=== PATIENT | female | born 2000 | race Caucasian/White ===

== ENCOUNTER 2023-02-03 12:47 | Emergency (ER) | payer SELFPAY ==
[2023-02-03 13:01] VITALS: BP 131/81; PULSE 83; O2SAT 100
[2023-02-03 13:02] VITALS: BP 131/81; PULSE 107; RESP 16; TEMP 37.1; O2SAT 99; BMI 25.9
--- NOTE | 2023-02-03 13:26 | XR_ITS ---
PROCEDURE INFORMATION: Exam: XR Left Ankle Exam date and time: 02/03/2023 2:11 PM Age: 22 years old Clinical indication: Injury or trauma; Fall; Sprain or strain; Ankle; Left; Injury date: Last night; Additional info: Fall, pain in mid lateral foot into ankle TECHNIQUE: Imaging protocol: Radiologic exam of the left ankle. Views: 3 or more views. COMPARISON: No relevant prior studies available. FINDINGS: Bones/joints: No fractures, dislocations, or bone lesions. No significant joint space narrowing or widening. Soft tissues: No soft tissue gas, radiopaque foreign bodies, or masses. IMPRESSION: No acute findings in the left ankle.
--- NOTE | 2023-02-03 13:26 | XR_ITS ---
PROCEDURE INFORMATION: Exam: XR Left Foot Exam date and time: 02/03/2023 2:12 PM Age: 22 years old Clinical indication: Injury or trauma; Fall; Sprain or strain; Foot; Left; Injury date: Last night; Additional info: Fall, pain in mid lateral foot into ankle TECHNIQUE: Imaging protocol: Radiologic exam of the left foot. Views: 3 or more views. COMPARISON: CR XR ANKLE LT MIN 3V 02/03/2023 2:11 PM FINDINGS: Bones/joints: No fractures, dislocations, or focal bone lesions. Soft tissues: No masses, soft tissue gas, or radiopaque foreign bodies. IMPRESSION: No acute findings in the left foot.
--- NOTE | 2023-02-03 13:27 | HMH.EDGENADL ---
Discharge Plan Disposition Patient Disposition: Home, Self-Care Condition: Good Prescriptions Prescriptions: No Action norethindrone-e.estradiol-iron [06/22 (28)] 1 EACH Tablet 1 tab PO DAILY Patient Comments: TAKE 1 TABLET BY MOUTH EVERY DAY phenazopyridine 200 MG Tablet 200 pow PO TID Qty: 6 0RF nitrofurantoin monohyd/m-cryst [Macrobid] 100 MG Capsule 100 mg PO BID Qty: 20 0RF Referrals Follow up/Referrals: Provider,Referral, [Primary Care Provider] - See instructions Alexandre Alex DO [Staff Physician] - See instructions (L foot/ankle injury) Activity Restrictions/Add. Instructions Additional Instructions/Restrictions: You were evaluated in the emergency department today for left foot pain. You do not have fracture, dislocation, or other injury to the left foot or ankle. You have been referred to Dr. Alex for orthopedic follow-up. Take Tylenol and ibuprofen at home if needed for pain. Keep your ankle supported and use crutches until you have been reevaluated. Make an appointment with your primary care physician for reevaluation. Return to the emergency department with new or worsening symptoms. Clinical Impressions Clinical Impression: Acute pain of left foot Stand Alone Forms Stand Alone Forms: Work/School Release Discharge ED Provider: Dwight Thakkar Adult HPI General Chief complaint: Fall Stated complaint: AO fall 02/02, left foot pain Time Seen by Provider: 02/03/23 13:17 Mode of Arrival: Ambulatory Source of Information: Patient Limitations: No Limitations Description of Symptoms (Recalled from ER Triage Doc. by RN): pt reports she was walking along side walk yesterday and tripped, pt had a fall but reports twisting and popping of right foot. History of Present Illness HPI narrative: This otherwise healthy 22-year-old female presents to the emergency department with concerns of left foot pain. Patient states she fell in a friend's driveway last night and the foot rolled outward. She heard a loud pop and has had extreme pain since that time. She is only minimally able to walk on the foot. She describes bruising and swelling. She states she has not taken any medications for her symptoms yet at this time. Patient did not hit her head, no loss of consciousness, no other complaints of injury. Related Data Home Medications Medication Instructions Recorded Confirmed norethindrone 1 mg-ethinyl 1 tab PO DAILY control 06/14/18 06/14/18 estradiol 20 mcg (21)-iron 75 mg (7) tablet (Junel FE 06/22 (28)) Previous Rx's Medication Instructions Recorded nitrofurantoin 100 mg PO BID ##20 06/14/18 monohydrate/macrocrystals 100 mg capsule (Macrobid) phenazopyridine 200 mg tablet 200 pow PO TID ##6 06/14/18 Allergies Allergy/AdvReac Type Severity Reaction Status Date / Time ATUSS Allergy Uncoded 06/14/18 12:22 [facility] Disclaimer: The information contained in this section may have been updated after the patient was seen, as this information can be updated by other users. Social History Smoking Status: Current every day smoker alcohol intake: never current occupational status: employed Travel in the last 8 weeks: None ROS Obtained: Yes All systems reviewed & no additional complaints except as documented Constitutional Constitutional: Denies chills, Denies fever(s), Denies headache(s) and Denies weakness Eyes Eyes: Denies change in vision ENT Ears, Nose, Mouth, and Throat: Denies dizziness, Denies headache(s), Denies nasal congestion and Denies sore throat Cardiovascular Cardiovascular: Denies chest pain, Denies dyspnea and Denies leg edema Respiratory Respiratory: Denies cough and Denies dyspnea Gastrointestinal Gastrointestingal: Denies constipation, diarrhea, nausea or vomiting Genitourinary Female Genitourinary: Denies dysuria Musculoskeletal Musculoskeletal: Reports arthralgias (Left foot and ankle pain), Denie
[2023-02-03 13:34] LABS: Microscopic, Urine URINE MICROSCOPIC (MICROSCOPIC)
[2023-02-03 13:50] LABS: Appearance,Urine Clear (Clear); Bilirubin,Urine Negative (Negative); Blood, Urine Negative (Negative); Color,Urine Yellow (Yellow); Glucose,Urine (UA) Negative (Negative); Ketones,Urine Negative (Negative); Nitrate,Urine Negative (Negative); PH,Urine 7.5 (5.0-8.5); Protein,Urine Negative (Negative); Specific Gravity, Urine 1.015 (1.005-1.030); Urobilinogen,Urine 0.2 EU/dl (0.2)
[2023-02-03 13:51] LABS: Leukocyte Esterase,Urine Negative (Negative)
[2023-02-03 14:09] LABS: Urine Pregnancy, HCG Qual. Negative (Negative)
[2023-02-03 14:30] LABS: Bacteria,Urine Trace /lpf
--- NOTE | 2023-02-03 14:31 | PC.NURSE ---
rounded on pt nothing needed at this time,call light at bs
--- NOTE | 2023-02-03 15:50 | PC.NURSE ---
rounded on pt she resting in bed stated no needs at this time, visitor at bs
[2023-02-03 16:19] VITALS: BP 128/74; PULSE 95; RESP 14; TEMP 36.6; O2SAT 98
--- NOTE | 2023-02-05 02:13 | PC.NURSE ---
chart accessed for demographics for ortho papers
== END 2023-02-03 16:21 | disposition home or self-care (01) ==
PROVIDERS: Emergency Provider Emergency Medicine
DX: M79.672 Pain in left foot (principal); W01.0XXA Fall on same level from slipping, tripping and stumbling without subsequent striking against object, initial encounter; F17.200 Nicotine dependence, unspecified, uncomplicated
CPT/HCPCS: 73610; 73630; 81001; 81025; 99285

== ENCOUNTER 2023-11-05 18:50 | Emergency (ER) | payer OTHER, SELFPAY ==
--- NOTE | 2023-11-05 18:56 | HMH.EDGENADL ---
Discharge Plan Disposition Patient Disposition: Home, Self-Care Condition: Good Prescriptions Prescriptions: New amoxicillin-pot clavulanate 875-125 mg tablet 1 tab PO BID Qty: 20 0RF No Action norethindrone-e.estradiol-iron [06/22 (28)] 1 EACH tablet 1 tab PO DAILY Patient Comments: TAKE 1 TABLET BY MOUTH EVERY DAY phenazopyridine 200 MG tablet 200 pow PO TID Qty: 6 0RF nitrofurantoin monohyd/m-cryst [Macrobid] 100 MG capsule 100 mg PO BID Qty: 20 0RF Referrals Follow up/Referrals: Provider,Referral, [Primary Care Provider] - See instructions Activity Restrictions/Add. Instructions Additional Instructions/Restrictions: Please take all antibiotics as prescribed. Please ask at the pharmacy for a GoodRX card. Please call in the morning and try to get in sooner with your dentist. Return to the ER for any worsening signs or symptoms as needed. Clinical Impressions Clinical Impression: Pain due to dental caries Instructions Patient Instructions: DI for Dental Pain Discharge ED Provider: Tuan Bradley General Adult HPI <MICHAEL Kasper - Last Filed: 11/05/23 19:15> General Chief complaint: Dental/Oral Stated complaint: Left jaw pain Time Seen by Provider: 11/05/23 18:54 History of Present Illness HPI narrative: Patient presents for evaluation of left lower jaw pain. Patient has a history of a fractured tooth and has previous abscess at the same place. Unfortunately patient is self-pay and had could not afford to pay for an extraction. The abscess did go away however patient feels like that she is developing again with increasing dental pain and fullness in the same location. She denies chest pain shortness of breath fever chills hemoptysis hematochezia melena nausea vomit diarrhea. Patient does have a dentist appointment at the end of this month to have the tooth taken out. Related Data Home Medications Medication Instructions Recorded Confirmed norethindrone 1 mg-ethinyl 1 tab PO DAILY control 06/14/18 06/14/18 estradiol 20 mcg (21)-iron 75 mg (7) tablet (06/22 (28)) Previous Rx's Medication Instructions Recorded nitrofurantoin 100 mg PO BID #20 caps 06/14/18 monohydrate/macrocrystals 100 mg capsule (Macrobid) phenazopyridine 200 mg tablet 200 pow PO TID #6 tabs 06/14/18 amoxicillin 875 mg-potassium 1 tab PO BID #20 tabs 11/05/23 clavulanate 125 mg tablet Allergies Allergy/AdvReac Type Severity Reaction Status Date / Time dextromethorphan Allergy Unknown Verified 11/05/23 19:09 allergy reaction ATUSS Allergy Unknown Uncoded 08/19/23 12:38 allergy reaction PFSH <MICHAEL Kasper - Last Filed: 11/05/23 19:15> [facility] Disclaimer: The information contained in this section may have been updated after the patient was seen, as this information can be updated by other users. Social History (Updated 02/03/23 @ 16:06 by Dwight Thakkar MD) Smoking Status: Current every day smoker alcohol intake: never current occupational status: employed Travel in the last 8 weeks: None <MICHAEL Kasper - Last Filed: 11/05/23 19:15> ROS Obtained: Yes Systems reviewed as appropriate & no additional complaints except as documented Physical Exam <MICHAEL Kasper - Last Filed: 11/05/23 19:15> General General appearance: alert and in no apparent distress Expanded ENT Exam Open Mouth Image: 1. Broken tooth #18 with dental caries #17 Teeth exam: Present dental caries, fractured tooth # and dental tenderness #; Absent gingival swelling Neck Neck exam: Present normal inspection; Absent lymphadenopathy Respiratory Respiratory exam: Present normal lung sounds bilaterally Cardiovascular Cardiovascular exam: Present regular rate and normal rhythm Neurological Exam Neurological exam: Present alert and oriented X3 Medical Decision Making <MICHAEL Kasper - Last Filed: 11/05/23 19:15> Medical Records Medical records reviewed: Yes I reviewed the patient's medical records. Lucho Inquiry Pt receiving controlled substance: No Vital Signs: 11/05/23 19:05 11/05/23 19:26 Temperature 97.8 F 98.0 F Temperature Source Oral Oral Pulse Rate 73 Pulse Rate [Left] 87 Respiratory Rate 16 16 Blood Pressure 111/72 Blood Pressure [Right Arm] 139/96 H Blood Pressure Mean [Right Arm] 110 Blood Pressure Source Automatic Cuff Blood Pressure Source [Right Arm] Automatic Cuff Blood Pressure Position Sitting Blood Pressure Position [Right Arm] Sitting 02 Sat by Pulse Oximetry 100 Oxygen Delivery Method Room Air Orders (Tests/Meds): ED MEDICATIONS Discontinued Medications Generic Name Dose Route Start Last Admin Trade Name Freq PRN Reason Stop Dose Admin Amoxicillin/Clavulanate Potassium 1 each 11/05/23 19:03 11/05/23 19:22 Amoxicillin/Clavulanate Potassium 875/125mg Tablet PO 11/05/23 19:04 1 each ONCE ONE Administration Medical Decision Narrative: In summary patient is a 23-year-old female who presents to the emergency department for evaluation of left lower jaw pain. Patient is hemodynamically stable upon arrival, afebrile. Physical exam is remarkable for a fractured molar (tooth 18) with adjacent dental caries of the last molar (tooth #17) with no evidence of gingival edema or erythema however there is mandibular pain on palpation. No discrete abscess is noted by palpation currently. Differential diagnosis includes dentalgia versus developing abscess. Given that the patient has known dentalgia and dental caries I had interactive discussion patient about workup versus antibiotic treatment follow-up with dentistry. Via patient directed decision making she is elected to follow-up with dentistry with antibiotic coverage initiated here. I also offered the patient dental block however she is apprehensive and has elected to decline that currently. Given that patient is appropriate for discharge home with first dose of Augmentin given here and close follow-up with dentistry. <Tuan Bradley MD - Last Filed: 11/05/23 21:38> Vital Signs: 11/05/23 19:05 11/05/23 19:26 Temperature 97.8 F 98.0 F Temperature Source Oral Oral Pulse Rate 73 Pulse Rate [Left] 87 Respiratory Rate 16 16 Blood Pressure 111/72 Blood Pressure [Right Arm] 139/96 H Blood Pressure Mean [Right Arm] 110 Blood Pressure Source Automatic Cuff Blood Pressure Source [Right Arm] Automatic Cuff Blood Pressure Position Sitting Blood Pressure Position [Right Arm] Sitting 02 Sat by Pulse Oximetry 100 Oxygen Delivery Method Room Air Orders (Tests/Meds): ED MEDICATIONS Discontinued Medications Generic Name Dose Route Start Last Admin Trade Name Freq PRN Reason Stop Dose Admin Amoxicillin/Clavulanate Potassium 1 each 11/05/23 19:03 11/05/23 19:22 Amoxicillin/Clavulanate Potassium 875/125mg Tablet PO 11/05/23 19:04 1 each ONCE ONE Administration Medical Decision Narrative: In summary patient is a 23-year-old female who presents to the emergency department for evaluation of left lower jaw pain. Patient is hemodynamically stable upon arrival, afebrile. Physical exam is remarkable for a fractured molar (tooth 18) with adjacent dental caries of the last molar (tooth #17) with no evidence of gingival edema or erythema however there is mandibular pain on palpation. No discrete abscess is noted by palpation currently. Differential diagnosis includes dentalgia versus developing abscess. Given that the patient has known dentalgia and dental caries I had interactive discussion patient about workup versus antibiotic treatment follow-up with dentistry. Via patient directed decision making she is elected to follow-up with dentistry with antibiotic coverage initiated here. I also offered the patient dental block however she is apprehensive and has elected to decline that currently. Given that patient is appropriate for discharge home with first dose of Augmentin given here and close follow-up with dentistry. I was consulted by the DOMINGA, and we discussed the complexity of the problems being addressed. I approved the treatment and management plan for this patient?s care in the Emergency Department, thus performing a substantive portion of the medical decision making. Tuan Bradley MD Critical Care <MICHAEL Kasper - Last Filed: 11/05/23 19:15> Critical Care Time Critical Care Time: No
--- NOTE | 2023-11-05 19:00 | PC.NURSE ---
Don at BS for pt eval
[2023-11-05 19:05] VITALS: BP 139/96; PULSE 87; RESP 16; TEMP 36.6; O2SAT 100; BMI 28.1
[2023-11-05] MEDS: AMOXICILLIN/CLAVULANATE POTASSIUM 875/125MG TABLET 1 EACH PO (19:22)
[2023-11-05 19:26] VITALS: BP 111/72; PULSE 73; RESP 16; TEMP 36.7; O2SAT 98
== END 2023-11-05 19:27 | disposition home or self-care (01) ==
PROVIDERS: Emergency Provider Emergency Medicine
DX: R68.84 Jaw pain (principal); K02.9 Dental caries, unspecified; F17.210 Nicotine dependence, cigarettes, uncomplicated
CPT/HCPCS: 99283

== ENCOUNTER 2023-11-17 19:08 | Emergency (ER) | payer OTHER, SELFPAY ==
[2023-11-17 19:10] VITALS: BP 139/85; PULSE 91; RESP 18; TEMP 36.8; O2SAT 97; BMI 24.0
[2023-11-17 19:23] LABS: Apearance,Urine Clear (Clear); Bilirubin,Urine Negative (Negative); Blood, Urine Negative (Negative); Color,Urine Yellow (Yellow); Glucose,Urine (UA) Negative (Negative); Ketones,Urine Negative (Negative); PH,Urine 6.5 (5.0-8.5); Protein,Urine 2+ (Negative); UTC Leukocyte Esterase,Urine Negative (Negative); UTC Nitrate,Urine Negative (Negative); UTC Pregnancy Test, Urine Negative (Negative); Urobilinogen,Urine 1 EU/dl (0.2)
[2023-11-17 19:30] VITALS: BP 129/89; BP 129/91; BP 132/85; PULSE 89; PULSE 91; PULSE 93
--- NOTE | 2023-11-17 19:30 | ED_ITS ---
Discharge Plan Disposition Patient Disposition: Home, Self-Care Condition: Good Prescriptions Prescriptions: New meclizine [Antivert] 25 mg tablet,chewable 25 mg PO TID PRN (Reason: dizziness) Qty: 20 0RF Referrals Follow up/Referrals: Provider,Referral, MD [Primary Care Provider] - See instructions Activity Restrictions/Add. Instructions Additional Instructions/Restrictions: Drink plenty of fluids. Take the medication (antivert/meclizine) as directed. It will make you drowsy, so don't drive or operate heavy machinery after taking it. Follow up with your regular doctor. GO TO THE ER FOR ANY WORSENING SYMPTOMS Clinical Impressions Clinical Impression: Vertigo Instructions Patient Instructions: DI for Vertigo, Vertigo, Meclizine Discharge ED Provider: Scotty Zarco [facility] General Stated complaint: dizzy Mode of Arrival: Ambulatory Source of Information: Patient Limitations: No Limitations Time Seen by Provider: 11/17/23 19:30 Description of Symptoms (Recalled from Triage Doc. by RN): PATIENT REPORTS HAVING DIZZINESS AND FEELING OFF-BALANCE THROUGHOUT THE DAY TODAY, PRIMARILY WHEN WALKING. SHE REPORTS GETTING YESTERDAY AND HAVING OTHER RECENT STRESSORS. PATIENT SAID SHE DID LIGHTLY HIT HER HEAD ON A WINDOW SILL YESTERDAY, BUT STATES SHE DID NO HAVE LOC OR HEADACHE FROM IT. PATIENT DENIES FALLING, PASSING OUT, EAR PAIN. HEENT Symptoms (Recalled from RN notes): Yes Resp Symptoms (Recalled from RN notes): No Skin Symptoms (Recalled from RN notes): No MS Symptoms (Recalled from RN notes): No Functional Status (Recalled from RN notes): WNL History of Present Illness Provider Complaint: She states that she has had dizziness on and off through out today. She states that her symptoms are worse when she is walking and turning. She denies headache, fever, ear pain and any other symptoms. She denies heart palpitations, chest pain and shortness of breath. Related Data Previous Rx's Medication Instructions Recorded meclizine 25 mg chewable tablet 25 mg PO TID PRN dizziness #20 tabs 11/17/23 (Antivert) Allergies Allergy/AdvReac Type Severity Reaction Status Date / Time dextromethorphan Allergy Unknown Verified 11/05/23 19:09 allergy reaction guaifenesin [From Robitussin] Allergy Verified 11/17/23 19:22 Worker's Comp Is this a Worker's Comp case?: No [facility] Disclaimer: The information contained in this section may have been updated after the patient was seen, as this information can be updated by other users. Social History (Updated 02/03/23 @ 16:06 by Dwight Thakkar MD) Smoking Status: Current every day smoker alcohol intake: never current occupational status: employed Travel in the last 8 weeks: None ROS Obtained: Yes All systems reviewed & no additional complaints except as documented Constitutional Constitutional: Denies chills, Denies fever(s), Denies frequent falls, Denies h eadache(s) and Denies weakness Eyes Eyes: Denies eye discharge and Denies loss of vision ENT Ears, Nose, Mouth, and Throat: Denies disequilibrium, Reports dizziness, Denies otalgia, Denies headache(s), Denies sore throat and Reports vertigo Cardiovascular Cardiovascular: Denies chest pain and Denies syncope Respiratory Respiratory: Denies shortness of breath, Denies chest congestion, Denies cough, Denies stridor and Denies wheezing Gastrointestinal Gastrointestingal: Denies nausea or vomiting Musculoskeletal Musculoskeletal: Reports system reviewed and no additional complaints, except as documented, Denies abnormal gait and Denies arthralgias Integumentary/Breasts Skin/Breast: Denies rash Neurologic Neurologic: Reports as per HPI, Denies abnormal gait, Denies burning sensations, Denies confusion, Denies disequilibrium, Reports dizziness, Denies focal weakness, Denies frequent falls, Denies headache(s), Denies lack of coordination, Denies loss of vision, Denies memory loss, Denies other visual disturbances, Denies paresthesias, Denies radicular pain, Denies seizure-like activity, Denies sensory deficit, Denies syncope, Denies tremor(s), Reports vertigo and Denies weakness Allergic/Immunologic Allergic/Immunologic: Denies wheezing Physical Exam General General appearance: alert and in no apparent distress Head Head exam: atraumatic, normocephalic and normal inspection Eye Eye exam: Present normal appearance, PERRL and EOMI ENT ENT exam: Present normal exam, normal oropharynx, mucous membranes moist, TM's normal bilaterally and normal external ear exam Neck Neck exam: Present normal inspection, full ROM and trachea midline; Absent meningismus or lymphadenopathy Chest Chest inspection: Present normal inspection and symmetric chest wall rise; Absent tenderness Respiratory Respiratory exam: Present normal lung sounds bilaterally; Absent respiratory distress Cardiovascular Cardiovascular exam: Present regular rate and normal rhythm; Absent JVD Abdominal Exam Abdominal exam: Present soft and normal bowel sounds; Absent distention, tenderness or guarding Extremities Exam Extremities exam: Present normal inspection, full ROM and normal capillary refill; Absent calf tenderness Back Exam Back exam: Present normal inspection; Absent tenderness Neurological Exam Neurological exam: Present alert, oriented X3, CN II-XII intact, normal gait and reflexes normal; Absent motor sensory deficit Expanded Neurological Exam Cranial nerves: Normal: EOM function (II, III, IV, ), facial sensation (V), facial palsy (VII), gag reflex (IX), spinal accessory function (XI) and tongue deviation (XII) Cerebellar function: normal gait and Romberg normal Motor strength - LUE: 5/5 Motor strength - RUE: 5/5 Motor strength - LLE: 5/5 Motor strength - RLE: 5/5 Upper motor neuron exam: Normal: damari neglect and sensory extinction Sensory exam upper extremity: Normal: light touch and 2 point discrimination Sensory exam lower extremity: Normal: light touch and 2 point discrimination DTR: 2+: biceps (L), biceps (R), patellar (L), patellar (R), Achilles tendon (L) and Achilles tendon (R) Psychiatric Psychiatric exam: Present normal affect and normal mood Skin Skin exam: Present warm, dry, intact and normal color Lymphatic Lymphatic Findings: no adenopathy Medical Decision Making Medical Records Medical records reviewed: No I reviewed the patient's medical records. Lucho Inquiry Pt receiving controlled substance: No Vital Signs: 11/17/23 19:10 Temperature 98.2 F Temperature Source Oral Pulse Rate [Left Brachial] 91 H Respiratory Rate 18 Blood Pressure [Left Arm] 139/85 Blood Pressure Mean [Left Arm] 103 Blood Pressure Source [Left Arm] Automatic Cuff Blood Pressure Position [Left Arm] Sitting 02 Sat by Pulse Oximetry 97 Oxygen Delivery Method Room Air Lab Data Lab results reviewed: Yes I reviewed the patient's lab results. Lab Results 11/17/23 19:22: Urine Color Yellow, Urine Appearance Clear, Urine pH 6.5, Ur Specific [place] 1.020, Urine Protein 2+, Urine Glucose (UA) Negative, Urine Ketones Negative, Urine Blood Negative, Urine Nitrate Negative, Urine Bilirubin Negative, Urine Urobilinogen 1, Ur Leukocyte Esterase Negative, Tst Clinic Negative
[2023-11-17 19:42] VITALS: BP 139/85; PULSE 91; RESP 18; TEMP 36.8; O2SAT 97
== END 2023-11-17 19:46 | disposition home or self-care (01) ==
PROVIDERS: Emergency Provider Nurse Practitioner Family
DX: R42 Dizziness and giddiness; F17.210 Nicotine dependence, cigarettes, uncomplicated
CPT/HCPCS: 81003; 81025; 99204; 99212; G0463

== ENCOUNTER 2023-11-21 13:54 | Emergency (ER) | payer OTHER, SELFPAY ==
[2023-11-21 13:55] VITALS: BP 130/87; PULSE 125; RESP 20; TEMP 37.2; O2SAT 97; BMI 24.0
--- NOTE | 2023-11-21 14:03 | ED_ITS ---
<Statement entered by Jemma De Oliveira MD - 11/21/23 23:12> I was consulted by the DOMINGA, and we discussed the complexity of the problems being addressed. I approved the treatment and management plan for this patient's care in the emergency department, thus performing a substantive portion of the medical decision making. Jemma De Oliveira MD, ARVIN, FACEP Discharge Plan Disposition Patient Disposition: Home, Self-Care Condition: Good Prescriptions Prescriptions: New vancomycin 125 mg capsule 125 mg PO QID 10 Days Qty: 40 0RF ondansetron 4 mg tablet,disintegrating 4 mg PO Q6H PRN (Reason: nausea and vomiting) Qty: 10 0RF Referrals Follow up/Referrals: Provider,Referral, MD [Primary Care Provider] - See instructions Activity Restrictions/Add. Instructions Additional Instructions/Restrictions: With your PCP for any worsening signs or symptoms. Return to the ER for any worsening signs or symptoms including inability to tolerate oral intake. Clinical Impressions Clinical Impression: C. difficile diarrhea Instructions Patient Instructions: DI for Diarrhea and Traveler's Diarrhea -- Adult, DI for Diarrhea and Traveler's Diarrhea -- Child, DI for Nausea -- Adult, DI for Nausea -- Child Discharge ED Provider: Chet Hernandez General Adult HPI General Chief complaint: Nausea/Vomiting/Diarrhea Stated complaint: c diff Time Seen by Provider: 11/21/23 14:01 History of Present Illness HPI narrative: Patient presents for evaluation of nausea vomiting and diarrhea. Patient reports that she recently was given a course of antibiotics for a tooth infection . 3 days ago she began having nausea vomiting and diarrhea. It is now progressed to the point where she is intolerant of any oral intake and patient reports that her stool is green and smelly . Patient was seen yesterday at [facility] diagnosed with C. difficile and given prescriptions for Flagyl and oral vancomycin. However patient could not afford vancomycin and thus she is only taking the Flagyl. Patient presents today with no improvement in her symptoms. She denies chest pain chills hemoptysis hematochezia melena hematemesis hematuria. Related Data Previous Rx's Medication Instructions Recorded ondansetron 4 mg disintegrating 4 mg PO Q6H PRN nausea and 11/21/23 tablet vomiting #10 tabs vancomycin 125 mg capsule 125 mg PO QID 10 days #40 caps 11/21/23 Allergies Allergy/AdvReac Type Severity Reaction Status Date / Time dextromethorphan Allergy Unknown Verified 11/21/23 15:34 allergy reaction guaifenesin [From Robitussin] Allergy Verified 11/21/23 15:34 [facility] Disclaimer: The information contained in this section may have been updated after the patient was seen, as this information can be updated by other users. Social History (Updated 02/03/23 @ 16:06 by Dwight Thakkar MD) Smoking Status: Current every day smoker alcohol intake: never current occupational status: employed Travel in the last 8 weeks: None ROS Obtained: Yes Systems reviewed as appropriate & no additional complaints except as documented Physical Exam General General appearance: alert and in no apparent distress Respiratory Respiratory exam: Present normal lung sounds bilaterally Cardiovascular Cardiovascular exam: Present tachycardia, normal heart sounds, +S1 and +S2 Abdominal Exam Abdominal exam: Present soft, tenderness (Mild diffuse abdominal tenderness) and normal bowel sounds; Absent guarding, rebound or rigidity Extremities Exam Extremities exam: Present normal inspection and full ROM Back Exam Back exam: Present normal inspection and full ROM; Absent tenderness Neurological Exam Neurological exam: Present alert and oriented X3 Psychiatric Psychiatric exam: Present normal affect and normal mood Skin Skin exam: Present warm, dry and normal color Medical Decision Making Medical Records Medical records reviewed: Yes I reviewed the patient's medical records. Lucho Inquiry Pt receiving controlled substance: No Vital Signs: 11/21/23 13:55 11/21/23 15:00 11/21/23 16:00 Temperature 99.0 F Temperature Source Oral Pulse Rate 92 H 59 L Pulse Rate [Left Radial] 125 H Respiratory Rate 20 16 16 Blood Pressure 138/83 112/68 Blood Pressure [Right Arm] 130/87 Blood Pressure Mean 101 74 Blood Pressure Mean [Right Arm] 101 Blood Pressure Source [Right Arm] Automatic Cuff Blood Pressure Position [Right Arm] Sitting 02 Sat by Pulse Oximetry 97 100 100 Oxygen Delivery Method Room Air Lab Data Lab results reviewed: Yes I reviewed the patient's lab results. Lab Results 11/21/23 14:35: WBC 8.6, RBC 4.64, Hgb 14.0, Hct 40.5, MCV 87.3, MCH 30.1, MCHC 34.4, RDW 13.3, Plt Count 285, MPV 8.7, Neut % (Auto) 75.8, Lymph % (Auto) 16.7, [place] % (Auto) 4.7, Eos % (Auto) 1.4, Baso % (Auto) 1.4, Neut # (Auto) 6.6, Lymph # (Auto) 1.5, [place] # (Auto) 0.4, Eos # (Auto) 0.1, Baso # (Auto) 0.1, ESR 11, PT 11.9, INR 1.11 H, Lactate 1.3, Serum HCG, Qual Negative 11/21/23 15:30: VBG pH 7.41, VBG pCO2 32.2 L, VBG pO2 52.2 H, VBG HCO3 19.9 L, V BG Total CO2 20.9 L, VBG O2 Saturation 88.0 H, VBG Base Excess -4.7 L, VBG Lactic Acid 2.5 H 11/21/23 16:20: Sodium 134 L, Potassium 3.7, Chloride 108 H, Carbon Dioxide 19 L , Anion Gap 10.7, BUN 3 L, Creatinine 0.40 L, Estimated Creat Clear 177, Estimated GFR 201, Est GFR ( Amer) 244, Glucose 71 L, Calcium 7.9 L, M agnesium 1.2 L, Total Bilirubin 0.3, AST 21, ALT 11 L, Alkaline Phosphatase 52, C-Reactive Protein 2.1, Total Protein 4.5 L, Albumin 2.5 L, Globulin 2.0, Albumin/Globulin Ratio 1.3, Lipase 21 L, Procalcitonin < 0.030 11/21/23 14:35 11/21/23 16:20 Orders (Tests/Meds): ED MEDICATIONS Discontinued Medications Generic Name Dose Route Start Last Admin Trade Name Tasia PRN Reason Stop Dose Admin Acetaminophen 1,000 mg 11/21/23 14:12 11/21/23 14:25 Acetaminophen 1,000mg/100ml Vial IV 11/21/23 14:13 1,000 mg ONCE ONE Administration Lactated Ringer's 1,000 mls @ 999 mls/hr 11/21/23 14:12 11/21/23 14:25 Lactated Ringer's 1000 Ml Bag IV 11/21/23 15:12 999 mls/hr .Q1H1M ONE Administration Lactated Ringer's 1,510 mls @ 755 mls/hr 11/21/23 14:28 11/21/23 15:13 Lactated Ringer's 1000 Ml Bag 30 ml/kg infuse over 2 hr (1510 ml) 11/21/23 16:27 755 mls/hr IV Administration .Q2H ONE Ondansetron HCl 4 mg 11/21/23 14:12 11/21/23 14:25 Ondansetron 4mg/2ml Vial IV 11/21/23 14:13 4 mg ONCE ONE Administration ORDERS Category Date Time Status CT abdomen pelvis wo con Stat Cat Scan 11/21/23 14:12 Completed CBC w/Auto Diff [Complete Blood Count Auto Diff] Stat Lab 11/21/23 14:35 Completed CMP [Comprehensive Metabolic Panel] Stat Lab 11/21/23 16:20 Completed CRP [C-Reactive Protein] Stat Lab 11/21/23 16:20 Completed Diarrhea 23 Panel, PCR Stat Lab 11/21/23 16:54 Received ESR [Erythrocyte Sedimentation Rate] Stat Lab 11/21/23 14:35 Completed INR [Prothrombin Time INR] Stat Lab 11/21/23 14:35 Completed Lactic Acid Stat Lab 11/21/23 14:35 Completed Lipase Stat Lab 11/21/23 16:20 Completed Magnesium Stat Lab 11/21/23 16:20 Completed Procalcitonin Stat Lab 11/21/23 16:20 Completed Serum [HCG Qualitative, Serum] Stat Lab 11/21/23 14:35 Completed VBG [Venous Blood Gas] Stat RT 11/21/23 15:30 Completed Tissue Perfus/Sepsis Re-Eval Sepsis Re-Evaluation Performed: Yes Date Performed: 11/21/23 Time Performed: 16:57 Medical Decision Narrative: In summary patient is a 23-year-old female who presents to the emergency department for evaluation of nausea vomiting diarrhea. Patient is normotensive but tachycardic at 130 at the time of my exam upon arrival, with a temperature of 99.0 orally. Physical exam is remarkable for tachycardic pulse, diffuse abdominal tenderness that is mild and normal bowel sounds.. Differential diagnosis includes C. difficile versus dehydration versus failure of outpatient therapy versus arrhythmia etc. Initial workup will be conducted with hematologic labs twelve-lead EKG CT scan of the abdomen pelvis. Initial interventions include sepsis bolus, acetaminophen, Toradol, antiemetics continuous cardiac monitoring and continuous pulse oximetry. Initial workup reviewed by me and her hematologic labs are nonactionable with the exception of a low magnesium which has been repleted and my informal interpretation of her CT scan abdomen pelvis shows no evidence of acute processes.. Upon repeat evaluation patient had acceptable resolution of her symptoms and is tolerating p.o.. Given this patient is appropriate for discharge and I have sent her oral vancomycin prescription to the clinic pharmacy and notify the patient. Sepsis reassessment: Patient has now normal blood pressure heart rate of 59 temperature is 99 still satting at 100% room air with normal white count normal CMP with exception of a slightly low mag which has been repleted. Critical Care Critical Care Time Critical Care Time: No
--- NOTE | 2023-11-21 14:12 | CT_ITS ---
FINAL REPORT TECHNIQUE: Noncontrast CT exam of the abdomen and pelvis. This study was performed with techniques to keep radiation doses as low as reasonably achievable (ALARA). Individualized dose reduction techniques using automated exposure control or adjustment of mA and/or kV according to the patient''s size were employed. CLINICAL HISTORY: Acute abdominal pain, C. difficile FINDINGS: Abdomen: Lung bases are clear. Liver, spleen, pancreas and adrenal glands have a normal CT appearance in their limited unenhanced state. The gallbladder is normal. The kidneys show no stone disease or obstruction. No obvious renal mass is present. No ureteral stones are present. Pelvis: The appendix, uterus, and ovaries are unremarkable. No distal ureteral stones are seen. Bladder is unremarkable. No fluid collection or adenopathy is seen. IMPRESSION: No acute process. Reviewed, Interpreted and Dictated by Laury Tapia MD Transcribed by Paty Jensen Authenticated and [facility]
[2023-11-21] MEDS: ONDANSETRON 4MG/2ML VIAL 4 MG IV (14:25)
[2023-11-21] MEDS: LACTATED RINGERS 1000ML 1,000 ML 999 ML IV (14:25)
[2023-11-21] MEDS: ACETAMINOPHEN 1,000MG/100ML VIAL 1000 MG IV (14:25)
[2023-11-21 14:55] LABS: Basophils # 0.1 K/mm3 (0-0.2); Basophils % 1.4 % (0.1-2.0); Eosinophils # 0.1 K/mm3 (0.0-0.4); Eosinophils % 1.4 % (0.1-12.0); Hematocrit 40.5 % (37.0-47.0); Lymphocytes # 1.5 K/mm3 (0.7-4.5); Lymphocytes % 16.7 % (10-50); Mean Corpuscular HGB Conc 34.4 g/dL (31.8-35.4); Mean Corpuscular Hemoglobin 30.1 pg (27.0-31.2); Mean Corpuscular Volume 87.3 fl (81-99); Mean Platelet Volume 8.7 fl (7.4-10.4); Monocytes # 0.4 K/mm3 (0.1-1.0); Monocytes % 4.7 % (1.7-9.3); Neutrophils # 6.6 K/mm3 (1.8-7.8); Neutrophils % 75.8 % (37.0-80.0); Platelet Count 285 K/mm3 (142-424); Red Blood Count 4.64 M/mm3 (4.20-5.40); Red Cell Distribution Width 13.3 % (11.5-17.5); White Blood Count 8.6 K/mm3 (4.8-10.8)
[2023-11-21 15:00] VITALS: BP 138/83; PULSE 92; RESP 16; O2SAT 100
[2023-11-21 15:08] LABS: INR 1.11 (0.9-1.1); Prothrombin Time 11.9 seconds (10.1-12.5)
--- NOTE | 2023-11-21 15:10 | PC.NURSE ---
RT AWARE OF VBG
[2023-11-21] MEDS: LACTATED RINGERS 755 ML IV (15:13)
[2023-11-21 15:14] LABS: HCG Qualitative, Serum Negative (Negative)
[2023-11-21 15:16] LABS: Lactic Acid 1.3 mmol/L (0.7-2.1)
[2023-11-21 15:23] LABS: Erythrocyte Sedimentation Rate 11 mm/hr (0-20)
[2023-11-21 15:29] LABS: VBG Base Excess -4.7 mmol/L (-2.4-2.3); VBG HCO3 19.9 mmol/L (23-30); VBG PCO2 32.2 mmol/L (35-51); VBG PH 7.41 mmol/L (7.31-7.41); VBG PO2 52.2 mmol/L (28-40); VBG Total CO2 20.9 mmol/L (23-27)
[2023-11-21 15:31] LABS: Lactate Venous 2.5 mmol/L (0.4-2.0)
--- NOTE | 2023-11-21 15:44 | PC.NURSE ---
DR CHEN AND THIS NURSE WENT TO CT SCAN PT REFUSED CONTRAST FOR SCAN, DR CHEN DISCUSSED IN LENGTH SAFETY AND REASON FOR CT SCAN WITH CONTRAST, PT AGREES TO SCAN WITH CONTRAST. AFTER LEAVING PTS SIDE, RADIOLOGY WENT TO HAVE PT SIGN CONSENT AND REFUSED CONTRAST
--- NOTE | 2023-11-21 15:50 | PC.NURSE ---
PT RETURNED FROM RADIOLOGY.
--- NOTE | 2023-11-21 15:55 | ECG_ITS ---
APPROVED REPORT Exam: Resting ECG HR:62 bpm ECG Measurements Heart Rate 62 AXES MD 118 P 69 QRSd 86 QRS -34 QT 397 T 74 QTc 402 Conclusion SINUS RHYTHM WITH SHORT MD INTERVAL INDETERMINATE AXIS ABNORMAL ECG UNCONFIRMED REPORT Electronically signed by : Scotty De Oliveira, 11/21/2023 23:15:57
[2023-11-21 16:00] VITALS: BP 112/68; PULSE 59; RESP 16; O2SAT 100
--- NOTE | 2023-11-21 16:22 | PC.NURSE ---
assisted pt to the restroom to attempt to collect stool sample. provided with supplies.
[2023-11-21 16:36] LABS: Chloride 108 mmol/L (98-107); Potassium 3.7 mmoL/L (3.5-5.1); Sodium 134 mmol/L (136-145)
[2023-11-21 16:38] LABS: Alanine Aminotransferase 11 U/L (12-78); Aspartate Amino Transferase 21 U/L (14-36); Blood Urea Nitrogen 3 mg/dl (7-17); Creatinine Clearance Estimated 177 mL/min (50-200); Estimated Glomerular Filt Rate 201 ml/min (>60); GFR (African American) 244 ML/MIN (>60)
[2023-11-21 16:39] LABS: Albumin Level 2.5 g/dl (3.5-5.0); Albumin/Globulin Ratio 1.3 (1.1-1.8); Alkaline Phosphatase 52 U/L (38-126); Anion Gap 10.7 mEq/L (5-15); Bilirubin,Total 0.3 mg/dl (0.2-1.3); Calcium 7.9 mg/dl (8.4-10.2); Carbon Dioxide 19 mmol/L (22.0-30.0); Glucose 71 mg/dl (74-100); Lipase 21 U/L (23-300); Magnesium 1.2 mg/dl (1.6-2.3); Total Protein,Serum 4.5 g/dl (6.3-8.2)
[2023-11-21 16:45] LABS: C-Reactive Protein 2.1 mg/L (0-4)
[2023-11-21 17:05] LABS: Adenovirus F 40/41, stool Not Detected (NotDetected); Astrovirus Not Detected (NotDetected); Campylobacter Not Detected (NotDetected); Cryptosporidium Not Detected (NotDetected); Cyclospora Cayetanesis Not Detected (NotDetected); Entamoeba histolytica Not Detected (NotDetected); Enteroaggregative E coli Not Detected (NotDetected); Enteropathogenic E coli Not Detected (NotDetected); Enterotoxigenic E coli Not Detected (NotDetected); Giardia lamblia Not Detected (NotDetected); Norovirus Not Detected (NotDetected); Plesimonas Shigalloides, PCR Not Detected (NotDetected); Rotavirus A Not Detected (NotDetected); Salmonella, PCR Not Detected (NotDetected); Sapovirus Not Detected (NotDetected); Shiga-like toxin E coli Not Detected (NotDetected); Shigella Enterovasive E coli Not Detected (NotDetected); Vibrio Cholerae Not Detected (NotDetected); Vibrio, PCR Not Detected (NotDetected); Yersinia Entercolitica, PCR Not Detected (NotDetected)
[2023-11-21 17:13] LABS: Procalcitonin < 0.030 ng/mL (0.0-2.0)
[2023-11-21 17:59] VITALS: BP 110/70; PULSE 60; RESP 20; TEMP 36.7; O2SAT 98
[2023-11-21 19:00] LABS: Clostridium Difficile A/B, PCR Detected (NotDetected)
[2023-11-21 19:32] LABS: Reflex Lactic Add Lactic Reflex
== END 2023-11-21 18:00 | disposition home or self-care (01) ==
PROVIDERS: Physician Assistant; Emergency Provider Emergency Medicine
DX: A04.71 Enterocolitis due to Clostridium difficile, recurrent (principal); R19.7 Diarrhea, unspecified; R11.2 Nausea with vomiting, unspecified; E83.42 Hypomagnesemia; F17.210 Nicotine dependence, cigarettes, uncomplicated
CPT/HCPCS: 74176; 80053; 82803; 83605; 83690; 83735; 84145; 84703; 85025; 85610; 85651; 86140; 87507; 93005; 96361; 96374; 96375; 99285; J0131; J2405; J7120

== ENCOUNTER 2023-11-22 14:19 | Emergency (ER) | payer OTHER, SELFPAY ==
[2023-11-22 14:20] VITALS: BP 147/97; PULSE 75; RESP 13; TEMP 36.9; O2SAT 100; BMI 24.0
[2023-11-22] MEDS: LACTATED RINGERS 1000ML 1,000 ML 999 ML IV (14:53)
[2023-11-22 14:54] LABS: Basophils # 0.1 K/mm3 (0-0.2); Basophils % 0.6 % (0.1-2.0); Eosinophils # 0.1 K/mm3 (0.0-0.4); Hematocrit 46.7 % (37.0-47.0); Hemoglobin 15.4 g/dL (12.2-16.2); Lymphocytes % 22.2 % (10-50); Mean Corpuscular Hemoglobin 29.3 pg (27.0-31.2); Mean Corpuscular Volume 88.9 fl (81-99); Mean Platelet Volume 7.8 fl (7.4-10.4); Monocytes # 0.4 K/mm3 (0.1-1.0); Monocytes % 4.5 % (1.7-9.3); Neutrophils # 6.6 K/mm3 (1.8-7.8); Neutrophils % 71.7 % (37.0-80.0); Platelet Count 479 K/mm3 (142-424); Red Blood Count 5.25 M/mm3 (4.20-5.40); Red Cell Distribution Width 13.5 % (11.5-17.5); White Blood Count 9.2 K/mm3 (4.8-10.8)
[2023-11-22] MEDS: ONDANSETRON 4MG/2ML VIAL 4 MG IV (14:54)
[2023-11-22 14:59] LABS: Chloride 107 mmol/L (98-107); Potassium 3.7 mmoL/L (3.5-5.1); Sodium 142 mmol/L (136-145)
[2023-11-22 15:02] LABS: Alanine Aminotransferase 20 U/L (12-78); Albumin Level 4.7 g/dl (3.5-5.0); Albumin/Globulin Ratio 1.5 (1.1-1.8); Alkaline Phosphatase 115 U/L (38-126); Anion Gap 13.7 mEq/L (5-15); Aspartate Amino Transferase 27 U/L (14-36); Bilirubin,Total 0.5 mg/dl (0.2-1.3); Blood Urea Nitrogen 4 mg/dl (7-17); Calcium 9.9 mg/dl (8.4-10.2); Carbon Dioxide 25 mmol/L (22.0-30.0); Creatinine Clearance Estimated 118 mL/min (50-200); Estimated Glomerular Filt Rate 126 ml/min (>60); GFR (African American) 153 ML/MIN (>60); Globulin 3.2 g/dL (1.3-3.2); Glucose 87 mg/dl (74-100); Total Protein,Serum 7.9 g/dl (6.3-8.2)
[2023-11-22 15:03] LABS: Magnesium 2.1 mg/dl (1.6-2.3)
--- NOTE | 2023-11-22 15:11 | HMH.EDGENADL ---
Discharge Plan Disposition Patient Disposition: Home, Self-Care Prescriptions Prescriptions: New promethazine 25 mg tablet 25 mg PO Q6H PRN (Reason: nausea and vomiting) Qty: 20 0RF No Action vancomycin 125 mg capsule 125 mg PO QID 10 Days Qty: 40 0RF ondansetron 4 mg tablet,disintegrating 4 mg PO Q6H PRN (Reason: nausea and vomiting) Qty: 10 0RF Referrals Follow up/Referrals: Provider,Referral, MD [Primary Care Provider] - See instructions Activity Restrictions/Add. Instructions Additional Instructions/Restrictions: Call your family doctor to establish care for this visit to the emergency department and schedule follow-up within 48 hours to ensure improvement. If you have any worsening of your condition or any other concerning signs or symptoms, return to the emergency department or your primary care doctor for further evaluation. Phenergan every 6 hours for nausea and vomiting. Clinical Impressions Clinical Impression: Diarrhea, C. difficile diarrhea, Vomiting Instructions Patient Instructions: DI for Diarrhea and Traveler's Diarrhea -- Adult, DI for Diarrhea and Traveler's Diarrhea -- Child, DI for Nausea -- Adult, DI for Nausea -- Child Discharge ED Provider: Tuan Bradley General Adult HPI General Chief complaint: Nausea/Vomiting/Diarrhea Stated complaint: diarrhea, cant keep anything down Time Seen by Provider: 11/22/23 14:22 Mode of Arrival: Ambulatory Source of Information: Patient Limitations: No Limitations Description of Symptoms (Recalled from ER Triage Doc. by RN): pt presents to ED with c/o vomitting and diarrhea. pt was diagnosed with c diff recently and has been taking vancomycin. pt reports symptoms ongoing for the past week. History of Present Illness HPI narrative: Please note that above description of symptoms, in this electronic medical record under categorization of recalled from ER triage doctor by RN are reflective of an initial nursing assessment, however, is not reflective of my full history and physical exam that was personally taken and clarified. Consequentially, this preceding description of symptoms, which may include the patient's categorized chief complaint in the EMR, do not reflect my personal clinical impression, and the ultimate description of history of present illness and patient stated complaints should be deferred to this section of the note. Unless stated otherwise or congruent with this section of the note, additional signs, symptoms, or incongruence should be interpreted as inaccurate with my clinical impression. Related Data Previous Rx's Medication Instructions Recorded ondansetron 4 mg disintegrating 4 mg PO Q6H PRN nausea and 11/21/23 tablet vomiting #10 tabs vancomycin 125 mg capsule 125 mg PO QID 10 days #40 caps 11/21/23 promethazine 25 mg tablet 25 mg PO Q6H PRN nausea and 11/22/23 vomiting #20 tabs Allergies Allergy/AdvReac Type Severity Reaction Status Date / Time dextromethorphan Allergy Unknown Verified 11/21/23 15:34 allergy reaction guaifenesin [From Robitussin] Allergy Verified 11/21/23 15:34 [facility] Disclaimer: The information contained in this section may have been updated after the patient was seen, as this information can be updated by other users. Social History (Updated 02/03/23 @ 16:06 by Dwight Thakkar MD) Smoking Status: Former smoker alcohol intake: never current occupational status: employed Travel in the last 8 weeks: None ROS Obtained: Yes All systems reviewed & no additional complaints except as documented Physical Exam General General appearance: alert and in no apparent distress Head Head exam: atraumatic and normocephalic Eye Eye exam: Present normal appearance, PERRL and EOMI ENT ENT exam: Present mucous membranes moist Neck Neck exam: Present normal inspection, full ROM and trachea midline Respiratory Respiratory exam: Absent respiratory distress, wheezes, stridor, accessory muscle use or prolonged expiratory phase Cardiovascular Cardiovascular exam: Present normal rhythm Abdominal Exam Abdominal exam: Present soft; Absent distention, tenderness, guarding, rebound or rigidity Extremities Exam Extremities exam: Absent edema Neurological Exam Neurological exam: Present alert, oriented X3, CN II-XII intact and normal gait; Absent motor sensory deficit Skin Skin exam: Present warm and dry; Absent diaphoresis or erythema Medical Decision Making Medical Records Medical records reviewed: Yes I reviewed the patient's medical records. Lucho Inquiry Pt receiving controlled substance: No Lucho was queried for this patient: No Vital Signs: 11/22/23 14:20 Temperature 98.4 F Temperature Source Oral Pulse Rate [Left Radial] 75 Respiratory Rate 13 Blood Pressure [Right Arm] 147/97 H Blood Pressure Mean [Right Arm] 113 02 Sat by Pulse Oximetry 100 Oxygen Delivery Method Room Air Lab Data Lab Results 11/22/23 14:45: WBC 9.2, RBC 5.25, Hgb 15.4, Hct 46.7, MCV 88.9, MCH 29.3, MCHC 33.0, RDW 13.5, Plt Count 479 H D, MPV 7.8, Neut % (Auto) 71.7, Lymph % (Auto) 22.2, [place] % (Auto) 4.5, Eos % (Auto) 1.0, Baso % (Auto) 0.6, Neut # (Auto) 6.6, Lymph # (Auto) 2.0, [place] # (Auto) 0.4, Eos # (Auto) 0.1, Baso # (Auto) 0.1, Sodium 142, Potassium 3.7, Chloride 107, Carbon Dioxide 25, Anion Gap 13.7, BUN 4 L D, Creatinine 0.60 D, Estimated Creat Clear 118, Estimated GFR 126, Est GFR ( Amer) 153 D, Glucose 87 D, Calcium 9.9, Magnesium 2.1 D, Total Bilirubin 0.5, AST 27 D, ALT 20 D, Alkaline Phosphatase 115, Total Protein 7.9 D, Albumin 4.7 D, Globulin 3.2, Albumin/Globulin Ratio 1.5 11/22/23 14:45 11/22/23 14:45 Orders (Tests/Meds): ED MEDICATIONS Discontinued Medications Generic Name Dose Route Start Last Admin Trade Name Freq PRN Reason Stop Dose Admin Lactated Ringer's 1,000 mls @ 999 mls/hr 11/22/23 14:38 11/22/23 14:53 Lactated Ringer's 1000 Ml Bag IV 11/22/23 15:38 999 mls/hr .Q1H1M ONE Administration Ondansetron HCl 4 mg 11/22/23 14:38 11/22/23 14:54 Ondansetron 4mg/2ml Vial IV 11/22/23 14:39 4 mg ONCE ONE Administration ORDERS Category Date Time Status CBC w/Auto Diff [Complete Blood Count Auto Diff] Stat Lab 11/22/23 14:45 Completed CMP [Comprehensive Metabolic Panel] Stat Lab 11/22/23 14:45 Completed Magnesium Stat Lab 11/22/23 14:45 Completed Medical Decision Narrative: 23-year-old female recent diagnosis of C. difficile diarrhea presenting with diarrhea and vomiting. Patient states that she was seen at the emergency department 3 times in the past 3 days, [place], here twice, now here again. States that Zofran is helping, but she still vomiting through it. Unable to tolerate her oral vancomycin. Came for further evaluation because she feels as if she is dying. No fevers or chills, no blood in her stool or vomit, still tolerating Gatorade and liquid intake, does not feel that is enough. History obtained with patient as well as chart review. On arrival, patient hemodynamically stable, nontachycardic, normotensive, afebrile, very well-appearing. Abdomen is soft, nontender, nondistended. Flanks are nontender. Differential includes colitis, enteritis, gastroenteritis, among others. Patient was given oral vancomycin, fluids, Zofran. Able to tolerate p.o. intake. Hospital medicine was contacted and case was discussed at length after consult. Visiting patient, patient opted for home-going with Phenergan and other nausea control as well as oral vancomycin at home. I feel this is reasonable. Because patient at baseline without signs or symptoms of clinical decompensation, deemed appropriate for discharge. Results were relayed to patient who voiced understanding and were agreeable to outpatient management and follow up. I discussed my clinical impression with patient and answered all questions. At this time, the evidence for any other entities in the differential is insufficient to warrant any further testing or ED observation. This was explained as well. Advisory was given that persistent or worsening symptoms require further evaluation. I confirmed the understanding of this discussion. Supply Chain Development Manager disclaimer Much of this encounter note is an electronic service line bus cleaner spoken language to printed text. Electronic service line bus cleaner of the spoken language may permit errors. Although I have reviewed the note, some errors may still exist. Critical Care Critical Care Time Critical Care Time: No
--- NOTE | 2023-11-22 15:12 | PC.NURSE ---
DR IVERSON SPEAKING WITH DR ORTIZ
--- NOTE | 2023-11-22 15:18 | EXP.MED.CON ---
History of Present Illness *Admission Date: 11/22/23 *Reason for visit:: Nausea, vomiting, and diarrhea *History of present illness: 23-year-old female who reports she recently got this past weekend. Has a history of anxiety. States she has had diarrhea for the past 4 to 5 days. Was diagnosed 3 days ago with C. difficile diarrhea at [facility]. Vancomycin was initiated but she did not pick the medicine up. Presented to our hospital yesterday with persistent nausea vomiting and diarrhea. Labs essentially normal/nonactionable. Was started on vancomycin and Zofran. Has had poor tolerance only able to keep this morning's dose down per her report. Feels woozy and dizzy. Still having multiple loose watery bowel movements a day. Denies any fever, blood in stool or vomit, chest pain, shortness of breath. Vitals normal. Labs obtained in the ER today nonactionable and still remained stable with normal kidney function and electrolytes. White cell count within normal range. Medicine was consulted for evaluation to assist with decision for inpatient management versus discharge home with continued outpatient management. Patient appears quite anxious on my interview. Exam relatively benign. Stable on room air. Receiving IV fluids. Reports she thinks the Zofran may be starting to take effect. Has not tried Phenergan, is open to this. Was able to keep her vancomycin capsule down this morning. Denies any fever or chills. States I feel like I am going to . This is causing her to be very anxious which she recognizes and reports. [facility] Disclaimer: The information contained in this section may have been updated after the patient was seen, as this information can be updated by other users. Social History (Updated 11/22/23 @ 16:07 by Scotty Stevens MD) Smoking Status: Former smoker alcohol intake: never current occupational status: employed Travel in the last 8 weeks: None household members: spouse Review of Systems Review of Systems Review of systems (narrative): 14 point review of systems performed, pertinent positives and negatives as per HPI Exam Data for Last 24 hours Vital signs and Labs for Last 24 Hours: Temp Pulse Resp BP Pulse Ox O2 Del Method 98.4 F 75 13 147/97 H 100 Room Air 11/22/23 14:20 11/22/23 14:20 11/22/23 14:20 11/22/23 14:20 11/22/23 14:20 11/22/23 14:20 Laboratory Results - last 24 hr 11/22/23 14:45: WBC 9.2, RBC 5.25, Hgb 15.4, Hct 46.7, MCV 88.9, MCH 29.3, MCHC 33.0, RDW 13.5, Plt Count 479 H D, MPV 7.8, Neut % (Auto) 71.7, Lymph % (Auto) 22.2, [place] % (Auto) 4.5, Eos % (Auto) 1.0, Baso % (Auto) 0.6, Neut # (Auto) 6.6, Lymph # (Auto) 2.0, [place] # (Auto) 0.4, Eos # (Auto) 0.1, Baso # (Auto) 0.1, Sodium 142, Potassium 3.7, Chloride 107, Carbon Dioxide 25, Anion Gap 13.7, BUN 4 L D, Creatinine 0.60 D, Estimated Creat Clear 118, Estimated GFR 126, Est GFR ( Amer) 153 D, Glucose 87 D, Calcium 9.9, Magnesium 2.1 D, Total Bilirubin 0.5, AST 27 D, ALT 20 D, Alkaline Phosphatase 115, Total Protein 7.9 D, Albumin 4.7 D, Globulin 3.2, Albumin/Globulin Ratio 1.5 I & O for Last 24 hours: Intake & Output 11/19/23 11/20/23 11/21/23 11/22/23 23:59 23:59 23:59 23:59 Weight 50.349 kg Constitutional Constitutional: no acute distress and cooperative *Routine HEENT Exam Head: Present normocephalic Eye: Present EOMI and PERRL ENT: Present mucous membranes moist *Routine Neck Exam Neck: Present supple; Absent lymphadenopathy *Routine Respiratory Exam Respiratory: Present CTA bilaterally; Absent respiratory distress, rhonchi, wheezes or crackles *Routine Cardiovascular Exam Cardiovascular: Present RRR *Routine Abdominal Exam Abdominal: Present soft and normoactive bowel sounds; Absent tenderness *Routine Rectal Exam Patient deferred: visual exam *Routine Exam Patient deferred: external exam *Routine Extremities Exam Extremities: Absent cyanosis, clubbing or edema Comments: Small skin tear on bottom of left foot, no bleeding or significant puncture. No erythema. *Routine Skin Exam Skin: Present intact and warm; Absent erythema or rash *Routine Neurological Exam Neurological: Present alert, oriented X3, moving all extremities and normal speech; Absent altered mental status Routine Psychiatric Exam Psychiatric: Present anxious Meds Home Medications and Allergies Home Medications Medication Instructions Recorded Confirmed Type ondansetron 4 mg disintegrating 4 mg PO Q6H PRN nausea and 11/21/23 Rx tablet vomiting #10 tabs vancomycin 125 mg capsule 125 mg PO QID 10 days #40 caps 11/21/23 Rx promethazine 25 mg tablet 25 mg PO Q6H PRN nausea and 11/22/23 Rx vomiting #20 tabs New Prescriptions to Start Prescriptions: promethazine Tuan Bradley Allergies Allergy/AdvReac Type Severity Reaction Status Date / Time dextromethorphan Allergy Unknown Verified 11/21/23 15:34 allergy reaction guaifenesin [From Robitussin] Allergy Verified 11/21/23 15:34 Results Labs 11/22/23 14:45 11/22/23 14:45 Labs: Abnormal lab results 11/22/23 Range/Units 14:45 Plt Count 479 H D (142-424) K/mm3 BUN 4 L D (7-17) mg/dl H & H 11/22/23 Range/Units 14:45 Hgb 15.4 (12.2-16.2) g/dL Hct 46.7 (37.0-47.0) % All other labs normal. Assessment and Plan *Assessment and plan (1) Vomiting: Status: Acute Category: Medical Code(s): R11.10 - Vomiting, unspecified (2) C. difficile diarrhea: Status: Acute Category: Medical Code(s): A04.72 - Enterocolitis due to Clostridium difficile, not specified as recurrent (3) Anxiety: Status: Acute Category: Medical Code(s): F41.9 - Anxiety disorder, unspecified Plan Ms. Jeter is a 23-year-old female who presents with approximately 5 days of nausea vomiting and diarrhea. 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 Labs unremarkable in the ER. White cell count normal at 9.2. Platelets 479. No neutrophil predominance or left shift with her white cell count. -Chemistry showing normal electrolytes with sodium 142, potassium 3.7, chloride 107. Kidney function normal with BUN 4, creatinine 0.6. Liver enzymes unremarkable. Albumin normal at 4.7. Labs actually look improved from yesterday. -No indication for inpatient management. Encourage patient to continue to take her vancomycin 125 mg 4 times a day for total of 10 days. -Recommend transitioning to Phenergan 25 mg every 6-8 hours for nausea. May benefit from having this scheduled for the next 2 to 3 days until she is consistently having decreased nausea. -Continue aggressive p.o. hydration. -Encourage patient to initiate fiber supplementation to help bulk watery stools. Thank for the opportunity to consult on this patient. Discussed case with ER physician, recommend discharge home with close follow-up with her PCP. No indication for inpatient management.
--- NOTE | 2023-11-22 15:22 | PC.NURSE ---
DR ORTIZ AT BEDSIDE TO EVALUATE PT
[2023-11-22 16:19] VITALS: BP 138/66; PULSE 94; RESP 18; TEMP 36.6; O2SAT 97
== END 2023-11-22 16:21 | disposition home or self-care (01) ==
PROVIDERS: Emergency Provider Emergency Medicine
DX: R11.10 Vomiting, unspecified (principal); F41.9 Anxiety disorder, unspecified; A04.72 Enterocolitis due to Clostridium difficile, not specified as recurrent; R19.7 Diarrhea, unspecified
CPT/HCPCS: 80053; 83735; 85025; 96361; 96374; 99284; J2405; J7120

== ENCOUNTER 2024-08-08 20:25 | Emergency (ER) | payer SELFPAY ==
[2024-08-08] VITALS (7 sets, daily range): BP systolic 120–161; BP diastolic 70–112; PULSE 98–144; RESP 16–22; TEMP 36.6–36.8; O2SAT 98–100; BMI 23.3
--- NOTE | 2024-08-08 20:30 | ED_ITS ---
Discharge Plan Disposition Patient Disposition: Home, Self-Care Condition: Good Prescriptions Prescriptions: New hydroxyzine HCl 25 mg tablet 25 mg PO Q8H PRN (Reason: itching) Qty: 30 0RF No Action vancomycin 125 mg capsule 125 mg PO QID 10 Days Qty: 40 0RF ondansetron 4 mg tablet,disintegrating 4 mg PO Q6H PRN (Reason: nausea and vomiting) Qty: 10 0RF promethazine 25 mg tablet 25 mg PO Q6H PRN (Reason: nausea and vomiting) Qty: 20 0RF Referrals Follow up/Referrals: Provider,Referral, MD [Primary Care Provider] - See instructions Activity Restrictions/Add. Instructions Additional Instructions/Restrictions: Take hydroxyzine as needed for anxiety. Follow-up with primary care doctor. Please return the emerged part with any new, concerning, worsening symptoms. Clinical Impressions Clinical Impression: Lightheadedness Stand Alone Forms Stand Alone Forms: Work/School Release Print Language Print Language: Colombian Discharge ED Provider: Nolberto Castañeda General Adult HPI General Chief complaint: Dizziness Stated complaint: dizzy, weak , Time Seen by Provider: 08/08/24 20:30 Mode of Arrival: Ambulatory Source of Information: Patient Limitations: No Limitations History of Present Illness HPI narrative: This is a otherwise healthy 24-year-old female who presents with concern for lightheadedness. States that she has had lightheadedness for the last several days and was recently seen at [facility] where they did an extensive workup including a CT head which was unremarkable, unremarkable urinalysis, and hematologic workup which revealed a magnesium that was low. Patient was initiated on that magnesium supplement however she states that her symptoms have persisted. States that she feels very anxious and has chronic anxiety but does not take any medications for it. Denies any chest pain, shortness of breath, headache, vision changes. States that she does not feel like the room is spinning around her and does not feel off balance but just feels like she is going to pass out. Has not had a syncopal episode Related Data Previous Rx's ?Medication ?Instructions ?Recorded ondansetron 4 mg disintegrating 4 mg PO Q6H PRN nausea and 11/21/23 tablet vomiting #10 tabs vancomycin 125 mg capsule 125 mg PO QID 10 days #40 caps 11/21/23 promethazine 25 mg tablet 25 mg PO Q6H PRN nausea and 11/22/23 vomiting #20 tabs hydroxyzine HCl 25 mg tablet 25 mg PO Q8H PRN itching #30 tabs 08/08/24 Allergies Allergy/AdvReac Type Severity Reaction Status Date / Time dextromethorphan Allergy Unknown Verified 11/21/23 15:34 allergy reaction guaifenesin (From Robitussin) Allergy Verified 11/21/23 15:34 PFSH PFS Disclaimer: The information contained in this section may have been updated after the patient was seen, as this information can be updated by other users. Social History (Updated 11/22/23 @ 16:07 by Scotty Stevens MD) Smoking Status: Current every day smoker alcohol intake: never current occupational status: employed Travel in the last 8 weeks: None household members: spouse Have you lived/traveled outside [place] in past 30 days?: No Contact w/someone who lives/traveled outside US past 30 days?: No Exposure to someone with infectious disease in past 14 days?: No Do you have a fever (greater than 100.4 F or 38 C)?: No Have you tested positive for COVID-19: No Exposed to someone with COVID-19 in past 14 days?: No Do you have a sore throat?: No Do you have a cough?: No Do you have any weakness?: Yes Do you have any diarrhea?: No Are you experiencing any unusual bleeding?: No Do you have any muscle aches/pain?: No Do you have any abdominal pain?: No Are you experiencing loss of taste or smell?: No ROS Obtained: Yes All systems reviewed & no additional complaints except as documented Physical Exam General General appearance: alert, in no apparent distress and anxious Eye Eye exam: Present normal appearance, PERRL and EOMI Respiratory Respiratory exam: Present normal lung sounds bilaterally; Absent respiratory distress Cardiovascular Cardiovascular exam: Present normal rhythm and tachycardia Abdominal Exam Abdominal exam: Present soft and distention; Absent tenderness, guarding or rebound Extremities Exam Extremities exam: Present normal inspection Neurological Exam Neurological exam: Present alert and oriented X3 Skin Skin exam: Present warm and dry Medical Decision Making Medical Records Medical records reviewed: Yes I reviewed the patient's medical records. Screening: Per USPSTF and CDC recommendations, given the prevalence of disease in our region, it is our hospital?s policy to screen for HIV and viral Hepatitis for all patients aged 18 and over and those with ongoing risk factors. [place] Inquiry Pt receiving controlled substance: No Vital Signs: 08/08/24 20:33 08/08/24 20:35 08/08/24 20:41 Temperature 98.3 F Temperature Source Oral Pulse Rate 144 H 121 H Pulse Rate [Left] 118 H Respiratory Rate 22 Blood Pressure 158/112 H 161/102 H Blood Pressure [Right Arm] 139/106 H Blood Pressure Mean [Right Arm] 117 Blood Pressure Source Blood Pressure Position 02 Sat by Pulse Oximetry 100 100 100 Oxygen Delivery Method Room Air 08/08/24 21:00 08/08/24 21:30 08/08/24 21:47 Temperature Temperature Source Pulse Rate 100 H 101 H 100 H Pulse Rate [Left] Respiratory Rate Blood Pressure 138/91 H 130/88 Blood Pressure [Right Arm] Blood Pressure Mean [Right Arm] Blood Pressure Source Blood Pressure Position 02 Sat by Pulse Oximetry 99 99 98 Oxygen Delivery Method 08/08/24 21:56 Temperature 97.9 F Temperature Source Oral Pulse Rate 98 H Pulse Rate [Left] Respiratory Rate 16 Blood Pressure 120/70 Blood Pressure [Right Arm] Blood Pressure Mean [Right Arm] Blood Pressure Source Automatic Cuff Blood Pressure Position Supine 02 Sat by Pulse Oximetry Oxygen Delivery Method Room Air Lab Data Lab Results 08/08/24 20:37: WBC 12.9 H, RBC 5.17, Hgb 14.7, Hct 43.2, MCV 83.6, MCH 28.4, MCHC 34.0, RDW 12.2, Plt Count 514 H, MPV 9.6, Neut % (Auto) 62.4, Lymph % (Auto) 29.9, [place] % (Auto) 6.4, Eos % (Auto) 0.6, Baso % (Auto) 0.4, Neut # (Auto) 8.0 H, Lymph # (Auto) 3.9, [place] # (Auto) 0.8, Eos # (Auto) 0.1, Baso # (Auto) 0.1, Sodium 139, Potassium 3.9, Chloride 103, Carbon Dioxide 28, Anion Gap 11.9, BUN 12, Creatinine 0.60, Estimated Creat Clear 114, Estimated GFR 125, Est GFR ( Amer) 151, Glucose 89, Calcium 9.8, Magnesium 1.9, Total Bilirubin 0.8, AST 47 H, ALT 20, Alkaline Phosphatase 106, Total Protein 8.8 H, Albumin 5.5 H, Globulin 3.3 H, Albumin/Globulin Ratio 1.7, Serum HCG, Qual Negative, HCV Ab MATTHEW w/Rflx PCR Qn Negative, HIV Ag/Ab Combo Qual Negative 08/08/24 20:37 08/08/24 20:37 Orders (Tests/Meds): ORDERS Category Date Time Status CBC w/Auto Diff [Complete Blood Count Auto Diff] Stat Lab 08/08/24 20:37 Completed CMP [Comprehensive Metabolic Panel] Stat Lab 08/08/24 20:37 Completed HCG Qualitative, Serum Stat Lab 08/08/24 20:37 Completed HIV Combo Stat Lab 08/08/24 20:37 Completed Hepatitis C Ab Qual. W/ RFX Stat Lab 08/08/24 20:37 Completed Magnesium Stat Lab 08/08/24 20:37 Completed ECG Data Tracing #1: I reviewed this ECG and interpreted as documented below: Rhythm at a rate of 89 with sinus arrhythmia, QTc 395, normal axis, no STEMI Medical Decision Narrative: In summary, this 24-year-old female presents to the emergency department today with lightheadedness. On initial evaluation patient is afebrile, hemodynamically stable, nontoxic-appearing, however appears very anxious. Differential diagnosis includes but is not limited to electrolyte abnormality, arrhythmia, , dehydration. Based on these concerns, I ordered CBC, CMP, test, EKG. Considered CT head, however this was done recently and unremarkable. Suspect that patient's symptoms are primarily related to her anxiety. Offered hydroxyzine however patient declined. She states that she would be willing to try to take some at home. ECG personally interpreted as noted above. Labs personally reviewed demonstrate normal magnesium, no other concerning electrolyte abnormalities, normal hemoglobin, negative test. On reassessment patient was in no acute distress and had improvement in heart rate. Appeared less anxious. Appropriate for discharge with PCP follow-up at this time. Provided hydroxyzine. Critical Care Critical Care Time Critical Care Time: No
--- NOTE | 2024-08-08 20:39 | ECG_ITS ---
APPROVED REPORT Exam: Resting ECG HR:89 bpm ECG Measurements Heart Rate 89 AXES OK 127 P 53 QRSd 89 QRS -54 QT 348 T 45 QTc 395 Conclusion SINUS RHYTHM WITH SINUS ARRHYTHMIA LOW QRS VOLTAGE IN PRECORDIAL LEADS [QRS DEFLECTION < 1.0 mV IN CHEST LEADS] PATTERN CONSISTENT WITH PULMONARY DISEASE LEFT ANTERIOR FASCICULAR BLOCK [QRS AXIS <= -45, QR IN I, RS IN II] ABNORMAL ECG Electronically signed by : HUONG PFEIFFER, 08/11/2024 23:40:10
[2024-08-08 21:01] LABS: Basophils # 0.1 K/mm3 (0-0.2); Basophils % 0.4 % (0.1-2.0); Eosinophils # 0.1 K/mm3 (0.0-0.4); Eosinophils % 0.6 % (0.1-12.0); Hematocrit 43.2 % (37.0-47.0); Hemoglobin 14.7 g/dL (12.2-16.2); Lymphocytes # 3.9 K/mm3 (0.7-4.5); Lymphocytes % 29.9 % (10-50); Mean Corpuscular Hemoglobin 28.4 pg (27.0-31.2); Mean Corpuscular Volume 83.6 fl (81-99); Mean Platelet Volume 9.6 fl (7.4-10.4); Monocytes # 0.8 K/mm3 (0.1-1.0); Monocytes % 6.4 % (1.7-9.3); Neutrophils % 62.4 % (37.0-80.0); Platelet Count 514 K/mm3 (142-424); Red Blood Count 5.17 M/mm3 (4.20-5.40); Red Cell Distribution Width 12.2 % (11.5-17.5); White Blood Count 12.9 K/mm3 (4.8-10.8)
[2024-08-08 21:07] LABS: Albumin Level 5.5 g/dl (3.5-5.0); Chloride 103 mmol/L (98-107); Potassium 3.9 mmoL/L (3.5-5.1); Sodium 139 mmol/L (136-145)
[2024-08-08 21:10] LABS: Alanine Aminotransferase 20 U/L (12-78); Albumin/Globulin Ratio 1.7 (1.1-1.8); Alkaline Phosphatase 106 U/L (38-126); Anion Gap 11.9 mEq/L (5-15); Aspartate Amino Transferase 47 U/L (14-36); Bilirubin,Total 0.8 mg/dl (0.2-1.3); Blood Urea Nitrogen 12 mg/dl (7-17); Carbon Dioxide 28 mmol/L (22.0-30.0); Creatinine Clearance Estimated 114 mL/min (50-200); Estimated Glomerular Filt Rate 125 ml/min (>60); GFR (African American) 151 ML/MIN (>60); Globulin 3.3 g/dL (1.3-3.2); Total Protein,Serum 8.8 g/dl (6.3-8.2)
[2024-08-08 21:11] LABS: Calcium 9.8 mg/dl (8.4-10.2); Glucose 89 mg/dl (74-100); Magnesium 1.9 mg/dl (1.6-2.3)
[2024-08-08 21:51] LABS: HIV Combo NEGATIVE (Negative)
[2024-08-08 21:52] LABS: HCG Qualitative, Serum Negative (Negative)
[2024-08-08 22:09] LABS: Hepatitis C Ab Qual. W/ RFX NEGATIVE (Negative)
== END 2024-08-08 22:03 | disposition home or self-care (01) ==
PROVIDERS: Emergency Provider Student in an Organized Health Care Education/Training Program
DX: R42 Dizziness and giddiness (principal)
CPT/HCPCS: 80053; 83735; 84703; 85025; 86803; 87389; 93005; 99283

== ENCOUNTER 2025-03-17 08:33 | Outpatient (CLI) | payer OTHER, SELFPAY ==
--- OUTSIDE RECORDS SUMMARY | 2025-03-16 16:24 | XMS_ITS | Continuity of Care Document ---
Author Organization [facility] Phone Care Team Providers Care Burlap Spreader Name Role Phone SOLE KELLY Primary Attending Unavailable SOLE KELLY Unavailable Unavailable SOLE KELLY Admitting Unavailable NO, FAMILY P Primary Care ALLERGIES AND ADVERSE REACTIONS ALLERGIES AND ADVERSE REACTIONS Code System Allergy Substance Adverse Reaction Date Reaction (Severity) Comment Status Reported By [place] By [id number] RXNorm Lexapro Adverse reaction to substance Not Specified active [id number] on March 16, 2025 5:43:24 PM UTC robitussin (Free Text Allergy) Adverse reaction to substance Not Specified active [id number] on March 16, 2025 5:43:24 PM UTC RESULTS Patient: GALILEA CABRERA Date of : 2000 7 LABORATORY RESULTS ORDER 100: HCG BETA QUANT (L OINC: 21924-6) ORDER DATE: March 16, 2025 5:40:00 PM UTC Specimen Source: Serum/Plasm a Specimen Type: Acellular blo od (serum or plasma) specimen PERFORMING LAB: [address] [id number] Result Comment: Final Result Date: March 16, 2025 6:16:00 PM UTC (TECH: LT) LOINC TEST FLAG [place] [address]-9 Choriogonadotrop in.beta subunit [Mass/volume] in Serum or Plasma H 226 mIU/mL 0 mIU/mL - 5 mIU/mL March 16, 2025 6:16:00 PM UTC (TECH: LT) ORDER 200: CBC AUTO W DIFF ( LOINC: 48754-4) ORDER DATE: March 16, 2025 5:40:00 PM UTC Specimen Source: Whole Blood Specimen Type: Whole blood s ample PERFORMING LAB: [address] [id number] Result Comment: Final Result Date: March 16, 2025 5:56:00 PM UTC (TECH: MRB) LOINC TEST FLAG RESULT REFERENCE RANGE UPDA LESA BY 6690-2 Leukocytes [#/volume] in Blood by Automated count H 11.7 10^3/uL 4.5 10^3/uL - 11.5 10^3/uL March 16, 2025 5:56:00 PM UTC (TECH: MRB) 789-8 Erythrocytes [#/volume] in Blood by Automated count N 5.03 10^6/uL 4.25 10^6/uL - 5.57 10^6/uL March 16, 2025 5:56:00 PM UTC (TECH: MRB) 718-7 Hemoglobin [Mass/volume] in Blood N 14.8 g/dL 12.0 g/dL - 15.7 g/dL March 16, 2025 5:56:00 PM UTC (TECH: MRB) 33240-0 Hematocrit [Volume Fraction] of Blood N 41.9 % 36.0 % - 47.0 % March 16, 2025 5:56:00 PM UTC (TECH: MRB) 787-2 Erythrocyte mean corpuscular volume [Entitic volume] by Automated count N 83.3 fl 80 fl - 95 fl March 16, 2025 5:56:00 PM UTC (TECH: MRB) 70183-3 Erythrocyte mean corpuscular hemoglobin [Entitic mass] in Blood from Fetus by Automated count N 29.4 pg 27.0 pg - 34.0 pg March 16, 2025 5:56:00 PM UTC (TECH: MRB) 50155-2 Erythrocyte mean corpuscular hemoglobin concentration [Mass/volume] in Blood from Fetus by Automated count N 35.3 g/dL 32.0 g/dL - 36.0 g/dL March 16, 2025 5:56:00 PM UTC (TECH: MRB) 88427-6 Platelets [#/volume] in Blood N 422 10^3/uL 150 10^3/uL - 450 10^3/uL March 16, 2025 5:56:00 PM UTC (TECH: MRB) 46454-5 Erythrocyte distribution width [Ratio] L 12.0 % 12.3 % - 15.1 % March 16, 2025 5:56:00 PM UTC (TECH: MRB) 25971-6 Platelet mean volume [Entitic volume] in Blood by Automated count N 9.0 fl 7.4 fl - 10.4 fl March 16, 2025 5:56:00 PM UTC (TECH: MRB) 84234-2 Granulocytes/100 leukocytes in Blood by Automated count N 71.6 % 40 % - 75 % March 16, 2025 5:56:00 PM UTC (TECH: MRB) 736-9 Lymphocytes/100 leukocytes in Blood by Automated count N 21.1 % 15 % - 57 % March 16, 2025 5:56:00 PM UTC (TECH: MRB) 5905-5 Monocytes/100 leukocytes in Blood by Automated count N 6.5 % 4.0 % - 12.0 % March 16, 2025 5:56:00 PM UTC (TECH: MRB) 713-8 Eosinophils/100 leukocytes in Blood by Automated count N 0.4 % 0.0 % - 4.0 % March 16, 2025 5:56:00 PM UTC (TECH: MRB) 706-2 Basophils/100 leukocytes in Blood by Automated count N 0.3 % 0.0 % - 1.0 % March 16, 2025 5:56:00 PM UTC (TECH: MRB) 57112-4 Immature granulocytes [#/volume] in Blood N 0.1 % 0.0 % - 0.8 % March 16, 2025 5:56:00 PM UTC (TECH: MRB) 49367-9 Granulocytes [#/volume] in Blood by Automated count N 8.33 10^3/uL March 16, 2025 5:56:00 PM UTC (TECH: MRB) 731-0 Lymphocytes [#/volume] in Blood by Automated count N 2.46 10^3/uL March 16, 2025 5:56:00 PM UTC (TECH: MRB) 742-7 Monocytes [#/volume] in Blood by Automated count N 0.76 10^3/uL March 16, 2025 5:56:00 PM UTC (TECH: MRB) 711-2 Eosinophils [#/volume] in Blood by Automated count N 0.05 10^3/uL March 16, 2025 5:56:00 PM UTC (TECH: MRB) 704-7 Basophils [#/volume] in Blood by Automated count N 0.04 10^3/uL March 16, 2025 5:56:00 PM UTC (TECH: MRB) 29488-4 Immature granulocytes [#/volume] in Blood N 0.01 10^3/uL March 16, 2025 5:56:00 PM UTC (TECH: MRB) 40032-4 Manual differential performed [Presence] in Blood N NO March 16, 2025 5:56:00 PM UTC (TECH: MRB) ORDER 300: COMP METABOLIC PA RODRICK (LOINC: 24522-9) ORDER DATE: March 16, 2025 5:40:00 PM UTC Specimen Source: Serum/Plasm a Specimen Type: Acellular blo od (serum or plasma) specimen PERFORMING LAB: [address] [id number] Result Comment: Final Result Date: March 16, 2025 6:16:00 PM UTC (TECH: LT) LOINC TEST FLAG RESULT REFERENCE RANGE UPDA LESA BY 2951-2 Sodium [Moles/volume ] in Serum or Plasma N 137 mmol/L 136 mmol/L - 145 mmol/L March 16, 2025 6:16:00 PM UTC (TECH: LT) 2823-3 Potassium [Moles/vol ume] in Serum or Plasma L 3.2 mmol/L 3.5 mmol/L - 5.1 mmol/L March 16, 2025 6:16:00 PM UTC (TECH: LT) 5-0 Chloride [Moles/volu me] in Serum or Plasma N 103 mmol/L 98 mmol/L - 107 mmol/L March 16, 2025 6:16:00 PM UTC (TECH: LT) 2027-9 Carbon dioxide, tota l [Moles/volume] in Serum or Plasma N 23 mmol/L 21 mmol/L - 32 mmol/L March 16, 2025 6:16:00 PM UTC (TECH: LT) 85097-8 Anion gap 3 in Serum or Plasma N 11.0 March 16, 2025 6:16:00 PM UTC (TECH: LT) 2345-7 Glucose [Mass/volume ] in Serum or Plasma H 118 mg/dL 70 mg/dL - 110 mg/dL March 16, 2025 6:16:00 PM [facility] (TECH: LT) 3094-0 Urea nitrogen [Mass/volume] in Serum or Plasma N 10 mg/dL 7 mg/dL - 18 mg/dL March 16 6:16:00 PM [place] (TECH: LT) 2160-0 Creatinine [Mass/vol ume] in Serum or Plasma L 0.5 mg/dL 0.6 mg/dL - 1.0 mg/dL March 16, 2025 6:16:00 PM [place] (TECH: LT) 3097-3 Urea nitrogen/Creati nine [Mass Ratio] in Serum or Plasma N 20.0 - March 16, 2025 6:16:00 PM [facility] (TECH: LT) 61310-0 Glomerular filtratio n rate/1.73 sq M.predicted by Creatinine-based formula (MDRD) N 136 mL/min >60 March 16, 2025 6:16:00 PM [facility] (TECH: LT) 02343-5 Osmolality of Serum or Plasma by calculated by sum of electrolytes N 285 mosm/kg 275 mosm/kg - 301 mosm/kg March 16, 2025 6:16:00 PM [facility] (TECH: LT) 2885-2 Protein [Mass/volume ] in Serum or Plasma H 8.4 g/dL 6.4 g/dL - 8.2 g/dL March 16, 2025 6:16:00 PM [facility] (TECH: LT) 1751-7 Albumin [Mass/volume ] in Serum or Plasma N 4.2 g/dL 3.4 g/dL - 5.0 g/dL March 16, 2025 6:16:00 PM [place] (TECH: LT) 30124-8 Calcium [Mass/volume ] in Serum or Plasma N 9.4 mg/dL 8.5 mg/dL - 10.1 mg/dL March 16, 2025 6:16:00 PM [facility] (TECH: LT) 83392-6 Calcium [Mass/volume ] corrected for total protein in Serum or Plasma N 9.2 mg/dL 8.5 mg/dL - 1 0.1 mg/dL March 16, 2025 6:16:00 PM [facility] (TECH: LT) 1975-2 Bilirubin.total [Mass/volume] in Serum or Plasma N 0.5 mg/dL 0.4 mg/dL - 1.5 mg/dL March 16, 2025 6:16:00 PM [facility] (TECH: LT) 1920-8 Aspartate aminotrans ferase [Enzymatic activity/volume] in Serum or Plasma N 16 U/L 15 U/L - 37 U/L March 16, 2025 6:16:00 PM [facility] (TECH: LT) 1742-6 Alanine aminotransfe rase [Enzymatic activity/volume] in Serum or Plasma N 15 U/L 12 U/L - 78 U/L March 16, 2025 6:16:00 PM [facility] (TECH: LT) 6768-6 Alkaline phosphatase [Enzymatic activity/volume] in Serum or Plasma N 108 U/L 50 U/L - 120 U/L March 16 6:16:00 PM [facility] (TECH: LT) LABORATORY NARRATIVE RESULTS Information is not available RADIOLOGY RESULTS Information is not available PATHOLOGY NARRATIVE RESULTS Information is not available MICROBIOLOGY RESULTS No Micro Labs/Results Exist for Patient BLOOD ADMIN RESULTS Information is not available MEDICATIONS HOME MEDICATIONS Status RXNORM NDC Medication Dose Route Frequency Dates Comments Reported By Updated By Patient not on Self-Medications [id number] on March 16, 2025 5:43:24 PM [facility] DISCHARGE MEDICATIONS Status RXNORM NDC Medication Dose Route Frequency Dates Dis pense Data Comments Physician Updated By No Discharge Medication Info rmation Available INPATIENT MEDICATIONS Status RXNORM NDC Medication Dose Route Frequency Rat e Quantity Dates Indication Dispense Data Comments Physician Updated By No Inpatient Medication Info rmation Available SOCIAL HISTORY SOCIAL HISTORY - Smoking Status SNOMED-CT Social History Element Description Effective Dates Offered Cessation Comment Updated By [id number] Current Tobacco smoking status Current Every Day Smoker [id number] on March 16, 2025 5:43:30 PM [facility] [id number] Historical Tobacco smoking status Unknown If Ever Smoked [id number] on June 10, 2024 7:44:25 PM [facility] [id number] Historical Tobacco smoking status Never Smoked [id number] on June 07, 2024 7:22:26 PM [facility] SOCIAL HISTORY - Gender Sex: Female SOCIAL HISTORY - Status : status i nformation is not available Intention in Next Year: intention information is not available SOCIAL HISTORY - Assessments Code System Description Status Date Value of Assessment Updated By Comment Assessment Information is no t available SOCIAL HISTORY - [place] Affiliation [place] information is not av ailable SOCIAL HISTORY - Legal Sex Legal Sex information is not available SOCIAL HISTORY - Sexual Behavior Sexual Orientation Gender Identity SNOMED-CT Description SNO MED -CT Description Activity Level No of Partners Partner Type UpdatedBy Information is not available SOCIAL HISTORY - Occupation Occupation information is no t available VITAL SIGNS PATIENT VITAL SIGNS This section displays the mo st recent value for each vital sign as of March 16, 2025 8:24:03 PM UTC Loinc Code Vital Sign Activity Date Result Updated By 8310-5 Body temperature March 16 7:22:00 PM UTC 97.7 [degF] 46607-1 Body weight Measured March 16, 2025 5:41:28 PM UTC 45.0 kg (99.0 lb) [id number] on March 16, 2025 5:41:28 PM UTC 8462-4 Diastolic blood pressure March 16, 2025 7:22:00 PM UTC 77.0 mm[Hg] 8867-4 Heart rate March 16, 2025 7:22:00 PM UTC 78 /min 69021-8 Oxygen saturation in Arterial blood by Pulse oximetry March 16, 2025 7:22:00 PM UTC 98.0 % 9279-1 Respiratory rate March 16 7:22:00 PM UTC 18 /min 8480-6 Systolic blood pressure March 16, 2025 7:22:00 PM UTC 113.0 mm[Hg] PEDIATRIC GROWTH CHART - VITAL SIGNS This section displays Head C ircumference Percentile, Weight for Length Percentile and BMI Percentile Loinc Code Pediatric Measure Age (Months) Result Updat ed By No Pediatric Growth Chart Pe rcentile Information Available. HEALTH CONCERNS Problems Concern Status Health Concern problem infor mation not available. Smoking Status Status Years Used Consumed packs p er day Health Concern smoking histo ry information not available. Family History Concern Status Health Concern family histor y information not available. ENCOUNTERS ENCOUNTER INFORMATION Reason for Visit VAGINAL BLEEDING Admission March 16, 2025 5:28:[address] [address] Discharge March 16, 2025 7:24:00 PM [facility] DISCHARGED TO HOME OR SELF CARE ENCOUNTER DIAGNOSES Notes information is not clemente ilable. Code System Diagnosis Onset Date Diagnosis information is not available. ABSTRACT DIAGNOSES Code System Diagnosis Updated By Abatement Date Abstract Diagnosis informati on is not available. CARE TEAM Care Burlap Spreader Role SOLE KELLY Primary Attending SOLE KELLY Referring SOLE KELLY Admitting FAMILY NO Primary Care CARE TEAM CARE sandwich peddler Role on Team Location Telecom Status Start Date End Nickolas e Updated By ROBIN RAMOS Referring normal March 16, 2025 6:47:01 PM UTC March 16, 2025 6:47:01 PM UTC [id number] on March 16, 2025 6:47:01 PM UTC ROBIN Soto MD, MD Referring normal March 16, 2025 6:47:01 PM UTC March 16, 2025 7:24:00 PM UTC [id number] on March 16, 2025 6:47:01 PM UTC ROBIN RAMOS Attending normal March 16, 2025 6:47:01 PM UTC March 16, 2025 6:47:01 PM UTC [id number] on March 16, 2025 6:47:01 PM UTC ROBIN Soto MD, MD Attending normal March 16, 2025 6:47:01 PM UTC March 16, 2025 7:24:00 PM UTC [id number] on March 16, 2025 6:47:01 PM UTC ROBIN RAMOS Admitting normal March 16, 2025 6:47:01 PM UTC March 16, 2025 6:47:01 PM UTC [id number] on March 16, 2025 6:47:01 PM UTC ROBIN Soto MD, MD Admitting normal March 16, 2025 6:47:01 PM UTC March 16, 2025 7:24:00 PM UTC [id number] on March 16, 2025 6:47:01 PM [facility] NO FAMILY PHYSICIAN PCP normal March 16, 2025 5:29:03 PM UTC March 16, 2025 7:24:00 PM UTC [id number] on March 16, 2025 6:47:01 PM UTC
== END 2025-03-17 23:59 | disposition home or self-care (01) ==
PROVIDERS: PCP Nurse Practitioner Family; Visit Provider Obstetrics & Gynecology
DX: Z34.90 Encounter for supervision of normal pregnancy, unspecified, unspecified trimester (principal); N92.6 Irregular menstruation, unspecified; Z3A.00 Weeks of gestation of pregnancy not specified
CPT/HCPCS: 36415; 84144; 84702

== ENCOUNTER 2025-03-19 08:36 | Outpatient (CLI) | payer OTHER, SELFPAY ==
--- OUTSIDE RECORDS SUMMARY | 2025-03-18 07:26 | XMS_ITS | Continuity of Care Document ---
Author Organization [facility] Phone Care Team Providers Care Relay Tester Name Role Phone SOLE KELLY Primary Attending Unavailable SOLE KELLY Unavailable Unavailable SOLE KELLY Admitting Unavailable NO, FAMILY P Primary Care ALLERGIES AND ADVERSE REACTIONS ALLERGIES AND ADVERSE REACTIONS Code System Allergy Substance Adverse Reaction Date Reaction (Severity) Comment Status Reported By [place] [id number] RXNorm Lexapro Adverse reaction to substance Not Specified active [id number] on March 16, 2025 5:43:24 PM UTC robitussin (Free Text Allergy) Adverse reaction to substance Not Specified active [id number] on March 16, 2025 5:43:24 PM UTC RESULTS Patient: GALILEA CABRERA Date of : 2000 7 LABORATORY RESULTS ORDER 100: HCG BETA QUANT (L OINC: [id number]) ORDER DATE: March 16, 2025 5:40:00 PM UTC Specimen Source: Serum/Plasm a Specimen Type: Acellular blo od (serum or plasma) specimen PERFORMING LAB: [address] [id number] Result Comment: Final Result Date: March 16, 2025 6:16:00 PM UTC (TECH: LT) LOINC TEST FLAG [place]ULT [place] [address]-7 Choriogonadotrop in.beta subunit [Mass/volume] in Serum or Plasma H 226 mIU/mL 0 mIU/mL - 5 mIU/mL March 16, 2025 6:16:00 PM UTC (TECH: LT) ORDER 200: CBC AUTO W DIFF ( LOINC: 93194-2) ORDER DATE: March 16, 2025 5:40:00 PM UTC Specimen Source: Whole Blood Specimen Type: Whole blood s ample PERFORMING LAB: [address] [id number] Result Comment: Final Result Date: March 16, [...] 16, 2025 5:56:00 PM UTC (TECH: MRB) 95191-4 Hematocrit [Volume Fraction] of Blood N 41.9 % 36.0 % - 47.0 % March 16, 2025 5:56:00 PM UTC (TECH: MRB) 787-2 Erythrocyte mean corpuscular volume [Entitic volume] by Automated count N 83.3 fl 80 fl - 95 fl March 16, 2025 5:56:00 PM UTC (TECH: MRB) 86823-9 Erythrocyte mean corpuscular hemoglobin [Entitic mass] in Blood from Fetus by Automated count N 29.4 pg 27.0 pg - 34.0 pg March 16, 2025 5:56:00 PM UTC (TECH: MRB) 44663-2 Erythrocyte mean corpuscular hemoglobin concentration [Mass/volume] in Blood from Fetus by Automated count N 35.3 g/dL 32.0 g/dL - 36.0 g/dL March 16, 2025 5:56:00 PM UTC (TECH: MRB) 93815-9 Platelets [#/volume] in Blood N 422 10^3/uL 150 10^3/uL - 450 10^3/uL March 16, 2025 5:56:00 PM UTC (TECH: MRB) 36299-0 Erythrocyte distribution width [Ratio] L 12.0 % 12.3 % - 15.1 % March 16, 2025 5:56:00 PM UTC (TECH: MRB) 99061-9 Platelet mean volume [Entitic volume] in Blood by Automated count N 9.0 fl 7.4 fl - 10.4 fl March 16, 2025 5:56:00 PM UTC (TECH: MRB) 41337-1 Granulocytes/100 leukocytes in Blood by Automated count [...] 16, 2025 5:56:00 PM UTC (TECH: MRB) 66886-8 Immature granulocytes [#/volume] in Blood N 0.1 % 0.0 % - 0.8 % March 16, 2025 5:56:00 PM UTC (TECH: MRB) 52902-5 Granulocytes [#/volume] in Blood by Automated count [...] 16, 2025 5:56:00 PM UTC (TECH: MRB) 03226-6 Immature granulocytes [#/volume] in Blood N 0.01 10^3/uL March 16, 2025 5:56:00 PM UTC (TECH: MRB) 16024-2 Manual differential performed [Presence] in Blood N NO March 16, 2025 5:56:00 PM UTC (TECH: MRB) ORDER 300: COMP METABOLIC PA RODRICK (LOINC: 46080-1) ORDER DATE: March 16, 2025 5:40:00 PM UTC Specimen Source: Serum/Plasm a Specimen Type: Acellular blo od (serum or plasma) specimen PERFORMING LAB: [address] [id number] Result Comment: Final Result Date: March 16, [...] 16, 2025 6:16:00 PM UTC (TECH: LT) 67597-8 Anion gap 3 in Serum or Plasma [...] 20.0 - March 16, 2025 6:16:00 PM [facility] (TECH: LT) 66101-0 Glomerular filtratio n rate/1.73 sq M.predicted by Creatinine-based formula (MDRD) N 136 mL/min >60 March 16, 2025 6:16:00 PM [place] (TECH: LT) 38391-5 Osmolality of Serum or Plasma by calculated [...] 16, 2025 6:16:00 PM [place] (TECH: LT) 50682-4 Calcium [Mass/volume ] in Serum or Plasma N 9.4 mg/dL 8.5 mg/dL - 10.1 mg/dL March 16, 2025 6:16:00 PM [facility] (TECH: LT) 40403-2 Calcium [Mass/volume ] corrected for total protein in Serum or Plasma N 9.2 mg/dL 8.5 mg/dL - 1 0.1 mg/dL March 16, 2025 6:16:00 PM [facility] (TECH: LT) 1975-2 Bilirubin.total [Mass/volume] in Serum or Plasma N 0.5 mg/dL 0.4 mg/dL - 1.5 mg/dL March 16, 2025 6:16:00 PM [facility] (TECH: LT) 1920-8 Aspartate aminotrans ferase [Enzymatic activity/volume] in Serum or Plasma N 16 U/L 15 U/L - 37 U/L March 16, 2025 6:16:00 PM [facility] (TECH: LT) 1742-6 Alanine aminotransfe rase [Enzymatic activity/volume] in Serum or Plasma N 15 U/L 12 U/L - 78 U/L March 16, 2025 6:16:00 PM [facility] (TECH: LT) 6768-6 Alkaline phosphatase [Enzymatic activity/volume] in Serum or Plasma N 108 U/L 50 U/L - 120 U/L March 16 6:16:00 PM [facility] (TECH: LT) LABORATORY NARRATIVE RESULTS Information is not available RADIOLOGY RESULTS Information is not available PATHOLOGY NARRATIVE RESULTS Information is not available MICROBIOLOGY RESULTS No Micro Labs/Results Exist for Patient BLOOD ADMIN RESULTS Information is not available MEDICATIONS HOME MEDICATIONS Status RXNORM NDC Medication Dose Route Frequency Dates Comments Reported By Updated By Patient not on Self-Medications [id number] on March 16, 2025 5:43:24 PM [facility] DISCHARGE MEDICATIONS Status RXNORM NDC Medication Dose [...] Effective Dates Offered Cessation Comment Updated By [id number] Current Tobacco smoking status Current Every Day Smoker [id number] on March 16, 2025 5:43:30 PM [facility] [id number] Historical Tobacco smoking status Unknown If Ever Smoked [id number] on June 10, 2024 7:44:25 PM [facility] [id number] Historical Tobacco smoking status Never Smoked [id number] on June 07, 2024 7:22:26 PM [facility] SOCIAL HISTORY - Gender Sex: Female SOCIAL HISTORY - Status : status i nformation is not available Intention in Next Year: intention information is not available SOCIAL HISTORY - Assessments Code System Description Status Date Value of Assessment Updated By Comment Assessment Information is no t available SOCIAL HISTORY - [place] Affiliation [place] information is not av ailable SOCIAL HISTORY [...] for each vital sign as of March 18, 2025 11:26:46 AM UTC Loinc Code Vital Sign Activity Date Result Updated By 8310-5 Body temperature March 16 7:22:31 PM UTC 97.7 [degF] 98062-2 Body weight Measured March 16, 2025 5:41:28 PM UTC 45.0 kg (99.0 lb) [id number] on March 16, 2025 5:41:28 PM UTC 8462-4 Diastolic blood pressure March 16, 2025 7:22:31 PM UTC 77.0 mm[Hg] 8867-4 Heart rate March 16, 2025 7:22:31 PM UTC 78 /min 45543-9 Oxygen saturation in Arterial blood by Pulse oximetry March 16, 2025 7:22:31 PM UTC 98.0 % 9279-1 Respiratory rate March 16 7:22:31 PM UTC 18 /min 8480-6 Systolic blood pressure March 16, 2025 7:22:31 PM UTC 113.0 mm[Hg] PEDIATRIC GROWTH CHART [...] BLEEDING Admission March 16, 2025 5:28:[address] [address] Discharge March 16, 2025 7:24:00 PM [facility] DISCHARGED TO HOME OR SELF CARE ENCOUNTER DIAGNOSES Notes information is not clemente ilable. Code System Diagnosis Onset Date Diagnosis information is not available. ABSTRACT DIAGNOSES Code System Diagnosis Updated By Abatement Date O20.9 ICD10 HEMORRHAGE IN EA RLY , UNSPECIFIED [id number] on March 18, 2025 11:26:19 AM [place] O20.9 ICD10 HEMORRHAGE IN EA RLY , UNSPECIFIED [id number] on March 18, 2025 11:26:19 AM [facility] Z32.01 ICD10 ENCOUNTER FOR SC EGNANCY TEST, RESULT POSITIVE [id number] on March 18, 2025 11:26:19 AM [facility] O99.331 ICD10 SMOKING (TOBACCO ) COMPLICATING , FIRST TRIMESTER [id number] on March 18, 2025 11:26:19 AM [facility] F17.290 ICD10 NICOTINE DEPENDE NCE, OTHER TOBACCO PRODUCT, UNCOMPLICATED [id number] on March 18, 2025 11:26:19 AM [facility] Z3A.01 ICD10 LESS THAN 8 WEEK S GESTATION OF [id number] on March 18, 2025 11:26:19 AM [facility] Z88.8 ICD10 ALLERGY STATUS T O OTHER DRUGS, MEDICAMENTS AND BIOLOGICAL SUBSTANCES [id number] on March 18, 2025 11:26:19 AM [facility] CARE TEAM Care Relay Tester Role SOLE KELLY Primary Attending SOLE KELLY Referring SOLE KELLY Admitting FAMILY NO Primary Care CARE TEAM CARE sustainability project coordinator Role on Team Location Telecom Status Start Date End Nickolas e Updated By ROBIN RAMOS Referring normal March 16, 2025 6:47:01 PM [facility] March 16, 2025 6:47:01 PM [facility] [id number] on March 16, 2025 6:47:01 PM [facility] ROBIN Soto MD, MD Referring normal March 16, 2025 6:47:01 PM [facility] March 16, 2025 7:24:00 PM [facility] [id number] on March 16, 2025 6:47:01 PM [facility] ROBIN RAMOS Attending normal March 16, 2025 6:47:01 PM [facility] March 16, 2025 6:47:01 PM [facility] [id number] on March 16, 2025 6:47:01 PM [facility] ROBIN Soto MD, MD Attending normal March 16, 2025 6:47:01 PM [facility] March 16, 2025 7:24:00 PM [facility] [id number] on March 16, 2025 6:47:01 PM [facility] ROBIN Soto MD PHY Admitting normal March 16, 2025 6:47:01 PM [place] March 16, 2025 6:47:01 PM [facility] [id number] on March 16, 2025 6:47:01 PM [facility] ROBIN Soto MD, MD Admitting normal March 16, 2025 6:47:01 PM [facility] March 16, 2025 7:24:00 PM [facility] [id number] on March 16, 2025 6:47:01 PM [facility] NO FAMILY PHYSICIAN PCP normal March 16, 2025 5:29:03 PM [facility] March 16, 2025 7:24:00 PM [facility] [id number] on March 16, 2025 6:47:01 PM [facility]
--- OUTSIDE RECORDS SUMMARY | 2025-03-19 07:01 | XMS_ITS | Continuity of Care Document ---
Author Organization [facility] [employer] Phone Care Team Providers Care Supervisor Doping Name Role Phone AARTI MCRAE Primary Attending AARTI MCRAE Admitting AARTI MCRAE Unavailable [phone] AARTI MCRAE Primary Care ALLERGIES AND ADVERSE REACTIONS ALLERGIES AND ADVERSE REACTIONS Code System Allergy Substance Adverse Reaction Date Reaction (Severity) Comment Status Reported By Updated By [id number] RXNorm Lexapro Adverse reaction to substance Not Specified active [id number] on March 16, 2025 5:43:24 PM [facility] robitussin (Free Text Allergy) Adverse reaction to substance Not Specified active [id number] on March 16, 2025 5:43:24 PM [facility] TREATMENT PLAN DISCHARGE MEDICATIONS Status RXNORM Medication Dose Route Frequency Dates Comments U pdated By Patient discharge medication information is not available. PATIENT OPEN ORDERS Code System Descripti on Frequency Occurrenc es Priority Category Start Date Ordering Physician Updated By 630-4 COLTON Bacteria identifie d in Urine by Culture ONE TIME 0 Routine March 18, 2025 3:56:00 PM [facility] CLEMENTINA Alarcon SHOT BLASTER [id number] on March 18, 2025 3:56:00 PM [facility] SCHEDULED PROCEDURES Code System Description Status Scheduled Date Upd ated By Patient scheduled procedure information is not available. MEDICATIONS HOME MEDICATIONS Status RXNORM NDC Medication Dose Route Frequency Dates Comments Reported By Updated By Drug Treatment Unknown DISCHARGE MEDICATIONS Status RXNORM NDC Medication Dose [...] Effective Dates Offered Cessation Comment Updated By [id number] Historical Tobacco smoking status Current Every Day Smoker [id number] on March 16, 2025 5:43:30 PM [facility] [id number] Historical Tobacco smoking status Unknown If Ever Smoked [id number] on June 10, 2024 7:44:25 PM [facility] [id number] Historical Tobacco smoking status Never Smoked [id number] on June 07, 2024 7:22:26 PM [facility] SOCIAL HISTORY - Gender Sex: Female SOCIAL HISTORY - Status : status i nformation is not available Intention in Next Year: intention information is not available SOCIAL HISTORY - Assessments Code System Description Status Date Value of Assessment Updated By Comment Assessment Information is no t available SOCIAL HISTORY - [place] Affiliation [place] information is not av ailable SOCIAL HISTORY - Legal Sex Legal Sex information is not available SOCIAL HISTORY - Sexual Behavior Sexual Orientation Gender Identity SNOMED-CT Description SNO MED -CT Description Activity Level No of Partners Partner Type UpdatedBy Information is not available SOCIAL HISTORY - Occupation Occupation information is no t available HEALTH CONCERNS Problems Concern Status Health Concern problem infor mation not available. Smoking Status Status Years Used Consumed packs p er day Health Concern smoking histo ry information not available. Family History Concern Status Health Concern family histor y information not available. ENCOUNTERS ENCOUNTER INFORMATION Reason for Visit N93.9 Admission March 18, 2025 3:55:[address] [id number] Discharge March 18, 2025 4:55:00 PM [facility] DISCHARGED TO HOME OR SELF CARE ENCOUNTER DIAGNOSES Notes information is not clemente ilable. Code System Diagnosis Onset Date Diagnosis information is not available. ABSTRACT DIAGNOSES Code System Diagnosis Updated By Abatement Date Abstract Diagnosis informati on is not available. CARE TEAM Care Supervisor Doping Role AARTI MCRAE Primary Attending AARTI MCRAE Admitting AARTI MCRAE Referring AARTI MCRAE Primary Care CARE TEAM CARE transportation manager Role on Team Location Telecom Status Start Date End Nickolas e Updated By CLEMENTINA MÉNDEZ PCP normal March 18, 2025 4:00:00 AM [facility] March 18, 2025 4:55:00 PM [facility] [id number] on March 19, 2025 10:43:44 AM [facility] CLEMENTINA MÉNDEZ Referring normal March 18, 2025 4:00:00 AM [place] March 18, 2025 4:55:00 PM [facility] [id number] on March 19, 2025 10:43:44 AM [facility] CLEMENTINA MÉNDEZ Attending normal March 18, 2025 4:00:00 AM [place] March 18, 2025 4:55:00 PM [facility] [id number] on March 19, 2025 10:43:44 AM [facility] CLEMENTINA MÉNDEZ Admitting normal March 18, 2025 4:00:00 AM [facility] March 18, 2025 4:55:00 PM [facility] [id number] on March 19, 2025 10:43:44 AM [facility] NO FAMILY PHYSICIAN PCP normal March 18, 2025 3:56:09 PM [facility] March 18, 2025 4:00:00 AM [facility] [id number] on March 19, 2025 10:43:44 AM [facility]
--- OUTSIDE RECORDS SUMMARY | 2025-03-19 08:47 | XMS_ITS | Clinical Summary ---
Author Organization Healthcare Address [address] [place] [address] Care Team Providers Care Wireworker Supervisor Name Role Phone JoãoBunnytomas Alarcon APRN Primary Care Provider + Encounters Date Type Department Care Team Description 03/17/2025 Telephone Obstetrics & Gynecology [address] [place] [address] Chiki Cardenas MD from Last 3 Months Family History Medical History Relation Name Comments Addiction problem Father Hypertension Mother Kidney failure Mother Hypertension Sibling Relation Name Status Comments Father Mother Sibling Social History Tobacco Use Types Packs/Day Years Used Date Smoking Tobacco: Passive Smo ke Exposure - Never Smoker Alcohol Use Standard Drinks/Week Comments Yes 0 (1 standard drink = 0.6 oz pure alcohol) Alcoholic Drinks/day: Occasional alcohol use Comments Unknown Sex and Gender Information Value Date Recorded Sex Assigned at Not on file Legal Sex Female 7:54 PM EDT Gender Identity Not on file Sexual Orientation Not on file Last Filed Vital Signs Vital Sign Reading Time Taken Comments Blood Pressure 128/78 01/26/2020 1:39 PM EDT Pulse 64 01/26/2020 1:39 PM EDT Temperature - - Respiratory Rate - - Oxygen Saturation - - Inhaled Oxygen Concentration - - Weight 60 kg (132 lb 4.4 oz) 01/26/2020 1:39 PM EDT Height 147.5 cm (4' 10.07 ) 01/26/2020 1:39 PM E DT Body Mass Index 27.58 01/26/2020 1:39 PM EDT Plan of Treatment Upcoming Encounters Date Type Department Care Team (Late st Contact Info) Description 04/05/2025 8:15 AM EST Initial Obstetrics & Gynecology [address] [facility] [address] Chiki Cardenas MD [address] [place] [address] Health Maintenance Due Date Last Done Comments [facility]-Depression Screening 2002 [facility]-HIV Screening 2002 [facility]-Hepatitis C Screening 2002 [facility]-Infant/Child/Adol SDOH Screenings 2002 [facility]- SDOH Screenings 2020 [facility]-Adult SDOH Screenings 2020 [facility]-Pap Smear 2023 [facility]-DTaP,Tdap,and Td Vaccines (7 - Td or Tdap) 10/19/2024 10/19/2014, 05/21/2006, 08/26/2003, Additional history exists [id number] Vaccine (1 - season) 2025 [facility]-Influenza Vaccine (#1) 2025 [facility]-Zoster Vaccines (1 of 2) 2052 05/21/2006, 05/31/2003 [facility]-HIB Vaccines Completed 05/31/2003, 11/2002, 2002 [facility]-Hepatitis B Vaccines Completed 003, 2002, 2002 [facility]-Pneumococcal Vaccine: Pediatrics (0 to 5 Years) and At-Risk Patients (6 to 49 Years) Aged Out 05/31/2003, 2002, 2002, Additional history exists No longer eligible based on patient's age to complete this topic [facility]-IPV Vaccines Completed 05/21/2006, , 2002, Additional history exists [facility]-Varicella Vaccines Completed 05/21/2006, 2002 HPV Vaccines Completed 08/11/2015, 01/01, 10/19/2014 [facility]-Hepatitis A Vaccines Completed 08/11/2015, 10/01 [facility]-Rotavirus Vaccines Aged Out No lo nger eligible based on patient's age to complete this topic Care Teams Wireworker Supervisor Relationship Specialty Start Date End Date Sarika Moyer, [employer] [address] [place], [place] [address] PCP - General 10/14/20
--- OUTSIDE RECORDS SUMMARY | 2025-03-19 08:48 | XMS_ITS | Encounter Summary ---
Author Organization Healthcare Address [address] [place] [address] Care Team Providers Care Jail Keeper Name Role Phone Sarika Moyer Dorian COLON Primary Care Provider + Encounter Details Date Type Department Care Team (Late st Contact Info) Description 03/17/2025 Telephone Obstetrics & Gynecology [address] [place] [address] Chiki Cardenas MD [address] [place] [address] Social History Tobacco Use Types Packs/Day Years [...] on file Sexual Orientation Not on file documented as of this encounter Miscellaneous Notes * Telephone Encounter - Meena Sweeney - 03/17/2025 11:49 AM EDT 03/17/25 scheduled apt per Gauri GRANTT documented in this encounter Plan of Treatment Upcoming Encounters Date Type Department Care Team (Late Contact Info) Description 04/05/2025 8:15 AM EST Initial Obstetrics & Gynecology [address] [place] [address] Chiki Cardenas MD [address] [place] [address] documented as of this encounter Visit Diagnoses Not on filedocumented in this encounter Care Teams Jail Keeper Relationship Specialty Start Date End Date Sarika Moyer APRN [address] [place] [address] PCP - General 10/14/20 documented as of this encounter
== END 2025-03-19 23:59 | disposition home or self-care (01) ==
LOC: LAB 08:37
PROVIDERS: PCP Nurse Practitioner Family; Visit Provider Obstetrics & Gynecology
DX: Z34.90 Encounter for supervision of normal pregnancy, unspecified, unspecified trimester (principal); N92.6 Irregular menstruation, unspecified; Z3A.00 Weeks of gestation of pregnancy not specified
CPT/HCPCS: 36415; 84702

== ENCOUNTER 2025-03-20 18:42 | Emergency (ER) | payer OTHER, SELFPAY ==
--- OUTSIDE RECORDS SUMMARY | 2025-03-20 18:56 | XMS_ITS | Encounter Summary ---
Author Organization Healthcare Address [address] [place] [address] Care Team Providers Care Metal Gauge Maker Name Role Phone Sarika Moyer Dorian COLON Primary Care Provider + Encounter Details Date Type Department Care Team (Late st Contact Info) Description 03/17/2025 Telephone Obstetrics & Gynecology [address] [place] [address] Chiki Cardenas MD [address] [place] [address] Social History Tobacco Use Types [...] AM EST Initial Obstetrics & Gynecology [address] [place] [address] Chiki Cardenas MD [address] [place] [address] documented as of this encounter Visit Diagnoses Not on filedocumented in this encounter Care Teams Metal Gauge Maker Relationship Specialty Start Date End Date Sarika Moyer APRN [address] [place] [address] PCP - General 10/14/20 documented as of this encounter
--- OUTSIDE RECORDS SUMMARY | 2025-03-20 18:56 | XMS_ITS | Clinical Summary ---
Author Organization Healthcare Address [address] [place] [address] Care Team Providers Care Global Human Resources Director Name Role Phone JoãoBunnytomas Alarcon APRN Primary Care Provider + Encounters Date Type Department Care Team Description 03/17/2025 Telephone Obstetrics & Gynecology [address] [place] [address] Chiki Cardenas MD from Last [...] AM EST Initial Obstetrics & Gynecology [address] [facility] [place] [address] Chiki Cardenas MD [address] [place] [address] Health Maintenance Due Date Last Done Comments [facility]-Depression Screening 2002 [facility]-HIV Screening 2002 [facility]-Hepatitis C Screening 2002 [facility]-Infant/Child/Adol SDOH Screenings 2002 [facility]- SDOH Screenings 2020 [facility]-Adult SDOH Screenings 2020 [facility]-Pap Smear 2023 [facility]-DTaP,Tdap,and Td Vaccines (7 - Td or Tdap) 10/19/2024 10/19/2014, 05/21/2006, 08/26/2003, Additional history exists [id number] Vaccine (1 - season) 2025 [facility]-Influenza Vaccine [...] age to complete this topic Care Teams Global Human Resources Director Relationship Specialty Start Date End Date Sarika Moyer, LOG GETTER [address] [place], [place] [address] PCP - General 10/14/20
[2025-03-20 19:00] VITALS: BP 151/95; PULSE 85; O2SAT 99
--- NOTE | 2025-03-20 19:01 | US_ITS ---
PROCEDURE INFORMATION: Exam: US , Transvaginal Exam date and time: 03/20/2025 7:35 PM Age: 24 years old Clinical indication: Lmp or gestational age (in weeks): 4-5 wks; Antepartum complications; Bleeding; ; Additional info: Approx. 4-5wks , vaginal bleeding TECHNIQUE: Imaging protocol: Real-time transvaginal obstetrical ultrasound of the maternal pelvis with image documentation. Transvaginal imaging was used for better evaluation of the fetus, adnexa, and/or cervix. COMPARISON: CT ABDOMEN PELVIS WO CON 11/21/2023 3:38 PM FINDINGS: Gestation: No intrauterine gestational sac is present. MATERNAL: Uterus: The uterus is anteverted and has a homogeneous parenchyma without masses. The endometrium is thickened and measures 1 cm. Right ovary/adnexa: Right ovary measures 1.8 x 3.3 x 2.5 cm. Involuting corpus luteum suggested in the right ovary. Normal vascularity. Left ovary/adnexa: Left ovary measures 2.3 x 1.3 x 1.7 cm. No masses. Normal vascularity. Intraperitoneal space: No free fluid. IMPRESSION: No evidence of a intrauterine gestation. Consider follow-up with beta HCG and ultrasound.
[2025-03-20 19:02] VITALS: BP 139/87; PULSE 82; RESP 22; TEMP 36.9; O2SAT 100; BMI 21.2
--- NOTE | 2025-03-20 19:03 | HMH.EDGENADL ---
Discharge Plan Disposition Patient Disposition: Home, Self-Care Prescriptions Prescriptions: New cephalexin 250 mg capsule 250 mg PO Q6H 7 Days Qty: 28 0RF No Action progesterone micronized [Prometrium] 200 mg capsule 200 mg vaginal HS Qty: 30 1RF Rx Instructions: insert vaginally every night at bedtime vancomycin 125 mg capsule 125 mg PO QID 10 Days Qty: 40 0RF ondansetron 4 mg tablet,disintegrating 4 mg PO Q6H PRN (Reason: nausea and vomiting) Qty: 10 0RF promethazine 25 mg tablet 25 mg PO Q6H PRN (Reason: nausea and vomiting) Qty: 20 0RF hydroxyzine HCl 25 mg tablet 25 mg PO Q8H PRN (Reason: itching) Qty: 30 0RF Referrals Follow up/Referrals: Sarika Moyer APRN [Primary Care Provider, Medical] - See instructions Activity Restrictions/Add. Instructions Additional Instructions/Restrictions: I encourage you to get blood work tomorrow as scheduled to continue to trend your quantitative hCG levels. I encourage you to follow-up with Dr. Clayton on Saturday to follow-up these results. This still could be international sales representative of an early miscarriage and I do want you to follow-up closely with Dr. Clayton. You are being prescribed a course of antibiotics for bacteria in your urine. Take this as prescribed. If you develop any new or worsening symptoms, or if you become concerned for your help for any reason, return to the emergency department for evaluation. Clinical Impressions Clinical Impression: Vaginal bleeding during , Asymptomatic bacteriuria during Instructions Patient Instructions: DI for Urinary Tract Infection (UTI), DI for Urinary Tract Infection in Children Print Language Print Language: Macedonian Discharge ED Provider: Andrea Lucio Adult HPI General Chief complaint: Urogenital-Female Stated complaint: 4-5 wks , bleeding,stressed Time Seen by Provider: 03/20/25 18:49 History of Present Illness HPI narrative: Ivon Jeter is a 24y female with a past medical history of anxiety, G1, P0 who presents to the emergency department for complaints of vaginal bleeding and anxiety and dizziness. Patient states that she is followed by Dr. Clayton with [facility] for her that she believes is 4 to 5 weeks along. She does report irregular periods but her last period was at the end of February. Beta-hCG on the was 276 and on the was 238. She states that they are concerned that her beta-hCG is not rising appropriately and may be evidence of pending miscarriage. She does report that today, she has been vomiting since 4 AM. She drank a Mountain Dew prior to arrival and got out of the car and felt dizzy and very anxious. She has noted vaginal spotting this morning and believes that she is passing tissue but is not sure if it is coming from her vagina or when she pees. Related Data Previous Rx's ?Medication ?Instructions ?Recorded ondansetron 4 mg disintegrating 4 mg PO Q6H PRN nausea and 11/21/23 tablet vomiting #10 tabs vancomycin 125 mg capsule 125 mg PO QID 10 days #40 caps 11/21/23 promethazine 25 mg tablet 25 mg PO Q6H PRN nausea and 11/22/23 vomiting #20 tabs hydroxyzine HCl 25 mg tablet 25 mg PO Q8H PRN itching #30 tabs 08/08/24 progesterone micronized 200 mg 200 mg vaginal HS #30 caps 03/18/25 capsule (Prometrium) cephalexin 250 mg capsule 250 mg PO Q6H 7 days #28 caps 03/20/25 Allergies Allergy/AdvReac Type Severity Reaction Status Date / Time dextromethorphan Allergy Unknown Verified 11/21/23 15:34 allergy reaction guaifenesin (From Robitussin) Allergy Verified 11/21/23 15:34 [facility] Disclaimer: The information contained in this section may have been updated after the patient was seen, as this information can be updated by other users. Social History (Updated 11/22/23 @ 16:07 by Scotty Stevens MD) Smoking Status: Current every day smoker alcohol intake: never current occupational status: employed Travel in the last 8 weeks?: None household members: spouse Have you lived/traveled outside US in past 30 days?: No Contact w/someone who lives/traveled outside US past 30 days?: No Exposure to someone with infectious disease in past 14 days?: No Do you have a fever (greater than 100.4 F or 38 C)?: No Have you tested positive for COVID-19?: No Exposed to someone with COVID-19 in past 14 days?: No Do you have a sore throat?: No Do you have a cough?: No Do you have any weakness?: No Do you have any diarrhea?: No Are you experiencing any unusual bleeding?: No Do you have any muscle aches/pain?: No Do you have any abdominal pain?: No Are you experiencing loss of taste or smell?: No ROS Obtained: Yes Systems reviewed as appropriate & no additional complaints except as documented Physical Exam General General appearance: alert, in no apparent distress and anxious Head Head exam: atraumatic Eye Eye exam: Present normal appearance ENT ENT exam: Present normal external ear exam Neck Neck exam: Present full ROM Chest Chest inspection: Present symmetric chest wall rise Respiratory Respiratory exam: Present normal lung sounds bilaterally; Absent respiratory distress, wheezes or stridor Cardiovascular Cardiovascular exam: Present regular rate and normal rhythm Abdominal Exam Abdominal exam: Present soft; Absent tenderness or guarding Extremities Exam Extremities exam: Present normal inspection Back Exam Back exam: Present normal inspection Neurological Exam Neurological exam: Present alert and oriented X3 Psychiatric Psychiatric exam: Present normal affect Skin Skin exam: Present warm and dry Medical Decision Making Medical Records Screening: Per USPSTF and CDC recommendations, given the prevalence of disease in our region, it is our hospital?s policy to screen for HIV and viral Hepatitis for all patients aged 18 and over and those with ongoing risk factors. Lucho Inquiry Pt receiving controlled substance: No Vital Signs: 03/20/25 19:00 03/20/25 19:02 03/20/25 19:14 Temperature 98.4 F Temperature Source Oral Pulse Rate 85 100 H Pulse Rate [Right] 82 Respiratory Rate 22 20 Blood Pressure 151/95 H 151/95 H Blood Pressure [Right Arm] 139/87 Blood Pressure Mean [Right Arm] 104 02 Sat by Pulse Oximetry 99 100 97 Oxygen Delivery Method Room Air 03/20/25 20:49 03/20/25 22:18 Temperature 98.6 F Temperature Source Oral Pulse Rate 81 82 Pulse Rate [Right] Respiratory Rate 16 16 Blood Pressure 125/79 126/21 L Blood Pressure [Right Arm] Blood Pressure Mean [Right Arm] 02 Sat by Pulse Oximetry 100 Oxygen Delivery Method Room Air Room Air Lab Data Lab Results 03/20/25 18:47: Urine Color Yellow, Urine Appearance Clear, Urine pH 6.5, Ur Specific [place] >= 1.030, Urine Protein 3+ A, Urine Glucose (UA) Negative, Urine Ketones 2+, Urine Blood 3+ A, Urine Nitrate Negative, Urine Bilirubin 2+ A, Urine Urobilinogen 1.0, Ur Leukocyte Esterase Negative, Urine RBC Tntc, Urine WBC 5-10, Ur Squamous Epith Cells 10-20, Urine Bacteria 3+ 03/20/25 20:30: WBC 12.5 H, RBC 4.63, Hgb 13.6, Hct 39.0, MCV 84.2, MCH 29.4, MCHC 34.9, RDW 12.2, Plt Count 475 H, MPV 9.2, Neut % (Auto) 75.3, Lymph % (Auto) 16.1, Bertie % (Auto) 8.0, Eos % (Auto) 0.0 L, Baso % (Auto) 0.4, Neut # (Auto) 9.4 H, Lymph # (Auto) 2.0, Bertie # (Auto) 1.0, Eos # (Auto) 0.0, Baso # (Auto) 0.1, Sodium 139, Potassium 3.4 L, Chloride 105, Carbon Dioxide 21 L, Anion Gap 16.4 H, BUN 11, Creatinine 0.50 L, Estimated Creat Clear 124, Estimated GFR 154, Est GFR ( Amer) 187, Glucose 108 H, Calcium 9.3, Total Bilirubin 0.7, AST 26, ALT 18, Alkaline Phosphatase 112, Total Protein 8.3 H, Albumin 4.8, Globulin 3.5 H, Albumin/Globulin Ratio 1.4, Lipase 47, HCG, Quant 370 H, Blood Type A Positive, Antibody Screen Negative 03/20/25 20:30 03/20/25 20:30 Orders (Tests/Meds): ORDERS Category Date Time Status Type and Screen Stat BBK 03/20/25 20:30 Completed Beta HCG, Quant [HCG,Quantitative] Stat Lab 03/20/25 20:30 Completed CBC w/Auto Diff [Complete Blood Count Auto Diff] Stat Lab 03/20/25 20:30 Completed CMP [Comprehensive Metabolic Panel] Stat Lab 03/20/25 20:30 Completed Lipase Stat Lab 03/20/25 20:30 Completed UA [Urinalysis and Microscopic] Stat Lab 03/20/25 18:47 Completed Urine Culture Stat Micro 03/20/25 18:47 Received US OB transvaginal Stat Ultrasound 03/20/25 19:01 Completed Medical Decision Narrative: Ivon Jeter is a 24y female with a past medical history of anxiety, G1, P0 who presents to the emergency department for complaints of vaginal bleeding and anxiety and dizziness. Patient states that she is followed by Dr. Clayton with [facility] for her that she believes is 4 to 5 weeks along. She does report irregular periods but her last period was at the end of February. Beta-hCG on the was 276 and on the was 238. She states that they are concerned that her beta-hCG is not rising appropriately and may be evidence of pending miscarriage. She does report that today, she has been vomiting since 4 AM. She drank a Mountain Dew prior to arrival and got out of the car and felt dizzy and very anxious. She has noted vaginal spotting this morning and believes that she is passing tissue but is not sure if it is coming from her vagina or when she pees. On arrival, patient is hemodynamically stable, in no acute respiratory distress, afebrile, breathing comfortably on room air. She is very anxious but is alert and answering questions appropriately. Cardiopulmonary exam is unremarkable. Abdomen is soft, nontender nondistended. Remainder for physical exam is grossly unremarkable. Differential diagnosis includes, but is not limited to: Threatened miscarriage, inevitable miscarriage, ectopic , urinary tract infection, among others. The most morbid conditions were considered and workup was based on these. Workup in the emergency department included: Quantitative beta-hCG, urinalysis, CMP, CBC with differential, lipase, type and screen transvaginal OB ultrasound Patient's laboratory workup showed mild leukocytosis of 12.5 without neutrophilia. No anemia. Platelets borderline elevated at 475. Mild hypokalemia at 3.4 and mild elevated anion gap of 16.4 but no ROSIO and electrolytes grossly nonactionable. Liver enzymes and bilirubin within normal limits. Quantitative beta-hCG is 370, which is increased from 276 from 03/19 and was 238 on 03/17, however this appears to be a slow elevation as it is only gone up approximately 130 points over 3 days. Patient's urinalysis shows 3+ protein, 3+ blood, 2+ bilirubin and 2+ ketones. Nitrate negative and leukocyte esterase negative, however there are too numerous to count red blood cells, 10-20 squamous epithelial cells and 5-10 white blood cells with 3+ bacteria. Given these findings in the setting of , I do feel patient would benefit from course of antibiotics and will prescribe Keflex. Transvaginal ultrasound was interpreted by me personally. There is no intrauterine gestational sac present. There is no free fluid in the intraperitoneal space. No other acute findings are noted. Given this, and patient's very slowly rising quantitative beta-hCG, I do fear the patient is actively undergoing a miscarriage, however this will require repeated follow-up of quantitative beta-hCG's and potentially additional ultrasound imaging. Patient notes that she has laboratory workup scheduled for tomorrow to have repeat beta-hCG testing and follow-up with her OB on Saturday. I encouraged her to have the lab work done and to attend her OB appointment to discuss this further. I did explain that I am concerned that this could represent a miscarriage but will require close follow-up as stated above. All questions were answered. She demonstrated understanding and was in agreement with this plan. She was then discharged from the emergency department in stable condition. Critical Care Critical Care Time Critical Care Time: No
[2025-03-20 19:14] VITALS: BP 151/95; PULSE 100; RESP 20; O2SAT 97
[2025-03-20 19:18] LABS: Microscopic, Urine URINE MICROSCOPIC (MICROSCOPIC)
[2025-03-20 19:30] LABS: Color,Urine YELLOW (Yellow); Glucose,Urine (UA) Negative (Negative); Ketones,Urine 2+ (Negative); Leukocyte Esterase,Urine Negative (Negative); PH,Urine 6.5 (5.0-8.5); Protein,Urine 3+ (Negative); Specific Gravity, Urine >= 1.030 (1.005-1.030); Urobilinogen,Urine 1.0 EU/dl (0.2)
[2025-03-20 19:40] LABS: Bilirubin,Urine 2+ (Negative)
[2025-03-20 19:53] LABS: Bacteria,Urine 3+ /lpf; RBC,Urine TNTC #/hpf (0-3)
[2025-03-20 20:49] VITALS: BP 125/79; PULSE 81; RESP 16; O2SAT 100
[2025-03-20 20:51] LABS: Hematocrit 39.0 % (37.0-47.0); Hemoglobin 13.6 g/dL (12.2-16.2); Immature Granulocytes % 0.2 %; Mean Corpuscular HGB Conc 34.9 g/dL (31.8-35.4); Mean Corpuscular Hemoglobin 29.4 pg (27.0-31.2); Mean Corpuscular Volume 84.2 fl (81-99); Nucleated Red Blood Cells % 0 %; Platelet Count 475 K/mm3 (142-424); Red Blood Count 4.63 M/mm3 (4.20-5.40); Red Cell Distribution Width-SD 36.9 fL; White Blood Count 12.5 K/mm3 (4.8-10.8)
[2025-03-20 20:58] LABS: Alanine Aminotransferase 18 U/L (12-78); Alkaline Phosphatase 112 U/L (38-126); Aspartate Amino Transferase 26 U/L (14-36); Bilirubin,Total 0.7 mg/dl (0.2-1.3); Blood Urea Nitrogen 11 mg/dl (7-17); Carbon Dioxide 21 mmol/L (22.0-30.0); Creatinine Clearance Estimated 124 mL/min (50-200); Creatinine,Serum 0.50 mg/dl (0.52-1.04); Estimated Glomerular Filt Rate 154 ml/min (>60); GFR (African American) 187 ML/MIN (>60); Lipase 47 U/L (23-300); Total Protein,Serum 8.3 g/dl (6.3-8.2)
[2025-03-20 20:59] LABS: Calcium 9.3 mg/dl (8.4-10.2); Glucose 108 mg/dl (74-100)
[2025-03-20 21:18] LABS: Potassium 3.4 mmoL/L (3.5-5.1)
[2025-03-20 21:19] LABS: Albumin Level 4.8 g/dl (3.5-5.0); Albumin/Globulin Ratio 1.4 (1.1-1.8); Anion Gap 16.4 mEq/L (5-15); Chloride 105 mmol/L (98-107); Globulin 3.5 g/dL (1.3-3.2); Sodium 139 mmol/L (136-145)
[2025-03-20 22:18] VITALS: BP 126/21; PULSE 82; RESP 16; TEMP 37; O2SAT 100
== END 2025-03-20 22:21 | disposition home or self-care (01) ==
PROVIDERS: Emergency Provider Student in an Organized Health Care Education/Training Program; PCP Nurse Practitioner Family
DX: O20.9 Hemorrhage in early pregnancy, unspecified (principal); O23.41 Unspecified infection of urinary tract in pregnancy, first trimester; R82.71 Bacteriuria; R11.2 Nausea with vomiting, unspecified; Z3A.08 8 weeks gestation of pregnancy
CPT/HCPCS: 36415; 76817; 80053; 81001; 83690; 84702; 85025; 86850; 87086; 99284

== ENCOUNTER 2025-03-21 12:18 | Outpatient (CLI) | payer OTHER, SELFPAY ==
--- OUTSIDE RECORDS SUMMARY | 2025-03-21 02:24 | XMS_ITS | Continuity of Care Document ---
Author Organization [facility] DecisionView Phone Care Team Providers Care Casting House Worker Name Role Phone AARTI MCRAE Primary Attending [phone] AARTI MCRAE Admitting [phone] AARTI MCRAE Unavailable [phone] AARTI MCRAE Primary Care ALLERGIES AND ADVERSE REACTIONS ALLERGIES AND ADVERSE REACTIONS Code System Allergy Substance Adverse Reaction Date Reaction (Severity) Comment Status Reported By Updated By [id number] RXNorm Lexapro Adverse reaction to substance Not Specified active [id number] on March 16, 2025 5:43:24 PM [place] robitussin (Free Text Allergy) Adverse reaction to substance Not Specified active [id number] on March 16, 2025 5:43:24 PM [facility] MEDICATIONS HOME MEDICATIONS Status RXNORM NDC Medication [...] Effective Dates Offered Cessation Comment Updated By [id number] Historical Tobacco smoking status Current Every Day Smoker [id number] on March 16, 2025 5:43:30 PM [facility] [id number] Historical Tobacco smoking status Unknown If Ever Smoked [id number] on June 10, 2024 7:44:25 PM [facility] [id number] Historical Tobacco smoking status Never Smoked [id number] on June 07, 2024 7:22:26 PM [facility] SOCIAL HISTORY - Gender Sex: Female SOCIAL HISTORY - Status : status i nformation is not available Intention in Next Year: intention information is not available SOCIAL HISTORY - Assessments Code System Description Status Date Value of Assessment Updated By Comment Assessment Information is no t available SOCIAL HISTORY - [place] Affiliation [place] information is not av ailable SOCIAL HISTORY [...] N93.9 Admission March 18, 2025 3:55:[address] [id number] Discharge March 18, 2025 4:55:00 PM [facility] DISCHARGED TO HOME OR SELF CARE ENCOUNTER DIAGNOSES Notes information is not clemente ilable. Code System Diagnosis Onset Date Diagnosis information is not available. ABSTRACT DIAGNOSES Code System Diagnosis Updated By Abatement Date N93.9 ICD10 ABNORMAL UTERINE AND VAGINAL BLEEDING, UNSPECIFIED [id number] on March 21, 2025 6:24:14 AM [facility] N93.9 ICD10 ABNORMAL UTERINE AND VAGINAL BLEEDING, UNSPECIFIED [id number] on March 21, 2025 6:24:15 AM [facility] CARE TEAM Care Casting House Worker Role AARTI MCRAE Primary Attending AARTI MCRAE Admitting AARTI MCRAE Referring AARTI MCRAE Primary Care CARE TEAM CARE floorwalker Role on Team Location Telecom Status Start Date End Nickolas e Updated By CLEMENTINA MÉNDEZ PCP normal March 18, 2025 4:00:00 AM [facility] March 18, 2025 4:55:00 PM [facility] [id number] on March 19, 2025 10:43:44 AM [facility] CLEMENTINA MÉNDEZ Referring normal March 18, 2025 4:00:00 AM [facility] March 18, 2025 4:55:00 PM [facility] [id number] on March 19, 2025 10:43:44 AM [facility] CLEMENTINA MÉNDEZ Attending normal March 18, 2025 4:00:00 AM [facility] March 18, 2025 4:55:00 PM [facility] [id number] on March 19, 2025 10:43:44 AM [facility] CLEMENTINA MÉNDEZ Admitting normal March 18, 2025 4:00:00 AM [facility] March 18, 2025 4:55:00 PM [facility] [id number] on March 19, 2025 10:43:44 AM [facility] NO FAMILY PHYSICIAN PCP normal March 18, 2025 3:56:09 PM [facility] March 18, 2025 4:00:00 AM [facility] [id number] on March 19, 2025 10:43:44 AM [facility]
--- OUTSIDE RECORDS SUMMARY | 2025-03-21 12:20 | XMS_ITS | Encounter Summary ---
Author Organization Healthcare Address [address] [place] [address] Care Team Providers Care Compounder Flavorings Name Role Phone Sarika Moyer Dorian COLON Primary Care Provider + Encounter Details Date Type Department Care Team (Late st Contact Info) Description 03/17/2025 Telephone Obstetrics & Gynecology [address] [place] [address] Chiki Cardenas MD [address] [place] [address] Social History Tobacco Use Types [...] AM EST Initial Obstetrics & Gynecology [address] [place] [address] Chiki Cardenas MD [address] [place] [address] documented as of this encounter Visit Diagnoses Not on filedocumented in this encounter Care Teams Compounder Flavorings Relationship Specialty Start Date End Date Sarika Moyer APRN [address] [place] [address] PCP - General 10/14/20 documented as of this encounter
--- OUTSIDE RECORDS SUMMARY | 2025-03-21 12:20 | XMS_ITS | Clinical Summary ---
Author Organization Healthcare Address [address] [place] [address] Care Team Providers Care Bullet Slug Casting Machine Operator Name Role Phone JoãoBunnytomas Alarcon APRN Primary Care Provider + Encounters Date Type Department Care Team Description 03/17/2025 Telephone Obstetrics & Gynecology [address] [place] [address] Chiki Cardenas MD from Last [...] AM EST Initial Obstetrics & Gynecology [address] [facility] [place] [address] Chiki Cardenas MD [address] [place] [address] Health Maintenance Due Date Last Done Comments [facility]-Depression Screening 2002 [facility]-HIV Screening 2002 [facility]-Hepatitis C Screening 2002 [facility]-Infant/Child/Adol SDOH Screenings 2002 [facility]- SDOH Screenings 2020 [facility]-Adult SDOH Screenings 2020 [facility]-Pap Smear 2023 [facility]-DTaP,Tdap,and Td Vaccines (7 - Td or Tdap) 10/19/2024 10/19/2014, 05/21/2006, 08/26/2003, Additional history exists [id number] Vaccine (1 - season) 2025 [facility]-Influenza Vaccine [...] age to complete this topic Care Teams Bullet Slug Casting Machine Operator Relationship Specialty Start Date End Date Sarika Moyer, ACTION INSTALLER [address] [place], [place] [address] PCP - General 10/14/20
== END 2025-03-21 23:59 | disposition home or self-care (01) ==
LOC: LAB 12:19
PROVIDERS: PCP Nurse Practitioner Family; Visit Provider Obstetrics & Gynecology
DX: Z34.90 Encounter for supervision of normal pregnancy, unspecified, unspecified trimester (principal); Z3A.00 Weeks of gestation of pregnancy not specified
CPT/HCPCS: 36415; 84702

== ENCOUNTER 2025-03-24 09:27 | Outpatient (CLI) | payer OTHER, SELFPAY ==
--- OUTSIDE RECORDS SUMMARY | 2025-03-24 09:33 | XMS_ITS | Clinical Summary ---
Author Organization Healthcare Address [address] [place] [address] Care Team Providers Care Paint Sprayer Sandblaster Name Role Phone JoãoBunnytomas Alarcon APRN Primary Care Provider + Encounters Date Type Department Care Team Description 03/17/2025 Telephone Obstetrics & Gynecology [address] [place] [address] Chiki Cardenas MD from Last [...] AM EST Initial Obstetrics & Gynecology [address] [place] [address] Chiki Cardenas MD [address] [place] [address] Health Maintenance Due Date Last Done Comments [facility]-Depression Screening 2002 [facility]-HIV Screening 2002 [facility]-Hepatitis C Screening 2002 [facility]-Infant/Child/Adol SDOH Screenings 2002 [facility]- SDOH Screenings 2020 [facility]-Adult SDOH Screenings 2020 [facility]-Pap Smear 2023 [facility]-DTaP,Tdap,and Td Vaccines (7 - Td or Tdap) 10/19/2024 10/19/2014, 05/21/2006, 08/26/2003, Additional history exists [id number] Vaccine (1 - season) 2025 [facility]-Influenza Vaccine [...] on patient's age to complete this topic Insurance [facility] MEDICAID Care Teams Paint Sprayer Sandblaster Relationship Specialty Start Date End Date Sarika Moyer APRN [address] [place] [address] PCP - General 10/14/20
--- OUTSIDE RECORDS SUMMARY | 2025-03-24 09:33 | XMS_ITS | Encounter Summary ---
Author Organization Healthcare Address [address] [place] [address] Care Team Providers Care Sales Consultant Name Role Phone Sarika Moyer Dorian COLON Primary Care Provider + Encounter Details Date Type Department Care Team (Late st Contact Info) Description 03/17/2025 Telephone Obstetrics & Gynecology [address] [place] [address] Chiki Cardenas MD [address] [place] [address] Social History Tobacco Use Types [...] AM EST Initial Obstetrics & Gynecology [address] [place] [address] Chiki Cardenas MD [address] [place] [address] documented as of this encounter Visit Diagnoses Not on filedocumented in this encounter Care Teams Sales Consultant Relationship Specialty Start Date End Date Sarika Moyer APRN [address] [place] [address] PCP - General 10/14/20 documented as of this encounter
== END 2025-03-24 23:59 | disposition home or self-care (01) ==
PROVIDERS: PCP Nurse Practitioner Family; Visit Provider Nurse Practitioner Obstetrics & Gynecology
DX: O46.90 Antepartum hemorrhage, unspecified, unspecified trimester (principal); Z3A.00 Weeks of gestation of pregnancy not specified
CPT/HCPCS: 36415; 84702

== ENCOUNTER 2025-03-25 17:49 | Emergency (ER) | payer OTHER, SELFPAY ==
--- NOTE | 2025-03-25 17:52 | ED_ITS ---
<Statement entered by Divina Dwyer DO - 03/27/25 00:28> I was consulted by the DOMINGA, and we discussed the complexity of problems being addressed. I approve the treatment and management plan for this patient's care in the emergency department, thus performing a substantial portion of the medical decision making. Divina Dwyer DO Discharge Plan Disposition Patient Disposition: Home, Self-Care Condition: Good Prescriptions Prescriptions: No Action progesterone micronized [Prometrium] 200 mg capsule 200 mg vaginal HS Qty: 30 1RF Rx Instructions: insert vaginally every night at bedtime vancomycin 125 mg capsule 125 mg PO QID 10 Days Qty: 40 0RF ondansetron 4 mg tablet,disintegrating 4 mg PO Q6H PRN (Reason: nausea and vomiting) Qty: 10 0RF promethazine 25 mg tablet 25 mg PO Q6H PRN (Reason: nausea and vomiting) Qty: 20 0RF hydroxyzine HCl 25 mg tablet 25 mg PO Q8H PRN (Reason: itching) Qty: 30 0RF cephalexin 250 mg capsule 250 mg PO Q6H 7 Days Qty: 28 0RF Referrals Follow up/Referrals: Sarika Moyer APRN [Primary Care Provider, Medical] - See instructions Marlin Lee DO [Staff Physician, AS[facility] ASSOCIATE] - See instructions Referral Note: Please follow-up with Dr. Lee tomorrow in the [facility] clinic at 2 PM Activity Restrictions/Add. Instructions Additional Instructions/Restrictions: Please return to the emergency department with any worsening signs or symptoms. Any bleeding that soaks through more than pad in 1 hour, any lightheadedness, worsening abdominal pain, nausea or vomiting. Please keep your appointment with AS[facility] ASSOCIATE tomorrow in the office at 2 PM Clinical Impressions Clinical Impression: Vaginal bleeding during , Ectopic Instructions Patient Instructions: DI for Ectopic Print Language Print Language: Georgian Discharge ED Provider: Divina Dwyer General Adult HPI General Chief complaint: OB/Uterine Contractions Stated complaint: bleeding and pain, preg. Time Seen by Provider: 03/25/25 17:50 Mode of Arrival: Ambulatory Source of Information: Patient, Significant Other and Medical Record Limitations: No Limitations History of Present Illness HPI narrative: 24-year-old female G1, , unknown gestation LMP sometime in the middle of January, patient states that she has irregular periods . Presents to the emergency department with a 5 to 6-day history of waxing and waning abdominal cramping and vaginal bleeding, patient was seen in the emergency department for similar symptomatology on 03/20/2025, had negative transvaginal ultrasound, hCG corresponded with early , patient has had continued vaginal bleeding and once again waxing and waning abdominal pain, now just spotting , that she describes as light pink in color. Patient has any fever chills chest pain shortness of breath, no nausea no vomiting no constipation no diarrhea no urinary type symptomatology, patient does not have ASSEMBLY ASSOCIATE consultation into the next 5 days, she is taking her vitamins at home as prescribed, no other relevant past medical history takes no medications at home. Patient states that she is very worried about ectopic , after googling it . Initial triage vitals are unremarkable, patient is current everyday smoker (vapes), denies any alcohol or drug use. Also of note, hCG on 1018 was 370, 1019 was 342, and 1022 at 701, patient also had some concern for asymptomatic bacteria at last emergency department visit. Please note that above description of symptoms, in this electronic medical record under categorization of recalled from ER triage doctor by RN are reflective of an initial nursing assessment, however, is not reflective of my full history and physical exam that was personally taken and clarified. Consequentially, this preceding description of symptoms, which may include the patient's categorized chief complaint in the EMR, do not reflect my personal clinical impression, and the ultimate description of history of present illness and patient stated complaints should be deferred to this section of the note. Unless stated otherwise or congruent with this section of the note, additional signs, symptoms, or incongruence should be interpreted as inaccurate with my clinical impression. Onset (ago): day(s) Related Data Previous Rx's ?Medication ?Instructions ?Recorded ondansetron 4 mg disintegrating 4 mg PO Q6H PRN nausea and 11/21/23 tablet vomiting #10 tabs vancomycin 125 mg capsule 125 mg PO QID 10 days #40 ca ps 11/21/23 promethazine 25 mg tablet 25 mg PO Q6H PRN nausea and 11/22/23 vomiting #20 tabs hydroxyzine HCl 25 mg tablet 25 mg PO Q8H PRN itching #30 tabs 08/08/24 progesterone micronized 200 mg 200 mg vaginal HS #30 c aps 10/16/25 capsule (Prometrium) cephalexin 250 mg capsule 250 mg PO Q6H 7 days #28 cap s 03/20/25 Allergies Allergy/AdvReac Type Severity Reaction Status Date / Time dextromethorphan Allergy Unknown Verified 11/21/23 15:34 allergy reaction guaifenesin (From Robitussin) Allergy Verified 11/21/23 15:34 [facility] Disclaimer: The information contained in this section may have been updated after the patient was seen, as this information can be updated by other users. Social History (Updated 11/22/23 @ 16:07 by Scotty Stevens MD) Smoking Status: Current every day smoker alcohol intake: never current occupational status: employed Travel in the last 8 weeks?: None household members: spouse Have you lived/traveled outside US in past 30 days?: No Contact w/someone who lives/traveled outside US past 30 days?: No Exposure to someone with infectious disease in past 14 days?: No Do you have a fever (greater than 100.4 F or 38 C)?: No Have you tested positive for COVID-19?: No Exposed to someone with COVID-19 in past 14 days?: No Do you have a sore throat?: No Do you have a cough?: No Do you have any weakness?: No Do you have any diarrhea?: No Are you experiencing any unusual bleeding?: Yes Do you have any muscle aches/pain?: No Do you have any abdominal pain?: Yes Are you experiencing loss of taste or smell?: No ROS Obtained: Yes All systems reviewed & no additional complaints except as documented Physical Exam General General appearance: alert and in no apparent distress Head Head exam: atraumatic and normocephalic Eye Eye exam: Present PERRL and EOMI ENT ENT exam: Present mucous membranes moist Neck Neck exam: Present normal inspection Chest Chest inspection: Present normal inspection and symmetric chest wall rise Respiratory Respiratory exam: Present normal lung sounds bilaterally; Absent respiratory distress Cardiovascular Cardiovascular exam: Present regular rate and normal rhythm Abdominal Exam Abdominal exam: Present soft; Absent tenderness, guarding or rebound Extremities Exam Extremities exam: Present normal inspection Neurological Exam Neurological exam: Present alert and oriented X3 Psychiatric Psychiatric exam: Present normal affect Skin Skin exam: Present warm and dry Medical Decision Making Medical Records Medical records reviewed: Yes I reviewed the patient's medical records. Screening: Per USPSTF and CDC recommendations, given the prevalence of disease in our region, it is our hospital?s policy to screen for HIV and viral Hepatitis for all patients aged 18 and over and those with ongoing risk factors. Lucho Inquiry Pt receiving controlled substance: No Lucho was queried for this patient: No Vital Signs: 03/25/25 18:00 03/25/25 19:31 Temperature 97.9 F Temperature Source Oral Pulse Rate 92 H Pulse Rate [Radial] 94 H Respiratory Rate 18 Blood Pressure 123/80 Blood Pressure [Right Arm] 149/90 H Blood Pressure Mean [Right Arm] 109 Blood Pressure Source [Right Arm] Automatic Cuff Blood Pressure Position [Right Arm] Sitting 02 Sat by Pulse Oximetry 100 98 Oxygen Delivery Method Room Air Lab Data Lab results reviewed: Yes I reviewed the patient's lab results. Lab Results 03/25/25 17:56: Urine Color Yellow, Urine Appearance Slightly cloudy, Urine pH 6.5, Ur Specific Conway 1.020, Urine Protein 1+ A, Urine Glucose (UA) Negative, Urine Ketones 1+, Urine Blood 3+ A, Urine Nitrate Negative, Urine Bilirubin Negative, Urine Urobilinogen 1.0, Ur Leukocyte Esterase Negative, Urine RBC Tntc, Urine WBC 20-50, Ur Squamous Epith Cells 5-10, Urine Bacteria 4+, Urine Mucus 2+ 03/25/25 18:08: WBC 9.7, RBC 4.98, Hgb 14.6, Hct 41.7, MCV 83.7, MCH 29.3, MCHC 35.0, RDW 12.2, Plt Count 516 H, MPV 9.5, Neut % (Auto) 60.1, Lymph % (Auto) 32.3, Andrew % (Auto) 6.5, Eos % (Auto) 0.7, Baso % (Auto) 0.3, Neut # (Auto) 5.9, Lymph # (Auto) 3.1, Andrew # (Auto) 0.6, Eos # (Auto) 0.1, Baso # (Auto) 0.0, PT 11.9, INR 1.08, Sodium 137, Potassium 3.5, Chloride 101, Carbon Dioxide 26, Anion Gap 13.5, BUN 6 L, Creatinine 0.50 L, Estimated GFR 154, Est GFR ( Amer) 187, Glucose 95, Calcium 9.5, Total Bilirubin 1.1, AST 33, ALT 14, Alkaline Phosphatase 98, Total Protein 9.0 H, Albumin 4.9, Globulin 4.1 H, Albumin/Globulin Ratio 1.2, Lipase 120, HCG, Quant 568 H 03/25/25 18:20: Blood Type A Positive 03/25/25 18:08 03/25/25 18:08 Orders (Tests/Meds): ED MEDICATIONS Discontinued Medications Generic Name Dose Route Start Last Admin Trade Name Tasia PRN Reason Stop Dose Admin Methotrexate 70 mg 03/25/25 21:15 03/25/25 21:40 Methotrexate Sodium 50mg/2ml Vial IM 03/25/25 21:16 70 mg ONCE ONE Administration ORDERS Category Date Time Status ABO/RH Type Stat BBK 03/25/25 18:20 Completed Complete Blood Count Auto Diff Stat Lab 03/25/25 18:08 Completed Comprehensive Metabolic Panel Stat Lab 03/25/25 18:08 Completed HCG,Quantitative Stat Lab 03/25/25 18:08 Completed Lipase Stat Lab 03/25/25 18:08 Completed PT INR [Prothrombin Time INR] Stat Lab 03/25/25 18:08 Completed Urinalysis and Microscopic Stat Lab 03/25/25 17:56 Completed Urine Culture Stat Micro 03/25/25 17:56 Received US OB transvaginal Stat Ultrasound 03/25/25 18:00 Completed Medical Decision Narrative: 24-year-old female presents the emergency department with vaginal bleeding and abdominal cramping for several days, differential diagnose include but not limited to, ectopic , spontaneous , molar , acute UTI, subchronic hematoma, implantation of bleeding, gestational trophoblastic disease among others. I discussed this patient's case with attending physician Dr. Dwyer Will obtain basic laboratory studies, hCG quant, lipase level, coag levels, urinalysis, ABO Rh, transvaginal ultrasound. 3+ hematuria noted on UA, 1+ proteinuria, 1+ ketonuria, negative nitrites negative leukocyte esterase. Microscopic analysis of the patient's urine too numerous to count RBCs 20-50 WBCs, 5-10 squamous epithelial cells, 4+ urine bacteria 2+ urine mucus. CBC is notable for thrombocytosis 516 CMP is unremarkable Coags within normal limits Patient's blood type is a positive hCG is 568, which is decreased I reviewed the patient's transvaginal ultrasound along with corresponding radiologic report, no gestational sac identified within the uterus, a structure at the right adnexa with low level flow on color Doppler ultrasound findings may represent loop of fallopian tube versus also ectopic recommend close ultrasound laboratory follow-up. I discussed this patient's case with the on-call ASSEMBLY ASSOCIATE Dr. eLe at approximately 8:25 PM, she recommends follow-up in the a.m., if patient is hemodynamically stable and not in acute abdomen, would recommend giving methotrexate. I along with the attending physician saw and examined the patient at approximately 8:35 PM, patient is remained stable throughout her time in the emergency department, nonsurgical abdomen, upon my examination and attending physicians examination. Patient is in agreement with the current treatment plan with methotrexate p.o. here in the emergency department and discharged with close [facility] ASSOCIATE follow-up tomorrow. Closed-loop communication was discussed with ASSEMBLY ASSOCIATE physician on-call Dr. Lee at approximately 8:45 PM, after reexamination of the patient, discussed these findings with her, she we will have the patient follow-up in the [facility] ASSOC[facility] clinic tomorrow at 2 PM. Methotrexate given for hospital pharmacist Observation after methotrexate was performed, patient tolerated procedure well hemodynamically stable no acute signs or symptoms, no pain upon discharge patient was given bleeding precautions and very strict ED return precautions. Patient to follow-up with ASSEMBLY ASSOCIATE tomorrow in clinic at 2 PM. Patient and family voiced understanding and agreed with the current treatment plan/discharge plan. Critical Care Critical Care Time Critical Care Time: No
--- OUTSIDE RECORDS SUMMARY | 2025-03-25 17:56 | XMS_ITS | Encounter Summary ---
Author Organization Healthcare Address [address] [place] [address] Care Team Providers Care Machine Operator Farmworker Name Role Phone Sarika Moyer Dorian COLON Primary Care Provider + Encounter Details Date Type Department Care Team (Late st Contact Info) Description 03/17/2025 Telephone Obstetrics & Gynecology [address] [place] [address] Chiki Cardenas MD [address] [place] [address] Social History Tobacco Use Types [...] AM EST Initial Obstetrics & Gynecology [address] [place] [address] Chiki Cardenas MD [address] [place] [address] documented as of this encounter Visit Diagnoses Not on filedocumented in this encounter Care Teams Machine Operator Farmworker Relationship Specialty Start Date End Date Sarika Moyer APRN [address] [place] [address] PCP - General 10/14/20 documented as of this encounter
--- OUTSIDE RECORDS SUMMARY | 2025-03-25 17:56 | XMS_ITS | Clinical Summary ---
Author Organization Healthcare Address [address] [place] [address] Care Team Providers Care Electric Razor Assembler Name Role Phone JoãoBunnytomas Alarcon APRN Primary Care Provider + Encounters Date Type Department Care Team Description 03/17/2025 Telephone Obstetrics & Gynecology [address] [place] [address] Chiki Cardenas MD from Last [...] AM EST Initial Obstetrics & Gynecology [address] [place] [address] Chiki Cardenas MD [address] [place] [address] Health Maintenance Due Date Last Done Comments [facility]-Depression Screening 2002 [facility]-HIV Screening 2002 [facility]-Hepatitis C Screening 2002 [facility]-Infant/Child/Adol SDOH Screenings 2002 [facility]- SDOH Screenings 2020 [facility]-Adult SDOH Screenings 2020 [facility]-Pap Smear 2023 [facility]-DTaP,Tdap,and Td Vaccines (7 - Td or Tdap) 10/19/2024 10/19/2014, 05/21/2006, 08/26/2003, Additional history exists [id number] Vaccine (1 - season) 2025 [facility]-Influenza Vaccine [...] patient's age to complete this topic Insurance [facility] MEDICAID Care Teams Electric Razor Assembler Relationship Specialty Start Date End Date Sarika Moyre APRN [address] [address] PCP - General 10/14/20
[2025-03-25 18:00] VITALS: BP 149/90; PULSE 94; RESP 18; TEMP 36.6; O2SAT 100; BMI 20.9
--- NOTE | 2025-03-25 18:00 | US_ITS ---
PROCEDURE INFORMATION: Exam: US , Transvaginal and US Duplex Artery and Vein, Ovaries, Complete Exam date and time: 03/25/2025 6:17 PM Age: 24 years old Clinical indication: complicated by abdominal or pelvic pain; Right lower quadrant; First trimester (<14 weeks 0 days); Gestational age or lmp: 6w3d; ; [facility] 238 03/24 700 03/25--568; Additional info: Vaginal bleeding, rule out ectopic TECHNIQUE: Imaging protocol: Real-time transvaginal obstetrical ultrasound of the maternal pelvis and a first trimester with image documentation. Transvaginal imaging was used for better evaluation of the fetus, adnexa, and/or cervix. Real-time duplex ultrasound scan of the arterial and venous flow of the ovaries with B-mode, color Doppler flow and spectral waveform analysis, Complete Duplex. Duplex exam was performed to evaluate for torsion and other vascular conditions. COMPARISON: US OB TRANSVAGINAL 03/20/2025 7:35 PM FINDINGS: GESTATION: Gestation: No gestational sac identified within the uterus. heart rate: Placenta: Unremarkable. No subchorionic bleed. Amniotic fluid (Qualitative): Amniotic fluid is normal for gestational age. MATERNAL: Right ovary/adnexa: The right ovary has normal color Doppler echoes. The right ovary has normal arterial and venous spectral waveforms. Structure at the right adnexa with low-level flow on color Doppler ultrasound. Left ovary/adnexa: The left ovary has normal color Doppler echoes. The left ovary has normal arterial and venous spectral waveforms. Intraperitoneal space: No intraperitoneal free fluid. IMPRESSION: No gestational sac identified within the uterus. Structure at the right adnexa with low-level flow on color Doppler ultrasound. Findings may represent loop of fallopian tube versus also ectopic . Recommend close clinical, ultrasound, and laboratory follow-up. THIS REPORT CONTAINS FINDINGS THAT MAY BE CRITICAL TO PATIENT CARE. The findings were verbally communicated via telephone conference with Angel Butler at 8:22 PM EDT on 03/25/2025. The findings were acknowledged and understood.
[2025-03-25 18:05] LABS: Microscopic, Urine URINE MICROSCOPIC (MICROSCOPIC)
[2025-03-25 18:07] LABS: Bilirubin,Urine Negative (Negative); Color,Urine YELLOW (Yellow); Glucose,Urine (UA) Negative (Negative); Ketones,Urine 1+ (Negative); Leukocyte Esterase,Urine Negative (Negative); PH,Urine 6.5 (5.0-8.5); Protein,Urine 1+ (Negative); Specific Gravity, Urine 1.020 (1.005-1.030); Urobilinogen,Urine 1.0 EU/dl (0.2)
[2025-03-25 18:32] LABS: Bacteria,Urine 4+ /lpf; Mucus,Urine 2+ /lpf; RBC,Urine TNTC #/hpf (0-3); WBC,Urine 20-50 #/hpf (0-3)
[2025-03-25 18:39] LABS: Hematocrit 41.7 % (37.0-47.0); Hemoglobin 14.6 g/dL (12.2-16.2); Immature Granulocytes % 0.1 %; Mean Corpuscular HGB Conc 35.0 g/dL (31.8-35.4); Mean Corpuscular Hemoglobin 29.3 pg (27.0-31.2); Mean Corpuscular Volume 83.7 fl (81-99); Nucleated Red Blood Cells % 0 %; Platelet Count 516 K/mm3 (142-424); Red Blood Count 4.98 M/mm3 (4.20-5.40); Red Cell Distribution Width-SD 37.1 fL; White Blood Count 9.7 K/mm3 (4.8-10.8)
[2025-03-25 18:40] LABS: Albumin Level 4.9 g/dl (3.5-5.0); Chloride 101 mmol/L (98-107); Potassium 3.5 mmoL/L (3.5-5.1); Sodium 137 mmol/L (136-145)
[2025-03-25 18:43] LABS: Alanine Aminotransferase 14 U/L (12-78); Albumin/Globulin Ratio 1.2 (1.1-1.8); Alkaline Phosphatase 98 U/L (38-126); Anion Gap 13.5 mEq/L (5-15); Aspartate Amino Transferase 33 U/L (14-36); Bilirubin,Total 1.1 mg/dl (0.2-1.3); Blood Urea Nitrogen 6 mg/dl (7-17); Carbon Dioxide 26 mmol/L (22.0-30.0); Creatinine,Serum 0.50 mg/dl (0.52-1.04); Estimated Glomerular Filt Rate 154 ml/min (>60); GFR (African American) 187 ML/MIN (>60); Globulin 4.1 g/dL (1.3-3.2); Lipase 120 U/L (23-300); Total Protein,Serum 9.0 g/dl (6.3-8.2)
[2025-03-25 18:44] LABS: Calcium 9.5 mg/dl (8.4-10.2); Glucose 95 mg/dl (74-100)
[2025-03-25 18:46] LABS: INR 1.08 (0.9-1.1); Prothrombin Time 11.9 seconds (10.1-12.5)
[2025-03-25 19:31] VITALS: BP 123/80; PULSE 92; O2SAT 98
--- NOTE | 2025-03-25 20:38 | PC.NURSE ---
ed providers at the bedside updating pt on POC
[2025-03-25 21:56] VITALS: BP 119/82; PULSE 96; RESP 20; TEMP 36.8; O2SAT 99
== END 2025-03-25 21:58 | disposition home or self-care (01) ==
PROVIDERS: Physician Assistant; Emergency Provider Student in an Organized Health Care Education/Training Program; PCP Nurse Practitioner Family
DX: O00.90 Unspecified ectopic pregnancy without intrauterine pregnancy (principal); O46.90 Antepartum hemorrhage, unspecified, unspecified trimester; Z3A.00 Weeks of gestation of pregnancy not specified
CPT/HCPCS: 76817; 80053; 81001; 83690; 84702; 85025; 85610; 86900; 86901; 87086; 99284; J9260

== ENCOUNTER 2025-03-26 20:07 | Emergency (ER) | payer OTHER, SELFPAY ==
[2025-03-26 20:18] VITALS: BP 149/78; PULSE 69; RESP 18; TEMP 36.6; O2SAT 98; BMI 20.9
--- OUTSIDE RECORDS SUMMARY | 2025-03-26 20:19 | XMS_ITS | Encounter Summary ---
Author Organization Healthcare Address [address] [place] [address] Care Team Providers Care Security Patrol Officer Name Role Phone Sarika Moyer Dorian COLON Primary Care Provider + Encounter Details Date Type Department Care Team (Late st Contact Info) Description 03/17/2025 Telephone Obstetrics & Gynecology [address] [place] [address] Chiki Cardenas MD [address] [place] [address] Social History Tobacco Use Types [...] AM EST Initial Obstetrics & Gynecology [address] [place] [address] Chiki Cardenas MD [address] [place] [address] documented as of this encounter Visit Diagnoses Not on filedocumented in this encounter Care Teams Security Patrol Officer Relationship Specialty Start Date End Date Sarika Moyer APRN [address] [place] [address] PCP - General 10/14/20 documented as of this encounter
--- OUTSIDE RECORDS SUMMARY | 2025-03-26 20:19 | XMS_ITS | Clinical Summary ---
Author Organization Healthcare Address [address] [place] [address] Care Team Providers Care Component Design Engineer Name Role Phone JoãoBunnyotmas Alarcon APRN Primary Care Provider + Encounters Date Type Department Care Team Description 03/17/2025 Telephone Obstetrics & Gynecology [address] [place] [address] Chiki Cardenas MD from Last [...] AM EST Initial Obstetrics & Gynecology [address] [place] [address] Chiki Cardenas MD [address] [place] [address] Health Maintenance Due Date Last Done Comments [facility]-Depression Screening 2002 [facility]-HIV Screening 2002 [facility]-Hepatitis C Screening 2002 [facility]-Infant/Child/Adol SDOH Screenings 2002 [facility]- SDOH Screenings 2020 [facility]-Adult SDOH Screenings 2020 [facility]-Pap Smear 2023 [facility]-DTaP,Tdap,and Td Vaccines (7 - Td or Tdap) 10/19/2024 10/19/2014, 05/21/2006, 08/26/2003, Additional history exists [id number] Vaccine (1 - season) 2025 [facility]-Influenza Vaccine [...] patient's age to complete this topic Insurance [facility] MEDICAID Care Teams Component Design Engineer Relationship Specialty Start Date End Date Sarika Moyer APRN [address] [address] PCP - General 10/14/20
--- NOTE | 2025-03-26 20:37 | ED_ITS ---
Discharge Plan Disposition Patient Disposition: Home, Self-Care Prescriptions Prescriptions: No Action hydroxyzine HCl 25 mg tablet 25 mg PO HS Qty: 30 0RF Referrals Follow up/Referrals: Sarika Moyer APRN [Primary Care Provider, Medical] - See instructions Activity Restrictions/Add. Instructions Additional Instructions/Restrictions: Please call Dr. Lee if you have any further issues concerning the methotrexate. Take Tylenol and ibuprofen scheduled for the pain. If bleeding becomes a concern please return to the ED Clinical Impressions Clinical Impression: Ectopic Instructions Patient Instructions: Ectopic Print Language Print Language: Nigerian Discharge ED Provider: Divina Dwyer General Adult HPI General Chief complaint: PAIN Stated complaint: 4-5 weeks Along; Cramping and Bleeding Time Seen by Provider: 03/26/25 20:15 Mode of Arrival: Ambulatory Source of Information: Patient Description of Symptoms (Recalled from ER Triage Doc. by RN): Pt presents to ED for pain after a spontaneous . Pt rec'd methotrexate last night at the ER. Pt followed up w Dr. Lee today. Pt's concerned bc she's still having pain that she rates 10. Pt is A&O*4 and family is bedside. History of Present Illness HPI narrative: 24-year-old female presents to the ED for pain after taking methotrexate last night in the ER. She did see Dr. Lee today. She does have pain right lower abdomen and pelvis. She states that she just needed to ask some questions tonight. She realizes that she is supposed to have some pain and she is just scared. She realizes that after taking methotrexate that she is having a spontaneous . She says she is not bleeding much at all. She is just having some sharp pain every once in a while. This comes and goes. She does realize that this is normal for an ectopic . She just could not get a hold of anybody in her doctor's office after hours so she wanted to ask some questions. She said she was under her with medication she could take and just wanted to ask. She says that she does not want to take any medications here in the ED tonight she just needed some reassurance. Her is at bedside. Related Data Previous Rx's ?Medication ?Instructions ?Recorded hydroxyzine HCl 25 mg tablet 25 mg PO HS #30 tabs 03/04 09/25 Allergies Allergy/AdvReac Type Severity Reaction Status Date / Time dextromethorphan Allergy Unknown Verified 03/26/25 13:51 allergy reaction guaifenesin (From Robitussin) Allergy Unknown Verified 03/26/25 13:51 [facility] reaction [facility] Disclaimer: The information contained in this section may have been updated after the patient was seen, as this information can be updated by other users. Medical History (Updated 03/26/25 @ 20:37 by Kandace Pugh (ED), LADLE FILLER) No significant medical problems Surgical History (Updated 03/26/25 @ 13:56 by COREY Moffett) History of tonsillectomy and adenoidectomy H/O oral surgery Social History (Updated 03/26/25 @ 13:56 by COREY Moffett) Smoking Status: Current every day smoker tobacco type: e-cigarettes alcohol intake: never current occupational status: employed Travel in the last 8 weeks?: None household members: spouse Have you lived/traveled outside US in past 30 days?: No Contact w/someone who lives/traveled outside US past 30 days?: No Exposure to someone with infectious disease in past 14 days?: No Do you have a fever (greater than 100.4 F or 38 C)?: No Have you tested positive for COVID-19?: No Exposed to someone with COVID-19 in past 14 days?: No Do you have a sore throat?: No Do you have a cough?: No Do you have any weakness?: No Do you have any diarrhea?: No Are you experiencing any unusual bleeding?: No Do you have any muscle aches/pain?: No Do you have any abdominal pain?: No Are you experiencing loss of taste or smell?: No ROS Obtained: Yes Systems reviewed as appropriate & no additional complaints except as documented Constitutional Constitutional: Reports as per HPI Physical Exam General General appearance: alert and anxious Head Head exam: normocephalic Eye Eye exam: Present PERRL and EOMI ENT ENT exam: Present normal oropharynx and mucous membranes moist Neck Neck exam: Present full ROM and trachea midline Respiratory Respiratory exam: Present normal lung sounds bilaterally Cardiovascular Cardiovascular exam: Present regular rate, normal rhythm, normal heart sounds, +S1 and +S2 Abdominal Exam Abdominal exam: Present soft and normal bowel sounds Abdominal tenderness: Present RLQ and mild Extremities Exam Extremities exam: Present full ROM and normal capillary refill Neurological Exam Neurological exam: Present alert, oriented X3 and normal gait Psychiatric Psychiatric exam: Present anxious Skin Skin exam: Present warm, dry and intact Medical Decision Making Medical Records Screening: Per USPSTF and CDC recommendations, given the prevalence of disease in our region, it is our hospital?s policy to screen for HIV and viral Hepatitis for all patients aged 18 and over and those with ongoing risk factors. Lucho Inquiry Pt receiving controlled substance: No Lucho was queried for this patient: No Vital Signs: 03/26/25 20:18 Temperature 97.9 F Temperature Source Oral Pulse Rate [Left] 69 Respiratory Rate 18 Blood Pressure [Right Arm] 149/78 H Blood Pressure Mean [Right Arm] 101 02 Sat by Pulse Oximetry 98 Oxygen Delivery Method Room Air Medical Decision Narrative: This is a 24-year-old female who presents to the ED today for some questions concerning taking methotrexate last night in the ER. She says she is just concerned about some of the medication she can and cannot take. She was just asking and did not want to take any medications or do any ultrasounds or testing tonight. She just wanted to know what to do and had some questions. She is very anxious and was nervous. Patient does show that she is very anxious but I was able to discuss at length the methotrexate and the side effects of this and the normal mishaps of ectopic pregnancies. We did pull up her ultrasound from last night and discussed it. Patient is safe for discharge home. She will call her PCP and DIGITAL TECH. Patient and I discussed that she can come back to this ER anytime that she feels it is necessary. Critical Care Critical Care Time Critical Care Time: No
[2025-03-26 20:45] VITALS: BP 138/64; PULSE 70; RESP 18; TEMP 36.6; O2SAT 98
== END 2025-03-26 20:46 | disposition home or self-care (01) ==
PROVIDERS: Emergency Provider Student in an Organized Health Care Education/Training Program; PCP Nurse Practitioner Family
DX: R10.31 Right lower quadrant pain (principal); R10.21 Pelvic and perineal pain right side; O00.90 Unspecified ectopic pregnancy without intrauterine pregnancy
CPT/HCPCS: 99281; 99283

== ENCOUNTER 2025-03-27 10:23 | Emergency (ER) | payer OTHER, SELFPAY ==
[2025-03-27] VITALS (7 sets, daily range): BP systolic 120–148; BP diastolic 80–94; PULSE 89–103; RESP 16; TEMP 36.7; O2SAT 98–100; BMI 20.9
--- NOTE | 2025-03-27 10:34 | PC.NURSE ---
(OB optical effects line up person) paged for
--- NOTE | 2025-03-27 10:34 | ED_ITS ---
Discharge Plan Disposition Patient Disposition: Home, Self-Care Prescriptions Prescriptions: No Action hydroxyzine HCl 25 mg tablet 25 mg PO HS Qty: 30 0RF Referrals Follow up/Referrals: Sarika Moyer APRN [Primary Care Provider, Medical] - See instructions Activity Restrictions/Add. Instructions Additional Instructions/Restrictions: At this time it was felt you are safe to be discharged home. If new or worsening symptoms please do not hesitate to return the emergency department. Please follow-up with Marlin Lee on Saturday as discussed. I recommend taking 400 mg of ibuprofen and 650 mg of Tylenol with food every 6 hours at the same time until you follow-up with her Clinical Impressions Clinical Impression: Ectopic , Abdominal pain Print Language Print Language: Uzbek Discharge ED Provider: Chet Hernandez General Adult HPI General Chief complaint: PAIN Stated complaint: atopic /6 weeks pain in right side Time Seen by Provider: 03/27/25 10:25 History of Present Illness HPI narrative: Patient is a 24-year-old female G1, P0 last menstrual period approximately January 20 with known ectopic status post methotrexate administration who presents emergency department for evaluation of intermittent right lower quadrant abdominal pain. Patient has had 2 weeks of spotting, has not passed tissue or blood. She had a positive test. Ultimately patient had transvaginal ultrasound on which was unable to identify definitive intrauterine and patient was discharged with rapid follow-up. Subsequently on the patient had repeat transvaginal ultrasound which had a structure in the right adnexa concerning for ectopic and the case was discussed with Dr. Lee at that time and methotrexate was administered and she was given strict return precautions. She then Arnaud presented last night due to concern for intermittent right lower quadrant abdominal pain and was subsequently discharged home. Since then she has had continued symptoms of intermittent right lower quadrant abdominal pain that are concerning to her and she presents here for repeat evaluation. She still has persistent spotting but no passage of clots or tissue. There is associated nausea without vomiting. No other acute complaints at this time. Please note that above description of symptoms, in this electronic medical record under categorization of recalled from ER triage doctor by RN are reflective of an initial nursing assessment, however, is not reflective of my full history and physical exam that was personally taken and clarified. Consequentially, this preceding description of symptoms, which may include the patient's categorized chief complaint in the EMR, do not reflect my personal clinical impression, and the ultimate description of history of present illness and patient stated complaints should be deferred to this section of the note. Unless stated otherwise or congruent with this section of the note, additional signs, symptoms, or incongruence should be interpreted as inaccurate with my clinical impression. Related Data Previous Rx's ?Medication ?Instructions ?Recorded hydroxyzine HCl 25 mg tablet 25 mg PO HS #30 tabs 03/04 09/25 Allergies Allergy/AdvReac Type Severity Reaction Status Date / Time dextromethorphan Allergy Unknown Verified 03/26/25 13:51 allergy reaction guaifenesin (From Robitussin) Allergy Unknown Verified 03/26/25 13:51 allergy reaction PFSH PFS Disclaimer: The information contained in this section may have been updated after the patient was seen, as this information can be updated by other users. Medical History (Updated 03/27/25 @ 13:10 by Chet Hernandez MD) No significant medical problems Surgical History (Updated 03/26/25 @ 13:56 by COREY Moffett) History of tonsillectomy and adenoidectomy H/O oral surgery Social History (Updated 03/26/25 @ 13:56 by COREY Moffett) Smoking Status: Current every day smoker tobacco type: e-cigarettes alcohol intake: never current occupational status: employed Travel in the last 8 weeks?: None household members: spouse Have you lived/traveled outside US in past 30 days?: No Contact w/someone who lives/traveled outside US past 30 days?: No Exposure to someone with infectious disease in past 14 days?: No Do you have a fever (greater than 100.4 F or 38 C)?: No Have you tested positive for COVID-19?: No Exposed to someone with COVID-19 in past 14 days?: No Do you have a sore throat?: No Do you have a cough?: No Do you have any weakness?: No Do you have any diarrhea?: No Are you experiencing any unusual bleeding?: No Do you have any muscle aches/pain?: No Do you have any abdominal pain?: Yes Are you experiencing loss of taste or smell?: No ROS Obtained: Yes Systems reviewed as appropriate & no additional complaints except as documented Physical Exam General General appearance: in no apparent distress and anxious Head Head exam: atraumatic and normocephalic Eye Eye exam: Present PERRL and EOMI ENT ENT exam: Present mucous membranes moist Neck Neck exam: Present normal inspection Chest Chest inspection: Present normal inspection and symmetric chest wall rise Respiratory Respiratory exam: Present normal lung sounds bilaterally; Absent respiratory distress Cardiovascular Cardiovascular exam: Present normal rhythm and tachycardia Abdominal Exam Abdominal exam: Present soft; Absent tenderness, guarding or rebound Extremities Exam Extremities exam: Present normal inspection Neurological Exam Neurological exam: Present alert Psychiatric Psychiatric exam: Present normal affect Skin Skin exam: Present warm and dry Medical Decision Making Medical Records Screening: Per USPSTF and CDC recommendations, given the prevalence of disease in our region, it is our hospital?s policy to screen for HIV and viral Hepatitis for all patients aged 18 and over and those with ongoing risk factors. Lucho Inquiry Pt receiving controlled substance: No Vital Signs: 03/27/25 10:29 03/27/25 10:30 03/27/25 10:45 Temperature Temperature Source Pulse Rate 89 98 H 103 H Pulse Rate [Left Radial] Respiratory Rate Blood Pressure 148/90 H 130/94 H 133/91 H Blood Pressure [Right Arm] Blood Pressure Mean [Right Arm] 02 Sat by Pulse Oximetry 99 99 98 Oxygen Delivery Method Room Air Room Air 03/27/25 10:46 03/27/25 11:00 03/27/25 11:31 Temperature 98.1 F Temperature Source Oral Pulse Rate 100 H 90 Pulse Rate [Left Radial] 103 H Respiratory Rate 16 Blood Pressure 123/88 121/85 Blood Pressure [Right Arm] 133/91 H Blood Pressure Mean [Right Arm] 105 02 Sat by Pulse Oximetry 100 100 100 Oxygen Delivery Method Room Air Room Air Lab Data Lab Results 03/27/25 10:25: WBC 8.3, RBC 5.10, Hgb 14.6, Hct 43.9, MCV 86.1, MCH 28.6, MCHC 33.3, RDW 12.3, Plt Count 509 H, MPV 9.1, Neut % (Auto) 67.0, Lymph % (Auto) 25.1, [place] % (Auto) 6.7, Eos % (Auto) 0.6, Baso % (Auto) 0.5, Neut # (Auto) 5.6, Lymph # (Auto) 2.1, [place] # (Auto) 0.6, Eos # (Auto) 0.1, Baso # (Auto) 0.0, Sodium 137, Potassium 3.8, Chloride 99, Carbon Dioxide 25, Anion Gap 16.8 H, BUN 11 D, Creatinine 0.60, Estimated Creat Clear 102, Estimated GFR 125, Est GFR ( Amer) 151, Glucose 99, Calcium 9.8, Total Bilirubin 2.0 H, AST 26, ALT 14, Alkaline Phosphatase 121, Total Protein 8.7 H, Albumin 5.0, Globulin 3.7 H, Albumin/Globulin Ratio 1.4, HCG, Quant 543 H 03/27/25 10:42: Urine Color Dark yellow, Urine Appearance Slightly cloudy, Urine pH 6.0, Ur Specific [place] 1.025, Urine Protein 2+ A, Urine Glucose (UA) Negative, Urine Ketones 3+, Urine Blood 3+ A, Urine Nitrate Negative, Urine Bilirubin Negative, Urine Urobilinogen 1.0, Ur Leukocyte Esterase Negative, Urine RBC 10-20, Urine WBC 3-5, Ur Squamous Epith Cells 5-10, Urine Bacteria Trace 03/27/25 10:25 03/27/25 10:25 Orders (Tests/Meds): ED MEDICATIONS Discontinued Medications Generic Name Dose Route Start Last Admin Trade Name Freq PRN Reason Stop Dose Admin Acetaminophen 1,000 mg 03/27/25 10:33 03/27/25 10:50 Acetaminophen 500mg Tab PO 03/27/25 10:34 1,000 mg ONCE ONE Administration ORDERS Category Date Time Status CBC w/Auto Diff [Complete Blood Count Auto Diff] Stat Lab 03/27/25 10:25 Completed CMP [Comprehensive Metabolic Panel] Stat Lab 03/27/25 10:25 Completed HCG,Quantitative Stat Lab 03/27/25 10:25 Completed UA [Urinalysis and Microscopic] Stat Lab 03/27/25 10:42 Completed US OB transvaginal Stat Ultrasound 03/27/25 10:44 Completed Medical Decision Narrative: In summary patient is a 24-year-old female with past medical history of scrota above who presents emergency department for evaluation of right lower quadrant abdominal pain in the setting of ectopic status post methotrexate ministration. Patient is hemodynamically stable nontoxic-appearing upon arrival, afebrile, tachycardic and anxious. Differential includes persistent ectopic , rupture, among others. Initial workup will be conducted with hematologic labs. Clinically patient has no tenderness and no hypotension or discordant bradycardia which can be seen in ruptured ectopic . The case was discussed with Dr. Lee regarding utility of diagnostic imaging and we will proceed with transvaginal ultrasound at this time. Quant hCG downtrending [phone]. Remainder of hematologic labs are nonactionable. I had interactive discussion with radiology there is a soft tissue mass again noted in the right adnexa which in this clinical context is most consistent with ectopic . No intrauterine no evidence of torsion and no free fluid. I subsequently discussed case with Dr. Lee regarding management patient is appropriate for outpatient management at this time and will follow-up with her on Saturday morning. Patient was instructed to take Tylenol and ibuprofen every 6 hours until then and was given return precautions and verbalized understanding Critical Care Critical Care Time Critical Care Time: No
--- NOTE | 2025-03-27 10:39 | PC.NURSE ---
speaking with on the phone at this time.
--- NOTE | 2025-03-27 10:44 | US_ITS ---
PROCEDURE INFORMATION: Exam: US , Transvaginal and US Duplex Artery and Vein, Ovaries, Complete Exam date and time: 03/27/2025 11:25 AM Age: 24 years old Clinical indication: complicated by abdominal or pelvic pain; Right lower quadrant; First trimester (<14 weeks 0 days); Gestational age or lmp: 9w3d; Additional info: Ectopic continued rlq pain LABS AND CLINICAL REPORTS: Last menstrual period start date: 01/20/2025 Gestational age (Established): 9 w 3 d Estimated due date (Established): 10/27/2025 TECHNIQUE: Imaging protocol: Real-time transvaginal obstetrical ultrasound of the maternal pelvis and a first trimester with image documentation. Transvaginal imaging was used for better evaluation of the fetus, adnexa, and/or cervix. Real-time duplex ultrasound scan of the arterial and venous flow of the ovaries with B-mode, color Doppler flow and spectral waveform analysis, Complete Duplex. Duplex exam was performed to evaluate for torsion and other vascular conditions. Total images: 122 COMPARISON: US OB TRANSVAGINAL 03/25/2025 6:17 PM FINDINGS: GESTATION: Gestation: Findings may be consistent with ectopic . No evidence of a gestational sac within the uterus. MATERNAL: Right ovary/adnexa: Right ovary measures 2.89 cm x 1.9 cm x 2.11 cm. Right ovarian volume is 6.07 mL. Soft tissue mass is again noted within the right adnexal region measuring up to 1.5 cm. Blood flow is demonstrated to the right ovary. Left ovary/adnexa: Left ovary measures 2.68 cm x 1.36 cm x 1.7 cm. Left ovarian volume is 3.24 mL. . Blood flow is demonstrated to the left ovary. Intraperitoneal space: No free fluid. IMPRESSION: 1. Soft tissue mass is again noted within the right adnexal region measuring up to 1.5 cm. Findings may be consistent with ectopic . Clinical correlation is needed. 2. No evidence of a gestational sac within the uterus. 3. No evidence of ovarian torsion. 4. No free fluid.
--- NOTE | 2025-03-27 10:45 | PC.NURSE ---
call made to [facility] for ultrasound to come in for transvaginal ultrasound
[2025-03-27 10:49] LABS: Hematocrit 43.9 % (37.0-47.0); Hemoglobin 14.6 g/dL (12.2-16.2); Immature Granulocytes % 0.1 %; Mean Corpuscular HGB Conc 33.3 g/dL (31.8-35.4); Mean Corpuscular Hemoglobin 28.6 pg (27.0-31.2); Mean Corpuscular Volume 86.1 fl (81-99); Nucleated Red Blood Cells % 0 %; Platelet Count 509 K/mm3 (142-424); Red Blood Count 5.10 M/mm3 (4.20-5.40); Red Cell Distribution Width-SD 38.6 fL; White Blood Count 8.3 K/mm3 (4.8-10.8)
[2025-03-27 10:49] LABS: Microscopic, Urine URINE MICROSCOPIC (MICROSCOPIC)
[2025-03-27] MEDS: ACETAMINOPHEN 500MG TAB 1000 MG PO (10:50)
--- OUTSIDE RECORDS SUMMARY | 2025-03-27 10:50 | XMS_ITS | Clinical Summary ---
Author Organization Healthcare Address [address] [place] [address] Care Team Providers Care Agricultural Consultant Name Role Phone JoãoBunnytomas Alarcon APRN Primary Care Provider + Encounters Date Type Department Care Team Description 03/17/2025 Telephone Obstetrics & Gynecology [address] [place] [address] Chiki Cardenas MD from Last [...] AM EST Initial Obstetrics & Gynecology [address] [place] [address] Chiki Cardenas MD [address] [place] [address] Health Maintenance Due Date Last Done Comments [facility]-Depression Screening 2002 [facility]-HIV Screening 2002 [facility]-Hepatitis C Screening 2002 [facility]-Infant/Child/Adol SDOH Screenings 2002 [facility]- SDOH Screenings 2020 [facility]-Adult SDOH Screenings 2020 [facility]-Pap Smear 2023 [facility]-DTaP,Tdap,and Td Vaccines (7 - Td or Tdap) 10/19/2024 10/19/2014, 05/21/2006, 08/26/2003, Additional history exists [id number] Vaccine (1 - season) 2025 [facility]-Influenza Vaccine [...] patient's age to complete this topic Insurance [facility] MEDICAID Care Teams Agricultural Consultant Relationship Specialty Start Date End Date Sarika Moyer APRN [address] [id number] PCP - General 10/14/20
--- OUTSIDE RECORDS SUMMARY | 2025-03-27 10:50 | XMS_ITS | Encounter Summary ---
Author Organization Healthcare Address [address] [place] [address] Care Team Providers Care Living Nurse Name Role Phone Sarika Moyer Dorian COLON Primary Care Provider + Encounter Details Date Type Department Care Team (Late st Contact Info) Description 03/17/2025 Telephone Obstetrics & Gynecology [address] [place] [address] Chiki Cardenas MD [address] [place] [address] Social History Tobacco Use Types [...] AM EST Initial Obstetrics & Gynecology [address] [place] [address] Chiki Cardenas MD [address] [place] [address] documented as of this encounter Visit Diagnoses Not on filedocumented in this encounter Care Teams Living Nurse Relationship Specialty Start Date End Date Sarika Moyer APRN [address] [place] [address] PCP - General 10/14/20 documented as of this encounter
[2025-03-27 11:03] LABS: Alanine Aminotransferase 14 U/L (12-78); Albumin Level 5.0 g/dl (3.5-5.0); Albumin/Globulin Ratio 1.4 (1.1-1.8); Alkaline Phosphatase 121 U/L (38-126); Anion Gap 16.8 mEq/L (5-15); Aspartate Amino Transferase 26 U/L (14-36); Bilirubin,Total 2.0 mg/dl (0.2-1.3); Blood Urea Nitrogen 11 mg/dl (7-17); Calcium 9.8 mg/dl (8.4-10.2); Carbon Dioxide 25 mmol/L (22.0-30.0); Chloride 99 mmol/L (98-107); Creatinine Clearance Estimated 102 mL/min (50-200); Creatinine,Serum 0.60 mg/dl (0.52-1.04); Estimated Glomerular Filt Rate 125 ml/min (>60); GFR (African American) 151 ML/MIN (>60); Globulin 3.7 g/dL (1.3-3.2); Glucose 99 mg/dl (74-100); Potassium 3.8 mmoL/L (3.5-5.1); Sodium 137 mmol/L (136-145); Total Protein,Serum 8.7 g/dl (6.3-8.2)
[2025-03-27 12:04] LABS: Glucose,Urine (UA) Negative (Negative); Ketones,Urine 3+ (Negative); Leukocyte Esterase,Urine Negative (Negative); PH,Urine 6.0 (5.0-8.5); Protein,Urine 2+ (Negative); Specific Gravity, Urine 1.025 (1.005-1.030); Urobilinogen,Urine 1.0 EU/dl (0.2)
[2025-03-27 12:10] LABS: Bilirubin,Urine Negative (Negative); Color,Urine Dark Yellow (Yellow)
[2025-03-27 12:45] LABS: Bacteria,Urine Trace /lpf
== END 2025-03-27 13:27 | disposition home or self-care (01) ==
PROVIDERS: Emergency Provider Emergency Medicine; PCP Nurse Practitioner Family
DX: O00.90 Unspecified ectopic pregnancy without intrauterine pregnancy (principal); R10.31 Right lower quadrant pain; R11.0 Nausea
CPT/HCPCS: 76817; 80053; 81001; 84702; 85025; 99284

== ENCOUNTER 2025-03-28 10:21 | Outpatient (CLI) | payer OTHER, SELFPAY ==
--- OUTSIDE RECORDS SUMMARY | 2025-03-27 20:35 | XMS_ITS | Encounter Summary ---
Author Organization Healthcare Address [address] [place] [address] Care Team Providers Care Bindery Machine Setter/Set Up Operator Name Role Phone Sarika Moyer ISAIAH Primary Care Provider + Reason for Visit * Reason Comments Pelvic Pain Encounter Details Date Type Department Care Team (Late st Contact Info) Description 03/27/2025 8:35 PM EDT - 03/28/2025 1:22 AM EDT Emergency [facility] Emergency Department [address] [place] [address] Rose Cortes MD [address] [place] [address] of unknown anatomic location (Primary Dx) Discharge [...] as able. Please increase your water intake. [place] use of warm and/or cold compresses. Primary [...] here is available to you via the [employer] Internet portal. Please make sure that you are registered for access to this. documented in this encounter Miscellaneous Notes * ED Triage Notes - Joanne Morley, RN - 03/27/2025 7:40 PM EDT Patient presents with diagnosed unruptured ectopic . Had shot of methotrexate 3 days ago. Pain to R side of pelvis. VSS. documented in this encounter Plan of Treatment Upcoming Encounters Date Type Department Care Team (Late st Contact Info) Description 04/05/2025 8:15 AM EST Initial [facility] [address] [place] [address] Chiki Cardenas MD [address] [place] [address] documented as of this encounter [...] 03/27/2025 11:57 PM us Rose Cortes MD [facility] US PROCEDURES Final Result * ED HIV 1/2 Antibody/Antigen Screen w/Reflex to HIV 1/2 Differentiation (03/27/2025 8:31 PM EDT) HIV 1 & 2 Antibody/Antigen Screen Non Reactive Non Reactive 03/27/2025 9:26 PM EDT [facility] Comment:Screening for HIV 1 & 2 antibodies, and P24 antigen is NONREACTIVE. No confirmatory testing is required. Blood Venous blood specimen / Unknown Venipuncture / Unknown 03/27/2025 8:31 PM EDT 03/27/2025 8:44 PM EDT Rose Cortes MD LAB BLOOD ORDERABLES Final Resu lt [facility] [address] [place] [address] * Hepatitis C Antibody - ED (03/27/2025 8:31 PM EDT) Pathologist [facility] Hepatitis C Antibody Negative Negative 03/27/2025 9:26 PM EDT [facility] Blood Venous blood specimen / Unknown Venipuncture / Unknown 03/27/2025 8:31 PM EDT 03/27/2025 8:44 PM EDT Rose Cortes MD LAB BLOOD ORDERABLES Final Resu lt Performing Organization Address City/[facility] Co de Phone Number [facility] [address] [place] [address] * Type and screen (03/27/2025 8:31 PM EDT) Pathologist [facility] ABO/Rh A Positive 03/27/2025 8:37 PM EDT BLOOD BANK Antibody Screen Negative 03/27/2025 8:37 PM EDT BLOOD BANK Specimen Expiration 03/30/2025 23:59 03/27/2025 8:37 PM EDT BLOOD BANK Blood Venous blood specimen / Unknown Venipuncture / Unknown 03/27/2025 8:31 PM EDT 03/27/2025 8:37 PM EDT Rose Cortes MD LAB BLOOD BANK TEST ORDERABLES Final Result Performing Organization Address City/[facility]/ZIP Co de Phone Number BLOOD BANK [address] [place] [address], [place] * (ABNORMAL) hCG, quantitative, (03/27/2025 8:31 PM EDT) Pathologist [facility] hCG, Total Beta 626.2(H) <5 mIU/mL 03/27/2025 9:22 PM EDT [facility] Blood Venous blood specimen / Unknown Venipuncture / Unknown 03/27/2025 8:31 PM EDT 03/27/2025 8:41 PM EDT Narrative [facility] - 03/27/2025 9:22 PM [...] MD LAB BLOOD ORDERABLES Final Resu lt [facility] [address] [place] [address] * (ABNORMAL) CBC w/diff (03/27/2025 8:31 PM EDT) WBC Count 11.76(H) 3.70 - 10.30 10*3/uL LAB HEMATOLOGY METHOD 03/27/2025 8:44 PM EDT [facility] RBC Count 4.82 3.90 - 5.20 10*6/uL LAB HEMATOLOGY METHOD 03/27/2025 8:44 PM EDT [facility] HGB 14.2 11.2 - 15.7 g/dL LAB HEMATOLOGY METHOD 03/27/2025 8:44 PM EDT [facility] HCT 39.9 34.0 - 45.0 % LAB HEMATOLOGY METHOD 03/27/2025 8:44 PM EDT [facility] Platelet Count 523(H) 155 - 369 10*3/uL LAB HEMATOLOGY METHOD 03/27/2025 8:44 PM EDT [facility] MCV 83 79 - 98 fL LAB HEMATOLOGY METHOD 03/27/2025 8:44 PM EDT [facility] MCH 29.5 26.0 - 32.0 pg LAB HEMATOLOGY METHOD 03/27/2025 8:44 PM EDT [facility] MCHC 35.6(H) 30.7 - 35.5 g/dL LAB HEMATOLOGY METHOD 03/27/2025 8:44 PM EDT [facility] RDW 12.2 11.5 - 14.5 % LAB HEMATOLOGY METHOD 03/27/2025 8:44 PM EDT [facility] MPV 9.3 8.8 - 12.5 fL LAB HEMATOLOGY METHOD 03/27/2025 8:44 PM EDT [facility] nRBC 0.0 <=0.0 per 100 WBCs LAB HEMATOLOGY METHOD 03/27/2025 8:44 PM EDT [facility] Differential Type Automated LAB HEMATOLOGY METHOD 03/27/2025 8:44 PM EDT [facility] Neutrophils % 71 % LAB HEMATOLOGY METHOD 03/27/2025 8:44 PM EDT [facility] Lymphocytes % 25 % LAB HEMATOLOGY METHOD 03/27/2025 8:44 PM EDT [facility] Monocytes % 4 % LAB HEMATOLOGY METHOD 03/27/2025 8:44 PM EDT [facility] Eosinophils % 0 % LAB HEMATOLOGY METHOD 03/27/2025 8:44 PM EDT [facility] Basophils % 0 % LAB HEMATOLOGY METHOD 03/27/2025 8:44 PM EDT [facility] Immature Granulocytes % 0 % LAB HEMATOLOGY METHOD 03/27/2025 8:44 PM EDT [facility] Neutrophils Absolute 8.17(H) 1.60 - 6.10 10*3/uL LAB HEMATOLOGY METHOD 03/27/2025 8:44 PM EDT [facility] Lymphocytes Absolute 2.96 1.20 - 3.90 10*3/uL LAB HEMATOLOGY METHOD 03/27/2025 8:44 PM EDT [facility] Monocytes Absolute 0.52 0.30 - 0.90 10*3/uL LAB HEMATOLOGY METHOD 03/27/2025 8:44 PM EDT [facility] Eosinophils Absolute 0.03 0.00 - 0.50 10*3/uL LAB HEMATOLOGY METHOD 03/27/2025 8:44 PM EDT [facility] Basophils Absolute 0.05 0.00 - 0.10 10*3/uL LAB HEMATOLOGY METHOD 03/27/2025 8:44 PM EDT [facility] Immature Granulocytes Absolute 0.03 0.00 - 0.06 10*3/uL LAB HEMATOLOGY METHOD 03/27/2025 8:44 PM EDT [facility] Blood Venous blood specimen / Unknown Venipuncture / Unknown 03/27/2025 8:31 PM EDT 03/27/2025 8:41 PM EDT Narrative [facility] - 03/27/2025 8:44 PM EDT Therapeutic decision making should be based on absolute values, rather than percentages. us Rose Cortes MD LAB BLOOD ORDERABLES Final Resu lt [facility] [address] [place] [address] * (ABNORMAL) CMP (03/27/2025 8:31 PM EDT) Glucose, Plasma 96 74 - 99 mg/dL 03/27/2025 9:22 PM EDT [facility] BUN, Plasma 11 7 - 21 mg/dL 03/27/2025 9:22 PM EDT [facility] Creatinine, Plasma 0.48(L) 0.60 - 1.10 mg/dL 03/27/2025 9:22 PM EDT [facility] BUN/Creatinine Ratio 23 03/27/2025 9:22 PM EDT [facility] Sodium, Plasma 136 136 - 145 mmol/L 03/27/2025 9:22 PM EDT [facility] Potassium, Plasma 3.1(L) 3.6 - 4.9 mmol/L 03/27/2025 9:22 PM EDT [facility] Chloride, Plasma 100 97 - 107 mmol/L 03/27/2025 9:22 PM EDT [facility] CO2, Plasma 20(L) 22 - 29 mmol/L 03/27/2025 9:22 PM EDT [facility] Anion Gap 16 6 - 16 mmol/L 03/27/2025 9:22 PM EDT [facility] Total Calcium, Plasma 9.8 8.9 - 10.2 mg/dL 03/27/2025 9:22 PM EDT [facility] Total Protein 7.7 6.3 - 7.9 g/dL 03/27/2025 9:22 PM EDT [facility] Albumin, Plasma 4.9 3.5 - 5.2 g/dL 03/27/2025 9:22 PM EDT [facility] AST, Plasma 17 10 - 35 U/L 03/27/2025 9:22 PM EDT [facility] ALT, Plasma 8(L) 10 - 35 U/L 03/27/2025 9:22 PM EDT [facility] Alkaline Phosphatase, Plasma 102 35 - 104 U/L 03/27/2025 9:22 PM EDT [facility] Total Bilirubin, Plasma 1.3(H) 0.2 - 1.1 mg/dL 03/27/2025 9:22 PM EDT [facility] eGFRcr 137.5 mL/min/1.7 3m*2 03/27/2025 9:22 PM EDT [facility] Comment:Reported eGFRcr in m L/min/1.73m2 is based the CKD-EPI 2020 equation that does not use a race coefficient. Blood Venous blood specimen / Unknown Venipuncture / Unknown 03/27/2025 8:31 PM EDT 03/27/2025 8:41 PM EDT us Rose Cortes MD LAB BLOOD ORDERABLES Final Resu lt [facility] [address] [place] [address] documented in this encounter Visit Diagnoses Diagnosis [...] Foss) documented in this encounter Care Teams Bindery Machine Setter/Set Up Operator Relationship Specialty Start Date End Date Sarika Moyer APRN [address] [place], [place] [address] PCP - General 10/14/20 documented as of this encounter
--- OUTSIDE RECORDS SUMMARY | 2025-03-28 10:24 | XMS_ITS | Encounter Summary ---
Author Organization [facility] Address [address] [place] [id number] Care Team Providers Care Cigarette Machine Operator Name Role Phone Sarika Moyer AEROSOL LINE OPERATOR Primary Care Provider + Encounter Details Date Type Department Care Team (Latest Contact Info) Description 03/27/2025 Travel Social History Tobacco Use Types Packs/Day Years [...] on file documented as of this encounter Plan of Treatment Upcoming Encounters Date Type Department Care Team (Late st Contact Info) Description 04/05/2025 8:15 AM EST Initial [facility] [address] [place] [address] Chiki Cardenas MD [address] [place] [address] documented as of this encounter Visit Diagnoses Not on filedocumented in this encounter Care Teams Cigarette Machine Operator Relationship Specialty Start Date End Date Sarika Moyer, AEROSOL LINE OPERATOR [address] [place] [address] PCP - General 10/14/20 documented as of this encounter
--- OUTSIDE RECORDS SUMMARY | 2025-03-28 10:24 | XMS_ITS | Clinical Summary ---
Author Organization Healthcare Address [address] [id number] Care Team Providers Care Vortex Operator Name Role Phone Sarika Moyer SUPERVISOR SHUTTLE PREPARATION Primary Care Provider + Allergies Active Allergy Reactions Criticality Noted Date Comments Escitalopram Anaphylaxis High 03/27/2025 Robitussin Dm Max Day-Night Anxiety Low 03/27/20 Medications No known medications Active Problems Comments Yes No known active problems Encounters Date Type Department Care Team Description 03/27/2025 8:35 PM EDT - 03/28/2025 1:22 AM EDT Emergency [facility] Emergency Department [address] [place] [address] Rose Cortes MD of unknown anatomic location (Primary Dx) Discharge Disposition: Home or Self Care 03/27/2025 Travel 03/17/2025 Telephone Obstetrics & Gynecology [address] [place] [address] Chiki Cardenas MD from Last 3 [...] oz) 03/27/2025 7:43 P M EDT Height 147.5 cm (4' 10.07 ) 01/26/2020 1:39 PM E DT Body Mass Index - - Plan of Treatment Upcoming Encounters Date Type Department Care Team (Late st Contact Info) Description 04/05/2025 8:15 AM EST Initial Obstetrics & Gynecology [address] [place] [address] Chiki Cardenas MD [address] [place] [address] Health Maintenance Due Date Last Done Comments [facility]-Depression Screening 2002 [facility]-Infant/Child/Adol SDOH Screenings 2002 [facility]- SDOH Screenings 2020 [facility]-Adult SDOH Screenings 2020 [facility]-Pap Smear 2023 [facility]-DTaP,Tdap,and Td Vaccines (7 - Td or Tdap) 10/19/2024 10/19/2014, 05/21/2006, 08/26/2003, Additional history exists [id number] Vaccine ( - season) 2025 [facility]-Influenza Vaccine (#1) 2025 [facility]-Zoster Vaccines (1 of 2) 2052 05/21/2006, 05/31/2003 [facility]-RSV Vaccine: 60+ Years or (1 - 1-dose 75+ series) 2077 [facility]-HIB Vaccines Completed 05/31/2003, 11/2002, 2002 [facility]-Hepatitis [...] 10/19/2014 [facility]-Hepatitis A Vaccines Completed 08/11/2015, 10/01 [facility]-HIV Screening Completed 03/27/2025 [facility]-Hepatitis C Screening Completed 03/27/2025 [facility]-Rotavirus Vaccines Aged Out No lo nger eligible based on patient's age to complete this topic Procedures Procedure Name Priority Date/Time Associated Diagnosis Comments US PELVIS TRANSVAGINAL STAT 11:48 PM EDT ED HIV 1/2 ANTIBODY/ANTIGEN SCREEN WITH REFLEX TO HIV I/II DIFFERENTIATION STAT 03/27/2025 8:31 PM EDT ED PROTOCOL HIV 1/2 ANTIBODY/ANTIGEN SCREEN W/REFLEX TO HIV 1/2 ANTIBODY DIFFERENTIATION STAT 03/27/2025 8:31 PM EDT HEPATITIS C ANTIBODY - ED W/REFLEX TO HCV QUANT PCR STAT 03/27/2025 8:31 PM EDT TYPE AND SCREEN STAT 03/27/2025 8:31 PM EDT HCG, QUANTITATIVE STAT 03/27/2025 8:3 1 PM EDT CBC WITH AUTO DIFFERENTIAL STAT 03/27/2025 8:31 PM EDT COMPREHENSIVE METABOLIC PANEL, PLASMA STAT 03/27/2025 8:31 PM EDT from Last 3 Months Results * US Pelvis Transvaginal (03/27/2025 11:48 [...] on 03/27/2025 11:57 PM Rose Cortes MD [facility] US PROCEDURES Final Result * ED HIV [...] ORDERABLES Final Resu lt Performing Organization Address City/[facility]/ZIP Co de Phone Number [facility] [address] [place] [address] * Hepatitis C Antibody - ED (03/27/2025 8:31 PM EDT) Pathologist [facility] Hepatitis C Antibody Negative Negative 03/27/2025 9:26 PM EDT [facility] Blood Venous blood specimen / Unknown Venipuncture / Unknown 03/27/2025 8:31 PM EDT 03/27/2025 8:44 PM EDT Rose Cortes MD LAB BLOOD ORDERABLES Final Resu lt Performing Organization Address City/[facility]/ZIP Co de Phone Number [facility] [address] [place] [address] * (ABNORMAL) CBC w/diff (03/27/2025 8:31 PM EDT) [facility] WBC Count 11.76(H) 3.70 - 10.30 10*3/uL [...] based on absolute values, rather than percentages. Rose Cortes MD LAB BLOOD ORDERABLES Final Resu lt [facility] [address] [place] [address] * Type and screen (03/27/2025 8:31 PM [...] Final Result Performing Organization Address [facility] de Phone Number BLOOD BANK [address] [place] [address], * (ABNORMAL) hCG, quantitative, (03/27/2025 8:31 PM EDT) hCG, Total Beta 626.2(H) <5 mIU/mL 03/27/2025 9:22 PM EDT [facility] Blood [...] Resu lt [facility] [address] [place] [address] * (ABNORMAL) CMP (03/27/2025 8:31 PM EDT) [...] Resu lt [facility] [address] [place] [address] from Last 3 Months Insurance [facility] MEDICAID Care Teams Vortex Operator Relationship Specialty Start Date End Date Sarika Moyer APRN [address] [place], [place] [address] PCP - General 10/14/20
--- OUTSIDE RECORDS SUMMARY | 2025-03-28 10:24 | XMS_ITS | Encounter Summary ---
Author Organization [facility] Address [address] [id number] Care Team Providers Care Scale Tester Name Role Phone Sarika Moyer APRN Primary Care Provider + Encounter Details Date Type Department Care Team (Late Contact Info) Description 03/17/2025 Telephone Obstetrics & Gynecology [address] [place] [address] Chiki Cardenas MD [address] [place] [address] Social History Tobacco Use Types [...] 11:49 AM EDT 03/17/25 scheduled apt per [employer] documented in this encounter Plan of Treatment Upcoming Encounters Date Type Department Care Team ([facility] Contact Info) Description 04/05/2025 8:15 AM EST Initial Obstetrics & Gynecology [address] [place] [address] Chiki Cardenas MD [address] [place] [phone] documented as of this encounter Visit Diagnoses Not on filedocumented in this encounter Care Teams Scale Tester Relationship Specialty Start Date End Date Sarika Moyer APRN [address] [facility] [place] [address] PCP - General 10/14/20 documented as of this encounter
== END 2025-03-28 23:59 | disposition home or self-care (01) ==
LOC: LAB 10:22
PROVIDERS: PCP Nurse Practitioner Family; Visit Provider Obstetrics & Gynecology
DX: O00.90 Unspecified ectopic pregnancy without intrauterine pregnancy (principal)
CPT/HCPCS: 36415; 84702

== ENCOUNTER 2025-03-30 17:18 | Emergency (ER) | payer OTHER, SELFPAY ==
--- OUTSIDE RECORDS SUMMARY | 2025-03-27 20:35 | XMS_ITS | Encounter Summary ---
Author Organization Healthcare Address [address] [place] [address] Care Team Providers Care Engine Watchman Name Role Phone Sarika Moyer ISAIAH Primary Care Provider + Reason for Visit * Reason Comments Pelvic Pain Encounter Details Date Type Department Care Team (Late st Contact Info) Description 03/27/2025 8:35 PM EDT - 03/28/2025 1:22 AM EDT Emergency PAV A Emergency Department [address] [place] [address] Rose Cortes MD [address] [place] [address] of unknown anatomic location (Primary Dx) Discharge [...] as able. Please increase your water intake. [place] use of warm and/or cold compresses. Primary [...] here is available to you via the [employer] Internet portal. Please make sure that you are registered for access to this. documented in this encounter Miscellaneous Notes * Consults - Ivon Marmolejo MD - 03/28/2025 1:16 AM EDTAssociated Order(s): Consult to Gynecology Gynecology Consult Note Patient Name: Ivon Jeetr : 2000 Consult to Gynecology Consult performed by: Ivon Marmolejo MD Consult ordered by: Ivana Loredo PA Subjective Subjective History of Present Illness: Ivon Jeter is a 24 y.o. with PUL being followed at [facility] who presents for RLQ pain. Patient reports that this is her first . She was having her beta hCG trended for pregnancyof unknown location, with the trend showing an inappropriate rise. Per [facility] records reviewed by ED MICHAEL, on 03/25/25 beta hCG was 568, down from 701. At this time patient received a dose of IM methotrexate. Yesterday morning/afternoon, patient reports that she had increased right lower quadrant/pelvic pain with associated nausea. At [facility] yesterday, beta hCG was found [...] - Patient with PUL being followed at [facility] - Beta hCG trend shown to be inappropriately rising > 03/17: 258 > 03/19: 276 > 03/20: 370 > 03/21: 342 > 03/24: 701 > 03/25: 568 -- Dose of methotrexate 03/25 -- > 03/27: 543 - Pt with increased RLQ pain 03/27 prompting her to present first to [facility] where beta was noted to have decreased slightly from 03/25. TVUS not directly reviewed, however records indicatea 1.5 cm unknown structure was seen in the R adnexa. - Patient was discharged home from [facility], but due to persistent pain [...] with patient that her beta hCG at [facility] today was encouraging. Explained that [...] Dispo: stable for discharge home from a SOCIAL INSURANCE ADVISER standpoint. Thank you for including us in the care of this patient. This consult was staffed with Dr. Bowers. Please message on-call SOCIAL INSURANCE ADVISER resident via [employer] Secure Chat or page [phone] (M-F 6a-6p) or [phone] (nights/weekends) for questions or concerns regarding this patient's care. Ivon Marmolejo MD PGY3 Obstetrics and Gynecology [1] Past Medical History: Diagnosis Date Other specified health status No pertinent past medical history [2] Past Surgical History: Procedure Laterality Date DENTAL SURGERY N/A Dental surgery from [facility] TONSILLECTOMY N/A Tonsillectomy from [facility] [3] Family History Problem Relation Name Age [...] SOA, and urinary symptoms. Medical records from [facility] reviewed: 03/26/2025 -- HCG trends recorded (03/17 -- 258, 03/19--276. 03/20--370. 03/21--342. 03/24--701. 03/25--568.), documented a 1gm Methotrexate given IM on 03/25/2025. 03/27/2025 -- TVUS with1.5cm unknown structure in the right adenxa, 03/27 -- HCG 543. History provided by: Patient certified court interpreter used: No Patient History Past Medical [...] does not include homicidal or suicidal ideation. [place] Coma Scale Score: 15 ED Course & [...] Abnormality Status --------- ------ ED HIV 1/2 Antibody/Anti...[[id number]] Normal Final result Please view results for [...] 11:57 PM MDM: Patient seen by the [facility] physician and followed-up by myself. In summary: NARRATIVE: Patient is a 24-year-old female who presents with complaints of diffuse right-sided abdominal discomfort. Has been seen multiple times at [facility] and had HCGs done. Has not had an appropriate doubling. Was given a dose of IM methotrexate a couple of days ago. Had an ult rasound done earlier today which did still document a 1.5 cm mass in the right adnexa and hCG in the mid 500s. Patient otherwise had a reassuring exam and H&H and was discharged for outpatient gynecology teacher follow-up. Was offered some hydroxyzine at that time, but deferred. Patient presented to our ER for 2nd opinion of her own accord. H&H stable. HCG still in the 600range. Transvaginal ultrasound does not note a right adnexal mass at this time. Given unclear hCG trend and patient concern, gynecology teacher was consulted. Patient signed out pending final gynecology teacher recommendations. Clinical Impressions as of 03/28/2533 of [...] mg Oral Given Ivana Loredo PA-C EMR Dragon/Coal Shoveler disclaimer: Much of this encounter note is an electronic statistical methods professor of spoken language to printed text. Electronic statistical methods professor of spoken language may permit erroneous, or [...] as able. Please increase your water intake. [place] use of warm and/or cold compresses. Primary [...] here is available to you via the [employer] Internet portal. Please make sure that you are registered for access to this. Disposition Discharge AVS ([place]ua [place] Guinean Snapshot) - Printed 03/28/2025 Follow-Ups Go to Sarika Moyer APRN; As needed Follow up with [facility] Obstetrics & Gynecology (Obstetrics and Gynecology) [...] Initial Obstetrics & Gynecology [address] [place] [address] Chiki Cardenas MD [address] [place] [address] documented as of this encounter [...] 1/2 Differentiation (03/27/2025 8:31 PM EDT) Pathologist [facility] Emergency Department HIV 1 & 2 Antibody/Antigen Screen Non Reactive Non Reactive 03/27/2025 9:26 PM EDT [facility] Comment:Screening for HIV 1 & 2 antibodies, and P24 antigen is NONREACTIVE. No confirmatory testing is required. Blood Venous blood specimen / Unknown Venipuncture / Unknown 03/27/2025 8:31 PM EDT 03/27/2025 8:44 PM EDT Rose Cortes MD LAB BLOOD ORDERABLES Final Resu lt [facility] [address] [place] [address] * Hepatitis C Antibody - ED (03/27/2025 8:31 PM EDT) Hepatitis C Antibody Negative Negative 03/27/2025 9:26 PM EDT [facility] Blood Venous blood specimen / Unknown Venipuncture / Unknown 03/27/2025 8:31 PM EDT 03/27/2025 8:44 PM EDT Rose Cortes MD LAB BLOOD ORDERABLES Final Resu lt Performing Organization Address City/[facility]/ZIP Co de Phone Number [facility] [address] [place] [address] * Type and screen (03/27/2025 8:31 PM [...] Result Performing Organization Address [facility] de Phone Number BLOOD BANK [address] [place] [address] * (ABNORMAL) hCG, quantitative, (03/27/2025 8:31 PM EDT) hCG, Total Beta 626.2(H) <5 mIU/mL 03/27/2025 9:22 PM EDT [facility] Blood Venous blood specimen / Unknown Venipuncture / Unknown 03/27/2025 8:31 PM EDT 03/27/2025 8:41 PM EDT Narrative [facility] - 03/27/2025 9:22 PM EDT [...] MD LAB BLOOD ORDERABLES Final Resu lt [facility] [address] [place] [address] * (ABNORMAL) CBC w/diff (03/27/2025 8:31 PM EDT) WBC Count 11.76(H) 3.70 - 10.30 10*3/uL LAB HEMATOLOGY METHOD 03/27/2025 8:44 PM EDT [facility] RBC Count 4.82 3.90 - 5.20 10*6/uL LAB HEMATOLOGY METHOD 03/27/2025 8:44 PM EDT [facility] HGB 14.2 11.2 - 15.7 g/dL LAB HEMATOLOGY METHOD 03/27/2025 8:44 PM EDT [facility] HCT 39.9 34.0 - 45.0 % LAB HEMATOLOGY METHOD 03/27/2025 8:44 PM EDT [facility] Platelet Count 523(H) 155 - 369 10*3/uL LAB HEMATOLOGY METHOD 03/27/2025 8:44 PM EDT [facility] MCV 83 79 - 98 fL LAB HEMATOLOGY METHOD 03/27/2025 8:44 PM EDT [facility] MCH 29.5 26.0 - 32.0 pg LAB HEMATOLOGY METHOD 03/27/2025 8:44 PM EDT [facility] MCHC 35.6(H) 30.7 - 35.5 g/dL LAB HEMATOLOGY METHOD 03/27/2025 8:44 PM EDT [facility] RDW 12.2 11.5 - 14.5 % LAB HEMATOLOGY METHOD 03/27/2025 8:44 PM EDT [facility] MPV 9.3 8.8 - 12.5 fL LAB HEMATOLOGY METHOD 03/27/2025 8:44 PM EDT [facility] nRBC 0.0 <=0.0 per 100 WBCs LAB HEMATOLOGY METHOD 03/27/2025 8:44 PM EDT [facility] Differential Type Automated LAB HEMATOLOGY METHOD 03/27/2025 8:44 PM EDT [facility] Neutrophils % 71 % LAB HEMATOLOGY METHOD 03/27/2025 8:44 PM EDT [facility] Lymphocytes % 25 % LAB HEMATOLOGY METHOD 03/27/2025 8:44 PM EDT [facility] Monocytes % 4 % LAB HEMATOLOGY METHOD 03/27/2025 8:44 PM EDT [facility] Eosinophils % 0 % LAB HEMATOLOGY METHOD 03/27/2025 8:44 PM EDT [facility] Basophils % 0 % LAB HEMATOLOGY METHOD 03/27/2025 8:44 PM EDT [facility] Immature Granulocytes % 0 % LAB HEMATOLOGY METHOD 03/27/2025 8:44 PM EDT [facility] Neutrophils Absolute 8.17(H) 1.60 - 6.10 10*3/uL LAB HEMATOLOGY METHOD 03/27/2025 8:44 PM EDT [facility] Lymphocytes Absolute 2.96 1.20 - 3.90 10*3/uL LAB HEMATOLOGY METHOD 03/27/2025 8:44 PM EDT [facility] Monocytes Absolute 0.52 0.30 - 0.90 10*3/uL LAB HEMATOLOGY METHOD 03/27/2025 8:44 PM EDT [facility] Eosinophils Absolute 0.03 0.00 - 0.50 10*3/uL LAB HEMATOLOGY METHOD 03/27/2025 8:44 PM EDT [facility] Basophils Absolute 0.05 0.00 - 0.10 10*3/uL LAB HEMATOLOGY METHOD 03/27/2025 8:44 PM EDT [facility] Immature Granulocytes Absolute 0.03 0.00 - 0.06 10*3/uL LAB HEMATOLOGY METHOD 03/27/2025 8:44 PM EDT [facility] Blood Venous blood specimen / Unknown Venipuncture / Unknown 03/27/2025 8:31 PM EDT 03/27/2025 8:41 PM EDT [facility] - 03/27/2025 8:44 PM EDT Therapeutic decision making should be based on absolute values, rather than percentages. us Rose Cortes MD LAB BLOOD ORDERABLES Final Resu lt [facility] [address] [place] [address] * (ABNORMAL) CMP (03/27/2025 8:31 PM EDT) Glucose, Plasma 96 74 - 99 mg/dL 03/27/2025 9:22 PM EDT [facility] BUN, Plasma 11 7 - 21 mg/dL 03/27/2025 9:22 PM EDT [facility] Creatinine, Plasma 0.48(L) 0.60 - 1.10 mg/dL 03/27/2025 9:22 PM EDT [facility] BUN/Creatinine Ratio 23 03/27/2025 9:22 PM EDT [facility] Sodium, Plasma 136 136 - 145 mmol/L 03/27/2025 9:22 PM EDT [facility] Potassium, Plasma 3.1(L) 3.6 - 4.9 mmol/L 03/27/2025 9:22 PM EDT [facility] Chloride, Plasma 100 97 - 107 mmol/L 03/27/2025 9:22 PM EDT [facility] CO2, Plasma 20(L) 22 - 29 mmol/L 03/27/2025 9:22 PM EDT [facility] Anion Gap 16 6 - 16 mmol/L 03/27/2025 9:22 PM EDT [facility] Total Calcium, Plasma 9.8 8.9 - 10.2 mg/dL 03/27/2025 9:22 PM EDT [facility] Total Protein 7.7 6.3 - 7.9 g/dL 03/27/2025 9:22 PM EDT [facility] Albumin, Plasma 4.9 3.5 - 5.2 g/dL 03/27/2025 9:22 PM EDT [facility] AST, Plasma 17 10 - 35 U/L 03/27/2025 9:22 PM EDT [facility] ALT, Plasma 8(L) 10 - 35 U/L 03/27/2025 9:22 PM EDT [facility] Alkaline Phosphatase, Plasma 102 35 - 104 U/L 03/27/2025 9:22 PM EDT [facility] Total Bilirubin, Plasma 1.3(H) 0.2 - 1.1 mg/dL 03/27/2025 9:22 PM EDT [facility] eGFRcr 137.5 mL/min/1.7 3m*2 03/27/2025 9:22 PM EDT [facility] Comment:Reported eGFRcr in m L/min/1.73m2 is based the CKD-EPI 2020 equation that does not use a race coefficient. Blood Venous blood specimen / Unknown Venipuncture / Unknown 03/27/2025 8:31 PM EDT 03/27/2025 8:41 PM EDT us Rose Cortes MD LAB BLOOD ORDERABLES Final Resu lt [facility] [address] [place] [address] documented in this encounter Visit Diagnoses Diagnosis [...] Foss) documented in this encounter Care Teams Engine Watchman Relationship Specialty Start Date End Date Sarika Moyer APRN [address] [place] [address] PCP - General 10/14/20 documented as of this encounter
--- OUTSIDE RECORDS SUMMARY | 2025-03-30 01:05 | XMS_ITS | Continuity of Care Document ---
Author Organization [facility] Phone Care Team Providers Care Paperboard Machine Operator Name Role Phone AARTI MCRAE Unavailable SHERRI DILLARD Primary Attending Unavailable SHERRI DILLARD Admitting Unavailable AARTI MCRAE Primary Care [phone] ALLERGIES AND ADVERSE REACTIONS ALLERGIES AND ADVERSE REACTIONS Code System Allergy Substance Adverse Reaction Date Reaction (Severity) Comment Status Reported By Updated By Lucia MALAGON (Free Text Allergy) Adverse reaction to substance Not Specified active [id number] on March 30, 2025 2:39:57 AM [place] 778187 RXNorm Lexapro Adverse reaction to substance Not Specified active [id number] on March 30, 2025 2:39:57 AM UT RESULTS Patient: GALILEA Easton Date of : 2000 9 LABORATORY RESULTS ORDER 100: URINALYSIS REFLEX MICROSCOPIC (LOINC: 77675-1) ORDER DATE: March 30, 2025 2:48:00 AM UTC Specimen Source: URINE Specimen Type: Urine specime n PERFORMING LAB: [address] [id number] Result Comment: Final Result Date: March 30, 2025 3:45:00 AM UTC (TECH: AY) LOINC TEST FLAG RESULT REFERENCE RANGE UPDA LESA BY 5778-6 Color of Urine N MONO YELLOW Octob 2024 3:45:00 AM UTC (TECH: AY) 5767-9 Appearance of Urine N HAZY CLEAR March 30, 2025 3:45:00 AM UTC (TECH: AY) 5792-7 Glucose [Mass/volume ] in Urine by Test strip N norm NORMAL March 30, 2025 3:45:00 AM UTC (TECH: AY) 20810-9 Bilirubin.total [Mass/volume] in Urine by Automated test strip 1 NEGATIVE March 30, 2025 3:45:00 AM UTC (TECH: AY) 5797-6 Ketones [Mass/volume ] in Urine by Test strip 50 NEGATIVE March 30, 2025 3:45:00 AM UTC (TECH: AY) 2965-2 Specific gravity of Urine H 1.025 1.016 - 1.022 March 30, 2025 3:45:00 AM UTC (TECH: AY) 05122-6 Erythrocytes [#/volume] in Urine by Automated test strip 250 NEGATIVE March 30, 2025 3:45:00 AM UTC (TECH: AY) 57886-8 pH of Urine by Automated test strip N 6 5 - 9 March 30, 2025 3:45:00 AM UTC (TECH: AY) 41093-2 Protein [Presence] i n Urine by Test strip N TNP NEGATIVE March 30, 2025 3:45:00 AM UTC (TECH: AY) 13445-5 Urobilinogen [Mass/volume] in Urine by Automated test strip 12 NORMAL March 30, 2025 3:45:00 AM UTC (TECH: AY) 55719-1 Nitrate [Presence] i n Urine N NEGATIVE NEGATIVE March 30, 2025 3:45:00 AM UTC (TECH: AY) 80406-4 Leukocytes [#/volume ] in Urine by Test strip 25 NEGATIVE March 30, 2025 3:45:00 AM UTC (TECH: AY) 83014-2 Urinalysis dipstick W Reflex Culture panel - Urine N NO March 30, 2025 3:45:00 AM UTC (TECH: AY) 88732-8 Erythrocytes [#/area ] in Urine sediment by Microscopy high power field N 1-5 NONE SEEN March 30, 2025 3:45:00 AM UTC (TECH: AY) 5821-4 Leukocytes [#/area] in Urine sediment by Microscopy high power field N 0-2 NONE SEEN March 30, 2025 3:45:00 AM UTC (TECH: AY) 32642-2 Epithelial cells.squamous [#/area] in Urine sediment by Microscopy high power field N 1-5 NONE SEEN March 30, 2025 3:45:00 AM UTC (TECH: AY) 5769-5 Bacteria [#/area] in Urine sediment by Microscopy high power field N TRACE NONE SEEN March 30, 2025 3:45:00 AM UTC (TECH: AY) 5817-2 Urate crystals [Presence] in Urine sediment by Light microscopy N FEW NONE SEEN March 30, 2025 3:45:00 AM UTC (TECH: AY) ORDER 200: HCG BETA QUANT (L OINC: 46840-2) ORDER DATE: March 30, 2025 2:48:00 AM UTC Specimen Source: PLASMA Specimen Type: Plasma specim en PERFORMING LAB: [address] [id number] Result Comment: Final Result Date: March 30, 2025 3:52:00 AM UTC (TECH: ME) LOINC TEST [place] [address]-0 Choriogonadotropin [Units/volume] in Serum or Plasma H 490 mIU/ml 0 mIU/ml - 5 mIU/ml March 30, 2025 3:52:00 AM UTC (TECH: ME) ORDER 300: CBC AUTO W DIFF ( LOINC: 66461-7) ORDER DATE: March 30, 2025 2:48:00 AM UTC Specimen Source: EDTA Specimen Type: Blood specime n with EDTA PERFORMING LAB: [address] [id number] Result Comment: Final Result Date: March 30, 2025 3:30:00 AM UTC (TECH: AY) LOINC TEST FLAG RESULT REFERENCE RANGE UPDA LESA BY 6690-2 Leukocytes [#/volume] in Blood by Automated count N 8.8 K/ul 4.0 K/ul - 10.5 K/ul March 30, 2025 3:30:00 AM UTC (TECH: AY) 789-8 Erythrocytes [#/volume] in Blood by Automated count N 4.9 M/mm3 4.2 M/mm3 - 6.4 M/mm3 March 30, 2025 3:30:00 AM UTC (TECH: AY) 718-7 Hemoglobin [Mass/volume] in Blood N 14.1 gm/dl 12.5 gm/dl - 16.0 gm/dl March 30, 2025 3:30:00 AM UTC (TECH: AY) 27469-8 Hematocrit [Volume Fraction] of Blood N 41.5 % 37.0 % - 47.0 % March 30, 2025 3:30:00 AM UTC (TECH: AY) 787-2 Erythrocyte mean corpuscular volume [Entitic volume] by Automated count N 84.9 fl 78 fl - 100 fl March 30, 2025 3:30:00 AM UTC (TECH: AY) 785-6 Erythrocyte mean corpuscular hemoglobin [Entitic mass] by Automated count N 28.8 pg 27 pg - 31 pg March 30, 2025 3:30:00 AM UTC (TECH: AY) 786-4 Erythrocyte mean corpuscular hemoglobin concentration [Mass/volume] by Automated count N 34.0 g/dl 32 g/dl - 36 g/dl March 30, 2025 3:30:00 AM UTC (TECH: AY) 94707-4 Erythrocyte distribution width [Ratio] N 12.3 % 11.5 % - 14.0 % March 30, 2025 3:30:00 AM UTC (TECH: AY) 777-3 Platelets [#/volume] in Blood by Automated count H 524 K/ul 150 K/ul - 450 K/ul March 30, 2025 3:30:00 AM UTC (TECH: AY) 66319-7 Platelet mean volume [Entitic volume] in Blood by Automated count N 9.1 fl 6 fl - 9.5 fl March 30, 2025 3:30:00 AM UTC (TECH: AY) 79405-7 Neutrophils/100 leukocytes in Blood N 56.5 % 43 % - 65 % March 30, 2025 3:30:00 AM UTC (TECH: AY) 736-9 Lymphocytes/100 leukocytes in Blood by Automated count N 35.8 % 20.5 % - 45.5 % March 30, 2025 3:30:00 AM UTC (TECH: AY) 5905-5 Monocytes/100 leukocytes in Blood by Automated count N 5.7 % 5.5 % - 11.7 % March 30, 2025 3:30:00 AM UTC (TECH: AY) 713-8 Eosinophils/100 leukocytes in Blood by Automated count N 1.3 % 0.9 % - 2.9 % March 30, 2025 3:30:00 AM UTC (TECH: AY) 706-2 Basophils/100 leukocytes in Blood by Automated count N 0.5 % 0.2 % - 1.0 % March 30, 2025 3:30:00 AM UTC (TECH: AY) 52779-8 Immature granulocytes/100 leukocytes in Blood by Automated count N 0.2 % 0.0 % - 0.8 % March 30, 2025 3:30:00 AM UTC (TECH: AY) 15164-5 Nucleated cells [#/volume] in Blood N 0.0 % March 30, 2025 3:30:00 AM UTC (TECH: AY) 20216-1 Neutrophils [#/volume] in Blood H 5.0 K/uL 2.2 K/uL - 4.8 K/uL March 30, 2025 3:30:00 AM UTC (TECH: AY) 731-0 Lymphocytes [#/volume] in Blood by Automated count H 3.2 CELL/MCL 1.3 CELL/MCL - 2.9 CELL/MCL March 30, 2025 3:30:00 AM UTC (TECH: AY) 742-7 Monocytes [#/volume] in Blood by Automated count N 0.5 CELL/MCL 0.3 CELL/MCL - 0.8 CELL/MCL March 30, 2025 3:30:00 AM UTC (TECH: AY) 711-2 Eosinophils [#/volume] in Blood by Automated count N 0.1 CELL/MCL 0 CELL/MCL - 0.2 CELL/MCL March 30, 2025 3:30:00 AM UTC (TECH: AY) 704-7 Basophils [#/volume] in Blood by Automated count N 0.0 CELL/MCL 0.0 CELL/MCL - 1.0 CELL/MCL March 30, 2025 3:30:00 AM UTC (TECH: AY) 83106-4 Immature granulocytes [#/volume] in Blood N 0.02 K/ul March 30, 2025 3:30:00 AM UTC (TECH: AY) 55756-8 Nucleated cells [#/volume] in Blood N 0.00 K/uL March 30, 2025 3:30:00 AM UTC (TECH: AY) 96075-1 Manual Differential panel - Blood N NO March 30, 2025 3:30:00 AM UTC (TECH: AY) ORDER 400: COMP METABOLIC PA RODRICK (LOINC: 45282-2) ORDER DATE: March 30, 2025 2:48:00 AM UTC Specimen Source: PLASMA Specimen Type: Plasma specim en PERFORMING LAB: [address] [id number] Result Comment: Final Result Date: March 30, 2025 3:43:00 AM UTC (TECH: ME) LOINC TEST FLAG RESULT REFERENCE RANGE UPDA LESA BY 2951-2 Sodium [Moles/volume ] in Serum or Plasma N 138 mmol/L 136 mmol/L - 145 mmol/L March 30, 2025 3:43:00 AM UTC (TECH: ME) 2823-3 Potassium [Moles/vol ume] in Serum or Plasma L 3.4 mmol/L 3.6 mmol/L - 5.0 mmol/L March 30, 2025 3:43:00 AM UTC (TECH: ME) 2075-0 Chloride [Moles/volu me] in Serum or Plasma N 102 mmol/L 98 mmol/L - 107 mmol/L March 30, 2025 3:43:00 AM UTC (TECH: ME) 2027-9 Carbon dioxide, tota l [Moles/volume] in Serum or Plasma N 27.2 mmol/L 21.0 mmol/L - 32.0 mmol/L March 30, 2025 3:43:00 AM UTC (TECH: ME) 18795-3 Anion gap in Blood N 12.2 O ctober 2024 3:43:00 AM UTC (TECH: ME) 2345-7 Glucose [Mass/volume ] in Serum or Plasma N 99 mg/dl 70 mg/dl - 120 mg/dl March 30, 2025 3:43:00 AM UTC (TECH: ME) 6299-2 Urea nitrogen [Mass/volume] in Blood N 10 mg/dL 7 mg/dL - 18 mg/dL Octobe r 2024 3:43:00 AM UTC (TECH: ME) 05387-9 Creatinine [Moles/vo lume] in Blood L 0.5 mg/dL 0.6 mg/dL - 1.3 mg/dL March 30, 2025 3:43:00 AM UTC (TECH: ME) 49578-4 Glomerular filtratio n rate/1.73 sq M.predicted by Creatinine-based formula (MDRD) N 136 mlpermin 60 mlpermin March 30, 2025 3:43:00 AM [facility] (TECH: Epicsell) 78034-0 Osmolality of Serum or Plasma by calculated by sum of electrolytes N 286 mosm/kg 275 mosm/kg - 301 mosm/kg March 30, 2025 3:43:00 AM [facility] (TECH: Epicsell) 2885-2 Protein [Mass/volume ] in Serum or Plasma N 8.0 g/dl 6.4 g/dl - 8.2 g/dl March 30, 2025 3:43:00 AM [facility] (TECH: Epicsell) 1751-7 Albumin [Mass/volume ] in Serum or Plasma N 4.5 g/dl 3.4 g/dl - 5.0 g/dl March 30, 2025 3:43:00 AM [facility] (TECH: [employer]ell) 2336-6 Globulin [Mass/volum e] in Serum N 3.5 March 30, 2025 3:43:00 AM [facility] (TECH: [employer]ell) 1759-0 Albumin/Globulin [Ma ss Ratio] in Serum or Plasma N 1.3 0.7 - 2 Octobe 2024 3:43:00 AM [facility] (TECH: Epicsell) 08961-0 Calcium [Mass/volume ] in Serum or Plasma N 9.6 mg/dl 8.5 mg/dl - 10.5 mg/dl March 30, 2025 3:43:00 AM [facility] (TECH: [employer]ell) 1975-2 Bilirubin.total [Mass/volume] in Serum or Plasma N 0.90 mg/dL 0.10 mg/dL - 1.00 mg/dL March 30, 2025 3:43:00 AM [facility] (TECH: [employer]) 1920-8 Aspartate aminotransferase [Enzymatic activity/volume] in Serum or Plasma N 15 U/L 0 U/L - 37 U/L March 30, 2025 3:43:00 AM [facility] (TECH: [employer]) 1742-6 Alanine aminotransfe rase [Enzymatic activity/volume] in Serum or Plasma N 13 U/L 0 U/L - 65 U/L March 30, 2025 3:43:00 AM [facility] (TECH: Epicsell) 6768-6 Alkaline phosphatase [Enzymatic activity/volume] in Serum or Plasma N 99 U/L 46 U/L - 116 U/L March 30 3:43:00 AM [facility] (TECH: MT) LABORATORY NARRATIVE RESULTS Information is not available RADIOLOGY RESULTS Information is not available PATHOLOGY NARRATIVE RESULTS Information is not available MICROBIOLOGY RESULTS No Micro Labs/Results Exist for Patient BLOOD ADMIN RESULTS Information is not available MEDICATIONS HOME MEDICATIONS Status RXNORM NDC Medication Dose Route Frequency Dates Comments Reported By Updated By Active 107992 95185 37925 1 atorvastatin 80 mg tablet 0.0 ORAL BEDTIME Last Dose: [id number] on March 30, 2025 2:39:57 AM [facility] Active FreeT extMe d Cardizem oral 240mg 0.0 DAILY Last Dose: [id number] on March 30, 2025 2:39:57 AM [facility] Active 5424983 93359 55749 8 Eliquis 5 mg tablet 1.0 TAB ORAL DAILY Last Dose: [id number] on March 30, 2025 2:39:58 AM [facility] Active 911672 86305 96947 0 losartan 25 mg tablet 1.0 TAB ORAL DAILY Last Dose: [id number] on March 30, 2025 2:39:58 AM [facility] DISCHARGE MEDICATIONS Status RXNORM NDC Medication Dose [...] Effective Dates Offered Cessation Comment Updated By [id number] Current Tobacco smoking status Unknown If Ever Smoked [id number] on March 30, 2025 2:40:04 AM [facility] [id number] Historical Tobacco smoking status Current Every Day Smoker [id number] on August 01, 2024 8:52:23 AM [facility] SOCIAL HISTORY - Gender Sex: Female SOCIAL HISTORY - Status : status i nformation is not available Intention in Next Year: intention information is not available SOCIAL HISTORY - Assessments Code System Description Status Date Value of Assessment Updated By Comment Assessment Information is no t available SOCIAL HISTORY - Pauma Affiliation Pauma information is not av ailable SOCIAL HISTORY [...] for each vital sign as of March 30, 2025 5:05:03 AM UTC Loinc Code Vital Sign Activity Date Result Updated By 8302-2 Body height March 30, 2025 2:37:37 AM UTC 144.78 cm (57.0 in) [id number] on March 30, 2025 2:37:37 AM UTC 65385-1 Body mass index (BMI ) [Ratio] March 30, 2025 2:37:37 AM UTC 20.8 kg/m2 3140-1 Body Surface Area Derived From Formula March 30, 2025 2:37:37 AM UTC 1.3172 m2 8310-5 Body temperature March 30 3:00:00 AM UTC 97.4 [degF] 68058-2 Body weight Measured March 30, 2025 2:37:37 AM UTC 43.6 kg (96.0 lb) [id number] on March 30, 2025 2:37:37 AM UTC 8462-4 Diastolic blood pressure March 30, 2025 2:34:00 AM UTC 82.0 mm[Hg] 8867-4 Heart rate March 30, 2025 3:00:00 AM UTC 78 /min 09364-8 Oxygen saturation in Arterial blood by Pulse oximetry March 30, 2025 3:00:00 AM UTC 98.0 % 9279-1 Respiratory rate March 30 3:00:00 AM UTC 18 /min 8480-6 Systolic blood pressure March 30, 2025 2:34:00 AM UTC 125.0 mm[Hg] PEDIATRIC GROWTH CHART - VITAL SIGNS [...] available. ENCOUNTERS ENCOUNTER INFORMATION Reason for Visit RT SIDE PAIN (DX ECT OPIC PREG) Admission March 30, 2025 2:15:00 [address] [place] [place] [address] Discharge March 30, 2025 4:05:00 AM UTC DISCHARGED TO HOME OR SELF CARE ENCOUNTER DIAGNOSES Notes information is not clemente ilable. Code System Diagnosis Onset Date Diagnosis information is not available. ABSTRACT DIAGNOSES Code System Diagnosis Updated By Abatement Date Abstract Diagnosis informati on is not available. CARE TEAM Care Paperboard Machine Operator Role AARTI MCRAE Referring SHERRI DILLARD Primary Attending SHERRI DILLARD Admitting AARTI MCRAE Primary Care CARE TEAM CARE paper twister Role on Team Location Telecom Status Start Date End Nickolas e Updated By CLEMENTINA Alarcon Referring normal March 30, 2025 2:42:18 AM UTC March 30, 2025 4:05:00 AM UTC [id number] on March 30, 2025 2:42:18 AM UTC NISHANT RAMOS Attending normal March 30, 2025 2:42:18 AM UTC March 30, 2025 4:05:00 AM UTC [id number] on March 30, 2025 2:42:18 AM UTC NISHANT RAMOS Admitting normal March 30, 2025 2:42:18 AM UTC March 30, 2025 4:05:00 AM UTC [id number] on March 30, 2025 2:42:18 AM UTC CLEMENTINA Alarcon PCP normal March 30, 2025 2:16:38 AM UTC March 30, 2025 4:05:00 AM UTC [id number] on March 30, 2025 2:42:18 AM UTC
[2025-03-30 17:23] VITALS: BP 158/88; PULSE 103; RESP 24; TEMP 37.1; O2SAT 100; BMI 21.6
--- OUTSIDE RECORDS SUMMARY | 2025-03-30 17:41 | XMS_ITS | Encounter Summary ---
Author Organization [facility] Address [address] [id number] Care Team Providers Care Tab Cutting Machine Operator Name Role Phone Sarika Moyer VAT OVERHAULER Primary Care Provider + Encounter Details Date [...] EST Initial [facility] [address] [place] [address] Chiki Cardenas MD [address] [place] [address] documented as of this encounter Visit Diagnoses Not on filedocumented in this encounter Care Teams Tab Cutting Machine Operator Relationship Specialty Start Date End Date Sarika Moyer, VAT OVERHAULER [address] [place] [address] PCP - General 10/14/20 documented as of this encounter
--- OUTSIDE RECORDS SUMMARY | 2025-03-30 17:41 | XMS_ITS | Clinical Summary ---
Author Organization Healthcare Address [address] [id number] Care Team Providers Care Induction Machine Setter Name Role Phone Sarika Moyer MOTORCYCLE DESIGNER Primary Care Provider + Allergies Active Allergy Reactions Criticality Noted Date Comments Escitalopram Anaphylaxis High 03/27/2025 Robitussin Dm Max Day-Night Anxiety Low 03/27/20 Medications No known medications Active Problems Comments Yes No known active problems Encounters Date Type Department Care Team Description 03/27/2025 8:35 PM EDT - 03/28/2025 1:22 AM EDT Emergency [facility] Emergency Department [address] [place] [address] Rose Cortes MD of unknown anatomic location (Primary Dx) Discharge Disposition: Home or Self Care 03/27/2025 Travel 03/17/2025 Telephone Obstetrics & Gynecology [address] [place] [phone] Chiki Cardenas MD from Last 3 [...] Initial Obstetrics & Gynecology [address] [place] [address] Chiki Cardenas MD [address] [place] [address] Health Maintenance Due Date Last Done Comments [facility]-Depression Screening 2002 [facility]-Infant/Child/Adol SDOH Screenings 2002 [facility]- SDOH Screenings 2020 [facility]-Adult SDOH Screenings 2020 [facility]-Pap Smear 2023 [facility]-DTaP,Tdap,and Td Vaccines (7 - Td or Tdap) 10/19/2024 10/19/2014, 05/21/2006, 08/26/2003, Additional history exists [id number] Vaccine ( - season) 2025 [facility]-Influenza Vaccine [...] on 03/27/2025 11:57 PM [address] [facility] US PROCEDURES Final Result * ED HIV 1/2 Antibody/Antigen Screen w/Reflex to HIV 1/2 Differentiation (03/27/2025 8:31 PM EDT) HIV 1 & 2 Antibody/Antigen Screen Non Reactive Non Reactive 03/27/2025 9:26 PM EDT [facility] Comment:Screening for HIV 1 & 2 antibodies, and P24 antigen is NONREACTIVE. No confirmatory testing is required. Blood Venous blood specimen / Unknown Venipuncture / Unknown 03/27/2025 8:31 PM EDT 03/27/2025 8:44 PM EDT Rose Cortes MD LAB BLOOD ORDERABLES Final Resu lt Performing Organization Address City/[facility]/ZIP Co de Phone Number [facility] [address] [place] [address] * Hepatitis C Antibody - ED (03/27/2025 8:31 PM EDT) Pathologist [facility] Hepatitis C Antibody Negative Negative 03/27/2025 9:26 PM EDT [facility] Blood Venous blood specimen / Unknown Venipuncture / Unknown 03/27/2025 8:31 PM EDT 03/27/2025 8:44 PM EDT Rose Cortes MD LAB BLOOD ORDERABLES Final Resu lt Performing Organization Address City/[facility]/ZIP Co de Phone Number [facility] [address] [place] [address] * (ABNORMAL) CBC w/diff (03/27/2025 8:31 PM EDT) [facility] WBC Count 11.76(H) 3.70 - 10.30 10*3/uL LAB HEMATOLOGY METHOD 03/27/2025 8:44 PM EDT [facility] RBC Count 4.82 3.90 - 5.20 10*6/uL LAB HEMATOLOGY METHOD 03/27/2025 8:44 PM EDT [facility] HGB 14.2 11.2 - 15.7 g/dL LAB HEMATOLOGY METHOD 03/27/2025 8:44 PM EDT [facility] HCT 39.9 34.0 - 45.0 % LAB HEMATOLOGY METHOD 03/27/2025 8:44 PM EDT [facility] Platelet Count 523(H) 155 - 369 10*3/uL LAB HEMATOLOGY METHOD 03/27/2025 8:44 PM EDT [facility] MCV 83 79 - 98 fL LAB HEMATOLOGY METHOD 03/27/2025 8:44 PM EDT [facility] MCH 29.5 26.0 - 32.0 pg LAB HEMATOLOGY METHOD 03/27/2025 8:44 PM EDT [facility] MCHC 35.6(H) 30.7 - 35.5 g/dL LAB HEMATOLOGY METHOD 03/27/2025 8:44 PM EDT [facility] RDW 12.2 11.5 - 14.5 % LAB HEMATOLOGY METHOD 03/27/2025 8:44 PM EDT [facility] MPV 9.3 8.8 - 12.5 fL LAB HEMATOLOGY METHOD 03/27/2025 8:44 PM EDT [facility] nRBC 0.0 <=0.0 per 100 WBCs LAB HEMATOLOGY METHOD 03/27/2025 8:44 PM EDT [facility] Differential Type Automated LAB HEMATOLOGY METHOD 03/27/2025 8:44 PM EDT [facility] Neutrophils % 71 % LAB HEMATOLOGY METHOD 03/27/2025 8:44 PM EDT [facility] Lymphocytes % 25 % LAB HEMATOLOGY METHOD 03/27/2025 8:44 PM EDT [facility] Monocytes % 4 % LAB HEMATOLOGY METHOD 03/27/2025 8:44 PM EDT [facility] Eosinophils % 0 % LAB HEMATOLOGY METHOD 03/27/2025 8:44 PM EDT [facility] Basophils % 0 % LAB HEMATOLOGY METHOD 03/27/2025 8:44 PM EDT [facility] Immature Granulocytes % 0 % LAB HEMATOLOGY METHOD 03/27/2025 8:44 PM EDT [facility] Neutrophils Absolute 8.17(H) 1.60 - 6.10 10*3/uL LAB HEMATOLOGY METHOD 03/27/2025 8:44 PM EDT [facility] Lymphocytes Absolute 2.96 1.20 - 3.90 10*3/uL LAB HEMATOLOGY METHOD 03/27/2025 8:44 PM EDT [facility] Monocytes Absolute 0.52 0.30 - 0.90 10*3/uL LAB HEMATOLOGY METHOD 03/27/2025 8:44 PM EDT [facility] Eosinophils Absolute 0.03 0.00 - 0.50 10*3/uL LAB HEMATOLOGY METHOD 03/27/2025 8:44 PM EDT [facility] Basophils Absolute 0.05 0.00 - 0.10 10*3/uL LAB HEMATOLOGY METHOD 03/27/2025 8:44 PM EDT [facility] Immature Granulocytes Absolute 0.03 0.00 - 0.06 10*3/uL LAB HEMATOLOGY METHOD 03/27/2025 8:44 PM EDT [facility] Blood Venous blood specimen / Unknown Venipuncture / Unknown 03/27/2025 8:31 PM EDT 03/27/2025 8:41 PM EDT Narrative [facility] - 03/27/2025 8:44 PM EDT Therapeutic decision making should be based on absolute values, rather than percentages. Rose Cortes MD LAB BLOOD ORDERABLES Final Resu lt [facility] [address] [place] [address] * Type and screen (03/27/2025 8:31 PM [...] TEST ORDERABLES Final Result Performing Organization Address [facility] de Phone Number BLOOD BANK [address] [place] [address], * (ABNORMAL) hCG, quantitative, (03/27/2025 8:31 PM EDT) hCG, Total Beta 626.2(H) <5 mIU/mL 03/27/2025 9:22 PM EDT [facility] Blood Venous blood specimen / Unknown Venipuncture / Unknown 03/27/2025 8:31 PM EDT 03/27/2025 8:41 PM EDT Narrative [facility] - 03/27/2025 9:22 PM [...] MD LAB BLOOD ORDERABLES Final Resu lt [facility] [address] [place] [address] * (ABNORMAL) CMP (03/27/2025 8:31 PM EDT) Glucose, Plasma 96 74 - 99 mg/dL 03/27/2025 9:22 PM EDT [facility] BUN, Plasma 11 7 - 21 mg/dL 03/27/2025 9:22 PM EDT [facility] Creatinine, Plasma 0.48(L) 0.60 - 1.10 mg/dL 03/27/2025 9:22 PM EDT [facility] BUN/Creatinine Ratio 23 03/27/2025 9:22 PM EDT [facility] Sodium, Plasma 136 136 - 145 mmol/L 03/27/2025 9:22 PM EDT [facility] Potassium, Plasma 3.1(L) 3.6 - 4.9 mmol/L 03/27/2025 9:22 PM EDT [facility] Chloride, Plasma 100 97 - 107 mmol/L 03/27/2025 9:22 PM EDT [facility] CO2, Plasma 20(L) 22 - 29 mmol/L 03/27/2025 9:22 PM EDT [facility] Anion Gap 16 6 - 16 mmol/L 03/27/2025 9:22 PM EDT [facility] Total Calcium, Plasma 9.8 8.9 - 10.2 mg/dL 03/27/2025 9:22 PM EDT [facility] Total Protein 7.7 6.3 - 7.9 g/dL 03/27/2025 9:22 PM EDT [facility] Albumin, Plasma 4.9 3.5 - 5.2 g/dL 03/27/2025 9:22 PM EDT [facility] AST, Plasma 17 10 - 35 U/L 03/27/2025 9:22 PM EDT [facility] ALT, Plasma 8(L) 10 - 35 U/L 03/27/2025 9:22 PM EDT [facility] Alkaline Phosphatase, Plasma 102 35 - 104 U/L 03/27/2025 9:22 PM EDT [facility] Total Bilirubin, Plasma 1.3(H) 0.2 - 1.1 mg/dL 03/27/2025 9:22 PM EDT [facility] eGFRcr 137.5 mL/min/1.7 3m*2 03/27/2025 9:22 PM EDT [facility] Comment:Reported eGFRcr in m L/min/1.73m2 is based the CKD-EPI 2020 equation that does not use a race coefficient. Blood Venous blood specimen / Unknown Venipuncture / Unknown 03/27/2025 8:31 PM EDT 03/27/2025 8:41 PM EDT us Rose Cortes MD LAB BLOOD ORDERABLES Final Resu lt [facility] [address] [place] [address] from Last 3 Months Insurance [facility] MEDICAID Care Teams Induction Machine Setter Relationship Specialty Start Date End Date Sarika Moyer APRN [address] [place], [place] [address] PCP - General 10/14/20
--- OUTSIDE RECORDS SUMMARY | 2025-03-30 17:42 | XMS_ITS | Encounter Summary ---
Author Organization [facility] Address [address] [id number] Care Team Providers Care Representative Phlebotomy Services Name Role Phone Sarika Moyer APRN Primary Care Provider + Encounter Details Date Type Department Care Team (Late Contact Info) Description 03/17/2025 Telephone Obstetrics & Gynecology [address] [place] [address] Chiki Cardenas MD [address] [place] [address] Social History Tobacco Use Types [...] Upcoming Encounters Date Type Department Care Team ([facility] Contact Info) Description 04/05/2025 8:15 AM EST Initial Obstetrics & Gynecology [address] [place] [address] Chiki Cardenas MD [address] [place] [phone] documented as of this encounter Visit Diagnoses Not on filedocumented in this encounter Care Teams Representative Phlebotomy Services Relationship Specialty Start Date End Date Sarika Moyer APRN [address] [facility] [place] [address] PCP - General 10/14/20 documented as of this encounter
--- NOTE | 2025-03-30 18:00 | ED_ITS ---
Discharge Plan Disposition Patient Disposition: Left Against Medical Advice Prescriptions Prescriptions: No Action hydroxyzine HCl 25 mg tablet 25 mg PO HS Qty: 30 0RF Referrals Follow up/Referrals: Provider,Referral, [Primary Care Provider, Medical] - See instructions Clinical Impressions Clinical Impression: Ectopic Instructions Patient Instructions: DI for Acute Abdominal Pain Print Language Print Language: Mongolian Discharge ED Provider: Jemma De Oliveira General Adult HPI General Chief complaint: Abdominal Pain Stated complaint: abdominal pain , back pain, fever Time Seen by Provider: 03/30/25 17:31 Mode of Arrival: Ambulatory Source of Information: Patient and Spouse Description of Symptoms (Recalled from ER Triage Doc. by RN): 6 days ago the pt was diagnosed with an ectopic in the ER. Pt states cramps have been significantly worse since she was seen, today they became unbearable. Pt states she has felt feverish and expresses high anxiety since the diagnosis. Pt is visibly anxious now. History of Present Illness HPI narrative: Patient is a 24-year-old female who is approximately 6 weeks by dates G1, P0 with a recent diagnosis of a possible ectopic she has had quantitative beta-hCG's they have been less than 1000 and not trending up appropriately and had a questionable mass in the adnexal region on the right side presumptively an ectopic she initiated methotrexate 6 days ago and has had some very mild bleeding and some abdominal discomfort. She came to the emergency department today after multiple recent ED visit she is very concerned tells me that she has been reading online that she could bleed to and this could acutely hemorrhage. Discomfort is minimal at the moment. Related Data Previous Rx's ?Medication ?Instructions ?Recorded hydroxyzine HCl 25 mg tablet 25 mg PO HS #30 tabs 03/04 09/25 Allergies Allergy/AdvReac Type Severity Reaction Status Date / Time dextromethorphan Allergy Unknown Verified 03/26/25 13:51 allergy reaction guaifenesin (From Robitussin) Allergy Unknown Verified 03/26/25 13:51 allergy reaction PFSH PFS Disclaimer: The information contained in this section may have been updated after the patient was seen, as this information can be updated by other users. Medical History (Updated 03/30/25 @ 18:03 by Jemma De Oliveira MD) No significant medical problems Surgical History (Updated 03/26/25 @ 13:56 by COREY Moffett) History of tonsillectomy and adenoidectomy H/O oral surgery Social History (Updated 03/26/25 @ 13:56 by COREY Moffett) Smoking Status: Current every day smoker tobacco type: e-cigarettes alcohol intake: never current occupational status: employed Travel in the last 8 weeks?: None household members: spouse Have you lived/traveled outside US in past 30 days?: No Contact w/someone who lives/traveled outside US past 30 days?: No Exposure to someone with infectious disease in past 14 days?: No Do you have a fever (greater than 100.4 F or 38 C)?: No Have you tested positive for COVID-19?: No Exposed to someone with COVID-19 in past 14 days?: No Do you have a sore throat?: No Do you have a cough?: No Do you have any weakness?: No Do you have any diarrhea?: No Are you experiencing any unusual bleeding?: No Do you have any muscle aches/pain?: No Do you have any abdominal pain?: No Are you experiencing loss of taste or smell?: No ROS Obtained: Yes All systems reviewed & no additional complaints except as documented Physical Exam General General appearance: alert and in no apparent distress Respiratory Respiratory exam: Present normal lung sounds bilaterally Cardiovascular Cardiovascular exam: Present regular rate and normal rhythm Abdominal Exam Abdominal exam: Present soft; Absent distention or tenderness Neurological Exam Neurological exam: Present alert and oriented X3 Medical Decision Making Medical Records Screening: Per USPSTF and CDC recommendations, given the prevalence of disease in our region, it is our hospital?s policy to screen for HIV and viral Hepatitis for all patients aged 18 and over and those with ongoing risk factors. Lucho Inquiry Pt receiving controlled substance: No Vital Signs: 03/30/25 17:23 Temperature 98.8 F Temperature Source Temporal Artery Scan Pulse Rate [Right] 103 H Respiratory Rate 24 Blood Pressure [Right Arm] 158/88 H Blood Pressure Mean [Right Arm] 111 Blood Pressure Source [Right Arm] Automatic Cuff Blood Pressure Position [Right Arm] Sitting 02 Sat by Pulse Oximetry 100 Oxygen Delivery Method Room Air Orders (Tests/Meds): ORDERS Category Date Time Status Type and Screen Stat BBK 03/30/25 17:51 Ordered POCUS Point of Care (ER Only) Stat Exams 03/30/25 17:33 Ordered Beta HCG, Quant [HCG,Quantitative] Stat Lab 03/30/25 17:52 Ordered CBC w/Auto Diff [Complete Blood Count Auto Diff] Stat Lab 03/30/25 17:51 Ordered CMP [Comprehensive Metabolic Panel] Stat Lab 03/30/25 17:51 Ordered US OB transvaginal Stat Ultrasound 03/30/25 17:51 Ordered Medical Decision Narrative: Very stable 24-year-old female with a presumptive diagnosis of an ectopic currently undergoing methotrexate therapy. Bedside ultrasound did not yield an intrauterine any significant free fluid in the abdomen or any large adnexal mass. I was attempting to get further workup including type and screen quantitative beta-hCG transvaginal ultrasound when patient decided to leave AMA. She does understand that this is associated with significant morbidity and mortality but wanted to leave AMA nonetheless she states she has an appointment tomorrow with Dr. Lee. Procedures Miscellaneous Procedure Procedure Performed: Limited OB ultrasound Indication: Abdominal pain Identified structures: [-Uterus -Left adnexa -Right adnexa -Pouch of Gomez] Findings: Uterus: No definitive IUP Right adnexa: No free fluid Left adnexa: No free for Cul de sac: No free fluid Impression: No evidence of IUP cannot rule out definitive ectopic Images or to permanent archive The study was technically adequate CPT Transabdominal: 34367-68 This study was performed by me, and I personally interpreted all images/videos. Based on my clinical judgement, these images were adequate and did not necessitate further imaging. Critical Care Critical Care Time Critical Care Time: No
--- NOTE | 2025-03-30 18:04 | PC.NURSE ---
Patient informed tech that she was wanting to sign out AMA. Advised Dr. De Oliveira that patient was wanting to sign out. Spoke with patient, she stated that she just wanted to go home and take Ibuprofen and tylenol and keep appointment with [employer] tomorrow and that she just gets anxious and needs to come to the ER for reassurance. Advised patient that ER is open all night and if she gets home and situation changes she is welcome to return. Patient verbalized understanding.
[2025-03-30 18:07] VITALS: BP 158/88; PULSE 103; RESP 24; TEMP 37.1; O2SAT 100
== END 2025-03-30 18:09 | disposition left against medical advice (07) ==
PROVIDERS: Emergency Provider Student in an Organized Health Care Education/Training Program
DX: O00.90 Unspecified ectopic pregnancy without intrauterine pregnancy (principal)
CPT/HCPCS: 99283

== ENCOUNTER 2025-03-31 09:01 | Outpatient (CLI) | payer OTHER, SELFPAY ==
--- OUTSIDE RECORDS SUMMARY | 2025-03-27 20:35 | XMS_ITS | Encounter Summary ---
Author Organization Healthcare Address [address] [place] [address] Care Team Providers Care College [employer] Department Head Name Role Phone Sarika Moyer ISAIAH Primary Care Provider + Reason for Visit * Reason Comments Pelvic Pain Encounter Details Date Type Department Care Team (Late st Contact Info) Description 03/27/2025 8:35 PM EDT - 03/28/2025 1:22 AM EDT Emergency [facility] Emergency Department [address] [place] [address] Rose Cortes MD [address] [place] [address] of unknown anatomic location (Primary Dx) Discharge [...] as able. Please increase your water intake. [place] use of warm and/or cold compresses. Primary [...] here is available to you via the [employer] portal. Please make sure that you [...] 24 y.o. with PUL being followed at [facility] who presents for RLQ pain. Patient reports that this is her first . She was having her beta hCG trended for pregnancyof unknown location, with the trend showing an inappropriate rise. Per [facility] [place] records reviewed by ED MICHAEL, on 03/25/25 beta hCG was 568, down from 701. At this time patient received a dose of IM methotrexate. Yesterday morning/afternoon, patient reports that she had increased right lower quadrant/pelvic pain with associated nausea. At [facility] [place] yesterday, beta hCG was found to be [...] - Patient with PUL being followed at [facility] - Beta hCG trend shown to be inappropriately rising > 03/17: 258 > 03/19: 276 > 03/20: 370 > 03/21: 342 > 03/24: 701 > 03/25: 568 -- Dose of methotrexate 03/25 -- > 03/27: 543 - Pt with increased RLQ pain 03/27 prompting her to present first to [facility] where beta was noted to have decreased slightly from 03/25. TVUS not directly reviewed, however records indicatea 1.5 cm unknown structure was seen in the R adnexa. - Patient was discharged home from [facility], but due to persistent pain presented to [...] with patient that her beta hCG at [facility] today was encouraging. Explained that often times [...] Dispo: stable for discharge home from a CARBONIZER TE[employer] standpoint. Thank you for including us in the care of this patient. This consult was staffed with Dr. Bowers. Please message on-call CARBONIZER TE[employer] resident via [employer] Chat or page [phone] (M-F 6a-6p) or [phone] (nights/weekends) for questions or concerns regarding this patient's care. Ivon Marmolejo MD PGY3 Obstetrics and Gynecology [1] Past Medical History: Diagnosis Date Other specified health status No pertinent past medical history [2] Past Surgical History: Procedure Laterality Date DENTAL SURGERY N/A Dental surgery from [facility] TONSILLECTOMY N/A Tonsillectomy from [facility] [3] Family History Problem Relation Name Age [...] SOA, and urinary symptoms. Medical records from [facility] reviewed: 03/26/2025 -- HCG trends recorded (03/17 -- 258, 03/19--276. 03/20--370. 03/21--342. 03/24--701. 03/25--568.), documented a 1gm Methotrexate given IM on 03/25/2025. 03/27/2025 -- TVUS with1.5cm unknown structure in the right adenxa, 03/27 -- HCG 543. History provided by: Patient automotive parts interpreter used: No Patient History Past Medical [...] does not include homicidal or suicidal ideation. [place] Coma Scale Score: 15 ED Course & [...] Abnormality Status --------- ------ ED HIV 1/2 Antibody/Anti...[[id number]] Normal Final result Please view results for [...] 11:57 PM MDM: Patient seen by the [facility] physician and followed-up by myself. In summary: NARRATIVE: Patient is a 24-year-old female who presents with complaints of diffuse right-sided abdominal discomfort. Has been seen multiple times at [facility] and had HCGs done. Has not had an appropriate doubling. Was given a dose of IM methotrexate a couple of days ago. Had an ult rasound done earlier today which did still document a 1.5 cm mass in the right adnexa and hCG in the mid 500s. Patient otherwise had a reassuring exam and H&H and was discharged for outpatient sizing machine operator follow-up. Was offered some hydroxyzine at that time, but deferred. Patient presented to our ER for 2nd opinion of her own accord. H&H stable. HCG still in the 600range. Transvaginal ultrasound does not note a right adnexal mass at this time. Given unclear hCG trend and patient concern, sizing machine operator was consulted. Patient signed out pending final sizing machine operator recommendations. Clinical Impressions as of 03/28/2533 of [...] mg Oral Given Ivana Loredo PA-C EMR Dragon/Guest Relations Officer disclaimer: Much of this encounter note is an electronic oyster grader of spoken language to printed text. Electronic oyster grader of spoken language may permit erroneous, or [...] as able. Please increase your water intake. [place] use of warm and/or cold compresses. Primary [...] here is available to you via the [employer] portal. Please make sure that you are registered for access to this. Disposition Discharge AVS (Somali Snapshot) - Printed 03/28/2025 Follow-Ups Go to Sarika Moyer APRN; As needed Follow up with [facility] Obstetrics & Gynecology (Obstetrics and Gynecology) [...] Initial Obstetrics & Gynecology [address] [place] [address] Chiki Cardenas MD [address] [place] [address] documented as of this encounter [...] Differentiation (03/27/2025 8:31 PM EDT) Pathologist [facility] HIV 1 & 2 Antibody/Antigen Screen Non Reactive Non Reactive 03/27/2025 9:26 PM EDT [facility] Comment:Screening for HIV 1 & 2 antibodies, and P24 antigen is NONREACTIVE. No confirmatory testing is required. Blood Venous blood specimen / Unknown Venipuncture / Unknown 03/27/2025 8:31 PM EDT 03/27/2025 8:44 PM EDT Rose Cortes MD LAB BLOOD ORDERABLES Final Resu lt [facility] [address] [place] [address] * Hepatitis C Antibody - ED (03/27/2025 8:31 PM EDT) Hepatitis C Antibody Negative Negative 03/27/2025 9:26 PM EDT [facility] Blood Venous blood specimen / Unknown Venipuncture / Unknown 03/27/2025 8:31 PM EDT 03/27/2025 8:44 PM EDT Rose Cortes MD LAB BLOOD ORDERABLES Final Resu lt Performing Organization Address City/[facility]/ZIP Co de Phone Number [facility] [address] [place] [address] * Type and screen (03/27/2025 8:31 PM [...] TEST ORDERABLES Final Result Performing Organization Address [facility] de Phone Number BLOOD BANK [address] [place] [address] * (ABNORMAL) hCG, quantitative, (03/27/2025 8:31 PM EDT) hCG, Total Beta 626.2(H) <5 mIU/mL 03/27/2025 9:22 PM EDT [facility] Blood Venous blood specimen / Unknown Venipuncture / Unknown 03/27/2025 8:31 PM EDT 03/27/2025 8:41 PM EDT Narrative [facility] - 03/27/2025 9:22 PM [...] MD LAB BLOOD ORDERABLES Final Resu lt [facility] [address] [place] [address] * (ABNORMAL) CBC w/diff (03/27/2025 8:31 PM EDT) WBC Count 11.76(H) 3.70 - 10.30 10*3/uL LAB HEMATOLOGY METHOD 03/27/2025 8:44 PM EDT [facility] RBC Count 4.82 3.90 - 5.20 10*6/uL LAB HEMATOLOGY METHOD 03/27/2025 8:44 PM EDT [facility] HGB 14.2 11.2 - 15.7 g/dL LAB HEMATOLOGY METHOD 03/27/2025 8:44 PM EDT [facility] HCT 39.9 34.0 - 45.0 % LAB HEMATOLOGY METHOD 03/27/2025 8:44 PM EDT [facility] Platelet Count 523(H) 155 - 369 10*3/uL LAB HEMATOLOGY METHOD 03/27/2025 8:44 PM EDT [facility] MCV 83 79 - 98 fL LAB HEMATOLOGY METHOD 03/27/2025 8:44 PM EDT [facility] MCH 29.5 26.0 - 32.0 pg LAB HEMATOLOGY METHOD 03/27/2025 8:44 PM EDT [facility] MCHC 35.6(H) 30.7 - 35.5 g/dL LAB HEMATOLOGY METHOD 03/27/2025 8:44 PM EDT [facility] RDW 12.2 11.5 - 14.5 % LAB HEMATOLOGY METHOD 03/27/2025 8:44 PM EDT [facility] MPV 9.3 8.8 - 12.5 fL LAB HEMATOLOGY METHOD 03/27/2025 8:44 PM EDT [facility] nRBC 0.0 <=0.0 per 100 WBCs LAB HEMATOLOGY METHOD 03/27/2025 8:44 PM EDT [facility] Differential Type Automated LAB HEMATOLOGY METHOD 03/27/2025 8:44 PM EDT [facility] Neutrophils % 71 % LAB HEMATOLOGY METHOD 03/27/2025 8:44 PM EDT [facility] Lymphocytes % 25 % LAB HEMATOLOGY METHOD 03/27/2025 8:44 PM EDT [facility] Monocytes % 4 % LAB HEMATOLOGY METHOD 03/27/2025 8:44 PM EDT [facility] Eosinophils % 0 % LAB HEMATOLOGY METHOD 03/27/2025 8:44 PM EDT [facility] Basophils % 0 % LAB HEMATOLOGY METHOD 03/27/2025 8:44 PM EDT [facility] Immature Granulocytes % 0 % LAB HEMATOLOGY METHOD 03/27/2025 8:44 PM EDT [facility] Neutrophils Absolute 8.17(H) 1.60 - 6.10 10*3/uL LAB HEMATOLOGY METHOD 03/27/2025 8:44 PM EDT [facility] Lymphocytes Absolute 2.96 1.20 - 3.90 10*3/uL LAB HEMATOLOGY METHOD 03/27/2025 8:44 PM EDT [facility] Monocytes Absolute 0.52 0.30 - 0.90 10*3/uL LAB HEMATOLOGY METHOD 03/27/2025 8:44 PM EDT [facility] Eosinophils Absolute 0.03 0.00 - 0.50 10*3/uL LAB HEMATOLOGY METHOD 03/27/2025 8:44 PM EDT [facility] Basophils Absolute 0.05 0.00 - 0.10 10*3/uL LAB HEMATOLOGY METHOD 03/27/2025 8:44 PM EDT [facility] Immature Granulocytes Absolute 0.03 0.00 - 0.06 10*3/uL LAB HEMATOLOGY METHOD 03/27/2025 8:44 PM EDT [facility] Blood Venous blood specimen / Unknown Venipuncture / Unknown 03/27/2025 8:31 PM EDT 03/27/2025 8:41 PM EDT [facility] - 03/27/2025 8:44 PM EDT Therapeutic decision making should be based on absolute values, rather than percentages. us Rose Cortes MD LAB BLOOD ORDERABLES Final Resu lt [facility] [address] [place] [address] * (ABNORMAL) CMP (03/27/2025 8:31 PM EDT) Glucose, Plasma 96 74 - 99 mg/dL 03/27/2025 9:22 PM EDT [facility] BUN, Plasma 11 7 - 21 mg/dL 03/27/2025 9:22 PM EDT [facility] Creatinine, Plasma 0.48(L) 0.60 - 1.10 mg/dL 03/27/2025 9:22 PM EDT [facility] BUN/Creatinine Ratio 23 03/27/2025 9:22 PM EDT [facility] Sodium, Plasma 136 136 - 145 mmol/L 03/27/2025 9:22 PM EDT [facility] Potassium, Plasma 3.1(L) 3.6 - 4.9 mmol/L 03/27/2025 9:22 PM EDT [facility] Chloride, Plasma 100 97 - 107 mmol/L 03/27/2025 9:22 PM EDT [facility] CO2, Plasma 20(L) 22 - 29 mmol/L 03/27/2025 9:22 PM EDT [facility] Anion Gap 16 6 - 16 mmol/L 03/27/2025 9:22 PM EDT [facility] Total Calcium, Plasma 9.8 8.9 - 10.2 mg/dL 03/27/2025 9:22 PM EDT [facility] Total Protein 7.7 6.3 - 7.9 g/dL 03/27/2025 9:22 PM EDT [facility] Albumin, Plasma 4.9 3.5 - 5.2 g/dL 03/27/2025 9:22 PM EDT [facility] AST, Plasma 17 10 - 35 U/L 03/27/2025 9:22 PM EDT [facility] ALT, Plasma 8(L) 10 - 35 U/L 03/27/2025 9:22 PM EDT [facility] Alkaline Phosphatase, Plasma 102 35 - 104 U/L 03/27/2025 9:22 PM EDT [facility] Total Bilirubin, Plasma 1.3(H) 0.2 - 1.1 mg/dL 03/27/2025 9:22 PM EDT [facility] eGFRcr 137.5 mL/min/1.7 3m*2 03/27/2025 9:22 PM EDT [facility] Comment:Reported eGFRcr in m L/min/1.73m2 is based the CKD-EPI 2020 equation that does not use a race coefficient. Blood Venous blood specimen / Unknown Venipuncture / Unknown 03/27/2025 8:31 PM EDT 03/27/2025 8:41 PM EDT us Rose Cortes MD LAB BLOOD ORDERABLES Final Resu lt [facility] [address] [place] [address] documented in this encounter Visit Diagnoses Diagnosis [...] Foss) documented in this encounter Care Teams [employer] Department Head Relationship Specialty Start Date End Date Sarika Moyer APRN [address] [place] [address] PCP - General 10/14/20 documented as of this encounter
--- NOTE | 2025-03-27 22:41 | PC.NURSE ---
Medical records sent to per Jemma Mancuso RN
--- OUTSIDE RECORDS SUMMARY | 2025-03-31 09:33 | XMS_ITS | Clinical Summary ---
Author Organization Healthcare Address [address] [id number] Care Team Providers Care Silk Screen Painter Name Role Phone Sarika Moyer FINAL COAT SPRAYER Primary Care Provider + Allergies Active Allergy Reactions Criticality Noted Date Comments Escitalopram Anaphylaxis High 03/27/2025 Robitussin Dm Max Day-Night Anxiety Low 03/27/20 Medications No known medications Active Problems Comments Yes No known active problems Encounters Date Type Department Care Team Description 03/27/2025 8:35 PM EDT - 03/28/2025 1:22 AM EDT Emergency [facility] Emergency Department [address] [place] [address] Rose Cortes MD of unknown anatomic location (Primary Dx) Discharge Disposition: Home or Self Care 03/27/2025 Travel 03/17/2025 Telephone Obstetrics & Gynecology [address] [place] [phone] Chiki Cardenas MD from Last 3 [...] 10/19/2024 10/19/2014, 05/21/2006, 08/26/2003, Additional history exists [id number] Vaccine ( - season) 2025 [facility]-Influenza Vaccine [...] on 03/27/2025 11:57 PM Rose Cortes MD [facility] [place] PROCEDURES Final Result * ED HIV [...] ORDERABLES Final Resu lt Performing Organization Address City/[facility]/ZIP Co de Phone Number [facility] [address] [place] [address] * Hepatitis C Antibody - ED (03/27/2025 8:31 PM EDT) Pathologist [facility] Hepatitis C Antibody Negative Negative 03/27/2025 9:26 PM EDT [facility] Blood Venous blood specimen / Unknown Venipuncture / Unknown 03/27/2025 8:31 PM EDT 03/27/2025 8:44 PM EDT Rose Cortes MD LAB BLOOD ORDERABLES Final Resu lt Performing Organization Address City/[facility]/ZIP Co de Phone Number [facility] [address] [place] [address] * (ABNORMAL) CBC w/diff (03/27/2025 8:31 PM EDT) [facility] WBC Count 11.76(H) 3.70 - 10.30 [...] lt [facility] [address] [place] [address] * Type and screen (03/27/2025 8:31 PM [...] Organization Address [facility] de Phone Number BLOOD BANK [address] [place] [address], * (ABNORMAL) hCG, quantitative, (03/27/2025 8:31 PM EDT) hCG, Total Beta 626.2(H) <5 mIU/mL 03/27/2025 9:22 PM EDT [facility] lt [facility] [address] [place] [address] * (ABNORMAL) CMP (03/27/2025 8:31 PM EDT) [...] lt [facility] [address] [place] [address] from Last 3 Months Insurance [facility] MEDICAID Care Teams Silk Screen Painter Relationship Specialty Start Date End Date Sarika Moyer APRN [address] [place], [place] [address] PCP - General 10/14/20
--- OUTSIDE RECORDS SUMMARY | 2025-03-31 09:33 | XMS_ITS | Encounter Summary ---
Author Organization [facility] Address [address] [phone] Care Team Providers Care Specialty Transformer Assembler Name Role Phone Sarika Moyer HAIR ASSISTANT Primary Care Provider + Encounter Details Date [...] EST Initial [facility] [address] [place] [address] Chiki Cardenas MD [address] [place] [address] documented as of this encounter Visit Diagnoses Not on filedocumented in this encounter Care Teams Specialty Transformer Assembler Relationship Specialty Start Date End Date Sarika Moyer, HAIR ASSISTANT [address] [place] [address] PCP - General 10/14/20 documented as of this encounter
--- OUTSIDE RECORDS SUMMARY | 2025-03-31 09:34 | XMS_ITS | Encounter Summary ---
Author Organization [facility] Address [address] [phone] Care Team Providers Care 1St Pressman Name Role Phone Sarika Moyer APRN Primary Care Provider + Encounter Details Date Type Department Care Team (Late Contact Info) Description 03/17/2025 Telephone Obstetrics & Gynecology [address] [place] [address] Chiki Cardenas MD [address] [place] [address] Social History Tobacco Use Types [...] Upcoming Encounters Date Type Department Care Team ([facility] Contact Info) Description 04/05/2025 8:15 AM EST Initial Obstetrics & Gynecology [address] [place] [address] Chiki Cardenas MD [address] [place] [phone] documented as of this encounter Visit Diagnoses Not on filedocumented in this encounter Care Teams [address] Relationship Specialty Start Date End Date Sarika Moyer APRN [address] [facility] [place] [address] PCP - General 10/14/20 documented as of this encounter
== END 2025-03-31 23:59 | disposition home or self-care (01) ==
LOC: LAB 09:01
PROVIDERS: PCP Nurse Practitioner Family; Visit Provider Obstetrics & Gynecology
DX: O00.90 Unspecified ectopic pregnancy without intrauterine pregnancy (principal)
CPT/HCPCS: 36415; 84702

== ENCOUNTER 2025-04-02 10:47 | Emergency (ER) | payer OTHER, SELFPAY ==
--- OUTSIDE RECORDS SUMMARY | 2025-03-27 20:35 | XMS_ITS | Encounter Summary ---
Author Organization Healthcare Address [address] [place] [address] Care Team Providers Care Food Service Driver Name Role Phone Sarika Moyer ISAIAH Primary Care Provider + Reason for Visit * Reason Comments Pelvic Pain Encounter Details Date Type Department Care Team (Late st Contact Info) Description 03/27/2025 8:35 PM EDT - 03/28/2025 1:22 AM EDT Emergency [facility] Emergency Department [address] [place] [address] Rose Cortes MD [address] [place] [address] of unknown anatomic location (Primary Dx) Discharge [...] Indicated 03/28/2025 12:11 AM EDT John Fu * Question Answer Date of Assessment Author 1. Wish to be (Past 1 Month) No 025 12:11 AM EDT John Foss 2. Non-Specific Active Suici olegario Thoughts (Past 1 Month) No 03/28/2025 12:11 AM EDT Di Foss 6. Suicidal Behavior (Lifetime) No 12:11 AM EDT John Foss documented as of this encounter Discharge Instructions * Discharge Instructions* Larry Enrique APRN - 03/28/2025 1:16 AM EDT It is recommended that you follow-up with your primary care specialty care providers for further outpatient evaluation and treatment recommendations. You if you choose to do so, you may also follow-up with OBGYN services or further outpatient evaluation and treatment recommendations. Rest and recover as able. Please increase your water intake. [place] use of warm and/or cold compresses. Primary [...] here is available to you via the [employer] Internet portal. Please make sure that you are registered for access to this. documented in this encounter Miscellaneous Notes * Consults - Ivon Marmolejo MD - 03/28/2025 1:16 AM EDTAssociated Order(s): Consult to Gynecology Gynecology Consult Note Patient Name: Ivon Jeter : 2000 Consult to Gynecology Consult performed by: Ivon Marmolejo MD Consult ordered by: Ivana Loredo PA Subjective Subjective History of Present Illness: Ivon Jeter is a 24 y.o. with PUL being followed at [facility] who presents for RLQ pain. Patient reports that this is her first . She was having her beta hCG trended for pregnancyof unknown location, with the trend showing an inappropriate rise. Per [facility] records reviewed by ED MICHAEL, on 03/25/25 beta hCG was 568, down from 701. At this time patient received a dose of IM methotrexate. Yesterday morning/afternoon, patient reports that she had increased right lower quadrant/pelvic pain with associated nausea. At [facility] yesterday, beta hCG was found [...] - Patient with PUL being followed at [facility] - Beta hCG trend shown to be inappropriately rising > 03/17: 258 > 03/19: 276 > 03/20: 370 > 03/21: 342 > 03/24: 701 > 03/25: 568 -- Dose of methotrexate 03/25 -- > 03/27: 543 - Pt with increased RLQ pain 03/27 prompting her to present first to [facility] where beta was noted to have decreased slightly from 03/25. TVUS not directly reviewed, however records indicatea 1.5 cm unknown structure was seen in the R adnexa. - Patient was discharged home from [facility], but due to persistent pain [...] with patient that her beta hCG at [facility] today was encouraging. Explained that [...] Dispo: stable for discharge home from a TUBE LASER OPERATOR standpoint. Thank you for including us in the care of this patient. This consult was staffed with Dr. Bowers. Please message on-call TUBE LASER OPERATOR resident via [employer] Secure Chat or page [phone] (M-F 6a-6p) or [phone] (nights/weekends) for questions or concerns regarding this patient's care. Ivon Marmolejo MD PGY3 Obstetrics and Gynecology [1] Past Medical History: Diagnosis Date Other specified health status No pertinent past medical history [2] Past Surgical History: Procedure Laterality Date DENTAL SURGERY N/A Dental surgery from [facility] TONSILLECTOMY N/A Tonsillectomy from [facility] [3] Family History Problem Relation Name Age [...] SOA, and urinary symptoms. Medical records from [facility] reviewed: 03/26/2025 -- HCG trends recorded (03/17 -- 258, 03/19--276. 03/20--370. 03/21--342. 03/24--701. 03/25--568.), documented a 1gm Methotrexate given IM on 03/25/2025. 03/27/2025 -- TVUS with1.5cm unknown structure in the right adenxa, 03/27 -- HCG 543. History provided by: Patient lang interpreter used: No Patient History Past Medical [...] does not include homicidal or suicidal ideation. [place] Coma Scale Score: 15 ED Course & [...] Abnormality Status --------- ------ ED HIV 1/2 Antibody/Anti...[[id number]] Normal Final result Please view results for [...] 11:57 PM MDM: Patient seen by the [facility] physician and followed-up by myself. In summary: NARRATIVE: Patient is a 24-year-old female who presents with complaints of diffuse right-sided abdominal discomfort. Has been seen multiple times at [facility] and had HCGs done. Has not had an appropriate doubling. Was given a dose of IM methotrexate a couple of days ago. Had an ult rasound done earlier today which did still document a 1.5 cm mass in the right adnexa and hCG in the mid 500s. Patient otherwise had a reassuring exam and H&H and was discharged for outpatient bell hole digger follow-up. Was offered some hydroxyzine at that time, but deferred. Patient presented to our ER for 2nd opinion of her own accord. H&H stable. HCG still in the 600range. Transvaginal ultrasound does not note a right adnexal mass at this time. Given unclear hCG trend and patient concern, bell hole digger was consulted. Patient signed out pending final bell hole digger recommendations. Clinical Impressions as of 03/28/2533 of [...] mg Oral Given Ivana Loredo PA-C EMR Dragon/Engine Repairer disclaimer: Much of this encounter note is an electronic fire engine pump operator of spoken language to printed text. Electronic fire engine pump operator of spoken language may permit erroneous, [...] provider: Kali Loredo PA-C Transferring attending: Dr. Sebastian JUAN C Time: 00:30 I received sign-out [...] as able. Please increase your water intake. [place] use of warm and/or cold compresses. Primary [...] here is available to you via the [employer] Internet portal. Please make sure that you are registered for access to this. Disposition Discharge AVS (Djiboutian Snapshot) - Printed 03/28/2025 Follow-Ups Go to Sarika Moyer APRN; As needed Follow up with [facility] Obstetrics & Gynecology (Obstetrics and [...] AM EST Initial Obstetrics & Gynecology [address] [place] [address] Chiki Cardenas MD [address] [place] [address] documented as of this encounter Procedures Procedure [...] Lelia Lacy MD on 03/27/2025 11:57 PM Rose Cortes MD IMG US PROCEDURES Final Result * ED HIV 1/2 Antibody/Antigen Screen w/Reflex to HIV 1/2 Differentiation (03/27/2025 8:31 PM EDT) Pathologist [facility] HIV 1 & 2 Antibody/Antigen Screen Non Reactive Non Reactive 03/27/2025 9:26 PM EDT [facility] Comment:Screening for HIV 1 & 2 antibodies, and P24 antigen is NONREACTIVE. No confirmatory testing is required. Blood Venous blood specimen / Unknown Venipuncture / Unknown 03/27/2025 8:31 PM EDT 03/27/2025 8:44 PM EDT Rose Cortes MD LAB BLOOD ORDERABLES Final Resu lt [facility] [address] [place] [address] * Hepatitis C Antibody - ED (03/27/2025 8:31 PM EDT) Hepatitis C Antibody Negative Negative 03/27/2025 9:26 PM EDT [facility] Blood Venous blood specimen / Unknown Venipuncture / Unknown 03/27/2025 8:31 PM EDT 03/27/2025 8:44 PM EDT Rose Cortes MD LAB BLOOD ORDERABLES Final Resu lt Performing Organization Address City/[facility]/ZIP Co de Phone Number [facility] [address] [place] [address] * Type and screen (03/27/2025 8:31 PM [...] TEST ORDERABLES Final Result Performing Organization Address [facility] de Phone Number BLOOD BANK [address] [place] [address] * (ABNORMAL) hCG, quantitative, (03/27/2025 8:31 PM EDT) hCG, Total Beta 626.2(H) <5 mIU/mL 03/27/2025 9:22 PM EDT [facility] Blood [...] lt [facility] [address] [place] [address] * (ABNORMAL) CBC w/diff (03/27/2025 8:31 PM [...] 8:31 PM EDT 03/27/2025 8:[address] [facility] - 03/27/2025 8:44 PM EDT Therapeutic decision making should be based on absolute values, rather than percentages. us Rose Cortes MD LAB BLOOD ORDERABLES Final Resu lt [facility] [address] [place] [address] * (ABNORMAL) CMP (03/27/2025 8:31 PM EDT) [...] Resu lt [facility] [address] [place] [address] documented in this encounter Visit Diagnoses Diagnosis [...] Foss) documented in this encounter Care Teams Food Service Driver Relationship Specialty Start Date End Date Sarika Moyer APRN [address] [place] [address] PCP - General 10/14/20 documented as of this encounter
--- OUTSIDE RECORDS SUMMARY | 2025-04-01 03:53 | XMS_ITS | Continuity of Care Document ---
Author Organization [facility] Phone Care Team Providers Care Brand Development Manager Name Role Phone AARTI MCRAE Unavailable SHERRI DILLARD Primary Attending Unavailable SHERRI DILLARD Admitting Unavailable AARTI MCRAE Primary Care [phone] ALLERGIES AND ADVERSE REACTIONS ALLERGIES AND ADVERSE REACTIONS Code System Allergy Substance Adverse Reaction Date Reaction (Severity) Comment Status Reported By Updated By Lucia MALAGON (Free Text Allergy) Adverse reaction to substance Not Specified active [id number] on March 30, 2025 2:39:57 AM [place] [id number] RXNorm Lexapro Adverse reaction to substance Not Specified active [id number] on March 30, 2025 2:39:57 AM [place] RESULTS Patient: GALILEA Easton Date of : 2000 11 LABORATORY RESULTS ORDER 100: URINALYSIS REFLEX MICROSCOPIC (LOINC: 81698-3) ORDER DATE: March 30, 2025 2:48:00 AM UTC Specimen Source: URINE Specimen Type: Urine specime n PERFORMING LAB: [address] [id number] Result Comment: Final Result Date: March 30, [...] 30, 2025 3:45:00 AM UTC (TECH: AY) 73026-8 Bilirubin.total [Mass/volume] in Urine by Automated test strip 1 NEGATIVE March 30, 2025 3:45:00 AM UTC (TECH: AY) 5797-6 Ketones [Mass/volume ] in Urine by Test strip 50 NEGATIVE March 30, 2025 3:45:00 AM UTC (TECH: AY) 2965-2 Specific gravity of Urine H 1.025 1.016 - 1.022 March 30, 2025 3:45:00 AM UTC (TECH: AY) 57084-4 Erythrocytes [#/volume] in Urine by Automated test strip 250 NEGATIVE March 30, 2025 3:45:00 AM UTC (TECH: AY) 28042-1 pH of Urine by Automated test strip N 6 5 - 9 March 30, 2025 3:45:00 AM UTC (TECH: AY) 71536-6 Protein [Presence] i n Urine by Test strip N TNP NEGATIVE March 30, 2025 3:45:00 AM UTC (TECH: AY) 53113-0 Urobilinogen [Mass/volume] in Urine by Automated test strip 12 NORMAL March 30, 2025 3:45:00 AM UTC (TECH: AY) 90777-0 Nitrate [Presence] i n Urine N NEGATIVE NEGATIVE March 30, 2025 3:45:00 AM UTC (TECH: AY) 15609-3 Leukocytes [#/volume ] in Urine by Test strip 25 NEGATIVE March 30, 2025 3:45:00 AM UTC (TECH: AY) 91606-4 Urinalysis dipstick W Reflex Culture panel - Urine N NO March 30, 2025 3:45:00 AM UTC (TECH: AY) 85874-5 Erythrocytes [#/area ] in Urine sediment by Microscopy high power field N 1-5 NONE SEEN March 30, 2025 3:45:00 AM UTC (TECH: AY) 5821-4 Leukocytes [#/area] in Urine sediment by Microscopy high power field N 0-2 NONE SEEN March 30, 2025 3:45:00 AM UTC (TECH: AY) 21674-9 Epithelial cells.squamous [#/area] in Urine sediment by [...] ORDER 200: HCG BETA QUANT (L OINC: 88186-0) ORDER DATE: March 30, 2025 2:48:00 AM UTC Specimen Source: PLASMA Specimen Type: Plasma specim en PERFORMING LAB: [address] [id number] Result Comment: Final Result Date: March 30, 2025 3:52:00 AM UTC (TECH: ME) LOINC TEST [place] [address]-1 Choriogonadotropin [Units/volume] in Serum or Plasma H 490 mIU/ml 0 mIU/ml - 5 mIU/ml March 30, 2025 3:52:00 AM UTC (TECH: ME) ORDER 300: CBC AUTO W DIFF ( LOINC: 15907-6) ORDER DATE: March 30, 2025 2:48:00 AM UTC Specimen Source: EDTA Specimen Type: Blood specime n with EDTA PERFORMING LAB: [address] [id number] Result Comment: Final Result Date: March 30, [...] 30, 2025 3:30:00 AM UTC (TECH: AY) 00137-7 Hematocrit [Volume Fraction] of Blood N 41.5 [...] 30, 2025 3:30:00 AM UTC (TECH: AY) 18784-6 Erythrocyte distribution width [Ratio] N 12.3 % 11.5 % - 14.0 % March 30, 2025 3:30:00 AM UTC (TECH: AY) 777-3 Platelets [#/volume] in Blood by Automated count H 524 K/ul 150 K/ul - 450 K/ul March 30, 2025 3:30:00 AM UTC (TECH: AY) 16682-8 Platelet mean volume [Entitic volume] in Blood by Automated count N 9.1 fl 6 fl - 9.5 fl March 30, 2025 3:30:00 AM UTC (TECH: AY) 51664-4 Neutrophils/100 leukocytes in Blood N 56.5 % [...] 30, 2025 3:30:00 AM UTC (TECH: AY) 40382-9 Immature granulocytes/100 leukocytes in Blood by Automated count N 0.2 % 0.0 % - 0.8 % March 30, 2025 3:30:00 AM UTC (TECH: AY) 99901-0 Nucleated cells [#/volume] in Blood N 0.0 % March 30, 2025 3:30:00 AM UTC (TECH: AY) 97574-4 Neutrophils [#/volume] in Blood H 5.0 K/uL [...] 30, 2025 3:30:00 AM UTC (TECH: AY) 67330-1 Immature granulocytes [#/volume] in Blood N 0.02 K/ul March 30, 2025 3:30:00 AM UTC (TECH: AY) 39296-9 Nucleated cells [#/volume] in Blood N 0.00 K/uL March 30, 2025 3:30:00 AM UTC (TECH: AY) 35835-4 Manual Differential panel - Blood N NO March 30, 2025 3:30:00 AM UTC (TECH: AY) ORDER 400: COMP METABOLIC PA RODRICK (LOINC: 82053-3) ORDER DATE: March 30, 2025 2:48:00 AM UTC Specimen Source: PLASMA Specimen Type: Plasma specim en PERFORMING LAB: [address] [id number] Result Comment: Final Result Date: March 30, [...] 30, 2025 3:43:00 AM UTC (TECH: ME) 38508-8 Anion gap in Blood N 12.2 O ctober 2024 3:43:00 AM UTC (TECH: ME) 2345-7 Glucose [Mass/volume ] in Serum or Plasma N 99 mg/dl 70 mg/dl - 120 mg/dl March 30, 2025 3:43:00 AM UTC (TECH: ME) 6299-2 Urea nitrogen [Mass/volume] in Blood N 10 mg/dL 7 mg/dL - 18 mg/dL Octobe r 2024 3:43:00 AM UTC (TECH: ME) 02965-7 Creatinine [Moles/vo lume] in Blood L 0.5 mg/dL 0.6 mg/dL - 1.3 mg/dL March 30, 2025 3:43:00 AM UTC (TECH: ME) 57271-8 Glomerular filtratio n rate/1.73 sq M.predicted by Creatinine-based formula (MDRD) N 136 mlpermin 60 mlpermin March 30, 2025 3:43:00 AM [facility] (TECH: [facility]) 41524-0 Osmolality of Serum or Plasma by calculated by sum of electrolytes N 286 mosm/kg 275 mosm/kg - 301 mosm/kg March 30, 2025 3:43:00 AM [place] (TECH: [facility]) 2885-2 Protein [Mass/volume ] in Serum or Plasma N 8.0 g/dl 6.4 g/dl - 8.2 g/dl March 30, 2025 3:43:00 AM [place] (TECH: [facility]) 1751-7 Albumin [Mass/volume ] in Serum or Plasma N 4.5 g/dl 3.4 g/dl - 5.0 g/dl March 30, 2025 3:43:00 AM [facility] (TECH: [facility]) 2336-6 Globulin [Mass/volum e] in Serum N 3.5 March 30, 2025 3:43:00 AM [facility] (TECH: [facility]) 1759-0 Albumin/Globulin [Ma ss Ratio] in Serum or Plasma N 1.3 0.7 - 2 Octobe 2024 3:43:00 AM [place] (TECH: [facility]) 75670-6 Calcium [Mass/volume ] in Serum or Plasma N 9.6 mg/dl 8.5 mg/dl - 10.5 mg/dl March 30, 2025 3:43:00 AM [facility] (TECH: [facility]) 1975-2 Bilirubin.total [Mass/volume] in Serum or Plasma N 0.90 mg/dL 0.10 mg/dL - 1.00 mg/dL March 30, 2025 3:43:00 AM [facility] (TECH: [facility]) 1920-8 Aspartate aminotransferase [Enzymatic activity/volume] in Serum or Plasma N 15 U/L 0 U/L - 37 U/L March 30, 2025 3:43:00 AM [facility] (TECH: [facility]) 1742-6 Alanine aminotransfe rase [Enzymatic activity/volume] in Serum or Plasma N 13 U/L 0 U/L - 65 U/L March 30, 2025 3:43:00 AM [place] (TECH: [facility]) 6768-6 Alkaline phosphatase [Enzymatic activity/volume] in Serum or Plasma N 99 U/L 46 U/L - 116 U/L March 30 3:43:00 AM [facility] (TECH: [place]) LABORATORY NARRATIVE RESULTS Information is not available RADIOLOGY RESULTS Information is not available PATHOLOGY NARRATIVE RESULTS Information is not available MICROBIOLOGY RESULTS No Micro Labs/Results Exist for Patient BLOOD ADMIN RESULTS Information is not available MEDICATIONS HOME MEDICATIONS Status RXNORM NDC Medication Dose Route Frequency Dates Comments Reported By Updated By Active 454019 06225 49903 1 atorvastatin 80 mg tablet 0.0 ORAL BEDTIME Last Dose: [id number] on March 30, 2025 2:39:57 AM [facility] Active FreeT extMe d Cardizem oral 240mg 0.0 DAILY Last Dose: [id number] on March 30, 2025 2:39:57 AM [facility] Active [id number] 51236 06584 8 Eliquis 5 mg tablet 1.0 TAB ORAL DAILY Last Dose: [id number] on March 30, 2025 2:39:58 AM [facility] Active 087856 69261 49573 0 losartan 25 mg tablet 1.0 TAB ORAL DAILY Last Dose: [id number] on March 30, 2025 2:39:58 AM [facility] DISCHARGE MEDICATIONS Status RXNORM NDC Medication Dose [...] Effective Dates Offered Cessation Comment Updated By [id number] Current Tobacco smoking status Unknown If Ever Smoked [id number] on March 30, 2025 2:40:04 AM [facility] [id number] Historical Tobacco smoking status Current Every Day Smoker [id number] on August 01, 2024 8:52:23 AM [facility] SOCIAL HISTORY - Gender Sex: Female SOCIAL HISTORY - Status : status i nformation is not available Intention in Next Year: intention information is not available SOCIAL HISTORY - Assessments Code System Description Status Date Value of Assessment Updated By Comment Assessment Information is no t available SOCIAL HISTORY - [place] Affiliation [place] information is not av ailable SOCIAL HISTORY [...] value for each vital sign as of April 01, 2025 7:53:07 AM UTC Loinc Code Vital Sign Activity Date Result Updated By 8302-2 Body height March 30, 2025 2:37:37 AM UTC 144.78 cm (57.0 in) [id number] on March 30, 2025 2:37:37 AM UTC 90961-6 Body mass index (BMI ) [Ratio] March 30, 2025 2:37:37 AM UTC 20.8 kg/m2 3140-1 Body Surface Area Derived From Formula March 30, 2025 2:37:37 AM UTC 1.3172 m2 8310-5 Body temperature March 30 3:00:00 AM UTC 97.4 [degF] 83743-3 Body weight Measured March 30, 2025 2:37:37 AM UTC 43.6 kg (96.0 lb) [id number] on March 30, 2025 2:37:37 AM UTC 8462-4 Diastolic blood pressure March 30, 2025 2:34:00 AM UTC 82.0 mm[Hg] 8867-4 Heart rate March 30, 2025 3:00:00 AM UTC 78 /min 86206-3 Oxygen saturation in Arterial blood by Pulse [...] PREG) Admission March 30, 2025 2:15:00 [place] [place] [address] Discharge March 30, 2025 4:05:00 AM UTC DISCHARGED TO HOME OR SELF CARE ENCOUNTER DIAGNOSES Notes information is not clemente ilable. Code System Diagnosis Onset Date Diagnosis information is not available. ABSTRACT DIAGNOSES Code System Diagnosis Updated By Abatement Date O26.899 ICD10 OTHER SPECIFIED RELATED CONDITIONS, UNSPECIFIED TRIMESTER [id number] on April 01, 2025 7:52:24 AM UTC R10.21 ICD10 PELVIC AND PERIN EAL PAIN RIGHT SIDE [id number] on April 01, 2025 7:52:24 AM UTC R10.31 ICD10 RIGHT LOWER QUADRANT PAIN BY [id number] on April 01, 2025 7:52:24 AM UTC O26.899 ICD10 OTHER SPECIFIED RELATED CONDITIONS, UNSPECIFIED TRIMESTER [id number] on April 01, 2025 7:52:24 AM UTC R10.20 ICD10 PELVIC AND PERIN EAL PAIN UNSPECIFIED SIDE [id number] on April 01, 2025 7:52:24 AM UTC O00.90 ICD10 UNSPECIFIED ECTO PIC WITHOUT INTRAUTERINE [id number] on April 01, 2025 7:52:24 AM UTC Z88.8 ICD10 ALLERGY STATUS T O OTHER DRUGS, MEDICAMENTS AND BIOLOGICAL SUBSTANCES [id number] on April 01, 2025 7:52:24 AM UTC CARE TEAM Care Brand Development Manager Role AARTI MCRAE Referring SHERRI DILLARD Primary Attending SHERRI DILLARD Admitting AARTI MCRAE Primary Care CARE TEAM CARE yard manager Role on Team Location Telecom Status Start Date End Nickolas e Updated By CLEMENTINA Alarcon Referring normal March 30, 2025 2:42:18 AM [place] March 30, 2025 4:05:00 AM UTC [id number] on March 30, 2025 2:42:18 AM UTC NISHANT RAMOS Attending normal March 30, 2025 2:42:18 AM UTC March 30, 2025 4:05:00 AM UTC [id number] on March 30, 2025 2:42:18 AM [place] NISHANT RAMOS Admitting normal March 30, 2025 2:42:18 AM UTC March 30, 2025 4:05:00 AM [place] [id number] on March 30, 2025 2:42:18 AM [facility] CLEMENTINA Alarcon PCP normal March 30, 2025 2:16:38 AM [facility] March 30, 2025 4:05:00 AM [facility] [id number] on March 30, 2025 2:42:18 AM [facility]
--- OUTSIDE RECORDS SUMMARY | 2025-04-02 01:10 | XMS_ITS | Continuity of Care Document ---
Author Organization [facility] Phone Care Team Providers Care Recovery Assistant Name Role Phone AARTI MCRAE Unavailable SOLE MACHADO Admitting Unavailable SOLE MACHADO Primary Attending Unavailable AARTI MCRAE Primary Care [phone] ALLERGIES AND ADVERSE REACTIONS ALLERGIES AND ADVERSE REACTIONS Code System Allergy Substance Adverse Reaction Date Reaction (Severity) Comment Status Reported By Updated By Lucia MALAGON (Free Text Allergy) Adverse reaction to substance Not Specified active [id number] on April 02, 2025 3:03:23 AM [facility] [id number] RXNorm Lexapro Adverse reaction to substance Not Specified active [id number] on April 02, 2025 3:03:22 AM [facility] RESULTS Patient: GALILEA Easton Date of : 2000 9 LABORATORY RESULTS ORDER 100: CBC AUTO W DIFF ( LOINC: 01429-8) ORDER DATE: April 02, 2025 2:58:00 AM UT Specimen Source: EDTA Specimen Type: Blood specime n with EDTA PERFORMING LAB: [address] [id number] Result Comment: Final Result Date: April 02, 2025 3:15:00 AM UT (TECH: ME) LOINC TEST FLAG RESULT REFERENCE RANGE UPDA LESA BY 6690-2 Leukocytes [#/volume] in Blood by Automated count N 8.4 K/ul 4.0 K/ul - 10.5 K/ul April 02, 2025 3:15:00 AM UTC (TECH: ME) 789-8 Erythrocytes [#/volume] in Blood by Automated count N 4.5 M/mm3 4.2 M/mm3 - 6.4 M/mm3 April 02, 2025 3:15:00 AM UTC (TECH: [employer] 718-7 Hemoglobin [Mass/volume] in Blood N 12.9 gm/dl 12.5 gm/dl - 16.0 gm/dl April 02, 2025 3:15:00 AM UTC (TECH: ME) 92855-8 Hematocrit [Volume Fraction] of Blood N 38.6 % 37.0 % - 47.0 % April 02, 2025 3:15:00 AM UTC (TECH: [employer] 787-2 Erythrocyte mean corpuscular volume [Entitic volume] by Automated count N 86.0 fl 78 fl - 100 fl April 02, 2025 3:15:00 AM UTC (TECH: [employer] 785-6 Erythrocyte mean corpuscular hemoglobin [Entitic mass] by Automated count N 28.7 pg 27 pg - 31 pg April 02, 2025 3:15:00 AM UTC (TECH: [employer] 786-4 Erythrocyte mean corpuscular hemoglobin concentration [Mass/volume] by Automated count N 33.4 g/dl 32 g/dl - 36 g/dl April 02, 2025 3:15:00 AM UTC (TECH: [employer] 39861-3 Erythrocyte distribution width [Ratio] N 12.8 % 11.5 % - 14.0 % April 02, 2025 3:15:00 AM UTC (TECH: [employer] 777-3 Platelets [#/volume] in Blood by Automated count H 460 K/ul 150 K/ul - 450 K/ul April 02, 2025 3:15:00 AM UTC (TECH: [employer] 57367-2 Platelet mean volume [Entitic volume] in Blood by Automated count N 9.2 fl 6 fl - 9.5 fl April 02, 2025 3:15:00 AM UTC (TECH: [employer] 30554-8 Neutrophils/100 leukocytes in Blood N 51.7 % 43 % - 65 % April 02, 2025 3:15:00 AM UTC (TECH: [employer] 736-9 Lymphocytes/100 leukocytes in Blood by Automated count N 38.1 % 20.5 % - 45.5 % April 02, 2025 3:15:00 AM UTC (TECH: [employer] 5905-5 Monocytes/100 leukocytes in Blood by Automated count N 7.9 % 5.5 % - 11.7 % April 02, 2025 3:15:00 AM UTC (TECH: ME) 713-8 Eosinophils/100 leukocytes in Blood by Automated count N 1.7 % 0.9 % - 2.9 % April 02, 2025 3:15:00 AM UTC (TECH: ME) 706-2 Basophils/100 leukocytes in Blood by Automated count N 0.5 % 0.2 % - 1.0 % April 02, 2025 3:15:00 AM UTC (TECH: ME) 65241-3 Immature granulocytes/100 leukocytes in Blood by Automated count N 0.1 % 0.0 % - 0.8 % April 02, 2025 3:15:00 AM UTC (TECH: ME) 36618-1 Nucleated cells [#/volume] in Blood N 0.0 % April 02, 2025 3:15:00 AM UTC (TECH: ME) 96210-0 Neutrophils [#/volume] in Blood N 4.3 K/uL 2.2 K/uL - 4.8 K/uL April 02, 2025 3:15:00 AM UTC (TECH: ME) 731-0 Lymphocytes [#/volume] in Blood by Automated count H 3.2 CELL/MCL 1.3 CELL/MCL - 2.9 CELL/MCL April 02, 2025 3:15:00 AM UTC (TECH: ME) 742-7 Monocytes [#/volume] in Blood by Automated count N 0.7 CELL/MCL 0.3 CELL/MCL - 0.8 CELL/MCL April 02, 2025 3:15:00 AM UTC (TECH: ME) 711-2 Eosinophils [#/volume] in Blood by Automated count N 0.1 CELL/MCL 0 CELL/MCL - 0.2 CELL/MCL April 02, 2025 3:15:00 AM UTC (TECH: ME) 704-7 Basophils [#/volume] in Blood by Automated count N 0.0 CELL/MCL 0.0 CELL/MCL - 1.0 CELL/MCL April 02, 2025 3:15:00 AM UTC (TECH: ME) 08640-3 Immature granulocytes [#/volume] in Blood N 0.01 K/ul April 02, 2025 3:15:00 AM UTC (TECH: [employer] 99226-0 Nucleated cells [#/volume] in Blood N 0.00 K/uL April 02, 2025 3:15:00 AM [place] (TECH: [place]) 94563-9 Manual Differential panel - Blood N NO April 02, 2025 3:15:00 AM UT (TECH: CA) ORDER 200: HCG BETA QUANT (L OINC: 46504-1) ORDER DATE: April 02, 2025 2:58:00 AM UT Specimen Source: PLASMA Specimen Type: Plasma specim en PERFORMING LAB: [address] [id number] Result Comment: Final Result Date: April 02, 2025 3:38:00 AM UT (TECH: ) LOINC TEST [place] [address]-8 Choriogonadotropin [Units/volume] in Serum or Plasma H 407 mIU/ml 0 mIU/ml - 5 mIU/ml April 02, 2025 3:38:00 AM UT (TECH: ) ORDER 300: COMP METABOLIC PA RODRICK (LOINC: 97724-8) ORDER DATE: April 02, 2025 2:58:00 AM UT Specimen Source: PLASMA Specimen Type: Plasma specim en PERFORMING LAB: [address] [id number] Result Comment: Final Result Date: April 02, 2025 3:33:00 AM [facility] (TECH: AY) LOINC TEST FLAG RESULT REFERENCE RANGE UPDA LESA BY 2951-2 Sodium [Moles/volume ] in Serum or Plasma N 140 mmol/L 136 mmol/L - 145 mmol/L April 02, 2025 3:29:00 AM UT (TECH: AY) 2823-3 Potassium [Moles/volume] in Serum or Plasma L 3.1 mmol/L 3.6 mmol/L - 5.0 mmol/L April 02, 2025 3:29:00 AM UT (TECH: AY) 2075-0 Chloride [Moles/volume] in Serum or Plasma N 103 mmol/L 98 mmol/L - 107 mmol/L April 02, 2025 3:29:00 AM UT (TECH: AY) 2027-9 Carbon dioxide, tota l [Moles/volume] in Serum or Plasma N 25.7 mmol/L 21.0 mmol/L - 32.0 mmol/L April 02, 2025 3:29:00 AM [facility] (TECH: AY) 23574-6 Anion gap in Blood N 14.4 O ct2024 3:29:00 AM [facility] (TECH: AY) 2345-7 Glucose [Mass/volume ] in Serum or Plasma N 95 mg/dl 70 mg/dl - 120 mg/dl April 02, 2025 3:29:00 AM [facility] (TECH: AY) 6299-2 Urea nitrogen [Mass/volume] in Blood N 9 mg/dL 7 mg/dL - 18 mg/dL April 02, 2025 3:29:00 AM UT (TECH: AY) 57005-2 Creatinine [Moles/volume] in Blood L 0.5 mg/dL 0.6 mg/dL - 1.3 mg/dL April 02, 2025 3:29:00 AM [facility] (TECH: AY) 67181-1 Glomerular filtratio n rate/1.73 sq M.predicted by Creatinine-based formula (MDRD) N 136 mlpermin 60 mlpermin April 02, 2025 3:29:00 AM [facility] (TECH: AY) 19747-1 Osmolality of Serum or Plasma by calculated by sum of electrolytes N 290 mosm/kg 275 mosm/kg - 301 mosm/kg April 02, 2025 3:29:00 AM [facility] (TECH: AY) 2885-2 Protein [Mass/volume ] in Serum or Plasma N 7.0 g/dl 6.4 g/dl - 8.2 g/dl April 02, 2025 3:33:00 AM UT (TECH: AY) 1751-7 Albumin [Mass/volume ] in Serum or Plasma N 3.9 g/dl 3.4 g/dl - 5.0 g/dl April 02, 2025 3:33:00 AM UT (TECH: AY) 2336-6 Globulin [Mass/volum e] in Serum N 3.1 April 02, 2025 3:33:00 AM [facility] (TECH: AY) 1759-0 Albumin/Globulin [Ma ss Ratio] in Serum or Plasma N 1.3 0.7 - 2 April 02, 2025 3:33:00 AM [facility] (TECH: AY) 66106-9 Calcium [Mass/volume ] in Serum or Plasma N 9.2 mg/dl 8.5 mg/dl - 10.5 mg/dl April 02, 2025 3:29:00 AM UTC (TECH: AY) 1975-2 Bilirubin.total [Mass/volume] in Serum or Plasma N 0.40 mg/dL 0.10 mg/dL - 1.00 mg/dL April 02, 2025 3:33:00 AM UTC (TECH: AY) 1920-8 Aspartate aminotransferase [Enzymatic activity/volume] in Serum or Plasma N 12 U/L 0 U/L - 37 U/L April 02, 2025 3:33:00 AM UTC (TECH: AY) 1742-6 Alanine aminotransferase [Enzymatic activity/volume] in Serum or Plasma N 12 U/L 0 U/L - 65 U/L April 02, 2025 3:33:00 AM UTC (TECH: AY) 6768-6 Alkaline phosphatase [Enzymatic activity/volume] in Serum or Plasma N 87 U/L 46 U/L - 116 U/L April 02, 2025 3:33:00 AM UTC (TECH: AY) ORDER 400: URINALYSIS REFLEX MICROSCOPIC (LOINC: 81756-3) ORDER DATE: April 02, 2025 2:58:00 AM UTC Specimen Source: URINE Specimen Type: Urine specime n PERFORMING LAB: [address] [id number] Result Comment: Final Result Date: April 02, 2025 3:24:00 AM UT (TECH: ME) LOINC TEST FLAG RESULT REFERENCE RANGE UPDA LESA BY 5778-6 Color of Urine N STRAW YELLOW Octob 2024 3:24:00 AM UTC (TECH: ME) 5767-9 Appearance of Urine N CLEAR CLEAR April 02, 2025 3:24:00 AM UTC (TECH: ME) 5792-7 Glucose [Mass/volume ] in Urine by Test strip N norm NORMAL April 02, 2025 3:24:00 AM UTC (TECH: ME) 27808-8 Bilirubin.total [Mass/volume] in Urine by Automated test strip N NEGATIVE NEGATIVE April 02, 2025 3:24:00 AM UTC (TECH: ME) 5797-6 Ketones [Mass/volume ] in Urine by Test strip N NEGATIVE NEGATIVE April 02, 2025 3:24:00 AM UTC (TECH: ME) 2965-2 Specific gravity of Urine H 1.025 1.01 6 - 1.022 April 02, 2025 3:24:00 AM UTC (TECH: ME) 13277-3 Erythrocytes [#/volu me] in Urine by Automated test strip 250 NEGATIVE April 02, 2025 3:24:00 AM UTC (TECH: ME) 17978-1 pH of Urine by Autom ated test strip N 6 5 - 9 April 02, 2025 3:24:00 AM UTC (TECH: ME) 43366-3 Protein [Presence] i n Urine by Test strip N TNP NEGATIVE April 02, 2025 3:24:00 AM UTC (TECH: ME) 43480-5 Urobilinogen [Mass/v olume] in Urine by Automated test strip 1 NORMAL April 02, 2025 3:24:00 AM UTC (TECH: ME) 33865-8 Nitrate [Presence] i n Urine N NEGATIVE NEGATIVE April 02, 2025 3:24:00 AM UTC (TECH: ME) 48922-4 Leukocytes [#/volume ] in Urine by Test strip 25 NEGATIVE April 02, 2025 3:24:00 AM UTC (TECH: ME) 74743-4 Urinalysis dipstick W Reflex Culture panel - Urine N NO April 02, 2025 3:24:00 AM UTC (TECH: ME) 89294-4 Erythrocytes [#/area ] in Urine sediment by Microscopy high power field 11-20 NONE SEEN April 02, 2025 3:24:00 AM UTC (TECH: ME) 5821-4 Leukocytes [#/area] in Urine sediment by Microscopy high power field N 0-2 NONE SEEN April 02, 2025 3:24:00 AM UTC (TECH: ME) 81401-7 Epithelial cells.squ amous [#/area] in Urine sediment by Microscopy high power field N 1-5 NONE SEEN April 02, 2025 3:24:00 AM UTC (TECH: ME) 5769-5 Bacteria [#/area] in Urine sediment by Microscopy high power field N RARE NONE SEEN April 02 3:24:00 AM UTC (TECH: ME) LABORATORY NARRATIVE RESULTS Information is not available RADIOLOGY RESULTS Information is not available PATHOLOGY NARRATIVE RESULTS Information is not available MICROBIOLOGY RESULTS No Micro Labs/Results Exist for Patient BLOOD ADMIN RESULTS Information is not available MEDICATIONS HOME MEDICATIONS Status RXNORM ND Medication Dose Route Frequency Dates Comments Reported By Updated By Active [id number] 98146 30486 1 atorvastatin 80 mg tablet 0.0 ORAL BEDTIME Last Dose: [id number] on April 02, 2025 3:03:22 AM [facility] Active FreeT extMe d Cardizem oral 240mg 0.0 DAILY Last Dose: [id number] on April 02, 2025 3:03:23 AM [facility] Active 5567928 18717 26612 8 Eliquis 5 mg tablet 1.0 TAB ORAL DAILY Last Dose: [id number] on April 02, 2025 3:03:23 AM [facility] Active 918390 78090 41487 0 losartan 25 mg tablet 1.0 TAB ORAL DAILY Last Dose: [id number] on April 02, 2025 3:03:23 AM [facility] DISCHARGE MEDICATIONS Status RXNORM ND Medication Dose Route Frequency Dates Dis pense Data Comments Physician Updated By No Discharge Medication Info rmation Available INPATIENT MEDICATIONS Status RXNORM ND Medication Dose Route Frequency Rat e Quantity Dates Indication Dispense Data Comments Physician Updated By Lexi inued [id number] 6785 4036 009 potassium chloride (K-DUR) 20 MEQ TBCR 20.0 MEQ ORAL ONE TIME ONLY (SCHEDULED DOSE) Start: Octobe r 2024 3:55:0 0 AM [facility] End: Octobe r 2024 3:55:0 0 AM [facility] on April 02, 2025 3:55:00 AM [facility] SOCIAL HISTORY SOCIAL HISTORY - Smoking Status SNOMED-CT Social History Element Description Effective Dates Offered Cessation Comment Updated By [id number] Current Tobacco smoking status Never Smoked [id number] on April 02, 2025 3:03:39 AM [facility] [id number] Historical Tobacco smoking status Unknown If Ever Smoked [id number] on March 30, 2025 2:40:04 AM [facility] [id number] Historical Tobacco smoking status Current Every Day Smoker [id number] on August 01, 2024 8:52:23 AM [facility] SOCIAL HISTORY - Gender Sex: Female SOCIAL HISTORY - Status : status i nformation is not available Intention in Next Year: intention information is not available SOCIAL HISTORY - Assessments Code System Description Status Date Value of Assessment Updated By Comment Assessment Information is no t available SOCIAL HISTORY - [place] Affiliation [place] information is not av ailable SOCIAL [...] for each vital sign as of April 02, 2025 5:10:03 AM UTC Loinc Code Vital Sign Activity Date Result Updated By 8302-2 Body height April 02, 2025 3:01:42 AM UTC 144.78 cm (57.0 in) [id number] on April 02, 2025 3:01:42 AM UTC 43106-3 Body mass index (BMI ) [Ratio] April 02, 2025 3:01:42 AM UTC 21.039 kg/m2 3140-1 Body Surface Area Derived From Formula April 02, 2025 3:01:42 AM UTC 1.3236 m2 8310-5 Body temperature April 02 2:57:00 AM UTC 98.1 [degF] 61424-4 Body weight Measured April 02, 2025 3:01:42 AM UTC 44.1 kg (97.0 lb) [id number] on April 02, 2025 3:01:42 AM UTC 8462-4 Diastolic blood pressure April 02, 2025 4:00:00 AM UTC 74.0 mm[Hg] 8867-4 Heart rate April 02, 2025 4:05:00 AM UTC 81 /min 83608-6 Oxygen saturation in Arterial blood by Pulse oximetry April 02, 2025 4:05:00 AM UTC 98.0 % 9279-1 Respiratory rate April 02 2:57:00 AM UTC 18 /min 8480-6 Systolic blood pressure April 02, 2025 4:00:00 AM UTC 118.0 mm[Hg] PEDIATRIC GROWTH CHART - VITAL SIGNS [...] INFORMATION Reason for Visit VAGINAL BLEEDING Admission April 02, 2025 2:49:00 AM UTC [place] [id number] [facility] [id number] Discharge April 02, 2025 4:10:00 AM UT DISCHARGED TO HOME OR SELF CARE ENCOUNTER DIAGNOSES Notes information is not clemente ilable. Code System Diagnosis Onset Date Diagnosis information is not available. ABSTRACT DIAGNOSES Code System Diagnosis Updated By Abatement Date Abstract Diagnosis informati on is not available. CARE TEAM Care Recovery Assistant Role AARTI MCRAE Referring SOLE MACHADO Admitting SOLE MACHADO Primary Attending AARTI MCRAE Primary Care CARE TEAM CARE laborer mine Role on Team Location Telecom Status Start Date End Nickolas e Updated By CLEMENTINA Alarcon Referring normal April 02, 2025 4:02:55 AM UT April 02, 2025 4:10:00 AM UTC [id number] on April 02, 2025 4:02:55 AM UT JEANNETTE RAMOS Attending normal April 02, 2025 4:02:55 AM UT April 02, 2025 4:10:00 AM UTC [id number] on April 02, 2025 4:02:55 AM UT JEANNETTE RAMOS Admitting normal April 02, 2025 4:02:55 AM UT April 02, 2025 4:10:00 AM UTC [id number] on April 02, 2025 4:02:55 AM [facility] CLEMENTINA Alarcon PCP normal April 02, 2025 2:49:51 AM UTC April 02, 2025 4:10:00 AM UTC [id number] on April 02, 2025 4:02:55 AM UT
[2025-04-02 10:55] VITALS: BP 154/86; PULSE 131; RESP 18; TEMP 36.6; O2SAT 100; BMI 19.9
--- OUTSIDE RECORDS SUMMARY | 2025-04-02 10:55 | XMS_ITS | Encounter Summary ---
Author Organization [facility] Address [address] [id number] Care Team Providers Care Shuttle Preparation Supervisor Name Role Phone Sarika Moyer SENIOR UX DEVELOPER Primary Care Provider + Encounter Details Date [...] EST Initial [facility] [address] [place] [address] Chiki Cardenas MD [address] [place] [address] documented as of this encounter Visit Diagnoses Not on filedocumented in this encounter Care Teams Shuttle Preparation Supervisor Relationship Specialty Start Date End Date Sarika Moyer, SENIOR UX DEVELOPER [address] [place] [address] PCP - General 10/14/20 documented as of this encounter
--- OUTSIDE RECORDS SUMMARY | 2025-04-02 10:55 | XMS_ITS | Encounter Summary ---
Author Organization [facility] Address [address] [id number] Care Team Providers Care Electric Tripper Machine Operator Name Role Phone Sarika Moyer APRN Primary Care Provider + Encounter Details Date Type Department Care Team (Late Contact Info) Description 03/17/2025 Telephone Obstetrics & Gynecology [address] [place] [address] Chiki Cardenas MD [address] [place] [address] Social History Tobacco Use Types [...] Upcoming Encounters Date Type Department Care Team ([facility] Contact Info) Description 04/05/2025 8:15 AM EST Initial Obstetrics & Gynecology [address] [place] [address] Chiki Cardenas MD [address] [place] [phone] documented as of this encounter Visit Diagnoses Not on filedocumented in this encounter Care Teams Electric Tripper Machine Operator Relationship Specialty Start Date End Date Sarika Moyer APRN [address] [facility] [place] [address] PCP - General 10/14/20 documented as of this encounter
--- OUTSIDE RECORDS SUMMARY | 2025-04-02 10:55 | XMS_ITS | Clinical Summary ---
Author Organization Healthcare Address [address] [id number] Care Team Providers Care Mc Kay Stitcher Name Role Phone Sarika Moyer MILITARY TECHNOLOGY MANAGER Primary Care Provider + Allergies Active Allergy Reactions Criticality Noted Date Comments Escitalopram Anaphylaxis High 03/27/2025 Robitussin Dm Max Day-Night Anxiety Low 03/27/20 Medications No known medications Active Problems Comments Yes No known active problems Encounters Date Type Department Care Team Description 03/27/2025 8:35 PM EDT - 03/28/2025 1:22 AM EDT Emergency [facility] [address] [place] [address] Rose Cortes MD of unknown anatomic location (Primary Dx) Discharge Disposition: Home or Self Care 03/27/2025 Travel 03/17/2025 Telephone Obstetrics & Gynecology [address] [place] [address] Chiki Cardenas MD from Last 3 [...] Initial Obstetrics & Gynecology [address] [place] [address] Chiki Cardenas MD [address] [place] [address] Health Maintenance Due Date Last Done Comments [facility]-Depression Screening 2002 [facility]-Infant/Child/Adol SDOH Screenings 2002 [facility]- SDOH Screenings 2020 [facility]-Adult SDOH Screenings 2020 [facility]-Pap Smear 2023 [facility]-DTaP,Tdap,and Td Vaccines (7 - Td or Tdap) 10/19/2024 10/19/2014, 05/21/2006, 08/26/2003, Additional history exists LTT-ZSVGE-38 Vaccine ( - season) 2025 [facility]-Influenza Vaccine [...] on 03/27/2025 11:57 PM Rose Cortes MD [facility] Final Result * ED HIV [...] Final Resu lt Performing Organization Address City/[facility]/ZIP Co de Phone Number [facility] [address] [place] [address] * Hepatitis C Antibody - ED (03/27/2025 8:31 PM EDT) Pathologist [facility] Hepatitis C Antibody Negative Negative 03/27/2025 9:26 PM EDT [facility] Blood Venous blood specimen / Unknown Venipuncture / Unknown 03/27/2025 8:31 PM EDT 03/27/2025 8:44 PM EDT Rose Cortes MD LAB BLOOD ORDERABLES Final Resu lt Performing Organization Address City/[facility]/ZIP Co de Phone Number [facility] [address] [place] [address] * (ABNORMAL) CBC w/diff (03/27/2025 8:31 PM EDT) [facility] WBC Count 11.76(H) 3.70 - 10.30 10*3/uL [...] on absolute values, rather than percentages. Rose Cotres MD LAB BLOOD ORDERABLES Final Resu lt [facility] [address] [place] [address] * Type and screen (03/27/2025 8:31 PM [...] TEST ORDERABLES Final Result Performing Organization Address [facility] de Phone Number BLOOD BANK [address] [place] [address], * (ABNORMAL) hCG, quantitative, (03/27/2025 8:31 PM [...] Resu lt [facility] [address] [place] [address] * (ABNORMAL) CMP (03/27/2025 8:31 PM EDT) [...] Resu lt [facility] [address] [place] [address] from Last 3 Months Insurance [facility] MEDICAID Care Teams Mc Kay Stitcher Relationship Specialty Start Date End Date Sarika Moyer APRN [address], [place] [address] PCP - General 10/14/20
--- NOTE | 2025-04-02 11:07 | HMH.EDGENADL ---
Discharge Plan Disposition Patient Disposition: Home, Self-Care Prescriptions Prescriptions: No Action hydroxyzine HCl 25 mg tablet 25 mg PO HS Qty: 30 0RF Referrals Follow up/Referrals: Latesha Brody APRN [Nurse Practitioner, Behavioral Health] - See instructions Sarika Moyer APRN [Primary Care Provider, Medical] - See instructions Activity Restrictions/Add. Instructions Additional Instructions/Restrictions: Your potassium was low today and was replaced with the pills given to you. I have low concern for any ruptured ectopic at this time. I do encourage you to follow-up with Dr. Lee. You can expect bleeding for the next 6 to 8 weeks, which is normal after getting methotrexate. If you develop any new or worsening symptoms, or if you become concerned for your help for any reason, return to the emergency department for evaluation. I do encourage you to also follow-up with our behavioral health team for your anxiety. Clinical Impressions Clinical Impression: Vaginal bleeding, Hypokalemia Print Language Print Language: South African Discharge ED Provider: Andrea Lucio Adult HPI General Chief complaint: OB/Uterine Contractions Stated complaint: atopic -bleeding Time Seen by Provider: 04/02/25 11:00 Mode of Arrival: Ambulatory Source of Information: Patient Description of Symptoms (Recalled from ER Triage Doc. by RN): Patient reports being seen at [facility] last night regarding increased bleeding and clots. States they told her that her Hcg was increased and this morning she was worried because the bleeding and clots are not getting better so she came to the ER for evaluation. History of Present Illness HPI narrative: Ivon Jeter is a 24y female with a history of recently diagnosed ectopic status post methotrexate on 03/25/2025, followed by Dr. Lee with [facility] who presents to the emergency department for vaginal bleeding. Patient states that she has continued to bleed since taking methotrexate and feels like it is more than it should be. She states that she is having kamran sized clots. She has had a pad for 2 hours currently and has not soaked through it. She denies any abdominal pain. She was seen by Dr. Lee on the and yesterday went to [place] emergency department was told that her beta-hCG has risen slightly to 407 and was 390s before that. She has been reading [employer] and is concerned that she might have a ruptured ectopic . Related Data Previous Rx's ?Medication ?Instructions ?Recorded hydroxyzine HCl 25 mg tablet 25 mg PO HS #30 tabs 03/26/25 Allergies Allergy/AdvReac Type Severity Reaction Status Date / Time dextromethorphan Allergy Unknown Verified 03/31/25 10:28 allergy reaction guaifenesin (From Robitussin) Allergy Unknown Verified 03/31/25 10:28 allergy reaction PFSH [facility] Disclaimer: The information contained in this section may have been updated after the patient was seen, as this information can be updated by other users. Medical History No significant medical problems Surgical History History of tonsillectomy and adenoidectomy H/O oral surgery Social History Smoking Status: Current every day smoker tobacco type: e-cigarettes alcohol intake: never current occupational status: employed Travel in the last 8 weeks?: None household members: spouse Have you lived/traveled outside US in past 30 days?: No Contact w/someone who lives/traveled outside US past 30 days?: No Exposure to someone with infectious disease in past 14 days?: No Do you have a fever (greater than 100.4 F or 38 C)?: No Have you tested positive for COVID-19?: No Exposed to someone with COVID-19 in past 14 days?: No Do you have a sore throat?: No Do you have a cough?: No Do you have any weakness?: No Do you have any diarrhea?: No Are you experiencing any unusual bleeding?: No Do you have any muscle aches/pain?: No Do you have any abdominal pain?: No Are you experiencing loss of taste or smell?: No ROS Obtained: Yes Systems reviewed as appropriate & no additional complaints except as documented Physical Exam General General appearance: alert, in no apparent distress and anxious Head Head exam: atraumatic Eye Eye exam: Present normal appearance ENT ENT exam: Present normal external ear exam Neck Neck exam: Present full ROM Chest Chest inspection: Present symmetric chest wall rise Respiratory Respiratory exam: Present normal lung sounds bilaterally; Absent respiratory distress Cardiovascular Cardiovascular exam: Present regular rate and normal rhythm Abdominal Exam Abdominal exam: Present soft; Absent distention, tenderness, guarding or rebound Extremities Exam Extremities exam: Present normal inspection Back Exam Back exam: Present normal inspection Neurological Exam Neurological exam: Present alert and oriented X3 Psychiatric Psychiatric exam: Present normal affect and anxious Skin Skin exam: Present warm and dry Medical Decision Making Medical Records Screening: Per USPSTF and CDC recommendations, given the prevalence of disease in our region, it is our hospital?s policy to screen for HIV and viral Hepatitis for all patients aged 18 and over and those with ongoing risk factors. Lucho Inquiry Pt receiving controlled substance: No Vital Signs: 04/02/25 10:55 Temperature 97.8 F Temperature Source Oral Pulse Rate [Radial] 131 H Respiratory Rate 18 Blood Pressure [Right Arm] 154/86 H Blood Pressure Mean [Right Arm] 108 Blood Pressure Source [Right Arm] Automatic Cuff Blood Pressure Position [Right Arm] Sitting 02 Sat by Pulse Oximetry 100 Oxygen Delivery Method Room Air Lab Data Lab Results 04/02/25 11:23: WBC 8.0, RBC 4.97, Hgb 14.5, Hct 43.1, MCV 86.7, MCH 29.2, MCHC 33.6, RDW 12.9, Plt Count 487 H, MPV 9.0, Neut % (Auto) 70.7, Lymph % (Auto) 21.8, [place] % (Auto) 6.2, Eos % (Auto) 0.6, Baso % (Auto) 0.5, Neut # (Auto) 5.7, Lymph # (Auto) 1.8, [place] # (Auto) 0.5, Eos # (Auto) 0.1, Baso # (Auto) 0.0, Sodium 138, Potassium 2.9 L*, Chloride 100, Carbon Dioxide 25, Anion Gap 15.9 H, BUN 10, Creatinine 0.50 L, Estimated Creat Clear 116, Estimated GFR 154, Est GFR ( Amer) 187, Glucose 115 H, Calcium 9.8, Total Bilirubin 0.8, AST 32, ALT 21, Alkaline Phosphatase 97, Total Protein 8.6 H, Albumin 4.3, Globulin 4.3 H, Albumin/Globulin Ratio 1.0 L, HCG, Quant 353 H 04/02/25 11:23 04/02/25 11:23 Orders (Tests/Meds): ED MEDICATIONS Discontinued Medications Generic Name Dose Route Start Last Admin Trade Name Freq PRN Reason Stop Dose Admin Potassium Chloride 40 meq 04/02/25 12:55 04/02/25 13:00 Potassium Chloride 20meq Tab PO 04/02/25 12:56 40 meq ONCE ONE Administration ORDERS Category Date Time Status Beta HCG, Quant [HCG,Quantitative] Stat Lab 04/02/25 11:23 Completed CBC [Complete Blood Count Auto Diff] Stat Lab 04/02/25 11:23 Completed CMP [Comprehensive Metabolic Panel] Stat Lab 04/02/25 11:23 Completed Medical Decision Narrative: 03/25/2025, followed by Dr. Lee with [facility] who presents to the emergency department for vaginal bleeding. Patient states that she has continued to bleed since taking methotrexate and feels like it is more than it should be. She states that she is having kamran sized clots. She has had a pad for 2 hours currently and has not soaked through it. She denies any abdominal pain. She was seen by Dr. Lee on the and yesterday went to [place] emergency department was told that her beta-hCG has risen slightly to 407 and was 390s before that. She has been reading Reddit and is concerned that she might have a ruptured ectopic . On arrival, patient is hypertensive initial blood pressure 154/86, tachycardic, breathing comfortably on room air maintaining appropriate oxygen saturation, afebrile. Physical exam: As stated above, revealed a very anxious appearing female in no distress. She has no abdominal tenderness, guarding or distention. Cardiopulmonary exam is unremarkable. Differential diagnosis includes, but is not limited to: Methotrexate side effect, continuing evacuation of ectopic , low concern for ruptured ectopic as patient's abdomen is nontender she has not had any worsening abdominal pain throughout the bleeding. I do feel that the continued bleeding with blood clots is the expected side effect of the methotrexate that she was given on the . Will obtain quantitative beta-hCG to ensure that it is downtrending appropriately, CBC, CMP. Stable hemoglobin at 14.5, hematocrit 43.1. Patient does have low potassium at 2.9, will replace with 40 mill equivalents of potassium chloride. Anion gap barely mildly elevated at 15.9. CMP otherwise unremarkable nonactionable. Quantitative beta-hCG is continuing to downtrend appropriately at 353. I did discuss patient's case with Dr. Lee with the OB service who agreed with current plan and stated that she is to expect bleeding for the next 6 to 8 weeks. I do feel the patient's tachycardia is likely related to her anxiety as she is tearful and pacing the room. On reassessment, patient is still very anxious that her ectopic is going to rupture but there is low concern for any ruptured ectopic at this time given her reassuring abdominal exam and the fact that her beta-hCG is continue to downtrend appropriately. We did encourage her to follow-up with our behavioral health team for her anxiety as well as Dr. Lee's office. Strict return precautions were given. All questions were answered. She demonstrated understanding and was in agreement this plan. She was then discharged from the emergency department in stable condition. Critical Care Critical Care Time Critical Care Time: No
[2025-04-02 11:30] LABS: Hematocrit 43.1 % (37.0-47.0); Hemoglobin 14.5 g/dL (12.2-16.2); Immature Granulocytes % 0.2 %; Mean Corpuscular HGB Conc 33.6 g/dL (31.8-35.4); Mean Corpuscular Hemoglobin 29.2 pg (27.0-31.2); Mean Corpuscular Volume 86.7 fl (81-99); Nucleated Red Blood Cells % 0 %; Platelet Count 487 K/mm3 (142-424); Red Blood Count 4.97 M/mm3 (4.20-5.40); Red Cell Distribution Width-SD 40.1 fL; White Blood Count 8.0 K/mm3 (4.8-10.8)
[2025-04-02 12:42] LABS: Alanine Aminotransferase 21 U/L (12-78); Albumin Level 4.3 g/dl (3.5-5.0); Albumin/Globulin Ratio 1.0 (1.1-1.8); Alkaline Phosphatase 97 U/L (38-126); Anion Gap 15.9 mEq/L (5-15); Aspartate Amino Transferase 32 U/L (14-36); Bilirubin,Total 0.8 mg/dl (0.2-1.3); Blood Urea Nitrogen 10 mg/dl (7-17); Calcium 9.8 mg/dl (8.4-10.2); Carbon Dioxide 25 mmol/L (22.0-30.0); Chloride 100 mmol/L (98-107); Creatinine Clearance Estimated 116 mL/min (50-200); Creatinine,Serum 0.50 mg/dl (0.52-1.04); Estimated Glomerular Filt Rate 154 ml/min (>60); GFR (African American) 187 ML/MIN (>60); Globulin 4.3 g/dL (1.3-3.2); Glucose 115 mg/dl (74-100); Sodium 138 mmol/L (136-145); Total Protein,Serum 8.6 g/dl (6.3-8.2)
[2025-04-02 12:47] LABS: Potassium 2.9 mmoL/L (3.5-5.1)
[2025-04-02] MEDS: POTASSIUM CHLORIDE 20MEQ TAB 40 MEQ PO (13:00)
--- NOTE | 2025-04-02 13:08 | PC.NURSE ---
Called [facility], requested that Dr. Lee call Dr. Lucio.
--- NOTE | 2025-04-02 13:12 | PC.NURSE ---
Dr. Lucio speaking with Dr. Lee
[2025-04-02 13:29] VITALS: BP 132/76; PULSE 90; RESP 18; TEMP 36.7; O2SAT 100
== END 2025-04-02 13:31 | disposition home or self-care (01) ==
PROVIDERS: Emergency Provider Student in an Organized Health Care Education/Training Program; PCP Nurse Practitioner Family
DX: N93.8 Other specified abnormal uterine and vaginal bleeding (principal); E87.6 Hypokalemia; F41.9 Anxiety disorder, unspecified
CPT/HCPCS: 36415; 80053; 84702; 85025; 99283

== ENCOUNTER 2025-04-05 08:27 | Outpatient (CLI) | payer OTHER, SELFPAY ==
--- OUTSIDE RECORDS SUMMARY | 2025-03-27 19:35 | XMS_ITS | Encounter Summary ---
Author Organization Healthcare Address [address] [place] [address] Care Team Providers Care Vice President Of Academic Affairs Name Role Phone Sarika Moyer ISAIAH Primary Care Provider + Reason for Visit * Reason Comments Pelvic Pain Encounter Details Date Type Department Care Team (Late st Contact Info) Description 03/27/2025 8:35 PM EDT - 03/28/2025 1:22 AM EDT Emergency [facility] Emergency Department [address] [place] [address] Rose Cortes MD [address] [place] [address] of unknown anatomic location (Primary Dx) Discharge [...] as able. Please increase your water intake. [place] use of warm and/or cold compresses. Primary [...] here is available to you via the [employer] Internet portal. Please make sure that you [...] 24 y.o. with PUL [facility] who presents for RLQ pain. Patient reports that this is her first . She was having her beta hCG trended for pregnancyof unknown location, with the trend showing an inappropriate rise. Per [facility] records reviewed by ED MICHAEL, on 03/25/25 beta hCG was 568, down from 701. At this time patient received a dose of IM methotrexate. Yesterday morning/afternoon, patient reports that she had increased right lower quadrant/pelvic pain with associated nausea. At [facility] yesterday, beta hCG was found to be [...] - Patient with PUL being followed at [facility] - Beta hCG trend shown to be inappropriately rising > 03/17: 258 > 03/19: 276 > 03/20: 370 > 03/21: 342 > 03/24: 701 > 03/25: 568 -- Dose of methotrexate 03/25 -- > 03/27: 543 - Pt with increased RLQ pain 03/27 prompting her to present first to [facility] where beta was noted to have decreased slightly from 03/25. TVUS not directly reviewed, however records indicatea 1.5 cm unknown structure was seen in the R adnexa. - Patient was discharged home from [facility], but due to persistent pain presented to [...] with patient that her beta hCG at [facility] today was encouraging. Explained that often times [...] Dispo: stable for discharge home from a MANAGER POST standpoint. Thank you for including us in the care of this patient. This consult was staffed with Dr. Bowers. Please message on-call [facility] resident via [employer] Secure Chat or page [phone] (M-F 6a-6p) or [phone] (nights/weekends) for questions or concerns regarding this patient's care. Ivon Marmolejo MD PGY3 Obstetrics and Gynecology [1] Past Medical History: Diagnosis Date Other specified health status No pertinent past medical history [2] Past Surgical History: Procedure Laterality Date DENTAL SURGERY N/A Dental surgery from [facility] TONSILLECTOMY N/A Tonsillectomy from [facility] [3] Family History Problem Relation Name Age [...] SOA, and urinary symptoms. Medical records from [facility] reviewed: 03/26/2025 -- HCG trends recorded (03/17 -- 258, 03/19--276. 03/20--370. 03/21--342. 03/24--701. 03/25--568.), documented a 1gm Methotrexate given IM on 03/25/2025. 03/27/2025 -- TVUS with1.5cm unknown structure in the right adenxa, 03/27 -- HCG 543. 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 [place] Coma Scale Score: 15 ED Course & [...] Abnormality Status --------- ------ ED HIV 1/2 Antibody/Anti...[[id number]] Normal Final result Please view results for [...] 11:57 PM MDM: Patient seen by the [facility] physician and followed-up by myself. In summary: NARRATIVE: Patient is a 24-year-old female who presents with complaints of diffuse right-sided abdominal discomfort. Has been seen multiple times at [facility] and had HCGs done. Has not had an appropriate doubling. Was given a dose of IM methotrexate a couple of days ago. Had an ult rasound done earlier today which did still document a 1.5 cm mass in the right adnexa and hCG in the mid 500s. Patient otherwise had a reassuring exam and H&H and was discharged for outpatient professional tutor follow-up. Was offered some hydroxyzine at that time, but deferred. Patient presented to our ER for 2nd opinion of her own accord. H&H stable. HCG still in the 600range. Transvaginal ultrasound does not note a right adnexal mass at this time. Given unclear hCG trend and patient concern, professional tutor was consulted. Patient signed out pending final professional tutor recommendations. Clinical Impressions as of 03/28/2533 of [...] mg Oral Given Ivana Loredo PA-C EMR Dragon/Graphic Arts Technician disclaimer: Much of this encounter note is an electronic clinical rn of spoken language to printed text. Electronic clinical rn of spoken language may permit erroneous, or [...] as able. Please increase your water intake. [place] use of warm and/or cold compresses. Primary [...] here is available to you via the [employer] Internet portal. Please make sure that you are registered for access to this. Disposition Discharge AVS (Surinamese Snapshot) - Printed 03/28/2025 Follow-Ups Go to Sarika Moyer APRN; As needed Follow up with [facility] Obstetrics & Gynecology (Obstetrics and Gynecology) - [...] Reactive Non Reactive 03/27/2025 9:26 PM EDT [facility] Comment:Screening for HIV 1 & 2 antibodies, and P24 antigen is NONREACTIVE. No confirmatory testing is required. Blood Venous blood specimen / Unknown Venipuncture / Unknown 03/27/2025 8:31 PM EDT 03/27/2025 8:44 PM EDT Result [facility] us Rose Cortes MD LAB BLOOD ORDERABLES Final Resu lt [facility] [address] [place] [address] * Hepatitis C Antibody - ED (03/27/2025 8:31 PM EDT) Hepatitis C Antibody Negative Negative 03/27/2025 9:26 PM EDT [facility] Blood Venous blood specimen / Unknown Venipuncture / Unknown 03/27/2025 8:31 PM EDT 03/27/2025 8:44 PM EDT Result [facility] us Rose Cortes MD LAB BLOOD ORDERABLES Final Resu lt [facility] [address] [place] [address] * Type and screen (03/27/2025 8:31 PM [...] TEST ORDERABLES Final Result Performing Organization Address [facility] de Phone Number BLOOD BANK [address] [place] [address], [place] * (ABNORMAL) hCG, quantitative, (03/27/2025 8:31 PM EDT) hCG, Total Beta 626.2(H) <5 mIU/mL 03/27/2025 9:22 PM EDT [facility] Blood Venous blood specimen / Unknown Venipuncture / Unknown 03/27/2025 8:31 PM EDT 03/27/2025 8:41 PM EDT Narrative [facility] - 03/27/2025 9:22 PM [...] ORDERABLES Final Resu lt Performing Organization Address City/[facility]/ZIP Co de Phone Number [facility] [address] [place] [address] * (ABNORMAL) CBC w/diff (03/27/2025 8:31 PM EDT) WBC Count 11.76(H) 3.70 - 10.30 10*3/uL LAB HEMATOLOGY METHOD 03/27/2025 8:44 PM EDT [facility] RBC Count 4.82 3.90 - 5.20 10*6/uL LAB HEMATOLOGY METHOD 03/27/2025 8:44 PM EDT [facility] HGB 14.2 11.2 - 15.7 g/dL LAB HEMATOLOGY METHOD 03/27/2025 8:44 PM EDT [facility] HCT 39.9 34.0 - 45.0 % LAB HEMATOLOGY METHOD 03/27/2025 8:44 PM EDT [facility] Platelet Count 523(H) 155 - 369 10*3/uL LAB HEMATOLOGY METHOD 03/27/2025 8:44 PM EDT [facility] MCV 83 79 - 98 fL LAB HEMATOLOGY METHOD 03/27/2025 8:44 PM EDT [facility] MCH 29.5 26.0 - 32.0 pg LAB HEMATOLOGY METHOD 03/27/2025 8:44 PM EDT [facility] MCHC 35.6(H) 30.7 - 35.5 g/dL LAB HEMATOLOGY METHOD 03/27/2025 8:44 PM EDT [facility] RDW 12.2 11.5 - 14.5 % LAB HEMATOLOGY METHOD 03/27/2025 8:44 PM EDT [facility] MPV 9.3 8.8 - 12.5 fL LAB HEMATOLOGY METHOD 03/27/2025 8:44 PM EDT [facility] nRBC 0.0 <=0.0 per 100 WBCs LAB HEMATOLOGY METHOD 03/27/2025 8:44 PM EDT [facility] Differential Type Automated LAB HEMATOLOGY METHOD 03/27/2025 8:44 PM EDT [facility] Neutrophils % 71 % LAB HEMATOLOGY METHOD 03/27/2025 8:44 PM EDT [facility] Lymphocytes % 25 % LAB HEMATOLOGY METHOD 03/27/2025 8:44 PM EDT [facility] Monocytes % 4 % LAB HEMATOLOGY METHOD 03/27/2025 8:44 PM EDT [facility] Eosinophils % 0 % LAB HEMATOLOGY METHOD 03/27/2025 8:44 PM EDT [facility] Basophils % 0 % LAB HEMATOLOGY METHOD 03/27/2025 8:44 PM EDT [facility] Immature Granulocytes % 0 % LAB HEMATOLOGY METHOD 03/27/2025 8:44 PM EDT [facility] Neutrophils Absolute 8.17(H) 1.60 - 6.10 10*3/uL LAB HEMATOLOGY METHOD 03/27/2025 8:44 PM EDT [facility] Lymphocytes Absolute 2.96 1.20 - 3.90 10*3/uL LAB HEMATOLOGY METHOD 03/27/2025 8:44 PM EDT [facility] Monocytes Absolute 0.52 0.30 - 0.90 10*3/uL LAB HEMATOLOGY METHOD 03/27/2025 8:44 PM EDT [facility] Eosinophils Absolute 0.03 0.00 - 0.50 10*3/uL LAB HEMATOLOGY METHOD 03/27/2025 8:44 PM EDT [facility] Basophils Absolute 0.05 0.00 - 0.10 10*3/uL LAB HEMATOLOGY METHOD 03/27/2025 8:44 PM EDT [facility] Immature Granulocytes Absolute 0.03 0.00 - 0.06 10*3/uL LAB HEMATOLOGY METHOD 03/27/2025 8:44 PM EDT [facility] Blood Venous blood specimen / Unknown Venipuncture / Unknown 03/27/2025 8:31 PM EDT 03/27/2025 8:41 PM EDT Narrative [facility] - 03/27/2025 8:44 PM EDT Therapeutic decision making should be based on absolute values, rather than percentages. us Rose Cortes MD LAB BLOOD ORDERABLES Final Resu lt [facility] [address] [place] [address] * (ABNORMAL) CMP (03/27/2025 8:31 PM EDT) Glucose, Plasma 96 74 - 99 mg/dL 03/27/2025 9:22 PM EDT [facility] BUN, Plasma 11 7 - 21 mg/dL 03/27/2025 9:22 PM EDT [facility] Creatinine, Plasma 0.48(L) 0.60 - 1.10 mg/dL 03/27/2025 9:22 PM EDT [facility] BUN/Creatinine Ratio 23 03/27/2025 9:22 PM EDT [facility] Sodium, Plasma 136 136 - 145 mmol/L 03/27/2025 9:22 PM EDT [facility] Potassium, Plasma 3.1(L) 3.6 - 4.9 mmol/L 03/27/2025 9:22 PM EDT [facility] Chloride, Plasma 100 97 - 107 mmol/L 03/27/2025 9:22 PM EDT [facility] CO2, Plasma 20(L) 22 - 29 mmol/L 03/27/2025 9:22 PM EDT [facility] Anion Gap 16 6 - 16 mmol/L 03/27/2025 9:22 PM EDT [facility] Total Calcium, Plasma 9.8 8.9 - 10.2 mg/dL 03/27/2025 9:22 PM EDT [facility] Total Protein 7.7 6.3 - 7.9 g/dL 03/27/2025 9:22 PM EDT [facility] Albumin, Plasma 4.9 3.5 - 5.2 g/dL 03/27/2025 9:22 PM EDT [facility] AST, Plasma 17 10 - 35 U/L 03/27/2025 9:22 PM EDT [facility] ALT, Plasma 8(L) 10 - 35 U/L 03/27/2025 9:22 PM EDT [facility] Alkaline Phosphatase, Plasma 102 35 - 104 U/L 03/27/2025 9:22 PM EDT [facility] Total Bilirubin, Plasma 1.3(H) 0.2 - 1.1 mg/dL 03/27/2025 9:22 PM EDT [facility] eGFRcr 137.5 mL/min/1.7 3m*2 03/27/2025 9:22 PM EDT [facility] Comment:Reported eGFRcr in m L/min/1.73m2 is based the CKD-EPI 2020 equation that does not use a race coefficient. Blood Venous blood specimen / Unknown Venipuncture / Unknown 03/27/2025 8:31 PM EDT 03/27/2025 8:41 PM EDT us Rose Cortes MD LAB BLOOD ORDERABLES Final Resu lt [facility] [address] [place] [address] documented in this encounter Visit Diagnoses Diagnosis [...] Foss) documented in this encounter Care Teams Vice President Of Academic Affairs Relationship Specialty Start Date End Date Sarika Moyer APRN [address] [place] [id number] PCP - General 10/14/20 documented as of this encounter
--- OUTSIDE RECORDS SUMMARY | 2025-04-04 22:26 | XMS_ITS | Continuity of Care Document ---
Author Organization [facility] Phone Care Team Providers Care Medical Technical Writer Name Role Phone AARTI MCRAE Unavailable SOLE MACHADO Admitting Unavailable SOLE MACHADO Primary Attending Unavailable AARTI MCRAE Primary Care ALLERGIES AND ADVERSE REACTIONS ALLERGIES AND ADVERSE REACTIONS Code System Allergy Substance Adverse Reaction Date Reaction (Severity) Comment Status Reported By Updated By Lucia MALAGON (Free Text Allergy) Adverse reaction to substance Not Specified active [id number] on April 02, 2025 3:03:23 AM [facility] 330430 RXNorm Lexapro Adverse reaction to substance Not Specified active [id number] on April 02, 2025 3:03:22 AM [facility] RESULTS Patient: GALILEA Easton Date of : 2000 11 LABORATORY RESULTS ORDER 100: CBC AUTO W DIFF ( LOINC: 89139-7) ORDER DATE: April 02, 2025 2:58:00 AM [place] Specimen Source: EDTA Specimen Type: Blood specime n with EDTA PERFORMING LAB: [address] [id number] Result Comment: Final Result Date: April 02, [...] April 02, 2025 3:15:00 AM UTC (TECH: [employer]) 718-7 Hemoglobin [Mass/volume] in Blood N 12.9 gm/dl 12.5 gm/dl - 16.0 gm/dl April 02, 2025 3:15:00 AM UTC (TECH: [place]) 70596-2 Hematocrit [Volume Fraction] of Blood N 38.6 % 37.0 % - 47.0 % April 02, 2025 3:15:00 AM UTC (TECH: [employer]) 787-2 Erythrocyte mean corpuscular volume [Entitic volume] by Automated count N 86.0 fl 78 fl - 100 fl April 02, 2025 3:15:00 AM UTC (TECH: [employer]) 785-6 Erythrocyte mean corpuscular hemoglobin [Entitic mass] by Automated count N 28.7 pg 27 pg - 31 pg April 02, 2025 3:15:00 AM UTC (TECH: [employer]) 786-4 Erythrocyte mean corpuscular hemoglobin concentration [Mass/volume] by Automated count N 33.4 g/dl 32 g/dl - 36 g/dl April 02, 2025 3:15:00 AM UTC (TECH: [employer]) 47784-8 Erythrocyte distribution width [Ratio] N 12.8 % 11.5 % - 14.0 % April 02, 2025 3:15:00 AM UTC (TECH: [employer]) 777-3 Platelets [#/volume] in Blood by Automated count H 460 K/ul 150 K/ul - 450 K/ul April 02, 2025 3:15:00 AM UTC (TECH: [employer]) 51692-9 Platelet mean volume [Entitic volume] in Blood by Automated count N 9.2 fl 6 fl - 9.5 fl April 02, 2025 3:15:00 AM UTC (TECH: [employer]) 98214-9 Neutrophils/100 leukocytes in Blood N 51.7 % 43 % - 65 % April 02, 2025 3:15:00 AM UTC (TECH: [employer]) 736-9 Lymphocytes/100 leukocytes in Blood by Automated count N 38.1 % 20.5 % - 45.5 % April 02, 2025 3:15:00 AM UTC (TECH: [employer]) 5905-5 Monocytes/100 leukocytes in Blood by Automated [...] 02, 2025 3:15:00 AM UTC (TECH: [place]) 53483-7 Immature granulocytes/100 leukocytes in Blood by Automated count N 0.1 % 0.0 % - 0.8 % April 02, 2025 3:15:00 AM UTC (TECH: [place]) 20254-4 Nucleated cells [#/volume] in Blood N 0.0 % April 02, 2025 3:15:00 AM UTC (TECH: [place]) 27382-8 Neutrophils [#/volume] in Blood N 4.3 K/uL [...] 02, 2025 3:15:00 AM UTC (TECH: [place]) 17648-0 Immature granulocytes [#/volume] in Blood N 0.01 K/ul April 02, 2025 3:15:00 AM UTC (TECH: [employer]) 99078-5 Nucleated cells [#/volume] in Blood N 0.00 K/uL April 02, 2025 3:15:00 AM [place] (TECH: [place]) 01361-4 Manual Differential panel - Blood N NO April 02, 2025 3:15:00 AM [place] ([place]CH: [place]) ORDER 200: HCG BETA QUANT (L OINC: 10503-5) ORDER DATE: April 02, 2025 2:58:00 AM UT Specimen Source: PLASMA Specimen Type: Plasma specim en PERFORMING LAB: [address] [id number] Result Comment: Final Result Date: April 02, 2025 3:38:00 AM UT (TECH: ) LOINC TEST [place] [address]-4 Choriogonadotropin [Units/volume] in Serum or Plasma H 407 mIU/ml 0 mIU/ml - 5 mIU/ml April 02, 2025 3:38:00 AM UT (TECH: ) ORDER 300: COMP METABOLIC PA RODRICK (LOINC: 63959-8) ORDER DATE: April 02, 2025 2:58:00 AM UT Specimen Source: PLASMA Specimen Type: Plasma specim en PERFORMING LAB: [address] [id number] Result Comment: Final Result Date: April 02, 2025 3:33:00 AM [facility] (TECH: AY) LOINC TEST FLAG RESULT [...] 32.0 mmol/L April 02, 2025 3:29:00 AM [facility] (TECH: AY) 62045-2 Anion gap in Blood N 14.4 O ct2024 3:29:00 AM [facility] (TECH: AY) 2345-7 Glucose [Mass/volume ] in Serum or Plasma N 95 mg/dl 70 mg/dl - 120 mg/dl April 02, 2025 3:29:00 AM [facility] (TECH: AY) 6299-2 Urea nitrogen [Mass/volume] in Blood N 9 mg/dL 7 mg/dL - 18 mg/dL April 02, 2025 3:29:00 AM UT (TECH: AY) 40795-1 Creatinine [Moles/volume] in Blood L 0.5 mg/dL 0.6 mg/dL - 1.3 mg/dL April 02, 2025 3:29:00 AM [facility] (TECH: AY) 73600-7 Glomerular filtratio n rate/1.73 sq M.predicted by Creatinine-based formula (MDRD) N 136 mlpermin 60 mlpermin April 02, 2025 3:29:00 AM [facility] (TECH: AY) 31019-7 Osmolality of Serum or Plasma by calculated by sum of electrolytes N 290 mosm/kg 275 mosm/kg - 301 mosm/kg April 02, 2025 3:29:00 AM [facility] (TECH: AY) 2885-2 Protein [Mass/volume ] [...] N 3.1 April 02, 2025 3:33:00 AM [facility] (TECH: AY) 1759-0 Albumin/Globulin [Ma ss Ratio] in Serum or Plasma N 1.3 0.7 - 2 April 02, 2025 3:33:00 AM [facility] (TECH: AY) 52619-1 Calcium [Mass/volume ] in Serum or Plasma [...] AY) ORDER 400: URINALYSIS REFLEX MICROSCOPIC (LOINC: 57588-6) ORDER DATE: April 02, 2025 2:58:00 AM UTC Specimen Source: URINE Specimen Type: Urine specime n PERFORMING LAB: [address] [id number] Result Comment: Final Result Date: April 02, [...] 02, 2025 3:24:00 AM UTC (TECH: [place]) 84856-0 Bilirubin.total [Mass/volume] in Urine by Automated test strip N NEGATIVE NEGATIVE April 02, 2025 3:24:00 AM UTC (TECH: [place]) 5797-6 Ketones [Mass/volume ] in Urine by Test strip N NEGATIVE NEGATIVE April 02, 2025 3:24:00 AM UTC (TECH: [place]) 2965-2 Specific gravity of Urine H 1.025 1.01 6 - 1.022 April 02, 2025 3:24:00 AM UTC (TECH: [place]) 88856-6 Erythrocytes [#/volu me] in Urine by Automated test strip 250 NEGATIVE April 02, 2025 3:24:00 AM UTC (TECH: [place]) 81686-2 pH of Urine by Autom ated test strip N 6 5 - 9 April 02, 2025 3:24:00 AM UTC (TECH: [place]) 55782-4 Protein [Presence] i n Urine by Test strip N TNP NEGATIVE April 02, 2025 3:24:00 AM UTC (TECH: [place]) 47966-2 Urobilinogen [Mass/v olume] in Urine by Automated test strip 1 NORMAL April 02, 2025 3:24:00 AM UTC (TECH: [place]) 58152-4 Nitrate [Presence] i n Urine N NEGATIVE NEGATIVE April 02, 2025 3:24:00 AM UTC (TECH: [place]) 70798-0 Leukocytes [#/volume ] in Urine by Test strip 25 NEGATIVE April 02, 2025 3:24:00 AM UTC (TECH: [place]) 79046-8 Urinalysis dipstick W Reflex Culture panel - Urine N NO April 02, 2025 3:24:00 AM UTC (TECH: [place]) 04255-1 Erythrocytes [#/area ] in Urine sediment by Microscopy high power field 11-20 NONE SEEN April 02, 2025 3:24:00 AM UTC (TECH: [place]) 5821-4 Leukocytes [#/area] in Urine sediment by Microscopy high power field N 0-2 NONE SEEN April 02, 2025 3:24:00 AM UTC (TECH: [place]) 21621-1 Epithelial cells.squ amous [#/area] in Urine sediment [...] Dates Comments Reported By Updated By Active 805018 71226 99171 1 atorvastatin 80 mg tablet 0.0 ORAL BEDTIME Last Dose: [id number] on April 02, 2025 3:03:22 AM [facility] Active FreeT extMe d Cardizem oral 240mg 0.0 DAILY Last Dose: [id number] on April 02, 2025 3:03:23 AM [facility] Active 0918390 70050 54160 8 Eliquis 5 mg tablet 1.0 TAB ORAL DAILY Last Dose: [id number] on April 02, 2025 3:03:23 AM [facility] Active 474747 66758 48365 0 losartan 25 mg tablet 1.0 TAB ORAL DAILY Last Dose: [id number] on April 02, 2025 3:03:23 AM [facility] DISCHARGE MEDICATIONS Status RXNORM ND Medication Dose Route Frequency Dates Dis pense Data Comments Physician Updated By No Discharge Medication Info rmation Available INPATIENT MEDICATIONS Status RXNORM ND Medication Dose Route Frequency Rat e Quantity Dates Indication Dispense Data Comments Physician Updated By Lexi inued [id number] 8404 4036 009 potassium chloride (K-DUR) 20 MEQ TBCR 20.0 MEQ ORAL ONE TIME ONLY (SCHEDULED DOSE) Start: Octobe r 2024 3:55:0 0 AM [facility] End: Octobe r 2024 3:55:0 0 AM [facility] on April 02, 2025 3:55:00 AM [facility] SOCIAL HISTORY SOCIAL HISTORY - Smoking Status SNOMED-CT Social History Element Description Effective Dates Offered Cessation Comment Updated By [id number] Current Tobacco smoking status Never Smoked [id number] on April 02, 2025 3:03:39 AM [facility] [id number] Historical Tobacco smoking status Unknown If Ever Smoked [id number] on March 30, 2025 2:40:04 AM [facility] [id number] Historical Tobacco smoking status Current Every Day Smoker [id number] on August 01, 2024 8:52:23 AM [facility] SOCIAL HISTORY - Gender Sex: Female SOCIAL HISTORY - Status : status i nformation is not available Intention in Next Year: intention information is not available SOCIAL HISTORY - Assessments Code System Description Status Date Value of Assessment Updated By Comment Assessment Information is no t available SOCIAL HISTORY - Jena Affiliation Jena information is not av ailable SOCIAL HISTORY [...] for each vital sign as of April 05, 2025 3:26:21 AM UTC Loinc Code Vital Sign Activity Date Result Updated By 8302-2 Body height April 02, 2025 3:01:42 AM UTC 144.78 cm (57.0 in) [id number] on April 02, 2025 3:01:42 AM UTC 28181-9 Body mass index (BMI ) [Ratio] April 02, 2025 3:01:42 AM UTC 21.039 kg/m2 3140-1 Body Surface Area Derived From Formula April 02, 2025 3:01:42 AM UTC 1.3236 m2 8310-5 Body temperature April 02 2:57:00 AM UTC 98.1 [degF] 37088-2 Body weight Measured April 02, 2025 3:01:42 AM UTC 44.1 kg (97.0 lb) [id number] on April 02, 2025 3:01:42 AM UTC 8462-4 Diastolic blood pressure April 02, 2025 4:00:00 AM UTC 74.0 mm[Hg] 8867-4 Heart rate April 02, 2025 4:05:00 AM UTC 81 /min 47244-6 Oxygen saturation in Arterial blood by Pulse [...] BLEEDING Admission April 02, 2025 2:49:00 [place] [id number] [facility] [id number] Discharge April 02, 2025 4:10:00 AM UT DISCHARGED TO HOME OR SELF CARE ENCOUNTER DIAGNOSES Notes information is not clemente ilable. Code System Diagnosis Onset Date Diagnosis information is not available. ABSTRACT DIAGNOSES Code System Diagnosis Updated By Abatement Date O20.9 ICD10 HEMORRHAGE IN EA RLY , UNSPECIFIED [id number] on April 05, 2025 3:25:38 AM UT O20.0 ICD10 THREATENED [id number] on April 05, 2025 3:25:38 AM UT Z88.8 ICD10 ALLERGY STATUS T O OTHER DRUGS, MEDICAMENTS AND BIOLOGICAL SUBSTANCES [id number] on April 05, 2025 3:25:38 AM UT Z3A.00 ICD10 WEEKS OF GESTATI ON OF NOT SPECIFIED [id number] on April 05, 2025 3:25:38 AM [facility] CARE TEAM Care Medical Technical Writer Role AARTI MCRAE Referring SOEL MACHADO Admitting SOLE MACHADO Primary Attending AARTI MCRAE Primary Care CARE TEAM CARE ferruler Role on Team Location Telecom Status Start Date End Nickolas e Updated By CLEMENTINA Alarcon Referring normal April 02, 2025 4:02:55 AM UT April 02, 2025 4:10:00 AM UT [id number] on April 02, 2025 4:02:55 AM UT JEANNETTE RAMOS Attending normal April 02, 2025 4:02:55 AM UT April 02, 2025 4:10:00 AM UT [id number] on April 02, 2025 4:02:55 AM UT JEANNETTE RAMOS Admitting normal April 02, 2025 4:02:55 AM UT April 02, 2025 4:10:00 AM UT [id number] on April 02, 2025 4:02:55 AM [facility] CLEMENTINA Alarcon PCP normal April 02, 2025 2:49:51 AM UT April 02, 2025 4:10:00 AM UT [id number] on April 02, 2025 4:02:55 AM [facility]
--- OUTSIDE RECORDS SUMMARY | 2025-04-05 08:34 | XMS_ITS | Encounter Summary ---
Author Organization Healthcare Address [address] [id number] Care Team Providers Care Clinical Services Manager Name Role Phone Sarika Moyer AIRCONDITIONING ENGINEER Primary Care Provider + Encounter Details Date [...] as of this encounter Plan of Treatment Not on file documented as of this encounter Visit Diagnoses Not on filedocumented in this encounter Care Teams Clinical Services Manager Relationship Specialty Start Date End Date Sarika Moyer, AIRCONDITIONING ENGINEER [address] [place] [address] PCP - General 10/14/20 documented as of this encounter
--- OUTSIDE RECORDS SUMMARY | 2025-04-05 08:34 | XMS_ITS | Clinical Summary ---
Author Organization Healthcare Address [address] [id number] Care Team Providers Care Telephone Information Clerk Name Role Phone Sarika Moyer WINDOWS SERVER SUPPORT TECHNICIAN Primary Care Provider + Allergies Active Allergy Reactions Criticality Noted Date Comments Escitalopram Anaphylaxis High 03/27/2025 Robitussin Dm Max Day-Night Anxiety Low 03/27/20 Medications No known medications Active Problems Comments Yes No known active problems Encounters Date Type Department Care Team Description 03/27/2025 8:35 PM EDT - 03/28/2025 1:22 AM EDT Emergency [facility] [address] [place] [address] Rose Cortes MD of unknown anatomic location (Primary Dx) Discharge Disposition: Home or Self Care 03/27/2025 Travel 03/17/2025 Telephone Obstetrics & Gynecology [address] [place] [phone] Chiki Cardenas MD from Last 3 [...] Mass Index - - Plan of Treatment Health Maintenance Due Date Last Done Comments [facility]-Depression Screening 2002 [facility]-Infant/Child/Adol SDOH Screenings 2002 [facility]- SDOH Screenings 2020 [facility]-Adult SDOH Screenings 2020 [facility]-Pap Smear 2023 [facility]-DTaP,Tdap,and Td Vaccines (7 - Td or Tdap) 10/19/2024 10/19/2014, 05/21/2006, 08/26/2003, Additional history exists [id number]-13 Vaccine (1 - season) 2025 [facility]-Influenza Vaccine [...] Reactive Non Reactive 03/27/2025 9:26 PM EDT [facility] Comment:Screening for HIV 1 & 2 antibodies, and P24 antigen is NONREACTIVE. No confirmatory testing is required. Blood Venous blood specimen / Unknown Venipuncture / Unknown 03/27/2025 8:31 PM EDT 03/27/2025 8:44 PM EDT Rose Cortes MD LAB BLOOD ORDERABLES Final Resu lt [facility] [address] [place] [address] * Hepatitis C Antibody - ED (03/27/2025 8:31 PM EDT) Hepatitis C Antibody Negative Negative 03/27/2025 9:26 PM EDT [facility] Blood Venous blood specimen / Unknown Venipuncture / Unknown 03/27/2025 8:31 PM EDT 03/27/2025 8:44 PM EDT us Rose Cortes MD LAB BLOOD ORDERABLES Final Resu lt [facility] [address] [place] [address] * (ABNORMAL) CBC w/diff (03/27/2025 8:31 PM EDT) Pathologist [facility] [place] WBC Count 11.76(H) 3.70 - 10.30 10*3/uL LAB HEMATOLOGY METHOD 03/27/2025 8:44 PM EDT [facility] RBC Count 4.82 3.90 - 5.20 10*6/uL LAB HEMATOLOGY METHOD 03/27/2025 8:44 PM EDT [facility] HGB 14.2 11.2 - 15.7 g/dL LAB HEMATOLOGY METHOD 03/27/2025 8:44 PM EDT [facility] HCT 39.9 34.0 - 45.0 % LAB HEMATOLOGY METHOD 03/27/2025 8:44 PM EDT [facility] Platelet Count 523(H) 155 - 369 10*3/uL LAB HEMATOLOGY METHOD 03/27/2025 8:44 PM EDT [facility] MCV 83 79 - 98 fL LAB HEMATOLOGY METHOD 03/27/2025 8:44 PM EDT [facility] MCH 29.5 26.0 - 32.0 pg LAB HEMATOLOGY METHOD 03/27/2025 8:44 PM EDT [facility] MCHC 35.6(H) 30.7 - 35.5 g/dL LAB HEMATOLOGY METHOD 03/27/2025 8:44 PM EDT [facility] RDW 12.2 11.5 - 14.5 % LAB HEMATOLOGY METHOD 03/27/2025 8:44 PM EDT [facility] MPV 9.3 8.8 - 12.5 fL LAB HEMATOLOGY METHOD 03/27/2025 8:44 PM EDT [facility] nRBC 0.0 <=0.0 per 100 WBCs LAB HEMATOLOGY METHOD 03/27/2025 8:44 PM EDT [facility] Differential Type Automated LAB HEMATOLOGY METHOD 03/27/2025 8:44 PM EDT [facility] Neutrophils % 71 % LAB HEMATOLOGY METHOD 03/27/2025 8:44 PM EDT [facility] Lymphocytes % 25 % LAB HEMATOLOGY METHOD 03/27/2025 8:44 PM EDT [facility] Monocytes % 4 % LAB HEMATOLOGY METHOD 03/27/2025 8:44 PM EDT [facility] Eosinophils % 0 % LAB HEMATOLOGY METHOD 03/27/2025 8:44 PM EDT [facility] Basophils % 0 % LAB HEMATOLOGY METHOD 03/27/2025 8:44 PM EDT [facility] Immature Granulocytes % 0 % LAB HEMATOLOGY METHOD 03/27/2025 8:44 PM EDT [facility] Neutrophils Absolute 8.17(H) 1.60 - 6.10 10*3/uL LAB HEMATOLOGY METHOD 03/27/2025 8:44 PM EDT [facility] Lymphocytes Absolute 2.96 1.20 - 3.90 10*3/uL LAB HEMATOLOGY METHOD 03/27/2025 8:44 PM EDT [facility] Monocytes Absolute 0.52 0.30 - 0.90 10*3/uL LAB HEMATOLOGY METHOD 03/27/2025 8:44 PM EDT [facility] Eosinophils Absolute 0.03 0.00 - 0.50 10*3/uL LAB HEMATOLOGY METHOD 03/27/2025 8:44 PM EDT [facility] Basophils Absolute 0.05 0.00 - 0.10 10*3/uL LAB HEMATOLOGY METHOD 03/27/2025 8:44 PM EDT [facility] Immature Granulocytes Absolute 0.03 0.00 - 0.06 10*3/uL LAB HEMATOLOGY METHOD 03/27/2025 8:44 PM EDT [facility] Blood Venous blood specimen / Unknown Venipuncture / Unknown 03/27/2025 8:31 PM EDT 03/27/2025 8:41 PM EDT Narrative [facility] - 03/27/2025 8:44 PM EDT Therapeutic decision making should be based on absolute values, rather than percentages. Rose Cortes MD LAB BLOOD ORDERABLES Final Resu lt Performing Organization Address City/[facility]/ZIP Co de Phone Number [facility] [address] [place] [address] * Type and screen (03/27/2025 8:31 PM [...] TEST ORDERABLES Final Result Performing Organization Address [facility] de Phone Number BLOOD BANK [address] [place] [address] * (ABNORMAL) hCG, quantitative, (03/27/2025 8:31 PM EDT) hCG, Total Beta 626.2(H) <5 mIU/mL 03/27/2025 9:22 PM EDT [facility] Blood Venous blood specimen / Unknown Venipuncture / Unknown 03/27/2025 8:31 PM EDT 03/27/2025 8:41 PM EDT Narrative [facility] - 03/27/2025 9:22 PM EDT [...] MD LAB BLOOD ORDERABLES Final Resu lt [facility] [address] [place] [address] * (ABNORMAL) CMP (03/27/2025 8:31 PM EDT) Glucose, Plasma 96 74 - 99 mg/dL 03/27/2025 9:22 PM EDT [facility] BUN, Plasma 11 7 - 21 mg/dL 03/27/2025 9:22 PM EDT [facility] Creatinine, Plasma 0.48(L) 0.60 - 1.10 mg/dL 03/27/2025 9:22 PM EDT [facility] BUN/Creatinine Ratio 23 03/27/2025 9:22 PM EDT [facility] Sodium, Plasma 136 136 - 145 mmol/L 03/27/2025 9:22 PM EDT [facility] Potassium, Plasma 3.1(L) 3.6 - 4.9 mmol/L 03/27/2025 9:22 PM EDT [facility] Chloride, Plasma 100 97 - 107 mmol/L 03/27/2025 9:22 PM EDT [facility] CO2, Plasma 20(L) 22 - 29 mmol/L 03/27/2025 9:22 PM EDT [facility] Anion Gap 16 6 - 16 mmol/L 03/27/2025 9:22 PM EDT [facility] Total Calcium, Plasma 9.8 8.9 - 10.2 mg/dL 03/27/2025 9:22 PM EDT [facility] Total Protein 7.7 6.3 - 7.9 g/dL 03/27/2025 9:22 PM EDT [facility] Albumin, Plasma 4.9 3.5 - 5.2 g/dL 03/27/2025 9:22 PM EDT [facility] AST, Plasma 17 10 - 35 U/L 03/27/2025 9:22 PM EDT [facility] ALT, Plasma 8(L) 10 - 35 U/L 03/27/2025 9:22 PM EDT [facility] Alkaline Phosphatase, Plasma 102 35 - 104 U/L 03/27/2025 9:22 PM EDT [facility] Total Bilirubin, Plasma 1.3(H) 0.2 - 1.1 mg/dL 03/27/2025 9:22 PM EDT [facility] eGFRcr 137.5 mL/min/1.7 3m*2 03/27/2025 9:22 PM EDT [facility] Comment:Reported eGFRcr in m L/min/1.73m2 is based the CKD-EPI 2020 equation that does not use a race coefficient. Blood Venous blood specimen / Unknown Venipuncture / Unknown 03/27/2025 8:31 PM EDT 03/27/2025 8:41 PM EDT us Rose Cortes MD LAB BLOOD ORDERABLES Final Resu lt [facility] [address] [place] [address] from Last 3 Months Insurance [facility] MEDICAID Care Teams Telephone Information Clerk Relationship Specialty Start Date End Date Sarika Moyer APRN [address] [place] [id number] PCP - General 10/14/20
--- OUTSIDE RECORDS SUMMARY | 2025-04-05 08:35 | XMS_ITS | Encounter Summary ---
Author Organization Healthcare Address [address] [place] [address] Care Team Providers Care Directional Driller Name Role Phone Sarika Moyer METROLOGY TECHNICIAN Primary Care Provider + Encounter Details Date Type Department Care Team ([facility] st Contact Info) Description 03/17/2025 Telephone Obstetrics & Gynecology [address] [place] [phone] Chiki Cardenas MD [address] [place] [phone] Social History Tobacco Use Types [...] 11:49 AM EDT 03/17/25 [address] per Jina[facility] ZMT documented in this encounter Plan of Treatment Not on file documented as of this encounter Visit Diagnoses Not on filedocumented in this encounter Care Teams Directional Driller Relationship Specialty Start Date End Date Sarika Moyer APRN [address] [place] [address] PCP - General 10/14/20 documented as of this encounter
== END 2025-04-05 23:59 | disposition home or self-care (01) ==
LOC: LAB 08:27
PROVIDERS: PCP Nurse Practitioner Family; Visit Provider Nurse Practitioner Obstetrics & Gynecology
DX: O46.90 Antepartum hemorrhage, unspecified, unspecified trimester (principal); Z3A.00 Weeks of gestation of pregnancy not specified
CPT/HCPCS: 36415; 84702

== ENCOUNTER 2025-04-08 16:44 | Emergency (ER) | payer OTHER, SELFPAY ==
--- OUTSIDE RECORDS SUMMARY | 2025-03-27 19:35 | XMS_ITS | Encounter Summary ---
Author Organization Healthcare Address [address] [place] [address] Care Team Providers Care Hand Rigger Name Role Phone Sarika Moyer ISAIAH Primary Care Provider + Reason for Visit * Reason Comments Pelvic Pain Encounter Details Date Type Department Care Team (Late st Contact Info) Description 03/27/2025 8:35 PM EDT - 03/28/2025 1:22 AM EDT Emergency [facility] Emergency Department [address] [place] [address] Rose Cortes MD [address] [place] [address] of unknown anatomic location (Primary Dx) Discharge [...] as able. Please increase your water intake. [place] use of warm and/or cold compresses. Primary [...] here is available to you via the [employer] Internet portal. Please make sure that you [...] with PUL being followed at [facility] who presents for RLQ pain. Patient reports that this is her first . She was having her beta hCG trended for pregnancyof unknown location, with the trend showing an inappropriate rise. Per [facility] records reviewed by ED MICHAEL, on 03/25/25 beta hCG was 568, down from 701. At this time patient received a dose of IM methotrexate. Yesterday morning/afternoon, patient reports that she had increased right lower quadrant/pelvic pain with associated nausea. At [facility] yesterday, beta hCG was found to [...] - Patient with PUL being followed at [facility] - Beta hCG trend shown to be inappropriately rising > 03/17: 258 > 03/19: 276 > 03/20: 370 > 03/21: 342 > 03/24: 701 > 03/25: 568 -- Dose of methotrexate 03/25 -- > 03/27: 543 - Pt with increased RLQ pain 03/27 prompting her to present first to [facility] where beta was noted to have decreased slightly from 03/25. TVUS not directly reviewed, however records indicatea 1.5 cm unknown structure was seen in the R adnexa. - Patient was discharged home from [facility], but due to persistent pain presented [...] with patient that her beta hCG at [facility] today was encouraging. Explained that often [...] Dispo: stable for discharge home from a MANUFACTURING INDUSTRIAL ENGINEER standpoint. Thank you for including us in the care of this patient. This consult was staffed with Dr. Bowers. Please message on-call MANUFACTURING INDUSTRIAL ENGINEER resident via [employer] Secure Chat or page [phone] (M-F 6a-6p) or [phone] (nights/weekends) for questions or concerns regarding this patient's care. Ivon Marmolejo MD PGY3 Obstetrics and Gynecology [1] Past Medical History: Diagnosis Date Other specified health status No pertinent past medical history [2] Past Surgical History: Procedure Laterality Date DENTAL SURGERY N/A Dental surgery from [facility] TONSILLECTOMY N/A Tonsillectomy from [facility] [3] Family History Problem Relation Name Age [...] SOA, and urinary symptoms. Medical records from [facility] reviewed: 03/26/2025 -- HCG trends recorded (03/17 -- 258, 03/19--276. 03/20--370. 03/21--342. 03/24--701. 03/25--568.), documented a 1gm Methotrexate given IM on 03/25/2025. 03/27/2025 -- TVUS with1.5cm unknown structure in the right adenxa, 03/27 -- HCG 543. History provided by: Patient field secretary used: No Patient History Past Medical History[1] [...] does not include homicidal or suicidal ideation. [place] Coma Scale Score: 15 ED Course & [...] Abnormality Status --------- ------ ED HIV 1/2 Antibody/Anti...[[id number]] Normal Final result Please view results for [...] 11:57 PM MDM: Patient seen by the [facility] physician and followed-up by myself. In summary: NARRATIVE: Patient is a 24-year-old female who presents with complaints of diffuse right-sided abdominal discomfort. Has been seen multiple times at [facility] and had HCGs done. Has not had an appropriate doubling. Was given a dose of IM methotrexate a couple of days ago. Had an ult rasound done earlier today which did still document a 1.5 cm mass in the right adnexa and hCG in the mid 500s. Patient otherwise had a reassuring exam and H&H and was discharged for outpatient director pharmacovigilance follow-up. Was offered some hydroxyzine at that time, but deferred. Patient presented to our ER for 2nd opinion of her own accord. H&H stable. HCG still in the 600range. Transvaginal ultrasound does not note a right adnexal mass at this time. Given unclear hCG trend and patient concern, director pharmacovigilance was consulted. Patient signed out pending final director pharmacovigilance recommendations. Clinical Impressions as of 03/28/2533 of [...] mg Oral Given Ivana Loredo PA-C EMR Dragon/Venetian Blind Installer disclaimer: Much of this encounter note is an electronic link trainer maintenance worker of spoken language to printed text. Electronic link trainer maintenance worker of spoken language may permit erroneous, [...] as able. Please increase your water intake. [place] use of warm and/or cold compresses. Primary [...] here is available to you via the [employer] Internet portal. Please make sure that you are registered for access to this. Disposition Discharge AVS (Brazilian Snapshot) - Printed 03/28/2025 Follow-Ups Go to Sarika Moyer APRN; As needed Follow up with [facility] Obstetrics & Gynecology (Obstetrics and Gynecology) [...] Reactive Non Reactive 03/27/2025 9:26 PM EDT [facility] Comment:Screening for HIV 1 & 2 antibodies, and P24 antigen is NONREACTIVE. No confirmatory testing is required. Blood Venous blood specimen / Unknown Venipuncture / Unknown 03/27/2025 8:31 PM EDT 03/27/2025 8:44 PM EDT Result [facility] us Rose Cortes MD LAB BLOOD ORDERABLES Final Resu lt [facility] [address] [place] [address] * Hepatitis C Antibody - ED (03/27/2025 8:31 PM EDT) Hepatitis C Antibody Negative Negative 03/27/2025 9:26 PM EDT [facility] Blood Venous blood specimen / Unknown Venipuncture / Unknown 03/27/2025 8:31 PM EDT 03/27/2025 8:44 PM EDT Result [facility] us Rose Cortes MD LAB BLOOD ORDERABLES Final Resu lt [facility] [address] [place] [address] * Type and screen (03/27/2025 8:31 PM [...] TEST ORDERABLES Final Result Performing Organization Address [place] de Phone Number BLOOD BANK [address] [place] [address], [place] * (ABNORMAL) hCG, quantitative, (03/27/2025 8:31 PM EDT) hCG, Total Beta 626.2(H) <5 mIU/mL 03/27/2025 9:22 PM EDT [facility] Blood Venous blood specimen / Unknown Venipuncture / Unknown 03/27/2025 8:31 PM EDT 03/27/2025 8:41 PM EDT Narrative [facility] - 03/27/2025 9:22 PM [...] ORDERABLES Final Resu lt Performing Organization Address City/[facility]/ZIP Co de Phone Number [facility] [address] [place] [address] * (ABNORMAL) CBC w/diff (03/27/2025 8:31 PM EDT) WBC Count 11.76(H) 3.70 - 10.30 10*3/uL LAB HEMATOLOGY METHOD 03/27/2025 8:44 PM EDT [facility] RBC Count 4.82 3.90 - 5.20 10*6/uL LAB HEMATOLOGY METHOD 03/27/2025 8:44 PM EDT [facility] HGB 14.2 11.2 - 15.7 g/dL LAB HEMATOLOGY METHOD 03/27/2025 8:44 PM EDT [facility] HCT 39.9 34.0 - 45.0 % LAB HEMATOLOGY METHOD 03/27/2025 8:44 PM EDT [facility] Platelet Count 523(H) 155 - 369 10*3/uL LAB HEMATOLOGY METHOD 03/27/2025 8:44 PM EDT [facility] MCV 83 79 - 98 fL LAB HEMATOLOGY METHOD 03/27/2025 8:44 PM EDT [facility] MCH 29.5 26.0 - 32.0 pg LAB HEMATOLOGY METHOD 03/27/2025 8:44 PM EDT [facility] MCHC 35.6(H) 30.7 - 35.5 g/dL LAB HEMATOLOGY METHOD 03/27/2025 8:44 PM EDT [facility] RDW 12.2 11.5 - 14.5 % LAB HEMATOLOGY METHOD 03/27/2025 8:44 PM EDT [facility] MPV 9.3 8.8 - 12.5 fL LAB HEMATOLOGY METHOD 03/27/2025 8:44 PM EDT [facility] nRBC 0.0 <=0.0 per 100 WBCs LAB HEMATOLOGY METHOD 03/27/2025 8:44 PM EDT [facility] Differential Type Automated LAB HEMATOLOGY METHOD 03/27/2025 8:44 PM EDT [facility] Neutrophils % 71 % LAB HEMATOLOGY METHOD 03/27/2025 8:44 PM EDT [facility] Lymphocytes % 25 % LAB HEMATOLOGY METHOD 03/27/2025 8:44 PM EDT [facility] Monocytes % 4 % LAB HEMATOLOGY METHOD 03/27/2025 8:44 PM EDT [facility] Eosinophils % 0 % LAB HEMATOLOGY METHOD 03/27/2025 8:44 PM EDT [facility] Basophils % 0 % LAB HEMATOLOGY METHOD 03/27/2025 8:44 PM EDT [facility] Immature Granulocytes % 0 % LAB HEMATOLOGY METHOD 03/27/2025 8:44 PM EDT [facility] Neutrophils Absolute 8.17(H) 1.60 - 6.10 10*3/uL LAB HEMATOLOGY METHOD 03/27/2025 8:44 PM EDT [facility] Lymphocytes Absolute 2.96 1.20 - 3.90 10*3/uL LAB HEMATOLOGY METHOD 03/27/2025 8:44 PM EDT [facility] Monocytes Absolute 0.52 0.30 - 0.90 10*3/uL LAB HEMATOLOGY METHOD 03/27/2025 8:44 PM EDT [facility] Eosinophils Absolute 0.03 0.00 - 0.50 10*3/uL LAB HEMATOLOGY METHOD 03/27/2025 8:44 PM EDT [facility] Basophils Absolute 0.05 0.00 - 0.10 10*3/uL LAB HEMATOLOGY METHOD 03/27/2025 8:44 PM EDT [facility] Immature Granulocytes Absolute 0.03 0.00 - 0.06 10*3/uL LAB HEMATOLOGY METHOD 03/27/2025 8:44 PM EDT [facility] Blood Venous blood specimen / Unknown Venipuncture / Unknown 03/27/2025 8:31 PM EDT 03/27/2025 8:41 PM EDT Narrative [facility] - 03/27/2025 8:44 PM EDT Therapeutic decision making should be based on absolute values, rather than percentages. us Rose Cortes MD LAB BLOOD ORDERABLES Final Resu lt [facility] [address] [place] [address] * (ABNORMAL) CMP (03/27/2025 8:31 PM EDT) Glucose, Plasma 96 74 - 99 mg/dL 03/27/2025 9:22 PM EDT [facility] BUN, Plasma 11 7 - 21 mg/dL 03/27/2025 9:22 PM EDT [facility] Creatinine, Plasma 0.48(L) 0.60 - 1.10 mg/dL 03/27/2025 9:22 PM EDT [facility] BUN/Creatinine Ratio 23 03/27/2025 9:22 PM EDT [facility] Sodium, Plasma 136 136 - 145 mmol/L 03/27/2025 9:22 PM EDT [facility] Potassium, Plasma 3.1(L) 3.6 - 4.9 mmol/L 03/27/2025 9:22 PM EDT [facility] Chloride, Plasma 100 97 - 107 mmol/L 03/27/2025 9:22 PM EDT [facility] CO2, Plasma 20(L) 22 - 29 mmol/L 03/27/2025 9:22 PM EDT [facility] Anion Gap 16 6 - 16 mmol/L 03/27/2025 9:22 PM EDT [facility] Total Calcium, Plasma 9.8 8.9 - 10.2 mg/dL 03/27/2025 9:22 PM EDT [facility] Total Protein 7.7 6.3 - 7.9 g/dL 03/27/2025 9:22 PM EDT [facility] Albumin, Plasma 4.9 3.5 - 5.2 g/dL 03/27/2025 9:22 PM EDT [facility] AST, Plasma 17 10 - 35 U/L 03/27/2025 9:22 PM EDT [facility] ALT, Plasma 8(L) 10 - 35 U/L 03/27/2025 9:22 PM EDT [facility] Alkaline Phosphatase, Plasma 102 35 - 104 U/L 03/27/2025 9:22 PM EDT [facility] Total Bilirubin, Plasma 1.3(H) 0.2 - 1.1 mg/dL 03/27/2025 9:22 PM EDT [facility] eGFRcr 137.5 mL/min/1.7 3m*2 03/27/2025 9:22 PM EDT [facility] Comment:Reported eGFRcr in m L/min/1.73m2 is based the CKD-EPI 2020 equation that does not use a race coefficient. Blood Venous blood specimen / Unknown Venipuncture / Unknown 03/27/2025 8:31 PM EDT 03/27/2025 8:41 PM EDT us Rose Cortes MD LAB BLOOD ORDERABLES Final Resu lt [facility] [address] [place] [address] documented in this encounter Visit Diagnoses Diagnosis [...] Foss) documented in this encounter Care Teams Hand Rigger Relationship Specialty Start Date End Date Sarika Moyer APRN [address] [place] [id number] PCP - General 10/14/20 documented as of this encounter
--- OUTSIDE RECORDS SUMMARY | 2025-04-05 22:43 | XMS_ITS | Encounter Summary ---
Author Organization [employer] ([place], [place], [place], [place], [place]) Address [address] [place] [address] Care Team Providers Care Auto Technician Mechanic Name Role Phone Sarika Moyer APRN Primary [...] EST - 04/06/2025 2:31 AM EST Emergency [facility] Emergency Department [address] [place] [phone] Keke Gar MD [address] [place] [address] Ectopic (Primary Dx) Discharge Disposition: Home or [...] be sent through Care Everywhere. * Ectopic [id number] (Belgian) documented in this encounter ED Notes * [...] are negative. Physical Exam ED Triage Vitals [04/05/259] Encounter Vitals Group BP (!) 128/90 Girls [...] Color, UA Yellow Clarity, UA Clear Specific [place], UA 1.025 1.002 - 1.030 pH, UA [...] doctor Call today Next Steps: Follow up NG LAYER documented in this encounter Plan of Treatment [...] Authenticated and Keke Gar MD [facility] [place] Edited Result - Final * (ABNORMAL) Comprehensive metabolic panel (04/05/2025 11:30 PM EST) Sodium 140 136 - 145 meq/L 04/06/2025 12:03 AM [facility] Potassium 3.3(L) 3.5 - 5.1 meq/L 04/06/2025 12:03 AM [facility] Chloride 102 98 - 107 meq/L 04/06/2025 12:03 AM [facility] CO2 25 21 - 32 meq/L 04/06/2025 12:03 AM [facility] Calcium 9.5 8.5 - 10.1 mg/dL 04/06/2025 12:03 AM [facility] Glucose 106(H) 74 - 100 mg/dL 04/06/2025 12:03 AM [facility] BUN 12 7 - 18 mg/dL 04/06/2025 12:03 AM [facility] Creatinine 0.60 0.55 - 1.10 mg/dL 04/06/2025 12:03 AM [facility] BUN/Creatinine 20 04/06/2025 12:03 AM [facility] Albumin 4.5 3.4 - 5.0 g/dL 04/06/2025 12:03 AM [facility] Alkaline Phosphatase 91 46 - 116 U/L 04/06/2025 12:03 AM [facility] ALT 10(L) 12 - 78 U/L 04/06/2025 12:03 AM [facility] AST 14(L) 15 - 37 U/L 04/06/2025 12:03 AM [facility] Total Bilirubin 0.3 0.2 - 1.0 mg/dL 04/06/2025 12:03 AM [facility] Protein, Total 8.0 6.4 - 8.2 gm/dL 04/06/2025 12:03 AM [facility] Anion Gap 16 11 - 22 04/06/2025 12:03 AM [facility] A/G Ratio 1.3 04/06/2025 12:03 AM [facility] Globulin 3.5 g/dL 04/06/2025 12:03 AM [facility] Osmolality Calc 279.6 mOsm/kg 12:03 AM [facility] eGFR (mL/min/1.73m2) >60 >=60 mL/min/1.7 3m2 04/06/2025 12:03 AM [facility] Comment:ESTIMATED GFR IS NOT ACCURATE CREATININE CLEARANCE IN PREDICTING GLOMERULAR FILTRATION RATE. ESTIMATED GFR IS NOT APPLICABLE FOR DIALYSIS PATIENTS. Blood Venipuncture / Unknown 04/05/2025 11:30 PM EST 04/05/2025 11:41 PM EST us Keke Gar MD LAB BLOOD ORDERABLES Lainye mckay Result [facility] [address] [id number] [phone] * (ABNORMAL) CBC with Auto Diff (04/05/2025 11:30 PM EST) WBC 9.8 4.8 - 10.8 K/ L 04/05/2025 11:45 PM [facility] RBC 4.72 3.50 - 5.20 M/ L 04/05/2025 11:45 PM [facility] Hemoglobin 13.8 11.7 - 15.8 GM/DL 04/05/2025 11:45 PM [facility] Hematocrit 40.9 35.0 - 47.0 % 04/05/2025 11:45 PM [facility] MCV 87 81 - 101 fL 04/05/2025 11:45 PM [facility] MCH 29.2 27.0 - 34.0 pg 04/05/2025 11:45 PM [facility] MCHC 33.7 32.0 - 36.0 GM/DL 04/05/2025 11:45 PM [facility] RDW 13.1 11.5 - 14.5 % 04/05/2025 11:45 PM [facility] Platelets 511(H) 150 - 400 K/CU MM 04/05/2025 11:45 PM [facility] MPV 9.2(L) 9.4 - 12.4 fL 04/05/2025 11:45 PM [facility] Nucleated Red Blood Cell 0.0 0 - 0.2 % 04/05/2025 11:45 PM [facility] % Neutros 65 37 - 80 % 04/05/2025 11:45 PM [facility] % Lymphs 27 10 - 50 % 04/05/2025 11:45 PM [facility] % Monos 6 5 - 13 % 04/05/2025 11:45 PM [facility] % Eos 0.8 0.0 - 7.0 % 04/05/2025 11:45 PM [facility] % Baso 1 0 - 3 % 04/05/2025 11:45 PM [facility] NRBC Absolute <0.01 0 - 0.012 K/ul 04/05/2025 11:45 PM [facility] # Neutros 6.35 2.00 - 6.90 K/ L 04/05/2025 11:45 PM EST [facility] # Lymphs 2.68 0.60 - 3.40 K/ L 04/05/2025 11:45 PM EST [facility] # Monos 0.62 0.00 - 0.90 K/ L 04/05/2025 11:45 PM EST [facility] # Eos 0.08 0.00 - 0.70 K/ L 04/05/2025 11:45 PM EST [facility] # Baso 0.05 0.00 - 0.20 K/ L 04/05/2025 11:45 PM EST [facility] % Imm Grans 0.20 % 04/05/2025 11:45 PM EST [facility] # IG 0.02(H) 0.00 - 0.00 K/uL 04/05/2025 11:45 PM EST [facility] Blood Venipuncture / Unknown 04/05/2025 11:30 PM EST 04/05/2025 11:41 PM EST Narrative [facility] - 04/05/2025 11:45 PM EST [...] MD LAB BLOOD ORDERABLES Lainey l Result [facility] [address] [place], [place] [id number], [facility] [phone] * (ABNORMAL) Urinalysis w/Microscopic (04/05/2025 11:04 PM EST) Color, UA Yellow 04/05/2025 11:43 PM EST [facility] Clarity, UA Clear 04/05/2025 11:43 PM [facility] Specific [place], UA 1.025 1.002 - 1.030 04/05/2025 11:43 PM [facility] pH, UA 6.0 5.0 - 9.0 04/05/2025 11:43 PM [facility] Leukocytes, UA Negative Negative 04/05/2025 11:43 PM [facility] Nitrite, UA Negative Negative 04/05/2025 11:43 PM [facility] Protein, UA 1+(A) Negative 04/05/2025 11:43 PM [facility] Glucose, UA Negative Negative 04/05/2025 11:43 PM [facility] Ketones, UA Trace(A) Negative 04/05/2025 11:43 PM [facility] Urobilinogen, UA 0.2 mg/dL Normal 04/05/2025 11:43 PM [facility] Bilirubin, UA Negative Negative 04/05/2025 11:43 PM [facility] Blood, UA 3+(A) Negative 04/05/2025 11:43 PM [facility] RBC, UA 5-10(A) None Seen, Rare /HPF 04/05/2025 11:43 PM [facility] WBC, UA 0-5 None Seen, Occasional , 0-5 /HPF 04/05/2025 11:43 PM [facility] Bacteria, UA 2+(A) None Seen 04/05/2025 11:43 PM [facility] Mucus 1+(A) Trace 04/05/2025 11:43 PM [facility] SQUAMOUS EPITHELIAL 0-5(A) None Seen, Rare /HPF 04/05/2025 11:43 PM [facility] Ca Oxalate [place], UA 2+(A) (none) 04/05/2025 11:43 PM [facility] Specimen Source Urine, Clean Catch 04/05/2025 11:43 PM [facility] Urine URINE SPECIMEN COLLECTION, CLEAN CATCH / Unknown 04/05/2025 11:04 PM EST 04/05/2025 11:04 PM EST us Keke Gar MD URINE ORDERABLES Final Re sult [facility] [address] [id number], [facility] [phone] documented in this encounter Visit Diagnoses Diagnosis Ectopic - Primary Unspecified ectopic without intrauterine documented in this encounter Care Teams Auto Technician Mechanic Relationship Specialty Start Date End Date Sarika Moyer, DRAGLINE MECHANIC [address] [place] [address] PCP - General Nurse Practitioner 04/05/25 documented as of this encounter
[2025-04-08 16:52] VITALS: BP 128/83; PULSE 104
--- OUTSIDE RECORDS SUMMARY | 2025-04-08 16:52 | XMS_ITS | Clinical Summary ---
Author Organization Healthcare Address [address] [id number] Care Team Providers Care Engineer Of System Development Name Role Phone Sarika Moyer INDUSTRIAL PSYCHOLOGY PROFESSOR Primary Care Provider + Allergies Active Allergy Reactions Criticality Noted Date Comments Escitalopram Anaphylaxis High 03/27/2025 Robitussin Dm Max Day-Night Anxiety Low 03/27/20 Medications No known medications Active Problems Comments Yes No known active problems Encounters Date Type Department Care Team Description 03/27/2025 8:35 PM EDT - 03/28/2025 1:22 AM EDT Emergency [facility] Emergency Department [address] [place] [address] Rose Cortes MD of unknown anatomic location (Primary Dx) Discharge Disposition: Home or Self Care 03/27/2025 Travel 03/17/2025 Telephone Obstetrics & Gynecology [address] [place] [phone] Chiki Cardenas MD from Last 3 [...] 10/19/2024 10/19/2014, 05/21/2006, 08/26/2003, Additional history exists [id number] Vaccine (1 - season) 2025 UKY-Influenza Vaccine [...] 03/27/2025 11:50 PM Final report signed by Lleia Lacy MD on 03/27/2025 11:57 PM Narrative [...] Reactive Non Reactive 03/27/2025 9:26 PM EDT [facility] Comment:Screening for HIV 1 & 2 antibodies, and P24 antigen is NONREACTIVE. No confirmatory testing is required. Blood Venous blood specimen / Unknown Venipuncture / Unknown 03/27/2025 8:31 PM EDT 03/27/2025 8:44 PM EDT Rose Cortes MD LAB BLOOD ORDERABLES Final Resu lt [facility] [address] [place] [address] * Hepatitis C Antibody - ED (03/27/2025 8:31 PM EDT) Hepatitis C Antibody Negative Negative 03/27/2025 9:26 PM EDT [facility] Blood Venous blood specimen / Unknown Venipuncture / Unknown 03/27/2025 8:31 PM EDT 03/27/2025 8:44 PM EDT us Rose Cortes MD LAB BLOOD ORDERABLES Final Resu lt [facility] [address] [place] [address] * (ABNORMAL) CBC w/diff (03/27/2025 8:31 PM EDT) Pathologist [facility] WBC Count 11.76(H) 3.70 - 10.30 10*3/uL LAB HEMATOLOGY METHOD 03/27/2025 8:44 PM EDT [facility] RBC Count 4.82 3.90 - 5.20 10*6/uL LAB HEMATOLOGY METHOD 03/27/2025 8:44 PM EDT [facility] HGB 14.2 11.2 - 15.7 g/dL LAB HEMATOLOGY METHOD 03/27/2025 8:44 PM EDT [facility] HCT 39.9 34.0 - 45.0 % LAB HEMATOLOGY METHOD 03/27/2025 8:44 PM EDT [facility] Platelet Count 523(H) 155 - 369 10*3/uL LAB HEMATOLOGY METHOD 03/27/2025 8:44 PM EDT [facility] MCV 83 79 - 98 fL LAB HEMATOLOGY METHOD 03/27/2025 8:44 PM EDT [facility] MCH 29.5 26.0 - 32.0 pg LAB HEMATOLOGY METHOD 03/27/2025 8:44 PM EDT [facility] MCHC 35.6(H) 30.7 - 35.5 g/dL LAB HEMATOLOGY METHOD 03/27/2025 8:44 PM EDT [facility] RDW 12.2 11.5 - 14.5 % LAB HEMATOLOGY METHOD 03/27/2025 8:44 PM EDT [facility] MPV 9.3 8.8 - 12.5 fL LAB HEMATOLOGY METHOD 03/27/2025 8:44 PM EDT [facility] nRBC 0.0 <=0.0 per 100 WBCs LAB HEMATOLOGY METHOD 03/27/2025 8:44 PM EDT [facility] Differential Type Automated LAB HEMATOLOGY METHOD 03/27/2025 8:44 PM EDT [facility] Neutrophils % 71 % LAB HEMATOLOGY METHOD 03/27/2025 8:44 PM EDT [facility] Lymphocytes % 25 % LAB HEMATOLOGY METHOD 03/27/2025 8:44 PM EDT [facility] Monocytes % 4 % LAB HEMATOLOGY METHOD 03/27/2025 8:44 PM EDT [facility] Eosinophils % 0 % LAB HEMATOLOGY METHOD 03/27/2025 8:44 PM EDT [facility] Basophils % 0 % LAB HEMATOLOGY METHOD 03/27/2025 8:44 PM EDT [facility] Immature Granulocytes % 0 % LAB HEMATOLOGY METHOD 03/27/2025 8:44 PM EDT [facility] Neutrophils Absolute 8.17(H) 1.60 - 6.10 10*3/uL LAB HEMATOLOGY METHOD 03/27/2025 8:44 PM EDT [facility] Lymphocytes Absolute 2.96 1.20 - 3.90 10*3/uL LAB HEMATOLOGY METHOD 03/27/2025 8:44 PM EDT [facility] Monocytes Absolute 0.52 0.30 - 0.90 10*3/uL LAB HEMATOLOGY METHOD 03/27/2025 8:44 PM EDT [facility] Eosinophils Absolute 0.03 0.00 - 0.50 10*3/uL LAB HEMATOLOGY METHOD 03/27/2025 8:44 PM EDT [facility] Basophils Absolute 0.05 0.00 - 0.10 10*3/uL LAB HEMATOLOGY METHOD 03/27/2025 8:44 PM EDT [facility] Immature Granulocytes Absolute 0.03 0.00 - 0.06 10*3/uL LAB HEMATOLOGY METHOD 03/27/2025 8:44 PM EDT [facility] Blood Venous blood specimen / Unknown Venipuncture / Unknown 03/27/2025 8:31 PM EDT 03/27/2025 8:41 PM EDT Narrative [facility] - 03/27/2025 8:44 PM EDT Therapeutic decision making should be based on absolute values, rather than percentages. Rose Cortes MD LAB BLOOD ORDERABLES Final Resu lt Performing Organization Address City/[facility]/ZIP Co de Phone Number [facility] [address] [place] [address] * Type and screen (03/27/2025 8:31 PM [...] TEST ORDERABLES Final Result Performing Organization Address [facility] de Phone Number BLOOD BANK [address] [place] [address] * (ABNORMAL) hCG, quantitative, (03/27/2025 8:31 PM EDT) hCG, Total Beta 626.2(H) <5 mIU/mL 03/27/2025 9:22 PM EDT [facility] Blood Venous blood specimen / Unknown Venipuncture / Unknown 03/27/2025 8:31 PM EDT 03/27/2025 8:41 PM EDT Narrative [facility] - 03/27/2025 9:22 PM [...] MD LAB BLOOD ORDERABLES Final Resu lt [facility] [address] [place] [address] * (ABNORMAL) CMP (03/27/2025 8:31 PM EDT) Glucose, Plasma 96 74 - 99 mg/dL 03/27/2025 9:22 PM EDT [facility] BUN, Plasma 11 7 - 21 mg/dL 03/27/2025 9:22 PM EDT [facility] Creatinine, Plasma 0.48(L) 0.60 - 1.10 mg/dL 03/27/2025 9:22 PM EDT [facility] BUN/Creatinine Ratio 23 03/27/2025 9:22 PM EDT [facility] Sodium, Plasma 136 136 - 145 mmol/L 03/27/2025 9:22 PM EDT [facility] Potassium, Plasma 3.1(L) 3.6 - 4.9 mmol/L 03/27/2025 9:22 PM EDT [facility] Chloride, Plasma 100 97 - 107 mmol/L 03/27/2025 9:22 PM EDT [facility] CO2, Plasma 20(L) 22 - 29 mmol/L 03/27/2025 9:22 PM EDT [facility] Anion Gap 16 6 - 16 mmol/L 03/27/2025 9:22 PM EDT [facility] Total Calcium, Plasma 9.8 8.9 - 10.2 mg/dL 03/27/2025 9:22 PM EDT [facility] Total Protein 7.7 6.3 - 7.9 g/dL 03/27/2025 9:22 PM EDT [facility] Albumin, Plasma 4.9 3.5 - 5.2 g/dL 03/27/2025 9:22 PM EDT [facility] AST, Plasma 17 10 - 35 U/L 03/27/2025 9:22 PM EDT [facility] ALT, Plasma 8(L) 10 - 35 U/L 03/27/2025 9:22 PM EDT [facility] Alkaline Phosphatase, Plasma 102 35 - 104 U/L 03/27/2025 9:22 PM EDT [facility] Total Bilirubin, Plasma 1.3(H) 0.2 - 1.1 mg/dL 03/27/2025 9:22 PM EDT [facility] eGFRcr 137.5 mL/min/1.7 3m*2 03/27/2025 9:22 PM EDT [facility] Comment:Reported eGFRcr in m L/min/1.73m2 is based the CKD-EPI 2020 equation that does not use a race coefficient. Blood Venous blood specimen / Unknown Venipuncture / Unknown 03/27/2025 8:31 PM EDT 03/27/2025 8:41 PM EDT us Rose Cortes MD LAB BLOOD ORDERABLES Final Resu lt [facility] [address] [place] [address] from Last 3 Months Insurance [facility] MEDICAID Care Teams Engineer Of System Development Relationship Specialty Start Date End Date Sarika Moyer APRN [address] [place] [phone] PCP - General 10/14/20
--- OUTSIDE RECORDS SUMMARY | 2025-04-08 16:52 | XMS_ITS | Referral Summary ---
Author Organization [employer] ([place], [place], [place], [place], [place]) Address [address] [place] [address] Care Team Providers Care Commercial Estimator Name Role Phone Sarika Moyer Dorian COLON Primary Care Provider + Encounters Date Type Department Care Team Description 04/05/2025 10:43 PM EST - 04/06/2025 2:31 AM EST Emergency [facility] Emergency Department [address] [place] [address] Keke Gar MD Ectopic (Primary Dx) Discharge Disposition: Home or Self Care 04/05/2025 Travel from Last 3 Months Allergies Active Allergy Reactions Criticality Noted Date Comments Escitalopram 04/05/2025 Acetaminophen-Dm 04/05/2025 Medications No known medications Social History Tobacco Use Types Packs/Day Years [...] Mass Index 19.91 04/05/2025 10:45 PM EST Plan of Treatment Not on file Procedures Procedure Name Priority Date/Time Associated Diagnosis Comments US OB TRANSVAGINAL STAT 04/06/2025 12 :35 AM EST COMPREHENSIVE METABOLIC PANEL STAT 04/05/2025 11:30 PM EST CBC W/ AUTO DIFF STAT 04/05/2025 11:3 0 PM EST URINALYSIS W/ MICROSCOPIC STAT 04/05/2025 11:04 PM EST from Last 3 Months Results * US OB transvaginal (04/06/2025 12:35 [...] and gynecologic consultation recommended. IMPRESSION: Authenticated and us Keke Gar MD [facility] US ORDERABLES Edited Result - Final * (ABNORMAL) CBC with Auto Diff (04/05/2025 11:30 PM EST) WBC 9.8 4.8 - 10.8 K/ L 04/05/2025 11:45 PM [facility] RBC 4.72 3.50 - 5.20 M/ L 04/05/2025 11:45 PM [facility] Hemoglobin 13.8 11.7 - 15.8 GM/DL 04/05/2025 11:45 PM [facility] Hematocrit 40.9 35.0 - 47.0 % 04/05/2025 11:45 PM [facility] MCV 87 81 - 101 fL 04/05/2025 11:45 PM [facility] MCH 29.2 27.0 - 34.0 pg 04/05/2025 11:45 PM [facility] MCHC 33.7 32.0 - 36.0 GM/DL 04/05/2025 11:45 PM [facility] RDW 13.1 11.5 - 14.5 % 04/05/2025 11:45 PM [facility] Platelets 511(H) 150 - 400 K/CU MM 04/05/2025 11:45 PM [facility] MPV 9.2(L) 9.4 - 12.4 fL 04/05/2025 11:45 PM [facility] Nucleated Red Blood Cell 0.0 0 - 0.2 % 04/05/2025 11:45 PM [facility] % Neutros 65 37 - 80 % 04/05/2025 11:45 PM [facility] % Lymphs 27 10 - 50 % 04/05/2025 11:45 PM [facility] % Monos 6 5 - 13 % 04/05/2025 11:45 PM [facility] % Eos 0.8 0.0 - 7.0 % 04/05/2025 11:45 PM [facility] % Baso 1 0 - 3 % 04/05/2025 11:45 PM [facility] NRBC Absolute <0.01 0 - 0.012 K/ul 04/05/2025 11:45 PM EST [facility] # Neutros 6.35 2.00 - 6.90 K/ L 04/05/2025 11:45 PM EST [facility] # Lymphs 2.68 0.60 - 3.40 K/ L 04/05/2025 11:45 PM EST [facility] # Monos 0.62 0.00 - 0.90 K/ L 04/05/2025 11:45 PM EST [facility] # Eos 0.08 0.00 - 0.70 K/ L 04/05/2025 11:45 PM EST [facility] # Baso 0.05 0.00 - 0.20 K/ L 04/05/2025 11:45 PM EST [facility] % Imm Grans 0.20 % 04/05/2025 11:45 PM EST [facility] # IG 0.02(H) 0.00 - 0.00 K/uL 04/05/2025 11:45 PM EST [facility] Blood Venipuncture / Unknown 04/05/2025 11:30 PM EST 04/05/2025 11:41 PM EST Narrative [facility] - 04/05/2025 11:45 PM EST [...] MD LAB BLOOD ORDERABLES Lainey mckay Result [facility] [address] [place], [place] [address] [phone] * (ABNORMAL) Comprehensive metabolic panel (04/05/2025 11:30 PM EST) Pathologist [facility] Sodium 140 136 - 145 meq/L 04/06/2025 12:03 AM [facility] Potassium 3.3(L) 3.5 - 5.1 meq/L 04/06/2025 12:03 AM [facility] Chloride 102 98 - 107 meq/L 04/06/2025 12:03 AM [facility] CO2 25 21 - 32 meq/L 04/06/2025 12:03 AM [facility] Calcium 9.5 8.5 - 10.1 mg/dL 04/06/2025 12:03 AM [facility] Glucose 106(H) 74 - 100 mg/dL 04/06/2025 12:03 AM [facility] BUN 12 7 - 18 mg/dL 04/06/2025 12:03 AM [facility] Creatinine 0.60 0.55 - 1.10 mg/dL 04/06/2025 12:03 AM [facility] BUN/Creatinine 20 04/06/2025 12:03 AM [facility] Albumin 4.5 3.4 - 5.0 g/dL 04/06/2025 12:03 AM [facility] Alkaline Phosphatase 91 46 - 116 U/L 04/06/2025 12:03 AM [facility] ALT 10(L) 12 - 78 U/L 04/06/2025 12:03 AM [facility] AST 14(L) 15 - 37 U/L 04/06/2025 12:03 AM [facility] Total Bilirubin 0.3 0.2 - 1.0 mg/dL 04/06/2025 12:03 AM [facility] Protein, Total 8.0 6.4 - 8.2 gm/dL 04/06/2025 12:03 AM [facility] Anion Gap 16 11 - 04/06/2025 12:03 AM [facility] A/G Ratio 1.3 04/06/2025 12:03 AM [facility] Globulin 3.5 g/dL 04/06/2025 12:03 AM [facility] Osmolality Calc 279.6 mOsm/kg 12:03 AM EST [facility] eGFR (mL/min/1.73m2) >60 >=60 mL/min/1.7 3m2 04/06/2025 12:03 AM EST [facility] Comment:ESTIMATED GFR IS NOT ACCURATE CREATININE CLEARANCE IN PREDICTING GLOMERULAR FILTRATION RATE. ESTIMATED GFR IS NOT APPLICABLE FOR DIALYSIS PATIENTS. Blood Venipuncture / Unknown 04/05/2025 11:30 PM EST 04/05/2025 11:41 PM EST us Keke Gar MD LAB BLOOD ORDERABLES Lainey mckay Result [facility] [address] [place], [place] [id number], [facility] [phone] * (ABNORMAL) Urinalysis w/Microscopic (04/05/2025 11:04 PM EST) Color, UA Yellow 04/05/2025 11:43 PM [facility] Clarity, UA Clear 04/05/2025 11:43 PM [facility] Specific Closplint, UA 1.025 1.002 - 1.030 04/05/2025 11:43 PM [facility] pH, UA 6.0 5.0 - 9.0 04/05/2025 11:43 PM [facility] Leukocytes, UA Negative Negative 04/05/2025 11:43 PM [facility] Nitrite, UA Negative Negative 04/05/2025 11:43 PM [facility] Protein, UA 1+(A) Negative 04/05/2025 11:43 PM [facility] Glucose, UA Negative Negative 04/05/2025 11:43 PM [facility] Ketones, UA Trace(A) Negative 04/05/2025 11:43 PM [facility] Urobilinogen, UA 0.2 mg/dL Normal 04/05/2025 11:43 PM [facility] Bilirubin, UA Negative Negative 04/05/2025 11:43 PM EST [facility] Blood, UA 3+(A) Negative 04/05/2025 11:43 PM EST [facility] RBC, UA 5-10(A) None Seen, Rare /HPF 04/05/2025 11:43 PM EST [facility] WBC, UA 0-5 None Seen, Occasional , 0-5 /HPF 04/05/2025 11:43 PM EST [facility] Bacteria, UA 2+(A) None Seen 04/05/2025 11:43 PM EST [facility] Mucus 1+(A) Trace 04/05/2025 11:43 PM EST [facility] SQUAMOUS EPITHELIAL 0-5(A) None Seen, Rare /HPF 04/05/2025 11:43 PM EST [facility] Ca Oxalate [place], UA 2+(A) (none) 04/05/2025 11:43 PM EST [facility] Specimen Source Urine, Clean Catch 04/05/2025 11:43 PM EST [facility] Urine URINE SPECIMEN COLLECTION, CLEAN CATCH / Unknown 04/05/2025 11:04 PM EST 04/05/2025 11:04 PM EST us Keke Gar MD URINE ORDERABLES Final Re sult [facility] [address] [phone] from Last 3 Months Insurance [facility] Care Teams Commercial Estimator Relationship Specialty Start Date End Date Sarika Moyer, [employer] [address] [place] [address] PCP - General Nurse Practitioner 04/05/25
--- OUTSIDE RECORDS SUMMARY | 2025-04-08 16:52 | XMS_ITS | Encounter Summary ---
Author Organization Healthcare Address [address] [id number] Care Team Providers Care Community Board Member Name Role Phone Sarika Moyer MASONRY CONTRACTOR Primary Care Provider + Encounter Details Date [...] on filedocumented in this encounter Care Teams Community Board Member Relationship Specialty Start Date End Date Sarika Moyer, MASONRY CONTRACTOR [address] [place] [address] PCP - General 10/14/20 documented as of this encounter
--- OUTSIDE RECORDS SUMMARY | 2025-04-08 16:52 | XMS_ITS | Encounter Summary ---
Author Organization [employer] ([place], [place], [place], [place], [place]) Address [address] [place] [address] Care Team Providers Care Sales Route Driver Name Role Phone Sarika Moyer TWIST TESTER Primary Care Provider + Encounter Details Date Type Department Care Team (Latest Contact Info) Description 04/05/2025 Travel Social History Tobacco Use Types Packs/Day Years Used Date Smoking Tobacco: Every Day Cigarettes Smokeless Tobacco: Never Comments:Pt vapes Alcohol Use Standard Drinks/Week Comments [...] filedocumented in this encounter Care Teams Sales Route Driver Relationship Specialty Start Date End Date Sarika Moyer APRN [address] [place] [address] PCP - General Nurse Practitioner 04/05/25 documented as of this encounter
--- OUTSIDE RECORDS SUMMARY | 2025-04-08 16:53 | XMS_ITS | Clinical Summary ---
Author Organization [employer] ([place], [place], [place], [place], [place]) Address [address] [place] [address] Care Team Providers Care Soap Press Feeder Name Role Phone Sarika Moyer Dorian COLON Primary Care Provider + Allergies Active Allergy Reactions Criticality Noted Date Comments Escitalopram 04/05/2025 Acetaminophen-Dm 04/05/2025 Medications No known medications Encounters Date Type Department Care Team Description 04/05/2025 10:43 PM EST - 04/06/2025 2:31 AM EST Emergency [facility] Emergency Department [address] [place] [phone] Keke Gar MD Ectopic (Primary Dx) Discharge Disposition: Home or Self Care 04/05/2025 Travel from Last 3 Months Social History Tobacco Use Types Packs/Day Years [...] 04/05/2025 10:45 PM EST Plan of Treatment Health Maintenance Due Date Last Done Comments Depression Screening (12+) 2014 Tobacco Cessation Counseling and Screening (12+) 2014 Meningococcal B Vaccine (1 of 2 - Standard) 2018 Pap Smear 2023 DTAP/TDAP/TD VACCINES (7 - Td or Tdap) 10/19/2024 10/19/2014, 05/21/2006, 08/26/2003, Additional history exists COVID-19 VACCINE ( - season) 2025 Influenza Vaccine (#1) 2025 Pneumococcal Vaccine: 0-49 Years Aged Out 05/31/2003, 2002, 2002, Additional history [...] IMPRESSION: Authenticated and us Keke Gar MD [facility] US ORDERABLES Edited Result - Final * (ABNORMAL) CBC with Auto Diff (04/05/2025 11:30 PM EST) WBC 9.8 4.8 - 10.8 K/ L 04/05/2025 11:45 PM [facility] RBC 4.72 3.50 - 5.20 M/ L 04/05/2025 11:45 PM [facility] Hemoglobin 13.8 11.7 - 15.8 GM/DL 04/05/2025 11:45 PM [facility] Hematocrit 40.9 35.0 - 47.0 % 04/05/2025 11:45 PM [facility] MCV 87 81 - 101 fL 04/05/2025 11:45 PM [facility] MCH 29.2 27.0 - 34.0 pg 04/05/2025 11:45 PM [facility] MCHC 33.7 32.0 - 36.0 GM/DL 04/05/2025 11:45 PM [facility] RDW 13.1 11.5 - 14.5 % 04/05/2025 11:45 PM [facility] Platelets 511(H) 150 - 400 K/CU MM 04/05/2025 11:45 PM [facility] MPV 9.2(L) 9.4 - 12.4 fL 04/05/2025 11:45 PM EST [facility] Nucleated Red Blood Cell 0.0 0 - 0.2 % 04/05/2025 11:45 PM EST [facility] % Neutros 65 37 - 80 % 04/05/2025 11:45 PM [facility] % Lymphs 27 10 - 50 % 04/05/2025 11:45 PM EST [facility] % Monos 6 5 - 13 % 04/05/2025 11:45 PM EST [facility] % Eos 0.8 0.0 - 7.0 % 04/05/2025 11:45 PM [facility] % Baso 1 0 - 3 % 04/05/2025 11:45 PM [facility] NRBC Absolute <0.01 0 - 0.012 K/ul 04/05/2025 11:45 PM [facility] # Neutros 6.35 2.00 - 6.90 K/ L 04/05/2025 11:45 PM EST [facility] # Lymphs 2.68 0.60 - 3.40 K/ L 04/05/2025 11:45 PM [facility] # Monos 0.62 0.00 - 0.90 K/ L 04/05/2025 11:45 PM [facility] # Eos 0.08 0.00 - 0.70 K/ L 04/05/2025 11:45 PM EST [facility] # Baso 0.05 0.00 - 0.20 K/ L 04/05/2025 11:45 PM EST [facility] % Imm Grans 0.20 % 04/05/2025 11:45 PM [facility] # IG 0.02(H) 0.00 - 0.00 K/uL 04/05/2025 11:45 PM [facility] Blood Venipuncture / Unknown 04/05/2025 11:30 PM EST 04/05/2025 11:41 PM EST [facility] - 04/05/2025 11:45 PM EST When [...] Keke Gar MD LAB BLOOD ORDERABLES Lainey nely Result [facility] [address] [phone] * (ABNORMAL) Comprehensive metabolic panel (04/05/2025 11:30 PM EST) Sodium 140 136 - 145 meq/L 04/06/2025 12:03 AM [facility] Potassium 3.3(L) 3.5 - 5.1 meq/L 04/06/2025 12:03 AM [facility] Chloride 102 98 - 107 meq/L 04/06/2025 12:03 AM [facility] CO2 25 21 - 32 meq/L 04/06/2025 12:03 AM [facility] Calcium 9.5 8.5 - 10.1 mg/dL 04/06/2025 12:03 AM [facility] Glucose 106(H) 74 - 100 mg/dL 04/06/2025 12:03 AM [facility] BUN 12 7 - 18 mg/dL 04/06/2025 12:03 AM [facility] Creatinine 0.60 0.55 - 1.10 mg/dL 04/06/2025 12:03 AM [facility] BUN/Creatinine 20 04/06/2025 12:03 AM [facility] Albumin 4.5 3.4 - 5.0 g/dL 04/06/2025 12:03 AM [facility] Alkaline Phosphatase 91 46 - 116 U/L 04/06/2025 12:03 AM [facility] ALT 10(L) 12 - 78 U/L 04/06/2025 12:03 AM [facility] AST 14(L) 15 - 37 U/L 04/06/2025 12:03 AM [facility] Total Bilirubin 0.3 0.2 - 1.0 mg/dL 04/06/2025 12:03 AM [facility] Protein, Total 8.0 6.4 - 8.2 gm/dL 04/06/2025 12:03 AM [facility] Anion Gap 16 11 - 22 04/06/2025 12:03 AM [facility] A/G Ratio 1.3 04/06/2025 12:03 AM [facility] Globulin 3.5 g/dL 04/06/2025 12:03 AM [facility] Osmolality Calc 279.6 mOsm/kg 12:03 AM [facility] eGFR (mL/min/1.73m2) >60 >=60 mL/min/1.7 3m2 04/06/2025 12:03 AM [facility] Comment:ESTIMATED GFR IS NOT ACCURATE CREATININE CLEARANCE IN PREDICTING GLOMERULAR FILTRATION RATE. ESTIMATED GFR IS NOT APPLICABLE FOR DIALYSIS PATIENTS. Blood Venipuncture / Unknown 04/05/2025 11:30 PM EST 04/05/2025 11:41 PM EST us Keke Gar MD LAB BLOOD ORDERABLES Lainey l Result [facility] [address] [place] [address] * (ABNORMAL) Urinalysis w/Microscopic (04/05/2025 11:04 PM EST) Color, UA Yellow 04/05/2025 11:43 PM [facility] Clarity, UA Clear 04/05/2025 11:43 PM [facility] Specific [place], UA 1.025 1.002 - 1.030 04/05/2025 11:43 PM [facility] pH, UA 6.0 5.0 - 9.0 04/05/2025 11:43 PM [facility] Leukocytes, UA Negative Negative 04/05/2025 11:43 PM [facility] Nitrite, UA Negative Negative 04/05/2025 11:43 PM [facility] Protein, UA 1+(A) Negative 04/05/2025 11:43 PM [facility] Glucose, UA Negative Negative 04/05/2025 11:43 PM [facility] Ketones, UA Trace(A) Negative 04/05/2025 11:43 PM [facility] Urobilinogen, UA 0.2 mg/dL Normal 04/05/2025 11:43 PM [facility] Bilirubin, UA Negative Negative 04/05/2025 11:43 PM [facility] Blood, UA 3+(A) Negative 04/05/2025 11:43 PM [facility] RBC, UA 5-10(A) None Seen, Rare /HPF 04/05/2025 11:43 PM [facility] WBC, UA 0-5 None Seen, Occasional , 0-5 /HPF 04/05/2025 11:43 PM [facility] Bacteria, UA 2+(A) None Seen 04/05/2025 11:43 PM [facility] Mucus 1+(A) Trace 04/05/2025 11:43 PM [facility] SQUAMOUS EPITHELIAL 0-5(A) None Seen, Rare /HPF 04/05/2025 11:43 PM [facility] Ca Oxalate [place], UA 2+(A) (none) 04/05/2025 11:43 PM [facility] Specimen Source Urine, Clean Catch 04/05/2025 11:43 PM [facility] Urine URINE SPECIMEN COLLECTION, CLEAN CATCH / Unknown 04/05/2025 11:04 PM EST 04/05/2025 11:04 PM EST us Keke Gar MD URINE ORDERABLES Final Re sult [facility] [address] [place] [address], [facility] [phone] from Last 3 Months Insurance [facility] Care Teams Soap Press Feeder Relationship Specialty Start Date End Date Sarika Moyer, WAIST FITTER [address] [place] [address] PCP - General Nurse Practitioner 04/05/25
--- OUTSIDE RECORDS SUMMARY | 2025-04-08 16:53 | XMS_ITS | Encounter Summary ---
Author Organization Healthcare Address [address] [place] [address] Care Team Providers Care Director Of Market Analysis Name Role Phone Sarika Moyer GARMENT FITTER Primary Care Provider + Encounter Details Date Type Department Care Team ([facility] st Contact Info) Description 03/17/2025 Telephone Obstetrics & Gynecology [address] [place] [address] Chiki Cardenas MD [address] [place] [address] Social History Tobacco Use Types [...] on filedocumented in this encounter Care Teams Director Of Market Analysis Relationship Specialty Start Date End Date Sarika Moyer APRN [address] [place] [address] PCP - General 10/14/20 documented as of this encounter
[2025-04-08 16:55] VITALS: BP 128/83; PULSE 114; RESP 20; TEMP 37; O2SAT 99; BMI 19.0
--- NOTE | 2025-04-08 17:00 | ED_ITS ---
<Statement entered by Andrea Lucio MD - 04/08/25 20:07> I was consulted by the DOMINGA, and we discussed the complexity of the problems being addressed. I approve the treatment and management plan for this patient's care in the emergency department, thus performing a substantive portion of the medical decision making. Andrea Lucio MD Discharge Plan Disposition Patient Disposition: Home, Self-Care Condition: Good Prescriptions Prescriptions: No Action hydroxyzine HCl 25 mg tablet 25 mg PO HS Qty: 30 0RF Referrals Follow up/Referrals: Sarika Moyer APRN [Primary Care Provider, Medical] - See instructions Marlin Lee DO [Staff Physician, INSTALLATION SERVICE REPRESENTATIVE] - See instructions Activity Restrictions/Add. Instructions Additional Instructions/Restrictions: Please return to the emergency department with any worsening signs or symptoms. I would recommend calling your INSTALLATION SERVICE REPRESENTATIVE office first thing tomorrow morning to schedule an appointment tomorrow morning/afternoon. Please continue to take all medication as prescribed. Please refrain from sexual intercourse until follow- up with INSTALLATION SERVICE REPRESENTATIVE. Clinical Impressions Clinical Impression: Pain in rectum Print Language Print Language: Thai Discharge ED Provider: Andrea Lucio General Adult HPI General Chief complaint: PAIN Stated complaint: Rectal Pain & Eptopic Time Seen by Provider: 04/08/25 16:47 Mode of Arrival: Ambulatory Source of Information: Patient Description of Symptoms (Recalled from ER Triage Doc. by RN): PT PRESENTS TO ED FOR RECTAL PAIN THAT BEGAN LAST NIGHT WHILE AT REST. PT REPORTS HARDER THAN USUAL STOOLS. STATES SHE WAS RECENTLY TREATED FOR ECTOPIC AND WAS ADVISED THAT RECTAL PAIN DURING THIS TREATMENT WAS SOMETHING TO WATCH OUT FOR. History of Present Illness HPI narrative: 24-year-old female presents the emergency department accompanied by her significant other for rectal pain that started last night, patient does admit to frequent straining and attempting to have a bowel movement, last bowel movement was this morning but she states it was less than her normal. Patient tells me that she is worried about having a good bowel movement, and she has been holding it , because she believes that her ectopic will rupture . Patient denies any fever chills chest pain shortness of breath, denies any nausea vomiting denies any really any overt abdominal pain, denies any hematochezia, denies any hematuria, hematemesis or hemoptysis, denies any melena, denies any urinary type symptomatology, does have some residual vaginal bleeding, but she states it is less than a period , and is much improved over the last several weeks. Patient does have previous diagnosis of ectopic in the right adnexa, patient has been seen multiple times in the emergency department as well as INSTALLATION SERVICE REPRESENTATIVE clinic consultation over the last month for similar complaint. Patient was treated with methotrexate, beta-hCG that was 180 and value on 04/05/2025 at INSTALLATION SERVICE REPRESENTATIVE office. Patient is quite anxious at patient is a current everyday smoker (vapes), denies any alcohol or other drug use, past medical history consistent with anxiety otherwise unremarkable. Initial triage vitals notable for tachycardia otherwise unremarkable. Also of note, patient tells me she was seen at OSH at what she believes was 04/03/2025, where she had a transvaginal US performed which showed stable appearance of previously documented ectopic , also of note patient has had multiple transvaginal ultrasounds in the emergency department as well as INSTALLATION SERVICE REPRESENTATIVE office over the last month. Please note that above description of symptoms, in this electronic medical record under categorization of recalled from ER triage doctor by RN are reflective of an initial nursing assessment, however, is not reflective of my full history and physical exam that was personally taken and clarified. Consequentially, this preceding description of symptoms, which may include the patient's categorized chief complaint in the EMR, do not reflect my personal clinical impression, and the ultimate description of history of present illness and patient stated complaints should be deferred to this section of the note. Unless stated otherwise or congruent with this section of the note, additional signs, symptoms, or incongruence should be interpreted as inaccurate with my clinical impression. Onset (ago): hour(s) Related Data Previous Rx's ?Medication ?Instructions ?Recorded hydroxyzine HCl 25 mg tablet 25 mg PO HS #30 tabs 03/04 09/25 Allergies Allergy/AdvReac Type Severity Reaction Status Date / Time dextromethorphan Allergy Unknown Verified 03/31/25 10:28 allergy reaction guaifenesin (From Robitussin) Allergy Unknown Verified 03/31/25 10:28 allergy reaction PFSH PFS Disclaimer: The information contained in this section may have been updated after the patient was seen, as this information can be updated by other users. Medical History No significant medical problems Surgical History History of tonsillectomy and adenoidectomy H/O oral surgery Family History (Updated 04/08/25 @ 16:55 by Marguerite Francisco RN) Other No significant family history Social History Smoking Status: Current every day smoker tobacco type: e-cigarettes alcohol intake: never current occupational status: employed Travel in the last 8 weeks?: None household members: spouse Have you lived/traveled outside US in past 30 days?: No Contact w/someone who lives/traveled outside US past 30 days?: No Exposure to someone with infectious disease in past 14 days?: No Do you have a fever (greater than 100.4 F or 38 C)?: No Have you tested positive for COVID-19?: No Exposed to someone with COVID-19 in past 14 days?: No Do you have a sore throat?: No Do you have a cough?: No Do you have any weakness?: No Do you have any diarrhea?: No Are you experiencing any unusual bleeding?: No Do you have any muscle aches/pain?: No Do you have any abdominal pain?: No Are you experiencing loss of taste or smell?: No ROS Obtained: Yes All systems reviewed & no additional complaints except as documented Physical Exam General General appearance: alert and in no apparent distress Head Head exam: atraumatic and normocephalic Eye Eye exam: Present PERRL and EOMI ENT ENT exam: Present mucous membranes moist Neck Neck exam: Present normal inspection Chest Chest inspection: Present normal inspection and symmetric chest wall rise Respiratory Respiratory exam: Present normal lung sounds bilaterally; Absent respiratory distress Cardiovascular Cardiovascular exam: Present regular rate and normal rhythm Abdominal Exam Abdominal exam: Present soft; Absent tenderness, guarding, rebound or rigidity Rectal Exam Rectal exam: Present normal inspection; Absent hemorrhoids, mass or tenderness comment: I along with female nurse aerodynamics engineer performed rectal examination no hemorrhoids no mass no tenderness no anal fissure, no anal rectal fistula, negative rectal exam Extremities Exam Extremities exam: Present normal inspection Neurological Exam Neurological exam: Present alert and oriented X3 Psychiatric Psychiatric exam: Present normal affect Skin Skin exam: Present warm and dry Medical Decision Making Medical Records Medical records reviewed: Yes I reviewed the patient's medical records. Screening: Per USPSTF and CDC recommendations, given the prevalence of disease in our region, it is our hospital?s policy to screen for HIV and viral Hepatitis for all patients aged 18 and over and those with ongoing risk factors. Lucho Inquiry Pt receiving controlled substance: No Lucho was queried for this patient: No Vital Signs: 04/08/25 16:52 04/08/25 16:55 04/08/25 16:55 Temperature 98.6 F 98.6 F Temperature Source Oral Pulse Rate 104 H 114 H Pulse Rate [Right] 114 H Respiratory Rate 20 20 Blood Pressure 128/83 128/83 Blood Pressure [Right Arm] 128/83 Blood Pressure Mean 99 Blood Pressure Mean [Right Arm] 98 02 Sat by Pulse Oximetry 99 99 04/08/25 17:24 Temperature Temperature Source Pulse Rate Pulse Rate [Right] Respiratory Rate Blood Pressure 124/78 Blood Pressure [Right Arm] Blood Pressure Mean 93 Blood Pressure Mean [Right Arm] 02 Sat by Pulse Oximetry Lab Data Lab results reviewed: Yes I reviewed the patient's lab results. Lab Results 04/08/25 16:50: Urine Color Yellow, Urine Appearance Sl cloudy, Urine pH 7.0, Ur Specific [place] 1.015, Urine Protein Negative, Urine Glucose (UA) Negative, Urine Ketones Negative, Urine Blood 3+ A, Urine Nitrate Negative, Urine Bilirubin Negative, Urine Urobilinogen 2.0, Ur Leukocyte Esterase Negative, Urine RBC 3-5, Urine WBC 3-5, Ur Squamous Epith Cells 50-100, Amorphous Sediment 4+, Urine Bacteria 1+ 04/08/25 17:05: WBC 9.9, RBC 4.50, Hgb 13.1, Hct 39.6, MCV 88.0, MCH 29.1, MCHC 33.1, RDW 13.1, Plt Count 499 H, MPV 9.2, Neut % (Auto) 63.4, Lymph % (Auto) 28.0, [place] % (Auto) 6.7, Eos % (Auto) 1.2, Baso % (Auto) 0.5, Neut # (Auto) 6.3, Lymph # (Auto) 2.8, [place] # (Auto) 0.7, Eos # (Auto) 0.1, Baso # (Auto) 0.1, PT 12.3, INR 1.12 H, Sodium 141, Potassium 3.6, Chloride 102, Carbon Dioxide 29, Anion Gap 13.6, BUN 14, Creatinine 0.50 L, Estimated Creat Clear 111, Estimated GFR 154, Est GFR ( Amer) 187, Glucose 107 H, Calcium 9.1, Total Bilirubin 0.7, AST 26, ALT 16, Alkaline Phosphatase 66, Total Protein 7.7, Albumin 5.4 H, Globulin 2.3, Albumin/Globulin Ratio 2.3 H, Lipase 58, HCG, Quant 202 H 04/08/25 17:05 04/08/25 17:05 Orders (Tests/Meds): ORDERS Category Date Time Status Complete Blood Count Auto Diff Stat Lab 04/08/25 17:05 Completed Comprehensive Metabolic Panel Stat Lab 04/08/25 17:05 Completed HCG,Quantitative Stat Lab 04/08/25 17:05 Completed Lipase Stat Lab 04/08/25 17:05 Completed PT INR [Prothrombin Time INR] Stat Lab 04/08/25 17:05 Completed Urinalysis and Microscopic Stat Lab 04/08/25 16:50 Completed Medical Decision Narrative: 24-year-old female presents to the emergency department with rectal pain, differential diagnose include but not limited to, constipation, anxiety reaction, panic attack, among others. I discussed this patient's case with the attending physician Will obtain basic laboratory studies, hCG quantitative, lipase level PT/INR and urinalysis Urine is notable for 3+ hematuria, negative leukocyte esterase, negative ketonuria negative nitrites. CBC is unremarkable, hemoglobin hematocrit stable Coags within normal limits CMP is within normal limits UA is notable for 3-5 RBC, 3-5 WBCs, 50-100 squamous epithelial cells, 1+ urine bacteria. hCG is 202 I had a long discussion with the on-call INSTALLATION SERVICE REPRESENTATIVE at approximately 6 PM, she recommends follow-up in the INSTALLATION SERVICE REPRESENTATIVE office tomorrow, she does not believe the patient warrants another transvaginal ultrasound right at this time as beta-hCG was decreasing appropriately with a slight increase, could be new if the patient and her significant other are active, I will determine this at the bedside. Regardless, patient is received 1 dose of IM methotrexate on the Mar 25 2025, with expected beta-hCG decline, with benign abdominal exam and benign vitals. I discussed these results in depth with the patient and family the bedside, patient and family have not been sexually active since 03/16/2025, they have been following strict restrictions and recommendations per INSTALLATION SERVICE REPRESENTATIVE and other medical providers. Patient was given strict ED return precautions. Patient will follow-up in the INSTALLATION SERVICE REPRESENTATIVE clinic tomorrow morning. Patient and family voiced understanding and agreement with the current treatment plan/discharge plan. Upon discharge patient is hemodynamically stable and abdominal exam remains benign. Critical Care Critical Care Time Critical Care Time: No
[2025-04-08 17:02] LABS: Microscopic, Urine URINE MICROSCOPIC (MICROSCOPIC)
[2025-04-08 17:06] LABS: Bilirubin,Urine Negative (Negative); Color,Urine YELLOW (Yellow); Glucose,Urine (UA) Negative (Negative); Ketones,Urine Negative (Negative); Leukocyte Esterase,Urine Negative (Negative); PH,Urine 7.0 (5.0-8.5); Protein,Urine Negative (Negative); Specific Gravity, Urine 1.015 (1.005-1.030); Urobilinogen,Urine 2.0 EU/dl (0.2)
[2025-04-08 17:24] VITALS: BP 124/78
[2025-04-08 17:26] LABS: Squamous Epithelial Cell,Urine 50-100 #/hpf (0-5)
[2025-04-08 17:27] LABS: Hematocrit 39.6 % (37.0-47.0); Hemoglobin 13.1 g/dL (12.2-16.2); Immature Granulocytes % 0.2 %; Mean Corpuscular HGB Conc 33.1 g/dL (31.8-35.4); Mean Corpuscular Hemoglobin 29.1 pg (27.0-31.2); Mean Corpuscular Volume 88.0 fl (81-99); Nucleated Red Blood Cells % 0 %; Platelet Count 499 K/mm3 (142-424); Red Blood Count 4.50 M/mm3 (4.20-5.40); Red Cell Distribution Width-SD 41.7 fL; White Blood Count 9.9 K/mm3 (4.8-10.8)
[2025-04-08 17:27] LABS: Amorphous Sediment,Urine 4+ /lpf; Bacteria,Urine 1+ /lpf
[2025-04-08 17:29] LABS: INR 1.12 (0.9-1.1); Prothrombin Time 12.3 seconds (10.1-12.5)
[2025-04-08 17:30] LABS: Albumin Level 5.4 g/dl (3.5-5.0); Chloride 102 mmol/L (98-107); Potassium 3.6 mmoL/L (3.5-5.1); Sodium 141 mmol/L (136-145)
[2025-04-08 17:33] LABS: Alanine Aminotransferase 16 U/L (12-78); Albumin/Globulin Ratio 2.3 (1.1-1.8); Alkaline Phosphatase 66 U/L (38-126); Anion Gap 13.6 mEq/L (5-15); Aspartate Amino Transferase 26 U/L (14-36); Bilirubin,Total 0.7 mg/dl (0.2-1.3); Calcium 9.1 mg/dl (8.4-10.2); Carbon Dioxide 29 mmol/L (22.0-30.0); Globulin 2.3 g/dL (1.3-3.2); Glucose 107 mg/dl (74-100); Lipase 58 U/L (23-300); Total Protein,Serum 7.7 g/dl (6.3-8.2)
[2025-04-08 17:45] LABS: Blood Urea Nitrogen 14 mg/dl (7-17); Creatinine Clearance Estimated 111 mL/min (50-200); Creatinine,Serum 0.50 mg/dl (0.52-1.04); Estimated Glomerular Filt Rate 154 ml/min (>60); GFR (African American) 187 ML/MIN (>60)
[2025-04-08 18:25] VITALS: BP 118/80; PULSE 98; RESP 16; TEMP 37; O2SAT 98
== END 2025-04-08 18:36 | disposition home or self-care (01) ==
PROVIDERS: Physician Assistant; Emergency Provider Student in an Organized Health Care Education/Training Program; PCP Nurse Practitioner Family
DX: K62.89 Other specified diseases of anus and rectum (principal); Z87.59 Personal history of other complications of pregnancy, childbirth and the puerperium
CPT/HCPCS: 80053; 81001; 83690; 84702; 85025; 85610; 99283

== ENCOUNTER 2025-04-09 15:28 | Outpatient (CLI) | payer OTHER, SELFPAY ==
--- OUTSIDE RECORDS SUMMARY | 2025-03-27 19:35 | XMS_ITS | Encounter Summary ---
Author Organization Healthcare Address [address] [place] [address] Care Team Providers Care Trailer Driver Name Role Phone Sarika Moyer ISAIAH Primary Care Provider + Reason for Visit * Reason Comments Pelvic Pain Encounter Details Date Type Department Care Team (Late st Contact Info) Description 03/27/2025 8:35 PM EDT - 03/28/2025 1:22 AM EDT Emergency [facility] Emergency Department [address] [place] [address] Rose Cortes MD [address] [place] [address] of unknown anatomic location (Primary Dx) Discharge [...] as able. Please increase your water intake. Dewitt use of warm and/or cold compresses. Primary [...] here is available to you via the [employer] Internet portal. Please make sure that you [...] 24 y.o. with PUL being followed at [facility] who presents for RLQ pain. Patient reports that this is her first . She was having her beta hCG trended for pregnancyof unknown location, with the trend showing an inappropriate rise. Per [facility] records reviewed by ED MICHAEL, on 03/25/25 beta hCG was 568, down from 701. At this time patient received a dose of IM methotrexate. Yesterday morning/afternoon, patient reports that she had increased right lower quadrant/pelvic pain with associated nausea. At [facility] yesterday, beta hCG was found to be [...] - Patient with PUL being followed at [facility] - Beta hCG trend shown to be inappropriately rising > 03/17: 258 > 03/19: 276 > 03/20: 370 > 03/21: 342 > 03/24: 701 > 03/25: 568 -- Dose of methotrexate 03/25 -- > 03/27: 543 - Pt with increased RLQ pain 03/27 prompting her to present first to [facility] where beta was noted to have decreased slightly from 03/25. TVUS not directly reviewed, however records indicatea 1.5 cm unknown structure was seen in the R adnexa. - Patient was discharged home from [facility], but due to persistent pain presented to [...] with patient that her beta hCG at [facility] today was encouraging. Explained that often times [...] Dispo: stable for discharge home from a [employer] standpoint. Thank you for including us in the care of this patient. This consult was staffed with Dr. Bowers. Please message on-call [employer] resident via [employer] Secure Chat or page [phone] (M-F 6a-6p) or [phone] (nights/weekends) for questions or concerns regarding this patient's care. Ivon Marmolejo MD PGY3 Obstetrics and Gynecology [1] Past Medical History: Diagnosis Date Other specified health status No pertinent past medical history [2] Past Surgical History: Procedure Laterality Date DENTAL SURGERY N/A Dental surgery from [facility] TONSILLECTOMY N/A Tonsillectomy from [facility] [3] Family History Problem Relation Name Age [...] SOA, and urinary symptoms. Medical records from [facility] reviewed: 03/26/2025 -- HCG trends recorded (03/17 -- 258, 03/19--276. 03/20--370. 03/21--342. 03/24--701. 03/25--568.), documented a 1gm Methotrexate given IM on 03/25/2025. 03/27/2025 -- TVUS with1.5cm unknown structure in the right adenxa, 03/27 -- HCG 543. History provided by: Patient technical services specialist used: No Patient History Past Medical History[1] [...] does not include homicidal or suicidal ideation. [place] Coma Scale Score: 15 ED Course & [...] Abnormality Status --------- ------ ED HIV 1/2 Antibody/Anti...[[id number]] Normal Final result Please view results for [...] 11:57 PM MDM: Patient seen by the [facility] physician and followed-up by myself. In summary: NARRATIVE: Patient is a 24-year-old female who presents with complaints of diffuse right-sided abdominal discomfort. Has been seen multiple times at [facility] and had HCGs done. Has not had an appropriate doubling. Was given a dose of IM methotrexate a couple of days ago. Had an ult rasound done earlier today which did still document a 1.5 cm mass in the right adnexa and hCG in the mid 500s. Patient otherwise had a reassuring exam and H&H and was discharged for outpatient manager gyn follow-up. Was offered some hydroxyzine at that time, but deferred. Patient presented to our ER for 2nd opinion of her own accord. H&H stable. HCG still in the 600range. Transvaginal ultrasound does not note a right adnexal mass at this time. Given unclear hCG trend and patient concern, manager gyn was consulted. Patient signed out pending final manager gyn recommendations. Clinical Impressions as of 03/28/2533 of [...] mg Oral Given Ivana Loredo PA-C EMR Dragon/National Account Representative disclaimer: Much of this encounter note is an electronic self propelled mining machine operator of spoken language to printed text. Electronic self propelled mining machine operator of spoken language may permit erroneous, or [...] as able. Please increase your water intake. Dewitt use of warm and/or cold compresses. Primary [...] here is available to you via the [employer] Internet portal. Please make sure that you are registered for access to this. Disposition Discharge AVS ([employer] Snapshot) - Printed 03/28/2025 Follow-Ups Go to Sarika Moyer APRN; As needed Follow up with [facility] (Obstetrics and Gynecology) - [...] the final edited report. Drafted by Urvashi Restreop MD on 03/27/2025 11:50 PM Final report signed by Lelia Lacy MD on 03/27/2025 11:57 PM us Rose Cortes MD IMG US PROCEDURES Final Result * ED HIV 1/2 Antibody/Antigen Screen w/Reflex to HIV 1/2 Differentiation (03/27/2025 8:31 PM EDT) HIV 1 & 2 Antibody/Antigen Screen Non Reactive Non Reactive 03/27/2025 9:[address] [facility] Comment:Screening for HIV 1 & 2 antibodies, and P24 antigen is NONREACTIVE. No confirmatory testing is required. Blood Venous blood specimen / Unknown Venipuncture / Unknown 03/27/2025 8:31 PM EDT 03/27/2025 8:44 PM EDT Result [facility] us Rose Cortes MD LAB BLOOD ORDERABLES Final Resu lt [facility] [address] [place] [address] * Hepatitis C Antibody - ED (03/27/2025 8:31 PM EDT) Hepatitis C Antibody Negative Negative 03/27/2025 9:[address] [facility] Blood Venous blood specimen / Unknown Venipuncture / Unknown 03/27/2025 8:31 PM EDT 03/27/2025 8:44 PM EDT Result [facility] us Rose Cortes MD LAB BLOOD ORDERABLES Final Resu lt [facility] [address] [place] [address] * Type and screen (03/27/2025 8:31 PM [...] TEST ORDERABLES Final Result Performing Organization Address [facility] de Phone Number BLOOD BANK [address] [place] [address], [place] * (ABNORMAL) hCG, quantitative, (03/27/2025 8:31 PM EDT) hCG, Total Beta 626.2(H) <5 mIU/mL 03/27/2025 9:22 PM EDT [facility] Blood Venous blood specimen / Unknown Venipuncture / Unknown 03/27/2025 8:31 PM EDT 03/27/2025 8:[address] [facility] - 03/27/2025 9:22 PM EDT Patients: [...] ORDERABLES Final Resu lt Performing Organization Address City/[facility]/ZIP Co de Phone Number [facility] [address] [place] [address] * (ABNORMAL) CBC w/diff (03/27/2025 8:31 PM EDT) WBC Count 11.76(H) 3.70 - 10.30 10*3/uL LAB HEMATOLOGY METHOD 03/27/2025 8:[address] [facility] RBC Count 4.82 3.90 - 5.20 10*6/uL LAB HEMATOLOGY METHOD 03/27/2025 8:[address] [facility] HGB 14.2 11.2 - 15.7 g/dL LAB HEMATOLOGY METHOD 03/27/2025 8:[address] [facility] HCT 39.9 34.0 - 45.0 % LAB HEMATOLOGY METHOD 03/27/2025 8:[address] [facility] Platelet Count 523(H) 155 - 369 10*3/uL LAB HEMATOLOGY METHOD 03/27/2025 8:[address] [facility] MCV 83 79 - 98 fL LAB HEMATOLOGY METHOD 03/27/2025 8:[address] [facility] MCH 29.5 26.0 - 32.0 pg LAB HEMATOLOGY METHOD 03/27/2025 8:[address] [facility] MCHC 35.6(H) 30.7 - 35.5 g/dL LAB HEMATOLOGY METHOD 03/27/2025 8:[address] [facility] RDW 12.2 11.5 - 14.5 % LAB HEMATOLOGY METHOD 03/27/2025 8:[address] [facility] MPV 9.3 8.8 - 12.5 fL LAB HEMATOLOGY METHOD 03/27/2025 8:[address] [facility] nRBC 0.0 <=0.0 per 100 WBCs LAB HEMATOLOGY METHOD 03/27/2025 8:[address] [facility] Differential Type Automated LAB HEMATOLOGY METHOD 03/27/2025 8:[address] [facility] Neutrophils % 71 % LAB HEMATOLOGY METHOD 03/27/2025 8:[address] [facility] Lymphocytes % 25 % LAB HEMATOLOGY METHOD 03/27/2025 8:[address] [facility] Monocytes % 4 % LAB HEMATOLOGY METHOD 03/27/2025 8:[address] [facility] Eosinophils % 0 % LAB HEMATOLOGY METHOD 03/27/2025 8:[address] [facility] Basophils % 0 % LAB HEMATOLOGY METHOD 03/27/2025 8:[address] [facility] Immature Granulocytes % 0 % LAB HEMATOLOGY METHOD 03/27/2025 8:[address] [facility] Neutrophils Absolute 8.17(H) 1.60 - 6.10 10*3/uL LAB HEMATOLOGY METHOD 03/27/2025 8:[address] [facility] Lymphocytes Absolute 2.96 1.20 - 3.90 10*3/uL LAB HEMATOLOGY METHOD 03/27/2025 8:[address] [facility] Monocytes Absolute 0.52 0.30 - 0.90 10*3/uL LAB HEMATOLOGY METHOD 03/27/2025 8:[address] [facility] Eosinophils Absolute 0.03 0.00 - 0.50 10*3/uL LAB HEMATOLOGY METHOD 03/27/2025 8:[address] [facility] Basophils Absolute 0.05 0.00 - 0.10 10*3/uL LAB HEMATOLOGY METHOD 03/27/2025 8:[address] [facility] Immature Granulocytes Absolute 0.03 0.00 - 0.06 10*3/uL LAB HEMATOLOGY METHOD 03/27/2025 8:[address] [facility] Blood Venous blood specimen / Unknown Venipuncture / Unknown 03/27/2025 8:31 PM EDT 03/27/2025 8:[address] [facility] - 03/27/2025 8:44 PM EDT Therapeutic decision making should be based on absolute values, rather than percentages. us Rose Cortes MD LAB BLOOD ORDERABLES Final Resu lt [facility] [address] [place] [address] * (ABNORMAL) CMP (03/27/2025 8:31 PM EDT) Glucose, Plasma 96 74 - 99 mg/dL 03/27/2025 9:[address] [facility] BUN, Plasma 11 7 - 21 mg/dL 03/27/2025 9:[address] [facility] Creatinine, Plasma 0.48(L) 0.60 - 1.10 mg/dL 03/27/2025 9:[address] [facility] BUN/Creatinine Ratio 23 03/27/2025 9:[address] [facility] Sodium, Plasma 136 136 - 145 mmol/L 03/27/2025 9:[address] [facility] Potassium, Plasma 3.1(L) 3.6 - 4.9 mmol/L 03/27/2025 9:[address] [facility] Chloride, Plasma 100 97 - 107 mmol/L 03/27/2025 9:[address] [facility] CO2, Plasma 20(L) 22 - 29 mmol/L 03/27/2025 9:[address] [facility] Anion Gap 16 6 - 16 mmol/L 03/27/2025 9:[address] [facility] Total Calcium, Plasma 9.8 8.9 - 10.2 mg/dL 03/27/2025 9:[address] [facility] Total Protein 7.7 6.3 - 7.9 g/dL 03/27/2025 9:[address] [facility] Albumin, Plasma 4.9 3.5 - 5.2 g/dL 03/27/2025 9:[address] [facility] AST, Plasma 17 10 - 35 U/L 03/27/2025 9:[address] [facility] ALT, Plasma 8(L) 10 - 35 U/L 03/27/2025 9:[address] [facility] Alkaline Phosphatase, Plasma 102 35 - 104 U/L 03/27/2025 9:[address] [facility] Total Bilirubin, Plasma 1.3(H) 0.2 - 1.1 mg/dL 03/27/2025 9:[address] [facility] eGFRcr 137.5 mL/min/1.7 3m*2 03/27/2025 9:[address] [facility] Comment:Reported eGFRcr in m L/min/1.73m2 is based the CKD-EPI 2020 equation that does not use a race coefficient. Blood Venous blood specimen / Unknown Venipuncture / Unknown 03/27/2025 8:31 PM EDT 03/27/2025 8:41 PM EDT us Rose Cortes MD LAB BLOOD ORDERABLES Final Resu lt [facility] [address] [place] [address] documented in this encounter Visit Diagnoses Diagnosis [...] Foss) documented in this encounter Care Teams Trailer Driver Relationship Specialty Start Date End Date Sarika Moyer APRN [address] [place] [id number] PCP - General 10/14/20 documented as of this encounter
--- OUTSIDE RECORDS SUMMARY | 2025-04-05 22:43 | XMS_ITS | Encounter Summary ---
Author Organization [employer] ([place], [place], [place], [place], [place]) Address [address] [place] [address] Care Team Providers Care Space And Storage Clerk Name Role Phone Sarika Moyer APRN Primary [...] EST - 04/06/2025 2:31 AM EST Emergency [facility] Emergency Department [address] [place] [phone] Keke Gar MD [address] [place] [address] Ectopic (Primary Dx) Discharge Disposition: Home or [...] be sent through Care Everywhere. * Ectopic Rxon-ea-[id number] (Burkinan) documented in this encounter ED Notes * [...] are negative. Physical Exam ED Triage Vitals [04/05/251] Encounter Vitals Group BP (!) 128/90 Girls [...] Color, UA Yellow Clarity, UA Clear Specific [place], UA 1.025 1.002 - 1.030 pH, UA [...] doctor Call today Next Steps: Follow up ING SCIENCE PROFESSOR documented in this encounter Plan of Treatment [...] recommended. IMPRESSION: Authenticated and Keke Gar MD [facility] US ORDERABLES Edited Result - Final * (ABNORMAL) Comprehensive metabolic panel (04/05/2025 11:30 PM EST) Sodium 140 136 - 145 meq/L 04/06/2025 12:03 AM [facility] Potassium 3.3(L) 3.5 - 5.1 meq/L 04/06/2025 12:03 AM [facility] Chloride 102 98 - 107 meq/L 04/06/2025 12:03 AM [facility] CO2 25 21 - 32 meq/L 04/06/2025 12:03 AM [facility] Calcium 9.5 8.5 - 10.1 mg/dL 04/06/2025 12:03 AM [facility] Glucose 106(H) 74 - 100 mg/dL 04/06/2025 12:03 AM [facility] BUN 12 7 - 18 mg/dL 04/06/2025 12:03 AM [facility] Creatinine 0.60 0.55 - 1.10 mg/dL 04/06/2025 12:03 AM [facility] BUN/Creatinine 20 04/06/2025 12:03 AM [facility] Albumin 4.5 3.4 - 5.0 g/dL 04/06/2025 12:03 AM [facility] Alkaline Phosphatase 91 46 - 116 U/L 04/06/2025 12:03 AM [facility] ALT 10(L) 12 - 78 U/L 04/06/2025 12:03 AM [facility] AST 14(L) 15 - 37 U/L 04/06/2025 12:03 AM [facility] Total Bilirubin 0.3 0.2 - 1.0 mg/dL 04/06/2025 12:03 AM [facility] Protein, Total 8.0 6.4 - 8.2 gm/dL 04/06/2025 12:03 AM [facility] Anion Gap 16 11 - 22 04/06/2025 12:03 AM [facility] A/G Ratio 1.3 04/06/2025 12:03 AM [facility] Globulin 3.5 g/dL 04/06/2025 12:03 AM [facility] Osmolality Calc 279.6 mOsm/kg 12:03 AM [facility] eGFR (mL/min/1.73m2) >60 >=60 mL/min/1.7 3m2 04/06/2025 12:03 AM [facility] Comment:ESTIMATED GFR IS NOT ACCURATE CREATININE CLEARANCE IN PREDICTING GLOMERULAR FILTRATION RATE. ESTIMATED GFR IS NOT APPLICABLE FOR DIALYSIS PATIENTS. Blood Venipuncture / Unknown 04/05/2025 11:30 PM EST 04/05/2025 11:41 PM EST us Keke Gar MD LAB BLOOD ORDERABLES Lainey mckay Result [facility] [address] [id number] [phone] * (ABNORMAL) CBC with Auto Diff (04/05/2025 11:30 PM EST) WBC 9.8 4.8 - 10.8 K/ L 04/05/2025 11:45 PM [facility] RBC 4.72 3.50 - 5.20 M/ L 04/05/2025 11:45 PM [facility] Hemoglobin 13.8 11.7 - 15.8 GM/DL 04/05/2025 11:45 PM [facility] Hematocrit 40.9 35.0 - 47.0 % 04/05/2025 11:45 PM [facility] MCV 87 81 - 101 fL 04/05/2025 11:45 PM [facility] MCH 29.2 27.0 - 34.0 pg 04/05/2025 11:45 PM [facility] MCHC 33.7 32.0 - 36.0 GM/DL 04/05/2025 11:45 PM [facility] RDW 13.1 11.5 - 14.5 % 04/05/2025 11:45 PM [facility] Platelets 511(H) 150 - 400 K/CU MM 04/05/2025 11:45 PM [facility] MPV 9.2(L) 9.4 - 12.4 fL 04/05/2025 11:45 PM [facility] Nucleated Red Blood Cell 0.0 0 - 0.2 % 04/05/2025 11:45 PM [facility] % Neutros 65 37 - 80 % 04/05/2025 11:45 PM [facility] % Lymphs 27 10 - 50 % 04/05/2025 11:45 PM [facility] % Monos 6 5 - 13 % 04/05/2025 11:45 PM [facility] % Eos 0.8 0.0 - 7.0 % 04/05/2025 11:45 PM [facility] % Baso 1 0 - 3 % 04/05/2025 11:45 PM [facility] NRBC Absolute <0.01 0 - 0.012 K/ul 04/05/2025 11:45 PM [facility] # Neutros 6.35 2.00 - 6.90 K/ L 04/05/2025 11:45 PM EST [facility] # Lymphs 2.68 0.60 - 3.40 K/ L 04/05/2025 11:45 PM EST [facility] # Monos 0.62 0.00 - 0.90 K/ L 04/05/2025 11:45 PM EST [facility] # Eos 0.08 0.00 - 0.70 K/ L 04/05/2025 11:45 PM EST [facility] # Baso 0.05 0.00 - 0.20 K/ L 04/05/2025 11:45 PM EST [facility] % Imm Grans 0.20 % 04/05/2025 11:45 PM EST [facility] # IG 0.02(H) 0.00 - 0.00 K/uL 04/05/2025 11:45 PM EST [facility] Blood Venipuncture / Unknown 04/05/2025 11:30 PM EST 04/05/2025 11:41 PM EST Narrative [facility] - 04/05/2025 11:45 PM EST [...] MD LAB BLOOD ORDERABLES Lainey l Result [facility] [address] [place], [place] [id number], [facility] [phone] * (ABNORMAL) Urinalysis w/Microscopic (04/05/2025 11:04 PM EST) Color, UA Yellow 04/05/2025 11:43 PM EST [facility] Clarity, UA Clear 04/05/2025 11:43 PM [facility] Specific [place], UA 1.025 1.002 - 1.030 04/05/2025 11:43 PM [facility] pH, UA 6.0 5.0 - 9.0 04/05/2025 11:43 PM [facility] Leukocytes, UA Negative Negative 04/05/2025 11:43 PM [facility] Nitrite, UA Negative Negative 04/05/2025 11:43 PM [facility] Protein, UA 1+(A) Negative 04/05/2025 11:43 PM [facility] Glucose, UA Negative Negative 04/05/2025 11:43 PM [facility] Ketones, UA Trace(A) Negative 04/05/2025 11:43 PM [facility] Urobilinogen, UA 0.2 mg/dL Normal 04/05/2025 11:43 PM [facility] Bilirubin, UA Negative Negative 04/05/2025 11:43 PM [facility] Blood, UA 3+(A) Negative 04/05/2025 11:43 PM [facility] RBC, UA 5-10(A) None Seen, Rare /HPF 04/05/2025 11:43 PM [facility] WBC, UA 0-5 None Seen, Occasional , 0-5 /HPF 04/05/2025 11:43 PM [facility] Bacteria, UA 2+(A) None Seen 04/05/2025 11:43 PM [facility] Mucus 1+(A) Trace 04/05/2025 11:43 PM [facility] SQUAMOUS EPITHELIAL 0-5(A) None Seen, Rare /HPF 04/05/2025 11:43 PM [facility] Ca Oxalate [place], UA 2+(A) (none) 04/05/2025 11:43 PM [facility] Specimen Source Urine, Clean Catch 04/05/2025 11:43 PM [facility] Urine URINE SPECIMEN COLLECTION, CLEAN CATCH / Unknown 04/05/2025 11:04 PM EST 04/05/2025 11:04 PM EST us Keke Gar MD URINE ORDERABLES Final Re sult [facility] [address] [id number], [facility] [phone] documented in this encounter Visit Diagnoses Diagnosis Ectopic - Primary Unspecified ectopic without intrauterine documented in this encounter Care Teams Space And Storage Clerk Relationship Specialty Start Date End Date Sarika Moyer, IT ASSISTANT [address] [place] [address] PCP - General Nurse Practitioner 04/05/25 documented as of this encounter
[2025-04-09 15:30] VITALS: BP 125/79; PULSE 79; RESP 18; TEMP 36.7; O2SAT 100
--- OUTSIDE RECORDS SUMMARY | 2025-04-09 15:30 | XMS_ITS | Clinical Summary ---
Author Organization Healthcare Address [address] [id number] Care Team Providers Care Home Appliances Mechanic Name Role Phone Sarika Moyer ORTHOPEDICALLY IMPAIRED TEACHER Primary Care Provider + Allergies Active Allergy Reactions Criticality Noted Date Comments Escitalopram Anaphylaxis High 03/27/2025 Robitussin Dm Max Day-Night Anxiety Low 03/27/20 Medications No known medications Active Problems Comments Yes No known active problems Encounters Date Type Department Care Team Description 03/27/2025 8:35 PM EDT - 03/28/2025 1:22 AM EDT Emergency [facility] Emergency Department [address] [place] [address] Rose Cortes MD of unknown anatomic location (Primary Dx) Discharge Disposition: Home or Self Care 03/27/2025 Travel 03/17/2025 Telephone Obstetrics & Gynecology [address] [place] [phone] Chiki Cardenas MD from Last 3 [...] 10/19/2024 10/19/2014, 05/21/2006, 08/26/2003, Additional history exists [id number] Vaccine (1 - season) 2025 UKY-Influenza Vaccine [...] Reactive Non Reactive 03/27/2025 9:26 PM EDT [facility] Comment:Screening for HIV 1 & 2 antibodies, and P24 antigen is NONREACTIVE. No confirmatory testing is required. Blood Venous blood specimen / Unknown Venipuncture / Unknown 03/27/2025 8:31 PM EDT 03/27/2025 8:44 PM EDT Rose Cortes MD LAB BLOOD ORDERABLES Final Resu lt [facility] [address] [place] [address] * Hepatitis C Antibody - ED (03/27/2025 8:31 PM EDT) Hepatitis C Antibody Negative Negative 03/27/2025 9:26 PM EDT [facility] Blood Venous blood specimen / Unknown Venipuncture / Unknown 03/27/2025 8:31 PM EDT 03/27/2025 8:44 PM EDT us Rose Cortes MD LAB BLOOD ORDERABLES Final Resu lt [facility] [address] [place] [address] * (ABNORMAL) CBC w/diff (03/27/2025 8:31 PM EDT) Pathologist [facility] WBC Count 11.76(H) 3.70 - 10.30 10*3/uL LAB HEMATOLOGY METHOD 03/27/2025 8:44 PM EDT [facility] RBC Count 4.82 3.90 - 5.20 10*6/uL LAB HEMATOLOGY METHOD 03/27/2025 8:44 PM EDT [facility] HGB 14.2 11.2 - 15.7 g/dL LAB HEMATOLOGY METHOD 03/27/2025 8:44 PM EDT [facility] HCT 39.9 34.0 - 45.0 % LAB HEMATOLOGY METHOD 03/27/2025 8:44 PM EDT [facility] Platelet Count 523(H) 155 - 369 10*3/uL LAB HEMATOLOGY METHOD 03/27/2025 8:44 PM EDT [facility] MCV 83 79 - 98 fL LAB HEMATOLOGY METHOD 03/27/2025 8:44 PM EDT [facility] MCH 29.5 26.0 - 32.0 pg LAB HEMATOLOGY METHOD 03/27/2025 8:44 PM EDT [facility] MCHC 35.6(H) 30.7 - 35.5 g/dL LAB HEMATOLOGY METHOD 03/27/2025 8:44 PM EDT [facility] RDW 12.2 11.5 - 14.5 % LAB HEMATOLOGY METHOD 03/27/2025 8:44 PM EDT [facility] MPV 9.3 8.8 - 12.5 fL LAB HEMATOLOGY METHOD 03/27/2025 8:44 PM EDT [facility] nRBC 0.0 <=0.0 per 100 WBCs LAB HEMATOLOGY METHOD 03/27/2025 8:44 PM EDT [facility] Differential Type Automated LAB HEMATOLOGY METHOD 03/27/2025 8:44 PM EDT [facility] Neutrophils % 71 % LAB HEMATOLOGY METHOD 03/27/2025 8:44 PM EDT [facility] Lymphocytes % 25 % LAB HEMATOLOGY METHOD 03/27/2025 8:44 PM EDT [facility] Monocytes % 4 % LAB HEMATOLOGY METHOD 03/27/2025 8:44 PM EDT [facility] Eosinophils % 0 % LAB HEMATOLOGY METHOD 03/27/2025 8:44 PM EDT [facility] Basophils % 0 % LAB HEMATOLOGY METHOD 03/27/2025 8:44 PM EDT [facility] Immature Granulocytes % 0 % LAB HEMATOLOGY METHOD 03/27/2025 8:44 PM EDT [facility] Neutrophils Absolute 8.17(H) 1.60 - 6.10 10*3/uL LAB HEMATOLOGY METHOD 03/27/2025 8:44 PM EDT [facility] Lymphocytes Absolute 2.96 1.20 - 3.90 10*3/uL LAB HEMATOLOGY METHOD 03/27/2025 8:44 PM EDT [facility] Monocytes Absolute 0.52 0.30 - 0.90 10*3/uL LAB HEMATOLOGY METHOD 03/27/2025 8:44 PM EDT [facility] Eosinophils Absolute 0.03 0.00 - 0.50 10*3/uL LAB HEMATOLOGY METHOD 03/27/2025 8:44 PM EDT [facility] Basophils Absolute 0.05 0.00 - 0.10 10*3/uL LAB HEMATOLOGY METHOD 03/27/2025 8:44 PM EDT [facility] Immature Granulocytes Absolute 0.03 0.00 - 0.06 10*3/uL LAB HEMATOLOGY METHOD 03/27/2025 8:44 PM EDT [facility] Blood Venous blood specimen / Unknown Venipuncture / Unknown 03/27/2025 8:31 PM EDT 03/27/2025 8:41 PM EDT Narrative [facility] - 03/27/2025 8:44 PM EDT Therapeutic decision making should be based on absolute values, rather than percentages. Rose Cortes MD LAB BLOOD ORDERABLES Final Resu lt Performing Organization Address City/[facility]/ZIP Co de Phone Number [facility] [address] [place] [address] * Type and screen (03/27/2025 8:31 PM [...] TEST ORDERABLES Final Result Performing Organization Address [facility] de Phone Number BLOOD BANK [address] [place] [address] * (ABNORMAL) hCG, quantitative, (03/27/2025 8:31 PM EDT) hCG, Total Beta 626.2(H) <5 mIU/mL 03/27/2025 9:22 PM EDT [facility] Blood Venous blood specimen / Unknown Venipuncture / Unknown 03/27/2025 8:31 PM EDT 03/27/2025 8:41 PM EDT Narrative [facility] - 03/27/2025 9:22 PM EDT [...] MD LAB BLOOD ORDERABLES Final Resu lt [facility] [address] [place] [address] * (ABNORMAL) CMP (03/27/2025 8:31 PM EDT) Glucose, Plasma 96 74 - 99 mg/dL 03/27/2025 9:22 PM EDT [facility] BUN, Plasma 11 7 - 21 mg/dL 03/27/2025 9:22 PM EDT [facility] Creatinine, Plasma 0.48(L) 0.60 - 1.10 mg/dL 03/27/2025 9:22 PM EDT [facility] BUN/Creatinine Ratio 23 03/27/2025 9:22 PM EDT [facility] Sodium, Plasma 136 136 - 145 mmol/L 03/27/2025 9:22 PM EDT [facility] Potassium, Plasma 3.1(L) 3.6 - 4.9 mmol/L 03/27/2025 9:22 PM EDT [facility] Chloride, Plasma 100 97 - 107 mmol/L 03/27/2025 9:22 PM EDT [facility] CO2, Plasma 20(L) 22 - 29 mmol/L 03/27/2025 9:22 PM EDT [facility] Anion Gap 16 6 - 16 mmol/L 03/27/2025 9:22 PM EDT [facility] Total Calcium, Plasma 9.8 8.9 - 10.2 mg/dL 03/27/2025 9:22 PM EDT [facility] Total Protein 7.7 6.3 - 7.9 g/dL 03/27/2025 9:22 PM EDT [facility] Albumin, Plasma 4.9 3.5 - 5.2 g/dL 03/27/2025 9:22 PM EDT [facility] AST, Plasma 17 10 - 35 U/L 03/27/2025 9:22 PM EDT [facility] ALT, Plasma 8(L) 10 - 35 U/L 03/27/2025 9:22 PM EDT [facility] Alkaline Phosphatase, Plasma 102 35 - 104 U/L 03/27/2025 9:22 PM EDT [facility] Total Bilirubin, Plasma 1.3(H) 0.2 - 1.1 mg/dL 03/27/2025 9:22 PM EDT [facility] eGFRcr 137.5 mL/min/1.7 3m*2 03/27/2025 9:22 PM EDT [facility] Comment:Reported eGFRcr in m L/min/1.73m2 is based the CKD-EPI 2020 equation that does not use a race coefficient. Blood Venous blood specimen / Unknown Venipuncture / Unknown 03/27/2025 8:31 PM EDT 03/27/2025 8:41 PM EDT us Rose Cortes MD LAB BLOOD ORDERABLES Final Resu lt [facility] [address] [place] [address] from Last 3 Months Insurance [facility] MEDICAID Care Teams Home Appliances Mechanic Relationship Specialty Start Date End Date Sarika Moyer APRN [address] [place] [id number] PCP - General 10/14/20
--- OUTSIDE RECORDS SUMMARY | 2025-04-09 15:30 | XMS_ITS | Referral Summary ---
Author Organization [employer] ([place], [place], [place], [place], [place]) Address [address] [place] [address] Care Team Providers Care Registration Specialist Name Role Phone Sarika Moyer Dorian COLON Primary Care Provider + Encounters Date Type Department Care Team Description 04/05/2025 10:43 PM EST - 04/06/2025 2:31 AM EST Emergency [facility] Emergency Department [address] [place] [address] Keke Gar MD Ectopic (Primary [...] IMPRESSION: Authenticated and us Keke Gar MD [facility] US ORDERABLES Edited Result - Final * (ABNORMAL) CBC with Auto Diff (04/05/2025 11:30 PM EST) WBC 9.8 4.8 - 10.8 K/ L 04/05/2025 11:45 PM [facility] RBC 4.72 3.50 - 5.20 M/ L 04/05/2025 11:45 PM [facility] Hemoglobin 13.8 11.7 - 15.8 GM/DL 04/05/2025 11:45 PM [facility] Hematocrit 40.9 35.0 - 47.0 % 04/05/2025 11:45 PM [facility] MCV 87 81 - 101 fL 04/05/2025 11:45 PM [facility] MCH 29.2 27.0 - 34.0 pg 04/05/2025 11:45 PM [facility] MCHC 33.7 32.0 - 36.0 GM/DL 04/05/2025 11:45 PM [facility] RDW 13.1 11.5 - 14.5 % 04/05/2025 11:45 PM [facility] Platelets 511(H) 150 - 400 K/CU MM 04/05/2025 11:45 PM [facility] MPV 9.2(L) 9.4 - 12.4 fL 04/05/2025 11:45 PM [facility] Nucleated Red Blood Cell 0.0 0 - 0.2 % 04/05/2025 11:45 PM [facility] % Neutros 65 37 - 80 % 04/05/2025 11:45 PM [facility] % Lymphs 27 10 - 50 % 04/05/2025 11:45 PM [facility] % Monos 6 5 - 13 % 04/05/2025 11:45 PM [facility] % Eos 0.8 0.0 - 7.0 % 04/05/2025 11:45 PM [facility] % Baso 1 0 - 3 % 04/05/2025 11:45 PM [facility] NRBC Absolute <0.01 0 - 0.012 K/ul 04/05/2025 11:45 PM EST [facility] # Neutros 6.35 2.00 - 6.90 K/ L 04/05/2025 11:45 PM EST [facility] # Lymphs 2.68 0.60 - 3.40 K/ L 04/05/2025 11:45 PM EST [facility] # Monos 0.62 0.00 - 0.90 K/ L 04/05/2025 11:45 PM EST [facility] # Eos 0.08 0.00 - 0.70 K/ L 04/05/2025 11:45 PM EST [facility] # Baso 0.05 0.00 - 0.20 K/ L 04/05/2025 11:45 PM EST [facility] % Imm Grans 0.20 % 04/05/2025 11:45 PM EST [facility] # IG 0.02(H) 0.00 - 0.00 K/uL 04/05/2025 11:45 PM EST [facility] Blood Venipuncture / Unknown 04/05/2025 11:30 PM EST 04/05/2025 11:41 PM EST Narrative [facility] - 04/05/2025 11:45 PM EST When [...] MD LAB BLOOD ORDERABLES Lainey mckay Result [facility] [address], [place] [address] [phone] * (ABNORMAL) Comprehensive metabolic panel (04/05/2025 11:30 PM EST) Pathologist [facility] Sodium 140 136 - 145 meq/L 04/06/2025 12:03 AM [facility] Potassium 3.3(L) 3.5 - 5.1 meq/L 04/06/2025 12:03 AM [facility] Chloride 102 98 - 107 meq/L 04/06/2025 12:03 AM [facility] CO2 25 21 - 32 meq/L 04/06/2025 12:03 AM [facility] Calcium 9.5 8.5 - 10.1 mg/dL 04/06/2025 12:03 AM [facility] Glucose 106(H) 74 - 100 mg/dL 04/06/2025 12:03 AM [facility] BUN 12 7 - 18 mg/dL 04/06/2025 12:03 AM [facility] Creatinine 0.60 0.55 - 1.10 mg/dL 04/06/2025 12:03 AM [facility] BUN/Creatinine 20 04/06/2025 12:03 AM [facility] Albumin 4.5 3.4 - 5.0 g/dL 04/06/2025 12:03 AM [facility] Alkaline Phosphatase 91 46 - 116 U/L 04/06/2025 12:03 AM [facility] ALT 10(L) 12 - 78 U/L 04/06/2025 12:03 AM [facility] AST 14(L) 15 - 37 U/L 04/06/2025 12:03 AM [facility] Total Bilirubin 0.3 0.2 - 1.0 mg/dL 04/06/2025 12:03 AM [facility] Protein, Total 8.0 6.4 - 8.2 gm/dL 04/06/2025 12:03 AM [facility] Anion Gap 16 11 - 04/06/2025 12:03 AM [facility] A/G Ratio 1.3 04/06/2025 12:03 AM [facility] Globulin 3.5 g/dL 04/06/2025 12:03 AM [facility] Osmolality Calc 279.6 mOsm/kg 12:03 AM EST [facility] eGFR (mL/min/1.73m2) >60 >=60 mL/min/1.7 3m2 04/06/2025 12:03 AM EST [facility] Comment:ESTIMATED GFR IS NOT ACCURATE CREATININE CLEARANCE IN PREDICTING GLOMERULAR FILTRATION RATE. ESTIMATED GFR IS NOT APPLICABLE FOR DIALYSIS PATIENTS. Blood Venipuncture / Unknown 04/05/2025 11:30 PM EST 04/05/2025 11:41 PM EST us Keke Gar MD LAB BLOOD ORDERABLES Lainey mckay Result [facility] [address] [place], [place] [id number], [facility] [phone] * (ABNORMAL) Urinalysis w/Microscopic (04/05/2025 11:04 PM EST) Color, UA Yellow 04/05/2025 11:43 PM [facility] Clarity, UA Clear 04/05/2025 11:43 PM [facility] Specific [place], UA 1.025 1.002 - 1.030 04/05/2025 11:43 PM [facility] pH, UA 6.0 5.0 - 9.0 04/05/2025 11:43 PM [facility] Leukocytes, UA Negative Negative 04/05/2025 11:43 PM [facility] Nitrite, UA Negative Negative 04/05/2025 11:43 PM [facility] Protein, UA 1+(A) Negative 04/05/2025 11:43 PM [facility] Glucose, UA Negative Negative 04/05/2025 11:43 PM [facility] Ketones, UA Trace(A) Negative 04/05/2025 11:43 PM [facility] Urobilinogen, UA 0.2 mg/dL Normal 04/05/2025 11:43 PM [facility] Bilirubin, UA Negative Negative 04/05/2025 11:43 PM EST [facility] Blood, UA 3+(A) Negative 04/05/2025 11:43 PM EST [facility] RBC, UA 5-10(A) None Seen, Rare /HPF 04/05/2025 11:43 PM EST [facility] WBC, UA 0-5 None Seen, Occasional , 0-5 /HPF 04/05/2025 11:43 PM EST [facility] Bacteria, UA 2+(A) None Seen 04/05/2025 11:43 PM EST [facility] Mucus 1+(A) Trace 04/05/2025 11:43 PM EST [facility] SQUAMOUS EPITHELIAL 0-5(A) None Seen, Rare /HPF 04/05/2025 11:43 PM EST [facility] Ca Oxalate [place], UA 2+(A) (none) 04/05/2025 11:43 PM EST [facility] Specimen Source Urine, Clean Catch 04/05/2025 11:43 PM EST [facility] Urine URINE SPECIMEN COLLECTION, CLEAN CATCH / Unknown 04/05/2025 11:04 PM EST 04/05/2025 11:04 PM EST us Keke Gar MD URINE ORDERABLES Final Re sult [facility] [address] [phone] from Last 3 Months Insurance [facility] Care Teams Registration Specialist Relationship Specialty Start Date End Date Sarika Moyer, GRAIN COMBINER [address] [place] [address] PCP - General Nurse Practitioner 04/05/25
--- OUTSIDE RECORDS SUMMARY | 2025-04-09 15:30 | XMS_ITS | Encounter Summary ---
Author Organization Healthcare Address [address] [id number] Care Team Providers Care Director Digital Strategy Name Role Phone Sarika Moyer PL SQL DEVELOPER Primary Care Provider + Encounter Details [...] filedocumented in this encounter Care Teams Director Digital Strategy Relationship Specialty Start Date End Date Sarika Moyer, PL SQL DEVELOPER [address] [place] [address] PCP - General 10/14/20 documented as of this encounter
--- OUTSIDE RECORDS SUMMARY | 2025-04-09 15:30 | XMS_ITS | Encounter Summary ---
Author Organization [employer] ([place], [place], [place], [place], [place]) Address [address] [place] [address] Care Team Providers Care Golf Course Equipment Operator Name Role Phone Sarika Moyer GLOST KILN PLACER Primary Care Provider + Encounter Details Date [...] on filedocumented in this encounter Care Teams Golf Course Equipment Operator Relationship Specialty Start Date End Date Sarika Moyer APRN [address] [place] [address] PCP - General Nurse Practitioner 04/05/25 documented as of this encounter
--- OUTSIDE RECORDS SUMMARY | 2025-04-09 15:31 | XMS_ITS | Encounter Summary ---
Author Organization Healthcare Address [address] [place] [address] Care Team Providers Care Second Hand Paper Machine Name Role Phone Sarika Moyer CNC LATHE MACHINE OPERATOR Primary Care Provider + Encounter Details Date Type Department Care Team ([facility] st Contact Info) Description 03/17/2025 Telephone Obstetrics & Gynecology [address] [place] [address] Chiki Cardenas MD [address] [place] [address] Social History Tobacco Use Types [...] on filedocumented in this encounter Care Teams Second Hand Paper Machine Relationship Specialty Start Date End Date Sarika Moyer APRN [address] [place] [id number] PCP - General 10/14/20 documented as of this encounter
--- OUTSIDE RECORDS SUMMARY | 2025-04-09 15:31 | XMS_ITS | Clinical Summary ---
Author Organization [employer] ([place], [place], [place], [place], [place]) Address [address] [place] [address] Care Team Providers Care Watch Crystal Cutter Name Role Phone Sarika Moyer Dorian COLON Primary Care Provider + Allergies Active Allergy Reactions Criticality Noted Date Comments Escitalopram 04/05/2025 Acetaminophen-Dm 04/05/2025 Medications No known medications Encounters Date Type Department Care Team Description 04/05/2025 10:43 PM EST - 04/06/2025 2:31 AM EST Emergency [facility] Emergency Department [address] [place] [phone] Keke Gar MD Ectopic (Primary Dx) [...] IMPRESSION: Authenticated and us Keke Gar MD [facility] [place] ORDERABLES Edited Result - Final * (ABNORMAL) CBC with Auto Diff (04/05/2025 11:30 PM EST) WBC 9.8 4.8 - 10.8 K/ L 04/05/2025 11:45 PM [facility] RBC 4.72 3.50 - 5.20 M/ L 04/05/2025 11:45 PM [facility] Hemoglobin 13.8 11.7 - 15.8 GM/DL 04/05/2025 11:45 PM [facility] Hematocrit 40.9 35.0 - 47.0 % 04/05/2025 11:45 PM [facility] MCV 87 81 - 101 fL 04/05/2025 11:45 PM [facility] MCH 29.2 27.0 - 34.0 pg 04/05/2025 11:45 PM [facility] MCHC 33.7 32.0 - 36.0 GM/DL 04/05/2025 11:45 PM [facility] RDW 13.1 11.5 - 14.5 % 04/05/2025 11:45 PM [facility] Platelets 511(H) 150 - 400 K/CU MM 04/05/2025 11:45 PM [facility] MPV 9.2(L) 9.4 - 12.4 fL 04/05/2025 11:45 PM EST [facility] Nucleated Red Blood Cell 0.0 0 - 0.2 % 04/05/2025 11:45 PM EST [facility] % Neutros 65 37 - 80 % 04/05/2025 11:45 PM [facility] % Lymphs 27 10 - 50 % 04/05/2025 11:45 PM EST [facility] % Monos 6 5 - 13 % 04/05/2025 11:45 PM EST [facility] % Eos 0.8 0.0 - 7.0 % 04/05/2025 11:45 PM [facility] % Baso 1 0 - 3 % 04/05/2025 11:45 PM [facility] NRBC Absolute <0.01 0 - 0.012 K/ul 04/05/2025 11:45 PM [facility] # Neutros 6.35 2.00 - 6.90 K/ L 04/05/2025 11:45 PM EST [facility] # Lymphs 2.68 0.60 - 3.40 K/ L 04/05/2025 11:45 PM [facility] # Monos 0.62 0.00 - 0.90 K/ L 04/05/2025 11:45 PM [facility] # Eos 0.08 0.00 - 0.70 K/ L 04/05/2025 11:45 PM EST [facility] # Baso 0.05 0.00 - 0.20 K/ L 04/05/2025 11:45 PM EST [facility] % Imm Grans 0.20 % 04/05/2025 11:45 PM [facility] # IG 0.02(H) 0.00 - 0.00 K/uL 04/05/2025 11:45 PM [facility] Blood Venipuncture / Unknown 04/05/2025 11:30 PM EST 04/05/2025 11:41 PM EST [facility] - 04/05/2025 11:45 PM EST [...] MD LAB BLOOD ORDERABLES Lainey nely Result [facility] [address] [phone] * (ABNORMAL) Comprehensive metabolic panel (04/05/2025 11:30 PM EST) Sodium 140 136 - 145 meq/L 04/06/2025 12:03 AM [facility] Potassium 3.3(L) 3.5 - 5.1 meq/L 04/06/2025 12:03 AM [facility] Chloride 102 98 - 107 meq/L 04/06/2025 12:03 AM [facility] CO2 25 21 - 32 meq/L 04/06/2025 12:03 AM [facility] Calcium 9.5 8.5 - 10.1 mg/dL 04/06/2025 12:03 AM [facility] Glucose 106(H) 74 - 100 mg/dL 04/06/2025 12:03 AM [facility] BUN 12 7 - 18 mg/dL 04/06/2025 12:03 AM [facility] Creatinine 0.60 0.55 - 1.10 mg/dL 04/06/2025 12:03 AM [facility] BUN/Creatinine 20 04/06/2025 12:03 AM [facility] Albumin 4.5 3.4 - 5.0 g/dL 04/06/2025 12:03 AM [facility] Alkaline Phosphatase 91 46 - 116 U/L 04/06/2025 12:03 AM [facility] ALT 10(L) 12 - 78 U/L 04/06/2025 12:03 AM [facility] AST 14(L) 15 - 37 U/L 04/06/2025 12:03 AM [facility] Total Bilirubin 0.3 0.2 - 1.0 mg/dL 04/06/2025 12:03 AM [facility] Protein, Total 8.0 6.4 - 8.2 gm/dL 04/06/2025 12:03 AM [facility] Anion Gap 16 11 - 22 04/06/2025 12:03 AM [facility] A/G Ratio 1.3 04/06/2025 12:03 AM [facility] Globulin 3.5 g/dL 04/06/2025 12:03 AM [facility] Osmolality Calc 279.6 mOsm/kg 12:03 AM [facility] eGFR (mL/min/1.73m2) >60 >=60 mL/min/1.7 3m2 04/06/2025 12:03 AM [facility] Comment:ESTIMATED GFR IS NOT ACCURATE CREATININE CLEARANCE IN PREDICTING GLOMERULAR FILTRATION RATE. ESTIMATED GFR IS NOT APPLICABLE FOR DIALYSIS PATIENTS. Blood Venipuncture / Unknown 04/05/2025 11:30 PM EST 04/05/2025 11:41 PM EST us Keke Gar MD LAB BLOOD ORDERABLES Lainey l Result [facility] [address] [place] [address] * (ABNORMAL) Urinalysis w/Microscopic (04/05/2025 11:04 PM EST) Color, UA Yellow 04/05/2025 11:43 PM [facility] Clarity, UA Clear 04/05/2025 11:43 PM [facility] Specific [place], UA 1.025 1.002 - 1.030 04/05/2025 11:43 PM [facility] pH, UA 6.0 5.0 - 9.0 04/05/2025 11:43 PM [facility] Leukocytes, UA Negative Negative 04/05/2025 11:43 PM [facility] Nitrite, UA Negative Negative 04/05/2025 11:43 PM [facility] Protein, UA 1+(A) Negative 04/05/2025 11:43 PM [facility] Glucose, UA Negative Negative 04/05/2025 11:43 PM [facility] Ketones, UA Trace(A) Negative 04/05/2025 11:43 PM [facility] Urobilinogen, UA 0.2 mg/dL Normal 04/05/2025 11:43 PM [facility] Bilirubin, UA Negative Negative 04/05/2025 11:43 PM [facility] Blood, UA 3+(A) Negative 04/05/2025 11:43 PM [facility] RBC, UA 5-10(A) None Seen, Rare /HPF 04/05/2025 11:43 PM [facility] WBC, UA 0-5 None Seen, Occasional , 0-5 /HPF 04/05/2025 11:43 PM [facility] Bacteria, UA 2+(A) None Seen 04/05/2025 11:43 PM [facility] Mucus 1+(A) Trace 04/05/2025 11:43 PM [facility] SQUAMOUS EPITHELIAL 0-5(A) None Seen, Rare /HPF 04/05/2025 11:43 PM [facility] Ca Oxalate [place], UA 2+(A) (none) 04/05/2025 11:43 PM [facility] Specimen Source Urine, Clean Catch 04/05/2025 11:43 PM [facility] Urine URINE SPECIMEN COLLECTION, CLEAN CATCH / Unknown 04/05/2025 11:04 PM EST 04/05/2025 11:04 PM EST us Keke Gar MD URINE ORDERABLES Final Re sult [facility] [address] [place] [address], [facility] [phone] from Last 3 Months Insurance [facility] Care Teams Watch Crystal Cutter Relationship Specialty Start Date End Date Sarika Moyer, VARITYPIST [address] [place] [address] PCP - General Nurse Practitioner 04/05/25
[2025-04-09] MEDS: METHOTREXATE SODIUM 50 MG/2 ML 70 MG IM (15:34)
== END 2025-04-09 23:59 | disposition home or self-care (01) ==
LOC: INF 15:29
PROVIDERS: PCP Nurse Practitioner Family; Visit Provider Obstetrics & Gynecology
DX: O00.90 Unspecified ectopic pregnancy without intrauterine pregnancy (principal)
CPT/HCPCS: 96372; J9260

== ENCOUNTER 2025-04-11 09:38 | Emergency (ER) | payer OTHER, SELFPAY ==
--- OUTSIDE RECORDS SUMMARY | 2025-03-27 19:35 | XMS_ITS | Encounter Summary ---
Author Organization Healthcare Address [address] [place] [address] Care Team Providers Care Master Craftsman Name Role Phone Sarika Moyer ISAIAH Primary Care Provider + Reason for Visit * Reason Comments Pelvic Pain Encounter Details Date Type Department Care Team (Late st Contact Info) Description 03/27/2025 8:35 PM EDT - 03/28/2025 1:22 AM EDT Emergency [facility] Emergency Department [address] [place] [address] Rose Cortes MD [address] [place] [address] of unknown anatomic location (Primary Dx) Discharge [...] as able. Please increase your water intake. [place] use of warm and/or cold compresses. Primary [...] here is available to you via the [employer] Internet portal. Please make sure that [...] 24 y.o. with PUL being followed at [facility] who presents for RLQ pain. Patient reports that this is her first . She was having her beta hCG trended for pregnancyof unknown location, with the trend showing an inappropriate rise. Per [facility] records reviewed by ED MICHAEL, on 03/25/25 beta hCG was 568, down from 701. At this time patient received a dose of IM methotrexate. Yesterday morning/afternoon, patient reports that she had increased right lower quadrant/pelvic pain with associated nausea. At [facility] yesterday, beta hCG was found [...] - Patient with PUL being followed at [facility] - Beta hCG trend shown to be inappropriately rising > 03/17: 258 > 03/19: 276 > 03/20: 370 > 03/21: 342 > 03/24: 701 > 03/25: 568 -- Dose of methotrexate 03/25 -- > 03/27: 543 - Pt with increased RLQ pain 03/27 prompting her to present first to [facility] where beta was noted to have decreased slightly from 03/25. TVUS not directly reviewed, however records indicatea 1.5 cm unknown structure was seen in the R adnexa. - Patient was discharged home from [facility], but due to persistent pain [...] with patient that her beta hCG at [facility] today was encouraging. Explained that [...] Dispo: stable for discharge home from a COMMUNITY PRODUCT SPECIALIST standpoint. Thank you for including us in the care of this patient. This consult was staffed with Dr. Bowers. Please message on-call COMMUNITY PRODUCT SPECIALIST resident via [employer] Secure Chat or page [phone] (M-F 6a-6p) or [phone] (nights/weekends) for questions or concerns regarding this patient's care. Ivon Marmolejo MD PGY3 Obstetrics and Gynecology [1] Past Medical History: Diagnosis Date Other specified health status No pertinent past medical history [2] Past Surgical History: Procedure Laterality Date DENTAL SURGERY N/A Dental surgery from [facility] TONSILLECTOMY N/A Tonsillectomy from [facility] [3] Family History Problem Relation Name [...] SOA, and urinary symptoms. Medical records from [facility] reviewed: 03/26/2025 -- HCG trends recorded (03/17 -- 258, 03/19--276. 03/20--370. 03/21--342. 03/24--701. 03/25--568.), documented a 1gm Methotrexate given IM on 03/25/2025. 03/27/2025 -- TVUS with1.5cm unknown structure in the right adenxa, 03/27 -- HCG 543. History provided by: Patient desk clerk used: No Patient History Past Medical History[1] [...] does not include homicidal or suicidal ideation. [place] Coma Scale Score: 15 ED Course & [...] Abnormality Status --------- ------ ED HIV 1/2 Antibody/Anti...[[id number]] Normal Final result Please view results for [...] 11:57 PM MDM: Patient seen by the [facility] physician and followed-up by myself. In summary: NARRATIVE: Patient is a 24-year-old female who presents with complaints of diffuse right-sided abdominal discomfort. Has been seen multiple times at [facility] and had HCGs done. Has not had an appropriate doubling. Was given a dose of IM methotrexate a couple of days ago. Had an ult rasound done earlier today which did still document a 1.5 cm mass in the right adnexa and hCG in the mid 500s. Patient otherwise had a reassuring exam and H&H and was discharged for outpatient dairy feed worker follow-up. Was offered some hydroxyzine at that time, but deferred. Patient presented to our ER for 2nd opinion of her own accord. H&H stable. HCG still in the 600range. Transvaginal ultrasound does not note a right adnexal mass at this time. Given unclear hCG trend and patient concern, dairy feed worker was consulted. Patient signed out pending final dairy feed worker recommendations. Clinical Impressions as of 03/28/2533 [...] mg Oral Given Ivana Loredo PA-C EMR Dragon/Prototype Machine Operator disclaimer: Much of this encounter note is an electronic weatherization technician of spoken language to printed text. Electronic weatherization technician of spoken language may permit erroneous, or [...] as able. Please increase your water intake. [place] use of warm and/or cold compresses. Primary [...] here is available to you via the [employer] Internet portal. Please make sure that you are registered for access to this. Disposition Discharge AVS (Chinese Snapshot) - Printed 03/28/2025 Follow-Ups Go to Sarika Moyer APRN; As needed Follow up with [facility] Obstetrics & Gynecology (Obstetrics and Gynecology) [...] Reactive Non Reactive 03/27/2025 9:26 PM EDT [facility] Comment:Screening for HIV 1 & 2 antibodies, and P24 antigen is NONREACTIVE. No confirmatory testing is required. Blood Venous blood specimen / Unknown Venipuncture / Unknown 03/27/2025 8:31 PM EDT 03/27/2025 8:44 PM EDT Result [facility] us Rose Cortes MD LAB BLOOD ORDERABLES Final Resu lt [facility] [address] [place] [address] * Hepatitis C Antibody - ED (03/27/2025 8:31 PM EDT) Hepatitis C Antibody Negative Negative 03/27/2025 9:26 PM EDT [facility] Blood Venous blood specimen / Unknown Venipuncture / Unknown 03/27/2025 8:31 PM EDT 03/27/2025 8:44 PM EDT Result [facility] us Rose Cortes MD LAB BLOOD ORDERABLES Final Resu lt [facility] [address] [place] [address] * Type and screen (03/27/2025 8:31 PM [...] TEST ORDERABLES Final Result Performing Organization Address [facility] de Phone Number BLOOD BANK [address] [place] [address], [place] * (ABNORMAL) hCG, quantitative, (03/27/2025 8:31 PM EDT) hCG, Total Beta 626.2(H) <5 mIU/mL 03/27/2025 9:[address] [facility] Blood Venous blood specimen / Unknown Venipuncture / Unknown 03/27/2025 8:31 PM EDT 03/27/2025 8:41 PM EDT Narrative [facility] - 03/27/2025 9:22 PM EDT [...] ORDERABLES Final Resu lt Performing Organization Address City/[facility]/ZIP Co de Phone Number [facility] [address] [place] [address] * (ABNORMAL) CBC w/diff (03/27/2025 8:31 PM EDT) WBC Count 11.76(H) 3.70 - 10.30 10*3/uL LAB HEMATOLOGY METHOD 03/27/2025 8:44 PM EDT [facility] RBC Count 4.82 3.90 - 5.20 10*6/uL LAB HEMATOLOGY METHOD 03/27/2025 8:44 PM EDT [facility] HGB 14.2 11.2 - 15.7 g/dL LAB HEMATOLOGY METHOD 03/27/2025 8:44 PM EDT [facility] HCT 39.9 34.0 - 45.0 % LAB HEMATOLOGY METHOD 03/27/2025 8:44 PM EDT [facility] Platelet Count 523(H) 155 - 369 10*3/uL LAB HEMATOLOGY METHOD 03/27/2025 8:44 PM EDT [facility] MCV 83 79 - 98 fL LAB HEMATOLOGY METHOD 03/27/2025 8:44 PM EDT [facility] MCH 29.5 26.0 - 32.0 pg LAB HEMATOLOGY METHOD 03/27/2025 8:44 PM EDT [facility] MCHC 35.6(H) 30.7 - 35.5 g/dL LAB HEMATOLOGY METHOD 03/27/2025 8:44 PM EDT [facility] RDW 12.2 11.5 - 14.5 % LAB HEMATOLOGY METHOD 03/27/2025 8:44 PM EDT [facility] MPV 9.3 8.8 - 12.5 fL LAB HEMATOLOGY METHOD 03/27/2025 8:44 PM EDT [facility] nRBC 0.0 <=0.0 per 100 WBCs LAB HEMATOLOGY METHOD 03/27/2025 8:44 PM EDT [facility] Differential Type Automated LAB HEMATOLOGY METHOD 03/27/2025 8:44 PM EDT [facility] Neutrophils % 71 % LAB HEMATOLOGY METHOD 03/27/2025 8:44 PM EDT [facility] Lymphocytes % 25 % LAB HEMATOLOGY METHOD 03/27/2025 8:44 PM EDT [facility] Monocytes % 4 % LAB HEMATOLOGY METHOD 03/27/2025 8:44 PM EDT [facility] Eosinophils % 0 % LAB HEMATOLOGY METHOD 03/27/2025 8:44 PM EDT [facility] Basophils % 0 % LAB HEMATOLOGY METHOD 03/27/2025 8:44 PM EDT [facility] Immature Granulocytes % 0 % LAB HEMATOLOGY METHOD 03/27/2025 8:44 PM EDT [facility] Neutrophils Absolute 8.17(H) 1.60 - 6.10 10*3/uL LAB HEMATOLOGY METHOD 03/27/2025 8:44 PM EDT [facility] Lymphocytes Absolute 2.96 1.20 - 3.90 10*3/uL LAB HEMATOLOGY METHOD 03/27/2025 8:44 PM EDT [facility] Monocytes Absolute 0.52 0.30 - 0.90 10*3/uL LAB HEMATOLOGY METHOD 03/27/2025 8:44 PM EDT [facility] Eosinophils Absolute 0.03 0.00 - 0.50 10*3/uL LAB HEMATOLOGY METHOD 03/27/2025 8:44 PM EDT [facility] Basophils Absolute 0.05 0.00 - 0.10 10*3/uL LAB HEMATOLOGY METHOD 03/27/2025 8:44 PM EDT [facility] Immature Granulocytes Absolute 0.03 0.00 - 0.06 10*3/uL LAB HEMATOLOGY METHOD 03/27/2025 8:44 PM EDT [facility] Blood Venous blood specimen / Unknown Venipuncture / Unknown 03/27/2025 8:31 PM EDT 03/27/2025 8:41 PM EDT Narrative [facility] - 03/27/2025 8:44 PM EDT Therapeutic decision making should be based on absolute values, rather than percentages. us Rose Cortes MD LAB BLOOD ORDERABLES Final Resu lt [facility] [address] [place] [address] * (ABNORMAL) CMP (03/27/2025 8:31 PM EDT) Glucose, Plasma 96 74 - 99 mg/dL 03/27/2025 9:22 PM EDT [facility] BUN, Plasma 11 7 - 21 mg/dL 03/27/2025 9:22 PM EDT [facility] Creatinine, Plasma 0.48(L) 0.60 - 1.10 mg/dL 03/27/2025 9:22 PM EDT [facility] BUN/Creatinine Ratio 23 03/27/2025 9:22 PM EDT [facility] Sodium, Plasma 136 136 - 145 mmol/L 03/27/2025 9:22 PM EDT [facility] Potassium, Plasma 3.1(L) 3.6 - 4.9 mmol/L 03/27/2025 9:22 PM EDT [facility] Chloride, Plasma 100 97 - 107 mmol/L 03/27/2025 9:22 PM EDT [facility] CO2, Plasma 20(L) 22 - 29 mmol/L 03/27/2025 9:22 PM EDT [facility] Anion Gap 16 6 - 16 mmol/L 03/27/2025 9:22 PM EDT [facility] Total Calcium, Plasma 9.8 8.9 - 10.2 mg/dL 03/27/2025 9:22 PM EDT [facility] Total Protein 7.7 6.3 - 7.9 g/dL 03/27/2025 9:22 PM EDT [facility] Albumin, Plasma 4.9 3.5 - 5.2 g/dL 03/27/2025 9:22 PM EDT [facility] AST, Plasma 17 10 - 35 U/L 03/27/2025 9:22 PM EDT [facility] ALT, Plasma 8(L) 10 - 35 U/L 03/27/2025 9:22 PM EDT [facility] Alkaline Phosphatase, Plasma 102 35 - 104 U/L 03/27/2025 9:22 PM EDT [facility] Total Bilirubin, Plasma 1.3(H) 0.2 - 1.1 mg/dL 03/27/2025 9:22 PM EDT [facility] eGFRcr 137.5 mL/min/1.7 3m*2 03/27/2025 9:22 PM EDT [facility] Comment:Reported eGFRcr in m L/min/1.73m2 is based the CKD-EPI 2020 equation that does not use a race coefficient. Blood Venous blood specimen / Unknown Venipuncture / Unknown 03/27/2025 8:31 PM EDT 03/27/2025 8:41 PM EDT us Rose Cortes MD LAB BLOOD ORDERABLES Final Resu lt [facility] [address] [place] [address] documented in this encounter Visit Diagnoses Diagnosis [...] Foss) documented in this encounter Care Teams Master Craftsman Relationship Specialty Start Date End Date Sarika Moyer APRN [address] [place] [id number] PCP - General 10/14/20 documented as of this encounter
--- OUTSIDE RECORDS SUMMARY | 2025-04-05 22:43 | XMS_ITS | Encounter Summary ---
Author Organization [employer] ([place], [place], [place], [place], [place]) Address [address] [place] [address] Care Team Providers Care Biological Scientist Name Role Phone Sarika Moyer APRN Primary [...] 04/06/2025 2:31 AM EST Emergency [facility] Emergency Department [address] [place] [phone] Keke Gar MD [address] [place] [address] Ectopic (Primary Dx) Discharge Disposition: Home or [...] be sent through Care Everywhere. * Ectopic Upbe-[id number] (Georgian) documented in this encounter ED Notes * [...] Color, UA Yellow Clarity, UA Clear Specific [place], UA 1.025 1.002 - 1.030 pH, UA [...] doctor Call today Next Steps: Follow up THESIA TECH documented in this encounter Plan of [...] recommended. IMPRESSION: Authenticated and Keke Gar MD [facility] US ORDERABLES Edited Result - Final * (ABNORMAL) Comprehensive metabolic panel (04/05/2025 11:30 PM EST) Sodium 140 136 - 145 meq/L 04/06/2025 12:03 AM [facility] Potassium 3.3(L) 3.5 - 5.1 meq/L 04/06/2025 12:03 AM [facility] Chloride 102 98 - 107 meq/L 04/06/2025 12:03 AM [facility] CO2 25 21 - 32 meq/L 04/06/2025 12:03 AM [facility] Calcium 9.5 8.5 - 10.1 mg/dL 04/06/2025 12:03 AM [facility] Glucose 106(H) 74 - 100 mg/dL 04/06/2025 12:03 AM [facility] BUN 12 7 - 18 mg/dL 04/06/2025 12:03 AM [facility] Creatinine 0.60 0.55 - 1.10 mg/dL 04/06/2025 12:03 AM [facility] BUN/Creatinine 20 04/06/2025 12:03 AM [facility] Albumin 4.5 3.4 - 5.0 g/dL 04/06/2025 12:03 AM [facility] Alkaline Phosphatase 91 46 - 116 U/L 04/06/2025 12:03 AM [facility] ALT 10(L) 12 - 78 U/L 04/06/2025 12:03 AM [facility] AST 14(L) 15 - 37 U/L 04/06/2025 12:03 AM [facility] Total Bilirubin 0.3 0.2 - 1.0 mg/dL 04/06/2025 12:03 AM [facility] Protein, Total 8.0 6.4 - 8.2 gm/dL 04/06/2025 12:03 AM [facility] Anion Gap 16 11 - 22 04/06/2025 12:03 AM [facility] A/G Ratio 1.3 04/06/2025 12:03 AM [facility] Globulin 3.5 g/dL 04/06/2025 12:03 AM [facility] Osmolality Calc 279.6 mOsm/kg 12:03 AM [facility] eGFR (mL/min/1.73m2) >60 >=60 mL/min/1.7 3m2 04/06/2025 12:03 AM [facility] Comment:ESTIMATED GFR IS NOT ACCURATE CREATININE CLEARANCE IN PREDICTING GLOMERULAR FILTRATION RATE. ESTIMATED GFR IS NOT APPLICABLE FOR DIALYSIS PATIENTS. Blood Venipuncture / Unknown 04/05/2025 11:30 PM EST 04/05/2025 11:41 PM EST us Keke Gar MD LAB BLOOD ORDERABLES Lainey mckay Result [facility] [address] [id number] [phone] * (ABNORMAL) CBC with Auto Diff (04/05/2025 11:30 PM EST) WBC 9.8 4.8 - 10.8 K/ L 04/05/2025 11:45 PM [facility] RBC 4.72 3.50 - 5.20 M/ L 04/05/2025 11:45 PM [facility] Hemoglobin 13.8 11.7 - 15.8 GM/DL 04/05/2025 11:45 PM [facility] Hematocrit 40.9 35.0 - 47.0 % 04/05/2025 11:45 PM [facility] MCV 87 81 - 101 fL 04/05/2025 11:45 PM [facility] MCH 29.2 27.0 - 34.0 pg 04/05/2025 11:45 PM [facility] MCHC 33.7 32.0 - 36.0 GM/DL 04/05/2025 11:45 PM [facility] RDW 13.1 11.5 - 14.5 % 04/05/2025 11:45 PM [facility] Platelets 511(H) 150 - 400 K/CU MM 04/05/2025 11:45 PM [facility] MPV 9.2(L) 9.4 - 12.4 fL 04/05/2025 11:45 PM [facility] Nucleated Red Blood Cell 0.0 0 - 0.2 % 04/05/2025 11:45 PM [facility] % Neutros 65 37 - 80 % 04/05/2025 11:45 PM [facility] % Lymphs 27 10 - 50 % 04/05/2025 11:45 PM [facility] % Monos 6 5 - 13 % 04/05/2025 11:45 PM [facility] % Eos 0.8 0.0 - 7.0 % 04/05/2025 11:45 PM [facility] % Baso 1 0 - 3 % 04/05/2025 11:45 PM [facility] NRBC Absolute <0.01 0 - 0.012 K/ul 04/05/2025 11:45 PM [facility] # Neutros 6.35 2.00 - 6.90 K/ L 04/05/2025 11:45 PM EST [facility] # Lymphs 2.68 0.60 - 3.40 K/ L 04/05/2025 11:45 PM EST [facility] # Monos 0.62 0.00 - 0.90 K/ L 04/05/2025 11:45 PM EST [facility] # Eos 0.08 0.00 - 0.70 K/ L 04/05/2025 11:45 PM EST [facility] # Baso 0.05 0.00 - 0.20 K/ L 04/05/2025 11:45 PM EST [facility] % Imm Grans 0.20 % 04/05/2025 11:45 PM EST [facility] # IG 0.02(H) 0.00 - 0.00 K/uL 04/05/2025 11:45 PM EST [facility] Blood Venipuncture / Unknown 04/05/2025 11:30 PM EST 04/05/2025 11:41 PM EST Narrative [facility] - 04/05/2025 11:45 PM [...] MD LAB BLOOD ORDERABLES Lainey l Result [facility] [address] [place], [place] [id number], [facility] [phone] * (ABNORMAL) Urinalysis w/Microscopic (04/05/2025 11:04 PM EST) Color, UA Yellow 04/05/2025 11:43 PM EST [facility] Clarity, UA Clear 04/05/2025 11:43 PM [facility] Specific [place], UA 1.025 1.002 - 1.030 04/05/2025 11:43 PM [facility] pH, UA 6.0 5.0 - 9.0 04/05/2025 11:43 PM [facility] Leukocytes, UA Negative Negative 04/05/2025 11:43 PM [facility] Nitrite, UA Negative Negative 04/05/2025 11:43 PM [facility] Protein, UA 1+(A) Negative 04/05/2025 11:43 PM [facility] Glucose, UA Negative Negative 04/05/2025 11:43 PM [facility] Ketones, UA Trace(A) Negative 04/05/2025 11:43 PM [facility] Urobilinogen, UA 0.2 mg/dL Normal 04/05/2025 11:43 PM [facility] Bilirubin, UA Negative Negative 04/05/2025 11:43 PM [facility] Blood, UA 3+(A) Negative 04/05/2025 11:43 PM [facility] RBC, UA 5-10(A) None Seen, Rare /HPF 04/05/2025 11:43 PM [facility] WBC, UA 0-5 None Seen, Occasional , 0-5 /HPF 04/05/2025 11:43 PM [facility] Bacteria, UA 2+(A) None Seen 04/05/2025 11:43 PM [facility] Mucus 1+(A) Trace 04/05/2025 11:43 PM [facility] SQUAMOUS EPITHELIAL 0-5(A) None Seen, Rare /HPF 04/05/2025 11:43 PM [facility] Ca Oxalate [place], UA 2+(A) (none) 04/05/2025 11:43 PM [facility] Specimen Source Urine, Clean Catch 04/05/2025 11:43 PM [facility] Urine URINE SPECIMEN COLLECTION, CLEAN CATCH / Unknown 04/05/2025 11:04 PM EST 04/05/2025 11:04 PM EST us Keke Gar MD URINE ORDERABLES Final Re sult [facility] [address] [id number], [facility] [phone] documented in this encounter Visit Diagnoses Diagnosis Ectopic - Primary Unspecified ectopic without intrauterine documented in this encounter Care Teams Biological Scientist Relationship Specialty Start Date End Date Sarika Moyer, SWIMMING POOL SERVICER [address] [place] [address] PCP - General Nurse Practitioner 04/05/25 documented as of this encounter
--- OUTSIDE RECORDS SUMMARY | 2025-04-10 23:39 | XMS_ITS | Encounter Summary ---
Author Organization [employer] ([place], [place], [place], [place], [place]) Address [address] [place] [address] Care Team Providers Care Live In Housekeeper Name Role Phone Sarika Moyer ORDER TAKER Primary Care Provider + Reason for Visit [...] EST - 04/11/2025 5:09 AM EST Emergency [facility] Emergency Department [address] [place] [phone] Farzad Stiles MD [address] [place] [address] Ectopic (Primary Dx); Hypokalemia Discharge Disposition: Home [...] Follow-up with your primary care doctor or parts counter associate, call for appointment. Return to the emergency department for any new or worsening symptoms. EMS DEVELOPMENT CONSULTANT * Attachments The following attachments cannot be sent through Care Everywhere. * Hypokalemia (Algerian) * Ectopic Evku-dd-[id number] (Algerian) documented in this encounter ED Notes * [...] 2. Hypokalemia Farzad Stiles MD 04/11/25 0508 EMS DEVELOPMENT CONSULTANT documented in this encounter Plan of [...] the cul de sac. IMPRESSION: Authenticated and Frazad Stiles MD [facility] ORDERABLES Edited Result - Final * hCG, quantitative, (04/11/2025 1:20 AM EST) HCG Serum Quant 133 mIU/mL 1:58 AM EST [facility] Comment: Results of the [...] MD LAB BLOOD ORDERABLES Final Resu lt [facility] [address] [place] [address] * (ABNORMAL) Comprehensive metabolic panel (04/11/2025 1:20 AM EST) Sodium 142 136 - 145 meq/L 04/11/2025 1:58 AM EST [facility] Potassium 3.1(L) 3.5 - 5.1 meq/L 04/11/2025 1:58 AM EST [facility] Chloride 105 98 - 107 meq/L 04/11/2025 1:58 AM EST [facility] CO2 28 21 - 32 meq/L 04/11/2025 1:58 AM EST [facility] Calcium 9.0 8.5 - 10.1 mg/dL 04/11/2025 1:58 AM EST [facility] Glucose 105(H) 74 - 100 mg/dL 04/11/2025 1:58 AM EST [facility] BUN 11 7 - 18 mg/dL 04/11/2025 1:58 AM EST [facility] Creatinine 0.61 0.55 - 1.10 mg/dL 04/11/2025 1:58 AM [facility] BUN/Creatinine 18 04/11/2025 1:58 AM [facility] Albumin 3.9 3.4 - 5.0 g/dL 04/11/2025 1:58 AM [facility] Alkaline Phosphatase 78 46 - 116 U/L 04/11/2025 1:58 AM [facility] ALT 12 12 - 78 U/L 04/11/2025 1:58 AM [facility] AST 11(L) 15 - 37 U/L 04/11/2025 1:58 AM [facility] Total Bilirubin 0.4 0.2 - 1.0 mg/dL 04/11/2025 1:58 AM [facility] Protein, Total 7.1 6.4 - 8.2 gm/dL 04/11/2025 1:58 AM [facility] Anion Gap 12 11 - 22 04/11/2025 1:58 AM [facility] A/G Ratio 1.2 04/11/2025 1:58 AM [facility] Globulin 3.2 g/dL 04/11/2025 1:58 AM [facility] Osmolality Calc 282.9 mOsm/kg 1:58 AM [facility] eGFR (mL/min/1.73m2) >60 >=60 mL/min/1.7 3m2 04/11/2025 1:58 AM [facility] Comment:ESTIMATED GFR IS NOT ACCURATE CREATININE CLEARANCE IN PREDICTING GLOMERULAR FILTRATION RATE. ESTIMATED GFR IS NOT APPLICABLE FOR DIALYSIS PATIENTS. Blood Venipuncture / Unknown 04/11/2025 1:20 AM EST 04/11/2025 1:23 AM EST us Farzad Stiles MD LAB BLOOD ORDERABLES Final Resu lt [facility] [address] [place] [address], [facility] [phone] * (ABNORMAL) CBC with Auto Diff (04/11/2025 1:20 AM [facility]) WBC 7.3 4.8 - 10.8 K/ L 04/11/2025 1:27 AM [facility] RBC 4.32 3.50 - 5.20 M/ L 04/11/2025 1:27 AM [facility] Hemoglobin 12.7 11.7 - 15.8 GM/DL 04/11/2025 1:27 AM [facility] Hematocrit 37.8 35.0 - 47.0 % 04/11/2025 1:27 AM [facility] MCV 88 81 - 101 fL 04/11/2025 1:27 AM [facility] MCH 29.4 27.0 - 34.0 pg 04/11/2025 1:27 AM [facility] MCHC 33.6 32.0 - 36.0 GM/DL 04/11/2025 1:27 AM [facility] RDW 13.2 11.5 - 14.5 % 04/11/2025 1:27 AM [facility] Platelets 432(H) 150 - 400 K/CU MM 04/11/2025 1:27 AM [facility] MPV 9.1(L) 9.4 - 12.4 fL 04/11/2025 1:27 AM [facility] Nucleated Red Blood Cell 0.0 0 - 0.2 % 04/11/2025 1:27 AM [facility] % Neutros 55 37 - 80 % 04/11/2025 1:27 AM [facility] % Lymphs 34 10 - 50 % 04/11/2025 1:27 AM [facility] % Monos 9 5 - 13 % 04/11/2025 1:27 AM [facility] % Eos 1.5 0.0 - 7.0 % 04/11/2025 1:27 AM [facility] % Baso 1 0 - 3 % 04/11/2025 1:27 AM [facility] NRBC Absolute <0.01 0 - 0.012 K/ul 04/11/2025 1:27 AM EST [facility] # Neutros 4.04 2.00 - 6.90 K/ L 04/11/2025 1:27 AM EST [facility] # Lymphs 2.51 0.60 - 3.40 K/ L 04/11/2025 1:27 AM EST [facility] # Monos 0.62 0.00 - 0.90 K/ L 04/11/2025 1:27 AM EST [facility] # Eos 0.11 0.00 - 0.70 K/ L 04/11/2025 1:27 AM EST [facility] # Baso 0.04 0.00 - 0.20 K/ L 04/11/2025 1:27 AM EST [facility] % Imm Grans 0.10 % 04/11/2025 1:27 AM EST [facility] # IG 0.01(H) 0.00 - 0.00 K/uL 04/11/2025 1:27 AM EST [facility] Blood Venipuncture / Unknown 04/11/2025 1:20 AM EST 04/11/2025 1:23 AM EST Narrative [facility] - 04/11/2025 1:27 AM [...] MD LAB BLOOD ORDERABLES Final Resu lt [facility] [address] [place], [place] [address] [phone] documented in this encounter Visit Diagnoses Diagnosis [...] access) documented in this encounter Care Teams Live In Housekeeper Relationship Specialty Start Date End Date Sarika Moyer, ORDER TAKER [address] [place] [address] PCP - General Nurse Practitioner 04/05/25 documented as of this encounter
[2025-04-11 09:50] VITALS: BP 157/97; PULSE 63; RESP 22; TEMP 36.7; O2SAT 95; BMI 18.8
--- OUTSIDE RECORDS SUMMARY | 2025-04-11 09:51 | XMS_ITS | Encounter Summary ---
Author Organization Healthcare Address [address] [id number] Care Team Providers Care Bankruptcy Judge Name Role Phone Sarika Moyer COMPUTED TOMOGRAPHY SCANNER OPERATOR Primary Care Provider + Encounter Details [...] on filedocumented in this encounter Care Teams Bankruptcy Judge Relationship Specialty Start Date End Date Sarika Moyer, COMPUTED TOMOGRAPHY SCANNER OPERATOR [address] [address] PCP - General 10/14/20 documented as of this encounter
--- OUTSIDE RECORDS SUMMARY | 2025-04-11 09:52 | XMS_ITS | Encounter Summary ---
Author Organization [employer] ([place], [place], [place], [place], [place]) Address [address] [place] [address] Care Team Providers Care Physician Compensation Analyst Name Role Phone Sarika Moyer MOLECULAR BIOLOGY SCIENTIST Primary Care Provider + Encounter Details Date Type Department Care Team (Latest Contact Info) Description 04/10/2025 Travel Social History Tobacco Use Types Packs/Day [...] on filedocumented in this encounter Care Teams Physician Compensation Analyst Relationship Specialty Start Date End Date Sarika Moyer APRN [address] [place] [address] PCP - General Nurse Practitioner 04/05/25 documented as of this encounter
--- OUTSIDE RECORDS SUMMARY | 2025-04-11 09:52 | XMS_ITS | Clinical Summary ---
Author Organization Healthcare Address [address] [id number] Care Team Providers Care Radiology Equipment Servicer Name Role Phone Sarika Moyer COMBINATION MACHINE TOOL OPERATOR Primary Care Provider + Allergies Active Allergy Reactions Criticality Noted Date Comments Escitalopram Anaphylaxis High 03/27/2025 Robitussin Dm Max Day-Night Anxiety Low 03/27/20 Medications No known medications Active Problems Comments Yes No known active problems Encounters Date Type Department Care Team Description 03/27/2025 8:35 PM EDT - 03/28/2025 1:22 AM EDT Emergency [facility] Emergency Department [address] [place] [address] Rose Cortes MD of unknown anatomic location (Primary Dx) Discharge Disposition: Home or Self Care 03/27/2025 Travel 03/17/2025 Telephone Obstetrics & Gynecology [address] [place] [phone] Chiki Cardenas MD from Last 3 [...] 10/19/2024 10/19/2014, 05/21/2006, 08/26/2003, Additional history exists [id number] Vaccine (1 - season) 2025 UKY-Influenza Vaccine [...] Resu lt [facility] [address] [place] [address] * Hepatitis C Antibody - ED (03/27/2025 8:31 PM EDT) Hepatitis C Antibody Negative Negative 03/27/2025 9:26 PM EDT [facility] Blood Venous blood specimen / Unknown Venipuncture / Unknown 03/27/2025 8:31 PM EDT 03/27/2025 8:44 PM EDT us Rose Cortes MD LAB BLOOD ORDERABLES Final Resu lt [facility] [address] [place] [address] * (ABNORMAL) CBC w/diff (03/27/2025 8:31 PM EDT) Pathologist [facility] WBC Count 11.76(H) 3.70 - 10.30 [...] [facility] [place]/ZIP Co de Phone Number [facility] [address] [place] [address] * Type and screen (03/27/2025 8:31 PM [...] TEST ORDERABLES Final Result Performing Organization Address [facility] de Phone Number BLOOD BANK [address] [place] [address] * (ABNORMAL) hCG, quantitative, (03/27/2025 8:31 PM EDT) hCG, Total Beta 626.2(H) <5 mIU/mL 03/27/2025 9:22 PM EDT [facility] Blood Venous blood specimen / Unknown [...] Resu lt [facility] [address] [place] [address] * (ABNORMAL) CMP (03/27/2025 8:31 PM EDT) [...] lt [facility] [address] [place] [address] from Last 3 Months Insurance [facility] MEDICAID Care Teams Radiology Equipment Servicer Relationship Specialty Start Date End Date Sarika Moyer APRN [address] [address] PCP - General 10/14/20
--- OUTSIDE RECORDS SUMMARY | 2025-04-11 09:53 | XMS_ITS | Encounter Summary ---
Author Organization Healthcare Address [address] [place] [address] Care Team Providers Care Dispute Specialist Name Role Phone Sarika Moyer STOREPERSON Primary Care Provider + Encounter Details Date Type Department Care Team ([facility] st Contact Info) Description 03/17/2025 Telephone Obstetrics & Gynecology [address] [place] [phone] Chiki Cardenas MD [address] [place] [address] Social History Tobacco Use Types [...] on filedocumented in this encounter Care Teams Dispute Specialist Relationship Specialty Start Date End Date Sarika Moyer APRN [address] [place] [address] PCP - General 10/14/20 documented as of this encounter
--- OUTSIDE RECORDS SUMMARY | 2025-04-11 09:53 | XMS_ITS | Encounter Summary ---
Author Organization [employer] ([place], [place], [place], [place], [place]) Address [address] [place] [address] Care Team Providers Care Ferry Captain Name Role Phone Sarika Moyer SEWER LINE PHOTO INSPECTOR Primary Care Provider + Encounter Details Date [...] on filedocumented in this encounter Care Teams Ferry Captain Relationship Specialty Start Date End Date Sarika Moyer APRN [address] [place] [address] PCP - General Nurse Practitioner 04/05/25 documented as of this encounter
--- OUTSIDE RECORDS SUMMARY | 2025-04-11 09:53 | XMS_ITS | Clinical Summary ---
Author Organization [employer] ([place], [place], [place], [place], [place]) Address [address] [place] [address] Care Team Providers Care Antique Refinisher Name Role Phone Sarika Moyer A/C TECHNICIAN Primary Care Provider + Allergies Active Allergy Reactions Criticality Noted Date Comments Escitalopram 04/05/2025 Acetaminophen-Dm 04/05/2025 Medications No known medications Encounters Date Type Department Care Team Description 04/10/2025 11:39 PM EST - 04/11/2025 5:09 AM EST Emergency [facility] Emergency Department [address] [place] [phone] Farzad Stiles MD Ectopic (Primary Dx); Hypokalemia Discharge Disposition: Home or Self Care 04/10/2025 Travel 04/05/2025 10:43 PM EST - 04/06/2025 2:31 AM EST Emergency [facility] Emergency Department [address] [place] [phone] Keke Gar MD Ectopic (Primary Dx) Discharge [...] Mass Index 19.04 04/10/2025 11:46 PM EST Plan of Treatment Health Maintenance Due Date Last Done Comments Depression Screening (12+) 2014 Tobacco Cessation Counseling and Screening (12+) 2014 HIV Screening 2017 Meningococcal B Vaccine (1 o f 2 - Standard) 2018 Hepatitis C Screening 2020 Pneumococcal Vaccine: 0-49 Y ears (1 of 2 - PCV) 2021 05/31/2003, 2002, 2002, Additional history exists Lipid Panel 2022 Pap Smear 2023 DTAP/TDAP/TD VACCINES (7 - T d or Tdap) 10/19/2024 10/19/2014, 05/21/2006, 08/26/2003, Additional history exists COVID-19 VACCINE ( - 2023-2 5 season) 2025 Influenza Vaccine (#1) 2025 Procedures Procedure Name Priority Date/Time Associated Diagnosis Comments US OB TRANSVAGINAL STAT 04/11/2025 2: 29 AM EST HCG, QUANTITATIVE, STAT 04/11/2025 1:20 AM EST COMPREHENSIVE METABOLIC PANEL STAT 04/11/2025 1:20 AM EST CBC W/ AUTO DIFF STAT 04/11/2025 1:20 AM EST US OB TRANSVAGINAL STAT 04/06/2025 12 :35 AM EST COMPREHENSIVE METABOLIC PANEL STAT 04/05/2025 11:30 PM EST CBC W/ AUTO DIFF STAT 04/05/2025 11:3 0 PM EST URINALYSIS W/ MICROSCOPIC STAT 04/05/2025 11:04 PM EST from Last 3 Months Results * US OB transvaginal (04/11/2025 2:29 AM EST) Only the most recent of2 resultswithin the time period is included. Anatomical Region Laterality Modality Pelvis Ultrasound 04/11/2025 [...] sac. IMPRESSION: Authenticated and Farzad Stiles MD [facility] ORDERABLES Edited Result - Final * (ABNORMAL) CBC with Auto Diff (04/11/2025 1:20 AM EST) Only the most recent of2 resultswithin the time period is included. WBC 7.3 4.8 - 10.8 K/ L 04/11/2025 1:27 AM EST [facility] RBC 4.32 3.50 - 5.20 M/ L 04/11/2025 1:27 AM EST [facility] Hemoglobin 12.7 11.7 - 15.8 GM/DL 04/11/2025 1:27 AM [facility] Hematocrit 37.8 35.0 - 47.0 % 04/11/2025 1:27 AM [facility] MCV 88 81 - 101 fL 04/11/2025 1:27 AM [facility] MCH 29.4 27.0 - 34.0 pg 04/11/2025 1:27 AM [facility] MCHC 33.6 32.0 - 36.0 GM/DL 04/11/2025 1:27 AM [facility] RDW 13.2 11.5 - 14.5 % 04/11/2025 1:27 AM [facility] Platelets 432(H) 150 - 400 K/CU MM 04/11/2025 1:27 AM [facility] MPV 9.1(L) 9.4 - 12.4 fL 04/11/2025 1:27 AM [facility] Nucleated Red Blood Cell 0.0 0 - 0.2 % 04/11/2025 1:27 AM [facility] % Neutros 55 37 - 80 % 04/11/2025 1:27 AM [facility] % Lymphs 34 10 - 50 % 04/11/2025 1:27 AM [facility] % Monos 9 5 - 13 % 04/11/2025 1:27 AM [facility] % Eos 1.5 0.0 - 7.0 % 04/11/2025 1:27 AM [facility] % Baso 1 0 - 3 % 04/11/2025 1:27 AM [facility] NRBC Absolute <0.01 0 - 0.012 K/ul 04/11/2025 1:27 AM [facility] # Neutros 4.04 2.00 - 6.90 K/ L 04/11/2025 1:27 AM [facility] # Lymphs 2.51 0.60 - 3.40 K/ L 04/11/2025 1:27 AM EST [facility] # Monos 0.62 0.00 - 0.90 K/ L 04/11/2025 1:27 AM EST [facility] # Eos 0.11 0.00 - 0.70 K/ L 04/11/2025 1:27 AM EST [facility] # Baso 0.04 0.00 - 0.20 K/ L 04/11/2025 1:27 AM EST [facility] % Imm Grans 0.10 % 04/11/2025 1:27 AM EST [facility] # IG 0.01(H) 0.00 - 0.00 K/uL 04/11/2025 1:27 AM EST [facility] Blood Venipuncture / Unknown 04/11/2025 1:20 AM EST 04/11/2025 1:23 AM EST Narrative [facility] - 04/11/2025 1:27 AM EST When [...] MD LAB BLOOD ORDERABLES Final Resu lt [facility] [address] [place] [address] * hCG, quantitative, (04/11/2025 1:20 AM EST) HCG Serum Quant 133 mIU/mL 1:58 AM EST [facility] Comment: Results of the HCG quant [...] MD LAB BLOOD ORDERABLES Final Resu lt [facility] [address] [place] [address] * (ABNORMAL) Comprehensive metabolic panel (04/11/2025 1:20 AM EST) Only the most recent of2 resultswithin the time period is included. Sodium 142 136 - 145 meq/L 04/11/2025 1:58 AM [facility] Potassium 3.1(L) 3.5 - 5.1 meq/L 04/11/2025 1:58 AM EST [facility] Chloride 105 98 - 107 meq/L 04/11/2025 1:58 AM EST [facility] CO2 28 21 - 32 meq/L 04/11/2025 1:58 AM EST [facility] Calcium 9.0 8.5 - 10.1 mg/dL 04/11/2025 1:58 AM EST [facility] Glucose 105(H) 74 - 100 mg/dL 04/11/2025 1:58 AM EST [facility] BUN 11 7 - 18 mg/dL 04/11/2025 1:58 AM EST [facility] Creatinine 0.61 0.55 - 1.10 mg/dL 04/11/2025 1:58 AM [facility] BUN/Creatinine 18 04/11/2025 1:58 AM [facility] Albumin 3.9 3.4 - 5.0 g/dL 04/11/2025 1:58 AM [facility] Alkaline Phosphatase 78 46 - 116 U/L 04/11/2025 1:58 AM [facility] ALT 12 12 - 78 U/L 04/11/2025 1:58 AM [facility] AST 11(L) 15 - 37 U/L 04/11/2025 1:58 AM [facility] Total Bilirubin 0.4 0.2 - 1.0 mg/dL 04/11/2025 1:58 AM [facility] Protein, Total 7.1 6.4 - 8.2 gm/dL 04/11/2025 1:58 AM [facility] Anion Gap 12 11 - 04/11/2025 1:58 AM [facility] A/G Ratio 1.2 04/11/2025 1:58 AM [facility] Globulin 3.2 g/dL 04/11/2025 1:58 AM [facility] Osmolality Calc 282.9 mOsm/kg 1:58 AM [facility] eGFR (mL/min/1.73m2) >60 >=60 mL/min/1.7 3m2 04/11/2025 1:58 AM [facility] Comment:ESTIMATED GFR IS NOT ACCURATE CREATININE CLEARANCE IN PREDICTING GLOMERULAR FILTRATION RATE. ESTIMATED GFR IS NOT APPLICABLE FOR DIALYSIS PATIENTS. Blood Venipuncture / Unknown 04/11/2025 1:20 AM EST 04/11/2025 1:23 AM EST us Farzad Stiles MD LAB BLOOD ORDERABLES Final Resu lt [facility] [address] [place] [address] * (ABNORMAL) Urinalysis w/Microscopic (04/05/2025 11:04 PM EST) Color, UA Yellow 04/05/2025 11:43 PM [facility] Clarity, UA Clear 04/05/2025 11:43 PM [facility] Specific [place], UA 1.025 1.002 - 1.030 04/05/2025 11:43 PM [facility] pH, UA 6.0 5.0 - 9.0 04/05/2025 11:43 PM [facility] Leukocytes, UA Negative Negative 04/05/2025 11:43 PM [facility] Nitrite, UA Negative Negative 04/05/2025 11:43 PM [facility] Protein, UA 1+(A) Negative 04/05/2025 11:43 PM [facility] Glucose, UA Negative Negative 04/05/2025 11:43 PM [facility] Ketones, UA Trace(A) Negative 04/05/2025 11:43 PM [facility] Urobilinogen, UA 0.2 mg/dL Normal 04/05/2025 11:43 PM [facility] Bilirubin, UA Negative Negative 04/05/2025 11:43 PM [facility] Blood, UA 3+(A) Negative 04/05/2025 11:43 PM [facility] RBC, UA 5-10(A) None Seen, Rare /HPF 04/05/2025 11:43 PM [facility] WBC, UA 0-5 None Seen, Occasional , 0-5 /HPF 04/05/2025 11:43 PM [facility] Bacteria, UA 2+(A) None Seen 04/05/2025 11:43 PM [facility] Mucus 1+(A) Trace 04/05/2025 11:43 PM [facility] SQUAMOUS EPITHELIAL 0-5(A) None Seen, Rare /HPF 04/05/2025 11:43 PM [facility] Ca Oxalate [place], UA 2+(A) (none) 04/05/2025 11:43 PM [facility] Specimen Source Urine, Clean Catch 04/05/2025 11:43 PM [facility] Urine URINE SPECIMEN COLLECTION, CLEAN CATCH / Unknown 04/05/2025 11:04 PM EST 04/05/2025 11:04 PM EST us Keke Gar MD URINE ORDERABLES Final Re sult [facility] [address] [place] [address], [facility] [phone] from Last 3 Months Insurance [facility] Care Teams Antique Refinisher Relationship Specialty Start Date End Date Sarika Moyer, A/C TECHNICIAN [address] [place] [address] PCP - General Nurse Practitioner 04/05/25
--- OUTSIDE RECORDS SUMMARY | 2025-04-11 09:53 | XMS_ITS | Referral Summary ---
Author Organization [employer] ([place], [place], [place], [place], [place]) Address [address] [place] [address] Care Team Providers Care Pelts Skinner Name Role Phone Sarika Moyer TWISTER TENDER PAPER Primary Care Provider + Encounters Date Type Department Care Team Description 04/10/2025 11:39 PM EST - 04/11/2025 5:09 AM EST Emergency [facility] Emergency Department [address] [place] [address] Farzad Stiles MD Ectopic (Primary Dx); Hypokalemia Discharge Disposition: Home or Self Care 04/10/2025 Travel 04/05/2025 10:43 PM EST - 04/06/2025 2:31 AM EST Emergency [facility] Emergency Department [address] [place] [address] Keke Gar MD Ectopic (Primary [...] 04/10/2025 11:46 PM EST Plan of Treatment Not on [...] IMPRESSION: Authenticated and Farzad Stiles MD [facility] ORDERABLES Edited Result - Final * (ABNORMAL) [...] 0 - 0.012 K/ul 04/11/2025 1:27 AM [facility] # Neutros 4.04 2.00 - 6.90 K/ L 04/11/2025 1:27 AM [facility] # Lymphs 2.51 0.60 - 3.40 K/ L 04/11/2025 1:27 AM [facility] # Monos 0.62 0.00 - 0.90 K/ L 04/11/2025 1:27 AM [facility] # Eos 0.11 0.00 - 0.70 K/ L 04/11/2025 1:27 AM [facility] # Baso 0.04 0.00 - 0.20 K/ L 04/11/2025 1:27 AM [facility] % Imm Grans 0.10 % 04/11/2025 1:27 AM [facility] # IG 0.01(H) 0.00 - 0.00 K/uL 04/11/2025 1:27 AM [facility] Blood Venipuncture / Unknown 04/11/2025 1:20 AM EST 04/11/2025 1:23 AM EST Narrative [facility] - 04/11/2025 1:27 AM EST [...] lt Performing Organization Address City/[facility] Co de Phone Number [facility] [address] [phone] * hCG, quantitative, (04/11/2025 1:20 AM EST) HCG Serum Quant 133 mIU/mL 1:58 AM EST [facility] Comment: Results of the HCG [...] ORDERABLES Final Resu lt Performing Organization Address [facility]/ZIP Co de Phone Number [facility] [address] [phone] * (ABNORMAL) Comprehensive metabolic panel (04/11/2025 1:20 AM EST) Only the most recent of2 resultswithin the time period is included. Sodium 142 136 - 145 meq/L 04/11/2025 1:58 AM [facility] Potassium 3.1(L) 3.5 - 5.1 meq/L 04/11/2025 1:58 AM [facility] Chloride 105 98 - 107 meq/L 04/11/2025 1:58 AM [facility] CO2 28 21 - 32 meq/L 04/11/2025 1:58 AM [facility] Calcium 9.0 8.5 - 10.1 mg/dL 04/11/2025 1:58 AM [facility] Glucose 105(H) 74 - 100 mg/dL 04/11/2025 1:58 AM [facility] BUN 11 7 - 18 mg/dL 04/11/2025 1:58 AM [facility] Creatinine 0.61 0.55 - 1.10 mg/dL [...] LABORATORY Globulin 3.2 g/dL 04/11/2025 1:58 AM EST [facility] Osmolality Calc 282.9 mOsm/kg 1:58 AM [facility] eGFR (mL/min/1.73m2) >60 >=60 mL/min/1.7 3m2 04/11/2025 1:58 AM EST [facility] Comment:ESTIMATED GFR IS NOT ACCURATE CREATININE CLEARANCE IN PREDICTING GLOMERULAR FILTRATION RATE. ESTIMATED GFR IS NOT APPLICABLE FOR DIALYSIS PATIENTS. Blood Venipuncture / Unknown 04/11/2025 1:20 AM EST 04/11/2025 1:23 AM EST us Farzad Stiles MD LAB BLOOD ORDERABLES Final Resu lt [facility] [address] [place] [address], [facility] [phone] * (ABNORMAL) Urinalysis w/Microscopic (04/05/2025 11:04 PM EST) Color, UA Yellow 04/05/2025 11:43 PM [facility] Clarity, UA Clear 04/05/2025 11:43 PM [facility] Specific [place], UA 1.025 1.002 - 1.030 04/05/2025 11:43 PM [facility] pH, UA 6.0 5.0 - 9.0 04/05/2025 11:43 PM [facility] Leukocytes, UA Negative Negative 04/05/2025 11:43 PM [facility] Nitrite, UA Negative Negative 04/05/2025 11:43 PM [facility] Protein, UA 1+(A) Negative 04/05/2025 11:43 PM [facility] Glucose, UA Negative Negative 04/05/2025 11:43 PM [facility] Ketones, UA Trace(A) Negative 04/05/2025 11:43 PM [facility] Urobilinogen, UA 0.2 mg/dL Normal 04/05/2025 11:43 PM EST [facility] Bilirubin, UA Negative Negative 04/05/2025 11:43 PM EST [facility] Blood, UA 3+(A) Negative 04/05/2025 11:43 PM EST [facility] RBC, UA 5-10(A) None Seen, Rare /HPF 04/05/2025 11:43 PM EST [facility] WBC, UA 0-5 None Seen, Occasional , 0-5 /HPF 04/05/2025 11:43 PM EST [facility] Bacteria, UA 2+(A) None Seen 04/05/2025 11:43 PM EST [facility] Mucus 1+(A) Trace 04/05/2025 11:43 PM EST [facility] SQUAMOUS EPITHELIAL 0-5(A) None Seen, Rare /HPF 04/05/2025 11:43 PM EST [facility] Ca Oxalate [place], UA 2+(A) (none) 04/05/2025 11:43 PM EST [facility] Specimen Source Urine, Clean Catch 04/05/2025 11:43 PM EST [facility] Urine URINE SPECIMEN COLLECTION, CLEAN CATCH / Unknown 04/05/2025 11:04 PM EST 04/05/2025 11:04 PM EST us Keke Gar MD URINE ORDERABLES Final Re sult [facility] [address] [phone] from Last 3 Months Insurance [facility] [place] Care Teams Pelts Skinner Relationship Specialty Start Date End Date Sarika Moyer, TWISTER TENDER PAPER [address] [place], [place] [id number] PCP - General Nurse Practitioner 04/05/25
[2025-04-11 10:16] VITALS: BP 116/82; BP 127/96; PULSE 96; RESP 18; O2SAT 98
--- NOTE | 2025-04-11 10:22 | HMH.EDGENADL ---
Discharge Plan Disposition Patient Disposition: Home, Self-Care Prescriptions Prescriptions: New lidocaine 4 % adhesive patch,medicated 1 patch topical DAILY PRN (Reason: pain) Qty: 10 0RF No Action diazepam [Valium] 2 mg tablet 2 mg PO BID 7 Days Qty: 14 0RF fluoxetine 20 mg capsule 20 mg PO DAILY 30 Days Qty: 30 2RF Rx Instructions: take in AM diphenhydramine HCl [Benadryl Allergy] 12.5 mg/5 mL liquid 25 mg PO Q4-6H PRN (Reason: allergic reaction) Qty: 400 0RF Rx Instructions: Mix 10ml of maalox, 10ml of benadryl, 10ml of lidocaine - Swish and spit every 4-6 hours as needed. lidocaine HCl [Lidocaine Viscous] 2 % solution 1 applic PO Q4-6H PRN (Reason: pain) Qty: 420 0RF Rx Instructions: Mix 10ml of maalox, 10ml of benadryl, 10ml of lidocaine - Swish and spit every 4-6 hours as needed. alum-mag hydroxide-simeth [Maalox Advanced] 200-200-20 mg/5 mL suspension 10 ml PO Q4-6H PRN (Reason: magic mouthwash) 7 Days Qty: 420 0RF Rx Instructions: Mix 10ml of maalox, 10ml of benadryl, 10ml of lidocaine - Swish and spit every 4-6 hours as needed. hydroxyzine HCl 25 mg tablet 25 mg PO HS Qty: 30 0RF Referrals Follow up/Referrals: Sarika Moyer APRN [Primary Care Provider, Medical] - See instructions Activity Restrictions/Add. Instructions Additional Instructions/Restrictions: Increase your water intake and increase high-fiber foods in your diet to promote more regular bowel movements. Return to the emergency department for severe abdominal pain and follow-up with Dr. Lee as scheduled. Clinical Impressions Clinical Impression: Constipation, Ectopic Instructions Patient Instructions: DI for Acute Abdominal Pain Print Language Print Language: Martiniquais Discharge ED Provider: Cleo Coronado General Adult HPI General Chief complaint: Abdominal Pain Stated complaint: pain in abd Time Seen by Provider: 04/11/25 10:22 Mode of Arrival: Ambulatory Source of Information: Patient Description of Symptoms (Recalled from ER Triage Doc. by RN): pt is extremely anxious and tearful. states she has been to the ER multiple times because she needs reassurance. has been given 2 doses of methotrexate but is unsure what everything means. She denies any pain to me at this time but reports cramping. History of Present Illness HPI narrative: Patient is a 24-year-old with past medical history significant for ectopic currently being managed by Dr. Lee and is now received 2 doses of methotrexate last dose was on Saturday. Since second dose of methotrexate patient has had increased abdominal pain and cramping passing large blood clots from uterus. Patient had transvaginal ultrasound performed this morning at 4:40 AM at [place] and the ectopic measured larger than it did a week ago so patient was very concerned so decided to come to our emergency department for reevaluation. Patient has been taking Tylenol as needed for pain but reports that it is not helping. Pain is 5 out of 10 in the lower abdomen. Pain patient is tolerating pain okay but she is mainly just very nervous that she is going to from her ectopic and would like us to but I explained why ultrasound today at [place] showed that the ectopic was bigger than last ultrasound performed at [facility] despite receiving 2 doses of methotrexate. Patient also reports that she has not had a bowel movement in 4 days and has pain in her rectum and feels like she has to have a bowel movement. Related Data Previous Rx's ?Medication ?Instructions ?Recorded hydroxyzine HCl 25 mg tablet 25 mg PO HS #30 tabs 03/26/25 aluminum-mag hydroxide-simethicone 10 ml PO Q4-6H PRN magic mouthwash 04/09/25 200 mg-200 mg-20 mg/5 mL oral susp 7 days #420 mL (Maalox Advanced) diazepam 2 mg tablet (Valium) 2 mg PO BID 7 days #14 tabs 04/09/25 diphenhydramine HCl 12.5 mg/5 mL 25 mg (10 mL) PO Q4-6H PRN 04/09/25 oral liquid (Benadryl Allergy) allergic reaction #400 mL fluoxetine 20 mg capsule 20 mg PO DAILY 30 days #30 caps 04/09/25 lidocaine HCl 2 % mucosal solution 1 applic PO Q4-6H PRN pain #420 mL 04/09/25 (Lidocaine Viscous) lidocaine 4 % topical patch 1 patch topical DAILY PRN pain #10 04/11/25 ea Allergies Allergy/AdvReac Type Severity Reaction Status Date / Time escitalopram (From Lexapro) Allergy Severe Anaphylaxis Verified 04/09/25 15:31 dextromethorphan Allergy Hyper Verified 04/09/25 15:31 activity guaifenesin (From Robitussin) Allergy hyper Verified 04/09/25 15:31 activity PFSH PFSH Disclaimer: The information contained in this section may have been updated after the patient was seen, as this information can be updated by other users. Medical History No significant medical problems Surgical History History of tonsillectomy and adenoidectomy H/O oral surgery Family History Other No significant family history Social History Smoking Status: Never smoker alcohol intake: never current occupational status: employed Travel in the last 8 weeks?: None household members: spouse Have you lived/traveled outside US in past 30 days?: No Contact w/someone who lives/traveled outside US past 30 days?: No Exposure to someone with infectious disease in past 14 days?: No Do you have a fever (greater than 100.4 F or 38 C)?: No Have you tested positive for COVID-19?: No Exposed to someone with COVID-19 in past 14 days?: No Do you have a sore throat?: No Do you have a cough?: No Do you have any weakness?: No Do you have any diarrhea?: No Are you experiencing any unusual bleeding?: No Do you have any muscle aches/pain?: No Do you have any abdominal pain?: Yes Are you experiencing loss of taste or smell?: No ROS Obtained: Yes All systems reviewed & no additional complaints except as documented Physical Exam General General appearance: alert, in no apparent distress and anxious ENT ENT exam: Present mucous membranes moist Respiratory Respiratory exam: Absent respiratory distress Cardiovascular Cardiovascular exam: Present regular rate and normal rhythm Abdominal Exam Abdominal exam: Present soft; Absent distention, tenderness, guarding or rebound Neurological Exam Neurological exam: Present alert and oriented X3 Medical Decision Making Medical Records Screening: Per USPSTF and CDC recommendations, given the prevalence of disease in our region, it is our hospital?s policy to screen for HIV and viral Hepatitis for all patients aged 18 and over and those with ongoing risk factors. Lucho Inquiry Pt receiving controlled substance: No Vital Signs: 04/11/25 09:50 04/11/25 10:16 04/11/25 10:16 Temperature 98.1 F Temperature Source Oral Pulse Rate 96 H Pulse Rate [Right] 63 Respiratory Rate 22 18 Blood Pressure 127/96 H 116/82 Blood Pressure [Right Arm] 157/97 H Blood Pressure Mean 95 Blood Pressure Mean [Right Arm] 117 Blood Pressure Source Blood Pressure Position 02 Sat by Pulse Oximetry 95 98 Oxygen Delivery Method 04/11/25 11:35 04/11/25 12:02 04/11/25 12:49 Temperature 98.1 F Temperature Source Oral Pulse Rate 91 H 97 H 94 H Pulse Rate [Right] Respiratory Rate 18 Blood Pressure 134/107 H 145/115 H 148/87 H Blood Pressure [Right Arm] Blood Pressure Mean 112 123 Blood Pressure Mean [Right Arm] Blood Pressure Source Automatic Cuff Blood Pressure Position Supine 02 Sat by Pulse Oximetry 99 95 Oxygen Delivery Method Room Air Room Air Lab Data Lab Results 04/11/25 10:54: Urine Color Yellow, Urine Appearance Clear, Urine pH 7.0, Ur Specific [place] 1.025, Urine Protein 2+ A, Urine Glucose (UA) Negative, Urine Ketones 2+, Urine Blood 3+ A, Urine Nitrate Negative, Urine Bilirubin Negative, Urine Urobilinogen 1.0, Ur Leukocyte Esterase Negative, Urine RBC 5-10, Urine WBC None, Ur Squamous Epith Cells 5-10, Urine Bacteria 3+ 04/11/25 11:40: WBC 9.5, RBC 4.71, Hgb 14.0, Hct 41.1, MCV 87.3, MCH 29.7, MCHC 34.1, RDW 13.2, Plt Count 505 H, MPV 9.1, Neut % (Auto) 72.9, Lymph % (Auto) 21.4, [place] % (Auto) 4.9, Eos % (Auto) 0.3, Baso % (Auto) 0.3, Neut # (Auto) 6.9, Lymph # (Auto) 2.0, [place] # (Auto) 0.5, Eos # (Auto) 0.0, Baso # (Auto) 0.0, Sodium 140, Potassium 3.6, Chloride 104, Carbon Dioxide 25, Anion Gap 14.6, BUN 10 D, Creatinine 0.50 L, Estimated Creat Clear 110, Estimated GFR 154, Est GFR ( Amer) 187, Glucose 90, Calcium 9.7, Total Bilirubin 1.2, AST 26, ALT 15, Alkaline Phosphatase 81, Total Protein 8.2, Albumin 5.7 H, Globulin 2.5, Albumin/Globulin Ratio 2.3 H, HCG, Quant 134 H 04/11/25 11:40 04/11/25 11:40 Orders (Tests/Meds): ED MEDICATIONS Discontinued Medications Generic Name Dose Route Start Last Admin Trade Name Freq PRN Reason Stop Dose Admin Lactated Ringer's 1,000 mls @ 999 mls/hr 04/11/25 10:36 04/11/25 12:47 Lactated Ringer's 1000 Ml Bag IV 04/11/25 11:36 Not Given .Q1H1M ONE ORDERS Category Date Time Status POCUS Point of Care (ER Only) Stat Exams 04/11/25 10:27 Completed XR KUB Stat Exams 04/11/25 10:36 Completed Complete Blood Count Auto Diff Stat Lab 04/11/25 11:40 Completed Comprehensive Metabolic Panel Stat Lab 04/11/25 11:40 Completed HCG,Quantitative Stat Lab 04/11/25 11:40 Completed UA/RFX Microscopic Stat Lab 04/11/25 10:54 Completed Urine Microscopic Stat Lab 04/11/25 10:54 Completed Urine Culture Stat Micro 04/11/25 10:54 Received Medical Decision Narrative: In summary, this 24-year-old female presents to the emergency department today with abdominal pain. On initial evaluation patient is hypertensive normal heart rate saturating appropriately on room air afebrile no acute distress. Differential diagnosis includes but is not limited to ruptured ectopic, resolving ectopic , UTI, constipation. Based on these concerns, I ordered CBC CMP beta-hCG KUB UA. [facility] records personally interpreted and significant for transvaginal ultrasound performed this morning at 442 showing right adnexal mass 2.6 x 1.6 x 2.5 centimeters with small volume of free fluid in cul-de-sac. Intact blood flow to bilateral ovaries. Offered fluid bolus Tylenol and Toradol for treatment but patient declined at this time Labs personally reviewed demonstrate decreasing hcg quant 134 today. Hemoglobin stable. XR personally interpreted demonstrates significant stool burden in the rectum correlating with constipation likely contributing to patient's pain. Patient had a bowel movement in the emergency department and reports improvement of pain. Discussed with patient reassuring that her hCG quant is continuing to decrease. Low suspicion for ruptured ectopic based off of benign physical exam with no focal tenderness and free fluid only found in the cul-de-sac which can be physiologic. Recommended to follow-up with Dr. Lee for continued correlation of hCG quant. Procedures Limited Ultrasound Indication:: Abdominal pain Views:: OB ultrasound Limited OB ultrasound Indication: Abdominal pain positive test Identified structures: Pouch of Gomez and also right upper quadrant Findings: Uterus: Uterus no IUP Cul de sac: No free fluid visualized Morison's pouch Negative for free fluid Impression: -IUP: Absent -Free fluid: Absent Images saved to permanent archive The study was technically adequate CPT Transabdominal: 43400-77 This study was performed by me, and I personally interpreted all images/videos. Based on my clinical judgement, these images were [adequate/inadequate] and [did/did not] necessitate further imaging. Critical Care Critical Care Time Critical Care Time: No
--- NOTE | 2025-04-11 10:36 | XR_ITS ---
PROCEDURE INFORMATION: Exam: XR Abdomen Exam date and time: 04/11/2025 12:11 PM Age: 24 years old Clinical indication: Abdominal pain; Additional info: Abdominal pain x 2-3 weeks, ectopic TECHNIQUE: Imaging protocol: Radiologic exam of the abdomen. Views: Frontal supine view of the abdomen. 1 View. COMPARISON: CT ABDOMEN PELVIS WO CON 11/21/2023 3:38 PM FINDINGS: Gastrointestinal tract: Constipation throughout the colon. No dilated bowel Bones/joints: Unremarkable. IMPRESSION: No acute findings.
--- NOTE | 2025-04-11 10:46 | PC.NURSE ---
Called [facility] and they said that they were going to fax over the patients records.
[2025-04-11 11:02] LABS: Bilirubin,Urine Negative (Negative); Color,Urine YELLOW (Yellow); Glucose,Urine (UA) Negative (Negative); Ketones,Urine 2+ (Negative); Leukocyte Esterase,Urine NEGATIVE (Negative); PH,Urine 7.0 (5.0-8.5); Protein,Urine 2+ (Negative); Specific Gravity, Urine 1.025 (1.005-1.030); Urobilinogen,Urine 1.0 EU/dl (0.2)
[2025-04-11 11:05] LABS: Microscopic, Urine URINE MICROSCOPIC (MICROSCOPIC)
--- NOTE | 2025-04-11 11:10 | PC.NURSE ---
Labs and IVF delayed due to multiple unsuccessful IV attempts by multiple nurses. Pt states she is extremely anxious and is weeping. She is requesting to hold off on the IV at this time. notified. pt has no new complaints and call waggoner was left in reach
[2025-04-11 11:15] LABS: Bacteria,Urine 3+ /lpf
--- NOTE | 2025-04-11 11:30 | PC.NURSE ---
I rounded on the pt. I relayed per the provider that we could give her something for anxiety such as hydroxyzine or ativan. Pt states she would rather take something at home than here but that she does not like medication. pt expresses concern about not feeling safe to go home. She states she is scared the ectopic will rupture and kill her. She is still anxious and crying. pt is pacing around the room c/o extreme abd pain but declines anything to help with pain. notified.
[2025-04-11 11:35] VITALS: BP 134/107; PULSE 91; O2SAT 99
--- NOTE | 2025-04-11 11:43 | PC.NURSE ---
while i was obtaining pts IV access she was very tearful and anxious. States since her grandmother this year her anxiety and depression has increased. Now that she has miscarried she is afraid to sleep and feels very uneasy @ all times. states her boyfriend is no longer supportive and often talks down to her regarding the current situation. she denied direct suicidal ideation but states she just wants to go to sleep. I notified the MD regarding pt statements.
--- NOTE | 2025-04-11 11:45 | PC.NURSE ---
pt refused to have her Lactated Ringer's started at this time. pt reports that she wants to wait until after her x-ray is done.
[2025-04-11 11:49] LABS: Hematocrit 41.1 % (37.0-47.0); Hemoglobin 14.0 g/dL (12.2-16.2); Immature Granulocytes % 0.2 %; Mean Corpuscular HGB Conc 34.1 g/dL (31.8-35.4); Mean Corpuscular Hemoglobin 29.7 pg (27.0-31.2); Mean Corpuscular Volume 87.3 fl (81-99); Nucleated Red Blood Cells % 0 %; Platelet Count 505 K/mm3 (142-424); Red Blood Count 4.71 M/mm3 (4.20-5.40); Red Cell Distribution Width-SD 41.3 fL; White Blood Count 9.5 K/mm3 (4.8-10.8)
[2025-04-11 11:53] LABS: Albumin Level 5.7 g/dl (3.5-5.0); Chloride 104 mmol/L (98-107); Potassium 3.6 mmoL/L (3.5-5.1); Sodium 140 mmol/L (136-145)
[2025-04-11 11:56] LABS: Alanine Aminotransferase 15 U/L (12-78); Albumin/Globulin Ratio 2.3 (1.1-1.8); Alkaline Phosphatase 81 U/L (38-126); Anion Gap 14.6 mEq/L (5-15); Aspartate Amino Transferase 26 U/L (14-36); Bilirubin,Total 1.2 mg/dl (0.2-1.3); Blood Urea Nitrogen 10 mg/dl (7-17); Calcium 9.7 mg/dl (8.4-10.2); Carbon Dioxide 25 mmol/L (22.0-30.0); Creatinine Clearance Estimated 110 mL/min (50-200); Creatinine,Serum 0.50 mg/dl (0.52-1.04); Estimated Glomerular Filt Rate 154 ml/min (>60); GFR (African American) 187 ML/MIN (>60); Globulin 2.5 g/dL (1.3-3.2); Glucose 90 mg/dl (74-100); Total Protein,Serum 8.2 g/dl (6.3-8.2)
[2025-04-11 12:02] VITALS: BP 145/115; PULSE 97; O2SAT 95
[2025-04-11 12:49] VITALS: BP 148/87; PULSE 94; RESP 18; TEMP 36.7; O2SAT 99
== END 2025-04-11 12:50 | disposition home or self-care (01) ==
PROVIDERS: Emergency Provider Student in an Organized Health Care Education/Training Program; PCP Nurse Practitioner Family
DX: R10.9 Unspecified abdominal pain (principal); K59.00 Constipation, unspecified; Z87.59 Personal history of other complications of pregnancy, childbirth and the puerperium
CPT/HCPCS: 74018; 80053; 81003; 81015; 84702; 85025; 87086; 99284; 99285

== ENCOUNTER 2025-04-12 09:02 | Outpatient (CLI) | payer OTHER, SELFPAY ==
--- OUTSIDE RECORDS SUMMARY | 2025-03-27 19:35 | XMS_ITS | Encounter Summary ---
Author Organization Healthcare Address [address] [place] [address] Care Team Providers Care Casing Wringer Operator Name Role Phone Sarika Moyer ISAIAH Primary Care Provider + Reason for Visit * Reason Comments Pelvic Pain Encounter Details Date Type Department Care Team (Late st Contact Info) Description 03/27/2025 8:35 PM EDT - 03/28/2025 1:22 AM EDT Emergency PAV A Emergency Department [address] [place] [address] Rose Cortes MD [address] [place] [address] of unknown anatomic location (Primary Dx) Discharge [...] as able. Please increase your water intake. [place] use of warm and/or cold compresses. Primary [...] here is available to you via the [employer] portal. Please make sure that you [...] 24 y.o. with PUL being followed at [facility] who presents for RLQ pain. Patient reports that this is her first . She was having her beta hCG trended for pregnancyof unknown location, with the trend showing an inappropriate rise. Per [facility] records reviewed by ED MICHAEL, on 03/25/25 beta hCG was 568, down from 701. At this time patient received a dose of IM methotrexate. Yesterday morning/afternoon, patient reports that she had increased right lower quadrant/pelvic pain with associated nausea. At [facility] yesterday, beta hCG was found to [...] - Patient with PUL being followed at [facility] - Beta hCG trend shown to be inappropriately rising > 03/17: 258 > 03/19: 276 > 03/20: 370 > 03/21: 342 > 03/24: 701 > 03/25: 568 -- Dose of methotrexate 03/25 -- > 03/27: 543 - Pt with increased RLQ pain 03/27 prompting her to present first to [facility] where beta was noted to have decreased slightly from 03/25. TVUS not directly reviewed, however records indicatea 1.5 cm unknown structure was seen in the R adnexa. - Patient was discharged home from [facility], but due to persistent pain presented [...] with patient that her beta hCG at [facility] today was encouraging. Explained that often [...] Dispo: stable for discharge home from a RADIO JOURNALIST standpoint. Thank you for including us in the care of this patient. This consult was staffed with Dr. Bowers. Please message on-call RADIO JOURNALIST resident via [employer] Secure Chat or page [phone] (M-F 6a-6p) or [phone] (nights/weekends) for questions or concerns regarding this patient's care. Ivon Marmolejo MD PGY3 Obstetrics and Gynecology [1] Past Medical History: Diagnosis Date Other specified health status No pertinent past medical history [2] Past Surgical History: Procedure Laterality Date DENTAL SURGERY N/A Dental surgery from [facility] TONSILLECTOMY N/A Tonsillectomy from [employer] [facility] [3] Family History Problem Relation Name [...] SOA, and urinary symptoms. Medical records from [facility] reviewed: 03/26/2025 -- HCG trends recorded (03/17 -- 258, 03/19--276. 03/20--370. 03/21--342. 03/24--701. 03/25--568.), documented a 1gm Methotrexate given IM on 03/25/2025. 03/27/2025 -- TVUS with1.5cm unknown structure in the right adenxa, 03/27 -- HCG 543. History provided by: Patient diplomatic interpreter/translator used: No Patient History Past Medical History[1] [...] does not include homicidal or suicidal ideation. [place] Coma Scale Score: 15 ED Course & [...] Abnormality Status --------- ------ ED HIV 1/2 Antibody/Anti...[[id number]] Normal Final result Please view results for [...] 11:57 PM MDM: Patient seen by the [facility] physician and followed-up by myself. In summary: NARRATIVE: Patient is a 24-year-old female who presents with complaints of diffuse right-sided abdominal discomfort. Has been seen multiple times at [facility] and had HCGs done. Has not had an appropriate doubling. Was given a dose of IM methotrexate a couple of days ago. Had an ult rasound done earlier today which did still document a 1.5 cm mass in the right adnexa and hCG in the mid 500s. Patient otherwise had a reassuring exam and H&H and was discharged for outpatient farm crew member follow-up. Was offered some hydroxyzine at that time, but deferred. Patient presented to our ER for 2nd opinion of her own accord. H&H stable. HCG still in the 600range. Transvaginal ultrasound does not note a right adnexal mass at this time. Given unclear hCG trend and patient concern, farm crew member was consulted. Patient signed out pending final farm crew member recommendations. Clinical Impressions as of 03/28/2533 of [...] mg Oral Given Ivana Loredo PA-C EMR Dragon/Double Spindle Shaper Operator disclaimer: Much of this encounter note is an electronic flat screen worker of spoken language to printed text. Electronic flat screen worker of spoken language may permit erroneous, or [...] Ivana Loredo PA 03/28/25 0034 Cosigned by Rsoe Cortes MD at 03/28/2025 [...] as able. Please increase your water intake. [place] use of warm and/or cold compresses. Primary [...] here is available to you via the [employer] portal. Please make sure that you are registered for access to this. Disposition Discharge AVS (Spanish Snapshot) - Printed 03/28/2025 Follow-Ups Go to Sarika Moyer APRN; As needed Follow up with [facility] Obstetrics & Gynecology (Obstetrics and Gynecology) [...] PM EDT 03/27/2025 8:44 PM EDT Result [facility] us Rose Cortes MD LAB BLOOD ORDERABLES Final Resu lt [facility] [address] [place] [address] * Hepatitis C Antibody - ED (03/27/2025 8:31 PM EDT) Hepatitis C Antibody Negative Negative 03/27/2025 9:26 PM EDT [facility] Blood Venous blood specimen / Unknown Venipuncture / Unknown 03/27/2025 8:31 PM EDT 03/27/2025 8:44 PM EDT Result [facility] us Rose Cortes MD LAB BLOOD ORDERABLES Final Resu lt [facility] [address] [place] [address] * Type and screen (03/27/2025 8:31 PM [...] TEST ORDERABLES Final Result Performing Organization Address [facility] de Phone Number BLOOD BANK [address] [place] [address], [place] * (ABNORMAL) hCG, quantitative, (03/27/2025 8:31 PM EDT) hCG, Total Beta 626.2(H) <5 mIU/mL 03/27/2025 9:22 PM EDT [facility] Blood Venous blood specimen / Unknown [...] ORDERABLES Final Resu lt Performing Organization Address City/[facility]/ZIP Co de Phone Number [facility] [address] [place] [address] * (ABNORMAL) CBC w/diff (03/27/2025 8:31 PM [...] [facility] [address] [place] [address] * (ABNORMAL) CMP (03/27/2025 8:31 PM EDT) [...] lt [facility] [address] [place] [address] documented in this encounter Visit Diagnoses Diagnosis [...] Foss) documented in this encounter Care Teams Casing Wringer Operator Relationship Specialty Start Date End Date Sarika Moyer APRN [address] [address] PCP - General 10/14/20 documented as of this encounter
--- OUTSIDE RECORDS SUMMARY | 2025-04-05 22:43 | XMS_ITS | Encounter Summary ---
Author Organization [employer] ([place], [place], [place], [place], [place]) Address [address] [place] [address] Care Team Providers Care Bag End Sewer Name Role Phone Sarika Moyer APRN Primary [...] EST - 04/06/2025 2:31 AM EST Emergency [facility] [address] [place] [phone] Keke Gar MD [address] [place] [address] Ectopic (Primary Dx) Discharge Disposition: Home or [...] be sent through Care Everywhere. * Ectopic [id number] (Palestinian) documented in this encounter ED Notes * [...] are negative. Physical Exam ED Triage Vitals [04/05/256] Encounter Vitals Group BP (!) 128/90 Girls [...] Color, UA Yellow Clarity, UA Clear Specific [place], UA 1.025 1.002 - 1.030 pH, UA [...] doctor Call today Next Steps: Follow up WORKER documented in this encounter Plan of Treatment [...] recommended. IMPRESSION: Authenticated and Keke Gar MD [facility] US ORDERABLES Edited Result - Final * (ABNORMAL) Comprehensive metabolic panel (04/05/2025 11:30 PM EST) Sodium 140 136 - 145 meq/L 04/06/2025 12:03 AM [facility] Potassium 3.3(L) 3.5 - 5.1 meq/L 04/06/2025 12:03 AM [facility] Chloride 102 98 - 107 meq/L 04/06/2025 12:03 AM [facility] CO2 25 21 - 32 meq/L 04/06/2025 12:03 AM [facility] Calcium 9.5 8.5 - 10.1 mg/dL 04/06/2025 12:03 AM [facility] Glucose 106(H) 74 - 100 mg/dL 04/06/2025 12:03 AM [facility] BUN 12 7 - 18 mg/dL 04/06/2025 12:03 AM [facility] Creatinine 0.60 0.55 - 1.10 mg/dL 04/06/2025 12:03 AM [facility] BUN/Creatinine 20 04/06/2025 12:03 AM [facility] Albumin 4.5 3.4 - 5.0 g/dL 04/06/2025 12:03 AM [facility] Alkaline Phosphatase 91 46 - 116 U/L 04/06/2025 12:03 AM [facility] ALT 10(L) 12 - 78 U/L 04/06/2025 12:03 AM [facility] AST 14(L) 15 - 37 U/L 04/06/2025 12:03 AM [facility] Total Bilirubin 0.3 0.2 - 1.0 mg/dL 04/06/2025 12:03 AM [facility] Protein, Total 8.0 6.4 - 8.2 gm/dL 04/06/2025 12:03 AM [facility] Anion Gap 16 11 - 22 04/06/2025 12:03 AM [facility] A/G Ratio 1.3 04/06/2025 12:03 AM [facility] Globulin 3.5 g/dL 04/06/2025 12:03 AM [facility] Osmolality Calc 279.6 mOsm/kg 12:03 AM [facility] eGFR (mL/min/1.73m2) >60 >=60 mL/min/1.7 3m2 04/06/2025 12:03 AM [facility] Comment:ESTIMATED GFR IS NOT ACCURATE CREATININE CLEARANCE IN PREDICTING GLOMERULAR FILTRATION RATE. ESTIMATED GFR IS NOT APPLICABLE FOR DIALYSIS PATIENTS. Blood Venipuncture / Unknown 04/05/2025 11:30 PM EST 04/05/2025 11:41 PM EST us Keke Gar MD LAB BLOOD ORDERABLES Lainey mckay Result [facility] [address] [id number] [phone] * (ABNORMAL) CBC with Auto Diff (04/05/2025 11:30 PM EST) WBC 9.8 4.8 - 10.8 K/ L 04/05/2025 11:45 PM [facility] RBC 4.72 3.50 - 5.20 M/ L 04/05/2025 11:45 PM [facility] Hemoglobin 13.8 11.7 - 15.8 GM/DL 04/05/2025 11:45 PM [facility] Hematocrit 40.9 35.0 - 47.0 % 04/05/2025 11:45 PM [facility] MCV 87 81 - 101 fL 04/05/2025 11:45 PM [facility] MCH 29.2 27.0 - 34.0 pg 04/05/2025 11:45 PM [facility] MCHC 33.7 32.0 - 36.0 GM/DL 04/05/2025 11:45 PM [facility] RDW 13.1 11.5 - 14.5 % 04/05/2025 11:45 PM [facility] Platelets 511(H) 150 - 400 K/CU MM 04/05/2025 11:45 PM [facility] MPV 9.2(L) 9.4 - 12.4 fL 04/05/2025 11:45 PM [facility] Nucleated Red Blood Cell 0.0 0 - 0.2 % 04/05/2025 11:45 PM [facility] % Neutros 65 37 - 80 % 04/05/2025 11:45 PM [facility] % Lymphs 27 10 - 50 % 04/05/2025 11:45 PM [facility] % Monos 6 5 - 13 % 04/05/2025 11:45 PM [facility] % Eos 0.8 0.0 - 7.0 % 04/05/2025 11:45 PM [facility] % Baso 1 0 - 3 % 04/05/2025 11:45 PM [facility] NRBC Absolute <0.01 0 - 0.012 K/ul 04/05/2025 11:45 PM [facility] # Neutros 6.35 2.00 - 6.90 K/ L 04/05/2025 11:45 PM EST [facility] # Lymphs 2.68 0.60 - 3.40 K/ L 04/05/2025 11:45 PM EST [facility] # Monos 0.62 0.00 - 0.90 K/ L 04/05/2025 11:45 PM EST [facility] # Eos 0.08 0.00 - 0.70 K/ L 04/05/2025 11:45 PM EST [facility] # Baso 0.05 0.00 - 0.20 K/ L 04/05/2025 11:45 PM EST [facility] % Imm Grans 0.20 % 04/05/2025 11:45 PM EST [facility] # IG 0.02(H) 0.00 - 0.00 K/uL 04/05/2025 11:45 PM EST [facility] Blood Venipuncture / Unknown 04/05/2025 11:30 PM EST 04/05/2025 11:41 PM EST Narrative [facility] - 04/05/2025 11:45 PM EST When [...] MD LAB BLOOD ORDERABLES Lainey l Result [facility] [address] [place], [place] [id number], [facility] [phone] * (ABNORMAL) Urinalysis w/Microscopic (04/05/2025 11:04 PM EST) Color, UA Yellow 04/05/2025 11:43 PM EST [facility] Clarity, UA Clear 04/05/2025 11:43 PM [facility] Specific [place], UA 1.025 1.002 - 1.030 04/05/2025 11:43 PM [facility] pH, UA 6.0 5.0 - 9.0 04/05/2025 11:43 PM [facility] Leukocytes, UA Negative Negative 04/05/2025 11:43 PM [facility] Nitrite, UA Negative Negative 04/05/2025 11:43 PM [facility] Protein, UA 1+(A) Negative 04/05/2025 11:43 PM [facility] Glucose, UA Negative Negative 04/05/2025 11:43 PM [facility] Ketones, UA Trace(A) Negative 04/05/2025 11:43 PM [facility] Urobilinogen, UA 0.2 mg/dL Normal 04/05/2025 11:43 PM [facility] Bilirubin, UA Negative Negative 04/05/2025 11:43 PM [facility] Blood, UA 3+(A) Negative 04/05/2025 11:43 PM [facility] RBC, UA 5-10(A) None Seen, Rare /HPF 04/05/2025 11:43 PM [facility] WBC, UA 0-5 None Seen, Occasional , 0-5 /HPF 04/05/2025 11:43 PM [facility] Bacteria, UA 2+(A) None Seen 04/05/2025 11:43 PM [facility] Mucus 1+(A) Trace 04/05/2025 11:43 PM [facility] SQUAMOUS EPITHELIAL 0-5(A) None Seen, Rare /HPF 04/05/2025 11:43 PM [facility] Ca Oxalate [place], UA 2+(A) (none) 04/05/2025 11:43 PM [facility] Specimen Source Urine, Clean Catch 04/05/2025 11:43 PM [facility] Urine URINE SPECIMEN COLLECTION, CLEAN CATCH / Unknown 04/05/2025 11:04 PM EST 04/05/2025 11:04 PM EST us Keke Gar MD URINE ORDERABLES Final Re sult [facility] [address] [id number], [facility] [phone] documented in this encounter Visit Diagnoses Diagnosis Ectopic - Primary Unspecified ectopic without intrauterine documented in this encounter Care Teams Bag End Sewer Relationship Specialty Start Date End Date Sarika Moyer, DISTRICT COURT JUDGE [address] [place] [address] PCP - General Nurse Practitioner 04/05/25 documented as of this encounter
--- OUTSIDE RECORDS SUMMARY | 2025-04-10 23:39 | XMS_ITS | Encounter Summary ---
Author Organization [employer] ([place], [place], [place], [place], [place]) Address [address] [place] [address] Care Team Providers Care Needle Loom Weaver Name Role Phone Sarika Moyer MORTGAGE FUNDER Primary Care Provider + Reason for Visit * Reason Comments Abdominal Pain Pt c/o right side pa in after being diagnosed with a ectopic approximately 2 weeks ago. Pt took second dose of methotrexate yesterday and started having more severe pain without passing much tissue today. Encounter Details Date Type Department Care Team (Late st Contact Info) Description 04/10/2025 11:39 PM EST - 04/11/2025 5:09 AM EST Emergency [facility] Emergency Department [address] [place] [phone] Farzad Stiles MD [address] [place] [address] Ectopic (Primary Dx); Hypokalemia Discharge Disposition: Home or Self Care Social [...] Sign Reading Time Taken Comments Blood Pressure 120/86 04/11/2025 12:30 AM EST Pulse 94 04/11/2025 12:30 AM EST Temperature 37.2 C (98.9 F) 04/10/2025 11:46 PM EST Respiratory Rate 16 04/10/2025 11:46 PM EST Oxygen Saturation 100% 04/11/2025 12:30 AM EST Inhaled Oxygen Concentration - - Weight 39.9 kg (88 lb) 04/10/2025 11:46 PM EST Height 144.8 cm (4' 9 ) 04/10/2025 11:46 PM EST Body Mass Index 19.04 04/10/2025 11:46 PM EST documented in this encounter Discharge Instructions * Discharge Instructions* Farzad Stiles MD - 04/11/2025 5:03 AM EST Follow-up with your primary care doctor or grinder set up operator thread tool, call for appointment. Return to the emergency department for any new or worsening symptoms. ARCH CONSULTANT * Attachments The following attachments cannot be sent through Care Everywhere. * Hypokalemia (Belarusian) * Ectopic [id number] (Belarusian) documented in this encounter ED Notes * Farzad Stiles MD - 04/11/2025 12:10 AM EST HPI: Ivon Jeter is a 24 y.o. female who presents to the emergency department complaining of abdominal pain. Patient states that about 2 weeks ago she was diagnosed with a right adnexal ectopicpregnancy. She had an appropriately elevating hCG levels so received dose of methotrexate. Continueto have elevated hCG so got another dose of methotrexate yesterday. Tonight has had worsening rightlower quadrant abdominal pain. This is described as a tearing. She has had very little vaginal bleeding. She denies fevers, chills, nausea, vomiting or other complaints. REVIEW OF SYSTEMS: All other systems reviewed and are negative PAST MEDICAL HISTORY: Past Medical History: Diagnosis Date PVC (premature ventricular contraction) FAMILY HISTORY: No family history on file. SOCIAL HISTORY: Social History Socioeconomic History Marital status: Spouse name: Not on file Number of children: Not on file Years of education: Not on file Highest education level: Not on file Occupational History Not on file Tobacco Use Smoking status: Every Day Types: Cigarettes Smokeless tobacco: Never Tobacco comments: Pt vapes Substance and Sexual Activity Alcohol use: Never Drug use: Never Sexual activity: Not on file Other Topics Concern Not on file Social History Narrative Not on file Social Drivers of Health Financial Resource Strain: Not on file Food Insecurity: Not on file Transportation: Not on file Physical Activity: Not on file Social Connections: Not on file SURGICAL HISTORY: Past Surgical History: Procedure Laterality Date TONSILLECTOMY ALLERGIES: Lexapro [Escitalopram] and Robitussin Cough-Sore Throat [Acetaminophen-Dm] PHYSICAL EXAM: VITAL SIGNS: Vitals: 04/11/25 0030 BP: 120/86 Pulse: 94 Resp: Temp: SpO2: 100% CONSTITUTIONAL: Awake, well appearing, nontoxic HENT: Atraumatic, normocephalic, oral mucosa moist, airway patent. Nares patent without drainage. External ears normal. EYES: Conjunctivae clear, EOMI NECK: Trachea midline, supple CARDIOVASCULAR: Normal heart rate, Normal rhythm. PULMONARY/CHEST: Normal work of breathing. Clear to auscultation, no rhonchi, wheezes, or rales. ABDOMINAL: Nondistended, soft, nontender, no rebound or guarding. NEUROLOGIC: Nonfocal, moves all four extremities, no gross sensory or motor deficits. MUSCULOSKELETAL: No edema or tenderness SKIN: Warm, Dry, No erythema, No rash Personally reviewed past medical, surgical, personal, and family histories, any prior visits, and all available data pertinent to presentation ED COURSE / MEDICAL DECISION MAKING: Ivon Jeter is a 24 y.o. female who presents to the emergency department for evaluation of abdominal pain. She is well-appearing, nondistressed. Her vital signs are currently normal. Her exam is fairly benign. I reviewed her previous ER visit to here in , unfortunately unable to see any of her results from perisigmoidal. Will check labs and ultrasound. Disposition pending. Differential diagnosis includes the following severe or life-threatening etiologies ectopic, side effect of methotrexate, anxiety among other etiologies. Labs notable for mild hypokalemia. hCG is 133, patient reports that previous value was over 200. Ultrasound reviewed and interpreted by me, radiologist reports essentially no change compared to previous. Patient is resting comfortably. I do feel she is safe for discharge home at this time. We discussed supportive measures and return precautions. She is agreeable with plan of care. DECISION TO DISCHARGE/ADMIT: see ED care timeline FINAL IMPRESSION: 1. Ectopic 2. Hypokalemia Farzad Stiles MD 04/11/25 0508 ARCH CONSULTANT documented in this encounter Plan of Treatment Not on file documented as of this encounter Procedures Procedure Name Priority Date/Time Associated Diagnosis Comments US OB TRANSVAGINAL STAT 04/11/2025 2: 29 AM EST CBC W/ AUTO DIFF STAT 04/11/2025 1:20 AM EST HCG, QUANTITATIVE, STAT 04/11/2025 1:20 AM EST COMPREHENSIVE METABOLIC PANEL STAT 04/11/2025 1:20 AM EST documented in this encounter Results * US OB transvaginal (04/11/2025 2:29 AM EST) Anatomical Region Laterality Modality Pelvis Ultrasound 04/11/2025 4:42 AM EST Addenda Addendum by Anny Rodríguez MD on 04/11/2025 7:07 AM EST ADDENDUM REPORT ADDENDUM: Duplex ovarian US order was added to exam. No additional diagnostic information provided in this addendum. Impressions 04/11/2025 4:42 AM EST Authenticated and Narrative 04/11/2025 4:42 AM EST FINAL REPORT TECHNIQUE: null CLINICAL HISTORY: ABDOMINAL PAIN Pt c/o right side pain after being diagnosed with a ectopic approximately 2 weeks ago. Pt took second dose of methotrexate yesterday and started having more severe pain without passing much tissue today. COMPARISON: null FINDINGS: US obstetric transvaginal US duplex ovaries complete. Technique: Endovaginal images obtained for more accurate delineation of potential gestational products as well as ovarian details. Duplex doppler imaging with spectral waveform analysis performed of the ovaries. Comparison: US/OT - US OB TRANSVAGINAL - 04/06/25 00:02 EST Gestation: There are no visible products of an intrauterine gestation. There is no gestational sac, yolk sac, or pole. There are no appreciable heart tones. Maternal anatomy: Uterus: 5.9 x 4.7 x 3.1 cm. Normal endomstrial thickness at 8 mm. Ovaries: Right: 3.0 x 2.6 x 3.3 cm. Normal vascular flow and waveforms. Left: 4.6 x 2.5 x 4.1 cm. Normal vascular flow and waveforms. Adnexal regions: Isoechoic right adnexal mass now measures 2.6 x 1.6 x 2.5 cm vs 2.8 x 1.7 x 1.3 cm on prior. Small volume free fluid in the cul de sac. Procedure Note Anny Rodríguez MD - 04/11/2025 FINAL REPORT TECHNIQUE: null CLINICAL HISTORY: ABDOMINAL PAIN Pt c/o right side pain after being diagnosed with a ectopic approximately 2 weeks ago. Pt took second dose of methotrexate yesterday and started having more severe pain without passing much tissue today. COMPARISON: null FINDINGS: US obstetric transvaginal US duplex ovaries complete. Technique: Endovaginal images obtained for more accurate delineation of potential gestational products as well as ovarian details. Duplex doppler imaging with spectral waveform analysis performed of the ovaries. Comparison: US/OT - US OB TRANSVAGINAL - 04/06/25 00:02 EST Gestation: There are no visible products of an intrauterine gestation. There is no gestational sac, yolk sac, or pole. There are no appreciable heart tones. Maternal anatomy: Uterus: 5.9 x 4.7 x 3.1 cm. Normal endomstrial thickness at 8 mm. Ovaries: Right: 3.0 x 2.6 x 3.3 cm. Normal vascular flow and waveforms. Left: 4.6 x 2.5 x 4.1 cm. Normal vascular flow and waveforms. Adnexal regions: Isoechoic right adnexal mass now measures 2.6 x 1.6 x 2.5 cm vs 2.8 x 1.7 x 1.3 cm on prior. Small volume free fluid in the cul de sac. IMPRESSION: Authenticated and Farzad Stiles MD [facility] ORDERABLES Edited Result - Final * hCG, quantitative, (04/11/2025 1:20 AM EST) HCG Serum Quant 133 mIU/mL 1:58 AM EST [facility] Comment: Results of the HCG quant test should always be interpreted in conjunction with the patient's medical history, clinical presentation, and other findings. Reference range for adult male, age 19-67: </=1 Reference range for non- female, age 18-62: 1-3 Reference range for female: Gestational Age 1.4 days-1 week 5-50 1-2 weeks 50-500 2-3 weeks 100-5,000 3-4 weeks 500-10,000 4-5 weeks 1,000-50,000 5-6 weeks 10,000-100,000 6-8 weeks 15,000-200,000 2-3 months 10,000-100,000 Blood Venipuncture / Unknown 04/11/2025 1:20 AM EST 04/11/2025 1:23 AM EST us Farzad Stiles MD LAB BLOOD ORDERABLES Final Resu lt [facility] [address] [place] [address] * (ABNORMAL) Comprehensive metabolic panel (04/11/2025 1:20 AM EST) Sodium 142 136 - 145 meq/L 04/11/2025 1:58 AM EST [facility] Potassium 3.1(L) 3.5 - 5.1 meq/L 04/11/2025 1:58 AM EST [facility] Chloride 105 98 - 107 meq/L 04/11/2025 1:58 AM EST [facility] CO2 28 21 - 32 meq/L 04/11/2025 1:58 AM EST [facility] Calcium 9.0 8.5 - 10.1 mg/dL 04/11/2025 1:58 AM EST [facility] Glucose 105(H) 74 - 100 mg/dL 04/11/2025 1:58 AM EST [facility] BUN 11 7 - 18 mg/dL 04/11/2025 1:58 AM EST [facility] Creatinine 0.61 0.55 - 1.10 mg/dL 04/11/2025 1:58 AM [facility] BUN/Creatinine 18 04/11/2025 1:58 AM [facility] Albumin 3.9 3.4 - 5.0 g/dL 04/11/2025 1:58 AM [facility] Alkaline Phosphatase 78 46 - 116 U/L 04/11/2025 1:58 AM [facility] ALT 12 12 - 78 U/L 04/11/2025 1:58 AM [facility] AST 11(L) 15 - 37 U/L 04/11/2025 1:58 AM [facility] Total Bilirubin 0.4 0.2 - 1.0 mg/dL 04/11/2025 1:58 AM [facility] Protein, Total 7.1 6.4 - 8.2 gm/dL 04/11/2025 1:58 AM [facility] Anion Gap 12 11 - 22 04/11/2025 1:58 AM [facility] A/G Ratio 1.2 04/11/2025 1:58 AM [facility] Globulin 3.2 g/dL 04/11/2025 1:58 AM [facility] Osmolality Calc 282.9 mOsm/kg 1:58 AM [facility] eGFR (mL/min/1.73m2) >60 >=60 mL/min/1.7 3m2 04/11/2025 1:58 AM [facility] Comment:ESTIMATED GFR IS NOT ACCURATE CREATININE CLEARANCE IN PREDICTING GLOMERULAR FILTRATION RATE. ESTIMATED GFR IS NOT APPLICABLE FOR DIALYSIS PATIENTS. Blood Venipuncture / Unknown 04/11/2025 1:20 AM EST 04/11/2025 1:23 AM EST us Farzad Stiles MD LAB BLOOD ORDERABLES Final Resu lt [facility] [address] [place] [address], [facility] [phone] * (ABNORMAL) CBC with Auto Diff (04/11/2025 1:20 AM [facility]) WBC 7.3 4.8 - 10.8 K/ L 04/11/2025 1:27 AM [facility] RBC 4.32 3.50 - 5.20 M/ L 04/11/2025 1:27 AM [facility] Hemoglobin 12.7 11.7 - 15.8 GM/DL 04/11/2025 1:27 AM [facility] Hematocrit 37.8 35.0 - 47.0 % 04/11/2025 1:27 AM [facility] MCV 88 81 - 101 fL 04/11/2025 1:27 AM [facility] MCH 29.4 27.0 - 34.0 pg 04/11/2025 1:27 AM [facility] MCHC 33.6 32.0 - 36.0 GM/DL 04/11/2025 1:27 AM [facility] RDW 13.2 11.5 - 14.5 % 04/11/2025 1:27 AM [facility] Platelets 432(H) 150 - 400 K/CU MM 04/11/2025 1:27 AM [facility] MPV 9.1(L) 9.4 - 12.4 fL 04/11/2025 1:27 AM [facility] Nucleated Red Blood Cell 0.0 0 - 0.2 % 04/11/2025 1:27 AM [facility] % Neutros 55 37 - 80 % 04/11/2025 1:27 AM [facility] % Lymphs 34 10 - 50 % 04/11/2025 1:27 AM [facility] % Monos 9 5 - 13 % 04/11/2025 1:27 AM [facility] % Eos 1.5 0.0 - 7.0 % 04/11/2025 1:27 AM [facility] % Baso 1 0 - 3 % 04/11/2025 1:27 AM [facility] NRBC Absolute <0.01 0 - 0.012 K/ul 04/11/2025 1:27 AM EST [facility] # Neutros 4.04 2.00 - 6.90 K/ L 04/11/2025 1:27 AM EST [facility] # Lymphs 2.51 0.60 - 3.40 K/ L 04/11/2025 1:27 AM EST [facility] # Monos 0.62 0.00 - 0.90 K/ L 04/11/2025 1:27 AM EST [facility] # Eos 0.11 0.00 - 0.70 K/ L 04/11/2025 1:27 AM EST [facility] # Baso 0.04 0.00 - 0.20 K/ L 04/11/2025 1:27 AM EST [facility] % Imm Grans 0.10 % 04/11/2025 1:27 AM EST [facility] # IG 0.01(H) 0.00 - 0.00 K/uL 04/11/2025 1:27 AM EST [facility] Blood Venipuncture / Unknown 04/11/2025 1:20 AM EST 04/11/2025 1:23 AM EST Narrative [facility] - 04/11/2025 1:27 AM EST When CBC w/ Auto Diff is ordered the lab will add a Manual Differential as a quality check at no additional charge if: Lymphocytes greater than seventy five percent with normal or increased WBC Monocytes greater than Fifteen percent Basophil greater than four percent Bands >10% or several immature myeloids are seen on scan Blast? Flag noted Atypical Lymph flag noted us Farzad Stiles MD LAB BLOOD ORDERABLES Final Resu lt [facility] [address] [place], [place] [address] [phone] documented in this encounter Visit Diagnoses Diagnosis Ectopic - Primary Unspecified ectopic without intrauterine Hypokalemia Hypopotassemia documented in this encounter Administered Medications Inactive Administered Medications - up to 3 most recent administrations Medication Order MAR Action Action Date Dose Rate Site acetaminophen (TYLENOL) tablet 650 mg 650 mg Once, oral, On 04/11/25 at 0415, For 1 dose, Recommended maximum dose of acetaminophen is 4000 mg from all sources in 24 hours Given 04/11/2025 4:19 AM EST 650 mg Potassium bicarbonate (EFFER-K) disintegrating tablet 50 mEq Once, oral, On 04/11/25 at 0215, For 1 dose, Do NOT crush or chew the effervescent tablet. Preparation: Dissolve 1 effervescent tablet in 3-4 ounces of cold water or juice and drink slowly. If giving through tube feeding, please flush feeding tube before and after this medication administration. Given 04/11/2025 2:52 AM EST 50 mEq documented in this encounter Active and Recently Administered Medications Times are shown in EST. Scheduled Medication Order 04/09/2025 04/10/2025 04/11/2025 acetaminophen (TYLENOL) tablet 650 mg (COMPLETED) 650 mg Once, oral, On 04/11/25 at 0415, For 1 dose, Recommended maximum dose of acetaminophen is 4000 mg from all sources in 24 hours 0419 (Given - Provid er: Andie Umana) Potassium bicarbonate (EFFER-K) disintegrating tablet (COMPLETED) 50 mEq Once, oral, On 04/11/25 at 0215, For 1 dose, Do NOT crush or chew the effervescent tablet. Preparation: Dissolve 1 effervescent tablet in 3-4 ounces of cold water or juice and drink slowly. If giving through tube feeding, please flush feeding tube before and after this medication administration. 0252 (Given - Provid er: Andie Umana) sodium chloride 0.9% (NS) bolus 1,000 mL Once, intravenous, Administer over 60 Minutes, On 04/11/25 at 0010, For 1 dose 0108 (Not Given - Pr ovider: Andie Umana - Reason: Other (with Comment) - Comment: unable to obtain IV access) documented in this encounter Care Teams Needle Loom Weaver Relationship Specialty Start Date End Date Sarika Moyer, MORTGAGE FUNDER [address] [place] [address] PCP - General Nurse Practitioner 04/05/25 documented as of this encounter
--- OUTSIDE RECORDS SUMMARY | 2025-04-12 09:13 | XMS_ITS | Encounter Summary ---
Author Organization Healthcare Address [address] [place] [address] Care Team Providers Care Director [employer] Name Role Phone Sarika Moyer MOLD STAMPER AND REPAIRER Primary Care Provider + Encounter Details Date [...] filedocumented in this encounter Care Teams Director [employer] Relationship Specialty Start Date End Date Sarika Moyer, MOLD STAMPER AND REPAIRER [address] [place] [place] [id number] PCP - General 10/14/20 documented as of this encounter
--- OUTSIDE RECORDS SUMMARY | 2025-04-12 09:14 | XMS_ITS | Clinical Summary ---
Author Organization Healthcare Address [address] [id number] Care Team Providers Care Ruby Engineer Name Role Phone Sarika Moyer PRINT MACHINE OPERATOR Primary Care Provider + Allergies Active Allergy Reactions Criticality Noted Date Comments Escitalopram Anaphylaxis High 03/27/2025 Robitussin Dm Max Day-Night Anxiety Low 03/27/20 Medications No known medications Active Problems Comments Yes No known active problems Encounters Date Type Department Care Team Description 03/27/2025 8:35 PM EDT - 03/28/2025 1:22 AM EDT Emergency [facility] Emergency Department [address] [place] [address] Rose Cortes MD of unknown anatomic location (Primary Dx) Discharge Disposition: Home or Self Care 03/27/2025 Travel 03/17/2025 Telephone Obstetrics & Gynecology [address] [place] [phone] Chiki Cardenas MD from Last 3 [...] Date Last Done Comments [facility]-Depression Screening 2002 [facility]-/Child/Adol SDOH Screenings 2002 [facility]- SDOH Screenings 2020 [facility]-Adult SDOH Screenings 2020 [facility]-Pap Smear 2023 [facility]-DTaP,Tdap,and Td Vaccines (7 - Td or Tdap) 10/19/2024 10/19/2014, 05/21/2006, 08/26/2003, Additional history exists [id number] Vaccine (1 - season) 2025 [facility]-Influenza Vaccine [...] Reactive Non Reactive 03/27/2025 9:26 PM EDT [facility] Comment:Screening for HIV 1 & 2 antibodies, and P24 antigen is NONREACTIVE. No confirmatory testing is required. Blood Venous blood specimen / Unknown Venipuncture / Unknown 03/27/2025 8:31 PM EDT 03/27/2025 8:44 PM EDT Rose Cortes MD LAB BLOOD ORDERABLES Final Resu lt [facility] [address] [place] [address] * Hepatitis C Antibody - ED (03/27/2025 8:31 PM EDT) Hepatitis C Antibody Negative Negative 03/27/2025 9:26 PM EDT [facility] Blood Venous blood specimen / Unknown Venipuncture / Unknown 03/27/2025 8:31 PM EDT 03/27/2025 8:44 PM EDT us Rose Cortes MD LAB BLOOD ORDERABLES Final Resu lt [facility] [address] [place] [address] * (ABNORMAL) CBC w/diff (03/27/2025 8:31 PM EDT) Pathologist [facility] WBC Count 11.76(H) 3.70 - 10.30 10*3/uL LAB HEMATOLOGY METHOD 03/27/2025 8:44 PM EDT [facility] RBC Count 4.82 3.90 - 5.20 10*6/uL LAB HEMATOLOGY METHOD 03/27/2025 8:44 PM EDT [facility] HGB 14.2 11.2 - 15.7 g/dL LAB HEMATOLOGY METHOD 03/27/2025 8:44 PM EDT [facility] HCT 39.9 34.0 - 45.0 % LAB HEMATOLOGY METHOD 03/27/2025 8:44 PM EDT [facility] Platelet Count 523(H) 155 - 369 10*3/uL LAB HEMATOLOGY METHOD 03/27/2025 8:44 PM EDT [facility] MCV 83 79 - 98 fL LAB HEMATOLOGY METHOD 03/27/2025 8:44 PM EDT [facility] MCH 29.5 26.0 - 32.0 pg LAB HEMATOLOGY METHOD 03/27/2025 8:44 PM EDT [facility] MCHC 35.6(H) 30.7 - 35.5 g/dL LAB HEMATOLOGY METHOD 03/27/2025 8:44 PM EDT [facility] RDW 12.2 11.5 - 14.5 % LAB HEMATOLOGY METHOD 03/27/2025 8:44 PM EDT [facility] MPV 9.3 8.8 - 12.5 fL LAB HEMATOLOGY METHOD 03/27/2025 8:44 PM EDT [facility] nRBC 0.0 <=0.0 per 100 WBCs LAB HEMATOLOGY METHOD 03/27/2025 8:44 PM EDT [facility] Differential Type Automated LAB HEMATOLOGY METHOD 03/27/2025 8:44 PM EDT [facility] Neutrophils % 71 % LAB HEMATOLOGY METHOD 03/27/2025 8:44 PM EDT [facility] Lymphocytes % 25 % LAB HEMATOLOGY METHOD 03/27/2025 8:44 PM EDT [facility] Monocytes % 4 % LAB HEMATOLOGY METHOD 03/27/2025 8:44 PM EDT [facility] Eosinophils % 0 % LAB HEMATOLOGY METHOD 03/27/2025 8:44 PM EDT [facility] Basophils % 0 % LAB HEMATOLOGY METHOD 03/27/2025 8:44 PM EDT [facility] Immature Granulocytes % 0 % LAB HEMATOLOGY METHOD 03/27/2025 8:44 PM EDT [facility] Neutrophils Absolute 8.17(H) 1.60 - 6.10 10*3/uL LAB HEMATOLOGY METHOD 03/27/2025 8:44 PM EDT [facility] Lymphocytes Absolute 2.96 1.20 - 3.90 10*3/uL LAB HEMATOLOGY METHOD 03/27/2025 8:44 PM EDT [facility] Monocytes Absolute 0.52 0.30 - 0.90 10*3/uL LAB HEMATOLOGY METHOD 03/27/2025 8:44 PM EDT [facility] Eosinophils Absolute 0.03 0.00 - 0.50 10*3/uL LAB HEMATOLOGY METHOD 03/27/2025 8:44 PM EDT [facility] Basophils Absolute 0.05 0.00 - 0.10 10*3/uL LAB HEMATOLOGY METHOD 03/27/2025 8:44 PM EDT [facility] Immature Granulocytes Absolute 0.03 0.00 - 0.06 10*3/uL LAB HEMATOLOGY METHOD 03/27/2025 8:44 PM EDT [facility] Blood Venous blood specimen / Unknown Venipuncture / Unknown 03/27/2025 8:31 PM EDT 03/27/2025 8:41 PM EDT Narrative [facility] - 03/27/2025 8:44 PM EDT Therapeutic decision making should be based on absolute values, rather than percentages. Rose Cortes MD LAB BLOOD ORDERABLES Final Resu lt Performing Organization Address City/[facility]/ZIP Co de Phone Number [facility] [address] [place] [address] * Type and screen (03/27/2025 8:31 PM [...] TEST ORDERABLES Final Result Performing Organization Address [facility] de Phone Number BLOOD BANK [address] [place] [address] * (ABNORMAL) hCG, quantitative, (03/27/2025 8:31 PM EDT) hCG, Total Beta 626.2(H) <5 mIU/mL 03/27/2025 9:22 PM EDT [facility] Blood Venous blood specimen / Unknown Venipuncture / Unknown 03/27/2025 8:31 PM EDT 03/27/2025 8:41 PM EDT Narrative [facility] - 03/27/2025 9:22 PM EDT [...] MD LAB BLOOD ORDERABLES Final Resu lt [facility] [address] [place] [address] * (ABNORMAL) CMP (03/27/2025 8:31 PM EDT) Glucose, Plasma 96 74 - 99 mg/dL 03/27/2025 9:22 PM EDT [facility] BUN, Plasma 11 7 - 21 mg/dL 03/27/2025 9:22 PM EDT [facility] Creatinine, Plasma 0.48(L) 0.60 - 1.10 mg/dL 03/27/2025 9:22 PM EDT [facility] BUN/Creatinine Ratio 23 03/27/2025 9:22 PM EDT [facility] Sodium, Plasma 136 136 - 145 mmol/L 03/27/2025 9:22 PM EDT [facility] Potassium, Plasma 3.1(L) 3.6 - 4.9 mmol/L 03/27/2025 9:22 PM EDT [facility] Chloride, Plasma 100 97 - 107 mmol/L 03/27/2025 9:22 PM EDT [facility] CO2, Plasma 20(L) 22 - 29 mmol/L 03/27/2025 9:22 PM EDT [facility] Anion Gap 16 6 - 16 mmol/L 03/27/2025 9:22 PM EDT [facility] Total Calcium, Plasma 9.8 8.9 - 10.2 mg/dL 03/27/2025 9:22 PM EDT [facility] Total Protein 7.7 6.3 - 7.9 g/dL 03/27/2025 9:22 PM EDT [facility] Albumin, Plasma 4.9 3.5 - 5.2 g/dL 03/27/2025 9:22 PM EDT [facility] AST, Plasma 17 10 - 35 U/L 03/27/2025 9:22 PM EDT [facility] ALT, Plasma 8(L) 10 - 35 U/L 03/27/2025 9:22 PM EDT [facility] Alkaline Phosphatase, Plasma 102 35 - 104 U/L 03/27/2025 9:22 PM EDT [facility] Total Bilirubin, Plasma 1.3(H) 0.2 - 1.1 mg/dL 03/27/2025 9:22 PM EDT [facility] eGFRcr 137.5 mL/min/1.7 3m*2 03/27/2025 9:22 PM EDT [facility] Comment:Reported eGFRcr in m L/min/1.73m2 is based the CKD-EPI 2020 equation that does not use a race coefficient. Blood Venous blood specimen / Unknown Venipuncture / Unknown 03/27/2025 8:31 PM EDT 03/27/2025 8:41 PM EDT us Rose Cortes MD LAB BLOOD ORDERABLES Final Resu lt [facility] [address] [place] [address] from Last 3 Months Insurance [facility] MEDICAID Care Teams Ruby Engineer Relationship Specialty Start Date End Date Sarika Moyer APRN [address] [place] [address] PCP - General 10/14/20
--- OUTSIDE RECORDS SUMMARY | 2025-04-12 09:14 | XMS_ITS | Encounter Summary ---
Author Organization [employer] ([place], [place], [place], [place], [place]) Address [address] [place] [address] Care Team Providers Care Trash Collector Name Role Phone Sarika Moyer WATER TENDER Primary Care Provider + Encounter Details Date [...] on filedocumented in this encounter Care Teams Trash Collector Relationship Specialty Start Date End Date Sarika Moyer APRN [address] [place] [address] PCP - General Nurse Practitioner 04/05/25 documented as of this encounter
--- OUTSIDE RECORDS SUMMARY | 2025-04-12 09:14 | XMS_ITS | Encounter Summary ---
Author Organization [employer] ([place], [place], [place], [place], [place]) Address [address] [place] [address] Care Team Providers Care Psychiatry Adult Physician Name Role Phone Sarika Moyer FIELD CROP TECHNICAL OFFICER Primary Care Provider + Encounter Details Date [...] on filedocumented in this encounter Care Teams Psychiatry Adult Physician Relationship Specialty Start Date End Date Sarika Moyer APRN [address] [place] [address] PCP - General Nurse Practitioner 04/05/25 documented as of this encounter
--- OUTSIDE RECORDS SUMMARY | 2025-04-12 09:14 | XMS_ITS | Referral Summary ---
Author Organization [employer] ([place], [place], [place], [place], [place]) Address [address] [place] [address] Care Team Providers Care Livestock Farmers Name Role Phone Sarika Moyer CUSTOMER SERVICE ADVISOR Primary Care Provider + Encounters Date Type Department Care Team Description 04/10/2025 11:39 PM EST - 04/11/2025 5:09 AM EST Emergency [facility] [address] [place] [address] Farzad Stiles MD Ectopic (Primary Dx); Hypokalemia Discharge Disposition: Home or Self Care 04/10/2025 Travel 04/05/2025 10:43 PM EST - 04/06/2025 2:31 AM EST Emergency [facility] Emergency Department [address] [place] [address] Keke Gar MD Ectopic (Primary [...] sac. IMPRESSION: Authenticated and Farzad Stiles MD [facility] ORDERABLES Edited Result - Final * (ABNORMAL) CBC with Auto Diff (04/11/2025 1:20 AM EST) Only the most recent of2 resultswithin the time period is included. WBC 7.3 4.8 - 10.8 K/ L 04/11/2025 1:27 AM [facility] RBC 4.32 3.50 - 5.20 M/ L 04/11/2025 1:27 AM [facility] Hemoglobin 12.7 11.7 - 15.8 GM/DL 04/11/2025 1:27 AM [facility] Hematocrit 37.8 35.0 - 47.0 % 04/11/2025 1:27 AM [facility] MCV 88 81 - 101 fL 04/11/2025 1:27 AM [facility] MCH 29.4 27.0 - 34.0 pg 04/11/2025 1:27 AM [facility] MCHC 33.6 32.0 - 36.0 GM/DL 04/11/2025 1:27 AM [facility] RDW 13.2 11.5 - 14.5 % 04/11/2025 1:27 AM [facility] Platelets 432(H) 150 - 400 K/CU MM 04/11/2025 1:27 AM [facility] MPV 9.1(L) 9.4 - 12.4 fL 04/11/2025 1:27 AM [facility] Nucleated Red Blood Cell 0.0 0 - 0.2 % 04/11/2025 1:27 AM [facility] % Neutros 55 37 - 80 % 04/11/2025 1:27 AM [facility] % Lymphs 34 10 - 50 % 04/11/2025 1:27 AM [facility] % Monos 9 5 - 13 % 04/11/2025 1:27 AM [facility] % Eos 1.5 0.0 - 7.0 % 04/11/2025 1:27 AM [facility] % Baso 1 0 - 3 % 04/11/2025 1:27 AM [facility] NRBC Absolute <0.01 0 - 0.012 K/ul 04/11/2025 1:27 AM [facility] # Neutros 4.04 2.00 - 6.90 K/ L 04/11/2025 1:27 AM [facility] # Lymphs 2.51 0.60 - 3.40 K/ L 04/11/2025 1:27 AM [facility] # Monos 0.62 0.00 - 0.90 K/ L 04/11/2025 1:27 AM [facility] # Eos 0.11 0.00 - 0.70 K/ L 04/11/2025 1:27 AM [facility] # Baso 0.04 0.00 - 0.20 K/ L 04/11/2025 1:27 AM [facility] % Imm Grans 0.10 % 04/11/2025 1:27 AM [facility] # IG 0.01(H) 0.00 - 0.00 K/uL 04/11/2025 1:27 AM [facility] Blood Venipuncture / Unknown 04/11/2025 1:20 AM EST 04/11/2025 1:23 AM EST Narrative [facility] - 04/11/2025 1:27 AM EST [...] ORDERABLES Final Resu lt Performing Organization Address City/[facility] Co de Phone Number [facility] [address] [phone] * hCG, quantitative, (04/11/2025 1:20 AM EST) HCG Serum Quant 133 mIU/mL 1:58 AM EST [facility] Comment: Results of the HCG [...] ORDERABLES Final Resu lt Performing Organization Address [facility]/ZIP Co de Phone Number [facility] [address] [phone] * (ABNORMAL) Comprehensive metabolic panel (04/11/2025 1:20 AM EST) Only the most recent of2 resultswithin the time period is included. Sodium 142 136 - 145 meq/L 04/11/2025 1:58 AM [facility] Potassium 3.1(L) 3.5 - 5.1 meq/L 04/11/2025 1:58 AM [facility] Chloride 105 98 - 107 meq/L 04/11/2025 1:58 AM [facility] CO2 28 21 - 32 meq/L 04/11/2025 1:58 AM [facility] Calcium 9.0 8.5 - 10.1 mg/dL 04/11/2025 1:58 AM [facility] Glucose 105(H) 74 - 100 mg/dL 04/11/2025 1:58 AM [facility] BUN 11 7 - 18 mg/dL 04/11/2025 1:58 AM [facility] Creatinine 0.61 0.55 - 1.10 mg/dL 04/11/2025 1:58 AM [facility] BUN/Creatinine 18 04/11/2025 1:58 AM [facility] Albumin 3.9 3.4 - 5.0 g/dL 04/11/2025 1:58 AM [facility] Alkaline Phosphatase 78 46 - 116 U/L 04/11/2025 1:58 AM [facility] ALT 12 12 - 78 U/L 04/11/2025 1:58 AM [facility] AST 11(L) 15 - 37 U/L 04/11/2025 1:58 AM [facility] Total Bilirubin 0.4 0.2 - 1.0 mg/dL 04/11/2025 1:58 AM [facility] Protein, Total 7.1 6.4 - 8.2 gm/dL 04/11/2025 1:58 AM [facility] Anion Gap 12 11 - 22 04/11/2025 1:58 AM [facility] A/G Ratio 1.2 04/11/2025 1:58 AM [facility] Globulin 3.2 g/dL 04/11/2025 1:58 AM EST [facility] Osmolality Calc 282.9 mOsm/kg 1:58 AM [facility] eGFR (mL/min/1.73m2) >60 >=60 mL/min/1.7 3m2 04/11/2025 1:58 AM EST [facility] Comment:ESTIMATED GFR IS NOT ACCURATE CREATININE CLEARANCE IN PREDICTING GLOMERULAR FILTRATION RATE. ESTIMATED GFR IS NOT APPLICABLE FOR DIALYSIS PATIENTS. Blood Venipuncture / Unknown 04/11/2025 1:20 AM EST 04/11/2025 1:23 AM EST us Farzad Stiles MD LAB BLOOD ORDERABLES Final Resu lt [facility] [address] [place] [address], [facility] [phone] * (ABNORMAL) Urinalysis w/Microscopic (04/05/2025 11:04 PM EST) Color, UA Yellow 04/05/2025 11:43 PM [facility] Clarity, UA Clear 04/05/2025 11:43 PM [facility] Specific [place], UA 1.025 1.002 - 1.030 04/05/2025 11:43 [...] 0.2 mg/dL Normal 04/05/2025 11:43 PM EST [facility] Bilirubin, UA Negative Negative 04/05/2025 11:43 PM EST [facility] Blood, UA 3+(A) Negative 04/05/2025 11:43 PM EST [facility] RBC, UA 5-10(A) None Seen, Rare /HPF 04/05/2025 11:43 PM EST [facility] WBC, UA 0-5 None Seen, Occasional , 0-5 /HPF 04/05/2025 11:43 PM EST [facility] Bacteria, UA 2+(A) None Seen 04/05/2025 11:43 PM EST [facility] Mucus 1+(A) Trace 04/05/2025 11:43 PM EST [facility] SQUAMOUS EPITHELIAL 0-5(A) None Seen, Rare /HPF 04/05/2025 11:43 PM EST [facility] Ca Oxalate [place], UA 2+(A) (none) 04/05/2025 11:43 PM EST [facility] Specimen Source Urine, Clean Catch 04/05/2025 11:43 PM EST [facility] Urine URINE SPECIMEN COLLECTION, CLEAN CATCH / Unknown 04/05/2025 11:04 PM EST 04/05/2025 11:04 PM EST us Keke Gar MD URINE ORDERABLES Final Re sult [facility] [address] [phone] from Last 3 Months Insurance [facility] [employer] [facility] [place] Care Teams Livestock Farmers Relationship Specialty Start Date End Date Sarika Moyer, CUSTOMER SERVICE ADVISOR [address] [place], [place] [phone] PCP - General Nurse Practitioner 04/05/25
--- OUTSIDE RECORDS SUMMARY | 2025-04-12 09:14 | XMS_ITS | Encounter Summary ---
Author Organization Healthcare Address [address] [place] [address] Care Team Providers Care Insurance Defense Attorney Name Role Phone Sarika Moyer LAYOUT DESIGNER Primary Care Provider + Encounter Details Date Type Department Care Team ([facility] st Contact Info) Description 03/17/2025 Telephone Obstetrics & Gynecology [address] [place] [address] Chiki Cardenas MD [address] [place] [address] Social History Tobacco Use Types [...] on filedocumented in this encounter Care Teams Insurance Defense Attorney Relationship Specialty Start Date End Date Sarika Moyer APRN [address] [place] [address] PCP - General 10/14/20 documented as of this encounter
--- OUTSIDE RECORDS SUMMARY | 2025-04-12 09:14 | XMS_ITS | Clinical Summary ---
Author Organization [employer] ([place], [place], [place], [place], [place]) Address [address] [place] [address] Care Team Providers Care Quality Assurance Assistant Name Role Phone Sarika Moyer IRON MELTER Primary Care Provider + Allergies Active Allergy Reactions Criticality Noted Date Comments Escitalopram 04/05/2025 Acetaminophen-Dm 04/05/2025 Medications No known medications Encounters Date Type Department Care Team Description 04/10/2025 11:39 PM EST - 04/11/2025 5:09 AM EST Emergency [facility] Emergency Department [address] [place] [phone] Farzad Stiles MD Ectopic (Primary Dx); Hypokalemia Discharge Disposition: Home or Self Care 04/10/2025 Travel 04/05/2025 10:43 PM EST - 04/06/2025 2:31 AM EST Emergency [facility] Emergency Department [address] [place] [phone] Keke Gar MD Ectopic (Primary Dx) Discharge [...] IMPRESSION: Authenticated and Farzad Stiles MD [facility] ORDERABLES Edited Result - Final * (ABNORMAL) CBC with Auto Diff (04/11/2025 1:20 AM EST) Only the most recent of2 resultswithin the time period is included. WBC 7.3 4.8 - 10.8 K/ L 04/11/2025 1:27 AM EST [facility] RBC 4.32 3.50 - 5.20 M/ L 04/11/2025 1:27 AM EST [facility] Hemoglobin 12.7 11.7 - 15.8 GM/DL 04/11/2025 1:27 AM [facility] Hematocrit 37.8 35.0 - 47.0 % 04/11/2025 1:27 AM [facility] MCV 88 81 - 101 fL 04/11/2025 1:27 AM [facility] MCH 29.4 27.0 - 34.0 pg 04/11/2025 1:27 AM [facility] MCHC 33.6 32.0 - 36.0 GM/DL 04/11/2025 1:27 AM [facility] RDW 13.2 11.5 - 14.5 % 04/11/2025 1:27 AM [facility] Platelets 432(H) 150 - 400 K/CU MM 04/11/2025 1:27 AM [facility] MPV 9.1(L) 9.4 - 12.4 fL 04/11/2025 1:27 AM [facility] Nucleated Red Blood Cell 0.0 0 - 0.2 % 04/11/2025 1:27 AM [facility] % Neutros 55 37 - 80 % 04/11/2025 1:27 AM [facility] % Lymphs 34 10 - 50 % 04/11/2025 1:27 AM [facility] % Monos 9 5 - 13 % 04/11/2025 1:27 AM [facility] % Eos 1.5 0.0 - 7.0 % 04/11/2025 1:27 AM [facility] % Baso 1 0 - 3 % 04/11/2025 1:27 AM [facility] NRBC Absolute <0.01 0 - 0.012 K/ul 04/11/2025 1:27 AM [facility] # Neutros 4.04 2.00 - 6.90 K/ L 04/11/2025 1:27 AM [facility] # Lymphs 2.51 0.60 - 3.40 K/ L 04/11/2025 1:27 AM EST [facility] # Monos 0.62 0.00 - 0.90 K/ L 04/11/2025 1:27 AM EST [facility] # Eos 0.11 0.00 - 0.70 K/ L 04/11/2025 1:27 AM EST [facility] # Baso 0.04 0.00 - 0.20 K/ L 04/11/2025 1:27 AM EST [facility] % Imm Grans 0.10 % 04/11/2025 1:27 AM EST [facility] # IG 0.01(H) 0.00 - 0.00 K/uL 04/11/2025 1:27 AM EST [facility] Blood Venipuncture / Unknown 04/11/2025 1:20 AM EST 04/11/2025 1:23 AM EST Narrative [facility] - 04/11/2025 1:27 AM [...] MD LAB BLOOD ORDERABLES Final Resu lt [facility] [address] [place] [address] * hCG, quantitative, (04/11/2025 1:20 AM EST) HCG Serum Quant 133 mIU/mL 1:58 AM EST [facility] Comment: Results of the [...] MD LAB BLOOD ORDERABLES Final Resu lt [facility] [address] [place] [address] * (ABNORMAL) Comprehensive metabolic panel (04/11/2025 1:20 AM EST) Only the most recent of2 resultswithin the time period is included. Sodium 142 136 - 145 meq/L 04/11/2025 1:58 AM [facility] Potassium 3.1(L) 3.5 - 5.1 meq/L 04/11/2025 1:58 AM EST [facility] Chloride 105 98 - 107 meq/L 04/11/2025 1:58 AM EST [facility] CO2 28 21 - 32 meq/L 04/11/2025 1:58 AM EST [facility] Calcium 9.0 8.5 - 10.1 mg/dL 04/11/2025 1:58 AM EST [facility] Glucose 105(H) 74 - 100 mg/dL 04/11/2025 1:58 AM EST [facility] BUN 11 7 - 18 mg/dL 04/11/2025 1:58 AM EST [facility] Creatinine 0.61 0.55 - 1.10 mg/dL 04/11/2025 1:58 AM [facility] BUN/Creatinine 18 04/11/2025 1:58 AM [facility] Albumin 3.9 3.4 - 5.0 g/dL 04/11/2025 1:58 AM [facility] Alkaline Phosphatase 78 46 - 116 U/L 04/11/2025 1:58 AM [facility] ALT 12 12 - 78 U/L 04/11/2025 1:58 AM [facility] AST 11(L) 15 - 37 U/L 04/11/2025 1:58 AM [facility] Total Bilirubin 0.4 0.2 - 1.0 mg/dL 04/11/2025 1:58 AM [facility] Protein, Total 7.1 6.4 - 8.2 gm/dL 04/11/2025 1:58 AM [facility] Anion Gap 12 11 - 04/11/2025 1:58 AM [facility] A/G Ratio 1.2 04/11/2025 1:58 AM [facility] Globulin 3.2 g/dL 04/11/2025 1:58 AM [facility] Osmolality Calc 282.9 mOsm/kg 1:58 AM [facility] eGFR (mL/min/1.73m2) >60 >=60 mL/min/1.7 3m2 04/11/2025 1:58 AM [facility] Comment:ESTIMATED GFR IS NOT ACCURATE CREATININE CLEARANCE IN PREDICTING GLOMERULAR FILTRATION RATE. ESTIMATED GFR IS NOT APPLICABLE FOR DIALYSIS PATIENTS. Blood Venipuncture / Unknown 04/11/2025 1:20 AM EST 04/11/2025 1:23 AM EST us Farzad Stiles MD LAB BLOOD ORDERABLES Final Resu lt [facility] [address] [place] [address] * (ABNORMAL) Urinalysis w/Microscopic (04/05/2025 11:04 PM EST) Color, UA Yellow 04/05/2025 11:43 PM [facility] Clarity, UA Clear 04/05/2025 11:43 PM [facility] Specific [place], UA 1.025 1.002 - 1.030 04/05/2025 11:43 PM [facility] pH, UA 6.0 5.0 - 9.0 04/05/2025 11:43 PM [facility] Leukocytes, UA Negative Negative 04/05/2025 11:43 PM [facility] Nitrite, UA Negative Negative 04/05/2025 11:43 PM [facility] Protein, UA 1+(A) Negative 04/05/2025 11:43 PM [facility] Glucose, UA Negative Negative 04/05/2025 11:43 PM [facility] Ketones, UA Trace(A) Negative 04/05/2025 11:43 PM [facility] Urobilinogen, UA 0.2 mg/dL Normal 04/05/2025 11:43 PM [facility] Bilirubin, UA Negative Negative 04/05/2025 11:43 PM [facility] Blood, UA 3+(A) Negative 04/05/2025 11:43 PM [facility] RBC, UA 5-10(A) None Seen, Rare /HPF 04/05/2025 11:43 PM [facility] WBC, UA 0-5 None Seen, Occasional , 0-5 /HPF 04/05/2025 11:43 PM [facility] Bacteria, UA 2+(A) None Seen 04/05/2025 11:43 PM [facility] Mucus 1+(A) Trace 04/05/2025 11:43 PM [facility] SQUAMOUS EPITHELIAL 0-5(A) None Seen, Rare /HPF 04/05/2025 11:43 PM [facility] Ca Oxalate [place], UA 2+(A) (none) 04/05/2025 11:43 PM [facility] Specimen Source Urine, Clean Catch 04/05/2025 11:43 PM [facility] Urine URINE SPECIMEN COLLECTION, CLEAN CATCH / Unknown 04/05/2025 11:04 PM EST 04/05/2025 11:04 PM EST us Keke Gar MD URINE ORDERABLES Final Re sult [facility] [address] [place] [address], [facility] [phone] from Last 3 Months Insurance [facility] Care Teams Quality Assurance Assistant Relationship Specialty Start Date End Date Sarika Moyer, IRON MELTER [address] [place] [address] PCP - General Nurse Practitioner 04/05/25
== END 2025-04-12 23:59 | disposition home or self-care (01) ==
LOC: LAB 09:02
PROVIDERS: PCP Nurse Practitioner Family; Visit Provider Nurse Practitioner Obstetrics & Gynecology
DX: O46.90 Antepartum hemorrhage, unspecified, unspecified trimester (principal); Z3A.00 Weeks of gestation of pregnancy not specified
CPT/HCPCS: 36415; 84702

== ENCOUNTER 2025-04-15 08:46 | Outpatient (CLI) | payer OTHER, SELFPAY ==
--- OUTSIDE RECORDS SUMMARY | 2025-03-27 19:35 | XMS_ITS | Encounter Summary ---
Author Organization Healthcare Address [address] [place] [address] Care Team Providers Care Social Work Coordinator Name Role Phone Sarika Moyer ISAIAH Primary Care Provider + Reason for Visit * Reason Comments Pelvic Pain Encounter Details Date Type Department Care Team (Late st Contact Info) Description 03/27/2025 8:35 PM EDT - 03/28/2025 1:22 AM EDT Emergency PAV A Emergency Department [address] [place] [address] Rose Cortes MD [address] [place] [address] of unknown anatomic location (Primary Dx) Discharge [...] as able. Please increase your water intake. [place] use of warm and/or cold compresses. Primary [...] here is available to you via the [employer] Internet portal. Please make sure that you [...] 24 y.o. with PUL being followed at [facility] who presents for RLQ pain. Patient reports that this is her first . She was having her beta hCG trended for pregnancyof unknown location, with the trend showing an inappropriate rise. Per [facility] records reviewed by ED MICHAEL, on 03/25/25 beta hCG was 568, down from 701. At this time patient received a dose of IM methotrexate. Yesterday morning/afternoon, patient reports that she had increased right lower quadrant/pelvic pain with associated nausea. At [facility] yesterday, beta hCG was found to [...] - Patient with PUL being followed at [facility] - Beta hCG trend shown to be inappropriately rising > 03/17: 258 > 03/19: 276 > 03/20: 370 > 03/21: 342 > 03/24: 701 > 03/25: 568 -- Dose of methotrexate 03/25 -- > 03/27: 543 - Pt with increased RLQ pain 03/27 prompting her to present first to [facility] where beta was noted to have decreased slightly from 03/25. TVUS not directly reviewed, however records indicatea 1.5 cm unknown structure was seen in the R adnexa. - Patient was discharged home from [facility], but due to persistent pain presented [...] with patient that her beta hCG at [facility] today was encouraging. Explained that often [...] Dispo: stable for discharge home from a EQUAL OPPORTUNITY ASSISTANT standpoint. Thank you for including us in the care of this patient. This consult was staffed with Dr. Bowers. Please message on-call EQUAL OPPORTUNITY ASSISTANT resident via [employer] Secure Chat or page [phone] (M-F 6a-6p) or [phone] (nights/weekends) for questions or concerns regarding this patient's care. Ivon Marmolejo MD PGY3 Obstetrics and Gynecology [1] Past Medical History: Diagnosis Date Other specified health status No pertinent past medical history [2] Past Surgical History: Procedure Laterality Date DENTAL SURGERY N/A Dental surgery from [facility] TONSILLECTOMY N/A Tonsillectomy from [facility] [3] Family History Problem Relation Name Age [...] SOA, and urinary symptoms. Medical records from [facility] reviewed: 03/26/2025 -- HCG trends recorded (03/17 -- 258, 03/19--276. 03/20--370. 03/21--342. 03/24--701. 03/25--568.), documented a 1gm Methotrexate given IM on 03/25/2025. 03/27/2025 -- TVUS with1.5cm unknown structure in the right adenxa, 03/27 -- HCG 543. History provided by: Patient plastic tool maker used: No Patient History Past Medical History[1] [...] does not include homicidal or suicidal ideation. [place] Coma Scale Score: 15 ED Course & [...] Abnormality Status --------- ------ ED HIV 1/2 Antibody/Anti...[[id number]] Normal Final result Please view results for [...] 11:57 PM MDM: Patient seen by the [facility] physician and followed-up by myself. In summary: NARRATIVE: Patient is a 24-year-old female who presents with complaints of diffuse right-sided abdominal discomfort. Has been seen multiple times at [facility] and had HCGs done. Has not had an appropriate doubling. Was given a dose of IM methotrexate a couple of days ago. Had an ult rasound done earlier today which did still document a 1.5 cm mass in the right adnexa and hCG in the mid 500s. Patient otherwise had a reassuring exam and H&H and was discharged for outpatient seat cover installer follow-up. Was offered some hydroxyzine at that time, but deferred. Patient presented to our ER for 2nd opinion of her own accord. H&H stable. HCG still in the 600range. Transvaginal ultrasound does not note a right adnexal mass at this time. Given unclear hCG trend and patient concern, seat cover installer was consulted. Patient signed out pending final seat cover installer recommendations. Clinical Impressions as of 03/28/2533 of [...] mg Oral Given Ivana Loredo PA-C EMR Dragon/Program Manager Rn disclaimer: Much of this encounter note is an electronic drying tunnel operator of spoken language to printed text. Electronic drying tunnel operator of spoken language may permit erroneous, [...] as able. Please increase your water intake. [place] use of warm and/or cold compresses. Primary [...] here is available to you via the [employer] Internet portal. Please make sure that you are registered for access to this. Disposition Discharge AVS (Maltese Snapshot) - Printed 03/28/2025 Follow-Ups Go to Sarika Moyer APRN; As needed Follow up with [facility]s [facility] Gynecology (Obstetrics and [...] Reactive Non Reactive 03/27/2025 9:26 PM EDT [facility] Comment:Screening for HIV 1 & 2 antibodies, and P24 antigen is NONREACTIVE. No confirmatory testing is required. Blood Venous blood specimen / Unknown Venipuncture / Unknown 03/27/2025 8:31 PM EDT 03/27/2025 8:44 PM EDT Result [facility] us Rose Cortes MD LAB BLOOD ORDERABLES Final Resu lt [facility] [address] [place] [address] * Hepatitis C Antibody - ED (03/27/2025 8:31 PM EDT) Hepatitis C Antibody Negative Negative 03/27/2025 9:26 PM EDT [facility] Blood Venous blood specimen / Unknown Venipuncture / Unknown 03/27/2025 8:31 PM EDT 03/27/2025 8:44 PM EDT Result [facility] us Rose Cortes MD LAB BLOOD ORDERABLES Final Resu lt [facility] [address] [place] [address] * Type and screen (03/27/2025 8:31 PM [...] Final Result Performing Organization Address [facility] de Phone Number BLOOD BANK [address] [place] [address], [place] * (ABNORMAL) hCG, quantitative, (03/27/2025 8:31 PM EDT) hCG, Total Beta 626.2(H) <5 mIU/mL 03/27/2025 9:22 PM EDT [facility] Blood Venous blood specimen / Unknown Venipuncture / Unknown 03/27/2025 8:31 PM EDT 03/27/2025 8:41 PM EDT Narrative [facility] - 03/27/2025 9:22 PM [...] ORDERABLES Final Resu lt Performing Organization Address City/[facility]/ZIP Co de Phone Number [facility] [address] [place] [address] * (ABNORMAL) CBC w/diff (03/27/2025 8:31 PM EDT) WBC Count 11.76(H) 3.70 - 10.30 10*3/uL LAB HEMATOLOGY METHOD 03/27/2025 8:44 PM EDT [facility] RBC Count 4.82 3.90 - 5.20 10*6/uL LAB HEMATOLOGY METHOD 03/27/2025 8:44 PM EDT [facility] HGB 14.2 11.2 - 15.7 g/dL LAB HEMATOLOGY METHOD 03/27/2025 8:44 PM EDT [facility] HCT 39.9 34.0 - 45.0 % LAB HEMATOLOGY METHOD 03/27/2025 8:44 PM EDT [facility] Platelet Count 523(H) 155 - 369 10*3/uL LAB HEMATOLOGY METHOD 03/27/2025 8:44 PM EDT [facility] MCV 83 79 - 98 fL LAB HEMATOLOGY METHOD 03/27/2025 8:44 PM EDT [facility] MCH 29.5 26.0 - 32.0 pg LAB HEMATOLOGY METHOD 03/27/2025 8:44 PM EDT [facility] MCHC 35.6(H) 30.7 - 35.5 g/dL LAB HEMATOLOGY METHOD 03/27/2025 8:44 PM EDT [facility] RDW 12.2 11.5 - 14.5 % LAB HEMATOLOGY METHOD 03/27/2025 8:44 PM EDT [facility] MPV 9.3 8.8 - 12.5 fL LAB HEMATOLOGY METHOD 03/27/2025 8:44 PM EDT [facility] nRBC 0.0 <=0.0 per 100 WBCs LAB HEMATOLOGY METHOD 03/27/2025 8:44 PM EDT [facility] Differential Type Automated LAB HEMATOLOGY METHOD 03/27/2025 8:44 PM EDT [facility] Neutrophils % 71 % LAB HEMATOLOGY METHOD 03/27/2025 8:44 PM EDT [facility] Lymphocytes % 25 % LAB HEMATOLOGY METHOD 03/27/2025 8:44 PM EDT [facility] Monocytes % 4 % LAB HEMATOLOGY METHOD 03/27/2025 8:44 PM EDT [facility] Eosinophils % 0 % LAB HEMATOLOGY METHOD 03/27/2025 8:44 PM EDT [facility] Basophils % 0 % LAB HEMATOLOGY METHOD 03/27/2025 8:44 PM EDT [facility] Immature Granulocytes % 0 % LAB HEMATOLOGY METHOD 03/27/2025 8:44 PM EDT [facility] Neutrophils Absolute 8.17(H) 1.60 - 6.10 10*3/uL LAB HEMATOLOGY METHOD 03/27/2025 8:44 PM EDT [facility] Lymphocytes Absolute 2.96 1.20 - 3.90 10*3/uL LAB HEMATOLOGY METHOD 03/27/2025 8:44 PM EDT [facility] Monocytes Absolute 0.52 0.30 - 0.90 10*3/uL LAB HEMATOLOGY METHOD 03/27/2025 8:44 PM EDT [facility] Eosinophils Absolute 0.03 0.00 - 0.50 10*3/uL LAB HEMATOLOGY METHOD 03/27/2025 8:44 PM EDT [facility] Basophils Absolute 0.05 0.00 - 0.10 10*3/uL LAB HEMATOLOGY METHOD 03/27/2025 8:44 PM EDT [facility] Immature Granulocytes Absolute 0.03 0.00 - 0.06 10*3/uL LAB HEMATOLOGY METHOD 03/27/2025 8:44 PM EDT [facility] Blood Venous blood specimen / Unknown Venipuncture / Unknown 03/27/2025 8:31 PM EDT 03/27/2025 8:41 PM EDT Narrative [facility] - 03/27/2025 8:44 PM EDT Therapeutic decision making should be based on absolute values, rather than percentages. us Rose Cortes MD LAB BLOOD ORDERABLES Final Resu lt [facility] [address] [place] [address] * (ABNORMAL) CMP (03/27/2025 8:31 PM EDT) Glucose, Plasma 96 74 - 99 mg/dL 03/27/2025 9:22 PM EDT [facility] BUN, Plasma 11 7 - 21 mg/dL 03/27/2025 9:22 PM EDT [facility] Creatinine, Plasma 0.48(L) 0.60 - 1.10 mg/dL 03/27/2025 9:22 PM EDT [facility] BUN/Creatinine Ratio 23 03/27/2025 9:22 PM EDT [facility] Sodium, Plasma 136 136 - 145 mmol/L 03/27/2025 9:22 PM EDT [facility] Potassium, Plasma 3.1(L) 3.6 - 4.9 mmol/L 03/27/2025 9:22 PM EDT [facility] Chloride, Plasma 100 97 - 107 mmol/L 03/27/2025 9:22 PM EDT [facility] CO2, Plasma 20(L) 22 - 29 mmol/L 03/27/2025 9:22 PM EDT [facility] Anion Gap 16 6 - 16 mmol/L 03/27/2025 9:22 PM EDT [facility] Total Calcium, Plasma 9.8 8.9 - 10.2 mg/dL 03/27/2025 9:22 PM EDT [facility] Total Protein 7.7 6.3 - 7.9 g/dL 03/27/2025 9:22 PM EDT [facility] Albumin, Plasma 4.9 3.5 - 5.2 g/dL 03/27/2025 9:22 PM EDT [facility] AST, Plasma 17 10 - 35 U/L 03/27/2025 9:22 PM EDT [facility] ALT, Plasma 8(L) 10 - 35 U/L 03/27/2025 9:22 PM EDT [facility] Alkaline Phosphatase, Plasma 102 35 - 104 U/L 03/27/2025 9:22 PM EDT [facility] Total Bilirubin, Plasma 1.3(H) 0.2 - 1.1 mg/dL 03/27/2025 9:22 PM EDT [facility] eGFRcr 137.5 mL/min/1.7 3m*2 03/27/2025 9:22 PM EDT [facility] Comment:Reported eGFRcr in m L/min/1.73m2 is based the CKD-EPI 2020 equation that does not use a race coefficient. Blood Venous blood specimen / Unknown Venipuncture / Unknown 03/27/2025 8:31 PM EDT 03/27/2025 8:41 PM EDT us Rose Cortes MD LAB BLOOD ORDERABLES Final Resu lt [facility] [address] [place] [address] documented in this encounter Visit Diagnoses Diagnosis [...] Foss) documented in this encounter Care Teams Social Work Coordinator Relationship Specialty Start Date End Date Sarika Moyer APRN [address] [place] [address] PCP - General 10/14/20 documented as of this encounter
--- OUTSIDE RECORDS SUMMARY | 2025-04-05 22:43 | XMS_ITS | Encounter Summary ---
Author Organization [employer] ([place], [place], [place], [place], [place]) Address [address] [place] [address] Care Team Providers Care Resp Ther Name Role Phone Sarika Moyer APRN Primary [...] EST - 04/06/2025 2:31 AM EST Emergency [facility] Emergency Department [address] [place] [phone] Keke Gar MD [address] [place] [address] Ectopic (Primary Dx) Discharge Disposition: Home or [...] be sent through Care Everywhere. * Ectopic [id number] (Cuban) documented in this encounter ED Notes * [...] Color, UA Yellow Clarity, UA Clear Specific [place], UA 1.025 1.002 - 1.030 pH, UA [...] doctor Call today Next Steps: Follow up R SECURITY ANALYST documented in this encounter Plan of Treatment [...] Authenticated and Keke Gar MD [facility] [place] Edited Result - Final * (ABNORMAL) Comprehensive metabolic panel (04/05/2025 11:30 PM EST) Sodium 140 136 - 145 meq/L 04/06/2025 12:03 AM [facility] Potassium 3.3(L) 3.5 - 5.1 meq/L 04/06/2025 12:03 AM [facility] Chloride 102 98 - 107 meq/L 04/06/2025 12:03 AM [facility] CO2 25 21 - 32 meq/L 04/06/2025 12:03 AM [facility] Calcium 9.5 8.5 - 10.1 mg/dL 04/06/2025 12:03 AM [facility] Glucose 106(H) 74 - 100 mg/dL 04/06/2025 12:03 AM [facility] BUN 12 7 - 18 mg/dL 04/06/2025 12:03 AM [facility] Creatinine 0.60 0.55 - 1.10 mg/dL 04/06/2025 12:03 AM [facility] BUN/Creatinine 20 04/06/2025 12:03 AM [facility] Albumin 4.5 3.4 - 5.0 g/dL 04/06/2025 12:03 AM [facility] Alkaline Phosphatase 91 46 - 116 U/L 04/06/2025 12:03 AM [facility] ALT 10(L) 12 - 78 U/L 04/06/2025 12:03 AM [facility] AST 14(L) 15 - 37 U/L 04/06/2025 12:03 AM [facility] Total Bilirubin 0.3 0.2 - 1.0 mg/dL 04/06/2025 12:03 AM [facility] Protein, Total 8.0 6.4 - 8.2 gm/dL 04/06/2025 12:03 AM [facility] Anion Gap 16 11 - 22 04/06/2025 12:03 AM [facility] A/G Ratio 1.3 04/06/2025 12:03 AM [facility] Globulin 3.5 g/dL 04/06/2025 12:03 AM [facility] Osmolality Calc 279.6 mOsm/kg 12:03 AM [facility] eGFR (mL/min/1.73m2) >60 >=60 mL/min/1.7 3m2 04/06/2025 12:03 AM [facility] Comment:ESTIMATED GFR IS NOT ACCURATE CREATININE CLEARANCE IN PREDICTING GLOMERULAR FILTRATION RATE. ESTIMATED GFR IS NOT APPLICABLE FOR DIALYSIS PATIENTS. Blood Venipuncture / Unknown 04/05/2025 11:30 PM EST 04/05/2025 11:41 PM EST us Keke Gar MD LAB BLOOD ORDERABLES Lainey mckay Result [facility] [address] [id number] [phone] * (ABNORMAL) CBC with Auto Diff (04/05/2025 11:30 PM EST) WBC 9.8 4.8 - 10.8 K/ L 04/05/2025 11:45 PM [facility] RBC 4.72 3.50 - 5.20 M/ L 04/05/2025 11:45 PM [facility] Hemoglobin 13.8 11.7 - 15.8 GM/DL 04/05/2025 11:45 PM [facility] Hematocrit 40.9 35.0 - 47.0 % 04/05/2025 11:45 PM [facility] MCV 87 81 - 101 fL 04/05/2025 11:45 PM [facility] MCH 29.2 27.0 - 34.0 pg 04/05/2025 11:45 PM [facility] MCHC 33.7 32.0 - 36.0 GM/DL 04/05/2025 11:45 PM [facility] RDW 13.1 11.5 - 14.5 % 04/05/2025 11:45 PM [facility] Platelets 511(H) 150 - 400 K/CU MM 04/05/2025 11:45 PM [facility] MPV 9.2(L) 9.4 - 12.4 fL 04/05/2025 11:45 PM [facility] Nucleated Red Blood Cell 0.0 0 - 0.2 % 04/05/2025 11:45 PM [facility] % Neutros 65 37 - 80 % 04/05/2025 11:45 PM [facility] % Lymphs 27 10 - 50 % 04/05/2025 11:45 PM [facility] % Monos 6 5 - 13 % 04/05/2025 11:45 PM [facility] % Eos 0.8 0.0 - 7.0 % 04/05/2025 11:45 PM [facility] % Baso 1 0 - 3 % 04/05/2025 11:45 PM [facility] NRBC Absolute <0.01 0 - 0.012 K/ul 04/05/2025 11:45 PM [facility] # Neutros 6.35 2.00 - 6.90 K/ L 04/05/2025 11:45 PM EST [facility] # Lymphs 2.68 0.60 - 3.40 K/ L 04/05/2025 11:45 PM EST [facility] # Monos 0.62 0.00 - 0.90 K/ L 04/05/2025 11:45 PM EST [facility] # Eos 0.08 0.00 - 0.70 K/ L 04/05/2025 11:45 PM EST [facility] # Baso 0.05 0.00 - 0.20 K/ L 04/05/2025 11:45 PM EST [facility] % Imm Grans 0.20 % 04/05/2025 11:45 PM EST [facility] # IG 0.02(H) 0.00 - 0.00 K/uL 04/05/2025 11:45 PM EST [facility] Blood Venipuncture / Unknown 04/05/2025 11:30 PM EST 04/05/2025 11:41 PM EST Narrative [facility] - 04/05/2025 11:45 PM [...] MD LAB BLOOD ORDERABLES Lainey l Result [facility] [address] [place], [place] [id number], [facility] [phone] * (ABNORMAL) Urinalysis w/Microscopic (04/05/2025 11:04 PM EST) Color, UA Yellow 04/05/2025 11:43 PM EST [facility] Clarity, UA Clear 04/05/2025 11:43 PM [facility] Specific [place], UA 1.025 1.002 - 1.030 04/05/2025 11:43 PM [facility] pH, UA 6.0 5.0 - 9.0 04/05/2025 11:43 PM [facility] Leukocytes, UA Negative Negative 04/05/2025 11:43 PM [facility] Nitrite, UA Negative Negative 04/05/2025 11:43 PM [facility] Protein, UA 1+(A) Negative 04/05/2025 11:43 PM [facility] Glucose, UA Negative Negative 04/05/2025 11:43 PM [facility] Ketones, UA Trace(A) Negative 04/05/2025 11:43 PM [facility] Urobilinogen, UA 0.2 mg/dL Normal 04/05/2025 11:43 PM [facility] Bilirubin, UA Negative Negative 04/05/2025 11:43 PM [facility] Blood, UA 3+(A) Negative 04/05/2025 11:43 PM [facility] RBC, UA 5-10(A) None Seen, Rare /HPF 04/05/2025 11:43 PM [facility] WBC, UA 0-5 None Seen, Occasional , 0-5 /HPF 04/05/2025 11:43 PM [facility] Bacteria, UA 2+(A) None Seen 04/05/2025 11:43 PM [facility] Mucus 1+(A) Trace 04/05/2025 11:43 PM [facility] SQUAMOUS EPITHELIAL 0-5(A) None Seen, Rare /HPF 04/05/2025 11:43 PM [facility] Ca Oxalate [place], UA 2+(A) (none) 04/05/2025 11:43 PM [facility] Specimen Source Urine, Clean Catch 04/05/2025 11:43 PM [facility] Urine URINE SPECIMEN COLLECTION, CLEAN CATCH / Unknown 04/05/2025 11:04 PM EST 04/05/2025 11:04 PM EST us Keke Gar MD URINE ORDERABLES Final Re sult [facility] [address] [id number], [facility] [phone] documented in this encounter Visit Diagnoses Diagnosis Ectopic - Primary Unspecified ectopic without intrauterine documented in this encounter Care Teams Resp Ther Relationship Specialty Start Date End Date Sarika Moyer, WARP KNITTING MACHINE OPERATOR [address] [place] [address] PCP - General Nurse Practitioner 04/05/25 documented as of this encounter
--- OUTSIDE RECORDS SUMMARY | 2025-04-10 23:39 | XMS_ITS | Encounter Summary ---
Author Organization [employer] ([place], [place], [place], [place], [place]) Address [address] [place] [address] Care Team Providers Care Mask Design Engineer Name Role Phone Sarika Moyer SHIP CEILER Primary Care Provider + Reason for Visit [...] EST - 04/11/2025 5:09 AM EST Emergency [facility] Emergency Department [address] [place] [phone] Farzad Stiles MD [address] [place] [address] Ectopic (Primary Dx); Hypokalemia Discharge Disposition: Home [...] Follow-up with your primary care doctor or project engineer, call for appointment. Return to the emergency department for any new or worsening symptoms. [facility] NURSING DIRECTOR * Attachments The following attachments cannot be sent through Care Everywhere. * Hypokalemia (Mosotho) * Ectopic [id number] (Mosotho) documented in this encounter ED Notes * [...] 2. Hypokalemia Farzad Stiles MD 04/11/25 0508 [facility] NURSING DIRECTOR documented in this encounter Plan of Treatment [...] sac. IMPRESSION: Authenticated and Farzad Stiles MD [facility] ORDERABLES Edited Result - Final * hCG, quantitative, (04/11/2025 1:20 AM EST) HCG Serum Quant 133 mIU/mL 1:58 AM EST [facility] Comment: Results of the HCG [...] MD LAB BLOOD ORDERABLES Final Resu lt [facility] [address] [place] [address] * (ABNORMAL) Comprehensive metabolic panel (04/11/2025 1:20 AM EST) Sodium 142 136 - 145 meq/L 04/11/2025 1:58 AM EST [facility] Potassium 3.1(L) 3.5 - 5.1 meq/L 04/11/2025 1:58 AM EST [facility] Chloride 105 98 - 107 meq/L 04/11/2025 1:58 AM EST [facility] CO2 28 21 - 32 meq/L 04/11/2025 1:58 AM EST [facility] Calcium 9.0 8.5 - 10.1 mg/dL 04/11/2025 1:58 AM EST [facility] Glucose 105(H) 74 - 100 mg/dL 04/11/2025 1:58 AM EST [facility] BUN 11 7 - 18 mg/dL 04/11/2025 1:58 AM EST [facility] Creatinine 0.61 0.55 - 1.10 mg/dL 04/11/2025 1:58 AM [facility] BUN/Creatinine 18 04/11/2025 1:58 AM [facility] Albumin 3.9 3.4 - 5.0 g/dL 04/11/2025 1:58 AM [facility] Alkaline Phosphatase 78 46 - 116 U/L 04/11/2025 1:58 AM [facility] ALT 12 12 - 78 U/L 04/11/2025 1:58 AM [facility] AST 11(L) 15 - 37 U/L 04/11/2025 1:58 AM [facility] Total Bilirubin 0.4 0.2 - 1.0 mg/dL 04/11/2025 1:58 AM [facility] Protein, Total 7.1 6.4 - 8.2 gm/dL 04/11/2025 1:58 AM [facility] Anion Gap 12 11 - 22 04/11/2025 1:58 AM [facility] A/G Ratio 1.2 04/11/2025 1:58 AM [facility] Globulin 3.2 g/dL 04/11/2025 1:58 AM [facility] Osmolality Calc 282.9 mOsm/kg 1:58 AM [facility] eGFR (mL/min/1.73m2) >60 >=60 mL/min/1.7 3m2 04/11/2025 1:58 AM [facility] Comment:ESTIMATED GFR IS NOT ACCURATE CREATININE CLEARANCE IN PREDICTING GLOMERULAR FILTRATION RATE. ESTIMATED GFR IS NOT APPLICABLE FOR DIALYSIS PATIENTS. Blood Venipuncture / Unknown 04/11/2025 1:20 AM EST 04/11/2025 1:23 AM EST us Farzad Stiles MD LAB BLOOD ORDERABLES Final Resu lt [facility] [address] [place] [address], [facility] [phone] * (ABNORMAL) CBC with Auto Diff (04/11/2025 1:20 AM [facility]) WBC 7.3 4.8 - 10.8 K/ L 04/11/2025 1:27 AM [facility] RBC 4.32 3.50 - 5.20 M/ L 04/11/2025 1:27 AM [facility] Hemoglobin 12.7 11.7 - 15.8 GM/DL 04/11/2025 1:27 AM [facility] Hematocrit 37.8 35.0 - 47.0 % 04/11/2025 1:27 AM [facility] MCV 88 81 - 101 fL 04/11/2025 1:27 AM [facility] MCH 29.4 27.0 - 34.0 pg 04/11/2025 1:27 AM [facility] MCHC 33.6 32.0 - 36.0 GM/DL 04/11/2025 1:27 AM [facility] RDW 13.2 11.5 - 14.5 % 04/11/2025 1:27 AM [facility] Platelets 432(H) 150 - 400 K/CU MM 04/11/2025 1:27 AM [facility] MPV 9.1(L) 9.4 - 12.4 fL 04/11/2025 1:27 AM [facility] Nucleated Red Blood Cell 0.0 0 - 0.2 % 04/11/2025 1:27 AM [facility] % Neutros 55 37 - 80 % 04/11/2025 1:27 AM [facility] % Lymphs 34 10 - 50 % 04/11/2025 1:27 AM [facility] % Monos 9 5 - 13 % 04/11/2025 1:27 AM [facility] % Eos 1.5 0.0 - 7.0 % 04/11/2025 1:27 AM [facility] % Baso 1 0 - 3 % 04/11/2025 1:27 AM [facility] NRBC Absolute <0.01 0 - 0.012 K/ul 04/11/2025 1:27 AM EST [facility] # Neutros 4.04 2.00 - 6.90 K/ L 04/11/2025 1:27 AM EST [facility] # Lymphs 2.51 0.60 - 3.40 K/ L 04/11/2025 1:27 AM EST [facility] # Monos 0.62 0.00 - 0.90 K/ L 04/11/2025 1:27 AM EST [facility] # Eos 0.11 0.00 - 0.70 K/ L 04/11/2025 1:27 AM EST [facility] # Baso 0.04 0.00 - 0.20 K/ L 04/11/2025 1:27 AM EST [facility] % Imm Grans 0.10 % 04/11/2025 1:27 AM EST [facility] # IG 0.01(H) 0.00 - 0.00 K/uL 04/11/2025 1:27 AM EST [facility] Blood Venipuncture / Unknown 04/11/2025 1:20 AM EST 04/11/2025 1:23 AM EST Narrative [facility] - 04/11/2025 1:27 AM EST [...] MD LAB BLOOD ORDERABLES Final Resu lt [facility] [address] [place], [place] [address] [phone] documented in this encounter Visit Diagnoses Diagnosis [...] access) documented in this encounter Care Teams Mask Design Engineer Relationship Specialty Start Date End Date Sarika Moyer, SHIP CEILER [address] [place] [address] PCP - General Nurse Practitioner 04/05/25 documented as of this encounter
--- OUTSIDE RECORDS SUMMARY | 2025-04-15 08:49 | XMS_ITS | Encounter Summary ---
Author Organization Healthcare Address [address] [id number] Care Team Providers Care Bi Lead Name Role Phone Sarika Moyer BUDGET ENGINEER Primary Care Provider + Encounter Details [...] on filedocumented in this encounter Care Teams Bi Lead Relationship Specialty Start Date End Date Sarika Moyer, BUDGET ENGINEER [address] [place] [address] PCP - General 10/14/20 documented as of this encounter
--- OUTSIDE RECORDS SUMMARY | 2025-04-15 08:49 | XMS_ITS | Clinical Summary ---
Author Organization Healthcare Address [address] [id number] Care Team Providers Care Plumbing Service Technician Name Role Phone Sarika Moyer [facility] Primary Care Provider + Allergies Active Allergy Reactions Criticality Noted Date Comments Escitalopram Anaphylaxis High 03/27/2025 Robitussin Dm Max Day-Night Anxiety Low 03/27/20 Medications No known medications Active Problems Comments Yes No known active problems Encounters Date Type Department Care Team Description 03/27/2025 8:35 PM EDT - 03/28/2025 1:22 AM EDT Emergency [facility] Emergency Department [address] [place] [phone] Rose Cortes MD of unknown anatomic location (Primary Dx) Discharge Disposition: Home or Self Care 03/27/2025 Travel 03/17/2025 Telephone Obstetrics & Gynecology [address] [place] [phone] Chiki Cardenas MD from Last 3 [...] 10/19/2024 10/19/2014, 05/21/2006, 08/26/2003, Additional history exists [id number] Vaccine (1 - season) 2025 UKY-Influenza Vaccine [...] Reactive Non Reactive 03/27/2025 9:26 PM EDT [facility] Comment:Screening for HIV 1 & 2 antibodies, and P24 antigen is NONREACTIVE. No confirmatory testing is required. Blood Venous blood specimen / Unknown Venipuncture / Unknown 03/27/2025 8:31 PM EDT 03/27/2025 8:44 PM EDT Rose Cortes MD LAB BLOOD ORDERABLES Final Resu lt [facility] [address] [place] [address] * Hepatitis C Antibody - ED (03/27/2025 8:31 PM EDT) Hepatitis C Antibody Negative Negative 03/27/2025 9:26 PM EDT [facility] Blood Venous blood specimen / Unknown Venipuncture / Unknown 03/27/2025 8:31 PM EDT 03/27/2025 8:44 PM EDT us Rose Cortes MD LAB BLOOD ORDERABLES Final Resu lt [facility] [address] [place] [address] * (ABNORMAL) CBC w/diff (03/27/2025 8:31 PM EDT) Pathologist [facility] WBC Count 11.76(H) 3.70 - 10.30 10*3/uL LAB HEMATOLOGY METHOD 03/27/2025 8:44 PM EDT [facility] RBC Count 4.82 3.90 - 5.20 10*6/uL LAB HEMATOLOGY METHOD 03/27/2025 8:44 PM EDT [facility] HGB 14.2 11.2 - 15.7 g/dL LAB HEMATOLOGY METHOD 03/27/2025 8:44 PM EDT [facility] HCT 39.9 34.0 - 45.0 % LAB HEMATOLOGY METHOD 03/27/2025 8:44 PM EDT [facility] Platelet Count 523(H) 155 - 369 10*3/uL LAB HEMATOLOGY METHOD 03/27/2025 8:44 PM EDT [facility] MCV 83 79 - 98 fL LAB HEMATOLOGY METHOD 03/27/2025 8:44 PM EDT [facility] MCH 29.5 26.0 - 32.0 pg LAB HEMATOLOGY METHOD 03/27/2025 8:44 PM EDT [facility] MCHC 35.6(H) 30.7 - 35.5 g/dL LAB HEMATOLOGY METHOD 03/27/2025 8:44 PM EDT [facility] RDW 12.2 11.5 - 14.5 % LAB HEMATOLOGY METHOD 03/27/2025 8:44 PM EDT [facility] MPV 9.3 8.8 - 12.5 fL LAB HEMATOLOGY METHOD 03/27/2025 8:44 PM EDT [facility] nRBC 0.0 <=0.0 per 100 WBCs LAB HEMATOLOGY METHOD 03/27/2025 8:44 PM EDT [facility] Differential Type Automated LAB HEMATOLOGY METHOD 03/27/2025 8:44 PM EDT [facility] Neutrophils % 71 % LAB HEMATOLOGY METHOD 03/27/2025 8:44 PM EDT [facility] Lymphocytes % 25 % LAB HEMATOLOGY METHOD 03/27/2025 8:44 PM EDT [facility] Monocytes % 4 % LAB HEMATOLOGY METHOD 03/27/2025 8:44 PM EDT [facility] Eosinophils % 0 % LAB HEMATOLOGY METHOD 03/27/2025 8:44 PM EDT [facility] Basophils % 0 % LAB HEMATOLOGY METHOD 03/27/2025 8:44 PM EDT [facility] Immature Granulocytes % 0 % LAB HEMATOLOGY METHOD 03/27/2025 8:44 PM EDT [facility] Neutrophils Absolute 8.17(H) 1.60 - 6.10 10*3/uL LAB HEMATOLOGY METHOD 03/27/2025 8:44 PM EDT [facility] Lymphocytes Absolute 2.96 1.20 - 3.90 10*3/uL LAB HEMATOLOGY METHOD 03/27/2025 8:44 PM EDT [facility] Monocytes Absolute 0.52 0.30 - 0.90 10*3/uL LAB HEMATOLOGY METHOD 03/27/2025 8:44 PM EDT [facility] Eosinophils Absolute 0.03 0.00 - 0.50 10*3/uL LAB HEMATOLOGY METHOD 03/27/2025 8:44 PM EDT [facility] Basophils Absolute 0.05 0.00 - 0.10 10*3/uL LAB HEMATOLOGY METHOD 03/27/2025 8:44 PM EDT [facility] Immature Granulocytes Absolute 0.03 0.00 - 0.06 10*3/uL LAB HEMATOLOGY METHOD 03/27/2025 8:44 PM EDT [facility] Blood Venous blood specimen / Unknown Venipuncture / Unknown 03/27/2025 8:31 PM EDT 03/27/2025 8:41 PM EDT Narrative [facility] - 03/27/2025 8:44 PM EDT Therapeutic decision making should be based on absolute values, rather than percentages. Rose Cortes MD LAB BLOOD ORDERABLES Final Resu lt Performing Organization Address City/[facility]/ZIP Co de Phone Number [facility] [address] [place] [address] * Type and screen (03/27/2025 8:31 PM [...] TEST ORDERABLES Final Result Performing Organization Address [facility] de Phone Number BLOOD BANK [address] [place] [address] * (ABNORMAL) hCG, quantitative, (03/27/2025 8:31 PM EDT) hCG, Total Beta 626.2(H) <5 mIU/mL 03/27/2025 9:22 PM EDT [facility] Blood Venous blood specimen / Unknown Venipuncture / Unknown 03/27/2025 8:31 PM EDT 03/27/2025 8:41 PM EDT Narrative [facility] - 03/27/2025 9:22 [...] MD LAB BLOOD ORDERABLES Final Resu lt [facility] [address] [place] [address] * (ABNORMAL) CMP (03/27/2025 8:31 PM EDT) Glucose, Plasma 96 74 - 99 mg/dL 03/27/2025 9:22 PM EDT [facility] BUN, Plasma 11 7 - 21 mg/dL 03/27/2025 9:22 PM EDT [facility] Creatinine, Plasma 0.48(L) 0.60 - 1.10 mg/dL 03/27/2025 9:22 PM EDT [facility] BUN/Creatinine Ratio 23 03/27/2025 9:22 PM EDT [facility] Sodium, Plasma 136 136 - 145 mmol/L 03/27/2025 9:22 PM EDT [facility] Potassium, Plasma 3.1(L) 3.6 - 4.9 mmol/L 03/27/2025 9:22 PM EDT [facility] Chloride, Plasma 100 97 - 107 mmol/L 03/27/2025 9:22 PM EDT [facility] CO2, Plasma 20(L) 22 - 29 mmol/L 03/27/2025 9:22 PM EDT [facility] Anion Gap 16 6 - 16 mmol/L 03/27/2025 9:22 PM EDT [facility] Total Calcium, Plasma 9.8 8.9 - 10.2 mg/dL 03/27/2025 9:22 PM EDT [facility] Total Protein 7.7 6.3 - 7.9 g/dL 03/27/2025 9:22 PM EDT [facility] Albumin, Plasma 4.9 3.5 - 5.2 g/dL 03/27/2025 9:22 PM EDT [facility] AST, Plasma 17 10 - 35 U/L 03/27/2025 9:22 PM EDT [facility] ALT, Plasma 8(L) 10 - 35 U/L 03/27/2025 9:22 PM EDT [facility] Alkaline Phosphatase, Plasma 102 35 - 104 U/L 03/27/2025 9:22 PM EDT [facility] Total Bilirubin, Plasma 1.3(H) 0.2 - 1.1 mg/dL 03/27/2025 9:22 PM EDT [facility] eGFRcr 137.5 mL/min/1.7 3m*2 03/27/2025 9:22 PM EDT [facility] Comment:Reported eGFRcr in m L/min/1.73m2 is based the CKD-EPI 2020 equation that does not use a race coefficient. Blood Venous blood specimen / Unknown Venipuncture / Unknown 03/27/2025 8:31 PM EDT 03/27/2025 8:41 PM EDT us Rose Cortes MD LAB BLOOD ORDERABLES Final Resu lt [facility] [address] [place] [address] from Last 3 Months Insurance [facility] MEDICAID Care Teams Plumbing Service Technician Relationship Specialty Start Date End Date Sarika Moyer APRN [address] [place] [address] PCP - General 10/14/20
--- OUTSIDE RECORDS SUMMARY | 2025-04-15 08:49 | XMS_ITS | Encounter Summary ---
Author Organization [employer] ([place], [place], [place], [place], [place]) Address [address] [place] [address] Care Team Providers Care Furnace Cooler Name Role Phone Sarika Moyer STARS SPECIALIST Primary Care Provider + Encounter Details Date [...] on filedocumented in this encounter Care Teams Furnace Cooler Relationship Specialty Start Date End Date Sarika Moyer APRN [address] [place] [address] PCP - General Nurse Practitioner 04/05/25 documented as of this encounter
--- OUTSIDE RECORDS SUMMARY | 2025-04-15 08:50 | XMS_ITS | Encounter Summary ---
Author Organization [employer] ([place], [place], [place], [place], [place]) Address [address] [place] [address] Care Team Providers Care Long Term Care Pharmacist Name Role Phone Sarika Moyer CLERICAL ADMINISTRATOR Primary Care Provider + Encounter Details Date [...] on filedocumented in this encounter Care Teams Long Term Care Pharmacist Relationship Specialty Start Date End Date Sarika Moyer APRN [address] [place] [address] PCP - General Nurse Practitioner 04/05/25 documented as of this encounter
--- OUTSIDE RECORDS SUMMARY | 2025-04-15 08:51 | XMS_ITS | Clinical Summary ---
Author Organization [employer] ([place], [place], [place], [place], [place]) Address [address] [place] [address] Care Team Providers Care Laundry Superintendent Name Role Phone Sarika Moyer [employer] Primary Care Provider + Allergies Active Allergy Reactions Criticality Noted Date Comments Escitalopram 04/05/2025 Acetaminophen-Dm 04/05/2025 Medications No known medications Encounters Date Type Department Care Team Description 04/10/2025 11:39 PM EST - 04/11/2025 5:09 AM EST Emergency [facility] Emergency Department [address] [place] [phone] Farzad Stiles MD Ectopic (Primary Dx); Hypokalemia Discharge Disposition: Home or Self Care 04/10/2025 Travel 04/05/2025 10:43 PM EST - 04/06/2025 2:31 AM EST Emergency [facility] Emergency Department [address] [place] [phone] Keke Gar MD Ectopic (Primary Dx) Discharge [...] sac. IMPRESSION: Authenticated and Farzad Stiles MD [facility] ORDERABLES Edited Result - Final * (ABNORMAL) CBC with Auto Diff (04/11/2025 1:20 AM EST) Only the most recent of2 resultswithin the time period is included. WBC 7.3 4.8 - 10.8 K/ L 04/11/2025 1:27 AM EST [facility] RBC 4.32 3.50 - 5.20 M/ L 04/11/2025 1:27 AM EST [facility] Hemoglobin 12.7 11.7 - 15.8 GM/DL 04/11/2025 1:27 AM [facility] Hematocrit 37.8 35.0 - 47.0 % 04/11/2025 1:27 AM [facility] MCV 88 81 - 101 fL 04/11/2025 1:27 AM [facility] MCH 29.4 27.0 - 34.0 pg 04/11/2025 1:27 AM [facility] MCHC 33.6 32.0 - 36.0 GM/DL 04/11/2025 1:27 AM [facility] RDW 13.2 11.5 - 14.5 % 04/11/2025 1:27 AM [facility] Platelets 432(H) 150 - 400 K/CU MM 04/11/2025 1:27 AM [facility] MPV 9.1(L) 9.4 - 12.4 fL 04/11/2025 1:27 AM [facility] Nucleated Red Blood Cell 0.0 0 - 0.2 % 04/11/2025 1:27 AM [facility] % Neutros 55 37 - 80 % 04/11/2025 1:27 AM [facility] % Lymphs 34 10 - 50 % 04/11/2025 1:27 AM [facility] % Monos 9 5 - 13 % 04/11/2025 1:27 AM [facility] % Eos 1.5 0.0 - 7.0 % 04/11/2025 1:27 AM [facility] % Baso 1 0 - 3 % 04/11/2025 1:27 AM [facility] NRBC Absolute <0.01 0 - 0.012 K/ul 04/11/2025 1:27 AM [facility] # Neutros 4.04 2.00 - 6.90 K/ L 04/11/2025 1:27 AM [facility] # Lymphs 2.51 0.60 - 3.40 K/ L 04/11/2025 1:27 AM EST [facility] # Monos 0.62 0.00 - 0.90 K/ L 04/11/2025 1:27 AM EST [facility] # Eos 0.11 0.00 - 0.70 K/ L 04/11/2025 1:27 AM EST [facility] # Baso 0.04 0.00 - 0.20 K/ L 04/11/2025 1:27 AM EST [facility] % Imm Grans 0.10 % 04/11/2025 1:27 AM EST [facility] # IG 0.01(H) 0.00 - 0.00 K/uL 04/11/2025 1:27 AM EST [facility] Blood Venipuncture / Unknown 04/11/2025 1:20 AM EST 04/11/2025 1:23 AM EST Narrative [facility] - 04/11/2025 1:27 AM [...] MD LAB BLOOD ORDERABLES Final Resu lt [facility] [address] [place] [address] * hCG, quantitative, (04/11/2025 1:20 AM EST) HCG Serum Quant 133 mIU/mL 1:58 AM EST [facility] Comment: Results of the [...] MD LAB BLOOD ORDERABLES Final Resu lt [facility] [address] [place] [address] * (ABNORMAL) Comprehensive metabolic panel (04/11/2025 1:20 AM EST) Only the most recent of2 resultswithin the time period is included. Sodium 142 136 - 145 meq/L 04/11/2025 1:58 AM [facility] Potassium 3.1(L) 3.5 - 5.1 meq/L 04/11/2025 1:58 AM EST [facility] Chloride 105 98 - 107 meq/L 04/11/2025 1:58 AM EST [facility] CO2 28 21 - 32 meq/L 04/11/2025 1:58 AM EST [facility] Calcium 9.0 8.5 - 10.1 mg/dL 04/11/2025 1:58 AM EST [facility] Glucose 105(H) 74 - 100 mg/dL 04/11/2025 1:58 AM EST [facility] BUN 11 7 - 18 mg/dL 04/11/2025 1:58 AM EST [facility] Creatinine 0.61 0.55 - 1.10 mg/dL 04/11/2025 1:58 AM [facility] BUN/Creatinine 18 04/11/2025 1:58 AM [facility] Albumin 3.9 3.4 - 5.0 g/dL 04/11/2025 1:58 AM [facility] Alkaline Phosphatase 78 46 - 116 U/L 04/11/2025 1:58 AM [facility] ALT 12 12 - 78 U/L 04/11/2025 1:58 AM [facility] AST 11(L) 15 - 37 U/L 04/11/2025 1:58 AM [facility] Total Bilirubin 0.4 0.2 - 1.0 mg/dL 04/11/2025 1:58 AM [facility] Protein, Total 7.1 6.4 - 8.2 gm/dL 04/11/2025 1:58 AM [facility] Anion Gap 12 11 - 04/11/2025 1:58 AM [facility] A/G Ratio 1.2 04/11/2025 1:58 AM [facility] Globulin 3.2 g/dL 04/11/2025 1:58 AM [facility] Osmolality Calc 282.9 mOsm/kg 1:58 AM [facility] eGFR (mL/min/1.73m2) >60 >=60 mL/min/1.7 3m2 04/11/2025 1:58 AM [facility] Comment:ESTIMATED GFR IS NOT ACCURATE CREATININE CLEARANCE IN PREDICTING GLOMERULAR FILTRATION RATE. ESTIMATED GFR IS NOT APPLICABLE FOR DIALYSIS PATIENTS. Blood Venipuncture / Unknown 04/11/2025 1:20 AM EST 04/11/2025 1:23 AM EST us Farzad Stilse MD LAB BLOOD ORDERABLES Final Resu lt [facility] [address] [place] [address] * (ABNORMAL) Urinalysis w/Microscopic (04/05/2025 11:04 PM EST) Color, UA Yellow 04/05/2025 11:43 PM [facility] Clarity, UA Clear 04/05/2025 11:43 PM [facility] Specific [place], UA 1.025 1.002 - 1.030 04/05/2025 11:43 PM [facility] pH, UA 6.0 5.0 - 9.0 04/05/2025 11:43 PM [facility] Leukocytes, UA Negative Negative 04/05/2025 11:43 PM [facility] Nitrite, UA Negative Negative 04/05/2025 11:43 PM [facility] Protein, UA 1+(A) Negative 04/05/2025 11:43 PM [facility] Glucose, UA Negative Negative 04/05/2025 11:43 PM [facility] Ketones, UA Trace(A) Negative 04/05/2025 11:43 PM [facility] Urobilinogen, UA 0.2 mg/dL Normal 04/05/2025 11:43 PM [facility] Bilirubin, UA Negative Negative 04/05/2025 11:43 PM [facility] Blood, UA 3+(A) Negative 04/05/2025 11:43 PM [facility] RBC, UA 5-10(A) None Seen, Rare /HPF 04/05/2025 11:43 PM [facility] WBC, UA 0-5 None Seen, Occasional , 0-5 /HPF 04/05/2025 11:43 PM [facility] Bacteria, UA 2+(A) None Seen 04/05/2025 11:43 PM [facility] Mucus 1+(A) Trace 04/05/2025 11:43 PM [facility] SQUAMOUS EPITHELIAL 0-5(A) None Seen, Rare /HPF 04/05/2025 11:43 PM [facility] Ca Oxalate [place], UA 2+(A) (none) 04/05/2025 11:43 PM [facility] Specimen Source Urine, Clean Catch 04/05/2025 11:43 PM [facility] Urine URINE SPECIMEN COLLECTION, CLEAN CATCH / Unknown 04/05/2025 11:04 PM EST 04/05/2025 11:04 PM EST us Keke Gar MD URINE ORDERABLES Final Re sult [facility] [address] [place] [address], [facility] [phone] from Last 3 Months Insurance [facility] [phone] Care Teams Laundry Superintendent Relationship Specialty Start Date End Date Sarika Moyer, [employer] [address] [place] [address] PCP - General Nurse Practitioner 04/05/25
--- OUTSIDE RECORDS SUMMARY | 2025-04-15 08:51 | XMS_ITS | Referral Summary ---
Author Organization [employer] ([place], [place], [place], [place], [place]) Address [address] [place] [address] Care Team Providers Care Electrical Research Engineer Name Role Phone Sarika Moyer GLOVE SEWER Primary Care Provider + Encounters Date Type Department Care Team Description 04/10/2025 11:39 PM EST - 04/11/2025 5:09 AM EST Emergency [facility] Emergency Department [address] [place] [phone] Farzad Stiles MD Ectopic (Primary Dx); Hypokalemia Discharge Disposition: Home or Self Care 04/10/2025 Travel 04/05/2025 10:43 PM EST - 04/06/2025 2:31 AM EST Emergency [facility] Emergency Department [address] [place] [phone] Keke Gar MD Ectopic (Primary [...] sac. IMPRESSION: Authenticated and Farzad Stiles MD [facility] ORDERABLES Edited Result - Final * (ABNORMAL) CBC with Auto Diff (04/11/2025 1:20 AM EST) Only the most recent of2 resultswithin the time period is included. WBC 7.3 4.8 - 10.8 K/ L 04/11/2025 1:27 AM [facility] RBC 4.32 3.50 - 5.20 M/ L 04/11/2025 1:27 AM [facility] Hemoglobin 12.7 11.7 - 15.8 GM/DL 04/11/2025 1:27 AM [facility] Hematocrit 37.8 35.0 - 47.0 % 04/11/2025 1:27 AM [facility] MCV 88 81 - 101 fL 04/11/2025 1:27 AM [facility] MCH 29.4 27.0 - 34.0 pg 04/11/2025 1:27 AM [facility] MCHC 33.6 32.0 - 36.0 GM/DL 04/11/2025 1:27 AM [facility] RDW 13.2 11.5 - 14.5 % 04/11/2025 1:27 AM [facility] Platelets 432(H) 150 - 400 K/CU MM 04/11/2025 1:27 AM [facility] MPV 9.1(L) 9.4 - 12.4 fL 04/11/2025 1:27 AM [facility] Nucleated Red Blood Cell 0.0 0 - 0.2 % 04/11/2025 1:27 AM [facility] % Neutros 55 37 - 80 % 04/11/2025 1:27 AM [facility] % Lymphs 34 10 - 50 % 04/11/2025 1:27 AM [facility] % Monos 9 5 - 13 % 04/11/2025 1:27 AM [facility] % Eos 1.5 0.0 - 7.0 % 04/11/2025 1:27 AM [facility] % Baso 1 0 - 3 % 04/11/2025 1:27 AM [facility] NRBC Absolute <0.01 0 - 0.012 K/ul 04/11/2025 1:27 AM [facility] # Neutros 4.04 2.00 - 6.90 K/ L 04/11/2025 1:27 AM [facility] # Lymphs 2.51 0.60 - 3.40 K/ L 04/11/2025 1:27 AM [facility] # Monos 0.62 0.00 - 0.90 K/ L 04/11/2025 1:27 AM [facility] # Eos 0.11 0.00 - 0.70 K/ L 04/11/2025 1:27 AM [facility] # Baso 0.04 0.00 - 0.20 K/ L 04/11/2025 1:27 AM [facility] % Imm Grans 0.10 % 04/11/2025 1:27 AM [facility] # IG 0.01(H) 0.00 - 0.00 K/uL 04/11/2025 1:27 AM [facility] Blood Venipuncture / Unknown 04/11/2025 1:20 AM EST 04/11/2025 1:23 AM EST Narrative [facility] - 04/11/2025 1:27 AM [...] ORDERABLES Final Resu lt Performing Organization Address City/[facility] Co de Phone Number [facility] [address] [phone] * hCG, quantitative, (04/11/2025 1:20 AM EST) HCG Serum Quant 133 mIU/mL 1:58 AM EST [facility] Comment: Results of the [...] ORDERABLES Final Resu lt Performing Organization Address [facility]/ZIP Co de Phone Number [facility] [address] [phone] * (ABNORMAL) Comprehensive metabolic panel (04/11/2025 1:20 AM EST) Only the most recent of2 resultswithin the time period is included. Sodium 142 136 - 145 meq/L 04/11/2025 1:58 AM [facility] Potassium 3.1(L) 3.5 - 5.1 meq/L 04/11/2025 1:58 AM [facility] Chloride 105 98 - 107 meq/L 04/11/2025 1:58 AM [facility] CO2 28 21 - 32 meq/L 04/11/2025 1:58 AM [facility] Calcium 9.0 8.5 - 10.1 mg/dL 04/11/2025 1:58 AM [facility] Glucose 105(H) 74 - 100 mg/dL 04/11/2025 1:58 AM [facility] BUN 11 7 - 18 mg/dL 04/11/2025 1:58 AM [facility] Creatinine 0.61 0.55 - 1.10 mg/dL 04/11/2025 1:58 AM [facility] BUN/Creatinine 18 04/11/2025 1:58 AM [facility] Albumin 3.9 3.4 - 5.0 g/dL 04/11/2025 1:58 AM [facility] Alkaline Phosphatase 78 46 - 116 U/L 04/11/2025 1:58 AM [facility] ALT 12 12 - 78 U/L 04/11/2025 1:58 AM [facility] AST 11(L) 15 - 37 U/L 04/11/2025 1:58 AM [facility] Total Bilirubin 0.4 0.2 - 1.0 mg/dL 04/11/2025 1:58 AM [facility] Protein, Total 7.1 6.4 - 8.2 gm/dL 04/11/2025 1:58 AM [facility] Anion Gap 12 11 - 22 04/11/2025 1:58 AM [facility] A/G Ratio 1.2 04/11/2025 1:58 AM [facility] Globulin 3.2 g/dL 04/11/2025 1:58 AM EST [facility] Osmolality Calc 282.9 mOsm/kg 1:58 AM [facility] eGFR (mL/min/1.73m2) >60 >=60 mL/min/1.7 3m2 04/11/2025 1:58 AM EST [facility] Comment:ESTIMATED GFR IS NOT ACCURATE CREATININE CLEARANCE IN PREDICTING GLOMERULAR FILTRATION RATE. ESTIMATED GFR IS NOT APPLICABLE FOR DIALYSIS PATIENTS. Blood Venipuncture / Unknown 04/11/2025 1:20 AM EST 04/11/2025 1:23 AM EST us Farzad Stiles MD LAB BLOOD ORDERABLES Final Resu lt [facility] [address] [place] [address], [facility] [phone] * (ABNORMAL) Urinalysis w/Microscopic (04/05/2025 11:04 PM EST) Color, UA Yellow 04/05/2025 11:43 PM [facility] Clarity, UA Clear 04/05/2025 11:43 PM [facility] Specific [place], UA 1.025 1.002 - 1.030 04/05/2025 11:43 PM [facility] pH, UA 6.0 5.0 - 9.0 04/05/2025 11:43 PM [facility] Leukocytes, UA Negative Negative 04/05/2025 11:43 PM [facility] Nitrite, UA Negative Negative 04/05/2025 11:43 PM [facility] Protein, UA 1+(A) Negative 04/05/2025 11:43 PM [facility] Glucose, UA Negative Negative 04/05/2025 11:43 PM [facility] Ketones, UA Trace(A) Negative 04/05/2025 11:43 PM [facility] Urobilinogen, UA 0.2 mg/dL Normal 04/05/2025 11:43 PM EST [facility] Bilirubin, UA Negative Negative 04/05/2025 11:43 PM EST [facility] Blood, UA 3+(A) Negative 04/05/2025 11:43 PM EST [facility] RBC, UA 5-10(A) None Seen, Rare /HPF 04/05/2025 11:43 PM EST [facility] WBC, UA 0-5 None Seen, Occasional , 0-5 /HPF 04/05/2025 11:43 PM EST [facility] Bacteria, UA 2+(A) None Seen 04/05/2025 11:43 PM EST [facility] Mucus 1+(A) Trace 04/05/2025 11:43 PM EST [facility] SQUAMOUS EPITHELIAL 0-5(A) None Seen, Rare /HPF 04/05/2025 11:43 PM EST [facility] Ca Oxalate [place], UA 2+(A) (none) 04/05/2025 11:43 PM EST [facility] Specimen Source Urine, Clean Catch 04/05/2025 11:43 PM EST [facility] Urine URINE SPECIMEN COLLECTION, CLEAN CATCH / Unknown 04/05/2025 11:04 PM EST 04/05/2025 11:04 PM EST us Keke Gar MD URINE ORDERABLES Final Re sult [facility] [address] [phone] from Last 3 Months Insurance [facility] [employer] [place] Care Teams Electrical Research Engineer Relationship Specialty Start Date End Date Sarika Moyer, GLOVE SEWER [address] [place], [place] [id number] PCP - General Nurse Practitioner 04/05/25
--- OUTSIDE RECORDS SUMMARY | 2025-04-15 08:51 | XMS_ITS | Encounter Summary ---
Author Organization Healthcare Address [address] [place] [address] Care Team Providers Care Vacuum Extractor Operator Name Role Phone Sarika Moyer SIGN HANGER Primary Care Provider + Encounter Details Date Type Department Care Team ([facility] st Contact Info) Description 03/17/2025 Telephone Obstetrics & Gynecology [address] [place] [address] Chiki Cardenas MD [address] [place] [address] Social History Tobacco Use Types [...] on filedocumented in this encounter Care Teams Vacuum Extractor Operator Relationship Specialty Start Date End Date Sarika Moyer APRN [address] [place] [address] PCP - General 10/14/20 documented as of this encounter
== END 2025-04-15 23:59 | disposition home or self-care (01) ==
LOC: LAB 08:46
PROVIDERS: PCP Nurse Practitioner Family; Visit Provider Obstetrics & Gynecology
DX: O00.90 Unspecified ectopic pregnancy without intrauterine pregnancy (principal); Z3A.00 Weeks of gestation of pregnancy not specified
CPT/HCPCS: 36415; 84702

== ENCOUNTER 2025-04-17 09:58 | Emergency (ER) | payer OTHER, SELFPAY ==
[2025-04-17 10:04] VITALS: BP 156/94; PULSE 113; O2SAT 96
[2025-04-17 10:08] VITALS: BP 156/94; PULSE 82; RESP 18; TEMP 36.8; O2SAT 99; BMI 18.6
--- NOTE | 2025-04-17 10:13 | HMH.EDGENADL ---
Discharge Plan Disposition Patient Disposition: Home, Self-Care Prescriptions Prescriptions: New cephalexin 500 mg capsule 500 mg PO Q6H 5 Days Qty: 20 0RF Referrals Follow up/Referrals: Sarika Moyer APRN [Primary Care Provider, Medical] - See instructions Activity Restrictions/Add. Instructions Additional Instructions/Restrictions: Your beta-hCG continues to downtrend appropriately. I encourage you to follow-up with your DIRECTOR OF TESTING physician as scheduled. Your urine does signs of a urinary tract infection. Take the antibiotics as prescribed. If you develop any new or worsening symptoms, such as worsening abdominal pain, back pain, return to the emergency department for evaluation. Clinical Impressions Clinical Impression: Urinary tract infection, Vaginal bleeding Instructions Patient Instructions: DI for Urinary Tract Infection (UTI), DI for Urinary Tract Infection in Children Print Language Print Language: Greek Discharge ED Provider: Andrea Lucio Adult HPI General Chief complaint: Urogenital-Female Stated complaint: Eptopic and heavy bleeding Time Seen by Provider: 04/17/25 10:07 History of Present Illness HPI narrative: Ivon Jeter is a 24-year-old female with a history of recently diagnosed ectopic status post methotrexate x 2, anxiety who presents to the emergency department for complaints of vaginal bleeding. Patient states that last night, she had more bright red blood in the toilet bowl with vaginal bleeding as well as shedding of her uterine lining that she had previously had. She reports a brief episode of sharp lower abdominal pain but denies any currently or since. She states that she is going through a pad approximately every 2 hours. She has not contacted her OB physicians as of this morning. Patient is worried her beta-hCG is going up again but had previously been trending downward consistently. Related Data Previous Rx's ?Medication ?Instructions ?Recorded cephalexin 500 mg capsule 500 mg PO Q6H 5 days #20 caps 04/17/25 Allergies Allergy/AdvReac Type Severity Reaction Status Date / Time escitalopram (From Lexapro) Allergy Severe Anaphylaxis Verified 04/16/25 08:55 dextromethorphan Allergy Hyper Verified 04/16/25 08:55 activity guaifenesin (From Robitussin) Allergy hyper Verified 04/16/25 08:55 activity [facility] Disclaimer: The information contained in this section may have been updated after the patient was seen, as this information can be updated by other users. Medical History No significant medical problems Surgical History History of tonsillectomy and adenoidectomy H/O oral surgery Family History Other No significant family history Social History Smoking Status: Current every day smoker tobacco type: e-cigarettes alcohol intake: never current occupational status: employed Travel in the last 8 weeks?: None household members: spouse Have you lived/traveled outside US in past 30 days?: No Contact w/someone who lives/traveled outside US past 30 days?: No Exposure to someone with infectious disease in past 14 days?: No Do you have a fever (greater than 100.4 F or 38 C)?: No Have you tested positive for COVID-19?: No Exposed to someone with COVID-19 in past 14 days?: No Do you have a sore throat?: No Do you have a cough?: No Do you have any weakness?: No Do you have any diarrhea?: No Are you experiencing any unusual bleeding?: No Do you have any muscle aches/pain?: No Do you have any abdominal pain?: No Are you experiencing loss of taste or smell?: No Other Medical History Have you received the Pneumonia Vaccine: No ROS Obtained: Yes Systems reviewed as appropriate & no additional complaints except as documented Physical Exam General General appearance: alert, in no apparent distress and anxious Head Head exam: atraumatic Eye Eye exam: Present normal appearance ENT ENT exam: Present normal external ear exam Neck Neck exam: Present full ROM Chest Chest inspection: Present symmetric chest wall rise Respiratory Respiratory exam: Present normal lung sounds bilaterally; Absent respiratory distress Cardiovascular Cardiovascular exam: Present regular rate and normal rhythm Abdominal Exam Abdominal exam: Present soft; Absent distention, tenderness, guarding, rebound or rigidity Extremities Exam Extremities exam: Present normal inspection Back Exam Back exam: Present normal inspection Neurological Exam Neurological exam: Present alert and oriented X3 Psychiatric Psychiatric exam: Present normal affect Skin Skin exam: Present warm and dry Medical Decision Making Medical Records Screening: Per USPSTF and CDC recommendations, given the prevalence of disease in our region, it is our hospital?s policy to screen for HIV and viral Hepatitis for all patients aged 18 and over and those with ongoing risk factors. Lucho Inquiry Pt receiving controlled substance: No Vital Signs: 04/17/25 10:04 04/17/25 10:08 04/17/25 11:06 Temperature 98.3 F Temperature Source Oral Pulse Rate 113 H 110 H Pulse Rate [Radial] 82 Respiratory Rate 18 Blood Pressure 156/94 H 110/77 Blood Pressure [Right Arm] 156/94 H Blood Pressure Mean 90 Blood Pressure Mean [Right Arm] 114 Blood Pressure Source [Right Arm] Automatic Cuff Blood Pressure Position [Right Arm] Sitting 02 Sat by Pulse Oximetry 96 99 98 Oxygen Delivery Method Room Air Room Air Room Air Lab Data Lab Results 04/17/25 10:05: Urine Color Red, Urine Appearance Sl cloudy, Urine pH 7.0, Ur Specific [place] <= 1.005, Urine Protein 3+ A, Urine Glucose (UA) Negative, Urine Ketones 1+, Urine Blood 3+ A, Urine Nitrate Positive A, Urine Bilirubin 1+ A, Urine Urobilinogen 1.0, Ur Leukocyte Esterase 1+ A, Urine RBC 20-50, Urine WBC 5-10, Ur Squamous Epith Cells Occasional, Urine Bacteria 2+ 04/17/25 10:30: WBC 5.4, RBC 4.38, Hgb 12.9, Hct 38.3, MCV 87.4, MCH 29.5, MCHC 33.7, RDW 13.1, Plt Count 438 H, MPV 9.2, Neut % (Auto) 62.1, Lymph % (Auto) 28.7, George % (Auto) 7.3, Eos % (Auto) 1.3, Baso % (Auto) 0.4, Neut # (Auto) 3.3, Lymph # (Auto) 1.5, George # (Auto) 0.4, Eos # (Auto) 0.1, Baso # (Auto) 0.0, Sodium 136, Potassium 3.6, Chloride 102, Carbon Dioxide 23, Anion Gap 14.6, BUN 8, Creatinine 0.50 L, Estimated Creat Clear 109, Estimated GFR 154, Est GFR ( Amer) 187, Glucose 85, Calcium 9.6, HCG, Quant 11 H 04/17/25 10:30 04/17/25 10:30 Orders (Tests/Meds): ORDERS Category Date Time Status BMP [Basic Metabolic Panel] Stat Lab 04/17/25 10:30 Completed Beta HCG, Quant [HCG,Quantitative] Stat Lab 04/17/25 10:30 Completed CBC w/Auto Diff [Complete Blood Count Auto Diff] Stat Lab 04/17/25 10:30 Completed UA [Urinalysis and Microscopic] Stat Lab 04/17/25 10:05 Completed Urine Culture Stat Micro 04/17/25 10:05 Received Medical Decision Narrative: Ivon Jeter is a 24-year-old female with a history of recently diagnosed ectopic status post methotrexate x 2, anxiety who presents to the emergency department for complaints of vaginal bleeding. Patient states that last night, she had more bright red blood in the toilet bowl with vaginal bleeding as well as shedding of her uterine lining that she had previously had. She reports a brief episode of sharp lower abdominal pain but denies any currently or since. She states that she is going through a pad approximately every 2 hours. She has not contacted her OB physicians as of this morning. Patient is worried her beta-hCG is going up again but had previously been trending downward consistently. On arrival, patient has mildly tachycardic but hemodynamically stable. Afebrile. Oxygen saturation within normal limits. Physical exam, as stated above, revealed an anxious appearing female in no distress. Abdomen is soft, nontender and nondistended. The remainder of her exam is gross unremarkable. Review shows the patient has had multiple visits to the emergency department for vaginal bleeding and has had 2 doses of methotrexate, most recently on the 11 of this month for an ectopic . She is followed by Dr. Lee with DIRECTOR OF TESTING. Patient is worried that her beta-hCG is rising again given that she had increased vaginal bleeding overnight. I have low concern for ruptured ectopic given patient reassuring abdominal exam and lack of pain. Will obtain basic blood work, CBC, BMP and quantitative beta-hCG as well as urinalysis. Laboratory studies are unremarkable nonactionable. No anemia, platelets unremarkable. Beta-hCG is continuing to downtrend appropriately and is 11 today it was 26 on the 13th and 104 on the 10th. Patient's urine shows blood and positive nitrates and leukocyte esterase with 20-50 RBCs, likely from vaginal bleeding as well as 5-10 white blood cells. 2+ bacteria present. This could represent urinary tract affection as previous urine studies have not been nitrate or leukocyte Estrace positive. On reassessment, patient is resting comfortably and has not had any additional or or worsening symptoms. I feel that her beta-hCG is downtrending appropriately and likely represents a resolving ectopic . Will prescribe cephalexin for urinary tract infection. I did encourage her to follow-up with Dr. Lee with DIRECTOR OF TESTING. Return precautions were given. All questions were answered. She demonstrated understanding and was in agreement this plan. She was then discharged from the emergency department in stable condition Critical Care Critical Care Time Critical Care Time: No
[2025-04-17 10:15] LABS: Microscopic, Urine URINE MICROSCOPIC (MICROSCOPIC)
[2025-04-17 10:21] LABS: Color,Urine RED (Yellow); Glucose,Urine (UA) Negative (Negative); Ketones,Urine 1+ (Negative); Leukocyte Esterase,Urine 1+ (Negative); PH,Urine 7.0 (5.0-8.5); Protein,Urine 3+ (Negative); Specific Gravity, Urine <= 1.005 (1.005-1.030); Urobilinogen,Urine 1.0 EU/dl (0.2)
[2025-04-17 10:24] LABS: Bilirubin,Urine 1+ (Negative)
[2025-04-17 10:30] LABS: Bacteria,Urine 2+ /lpf; RBC,Urine 20-50 #/hpf (0-3); Squamous Epithelial Cell,Urine Occasional #/hpf (0-5)
[2025-04-17 10:42] LABS: Hematocrit 38.3 % (37.0-47.0); Hemoglobin 12.9 g/dL (12.2-16.2); Immature Granulocytes % 0.2 %; Mean Corpuscular HGB Conc 33.7 g/dL (31.8-35.4); Mean Corpuscular Hemoglobin 29.5 pg (27.0-31.2); Mean Corpuscular Volume 87.4 fl (81-99); Nucleated Red Blood Cells % 0 %; Platelet Count 438 K/mm3 (142-424); Red Blood Count 4.38 M/mm3 (4.20-5.40); Red Cell Distribution Width-SD 40.8 fL; White Blood Count 5.4 K/mm3 (4.8-10.8)
[2025-04-17 10:50] LABS: Anion Gap 14.6 mEq/L (5-15); Blood Urea Nitrogen 8 mg/dl (7-17); Calcium 9.6 mg/dl (8.4-10.2); Carbon Dioxide 23 mmol/L (22.0-30.0); Chloride 102 mmol/L (98-107); Creatinine Clearance Estimated 109 mL/min (50-200); Creatinine,Serum 0.50 mg/dl (0.52-1.04); Estimated Glomerular Filt Rate 154 ml/min (>60); GFR (African American) 187 ML/MIN (>60); Glucose 85 mg/dl (74-100); Potassium 3.6 mmoL/L (3.5-5.1); Sodium 136 mmol/L (136-145)
[2025-04-17 11:06] VITALS: BP 110/77; PULSE 110; O2SAT 98
[2025-04-17 11:57] VITALS: BP 110/77; PULSE 110; RESP 18; TEMP 36.8; O2SAT 98
--- NOTE | 2025-04-20 08:48 | PC.NURSE ---
Preliminary urine culture reviewed by Dr. De Oliveira. No change in treatment plan at this time.
--- NOTE | 2025-04-21 08:21 | PC.NURSE ---
Urine culture results reviewed by Dr. Lucio. No new orders received.
== END 2025-04-17 11:58 | disposition home or self-care (01) ==
PROVIDERS: Emergency Provider Student in an Organized Health Care Education/Training Program; PCP Nurse Practitioner Family
DX: N93.9 Abnormal uterine and vaginal bleeding, unspecified (principal)
CPT/HCPCS: 36415; 80048; 81001; 84702; 85025; 87086; 87088; 87186; 99284

== ENCOUNTER 2025-04-21 08:12 | Outpatient (CLI) | payer OTHER, SELFPAY ==
--- OUTSIDE RECORDS SUMMARY | 2025-03-27 19:35 | XMS_ITS | Encounter Summary ---
Author Organization Healthcare Address [address] [place] [address] Care Team Providers Care Director Of Nursing Name Role Phone Sarika Moyer ISAIAH Primary Care Provider + Reason for Visit * Reason Comments Pelvic Pain Encounter Details Date Type Department Care Team (Late st Contact Info) Description 03/27/2025 8:35 PM EDT - 03/28/2025 1:22 AM EDT Emergency [facility] Emergency Department [address] [place] [address] Rose Cortes MD [address] [place] [address] of unknown anatomic location (Primary Dx) Discharge Disposition: Home or Self Care Social History Tobacco Use Types Packs/Day Years Used Date Smoking Tobacco: Passive Smo ke Exposure - Never Smoker Alcohol Use Standard Drinks/Week Comments Yes 0 (1 standard drink = 0.6 oz pure alcohol) Alcoholic Drinks/day: Occasional alcohol use Comments Yes Sex and Gender Information Value Date Recorded Sex Assigned at Not on file Legal Sex Female 7:54 PM EDT Gender Identity Not on file Sexual Orientation Not on file documented as of this encounter Last Filed Vital Signs Vital Sign Reading Time Taken Comments Blood Pressure 116/80 03/28/2025 1:20 AM EDT Pulse 74 03/28/2025 1:20 AM EDT Temperature 36.8 C (98.2 F) 03/28/2025 1:20 AM EDT Respiratory Rate 16 03/28/2025 1:20 AM EDT Oxygen Saturation 97% 03/28/2025 1:20 AM EDT Inhaled Oxygen Concentration - - Weight 41.6 kg (91 lb 11.4 oz) 03/27/2025 7:43 P M EDT Height - - Body Mass Index - - documented in this encounter Functional Status * Calculated C-SSRS Risk Score (Lifetime/Recent) Answer Date of Assessment Author No Risk Indicated 03/28/2025 12:11 AM EDT John Fu RN * Question Answer Date of Assessment Author 1. Wish to be (Past 1 Month) No 12:11 AM EDT John Foss RN 2. Non-Specific Active Suici olegario Thoughts (Past 1 Month) No 03/28/2025 12:11 AM EDT Di Foss RN 6. Suicidal Behavior (Lifetime) No 12:11 AM EDT John Foss RN documented as of this encounter Discharge Instructions * Discharge Instructions* Larry Enrique APRN - 03/28/2025 1:16 AM EDT It is recommended that you follow-up with your primary care specialty care providers for further outpatient evaluation and treatment recommendations. You if you choose to do so, you may also follow-up with [facility] services or further outpatient evaluation and treatment recommendations. Rest and recover as able. Please increase your water intake. [place] use of warm and/or cold compresses. Primary pain control should be accomplished with OTC Tylenol and/or ibuprofen, which can be alternated every 4-6 hours as needed for pain. It is important for you to follow-up with primary care provider for re- evaluation and recheck. Return for any acute/severe worsening. Of course, you may return to the emergency department any time for new or concerning symptoms. We are always open and available to you. All of your medical information here is available to you via the [email or web address] Internet portal. Please make sure that you are registered for access to this. documented in this encounter Miscellaneous Notes * Consults - Ivon Marmolejo MD - 03/28/2025 1:16 AM EDTAssociated Order(s): Consult to Gynecology Gynecology Consult Note Patient Name: Ivon BARROS: 2000 Consult to Gynecology Consult performed by: Ivon Marmolejo MD Consult ordered by: Ivana Loredo PA Subjective Subjective History of Present Illness: Ivon Jeter is a 24 y.o. with PUL being followed at [facility] who presents for RLQ pain. Patient reports that this is her first . She was having her beta hCG trended for pregnancyof unknown location, with the trend showing an inappropriate rise. Per [facility] records reviewed by ED MICHAEL, on 03/25/25 beta hCG was 568, down from 701. At this time patient received a dose of IM methotrexate. Yesterday morning/afternoon, patient reports that she had increased right lower quadrant/pelvic pain with associated nausea. At [facility] yesterday, beta hCG was found to be decreased at 543.Per patient, an ultrasound was performed showing a 1.5 cm mass on the right side. Currently she reports continued pain in the RLQ, although reports it is less intense now. Reports some mild nausea, but also reports she has not eaten anything significant over the past 3 days due toher anxiety regarding the PUL. OBGYN History: OB History 1 Para Term AB Living SAB IAB Ectopic Multiple Live Births Prior x 0 Prior CS x 0 Past Medical History: Past Medical History[1] Past Surgical History: Surgical History[2] Family History: Family History[3] Social History: Social History[4] Medications: No current outpatient medications Allergies: Allergies[5] Review of Systems: Negative except as per HPI. Objective Objective Vital Signs: Visit Vitals BP 116/80 Pulse 74 Temp 36.8 ??C (98.2 ??F) Resp 16 There is no height or weight on file to calculate BMI. Weight: Wt Readings from Last 3 Encounters: 03/27/25 41.6 kg (91 lb 11.4 oz) 01/26/20 60 kg (132 lb 4.4 oz) (66%, Z= 0.41)* * Growth percentiles are based on CDC (Girls, 2-20 Years) data. Physical Exam Constitutional: General: She is not in acute distress. Appearance: Normal appearance. She is normal weight. She is not ill-appearing or toxic-appearing. Genitourinary: Genitourinary Comments: Deferred. Cardiovascular: Rate and Rhythm: Normal rate. Pulmonary: Effort: Pulmonary effort is normal. Abdominal: General: Abdomen is flat. There is no distension. Palpations: Abdomen is soft. There is no mass. Tenderness: There is abdominal tenderness (Mild generalized tenderness to deep palpation.). There is no guarding or rebound. Musculoskeletal: Right lower leg: No edema. Left lower leg: No edema. Neurological: General: No focal deficit present. Mental Status: She is alert and oriented to person, place, and time. Skin: General: Skin is warm and dry. Psychiatric: Mood and Affect: Mood normal. Behavior: Behavior normal. Thought Content: Thought content normal. Comments: Anxious demeanor. Results: Lab Results Component Value Date WBC 11.76 (H) 03/27/2025 HGB 14.2 03/27/2025 HCT 39.9 03/27/2025 MCV 83 03/27/2025 PLT 523 (H) 03/27/2025 NEUTROABS 8.17 (H) 03/27/2025 GLUCOSE 96 03/27/2025 BUN 11 03/27/2025 CREATININE 0.48 (L) 03/27/2025 NA 136 03/27/2025 K 3.1 (L) 03/27/2025 CL 100 03/27/2025 CO2 20 (L) 03/27/2025 CALCIUM 9.8 03/27/2025 Imaging: US Pelvis Transvaginal Result Date: 03/27/2025 Limited examination for reasons described above. No intrauterine gestation identified. Recommend correlation with serial beta hCG. Unremarkable sonographic appearance of the right ovary without definite evidence for ectopic gestation. The left adnexa was not scanned as patient terminated exam early. CRITICAL RESULT: No. COMMUNICATION: Per this written report. Preliminary report signed by Urvashi Restrepo MD on 03/27/2025 11:57 PM By electronically signing this report, I, the attending physician, attest that I have personally reviewed the images/data for the above examination(s) and agree withthe final edited report. Drafted by Urvashi Restrepo MD on 03/27/2025 11:50 PM Final report signed by Lelia Lacy MD on 03/27/2025 11:57 PM Assessment/Plan Assessment / Plan Ivon Jeter is a 24 y.o. with PUL with inappropriately rising beta hCG now s/p single dose ofmethotrexate on 03/25/25 who presents for RLQ pain. # of Unknown Location # RLQ Pain - Patient with PUL being followed at [facility] - Beta hCG trend shown to be inappropriately rising > 03/17: 258 > 03/19: 276 > 03/20: 370 > 03/21: 342 > 03/24: 701 > 03/25: 568 -- Dose of methotrexate 03/25 -- > 03/27: 543 - Pt with increased RLQ pain 03/27 prompting her to present first to [facility] where beta was noted to have decreased slightly from 03/25. TVUS not directly reviewed, however records indicatea 1.5 cm unknown structure was seen in the R adnexa. - Patient was discharged home from [facility], but due to persistent pain presented to - Work-up at : > Beta 626 (although unable to directly compare across institutions). TVUS > TVUS: R ovary measuring 3.9 x 1.9 2.8 cm without cyst or mass. No free fluid in the pelvis. > Hct 40 - Pt hemodynamically stable with normal vital signs - Abdominal exam benign Recommendations: - Low concern for ruptured ectopic at this time. - Discussed with patient that her beta hCG at [facility] today was encouraging. Explained that often times at day 4 following methotrexate administration you can see a small increase in beta hCG temporarily given the medication's delayed action. Explained that the most important next step isfor her to follow-up on day 7 (03/31) for repeat beta hCG to determine whether the methotrexatedose has been effective. Discussed that sometimes two doses of methotrexate is necessary. - Strict return precautions given should patient's pain increase, she develop nausea/vomiting, heavy vaginal bleeding. Dispo: stable for discharge home from a MEDICAL OFFICE SCHEDULER standpoint. Thank you for including us in the care of this patient. This consult was staffed with Dr. Bowers. Please message on-call MEDICAL OFFICE SCHEDULER resident via [employer] Secure Chat or page [phone] (M-F 6a-6p) or [phone] (nights/weekends) for questions or concerns regarding this patient's care. Ivon Marmolejo MD PGY3 Obstetrics and Gynecology [1] Past Medical History: Diagnosis Date Other specified health status No pertinent past medical history [2] Past Surgical History: Procedure Laterality Date DENTAL SURGERY N/A Dental surgery from [facility] TONSILLECTOMY N/A Tonsillectomy from [facility] [3] Family History Problem Relation Name Age of Onset Addiction problem Father Hypertension Mother Hypertension Sibling Kidney failure Mother [4] Social History Socioeconomic History Marital status: Tobacco Use Smoking status: Passive Smoke Exposure - Never Smoker Substance and Sexual Activity Alcohol use: Yes Comment: Alcoholic Drinks/day: Occasional alcohol use Social History Narrative Lives with grandparent(s) Currently in school Daily caffeine consumption Electronic cigarette use [5] Allergies Allergen Reactions Lexapro [Escitalopram] Anaphylaxis Robitussin Dm Max Day-Night Anxiety Cosigned by Eric Bowers MD at 03/29/2025 4:17 PM EDT Associated attestation - Eric Bowers MD - 03/29/2025 4:17 PM EDT I discussed the case with the resident and agree with the findings and plan as documented. Eric Bowers MD Minimally Invasive Gynecologic Surgery * ED Provider Notes - Ivana Loredo PA - 03/27/2025 7:40 PM EDT -HPI Chief Complaint Patient presents with Pelvic Pain PIT NOTE Ivon Jeter is a 24 y.o. female who presents to the ED with Pelvic Pain. Pt was dx with diagnosed unruptured right sided ectopic , measuring 1.5cm, 3 days ago at OSH ED. Pt received a singular methotrexate injection during primary ED visit. Pt c/o severe right sided pelvic pain and associated nausea. Pt endorses vaginal bleeding before receiving methotrexate. Pt endorses increased anxiety for fear of rupture. Pt reports she presented to OSH ED again for persistent pain, Hcg today had dropped by 25 and US today showed no growth. Pt reports use of tylenol. Pt endorses this is pt's first . Pt denies fever, chills, vomiting, diarrhea, headache, dizziness, chest pain, SOA, and urinary symptoms. Medical records from [facility] reviewed: 03/26/2025 -- HCG trends recorded (03/17 -- 258, 03/19--276. 03/20--370. 03/21--342. 03/24--701. 03/25--568.), documented a 1gm Methotrexate given IM on 03/25/2025. 03/27/2025 -- TVUS with1.5cm unknown structure in the right adenxa, 03/27 -- HCG 543. History provided by: Patient convalescent sitter used: No Patient History Past Medical History[1] Surgical History[2] Family History[3] Social History[4] Allergies: Allergies[5] Physical Exam ED Triage Vitals [03/27/251942] Temp Heart Rate Resp BP 36.8 ??C (98.3 ??F) 90 16 (!) 130/95 SpO2 Temp Source Heart Rate Source Patient Position 99 % Oral -- Sitting BP Location FiO2 (%) Right arm -- Physical Exam Vitals and nursing note reviewed. Constitutional: General: She is not in acute distress. Appearance: Normal appearance. She is well-developed. She is not ill-appearing or diaphoretic. HENT: Head: Normocephalic and atraumatic. Right Ear: External ear normal. No drainage. Left Ear: External ear normal. No drainage. Nose: Nose normal. No rhinorrhea. Mouth/Throat: Mouth: Mucous membranes are moist. Pharynx: Oropharynx is clear. Eyes: General: Vision grossly intact. Right eye: No discharge. Left eye: No discharge. Extraocular Movements: Extraocular movements intact. Conjunctiva/sclera: Conjunctivae normal. Pupils: Pupils are equal, round, and reactive to light. Neck: Trachea: Trachea normal. Cardiovascular: Rate and Rhythm: Normal rate and regular rhythm. Heart sounds: Normal heart sounds. No murmur heard. No friction rub. No gallop. Pulmonary: Effort: Pulmonary effort is normal. No accessory muscle usage or respiratory distress. Breath sounds: Normal breath sounds. No stridor. No wheezing or rhonchi. Abdominal: General: Abdomen is flat. There is no distension. Palpations: Abdomen is soft. Tenderness: There is no abdominal tenderness. There is no guarding or rebound. Musculoskeletal: General: Normal range of motion. Cervical back: Normal range of motion and neck supple. No rigidity. Right lower leg: No edema. Left lower leg: No edema. Lymphadenopathy: Cervical: No cervical adenopathy. Skin: General: Skin is warm and dry. Capillary Refill: Capillary refill takes less than 2 seconds. Neurological: General: No focal deficit present. Mental Status: She is alert and oriented to person, place, and time. GCS: GCS eye subscore is 4. GCS verbal subscore is 5. GCS motor subscore is 6. Gait: Gait is intact. Gait normal. Psychiatric: Attention and Perception: Attention normal. Mood and Affect: Mood and affect normal. Speech: Speech normal. Behavior: Behavior normal. Behavior is cooperative. Thought Content: Thought content does not include homicidal or suicidal ideation. [place] Coma Scale Score: 15 ED Course & MDM -Assessment: Social Determinates of Health Risks (including Economic Stability, Education and level of understanding, Healthcare access and quality and concerning social factors): None identified on this visit - PIT Date/Time: 03/27/2025, 8:13 PM Entered by Taty Hernandez acting as scribe for Rose Stover MD. Attending Attestation: The documentation was recorded by Taty Hernandez acting as scribe in my presence at the time of the encounter and accurately reflects the service I personally performed. ED COURSE DDX: Based on history and physical exam, my differential diagnosis included ectopic , unknown location, anxiety, abdominal discomfort, hemoperitoneum. Ruling out the most morbid conditions drove my clinical assessment. Labs: Labs Reviewed COMPREHENSIVE METABOLIC PANEL, PLASMA - Abnormal Result Value Glucose, Plasma 96 BUN, Plasma 11 Creatinine, Plasma 0.48 (*) BUN/Creatinine Ratio 23 Sodium, Plasma 136 Potassium, Plasma 3.1 (*) Chloride, Plasma 100 CO2, Plasma 20 (*) Anion Gap 16 Total Calcium, Plasma 9.8 Total Protein 7.7 Albumin, Plasma 4.9 AST, Plasma 17 ALT, Plasma 8 (*) Alkaline Phosphatase, Plasma 102 Total Bilirubin, Plasma 1.3 (*) eGFRcr 137.5 CBC WITH AUTO DIFFERENTIAL - Abnormal WBC Count 11.76 (*) RBC Count 4.82 HGB 14.2 HCT 39.9 Platelet Count 523 (*) MCV 83 MCH 29.5 MCHC 35.6 (*) RDW 12.2 MPV 9.3 nRBC 0.0 Differential Type Automated Neutrophils % 71 Lymphocytes % 25 Monocytes % 4 Eosinophils % 0 Basophils % 0 Immature Granulocytes % 0 Neutrophils Absolute 8.17 (*) Lymphocytes Absolute 2.96 Monocytes Absolute 0.52 Eosinophils Absolute 0.03 Basophils Absolute 0.05 Immature Granulocytes Absolute 0.03 Narrative: Therapeutic decision making should be based on absolute values, rather than percentages. HCG, QUANTITATIVE - Abnormal hCG, Total Beta 626.2 (*) Narrative: Patients: Normal Range Premenopausal Female < 5 mIU/mL Male < 3 mIU/mL Postmenopausal Female < 8 mIU/mL The Carol Ele[employer]ys hCG+beta assay is standardized to the 4th IS for Chorionic Gonadotropin. The combination of the specific monoclonal antibodies used in this assay recognizes the holo-hormone, nicked forms of hCG, the Beta-core Fragment and the free beta-subunit. Elevated hCG concentrations not associated with are found in patients with gestational trophoblastic disease and choriocarcinoma as well as germ cell, ovarian, bladder, pancreas, stomach, lung and liver tumors. Performed by the Carol electrochemiluminescent immunoassay which is traceable to the 4th International Standard for hCG (NIBSC 75/589). Results obtained with different test methods or kits cannot be used interchangeably. HEPATITIS C ANTIBODY - ED W/REFLEX TO HCV QUANT PCR - Normal Hepatitis C Antibody Negative ED HIV 1/2 ANTIBODY/ANTIGEN SCREEN WITH REFLEX TO HIV I/II DIFFERENTIATION - Normal HIV 1 & 2 Antibody/Antigen Screen Non Reactive TYPE AND SCREEN ABO/Rh A Positive Antibody Screen Negative Specimen Expiration 03/30/2025 23:59 ED PROTOCOL HIV 1/2 ANTIBODY/ANTIGEN SCREEN W/REFLEX TO HIV 1/2 ANTIBODY DIFFERENTIATION Narrative: The following orders were created for panel order ED Protocol - HIV 1/2 Antibody/Antigen Screen. Procedure Abnormality Status --------- ------ ED HIV 1/2 Antibody/Anti...[[id number]] Normal Final result Please view results for these tests on the individual orders. Rads: US Pelvis Transvaginal Final Result Limited examination for reasons described above. No intrauterine gestation identified. Recommend correlation with serial beta hCG. Unremarkable sonographic appearance of the right ovary without definite evidence for ectopic gestation. The left adnexa was not scanned as patient terminated exam early. CRITICAL RESULT: No. COMMUNICATION: Per this written report. Preliminary report signed by Urvashi Restrepo MD on 03/27/2025 11:57 PM By electronically signing this report, I, the attending physician, attest that I have personally reviewed the images/data for the above examination(s) and agree with the final edited report. Drafted by Urvashi Restrepo MD on 03/27/2025 11:50 PM Final report signed by Lelia Lacy MD on 03/27/2025 11:57 PM MDM: Patient seen by the [facility] physician and followed-up by myself. In summary: NARRATIVE: Patient is a 24-year-old female who presents with complaints of diffuse right-sided abdominal discomfort. Has been seen multiple times at [facility] and had HCGs done. Has not had an appropriate doubling. Was given a dose of IM methotrexate a couple of days ago. Had an ult rasound done earlier today which did still document a 1.5 cm mass in the right adnexa and hCG in the mid 500s. Patient otherwise had a reassuring exam and H&H and was discharged for outpatient hybrid tester follow-up. Was offered some hydroxyzine at that time, but deferred. Patient presented to our ER for 2nd opinion of her own accord. H&H stable. HCG still in the 600range. Transvaginal ultrasound does not note a right adnexal mass at this time. Given unclear hCG trend and patient concern, hybrid tester was consulted. Patient signed out pending final hybrid tester recommendations. Clinical Impressions as of 03/28/2533 of unknown anatomic location DIAGNOSIS Final diagnoses: [O36.80X0] of unknown anatomic location New Prescriptions No medications on file Orders Placed This Encounter Procedures US Pelvis Transvaginal CMP CBC w/diff hCG, quantitative, Type and screen Hepatitis C Antibody - ED ED Protocol - HIV 1/2 Antibody/Antigen Screen ED HIV 1/2 Antibody/Antigen Screen w/Reflex to HIV 1/2 Differentiation Consult to Gynecology ED Medication Administration from 03/27/2025 1940 to 03/28/20254 Date/Time Order Dose Route Action 03/27/20252052 EDT acetaminophen (Tylenol) tablet 1,000 mg 1,000 mg Oral Given Ivana Loredo PA-C EMR Dragon/Modern Dancer disclaimer: Much of this encounter note is an electronic ornamental metalwork designer of spoken language to printed text. Electronic ornamental metalwork designer of spoken language may permit erroneous, or at times, nonsensical words or phrases to be inadvertently transcribed. Although I have reviewed the note for such errors, some may still exist. Please do not hesitate to reach out to me for clarification. [1] Past Medical History: Diagnosis Date Other specified health status No pertinent past medical history [2] Past Surgical History: Procedure Laterality Date DENTAL SURGERY N/A Dental surgery from [facility] TONSILLECTOMY N/A Tonsillectomy from [facility] [3] Family History Problem Relation Name Age of Onset Addiction problem Father Hypertension Mother Hypertension Sibling Kidney failure Mother [4] Tobacco Use Smoking status: Passive Smoke Exposure - Never Smoker Substance Use Topics Alcohol use: Yes Comment: Alcoholic Drinks/day: Occasional alcohol use [5] Allergies Allergen Reactions Lexapro [Escitalopram] Anaphylaxis Robitussin Dm Max Day-Night Anxiety Ivana Loredo PA 03/28/25 0034 Cosigned by Rose Cortes MD at 03/28/2025 10:27 AM EDT Associated attestation - Rose Cortes MD - 03/28/2025 10:27 AM EDT I attest to being involved in more than half the total time in patient care. On my evaluation, patient states that her pain has stayed the same since she was diagnosed with an ectopic . Her abdomen is not peritonitic. * ED Triage Notes - Joanne Morley RN - 03/27/2025 7:40 PM EDT Patient presents with diagnosed unruptured ectopic . Had shot of methotrexate 3 days ago. Pain to R side of pelvis. VSS. * Progress Notes - Larry Enrique APRN - 03/27/2025 7:40 PM EDT Images from the original note were not included. ED TRANSFER OF CARE NOTE Transferring provider: Kali Loredo PA-C Transferring attending: Dr. Cortes JUAN C Time: 00:30 I received sign-out and accepted care of this patient from the previous ED providers caring for this patient. I reviewed the patient's history, exam, work- up, and treatment plan up to this point. Please see the primary ED Provider Note for complete elements of the history, physical exam, and ED course. PERTINENT HISTORY: In brief, Ivon Jeter is a 24 y.o. female with relevant PMH recent dx of unruptured R sided ectopic who presented to the ED for evaluation of Pelvic Pain. Pt was dx withdiagnosed unruptured right sided ectopic , measuring 1.5cm, 3 days ago at OSH ED. Pt received a singular methotrexate injection during primary ED visit. Pt c/o severe right sided pelvic painand associated nausea. Pt endorses vaginal bleeding before receiving methotrexate. Pt endorses increased anxiety for fear of rupture. Pt reports she presented to OSH ED again for persistent pain, Hcgtoday had dropped by 25 and US today showed no growth. Pt reports use of tylenol. Pt endorses this is pt's first . Pt denies fever, chills, vomiting, diarrhea, headache, dizziness, chest pain, SOA, and urinary symptoms. PENDING: I accepted care of this patient from the previous provider while waiting for evaluation and/or recommendations from: OBGYN. Ultimately, the aforementioned service recommended further outpatient follow-up. ED Medication Administration from 03/27/20250 to 03/28/2025216 Date/Time Order Dose Route Action 03/27/20252052 EDT acetaminophen (Tylenol) tablet 1,000 mg 1,000 mg Oral Given ED COURSE: Clinical Impressions as of 03/28/25216 of unknown anatomic location Ultimately, this patient Was discharged Home (Discharge) The encounter diagnosis was of unknown anatomic location. . Patient was counseled on the diagnoses. Discharge medications if any are listed below. Listed medications are thoughtbe either curative for listed diagnoses or will help control ongoing symptoms. Patient is requestedto follow up with Patient's Primary Care Provider and OBGYN in order to obtain routine follow-up and specialty care. Instructions on follow up as well as precautions to return to the ER provided verbally by the EM provider, as well as written in patients discharge education packet. ED Prescriptions None Discharge Instructions It is recommended that you follow-up with your primary care specialty care providers for further outpatient evaluation and treatment recommendations. You if you choose to do so, you may also follow-up with [facility] services or further outpatient evaluation and treatment recommendations. Rest and recover as able. Please increase your water intake. [place] use of warm and/or cold compresses. Primary pain control should be accomplished with OTC Tylenol and/or ibuprofen, which can be alternated every 4-6 hours as needed for pain. It is important for you to follow-up with primary care provider for re- evaluation and recheck. Return for any acute/severe worsening. Of course, you may return to the emergency department any time for new or concerning symptoms. We are always open and available to you. All of your medical information here is available to you via the [email or web address] Internet portal. Please make sure that you are registered for access to this. Disposition Discharge AVS (Slovak Snapshot) - Printed 03/28/2025 Follow-Ups Go to Sarika Moyer APRN; As needed Follow up with [facility] (Obstetrics and Gynecology) - Larry Enrique APRN Cosigned by Rose Cortes MD at 03/28/2025 10:27 AM EDT Associated attestation - Rose Cortes MD - 03/28/2025 10:27 AM EDT The patient was seen only by Advanced Practice Provider (DOMINGA), and care was reviewed with me. documented in this encounter Plan of Treatment Not on file documented as of this encounter Procedures Procedure Name Priority Date/Time Associated Diagnosis Comments US PELVIS TRANSVAGINAL STAT 11:48 PM EDT ED HIV 1/2 ANTIBODY/ANTIGEN SCREEN WITH REFLEX TO HIV I/II DIFFERENTIATION STAT 03/27/2025 8:31 PM EDT ED PROTOCOL HIV 1/2 ANTIBODY/ANTIGEN SCREEN W/REFLEX TO HIV 1/2 ANTIBODY DIFFERENTIATION STAT 03/27/2025 8:31 PM EDT HEPATITIS C ANTIBODY - ED W/REFLEX TO HCV QUANT PCR STAT 03/27/2025 8:31 PM EDT CBC WITH AUTO DIFFERENTIAL STAT 03/27/2025 8:31 PM EDT TYPE AND SCREEN STAT 03/27/2025 8:31 PM EDT HCG, QUANTITATIVE STAT 03/27/2025 8:3 1 PM EDT COMPREHENSIVE METABOLIC PANEL, PLASMA STAT 03/27/2025 8:31 PM EDT documented in this encounter Results * US Pelvis Transvaginal (03/27/2025 11:48 PM EDT) Anatomical Region Laterality Modality Pelvis Ultrasound Impressions 03/27/2025 11:57 PM EDT Limited examination for reasons described above. No intrauterine gestation identified. Recommend correlation with serial beta hCG. Unremarkable sonographic appearance of the right ovary without definite evidence for ectopic gestation. The left adnexa was not scanned as patient terminated exam early. CRITICAL RESULT: No. COMMUNICATION: Per this written report. Preliminary report signed by Urvashi Restrepo MD on 03/27/2025 11:57 PM By electronically signing this report, I, the attending physician, attest that I have personally reviewed the images/data for the above examination(s) and agree with the final edited report. Drafted by Urvashi Restrepo MD on 03/27/2025 11:50 PM Final report signed by Lelia Lacy MD on 03/27/2025 11:57 PM Narrative 03/27/2025 11:57 PM EDT CLINICAL INDICATION: ectopic preg, abd pain TECHNIQUE: Multiplanar transvaginal grayscale and color Doppler ultrasound imaging of the pelvis was performed. Transvaginal scanning was performed to increase imaging detail and to improve diagnostic accuracy. Color doppler ultrasound imaging and spectral waveform analysis was performed to evaluate for possible ovarian torsion. COMPARISON: None. FINDINGS: Limited examination due to to patient intolerance secondary to pain and incomplete examination as patient requested to end exam early. Uterus: The uterus has normal echogenicity and measures 5.7 x 4.2 x 3.3 cm. No uterine mass. The endometrium measures 6 mm and is not thickened. No intrauterine gestation identified. Beta hCG is 6-6.2 Adnexa: The right ovary measures 3.9 x 1.9 x 2.8 cm without cyst or mass. The left adnexa was not scanned as the exam was ended early. Color Doppler imaging and spectral analysis was performed. Color doppler imaging demonstrated normal blood flow to the right ovary. Spectral waveform analysis demonstrated normal arterial and venous waveforms within the right ovary. Fluid Survey: No free fluid in the pelvis. Procedure Note Lelia Lacy MD - 03/27/2025 CLINICAL INDICATION: ectopic preg, abd pain TECHNIQUE: Multiplanar transvaginal grayscale and color Doppler ultrasound imaging ofthe pelvis was performed. Transvaginal scanning was performed to increaseimaging detail and to improve diagnostic accuracy. Color dopplerultrasound imaging and spectral waveform analysis was performed toevaluate for possible ovarian torsion. COMPARISON: None. FINDINGS: Limited examination due to to patient intolerance secondary to pain andincomplete examination as patient requested to end exam early. Uterus: The uterus has normal echogenicity and measures 5.7 x 4.2 x 3.3cm. No uterine mass. The endometrium measures 6 mm and is not thickened.No intrauterine gestation identified. Beta hCG is 6-6.2 Adnexa: The right ovary measures 3.9 x 1.9 x 2.8 cm without cyst or mass.The left adnexa was not scanned as the exam was ended early. Color Dopplerimaging and spectral analysis was performed. Color doppler imagingdemonstrated normal blood flow to the right ovary. Spectral waveformanalysis demonstrated normal arterial and venous waveforms within theright ovary. Fluid Survey: No free fluid in the pelvis. IMPRESSION: Limited examination for reasons described above. No intrauterine gestation identified. Recommend correlation with serialbeta hCG. Unremarkable sonographic appearance of the right ovary without definiteevidence for ectopic gestation. The left adnexa was not scanned as patient terminated exam early. CRITICAL RESULT: No. COMMUNICATION: Per this written report. Preliminary report signed by Urvashi Restrepo MD on 03/27/2025 11:57 PM By electronically signing this report, I, the attending physician, attestthat I have personally reviewed the images/data for the aboveexamination(s) and agree with the final edited report. Drafted by Urvashi Restrepo MD on 03/27/2025 11:50 PM Final report signed by Lelia Lacy MD on 03/27/2025 11:57 PM us Rose Cortes MD IMG US PROCEDURES Final Result * ED HIV 1/2 Antibody/Antigen Screen w/Reflex to HIV 1/2 Differentiation (03/27/2025 8:31 PM EDT) HIV 1 & 2 Antibody/Antigen Screen Non Reactive Non Reactive 03/27/2025 9:26 PM EDT [facility] Comment:Screening for HIV 1 & 2 antibodies, and P24 antigen is NONREACTIVE. No confirmatory testing is required. Blood Venous blood specimen / Unknown Venipuncture / Unknown 03/27/2025 8:31 PM EDT 03/27/2025 8:44 PM EDT Result [facility] us Rose Cortes MD LAB BLOOD ORDERABLES Final Resu lt [facility] [address] [place] [address] * Hepatitis C Antibody - ED (03/27/2025 8:31 PM EDT) Hepatitis C Antibody Negative Negative 03/27/2025 9:26 PM EDT [facility] Blood Venous blood specimen / Unknown Venipuncture / Unknown 03/27/2025 8:31 PM EDT 03/27/2025 8:44 PM EDT Result [facility] us Rose Cortes MD LAB BLOOD ORDERABLES Final Resu lt [facility] [address] [place] [address] * Type and screen (03/27/2025 8:31 PM EDT) ABO/Rh A Positive 03/27/2025 8:37 PM EDT BLOOD BANK Antibody Screen Negative 03/27/2025 8:37 PM EDT BLOOD BANK Specimen Expiration 03/30/2025 23:59 03/27/2025 8:37 PM EDT BLOOD BANK Blood Venous blood specimen / Unknown Venipuncture / Unknown 03/27/2025 8:31 PM EDT 03/27/2025 8:37 PM EDT Rose Cortes MD LAB BLOOD BANK TEST ORDERABLES Final Result Performing Organization Address [facility] de Phone Number BLOOD BANK [address] [place] [address], [place] * (ABNORMAL) hCG, quantitative, (03/27/2025 8:31 PM EDT) hCG, Total Beta 626.2(H) <5 mIU/mL 03/27/2025 9:22 PM EDT [facility] Blood Venous blood specimen / Unknown Venipuncture / Unknown 03/27/2025 8:31 PM EDT 03/27/2025 8:41 PM EDT Narrative [facility] - 03/27/2025 9:22 PM EDT Patients: Normal Range Premenopausal Female < 5 mIU/mL Male < 3 mIU/mL Postmenopausal Female < 8 mIU/mL The Carol Elecsys hCG+beta assay is standardized to the 4th IS for Chorionic Gonadotropin. The combination of the specific monoclonal antibodies used in this assay recognizes the holo-hormone, nicked forms of hCG, the Beta-core Fragment and the free beta-subunit. Elevated hCG concentrations not associated with are found in patients with gestational trophoblastic disease and choriocarcinoma as well as germ cell, ovarian, bladder, pancreas, stomach, lung and liver tumors. Performed by the [employer] electrochemiluminescent immunoassay which is traceable to the 4th International Standard for hCG (NIBSC 75/589). Results obtained with different test methods or kits cannot be used interchangeably. us Rose Cortes MD LAB BLOOD ORDERABLES Final Resu lt Performing Organization Address City/[facility]/ZIP Co de Phone Number [facility] [address] [place] [address] * (ABNORMAL) CBC w/diff (03/27/2025 8:31 PM EDT) WBC Count 11.76(H) 3.70 - 10.30 10*3/uL LAB HEMATOLOGY METHOD 03/27/2025 8:44 PM EDT [facility] RBC Count 4.82 3.90 - 5.20 10*6/uL LAB HEMATOLOGY METHOD 03/27/2025 8:44 PM EDT [facility] HGB 14.2 11.2 - 15.7 g/dL LAB HEMATOLOGY METHOD 03/27/2025 8:44 PM EDT [facility] HCT 39.9 34.0 - 45.0 % LAB HEMATOLOGY METHOD 03/27/2025 8:44 PM EDT [facility] Platelet Count 523(H) 155 - 369 10*3/uL LAB HEMATOLOGY METHOD 03/27/2025 8:44 PM EDT [facility] MCV 83 79 - 98 fL LAB HEMATOLOGY METHOD 03/27/2025 8:44 PM EDT [facility] MCH 29.5 26.0 - 32.0 pg LAB HEMATOLOGY METHOD 03/27/2025 8:44 PM EDT [facility] MCHC 35.6(H) 30.7 - 35.5 g/dL LAB HEMATOLOGY METHOD 03/27/2025 8:44 PM EDT [facility] RDW 12.2 11.5 - 14.5 % LAB HEMATOLOGY METHOD 03/27/2025 8:44 PM EDT [facility] MPV 9.3 8.8 - 12.5 fL LAB HEMATOLOGY METHOD 03/27/2025 8:44 PM EDT [facility] nRBC 0.0 <=0.0 per 100 WBCs LAB HEMATOLOGY METHOD 03/27/2025 8:44 PM EDT [facility] Differential Type Automated LAB HEMATOLOGY METHOD 03/27/2025 8:44 PM EDT [facility] Neutrophils % 71 % LAB HEMATOLOGY METHOD 03/27/2025 8:44 PM EDT [facility] Lymphocytes % 25 % LAB HEMATOLOGY METHOD 03/27/2025 8:44 PM EDT [facility] Monocytes % 4 % LAB HEMATOLOGY METHOD 03/27/2025 8:44 PM EDT [facility] Eosinophils % 0 % LAB HEMATOLOGY METHOD 03/27/2025 8:44 PM EDT [facility] Basophils % 0 % LAB HEMATOLOGY METHOD 03/27/2025 8:44 PM EDT [facility] Immature Granulocytes % 0 % LAB HEMATOLOGY METHOD 03/27/2025 8:44 PM EDT [facility] Neutrophils Absolute 8.17(H) 1.60 - 6.10 10*3/uL LAB HEMATOLOGY METHOD 03/27/2025 8:44 PM EDT [facility] Lymphocytes Absolute 2.96 1.20 - 3.90 10*3/uL LAB HEMATOLOGY METHOD 03/27/2025 8:44 PM EDT [facility] Monocytes Absolute 0.52 0.30 - 0.90 10*3/uL LAB HEMATOLOGY METHOD 03/27/2025 8:44 PM EDT [facility] Eosinophils Absolute 0.03 0.00 - 0.50 10*3/uL LAB HEMATOLOGY METHOD 03/27/2025 8:44 PM EDT [facility] Basophils Absolute 0.05 0.00 - 0.10 10*3/uL LAB HEMATOLOGY METHOD 03/27/2025 8:44 PM EDT [facility] Immature Granulocytes Absolute 0.03 0.00 - 0.06 10*3/uL LAB HEMATOLOGY METHOD 03/27/2025 8:44 PM EDT [facility] Blood Venous blood specimen / Unknown Venipuncture / Unknown 03/27/2025 8:31 PM EDT 03/27/2025 8:41 PM EDT Narrative [facility] - 03/27/2025 8:44 PM EDT Therapeutic decision making should be based on absolute values, rather than percentages. us Rose Cortes MD LAB BLOOD ORDERABLES Final Resu lt [facility] [address] [place] [address] * (ABNORMAL) CMP (03/27/2025 8:31 PM EDT) Glucose, Plasma 96 74 - 99 mg/dL 03/27/2025 9:22 PM EDT [facility] BUN, Plasma 11 7 - 21 mg/dL 03/27/2025 9:22 PM EDT [facility] Creatinine, Plasma 0.48(L) 0.60 - 1.10 mg/dL 03/27/2025 9:22 PM EDT [facility] BUN/Creatinine Ratio 23 03/27/2025 9:22 PM EDT [facility] Sodium, Plasma 136 136 - 145 mmol/L 03/27/2025 9:22 PM EDT [facility] Potassium, Plasma 3.1(L) 3.6 - 4.9 mmol/L 03/27/2025 9:22 PM EDT [facility] Chloride, Plasma 100 97 - 107 mmol/L 03/27/2025 9:22 PM EDT [facility] CO2, Plasma 20(L) 22 - 29 mmol/L 03/27/2025 9:22 PM EDT [facility] Anion Gap 16 6 - 16 mmol/L 03/27/2025 9:22 PM EDT [facility] Total Calcium, Plasma 9.8 8.9 - 10.2 mg/dL 03/27/2025 9:22 PM EDT [facility] Total Protein 7.7 6.3 - 7.9 g/dL 03/27/2025 9:22 PM EDT [facility] Albumin, Plasma 4.9 3.5 - 5.2 g/dL 03/27/2025 9:22 PM EDT [facility] AST, Plasma 17 10 - 35 U/L 03/27/2025 9:22 PM EDT [facility] ALT, Plasma 8(L) 10 - 35 U/L 03/27/2025 9:22 PM EDT [facility] Alkaline Phosphatase, Plasma 102 35 - 104 U/L 03/27/2025 9:22 PM EDT [facility] Total Bilirubin, Plasma 1.3(H) 0.2 - 1.1 mg/dL 03/27/2025 9:22 PM EDT [facility] eGFRcr 137.5 mL/min/1.7 3m*2 03/27/2025 9:22 PM EDT [facility] Comment:Reported eGFRcr in m L/min/1.73m2 is based the CKD-EPI 2020 equation that does not use a race coefficient. Blood Venous blood specimen / Unknown Venipuncture / Unknown 03/27/2025 8:31 PM EDT 03/27/2025 8:41 PM EDT us Rose Cortes MD LAB BLOOD ORDERABLES Final Resu lt [facility] [address] [place] [address] documented in this encounter Visit Diagnoses Diagnosis of unknown anatomic location- Primary documented in this encounter Administered Medications Inactive Administered Medications - up to 3 most recent administrations Medication Order MAR Action Action Date Dose Rate Site acetaminophen (Tylenol) tablet 1,000 mg 1,000 mg, Oral, Once, 1 dose, On 03/27/25 at 2024, STAT Given 03/27/2025 8:53 PM EDT 1,000 mg documented in this encounter Active and Recently Administered Medications Times are shown in EDT. Scheduled Medication Order 03/26/2025 03/27/2025 03/28/2025 acetaminophen (Tylenol) tablet 1,000 mg (COMPLETED) 1,000 mg, Oral, Once, 1 dose, On 03/27/25 at 2024, STAT 2052 (Given - Provider: Marbella Foss) documented in this encounter Care Teams Director Of Nursing Relationship Specialty Start Date End Date Sarika Moyer APRN [address] [place] [id number] PCP - General 10/14/20 documented as of this encounter
--- OUTSIDE RECORDS SUMMARY | 2025-04-05 22:43 | XMS_ITS | Encounter Summary ---
Author Organization [employer] ([place], [place], [place], [place], [place]) Address [address] [place] [address] Care Team Providers Care Fax Machine Operator Name Role Phone Sarika Moyer [...] - 04/06/2025 2:31 AM EST Emergency [facility] [address] [place] [phone] Keke Gar MD [address] [place] [address] Ectopic (Primary Dx) Discharge Disposition: Home or [...] be sent through Care Everywhere. * Ectopic Zofz-mm-[id number] (Citizen Of [place]) documented in this encounter ED Notes * [...] are negative. 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 IMPRESSION: Authenticated and Keke Gar MD [facility] US ORDERABLES Edited Result - Final * (ABNORMAL) Comprehensive metabolic panel (04/05/2025 11:30 PM EST) Sodium 140 136 - 145 meq/L 04/06/2025 12:03 AM [facility] Potassium 3.3(L) 3.5 - 5.1 meq/L 04/06/2025 12:03 AM [facility] Chloride 102 98 - 107 meq/L 04/06/2025 12:03 AM [facility] CO2 25 21 - 32 meq/L 04/06/2025 12:03 AM [facility] Calcium 9.5 8.5 - 10.1 mg/dL 04/06/2025 12:03 AM [facility] Glucose 106(H) 74 - 100 mg/dL 04/06/2025 12:03 AM [facility] BUN 12 7 - 18 mg/dL 04/06/2025 12:03 AM [facility] Creatinine 0.60 0.55 - 1.10 mg/dL 04/06/2025 12:03 AM [facility] BUN/Creatinine 20 04/06/2025 12:03 AM [facility] Albumin 4.5 3.4 - 5.0 g/dL 04/06/2025 12:03 AM [facility] Alkaline Phosphatase 91 46 - 116 U/L 04/06/2025 12:03 AM [facility] ALT 10(L) 12 - 78 U/L 04/06/2025 12:03 AM [facility] AST 14(L) 15 - 37 U/L 04/06/2025 12:03 AM [facility] Total Bilirubin 0.3 0.2 - 1.0 mg/dL 04/06/2025 12:03 AM [facility] Protein, Total 8.0 6.4 - 8.2 gm/dL 04/06/2025 12:03 AM [facility] Anion Gap 16 11 - 22 04/06/2025 12:03 AM [facility] A/G Ratio 1.3 04/06/2025 12:03 AM [facility] Globulin 3.5 g/dL 04/06/2025 12:03 AM [facility] Osmolality Calc 279.6 mOsm/kg 12:03 AM [facility] eGFR (mL/min/1.73m2) >60 >=60 mL/min/1.7 3m2 04/06/2025 12:03 AM [facility] Comment:ESTIMATED GFR IS NOT ACCURATE CREATININE CLEARANCE IN PREDICTING GLOMERULAR FILTRATION RATE. ESTIMATED GFR IS NOT APPLICABLE FOR DIALYSIS PATIENTS. Blood Venipuncture / Unknown 04/05/2025 11:30 PM EST 04/05/2025 11:41 PM EST us Keke Gar MD LAB BLOOD ORDERABLES Lainey mckay Result [facility] [address] [id number] [phone] * (ABNORMAL) CBC with Auto Diff (04/05/2025 11:30 PM EST) WBC 9.8 4.8 - 10.8 K/ L 04/05/2025 11:45 PM [facility] RBC 4.72 3.50 - 5.20 M/ L 04/05/2025 11:45 PM [facility] Hemoglobin 13.8 11.7 - 15.8 GM/DL 04/05/2025 11:45 PM [facility] Hematocrit 40.9 35.0 - 47.0 % 04/05/2025 11:45 PM [facility] MCV 87 81 - 101 fL 04/05/2025 11:45 PM [facility] MCH 29.2 27.0 - 34.0 pg 04/05/2025 11:45 PM [facility] MCHC 33.7 32.0 - 36.0 GM/DL 04/05/2025 11:45 PM [facility] RDW 13.1 11.5 - 14.5 % 04/05/2025 11:45 PM [facility] Platelets 511(H) 150 - 400 K/CU MM 04/05/2025 11:45 PM [facility] MPV 9.2(L) 9.4 - 12.4 fL 04/05/2025 11:45 PM [facility] Nucleated Red Blood Cell 0.0 0 - 0.2 % 04/05/2025 11:45 PM [facility] % Neutros 65 37 - 80 % 04/05/2025 11:45 PM [facility] % Lymphs 27 10 - 50 % 04/05/2025 11:45 PM [facility] % Monos 6 5 - 13 % 04/05/2025 11:45 PM [facility] % Eos 0.8 0.0 - 7.0 % 04/05/2025 11:45 PM [facility] % Baso 1 0 - 3 % 04/05/2025 11:45 PM [facility] NRBC Absolute <0.01 0 - 0.012 K/ul 04/05/2025 11:45 PM [facility] # Neutros 6.35 2.00 - 6.90 K/ L 04/05/2025 11:45 PM EST [facility] # Lymphs 2.68 0.60 - 3.40 K/ L 04/05/2025 11:45 PM EST [facility] # Monos 0.62 0.00 - 0.90 K/ L 04/05/2025 11:45 PM EST [facility] # Eos 0.08 0.00 - 0.70 K/ L 04/05/2025 11:45 PM EST [facility] # Baso 0.05 0.00 - 0.20 K/ L 04/05/2025 11:45 PM EST [facility] % Imm Grans 0.20 % 04/05/2025 11:45 PM EST [facility] # IG 0.02(H) 0.00 - 0.00 K/uL 04/05/2025 11:45 PM EST [facility] Blood Venipuncture / Unknown 04/05/2025 11:30 PM EST 04/05/2025 11:41 PM EST Narrative [facility] - 04/05/2025 11:45 PM [...] MD LAB BLOOD ORDERABLES Lainey l Result [facility] [address] [place], [place] [id number], [facility] [phone] * (ABNORMAL) Urinalysis w/Microscopic (04/05/2025 11:04 PM EST) Color, UA Yellow 04/05/2025 11:43 PM EST [facility] Clarity, UA Clear 04/05/2025 11:43 PM [facility] Specific [place], UA 1.025 1.002 - 1.030 04/05/2025 11:43 PM [facility] pH, UA 6.0 5.0 - 9.0 04/05/2025 11:43 PM [facility] Leukocytes, UA Negative Negative 04/05/2025 11:43 PM [facility] Nitrite, UA Negative Negative 04/05/2025 11:43 PM [facility] Protein, UA 1+(A) Negative 04/05/2025 11:43 PM [facility] Glucose, UA Negative Negative 04/05/2025 11:43 PM [facility] Ketones, UA Trace(A) Negative 04/05/2025 11:43 PM [facility] Urobilinogen, UA 0.2 mg/dL Normal 04/05/2025 11:43 PM [facility] Bilirubin, UA Negative Negative 04/05/2025 11:43 PM [facility] Blood, UA 3+(A) Negative 04/05/2025 11:43 PM [facility] RBC, UA 5-10(A) None Seen, Rare /HPF 04/05/2025 11:43 PM [facility] WBC, UA 0-5 None Seen, Occasional , 0-5 /HPF 04/05/2025 11:43 PM [facility] Bacteria, UA 2+(A) None Seen 04/05/2025 11:43 PM [facility] Mucus 1+(A) Trace 04/05/2025 11:43 PM [facility] SQUAMOUS EPITHELIAL 0-5(A) None Seen, Rare /HPF 04/05/2025 11:43 PM [facility] Ca Oxalate [place], UA 2+(A) (none) 04/05/2025 11:43 PM [facility] Specimen Source Urine, Clean Catch 04/05/2025 11:43 PM [facility] Urine URINE SPECIMEN COLLECTION, CLEAN CATCH / Unknown 04/05/2025 11:04 PM EST 04/05/2025 11:04 PM EST us Keke Gar MD URINE ORDERABLES Final Re sult [facility] [address] [id number], [facility] [phone] documented in this encounter Visit Diagnoses Diagnosis Ectopic - Primary Unspecified ectopic without intrauterine documented in this encounter Care Teams Fax Machine Operator Relationship Specialty Start Date End Date Sarika Moyer, ORTHOTIST/PROSTHETIST [address] [place] [address] PCP - General Nurse Practitioner 04/05/25 documented as of this encounter
--- OUTSIDE RECORDS SUMMARY | 2025-04-10 23:39 | XMS_ITS | Encounter Summary ---
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 Return to the emergency department for any new or worsening symptoms. C THERAPIST * Attachments The following attachments cannot be sent through Care Everywhere. * Hypokalemia (French) * Ectopic [id number] (French) documented in this encounter ED Notes * [...] 2. Hypokalemia Farzad Stiles MD 04/11/25 0508 C THERAPIST documented in this encounter Plan of Treatment [...] IMPRESSION: Authenticated and Farzad Stiles MD [facility] ORDERABLES Edited Result - Final * hCG, quantitative, (04/11/2025 1:20 AM EST) HCG Serum Quant 133 mIU/mL 1:58 AM EST [facility] Comment: Results of the [...] MD LAB BLOOD ORDERABLES Final Resu lt [facility] [address] [place] [address] * (ABNORMAL) Comprehensive metabolic panel (04/11/2025 1:20 AM EST) Sodium 142 136 - 145 meq/L 04/11/2025 1:58 AM EST [facility] Potassium 3.1(L) 3.5 - 5.1 meq/L 04/11/2025 1:58 AM EST [facility] Chloride 105 98 - 107 meq/L 04/11/2025 1:58 AM EST [facility] CO2 28 21 - 32 meq/L 04/11/2025 1:58 AM EST [facility] Calcium 9.0 8.5 - 10.1 mg/dL 04/11/2025 1:58 AM EST [facility] Glucose 105(H) 74 - 100 mg/dL 04/11/2025 1:58 AM EST [facility] BUN 11 7 - 18 mg/dL 04/11/2025 1:58 AM EST [facility] Creatinine 0.61 0.55 - 1.10 mg/dL 04/11/2025 1:58 AM [facility] BUN/Creatinine 18 04/11/2025 1:58 AM [facility] Albumin 3.9 3.4 - 5.0 g/dL 04/11/2025 1:58 AM [facility] Alkaline Phosphatase 78 46 - 116 U/L 04/11/2025 1:58 AM [facility] ALT 12 12 - 78 U/L 04/11/2025 1:58 AM [facility] AST 11(L) 15 - 37 U/L 04/11/2025 1:58 AM [facility] Total Bilirubin 0.4 0.2 - 1.0 mg/dL 04/11/2025 1:58 AM [facility] Protein, Total 7.1 6.4 - 8.2 gm/dL 04/11/2025 1:58 AM [facility] Anion Gap 12 11 - 22 04/11/2025 1:58 AM [facility] A/G Ratio 1.2 04/11/2025 1:58 AM [facility] Globulin 3.2 g/dL 04/11/2025 1:58 AM [facility] Osmolality Calc 282.9 mOsm/kg 1:58 AM [facility] eGFR (mL/min/1.73m2) >60 >=60 mL/min/1.7 3m2 04/11/2025 1:58 AM [facility] Comment:ESTIMATED GFR IS NOT ACCURATE CREATININE CLEARANCE IN PREDICTING GLOMERULAR FILTRATION RATE. ESTIMATED GFR IS NOT APPLICABLE FOR DIALYSIS PATIENTS. Blood Venipuncture / Unknown 04/11/2025 1:20 AM EST 04/11/2025 1:23 AM EST us Farzad Stiles MD LAB BLOOD ORDERABLES Final Resu lt [facility] [address] [place] [address], [facility] [phone] * (ABNORMAL) CBC with Auto Diff (04/11/2025 1:20 AM [facility]) WBC 7.3 4.8 - 10.8 K/ L 04/11/2025 1:27 AM [facility] RBC 4.32 3.50 - 5.20 M/ L 04/11/2025 1:27 AM [facility] Hemoglobin 12.7 11.7 - 15.8 GM/DL 04/11/2025 1:27 AM [facility] Hematocrit 37.8 35.0 - 47.0 % 04/11/2025 1:27 AM [facility] MCV 88 81 - 101 fL 04/11/2025 1:27 AM [facility] MCH 29.4 27.0 - 34.0 pg 04/11/2025 1:27 AM [facility] MCHC 33.6 32.0 - 36.0 GM/DL 04/11/2025 1:27 AM [facility] RDW 13.2 11.5 - 14.5 % 04/11/2025 1:27 AM [facility] Platelets 432(H) 150 - 400 K/CU MM 04/11/2025 1:27 AM [facility] MPV 9.1(L) 9.4 - 12.4 fL 04/11/2025 1:27 AM [facility] Nucleated Red Blood Cell 0.0 0 - 0.2 % 04/11/2025 1:27 AM [facility] % Neutros 55 37 - 80 % 04/11/2025 1:27 AM [facility] % Lymphs 34 10 - 50 % 04/11/2025 1:27 AM [facility] % Monos 9 5 - 13 % 04/11/2025 1:27 AM [facility] % Eos 1.5 0.0 - 7.0 % 04/11/2025 1:27 AM [facility] % Baso 1 0 - 3 % 04/11/2025 1:27 AM [facility] NRBC Absolute <0.01 0 - 0.012 K/ul 04/11/2025 1:27 AM EST [facility] # Neutros 4.04 2.00 - 6.90 K/ L 04/11/2025 1:27 AM EST [facility] # Lymphs 2.51 0.60 - 3.40 K/ L 04/11/2025 1:27 AM EST [facility] # Monos 0.62 0.00 - 0.90 K/ L 04/11/2025 1:27 AM EST [facility] # Eos 0.11 0.00 - 0.70 K/ L 04/11/2025 1:27 AM EST [facility] # Baso 0.04 0.00 - 0.20 K/ L 04/11/2025 1:27 AM EST [facility] % Imm Grans 0.10 % 04/11/2025 1:27 AM EST [facility] # IG 0.01(H) 0.00 - 0.00 K/uL 04/11/2025 1:27 AM EST [facility] Blood Venipuncture / Unknown 04/11/2025 1:20 AM EST 04/11/2025 1:23 AM EST Narrative [facility] - 04/11/2025 1:27 AM [...] MD LAB BLOOD ORDERABLES Final Resu lt [facility] [address] [place], [place] [address] [phone] documented in this encounter Visit Diagnoses Diagnosis [...] access) documented in this encounter Care Teams Quilt Sewer Relationship Specialty Start Date End Date Sarika Moyer, SUPERVISOR INCISING [address] [place] [address] PCP - General Nurse Practitioner 04/05/25 documented as of this encounter
--- OUTSIDE RECORDS SUMMARY | 2025-04-18 19:23 | XMS_ITS | Encounter Summary ---
Author Organization [employer] ([place], [place], [place], [place], [place]) Address [address] [place] [address] Care Team Providers Care Packaging Sales Consultant Name Role Phone Sarika Moyer CONSTRUCTION DRIVER Primary Care Provider + Reason for Visit * Reason Comments Vaginal Bleeding Pt was diagnosed wit h an ectopic on March 25. States she is passing clots today. HCG was 11 yesterday. Encounter Details Date Type Department Care Team (Late st Contact Info) Description 04/18/2025 7:23 PM EST - 04/18/2025 9:25 PM EST Emergency [facility] Emergency Department [address] [place] [phone] Toy Egan MD [address] [place] [address] Vaginal bleeding (Primary Dx) Discharge Disposition: Home [...] through Care Everywhere. * Abnormal Uterine Bleeding [id number] (Sao Tomean) documented in this encounter ED Notes * [...] Relationship: PCP - General [address] [facility] [address] Next Steps: Schedule an appointment as soon as possible for a visit in 2 day(s) Electronically Signed By Toy Egan MD 04/18/252118 ANICAL ASSEMBLER documented in this encounter Plan of Treatment Not on file documented as of this encounter Procedures Procedure Name Priority Date/Time Associated Diagnosis Comments HCG, QUANTITATIVE, STAT 04/18/2025 8:19 PM EST documented in this encounter Results * hCG, quantitative, (04/18/2025 8:19 PM EST) Pathologist [facility] HCG Serum Quant 6 mIU/mL 9:06 PM EST [facility] Comment: Results of the HCG [...] MD LAB BLOOD ORDERABLES Final Resu lt [facility] [address] [place] [address], [facility] [phone] documented in this encounter Visit Diagnoses Diagnosis Vaginal bleeding- Primary Other specified noninflammatory disorder of vagina documented in this encounter Care Teams Packaging Sales Consultant Relationship Specialty Start Date End Date Sarika Moyer, CONSTRUCTION DRIVER [address] [place] [address] PCP - General Nurse Practitioner 04/05/25 documented as of this encounter
--- OUTSIDE RECORDS SUMMARY | 2025-04-21 08:37 | XMS_ITS | Encounter Summary ---
Author Organization Healthcare Address [address] [id number] Care Team Providers Care Branch Operations Coordinator Name Role Phone Sarika Moyer ENTRY LEVEL ELECTRICAL ENGINEER Primary Care Provider + Encounter Details [...] on filedocumented in this encounter Care Teams Branch Operations Coordinator Relationship Specialty Start Date End Date Sarika Moyer, ENTRY LEVEL ELECTRICAL ENGINEER [address] [address] PCP - General 10/14/20 documented as of this encounter
--- OUTSIDE RECORDS SUMMARY | 2025-04-21 08:38 | XMS_ITS | Encounter Summary ---
Author Organization Healthcare Address [address] [place] [address] Care Team Providers Care Box Maker Wood Name Role Phone Sarika Moyer BOX MAKER WOOD Primary Care Provider + Encounter Details Date Type Department Care Team ([facility] st Contact Info) Description 03/17/2025 Telephone Obstetrics & Gynecology [address] [place] [phone] Chiki Cardenas MD [address] [place] [address] Social History Tobacco Use Types [...] on filedocumented in this encounter Care Teams Box Maker Wood Relationship Specialty Start Date End Date Sarika Moyer APRN [address] [place] [address] PCP - General 10/14/20 documented as of this encounter
--- OUTSIDE RECORDS SUMMARY | 2025-04-21 08:40 | XMS_ITS | Encounter Summary ---
Author Organization [employer] ([place], [place], [place], [place], [place]) Address [address] [place] [address] Care Team Providers Care Clutch Rebuilder Name Role Phone Sarika Moyer ACQUISITIONS LOGISTICS ANALYST Primary Care Provider + Encounter Details Date [...] on filedocumented in this encounter Care Teams Clutch Rebuilder Relationship Specialty Start Date End Date Sarika Moyer APRN [address] [place] [address] PCP - General Nurse Practitioner 04/05/25 documented as of this encounter
--- OUTSIDE RECORDS SUMMARY | 2025-04-21 08:40 | XMS_ITS | Encounter Summary ---
Author Organization [employer] ([place], [place], [place], [place], [place]) Address [address] [place] [address] Care Team Providers Care Assistant Coach Name Role Phone Sarika Moyer HIGH SCHOOL SOCIAL STUDIES TUTOR Primary Care Provider + Encounter Details Date [...] on filedocumented in this encounter Care Teams Assistant Coach Relationship Specialty Start Date End Date Sarika Moyer APRN [address] [place] [address] PCP - General Nurse Practitioner 04/05/25 documented as of this encounter
--- OUTSIDE RECORDS SUMMARY | 2025-04-21 08:40 | XMS_ITS | Clinical Summary ---
Author Organization Healthcare Address [address] [id number] Care Team Providers Care Corporate Driver Name Role Phone Sarika Moyer CRATING AND MOVING ESTIMATOR Primary Care Provider + Allergies Active Allergy Reactions Criticality Noted Date Comments Escitalopram Anaphylaxis High 03/27/2025 Robitussin Dm Max Day-Night Anxiety Low 03/27/20 Medications No known medications Active Problems Comments Yes No known active problems Encounters Date Type Department Care Team Description 03/27/2025 8:35 PM EDT - 03/28/2025 1:22 AM EDT Emergency [facility] Emergency Department [address] [place] [phone] Rose Cortes MD of unknown anatomic location (Primary Dx) Discharge Disposition: Home or Self Care 03/27/2025 Travel 03/17/2025 Telephone Obstetrics & Gynecology [address] [place] [phone] Chiki Cardenas MD from Last 3 [...] 10/19/2024 10/19/2014, 05/21/2006, 08/26/2003, Additional history exists [id number] Vaccine ( - season) 2025 UKY-Influenza Vaccine [...] Reactive Non Reactive 03/27/2025 9:26 PM EDT [facility] Comment:Screening for HIV 1 & 2 antibodies, and P24 antigen is NONREACTIVE. No confirmatory testing is required. Blood Venous blood specimen / Unknown Venipuncture / Unknown 03/27/2025 8:31 PM EDT 03/27/2025 8:44 PM EDT Rose Cortes MD LAB BLOOD ORDERABLES Final Resu lt [facility] [address] [place] [address] * Hepatitis C Antibody - ED (03/27/2025 8:31 PM EDT) Hepatitis C Antibody Negative Negative 03/27/2025 9:26 PM EDT [facility] Blood Venous blood specimen / Unknown Venipuncture / Unknown 03/27/2025 8:31 PM EDT 03/27/2025 8:44 PM EDT us Rose Cortes MD LAB BLOOD ORDERABLES Final Resu lt [facility] [address] [place] [address] * (ABNORMAL) CBC w/diff (03/27/2025 8:31 PM EDT) Pathologist [facility] WBC Count 11.76(H) 3.70 - 10.30 10*3/uL LAB HEMATOLOGY METHOD 03/27/2025 8:44 PM EDT [facility] RBC Count 4.82 3.90 - 5.20 10*6/uL LAB HEMATOLOGY METHOD 03/27/2025 8:44 PM EDT [facility] HGB 14.2 11.2 - 15.7 g/dL LAB HEMATOLOGY METHOD 03/27/2025 8:44 PM EDT [facility] HCT 39.9 34.0 - 45.0 % LAB HEMATOLOGY METHOD 03/27/2025 8:44 PM EDT [facility] Platelet Count 523(H) 155 - 369 10*3/uL LAB HEMATOLOGY METHOD 03/27/2025 8:44 PM EDT [facility] MCV 83 79 - 98 fL LAB HEMATOLOGY METHOD 03/27/2025 8:44 PM EDT [facility] MCH 29.5 26.0 - 32.0 pg LAB HEMATOLOGY METHOD 03/27/2025 8:44 PM EDT [facility] MCHC 35.6(H) 30.7 - 35.5 g/dL LAB HEMATOLOGY METHOD 03/27/2025 8:44 PM EDT [facility] RDW 12.2 11.5 - 14.5 % LAB HEMATOLOGY METHOD 03/27/2025 8:44 PM EDT [facility] MPV 9.3 8.8 - 12.5 fL LAB HEMATOLOGY METHOD 03/27/2025 8:44 PM EDT [facility] nRBC 0.0 <=0.0 per 100 WBCs LAB HEMATOLOGY METHOD 03/27/2025 8:44 PM EDT [facility] Differential Type Automated LAB HEMATOLOGY METHOD 03/27/2025 8:44 PM EDT [facility] Neutrophils % 71 % LAB HEMATOLOGY METHOD 03/27/2025 8:44 PM EDT [facility] Lymphocytes % 25 % LAB HEMATOLOGY METHOD 03/27/2025 8:44 PM EDT [facility] Monocytes % 4 % LAB HEMATOLOGY METHOD 03/27/2025 8:44 PM EDT [facility] Eosinophils % 0 % LAB HEMATOLOGY METHOD 03/27/2025 8:44 PM EDT [facility] Basophils % 0 % LAB HEMATOLOGY METHOD 03/27/2025 8:44 PM EDT [facility] Immature Granulocytes % 0 % LAB HEMATOLOGY METHOD 03/27/2025 8:44 PM EDT [facility] Neutrophils Absolute 8.17(H) 1.60 - 6.10 10*3/uL LAB HEMATOLOGY METHOD 03/27/2025 8:44 PM EDT [facility] Lymphocytes Absolute 2.96 1.20 - 3.90 10*3/uL LAB HEMATOLOGY METHOD 03/27/2025 8:44 PM EDT [facility] Monocytes Absolute 0.52 0.30 - 0.90 10*3/uL LAB HEMATOLOGY METHOD 03/27/2025 8:44 PM EDT [facility] Eosinophils Absolute 0.03 0.00 - 0.50 10*3/uL LAB HEMATOLOGY METHOD 03/27/2025 8:44 PM EDT [facility] Basophils Absolute 0.05 0.00 - 0.10 10*3/uL LAB HEMATOLOGY METHOD 03/27/2025 8:44 PM EDT [facility] Immature Granulocytes Absolute 0.03 0.00 - 0.06 10*3/uL LAB HEMATOLOGY METHOD 03/27/2025 8:44 PM EDT [facility] Blood Venous blood specimen / Unknown Venipuncture / Unknown 03/27/2025 8:31 PM EDT 03/27/2025 8:41 PM EDT Narrative [facility] - 03/27/2025 8:44 PM EDT Therapeutic decision making should be based on absolute values, rather than percentages. Rose Cortes MD LAB BLOOD ORDERABLES Final Resu lt Performing Organization Address City/[facility]/ZIP Co de Phone Number [facility] [address] [place] [address] * Type and screen (03/27/2025 8:31 PM [...] TEST ORDERABLES Final Result Performing Organization Address [facility] de Phone Number BLOOD BANK [address] [place] [address] * (ABNORMAL) hCG, quantitative, (03/27/2025 8:31 PM EDT) hCG, Total Beta 626.2(H) <5 mIU/mL 03/27/2025 9:22 PM EDT [facility] Blood Venous blood specimen / Unknown Venipuncture / Unknown 03/27/2025 8:31 PM EDT 03/27/2025 8:41 PM EDT Narrative [facility] - 03/27/2025 9:22 PM EDT [...] MD LAB BLOOD ORDERABLES Final Resu lt [facility] [address] [place] [address] * (ABNORMAL) CMP (03/27/2025 8:31 PM EDT) Glucose, Plasma 96 74 - 99 mg/dL 03/27/2025 9:22 PM EDT [facility] BUN, Plasma 11 7 - 21 mg/dL 03/27/2025 9:22 PM EDT [facility] Creatinine, Plasma 0.48(L) 0.60 - 1.10 mg/dL 03/27/2025 9:22 PM EDT [facility] BUN/Creatinine Ratio 23 03/27/2025 9:22 PM EDT [facility] Sodium, Plasma 136 136 - 145 mmol/L 03/27/2025 9:22 PM EDT [facility] Potassium, Plasma 3.1(L) 3.6 - 4.9 mmol/L 03/27/2025 9:22 PM EDT [facility] Chloride, Plasma 100 97 - 107 mmol/L 03/27/2025 9:22 PM EDT [facility] CO2, Plasma 20(L) 22 - 29 mmol/L 03/27/2025 9:22 PM EDT [facility] Anion Gap 16 6 - 16 mmol/L 03/27/2025 9:22 PM EDT [facility] Total Calcium, Plasma 9.8 8.9 - 10.2 mg/dL 03/27/2025 9:22 PM EDT [facility] Total Protein 7.7 6.3 - 7.9 g/dL 03/27/2025 9:22 PM EDT [facility] Albumin, Plasma 4.9 3.5 - 5.2 g/dL 03/27/2025 9:22 PM EDT [facility] AST, Plasma 17 10 - 35 U/L 03/27/2025 9:22 PM EDT [facility] ALT, Plasma 8(L) 10 - 35 U/L 03/27/2025 9:22 PM EDT [facility] Alkaline Phosphatase, Plasma 102 35 - 104 U/L 03/27/2025 9:22 PM EDT [facility] Total Bilirubin, Plasma 1.3(H) 0.2 - 1.1 mg/dL 03/27/2025 9:22 PM EDT [facility] eGFRcr 137.5 mL/min/1.7 3m*2 03/27/2025 9:22 PM EDT [facility] Comment:Reported eGFRcr in m L/min/1.73m2 is based the CKD-EPI 2020 equation that does not use a race coefficient. Blood Venous blood specimen / Unknown Venipuncture / Unknown 03/27/2025 8:31 PM EDT 03/27/2025 8:41 PM EDT us Rose Cortes MD LAB BLOOD ORDERABLES Final Resu lt [facility] [address] [place] [address] from Last 3 Months Insurance [facility] MEDICAID Care Teams Corporate Driver Relationship Specialty Start Date End Date Sarika Moyer APRN [address] [place] [address] PCP - General 10/14/20
--- OUTSIDE RECORDS SUMMARY | 2025-04-21 08:41 | XMS_ITS | Referral Summary ---
Author Organization [employer] ([place], [place], [place], [place], [place]) Address [address] [place] [address] Care Team Providers Care Call Center Associate Name Role Phone Sarika Moyer STONE BANKER Primary Care Provider + Encounters Date Type Department Care Team Description 04/18/2025 Travel 04/18/2025 7:23 PM EST - 04/18/2025 9:25 PM EST Emergency [facility] Emergency Department [address] [place] [phone] Toy Egan MD Vaginal bleeding (Primary Dx) Discharge Disposition: Home or Self Care 04/10/2025 11:39 PM EST - 04/11/2025 5:09 AM EST Emergency [facility] Emergency Department [address] [place] [phone] Farzad Stiles MD Ectopic (Primary Dx); Hypokalemia Discharge Disposition: Home or Self Care 04/10/2025 Travel 04/05/2025 10:43 PM EST - 04/06/2025 2:31 AM EST Emergency [facility] Emergency Department [address] [place] [phone] Keke Gar MD Ectopic (Primary Dx) Discharge [...] Mass Index 18.39 04/18/2025 7:30 PM EST Plan of Treatment Not on file Procedures Procedure Name Priority Date/Time Associated Diagnosis Comments HCG, QUANTITATIVE, STAT 04/18/2025 8:19 PM EST US OB TRANSVAGINAL STAT 04/11/2025 2: 29 AM EST HCG, QUANTITATIVE, STAT 04/11/2025 1:20 AM EST COMPREHENSIVE METABOLIC PANEL STAT 04/11/2025 1:20 AM EST CBC W/ AUTO DIFF STAT 04/11/2025 1:20 AM EST OB TRANSVAGINAL STAT 04/06/2025 12 :35 AM EST COMPREHENSIVE METABOLIC PANEL STAT 04/05/2025 11:30 PM EST CBC W/ AUTO DIFF STAT 04/05/2025 11:3 0 PM EST URINALYSIS W/ MICROSCOPIC STAT 04/05/2025 11:04 PM EST from Last 3 Months Results * hCG, quantitative, (04/18/2025 8:19 PM EST) Only the most recent of2 resultswithin the time period is included. HCG Serum Quant 6 mIU/mL 9:06 PM EST [facility] Comment: Results of the HCG quant [...] MD LAB BLOOD ORDERABLES Final Resu lt [facility] [address] [place] [address] * US OB transvaginal (04/11/2025 2:29 AM [...] the cul de sac. IMPRESSION: Authenticated and us Farzad Stiles MD [facility] ORDERABLES Edited Result - Final [...] 04/11/2025 1:20 AM EST 04/11/2025 1:23 AM [facility]ATORY - 04/11/2025 1:27 AM EST When [...] MD LAB BLOOD ORDERABLES Final Resu lt [facility] [address] [place] [address], [facility] [phone] * (ABNORMAL) Comprehensive metabolic panel (04/11/2025 1:20 AM EST) Only the most recent of2 resultswithin the time period is included. Sodium 142 136 - 145 meq/L 04/11/2025 1:58 AM EST [facility] Potassium 3.1(L) 3.5 - 5.1 meq/L 04/11/2025 1:58 AM [facility] Chloride 105 98 - 107 meq/L 04/11/2025 1:58 AM EST [facility] CO2 28 21 - 32 meq/L 04/11/2025 1:58 AM EST [facility] Calcium 9.0 8.5 - 10.1 mg/dL 04/11/2025 1:58 AM EST [facility] Glucose 105(H) 74 - 100 mg/dL 04/11/2025 1:58 AM EST [facility] BUN 11 7 - 18 mg/dL 04/11/2025 1:58 AM EST [facility] Creatinine 0.61 0.55 - 1.10 mg/dL 04/11/2025 1:58 AM [facility] BUN/Creatinine 18 04/11/2025 1:58 AM EST [facility] Albumin 3.9 3.4 - 5.0 g/dL 04/11/2025 1:58 AM EST [facility] Alkaline Phosphatase 78 46 - 116 U/L 04/11/2025 1:58 AM EST [facility] ALT 12 12 - 78 U/L 04/11/2025 1:58 AM [facility] AST 11(L) 15 - 37 U/L 04/11/2025 1:58 AM EST [facility] Total Bilirubin 0.4 0.2 - 1.0 mg/dL 04/11/2025 1:58 AM [facility] Protein, Total 7.1 6.4 - 8.2 gm/dL 04/11/2025 1:58 AM [facility] Anion Gap 12 11 - 22 04/11/2025 1:58 AM [facility] A/G Ratio 1.2 04/11/2025 1:58 AM [facility] Globulin 3.2 g/dL 04/11/2025 1:58 AM [facility] Osmolality Calc 282.9 mOsm/kg 1:58 AM [facility] eGFR (mL/min/1.73m2) >60 >=60 mL/min/1.7 3m2 04/11/2025 1:58 AM [facility] Comment:ESTIMATED GFR IS NOT ACCURATE CREATININE CLEARANCE IN PREDICTING GLOMERULAR FILTRATION RATE. ESTIMATED GFR IS NOT APPLICABLE FOR DIALYSIS PATIENTS. Blood Venipuncture / Unknown 04/11/2025 1:20 AM EST 04/11/2025 1:23 AM EST us Farzad Stiles MD LAB BLOOD ORDERABLES Final Resu lt [facility] [address] [place] [address], [facility] [phone] * (ABNORMAL) Urinalysis w/Microscopic (04/05/2025 11:04 PM EST) Color, UA Yellow 04/05/2025 11:43 PM [facility] Clarity, UA Clear 04/05/2025 11:43 PM [facility] Specific [place], UA 1.025 1.002 - 1.030 04/05/2025 11:43 PM [facility] pH, UA 6.0 5.0 - 9.0 04/05/2025 11:43 PM [facility] Leukocytes, UA Negative Negative 04/05/2025 11:43 PM EST [facility] Nitrite, UA Negative Negative 04/05/2025 11:43 PM [facility] Protein, UA 1+(A) Negative 04/05/2025 11:43 PM [facility] Glucose, UA Negative Negative 04/05/2025 11:43 PM EST [facility] Ketones, UA Trace(A) Negative 04/05/2025 11:43 PM [facility] Urobilinogen, UA 0.2 mg/dL Normal 04/05/2025 11:43 PM EST [facility] Bilirubin, UA Negative Negative 04/05/2025 11:43 PM [facility] Blood, UA 3+(A) Negative 04/05/2025 11:43 PM [facility] RBC, UA 5-10(A) None Seen, Rare /HPF 04/05/2025 11:43 PM [facility] WBC, UA 0-5 None Seen, Occasional , 0-5 /HPF 04/05/2025 11:43 PM EST [facility] Bacteria, UA 2+(A) None Seen 04/05/2025 11:43 PM [facility] Mucus 1+(A) Trace 04/05/2025 11:43 PM [facility] SQUAMOUS EPITHELIAL 0-5(A) None Seen, Rare /HPF 04/05/2025 11:43 PM [facility] Ca Oxalate [place], UA 2+(A) (none) 04/05/2025 11:43 PM EST [facility] Specimen Source Urine, Clean Catch 04/05/2025 11:43 PM [facility] Urine URINE SPECIMEN COLLECTION, CLEAN CATCH / Unknown 04/05/2025 11:04 PM EST 04/05/2025 11:04 PM EST us Keke Gar MD URINE ORDERABLES Final Re sult [facility] [address] [place] [address], [facility] [phone] from Last 3 Months Insurance [facility] Care Teams Call Center Associate Relationship Specialty Start Date End Date Sarika Moyer, STONE BANKER [address] [place] [address] PCP - General Nurse Practitioner 04/05/25
--- OUTSIDE RECORDS SUMMARY | 2025-04-21 08:41 | XMS_ITS | Encounter Summary ---
Author Organization [employer] ([place], [place], [place], [place], [place]) Address [address] [place] [address] Care Team Providers Care Sprinkler Repair Technician Name Role Phone Sarika Moyer TELECOMMUNICATIONS TECHNICIAN Primary Care Provider + Encounter Details Date Type Department Care Team (Latest Contact Info) Description 04/18/2025 Travel Social History Tobacco Use Types Packs/Day [...] on filedocumented in this encounter Care Teams Sprinkler Repair Technician Relationship Specialty Start Date End Date Sarika Moyer APRN [address] [place] [address] PCP - General Nurse Practitioner 04/05/25 documented as of this encounter
--- OUTSIDE RECORDS SUMMARY | 2025-04-21 08:42 | XMS_ITS | Clinical Summary ---
Author Organization [employer] ([place], [place], [place], [place], [place]) Address [address] [place] [address] Care Team Providers Care Ladies Attendant Name Role Phone Sarika Moyer FORKLIFT MECHANIC Primary Care Provider + Allergies Active Allergy Reactions Criticality Noted Date Comments Escitalopram 04/05/2025 Acetaminophen-Dm 04/05/2025 Medications No known medications Encounters Date Type Department Care Team Description 04/18/2025 7:23 PM EST - 04/18/2025 9:25 PM EST Emergency [facility] Emergency Department [address] [place], [place] [phone] Toy Egan MD Vaginal bleeding (Primary Dx) Discharge Disposition: Home or Self Care 04/18/2025 Travel 04/10/2025 11:39 PM EST - 04/11/2025 5:09 AM EST Emergency [facility] Emergency Department [address] [place] [phone] Farzad Stiles MD Ectopic (Primary Dx); Hypokalemia Discharge Disposition: Home or Self Care 04/10/2025 Travel 04/05/2025 10:43 PM EST - 04/06/2025 2:31 AM EST Emergency [facility] Emergency Department [address] [place] [phone] Keke Gar MD Ectopic (Primary Dx) Discharge [...] 04/18/2025 7:30 PM EST Plan of Treatment Health Maintenance [...] 05/21/2006, 08/26/2003, Additional history exists COVID-19 VACCINE (1 - 2023-2 5 season) 2025 Influenza Vaccine [...] Serum Quant 6 mIU/mL 9:06 PM EST [facility] Comment: Results of the HCG [...] 8:19 PM EST 04/18/2025 8:23 PM EST Toy Egan MD LAB BLOOD ORDERABLES Final Resu lt [facility] [address] [address] [phone] * US OB transvaginal (04/11/2025 2:29 AM [...] sac. IMPRESSION: Authenticated and Farzad Stiles MD [facility] ORDERABLES Edited Result - Final * (ABNORMAL) CBC with Auto Diff (04/11/2025 1:20 AM EST) Only the most recent of2 resultswithin the time period is included. WBC 7.3 4.8 - 10.8 K/ L 04/11/2025 1:27 AM EST [facility] RBC 4.32 3.50 - 5.20 M/ L 04/11/2025 1:27 AM EST [facility] Hemoglobin 12.7 11.7 - 15.8 GM/DL 04/11/2025 1:27 AM EST [facility] Hematocrit 37.8 35.0 - 47.0 % 04/11/2025 1:27 AM EST [facility] MCV 88 81 - 101 fL 04/11/2025 1:27 AM [facility] MCH 29.4 27.0 - 34.0 pg 04/11/2025 1:27 AM [facility] MCHC 33.6 32.0 - 36.0 GM/DL 04/11/2025 1:27 AM [facility] RDW 13.2 11.5 - 14.5 % 04/11/2025 1:27 AM [facility] Platelets 432(H) 150 - 400 K/CU MM 04/11/2025 1:27 AM [facility] MPV 9.1(L) 9.4 - 12.4 fL 04/11/2025 1:27 AM [facility] Nucleated Red Blood Cell 0.0 0 - 0.2 % 04/11/2025 1:27 AM [facility] % Neutros 55 37 - 80 % 04/11/2025 1:27 AM [facility] % Lymphs 34 10 - 50 % 04/11/2025 1:27 AM [facility] % Monos 9 5 - 13 % 04/11/2025 1:27 AM [facility] % Eos 1.5 0.0 - 7.0 % 04/11/2025 1:27 AM [facility] % Baso 1 0 - 3 % 04/11/2025 1:27 AM [facility] NRBC Absolute <0.01 0 - 0.012 K/ul 04/11/2025 1:27 AM [facility] # Neutros 4.04 2.00 - 6.90 K/ L 04/11/2025 1:27 AM [facility] # Lymphs 2.51 0.60 - 3.40 K/ L 04/11/2025 1:27 AM [facility] # Monos 0.62 0.00 - 0.90 K/ L 04/11/2025 1:27 AM [facility] # Eos 0.11 0.00 - 0.70 K/ L 04/11/2025 1:27 AM EST [facility] # Baso 0.04 0.00 - 0.20 K/ L 04/11/2025 1:27 AM EST [facility] % Imm Grans 0.10 % 04/11/2025 1:27 AM EST [facility] # IG 0.01(H) 0.00 - 0.00 K/uL 04/11/2025 1:27 AM EST [facility] Blood Venipuncture / Unknown 04/11/2025 1:20 AM EST 04/11/2025 1:23 AM EST Narrative [facility] - 04/11/2025 1:27 AM EST [...] Flag noted Atypical Lymph flag noted us Farazd Stiles MD LAB BLOOD ORDERABLES Final Resu lt [facility] [address] [place] [address] * (ABNORMAL) Comprehensive metabolic panel (04/11/2025 1:20 AM EST) Only the most recent of2 resultswithin the time period is included. Sodium 142 136 - 145 meq/L 04/11/2025 1:58 AM EST [facility] Potassium 3.1(L) 3.5 - 5.1 meq/L 04/11/2025 1:58 AM EST [facility] Chloride 105 98 - 107 meq/L 04/11/2025 1:58 AM EST [facility] CO2 28 21 - 32 meq/L 04/11/2025 1:58 AM [facility] Calcium 9.0 8.5 - 10.1 mg/dL 04/11/2025 1:58 AM [facility] Glucose 105(H) 74 - 100 mg/dL 04/11/2025 1:58 AM [facility] BUN 11 7 - 18 mg/dL 04/11/2025 1:58 AM [facility] Creatinine 0.61 0.55 - 1.10 mg/dL 04/11/2025 1:58 AM [facility] BUN/Creatinine 18 04/11/2025 1:58 AM [facility] Albumin 3.9 3.4 - 5.0 g/dL 04/11/2025 1:58 AM [facility] Alkaline Phosphatase 78 46 - 116 U/L 04/11/2025 1:58 AM [facility] ALT 12 12 - 78 U/L 04/11/2025 1:58 AM [facility] AST 11(L) 15 - 37 U/L 04/11/2025 1:58 AM [facility] Total Bilirubin 0.4 0.2 - 1.0 mg/dL 04/11/2025 1:58 AM [facility] Protein, Total 7.1 6.4 - 8.2 gm/dL 04/11/2025 1:58 AM [facility] Anion Gap 12 11 - 22 04/11/2025 1:58 AM [facility] A/G Ratio 1.2 04/11/2025 1:58 AM [facility] Globulin 3.2 g/dL 04/11/2025 1:58 AM [facility] Osmolality Calc 282.9 mOsm/kg 1:58 AM [facility] eGFR (mL/min/1.73m2) >60 >=60 mL/min/1.7 3m2 04/11/2025 1:58 AM [facility] Comment:ESTIMATED GFR IS NOT ACCURATE CREATININE CLEARANCE IN PREDICTING GLOMERULAR FILTRATION RATE. ESTIMATED GFR IS NOT APPLICABLE FOR DIALYSIS PATIENTS. Blood Venipuncture / Unknown 04/11/2025 1:20 AM EST 04/11/2025 1:23 AM EST Farzad Stiles MD LAB BLOOD ORDERABLES Final Resu lt [facility] [address] [id number], [facility] [phone] * (ABNORMAL) Urinalysis w/Microscopic (04/05/2025 11:04 PM EST) Color, UA Yellow 04/05/2025 11:43 PM EST [facility] Clarity, UA Clear 04/05/2025 11:43 PM [facility] Specific [place], UA 1.025 1.002 - 1.030 04/05/2025 11:43 PM [facility] pH, UA 6.0 5.0 - 9.0 04/05/2025 11:43 PM [facility] Leukocytes, UA Negative Negative 04/05/2025 11:43 PM [facility] Nitrite, UA Negative Negative 04/05/2025 11:43 PM [facility] Protein, UA 1+(A) Negative 04/05/2025 11:43 PM [facility] Glucose, UA Negative Negative 04/05/2025 11:43 PM [facility] Ketones, UA Trace(A) Negative 04/05/2025 11:43 PM [facility] Urobilinogen, UA 0.2 mg/dL Normal 04/05/2025 11:43 PM [facility] Bilirubin, UA Negative Negative 04/05/2025 11:43 PM [facility] Blood, UA 3+(A) Negative 04/05/2025 11:43 PM [facility] RBC, UA 5-10(A) None Seen, Rare /HPF 04/05/2025 11:43 PM [facility] WBC, UA 0-5 None Seen, Occasional , 0-5 /HPF 04/05/2025 11:43 PM [facility] Bacteria, UA 2+(A) None Seen 04/05/2025 11:43 PM [facility] Mucus 1+(A) Trace 04/05/2025 11:43 PM EST [facility] SQUAMOUS EPITHELIAL 0-5(A) None Seen, Rare /HPF 04/05/2025 11:43 PM EST [facility] Ca Oxalate [place], UA 2+(A) (none) 04/05/2025 11:43 PM EST [facility] Specimen Source Urine, Clean Catch 04/05/2025 11:43 PM EST [facility] Urine URINE SPECIMEN COLLECTION, CLEAN CATCH / Unknown 04/05/2025 11:04 PM EST 04/05/2025 11:04 PM EST us Keke Gar MD URINE ORDERABLES Final Re sult [facility] [address] [place] [address], [facility] [phone] from Last 3 Months Insurance [facility] Care Teams Ladies Attendant Relationship Specialty Start Date End Date Sarika Moyer, FORKLIFT MECHANIC [address] [place], [place] [id number] PCP - General Nurse Practitioner 04/05/25
== END 2025-04-21 23:59 | disposition home or self-care (01) ==
LOC: LAB 08:13
PROVIDERS: PCP Nurse Practitioner Family; Visit Provider Obstetrics & Gynecology
DX: O00.90 Unspecified ectopic pregnancy without intrauterine pregnancy (principal); Z3A.00 Weeks of gestation of pregnancy not specified
CPT/HCPCS: 36415; 84702

== ENCOUNTER 2025-04-26 09:21 | Outpatient (CLI) | payer OTHER, SELFPAY ==
--- OUTSIDE RECORDS SUMMARY | 2025-03-27 19:35 | XMS_ITS | Encounter Summary ---
Author Organization Healthcare Address [address] [place] [address] Care Team Providers Care Mailroom Associate Name Role Phone Sarika Moyer ISAIAH Primary Care Provider + Reason for Visit * Reason Comments Pelvic Pain Encounter Details Date Type Department Care Team (Late st Contact Info) Description 03/27/2025 8:35 PM EDT - 03/28/2025 1:22 AM EDT Emergency [facility] Emergency Department [address] [place] [address] Rose Cortes MD [address] [place] [address] of unknown anatomic location (Primary Dx) Discharge [...] as able. Please increase your water intake. [place] use of warm and/or cold compresses. Primary [...] here is available to you via the [employer] Internet portal. Please make sure that you [...] 24 y.o. with PUL being followed at [facility] who presents for RLQ pain. Patient reports that this is her first . She was having her beta hCG trended for pregnancyof unknown location, with the trend showing an inappropriate rise. Per [facility] records reviewed by ED MICHAEL, on 03/25/25 beta hCG was 568, down from 701. At this time patient received a dose of IM methotrexate. Yesterday morning/afternoon, patient reports that she had increased right lower quadrant/pelvic pain with associated nausea. At [facility] yesterday, beta hCG was found to [...] - Patient with PUL being followed at [facility] - Beta hCG trend shown to be inappropriately rising > 03/17: 258 > 03/19: 276 > 03/20: 370 > 03/21: 342 > 03/24: 701 > 03/25: 568 -- Dose of methotrexate 03/25 -- > 03/27: 543 - Pt with increased RLQ pain 03/27 prompting her to present first to [facility] where beta was noted to have decreased slightly from 03/25. TVUS not directly reviewed, however records indicatea 1.5 cm unknown structure was seen in the R adnexa. - Patient was discharged home from [facility], but due to persistent pain presented [...] with patient that her beta hCG at [facility] today was encouraging. Explained that often [...] Dispo: stable for discharge home from a HOSPICE SUPERINTENDENT standpoint. Thank you for including us in the care of this patient. This consult was staffed with Dr. Bowers. Please message on-call HOSPICE SUPERINTENDENT resident via [email or web address] Secure Chat or page [phone] (M-F 6a-6p) or [phone] (nights/weekends) for questions or concerns regarding this patient's care. Ivon Marmolejo MD PGY3 Obstetrics and Gynecology [1] Past Medical History: Diagnosis Date Other specified health status No pertinent past medical history [2] Past Surgical History: Procedure Laterality Date DENTAL SURGERY N/A Dental surgery from [facility] TONSILLECTOMY N/A Tonsillectomy from [employer] [3] Family History Problem Relation Name Age [...] SOA, and urinary symptoms. Medical records from [facility] reviewed: 03/26/2025 -- HCG trends recorded (03/17 -- 258, 03/19--276. 03/20--370. 03/21--342. 03/24--701. 03/25--568.), documented a 1gm Methotrexate given IM on 03/25/2025. 03/27/2025 -- TVUS with1.5cm unknown structure in the right adenxa, 03/27 -- HCG 543. History provided by: Patient language interpreter used: No Patient History Past Medical History[1] [...] does not include homicidal or suicidal ideation. [place] Coma Scale Score: 15 ED Course & [...] Abnormality Status --------- ------ ED HIV 1/2 Antibody/Anti...[[id number]] Normal Final result Please view results for [...] 11:57 PM MDM: Patient seen by the [facility] physician and followed-up by myself. In summary: NARRATIVE: Patient is a 24-year-old female who presents with complaints of diffuse right-sided abdominal discomfort. Has been seen multiple times at [facility] and had HCGs done. Has not had an appropriate doubling. Was given a dose of IM methotrexate a couple of days ago. Had an ult rasound done earlier today which did still document a 1.5 cm mass in the right adnexa and hCG in the mid 500s. Patient otherwise had a reassuring exam and H&H and was discharged for outpatient wax ball knock out worker follow-up. Was offered some hydroxyzine at that time, but deferred. Patient presented to our ER for 2nd opinion of her own accord. H&H stable. HCG still in the 600range. Transvaginal ultrasound does not note a right adnexal mass at this time. Given unclear hCG trend and patient concern, wax ball knock out worker was consulted. Patient signed out pending final wax ball knock out worker recommendations. Clinical Impressions as of 03/28/2533 of [...] mg Oral Given Ivana Loredo PA-C EMR Dragon/Embroidery Operator disclaimer: Much of this encounter note is an electronic network contractor of spoken language to printed text. Electronic network contractor of spoken language may permit erroneous, or [...] as able. Please increase your water intake. [place] use of warm and/or cold compresses. Primary [...] here is available to you via the [employer] Internet portal. Please make sure that you are registered for access to this. Disposition Discharge AVS (Yi Snapshot) - Printed 03/28/2025 Follow-Ups Go to Sarika Moyer APRN; As needed Follow up with [facility] Obstetrics & Gynecology (Obstetrics and Gynecology) [...] 03/27/2025 11:50 PM Final report signed by eLlia Lacy MD on 03/27/2025 11:57 PM Narrative [...] Reactive Non Reactive 03/27/2025 9:26 PM EDT [facility] Comment:Screening for HIV 1 & 2 antibodies, and P24 antigen is NONREACTIVE. No confirmatory testing is required. Blood Venous blood specimen / Unknown Venipuncture / Unknown 03/27/2025 8:31 PM EDT 03/27/2025 8:44 PM EDT Result [facility] us Rose Cortes MD LAB BLOOD ORDERABLES Final Resu lt [facility] [address] [place] [address] * Hepatitis C Antibody - ED (03/27/2025 8:31 PM EDT) Hepatitis C Antibody Negative Negative 03/27/2025 9:26 PM EDT [facility] Blood Venous blood specimen / Unknown Venipuncture / Unknown 03/27/2025 8:31 PM EDT 03/27/2025 8:44 PM EDT Result [facility] us Rose Cortes MD LAB BLOOD ORDERABLES Final Resu lt [facility] [address] [place] [address] * Type and screen (03/27/2025 8:31 PM [...] TEST ORDERABLES Final Result Performing Organization Address [facility] de Phone Number BLOOD BANK [address] [place] [address], [place] * (ABNORMAL) hCG, quantitative, (03/27/2025 8:31 PM EDT) hCG, Total Beta 626.2(H) <5 mIU/mL 03/27/2025 9:22 PM EDT [facility] Blood Venous blood specimen / Unknown Venipuncture / Unknown 03/27/2025 8:31 PM EDT 03/27/2025 8:41 PM EDT Narrative [facility] - 03/27/2025 9:22 PM [...] ORDERABLES Final Resu lt Performing Organization Address City/[facility]/ZIP Co de Phone Number [facility] [address] [place] [address] * (ABNORMAL) CBC w/diff (03/27/2025 8:31 PM EDT) WBC Count 11.76(H) 3.70 - 10.30 10*3/uL LAB HEMATOLOGY METHOD 03/27/2025 8:44 PM EDT [facility] RBC Count 4.82 3.90 - 5.20 10*6/uL LAB HEMATOLOGY METHOD 03/27/2025 8:44 PM EDT [facility] HGB 14.2 11.2 - 15.7 g/dL LAB HEMATOLOGY METHOD 03/27/2025 8:44 PM EDT [facility] HCT 39.9 34.0 - 45.0 % LAB HEMATOLOGY METHOD 03/27/2025 8:44 PM EDT [facility] Platelet Count 523(H) 155 - 369 10*3/uL LAB HEMATOLOGY METHOD 03/27/2025 8:44 PM EDT [facility] MCV 83 79 - 98 fL LAB HEMATOLOGY METHOD 03/27/2025 8:44 PM EDT [facility] MCH 29.5 26.0 - 32.0 pg LAB HEMATOLOGY METHOD 03/27/2025 8:44 PM EDT [facility] MCHC 35.6(H) 30.7 - 35.5 g/dL LAB HEMATOLOGY METHOD 03/27/2025 8:44 PM EDT [facility] RDW 12.2 11.5 - 14.5 % LAB HEMATOLOGY METHOD 03/27/2025 8:44 PM EDT [facility] MPV 9.3 8.8 - 12.5 fL LAB HEMATOLOGY METHOD 03/27/2025 8:44 PM EDT [facility] nRBC 0.0 <=0.0 per 100 WBCs LAB HEMATOLOGY METHOD 03/27/2025 8:44 PM EDT [facility] Differential Type Automated LAB HEMATOLOGY METHOD 03/27/2025 8:44 PM EDT [facility] Neutrophils % 71 % LAB HEMATOLOGY METHOD 03/27/2025 8:44 PM EDT [facility] Lymphocytes % 25 % LAB HEMATOLOGY METHOD 03/27/2025 8:44 PM EDT [facility] Monocytes % 4 % LAB HEMATOLOGY METHOD 03/27/2025 8:44 PM EDT [facility] Eosinophils % 0 % LAB HEMATOLOGY METHOD 03/27/2025 8:44 PM EDT [facility] Basophils % 0 % LAB HEMATOLOGY METHOD 03/27/2025 8:44 PM EDT [facility] Immature Granulocytes % 0 % LAB HEMATOLOGY METHOD 03/27/2025 8:44 PM EDT [facility] Neutrophils Absolute 8.17(H) 1.60 - 6.10 10*3/uL LAB HEMATOLOGY METHOD 03/27/2025 8:44 PM EDT [facility] Lymphocytes Absolute 2.96 1.20 - 3.90 10*3/uL LAB HEMATOLOGY METHOD 03/27/2025 8:44 PM EDT [facility] Monocytes Absolute 0.52 0.30 - 0.90 10*3/uL LAB HEMATOLOGY METHOD 03/27/2025 8:44 PM EDT [facility] Eosinophils Absolute 0.03 0.00 - 0.50 10*3/uL LAB HEMATOLOGY METHOD 03/27/2025 8:44 PM EDT [facility] Basophils Absolute 0.05 0.00 - 0.10 10*3/uL LAB HEMATOLOGY METHOD 03/27/2025 8:44 PM EDT [facility] Immature Granulocytes Absolute 0.03 0.00 - 0.06 10*3/uL LAB HEMATOLOGY METHOD 03/27/2025 8:44 PM EDT [facility] Blood Venous blood specimen / Unknown Venipuncture / Unknown 03/27/2025 8:31 PM EDT 03/27/2025 8:41 PM EDT Narrative [facility] - 03/27/2025 8:44 PM EDT Therapeutic decision making should be based on absolute values, rather than percentages. us Rose Cortes MD LAB BLOOD ORDERABLES Final Resu lt [facility] [address] [place] [address] * (ABNORMAL) CMP (03/27/2025 8:31 PM EDT) Glucose, Plasma 96 74 - 99 mg/dL 03/27/2025 9:22 PM EDT [facility] BUN, Plasma 11 7 - 21 mg/dL 03/27/2025 9:22 PM EDT [facility] Creatinine, Plasma 0.48(L) 0.60 - 1.10 mg/dL 03/27/2025 9:22 PM EDT [facility] BUN/Creatinine Ratio 23 03/27/2025 9:22 PM EDT [facility] Sodium, Plasma 136 136 - 145 mmol/L 03/27/2025 9:22 PM EDT [facility] Potassium, Plasma 3.1(L) 3.6 - 4.9 mmol/L 03/27/2025 9:22 PM EDT [facility] Chloride, Plasma 100 97 - 107 mmol/L 03/27/2025 9:22 PM EDT [facility] CO2, Plasma 20(L) 22 - 29 mmol/L 03/27/2025 9:22 PM EDT [facility] Anion Gap 16 6 - 16 mmol/L 03/27/2025 9:22 PM EDT [facility] Total Calcium, Plasma 9.8 8.9 - 10.2 mg/dL 03/27/2025 9:22 PM EDT [facility] Total Protein 7.7 6.3 - 7.9 g/dL 03/27/2025 9:22 PM EDT [facility] Albumin, Plasma 4.9 3.5 - 5.2 g/dL 03/27/2025 9:22 PM EDT [facility] AST, Plasma 17 10 - 35 U/L 03/27/2025 9:22 PM EDT [facility] ALT, Plasma 8(L) 10 - 35 U/L 03/27/2025 9:22 PM EDT [facility] Alkaline Phosphatase, Plasma 102 35 - 104 U/L 03/27/2025 9:22 PM EDT [facility] Total Bilirubin, Plasma 1.3(H) 0.2 - 1.1 mg/dL 03/27/2025 9:22 PM EDT [facility] eGFRcr 137.5 mL/min/1.7 3m*2 03/27/2025 9:22 PM EDT [facility] Comment:Reported eGFRcr in m L/min/1.73m2 is based the CKD-EPI 2020 equation that does not use a race coefficient. Blood Venous blood specimen / Unknown Venipuncture / Unknown 03/27/2025 8:31 PM EDT 03/27/2025 8:41 PM EDT us Rose Cortes MD LAB BLOOD ORDERABLES Final Resu lt [facility] [address] [place] [address] documented in this encounter Visit Diagnoses Diagnosis [...] Foss) documented in this encounter Care Teams Mailroom Associate Relationship Specialty Start Date End Date Sarika Moyer APRN [address] [id number] PCP - General 10/14/20 documented as of this encounter
--- OUTSIDE RECORDS SUMMARY | 2025-04-05 22:43 | XMS_ITS | Encounter Summary ---
Author Organization [employer] ([place], [place], [place], [place], [place]) Address [address] [place] [address] Care Team Providers Care Social Studies Department Chair Name Role Phone Sarika Moyer APRN Primary [...] EST - 04/06/2025 2:31 AM EST Emergency [facility] Emergency Department [address] [place] [phone] Keke Gar MD [address] [place] [address] Ectopic (Primary Dx) Discharge Disposition: Home or [...] be sent through Care Everywhere. * Ectopic Wkbv-op-Sfvd (Nepalese) documented in this encounter ED Notes * [...] are negative. 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 IMPRESSION: Authenticated and Keke Gar MD [facility] US ORDERABLES Edited Result - Final * (ABNORMAL) Comprehensive metabolic panel (04/05/2025 11:30 PM EST) Sodium 140 136 - 145 meq/L 04/06/2025 12:03 AM [facility] Potassium 3.3(L) 3.5 - 5.1 meq/L 04/06/2025 12:03 AM [facility] Chloride 102 98 - 107 meq/L 04/06/2025 12:03 AM [facility] CO2 25 21 - 32 meq/L 04/06/2025 12:03 AM [facility] Calcium 9.5 8.5 - 10.1 mg/dL 04/06/2025 12:03 AM [facility] Glucose 106(H) 74 - 100 mg/dL 04/06/2025 12:03 AM [facility] BUN 12 7 - 18 mg/dL 04/06/2025 12:03 AM [facility] Creatinine 0.60 0.55 - 1.10 mg/dL 04/06/2025 12:03 AM [facility] BUN/Creatinine 20 04/06/2025 12:03 AM [facility] Albumin 4.5 3.4 - 5.0 g/dL 04/06/2025 12:03 AM [facility] Alkaline Phosphatase 91 46 - 116 U/L 04/06/2025 12:03 AM [facility] ALT 10(L) 12 - 78 U/L 04/06/2025 12:03 AM [facility] AST 14(L) 15 - 37 U/L 04/06/2025 12:03 AM [facility] Total Bilirubin 0.3 0.2 - 1.0 mg/dL 04/06/2025 12:03 AM [facility] Protein, Total 8.0 6.4 - 8.2 gm/dL 04/06/2025 12:03 AM [facility] Anion Gap 16 11 - 22 04/06/2025 12:03 AM [facility] A/G Ratio 1.3 04/06/2025 12:03 AM [facility] Globulin 3.5 g/dL 04/06/2025 12:03 AM [facility] Osmolality Calc 279.6 mOsm/kg 12:03 AM [facility] eGFR (mL/min/1.73m2) >60 >=60 mL/min/1.7 3m2 04/06/2025 12:03 AM [facility] Comment:ESTIMATED GFR IS NOT ACCURATE CREATININE CLEARANCE IN PREDICTING GLOMERULAR FILTRATION RATE. ESTIMATED GFR IS NOT APPLICABLE FOR DIALYSIS PATIENTS. Blood Venipuncture / Unknown 04/05/2025 11:30 PM EST 04/05/2025 11:41 PM EST us Keke Gar MD LAB BLOOD ORDERABLES Lainey mckay Result [facility] [address] [id number] [phone] * (ABNORMAL) CBC with Auto Diff (04/05/2025 11:30 PM EST) WBC 9.8 4.8 - 10.8 K/ L 04/05/2025 11:45 PM [facility] RBC 4.72 3.50 - 5.20 M/ L 04/05/2025 11:45 PM [facility] Hemoglobin 13.8 11.7 - 15.8 GM/DL 04/05/2025 11:45 PM [facility] Hematocrit 40.9 35.0 - 47.0 % 04/05/2025 11:45 PM [facility] MCV 87 81 - 101 fL 04/05/2025 11:45 PM [facility] MCH 29.2 27.0 - 34.0 pg 04/05/2025 11:45 PM [facility] MCHC 33.7 32.0 - 36.0 GM/DL 04/05/2025 11:45 PM [facility] RDW 13.1 11.5 - 14.5 % 04/05/2025 11:45 PM [facility] Platelets 511(H) 150 - 400 K/CU MM 04/05/2025 11:45 PM [facility] MPV 9.2(L) 9.4 - 12.4 fL 04/05/2025 11:45 PM [facility] Nucleated Red Blood Cell 0.0 0 - 0.2 % 04/05/2025 11:45 PM [facility] % Neutros 65 37 - 80 % 04/05/2025 11:45 PM [facility] % Lymphs 27 10 - 50 % 04/05/2025 11:45 PM [facility] % Monos 6 5 - 13 % 04/05/2025 11:45 PM [facility] % Eos 0.8 0.0 - 7.0 % 04/05/2025 11:45 PM [facility] % Baso 1 0 - 3 % 04/05/2025 11:45 PM [facility] NRBC Absolute <0.01 0 - 0.012 K/ul 04/05/2025 11:45 PM [facility] # Neutros 6.35 2.00 - 6.90 K/ L 04/05/2025 11:45 PM EST [facility] # Lymphs 2.68 0.60 - 3.40 K/ L 04/05/2025 11:45 PM EST [facility] # Monos 0.62 0.00 - 0.90 K/ L 04/05/2025 11:45 PM EST [facility] # Eos 0.08 0.00 - 0.70 K/ L 04/05/2025 11:45 PM EST [facility] # Baso 0.05 0.00 - 0.20 K/ L 04/05/2025 11:45 PM EST [facility] % Imm Grans 0.20 % 04/05/2025 11:45 PM EST [facility] # IG 0.02(H) 0.00 - 0.00 K/uL 04/05/2025 11:45 PM EST [facility] Blood Venipuncture / Unknown 04/05/2025 11:30 PM EST 04/05/2025 11:41 PM EST Narrative [facility] - 04/05/2025 11:45 PM EST [...] MD LAB BLOOD ORDERABLES Lainey l Result [facility] [address] [place], [place] [id number], [facility] [phone] * (ABNORMAL) Urinalysis w/Microscopic (04/05/2025 11:04 PM EST) Color, UA Yellow 04/05/2025 11:43 PM EST [facility] Clarity, UA Clear 04/05/2025 11:43 PM [facility] Specific [place], UA 1.025 1.002 - 1.030 04/05/2025 11:43 PM [facility] pH, UA 6.0 5.0 - 9.0 04/05/2025 11:43 PM [facility] Leukocytes, UA Negative Negative 04/05/2025 11:43 PM [facility] Nitrite, UA Negative Negative 04/05/2025 11:43 PM [facility] Protein, UA 1+(A) Negative 04/05/2025 11:43 PM [facility] Glucose, UA Negative Negative 04/05/2025 11:43 PM [facility] Ketones, UA Trace(A) Negative 04/05/2025 11:43 PM [facility] Urobilinogen, UA 0.2 mg/dL Normal 04/05/2025 11:43 PM [facility] Bilirubin, UA Negative Negative 04/05/2025 11:43 PM [facility] Blood, UA 3+(A) Negative 04/05/2025 11:43 PM [facility] RBC, UA 5-10(A) None Seen, Rare /HPF 04/05/2025 11:43 PM [facility] WBC, UA 0-5 None Seen, Occasional , 0-5 /HPF 04/05/2025 11:43 PM [facility] Bacteria, UA 2+(A) None Seen 04/05/2025 11:43 PM [facility] Mucus 1+(A) Trace 04/05/2025 11:43 PM [facility] SQUAMOUS EPITHELIAL 0-5(A) None Seen, Rare /HPF 04/05/2025 11:43 PM [facility] Ca Oxalate [place], UA 2+(A) (none) 04/05/2025 11:43 PM [facility] Specimen Source Urine, Clean Catch 04/05/2025 11:43 PM [facility] Urine URINE SPECIMEN COLLECTION, CLEAN CATCH / Unknown 04/05/2025 11:04 PM EST 04/05/2025 11:04 PM EST us Keke Gar MD URINE ORDERABLES Final Re sult [facility] [address] [id number], [facility] [phone] documented in this encounter Visit Diagnoses Diagnosis Ectopic - Primary Unspecified ectopic without intrauterine documented in this encounter Care Teams Social Studies Department Chair Relationship Specialty Start Date End Date Sarika Moyer, CRUISE GUIDE [address] [place] [address] PCP - General Nurse Practitioner 04/05/25 documented as of this encounter
--- OUTSIDE RECORDS SUMMARY | 2025-04-10 23:39 | XMS_ITS | Encounter Summary ---
Author Organization [employer] ([place], [place], [place], [place], [place]) Address [address] [place] [address] Care Team Providers Care Direct Selling Counselor Name Role Phone Sarika Moyer SECURITY POLICE OFFICER Primary Care Provider + Reason for Visit [...] EST - 04/11/2025 5:09 AM EST Emergency Emergency Department [address] [place] [phone] Farzad Stiles MD [address] [place] [address] Ectopic (Primary Dx); Hypokalemia Discharge Disposition: Home [...] Follow-up with your primary care doctor or cognos administrator, call for appointment. Return to the emergency department for any new or worsening symptoms. STRIAL ELECTRICIAN JOURNEYMAN * Attachments The following attachments cannot be sent through Care Everywhere. * Hypokalemia (Finnish) * Ectopic [id number] (Finnish) documented in this encounter ED Notes * [...] 2. Hypokalemia Farzad Stiles MD 04/11/25 0508 STRIAL ELECTRICIAN JOURNEYMAN documented in this encounter Plan of Treatment [...] sac. IMPRESSION: Authenticated and Farzad Stiles MD [facility] ORDERABLES Edited Result - Final * hCG, quantitative, (04/11/2025 1:20 AM EST) HCG Serum Quant 133 mIU/mL 1:58 AM EST [facility] Comment: Results of the [...] MD LAB BLOOD ORDERABLES Final Resu lt [facility] [address] [place] [address] * (ABNORMAL) Comprehensive metabolic panel (04/11/2025 1:20 AM EST) Sodium 142 136 - 145 meq/L 04/11/2025 1:58 AM EST [facility] Potassium 3.1(L) 3.5 - 5.1 meq/L 04/11/2025 1:58 AM EST [facility] Chloride 105 98 - 107 meq/L 04/11/2025 1:58 AM EST [facility] CO2 28 21 - 32 meq/L 04/11/2025 1:58 AM EST [facility] Calcium 9.0 8.5 - 10.1 mg/dL 04/11/2025 1:58 AM EST [facility] Glucose 105(H) 74 - 100 mg/dL 04/11/2025 1:58 AM EST [facility] BUN 11 7 - 18 mg/dL 04/11/2025 1:58 AM EST [facility] Creatinine 0.61 0.55 - 1.10 mg/dL 04/11/2025 1:58 AM [facility] BUN/Creatinine 18 04/11/2025 1:58 AM [facility] Albumin 3.9 3.4 - 5.0 g/dL 04/11/2025 1:58 AM [facility] Alkaline Phosphatase 78 46 - 116 U/L 04/11/2025 1:58 AM [facility] ALT 12 12 - 78 U/L 04/11/2025 1:58 AM [facility] AST 11(L) 15 - 37 U/L 04/11/2025 1:58 AM [facility] Total Bilirubin 0.4 0.2 - 1.0 mg/dL 04/11/2025 1:58 AM [facility] Protein, Total 7.1 6.4 - 8.2 gm/dL 04/11/2025 1:58 AM [facility] Anion Gap 12 11 - 22 04/11/2025 1:58 AM [facility] A/G Ratio 1.2 04/11/2025 1:58 AM [facility] Globulin 3.2 g/dL 04/11/2025 1:58 AM [facility] Osmolality Calc 282.9 mOsm/kg 1:58 AM [facility] eGFR (mL/min/1.73m2) >60 >=60 mL/min/1.7 3m2 04/11/2025 1:58 AM [facility] Comment:ESTIMATED GFR IS NOT ACCURATE CREATININE CLEARANCE IN PREDICTING GLOMERULAR FILTRATION RATE. ESTIMATED GFR IS NOT APPLICABLE FOR DIALYSIS PATIENTS. Blood Venipuncture / Unknown 04/11/2025 1:20 AM EST 04/11/2025 1:23 AM EST us Farzad Stiles MD LAB BLOOD ORDERABLES Final Resu lt [facility] [address] [place] [address], [facility] [phone] * (ABNORMAL) CBC with Auto Diff (04/11/2025 1:20 AM [facility]) WBC 7.3 4.8 - 10.8 K/ L 04/11/2025 1:27 AM [facility] RBC 4.32 3.50 - 5.20 M/ L 04/11/2025 1:27 AM [facility] Hemoglobin 12.7 11.7 - 15.8 GM/DL 04/11/2025 1:27 AM [facility] Hematocrit 37.8 35.0 - 47.0 % 04/11/2025 1:27 AM [facility] MCV 88 81 - 101 fL 04/11/2025 1:27 AM [facility] MCH 29.4 27.0 - 34.0 pg 04/11/2025 1:27 AM [facility] MCHC 33.6 32.0 - 36.0 GM/DL 04/11/2025 1:27 AM [facility] RDW 13.2 11.5 - 14.5 % 04/11/2025 1:27 AM [facility] Platelets 432(H) 150 - 400 K/CU MM 04/11/2025 1:27 AM [facility] MPV 9.1(L) 9.4 - 12.4 fL 04/11/2025 1:27 AM [facility] Nucleated Red Blood Cell 0.0 0 - 0.2 % 04/11/2025 1:27 AM [facility] % Neutros 55 37 - 80 % 04/11/2025 1:27 AM [facility] % Lymphs 34 10 - 50 % 04/11/2025 1:27 AM [facility] % Monos 9 5 - 13 % 04/11/2025 1:27 AM [facility] % Eos 1.5 0.0 - 7.0 % 04/11/2025 1:27 AM [facility] % Baso 1 0 - 3 % 04/11/2025 1:27 AM [facility] NRBC Absolute <0.01 0 - 0.012 K/ul 04/11/2025 1:27 AM EST [facility] # Neutros 4.04 2.00 - 6.90 K/ L 04/11/2025 1:27 AM EST [facility] # Lymphs 2.51 0.60 - 3.40 K/ L 04/11/2025 1:27 AM EST [facility] # Monos 0.62 0.00 - 0.90 K/ L 04/11/2025 1:27 AM EST [facility] # Eos 0.11 0.00 - 0.70 K/ L 04/11/2025 1:27 AM EST [facility] # Baso 0.04 0.00 - 0.20 K/ L 04/11/2025 1:27 AM EST [facility] % Imm Grans 0.10 % 04/11/2025 1:27 AM EST [facility] # IG 0.01(H) 0.00 - 0.00 K/uL 04/11/2025 1:27 AM EST [facility] Blood Venipuncture / Unknown 04/11/2025 1:20 AM EST 04/11/2025 1:23 AM EST Narrative [facility] - 04/11/2025 1:27 AM [...] MD LAB BLOOD ORDERABLES Final Resu lt [facility] [address] [place], [place] [address] [phone] documented in this encounter Visit Diagnoses Diagnosis [...] access) documented in this encounter Care Teams Direct Selling Counselor Relationship Specialty Start Date End Date Sarika Moyer, SECURITY POLICE OFFICER [address] [place] [address] PCP - General Nurse Practitioner 04/05/25 documented as of this encounter
--- OUTSIDE RECORDS SUMMARY | 2025-04-18 19:23 | XMS_ITS | Encounter Summary ---
Author Organization [employer] ([place], [place], [place], [place], [place]) Address [address] [place] [address] Care Team Providers Care Mounter Flutes And Piccolos Name Role Phone Sarika Moyer PHONE TECHNICIAN Primary Care Provider + Reason for Visit * Reason Comments Vaginal Bleeding Pt was diagnosed wit h an ectopic on March 25. States she is passing clots today. HCG was 11 yesterday. Encounter Details Date Type Department Care Team (Late st Contact Info) Description 04/18/2025 7:23 PM EST - 04/18/2025 9:25 PM EST Emergency [facility] Emergency Department [address] [place] [phone] Toy Egan MD [address] [place] [address] Vaginal bleeding (Primary Dx) Discharge Disposition: Home [...] through Care Everywhere. * Abnormal Uterine Bleeding [id number] (Tongan) documented in this encounter ED Notes * [...] PCP - General [address] [facility] [address] Next Steps: Schedule an appointment as soon as possible for a visit in 2 day(s) Electronically Signed By Toy Egan MD 04/18/252118 S ROOM ASSISTANT documented in this encounter Plan of Treatment Not on file documented as of this encounter Procedures Procedure Name Priority Date/Time Associated Diagnosis Comments HCG, QUANTITATIVE, STAT 04/18/2025 8:19 PM EST documented in this encounter Results * hCG, quantitative, (04/18/2025 8:19 PM EST) Pathologist [facility] HCG Serum Quant 6 mIU/mL 9:06 PM EST [facility] Comment: Results of the [...] MD LAB BLOOD ORDERABLES Final Resu lt [facility] [address] [place] [address], [facility] [phone] documented in this encounter Visit Diagnoses Diagnosis Vaginal bleeding- Primary Other specified noninflammatory disorder of vagina documented in this encounter Care Teams Mounter Flutes And Piccolos Relationship Specialty Start Date End Date Sarika Moyer, PHONE TECHNICIAN [address] [place] [address] PCP - General Nurse Practitioner 04/05/25 documented as of this encounter
--- OUTSIDE RECORDS SUMMARY | 2025-04-25 00:06 | XMS_ITS | Continuity of Care Document ---
Author Organization [facility] Phone Care Team Providers Care Toll Ticket Clerk Name Role Phone AARTI MCRAE Primary Care ALLERGIES AND ADVERSE REACTIONS ALLERGIES AND ADVERSE REACTIONS Code System Allergy Substance Adverse Reaction Date Reaction (Severity) Comment Status Reported By Updated By [id number] RXNorm Lexapro Adverse reaction to substance Not Specified active [id number] on 2025 11:22:33 PM [facility] robitussin (Free Text Allergy) Adverse reaction to substance Not Specified active [id number] on 2025 11:22:33 PM [facility] RESULTS Patient: GALILEA CABRERA Date of : 2000 5 LABORATORY RESULTS ORDER 100: HCG BETA QUANT (L OINC: 12076-8) ORDER DATE: 2025 6:09:00 PM [facility] Specimen Source: Serum/Plasm a Specimen Type: Acellular blo od (serum or plasma) specimen PERFORMING LAB: [address] [id number] Result Comment: Final Result Date: 2025 7:08:00 PM [facility] (TECH: CB) LOINC TEST [place] [id number] Choriogonadotropin.b e ta subunit [Mass/volume] in Serum or Plasma N 1 mIU/mL 0 mIU/mL - 5 mIU/mL 2025 7:08:00 PM [facility] (TECH: CB) LABORATORY NARRATIVE RESULTS Information is not available [...] Effective Dates Offered Cessation Comment Updated By [id number] Historical Tobacco smoking status Current Every Day Smoker [id number] on 2025 11:23:33 PM [facility] [id number] Historical Tobacco smoking status Unknown If Ever Smoked [id number] on June 10, 2024 7:44:25 PM [facility] [id number] Historical Tobacco smoking status Never Smoked [id number] on June 07, 2024 7:22:26 PM [facility] SOCIAL HISTORY - Gender Sex: Female SOCIAL HISTORY - Status : status i nformation is not available Intention in Next Year: intention information is not available SOCIAL HISTORY - Assessments Code System Description Status Date Value of Assessment Updated By Comment Assessment Information is no t available SOCIAL HISTORY - [place] Affiliation [place] information is not av ailable SOCIAL HISTORY [...] available. ENCOUNTERS ENCOUNTER INFORMATION Reason for Visit Not Specified Admission 2025 6:09:[address] [phone] Discharge April 24, 2025 6:09:00 PM [facility] DISCHARGED TO HOME OR SELF CARE ENCOUNTER DIAGNOSES Notes information is not clemente ilable. Code System Diagnosis Onset Date Diagnosis information is not available. ABSTRACT DIAGNOSES Code System Diagnosis Updated By Abatement Date Abstract Diagnosis informati on is not available. CARE TEAM Care Toll Ticket Clerk Role AARTI MCRAE Primary Care CARE TEAM CARE flavoring maker Role on Team Location Telecom Status Start Date End Date Updated By CLEMENTINA MÉNDEZ PCP normal 2025 6:09:25 PM [facility] April 24, 2025 6:09:00 PM [facility] [id number] on 2025 6:09:25 PM [facility]
--- OUTSIDE RECORDS SUMMARY | 2025-04-26 02:26 | XMS_ITS | Continuity of Care Document ---
Author Organization [facility] [employer] Phone Care Team Providers Care Director Of Solutions Architecture Name Role Phone AARTI MCRAE Primary Care CHRISTIAN HAIDER Unavailable CHRISTIAN HAIDER Admitting CHRISTIAN HAIDER Primary Attending ALLERGIES AND ADVERSE REACTIONS ALLERGIES AND ADVERSE REACTIONS Code System Allergy Substance Adverse Reaction Date Reaction (Severity) Comment Status Reported By Updated By [id number] RXNorm Lexapro Adverse reaction to substance Not Specified active [id number] on 2025 11:22:33 PM [facility] robitussin (Free Text Allergy) Adverse reaction to substance Not Specified active [id number] on 2025 11:22:33 PM [facility] MEDICATIONS HOME MEDICATIONS Status RXNORM NDC Medication Dose Route Frequency Dates Comments Reported By Updated By Patient not on Self-Medications [id number] on 2025 11:22:33 PM [facility] DISCHARGE MEDICATIONS Status RXNORM NDC Medication [...] Effective Dates Offered Cessation Comment Updated By [id number] Current Tobacco smoking status Current Every Day Smoker [id number] on 2025 11:23:33 PM [facility] [id number] Historical Tobacco smoking status Unknown If Ever Smoked [id number] on June 10, 2024 7:44:25 PM [facility] [id number] Historical Tobacco smoking status Never Smoked [id number] on June 07, 2024 7:22:26 PM UTC SOCIAL HISTORY - Gender Sex: Female SOCIAL HISTORY - Status : status i nformation is not available Intention in Next Year: intention information is not available SOCIAL HISTORY - Assessments Code System Description Status Date Value of Assessment Updated By Comment Assessment Information is no t available SOCIAL HISTORY - [place] Affiliation [place] information is not av ailable SOCIAL HISTORY [...] for each vital sign as of April 26, 2025 7:26:20 AM UTC Loinc Code Vital Sign Activity Date Result Updated By 8310-5 Body temperature April 23 1:14:00 PM UTC 97.5 [degF] 92469-9 Body weight Measured April 11:17:06 PM UTC 39.0 kg (86.0 lb) [id number] on 2025 11:17:06 PM UTC 8462-4 Diastolic blood pressure 2025 1:14:00 PM UTC 78.0 mm[Hg] 8867-4 Heart rate April 23 1:14:00 PM UTC 103 /min 76870-7 Oxygen saturation in Arterial blood by Pulse oximetry 2025 1:14:00 PM UTC 99.0 % 9279-1 Respiratory rate April 23 1:14:00 PM UTC 18 /min 8480-6 Systolic blood pressure 2025 1:14:00 PM UTC 127.0 mm[Hg] PEDIATRIC GROWTH CHART - VITAL SIGNS [...] available. ENCOUNTERS ENCOUNTER INFORMATION Reason for Visit PROBLEM Admission 2025 11:05:00 PM [place] C 9 [facility] [place] [id number] Discharge 2025 11:37:00 PM UT C DISCHARGED TO HOME OR SELF CARE ENCOUNTER DIAGNOSES Notes information is not clemente ilable. Code System Diagnosis Onset Date Diagnosis information is not available. ABSTRACT DIAGNOSES Code System Diagnosis Updated By Abatement Date O26.899 ICD10 OTHER SPECIFIED RELATED CONDITIONS, UNSPECIFIED TRIMESTER [id number] on April 26, 2025 7:24:26 AM UT R10.31 ICD10 RIGHT LOWER QUADRANT PAIN BI L3519 on April 26, 2025 7:24:26 AM UT O26.899 ICD10 OTHER SPECIFIED RELATED CONDITIONS, UNSPECIFIED TRIMESTER [id number] on April 26, 2025 7:24:26 AM UT O99.330 ICD10 SMOKING (TOBACCO ) COMPLICATING , UNSPECIFIED TRIMESTER [id number] on April 26, 2025 7:24:26 AM UT R10.31 ICD10 RIGHT LOWER QUADRANT PAIN BI L3519 on April 26, 2025 7:24:26 AM UT F17.290 ICD10 NICOTINE DEPENDE NCE, OTHER TOBACCO PRODUCT, UNCOMPLICATED [id number] on April 26, 2025 7:24:26 AM UT Z88.8 ICD10 ALLERGY STATUS T O OTHER DRUGS, MEDICAMENTS AND BIOLOGICAL SUBSTANCES [id number] on April 26, 2025 7:24:26 AM [facility] Z3A.00 ICD10 WEEKS OF GESTATI ON OF NOT SPECIFIED [id number] on April 26, 2025 7:24:26 AM [facility] CARE TEAM Care Director Of Solutions Architecture Role AARTI MCRAE Primary Care CHRISTIAN HAIDER Referring CHRISTIAN HAIDER Admitting CHRISTIAN HAIDER Primary Attending CARE TEAM CARE [employer] police launch commander Role on Team Location Telecom Status Start Date End Nickolas e Updated By VITALY GONZALES MD, MD Referring normal 2025 11:34:48 PM [facility] 2025 11:37:00 PM [facility] [id number] on 2025 11:34:48 PM [facility] VITALY GONZALES MD, MD Attending normal 2025 11:34:47 PM [facility] 2025 11:37:00 PM [facility] [id number] on 2025 11:34:48 PM UT VITALY GONZALES MD, MD Admitting normal 2025 11:34:47 PM UTC 2025 11:37:00 PM [facility] [id number] on 2025 11:34:48 PM [facility] CLEMENTINA FULLERP PCP normal 2025 11:06:19 PM UTC 2025 11:37:00 PM [facility] [id number] on 2025 11:34:48 PM [facility]
--- OUTSIDE RECORDS SUMMARY | 2025-04-26 09:26 | XMS_ITS | Encounter Summary ---
Author Organization Healthcare Address [address] [id number] Care Team Providers Care Salesperson [employer] Name Role Phone Sarika Moyer ENDOSCOPY SPECIALTY TECHNICIAN Primary Care Provider + Encounter Details [...] on filedocumented in this encounter Care Teams Salesperson [employer] Relationship Specialty Start Date End Date Sarika Moyer, ENDOSCOPY SPECIALTY TECHNICIAN [address] [place] [address] PCP - General 10/14/20 documented as of this encounter
--- OUTSIDE RECORDS SUMMARY | 2025-04-26 09:26 | XMS_ITS | Encounter Summary ---
Author Organization Healthcare Address [address] [place] [address] Care Team Providers Care Welfare Specialist Name Role Phone Sarika Moyer PUNCH PRESS FEEDER Primary Care Provider + Encounter Details Date Type Department Care Team ([facility] st Contact Info) Description 03/17/2025 Telephone Obstetrics & Gynecology [address] [place] [address] Chiki Cardenas MD [address] [place] [address] Social History Tobacco Use Types [...] on filedocumented in this encounter Care Teams Welfare Specialist Relationship Specialty Start Date End Date Sarika Moyer APRN [address] [place] [address] PCP - General 10/14/20 documented as of this encounter
--- OUTSIDE RECORDS SUMMARY | 2025-04-26 09:26 | XMS_ITS | Encounter Summary ---
Author Organization [employer] ([place], [place], [place], [place], [place]) Address [address] [place] [address] Care Team Providers Care Placement Manager Name Role Phone Sarika Moyer FIBER OPTIC ASSEMBLER Primary Care Provider + Encounter Details Date [...] on filedocumented in this encounter Care Teams Placement Manager Relationship Specialty Start Date End Date Sarika Moyer APRN [address] [place] [address] PCP - General Nurse Practitioner 04/05/25 documented as of this encounter
--- OUTSIDE RECORDS SUMMARY | 2025-04-26 09:26 | XMS_ITS | Encounter Summary ---
Author Organization [employer] ([place], [place], [place], [place], [place]) Address [address] [place] [address] Care Team Providers Care High School Counselor Name Role Phone Sarika Moyer CERTIFIED CREDIT COUNSELOR Primary Care Provider + Encounter Details Date [...] on filedocumented in this encounter Care Teams High School Counselor Relationship Specialty Start Date End Date Sarika Moyer APRN [address] [place] [address] PCP - General Nurse Practitioner 04/05/25 documented as of this encounter
--- OUTSIDE RECORDS SUMMARY | 2025-04-26 09:27 | XMS_ITS | Clinical Summary ---
Author Organization [facility] ([place], [place], [place], [place], [place]) Address [address] [place] [address] Care Team Providers Care Accounts Clerk Name Role Phone Sarika Moyer SALES TRAINER Primary Care Provider + Allergies Active Allergy Reactions Criticality Noted Date Comments Escitalopram 04/05/2025 Acetaminophen-Dm 04/05/2025 Medications No known medications Encounters Date Type Department Care Team Description 04/18/2025 7:23 PM EST - 04/18/2025 9:25 PM EST Emergency [facility] Emergency Department [address] [place], [place] [phone] Toy Egan MD Vaginal bleeding (Primary Dx) Discharge Disposition: Home or Self Care 04/18/2025 Travel 04/10/2025 11:39 PM EST - 04/11/2025 5:09 AM EST Emergency [facility] Emergency Department [address] [place] [phone] Farzad Stiles MD Ectopic (Primary Dx); Hypokalemia Discharge Disposition: Home or Self Care 04/10/2025 Travel 04/05/2025 10:43 PM EST - 04/06/2025 2:31 AM EST Emergency [facility] Emergency Department [address] [place] [phone] Keke Gar MD Ectopic (Primary Dx) Discharge [...] Quant 6 mIU/mL 9:06 PM EST [facility] Comment: Results of the [...] LAB BLOOD ORDERABLES Final Resu lt [facility] [address] [id number] [phone] * US OB transvaginal (04/11/2025 2:29 AM [...] 10.8 K/ L 04/11/2025 1:27 AM EST [facility] RBC 4.32 3.50 - 5.20 M/ L 04/11/2025 1:27 AM EST [facility] Hemoglobin 12.7 11.7 - 15.8 GM/DL 04/11/2025 1:27 AM EST [facility] Hematocrit 37.8 35.0 - 47.0 % 04/11/2025 1:27 AM EST [facility] MCV 88 81 - [...] 0 - 0.012 K/ul 04/11/2025 1:27 AM [facility] # Neutros 4.04 2.00 - 6.90 K/ L 04/11/2025 1:27 AM [facility] # Lymphs 2.51 0.60 - 3.40 K/ L 04/11/2025 1:27 AM [facility] # Monos 0.62 0.00 - 0.90 K/ L 04/11/2025 1:27 AM [facility] # Eos 0.11 0.00 - 0.70 K/ L 04/11/2025 1:27 AM EST [facility] # Baso 0.04 0.00 - 0.20 K/ L 04/11/2025 1:27 AM EST [facility] % Imm Grans 0.10 % 04/11/2025 1:27 AM EST [facility] # IG 0.01(H) 0.00 - 0.00 K/uL 04/11/2025 1:27 AM EST [facility] Blood Venipuncture / Unknown 04/11/2025 1:20 AM EST 04/11/2025 1:23 AM EST Narrative [facility] - 04/11/2025 1:27 AM [...] LAB BLOOD ORDERABLES Final Resu lt [facility] [address] [place] [address] * (ABNORMAL) Comprehensive metabolic panel (04/11/2025 1:20 AM EST) Only the most recent of2 resultswithin the time period is included. Sodium 142 136 - 145 meq/L 04/11/2025 1:58 AM EST [facility] Potassium 3.1(L) 3.5 - 5.1 meq/L 04/11/2025 1:58 AM EST [facility] Chloride 105 98 - 107 meq/L 04/11/2025 1:58 AM EST [facility] CO2 28 21 - 32 meq/L 04/11/2025 1:58 AM [facility] Calcium 9.0 8.5 - 10.1 mg/dL 04/11/2025 1:58 AM [facility] Glucose 105(H) 74 - 100 mg/dL 04/11/2025 1:58 AM [facility] BUN 11 7 - 18 mg/dL 04/11/2025 1:58 AM [facility] Creatinine 0.61 0.55 - 1.10 [...] LAB BLOOD ORDERABLES Final Resu lt [facility] [address] [id number], [facility] [phone] * (ABNORMAL) Urinalysis w/Microscopic (04/05/2025 11:04 PM EST) Color, UA Yellow 04/05/2025 11:43 PM EST [facility] Clarity, UA Clear 04/05/2025 11:43 PM [facility] Specific [place], UA 1.025 1.002 - 1.030 04/05/2025 11:43 [...] Mucus 1+(A) Trace 04/05/2025 11:43 PM EST [facility] SQUAMOUS EPITHELIAL 0-5(A) None Seen, Rare /HPF 04/05/2025 11:43 PM EST [facility] Ca Oxalate [place], UA 2+(A) (none) 04/05/2025 11:43 PM EST [facility] Specimen Source Urine, Clean Catch 04/05/2025 11:43 PM EST [facility] Urine URINE SPECIMEN COLLECTION, CLEAN CATCH / Unknown 04/05/2025 11:04 PM EST 04/05/2025 11:04 PM EST us Keke Gar MD URINE ORDERABLES Final Re sult [facility] [address] [place] [address], [facility] [phone] from Last 3 Months Insurance [facility] Care Teams Accounts Clerk Relationship Specialty Start Date End Date Sarika Moyer, SALES TRAINER [address] [place], [place] [id number] PCP - General Nurse Practitioner 04/05/25
--- OUTSIDE RECORDS SUMMARY | 2025-04-26 09:27 | XMS_ITS | Encounter Summary ---
Author Organization [employer] ([place], [place], [place], [place], [place]) Address [address] [place] [address] Care Team Providers Care Patient Transport Orderly Name Role Phone Sarika Moyer FOUNDRY EQUIPMENT MECHANIC Primary Care Provider + Encounter Details Date [...] on filedocumented in this encounter Care Teams Patient Transport Orderly Relationship Specialty Start Date End Date Sairka Moyer APRN [address] [place] [address] PCP - General Nurse Practitioner 04/05/25 documented as of this encounter
--- OUTSIDE RECORDS SUMMARY | 2025-04-26 09:27 | XMS_ITS | Referral Summary ---
Author Organization [employer] ([place], [place], [place], [place], [place]) Address [address] [place] [address] Care Team Providers Care Soft Top Installer Name Role Phone Sarika Moyer FOOTBALL SCOUT Primary Care Provider + Encounters Date Type Department Care Team Description 04/18/2025 Travel 04/18/2025 7:23 PM EST - 04/18/2025 9:25 PM EST Emergency [facility] Emergency Department [address] [place] [phone] Toy Egan MD Vaginal bleeding (Primary Dx) Discharge Disposition: Home or Self Care 04/10/2025 11:39 PM EST - 04/11/2025 5:09 AM EST Emergency [facility] Emergency Department [address] [place] [phone] Farzad Stiles MD Ectopic (Primary Dx); Hypokalemia Discharge Disposition: Home or Self Care 04/10/2025 Travel 04/05/2025 10:43 PM EST - 04/06/2025 2:31 AM EST Emergency [facility] Emergency Department [address] [place] [phone] Keke Gar MD Ectopic (Primary Dx) Discharge [...] Serum Quant 6 mIU/mL 9:06 PM EST [facility] Comment: [...] Resu lt [facility] [address] [place] [address] * US OB transvaginal (04/11/2025 2:29 AM [...] IMPRESSION: Authenticated and us Farzad Stiles MD [facility] ORDERABLES Edited Result - Final * (ABNORMAL) CBC with Auto Diff (04/11/2025 1:20 AM EST) Only the most recent of2 resultswithin the time period is included. WBC 7.3 4.8 - 10.8 K/ L 04/11/2025 1:27 AM [facility] RBC 4.32 3.50 - 5.20 M/ L 04/11/2025 1:27 AM [facility] Hemoglobin 12.7 11.7 - 15.8 GM/DL 04/11/2025 1:27 AM [facility] Hematocrit 37.8 35.0 - 47.0 % 04/11/2025 1:27 AM [facility] MCV 88 81 - 101 fL 04/11/2025 1:27 AM [facility] MCH 29.4 27.0 - 34.0 pg 04/11/2025 1:27 AM [facility] MCHC 33.6 32.0 - 36.0 GM/DL 04/11/2025 1:27 AM [facility] RDW 13.2 11.5 - 14.5 % 04/11/2025 1:27 AM [facility] Platelets 432(H) 150 - 400 K/CU MM 04/11/2025 1:27 AM [facility] MPV 9.1(L) 9.4 - 12.4 fL 04/11/2025 1:27 AM [facility] Nucleated Red Blood Cell 0.0 0 - 0.2 % 04/11/2025 1:27 AM [facility] % Neutros 55 37 - 80 % 04/11/2025 1:27 AM [facility] % Lymphs 34 10 - 50 % 04/11/2025 1:27 AM [facility] % Monos 9 5 - 13 % 04/11/2025 1:27 AM [facility] % Eos 1.5 0.0 - 7.0 % 04/11/2025 1:27 AM [facility] % Baso 1 0 - 3 % 04/11/2025 1:27 AM [facility] NRBC Absolute <0.01 0 - 0.012 K/ul 04/11/2025 1:27 AM [facility] # Neutros 4.04 2.00 - 6.90 K/ L 04/11/2025 1:27 AM [facility] # Lymphs 2.51 0.60 - 3.40 K/ L 04/11/2025 1:27 AM [facility] # Monos 0.62 0.00 - 0.90 K/ L 04/11/2025 1:27 AM [facility] # Eos 0.11 0.00 - 0.70 K/ L 04/11/2025 1:27 AM [facility] # Baso 0.04 0.00 - 0.20 K/ L 04/11/2025 1:27 AM [facility] % Imm Grans 0.10 % 04/11/2025 1:27 AM [facility] # IG 0.01(H) 0.00 - 0.00 K/uL 04/11/2025 1:27 AM [facility] Blood Venipuncture / Unknown 04/11/2025 1:20 AM EST 04/11/2025 1:23 AM [facility] - 04/11/2025 1:27 AM EST When [...] Resu lt [facility] [address] [place] [address], [facility] [phone] * (ABNORMAL) Comprehensive metabolic panel (04/11/2025 1:20 AM EST) Only the most recent of2 resultswithin the time period is included. Sodium 142 136 - 145 meq/L 04/11/2025 1:58 AM EST [facility] Potassium 3.1(L) 3.5 - 5.1 meq/L 04/11/2025 1:58 AM [facility] Chloride 105 98 - 107 [...] 0.55 - 1.10 mg/dL 04/11/2025 1:58 AM [facility] BUN/Creatinine 18 04/11/2025 1:58 AM EST [facility] Albumin 3.9 3.4 - 5.0 g/dL 04/11/2025 1:58 AM EST [facility] Alkaline Phosphatase 78 46 - 116 U/L 04/11/2025 1:58 AM EST [facility] ALT 12 12 - 78 U/L 04/11/2025 1:58 AM [facility] AST 11(L) 15 - 37 U/L 04/11/2025 1:58 AM EST [facility] Total Bilirubin 0.4 0.2 - 1.0 mg/dL 04/11/2025 1:58 AM [facility] Protein, Total 7.1 6.4 - 8.2 gm/dL 04/11/2025 1:58 AM [facility] Anion Gap 12 11 - 22 04/11/2025 1:58 AM [facility] A/G Ratio 1.2 04/11/2025 1:58 AM [facility] Globulin 3.2 g/dL 04/11/2025 1:58 AM [facility] Osmolality Calc 282.9 mOsm/kg 1:58 AM [facility] eGFR (mL/min/1.73m2) >60 >=60 mL/min/1.7 3m2 04/11/2025 1:58 AM [facility] Comment:ESTIMATED GFR IS NOT ACCURATE CREATININE CLEARANCE IN PREDICTING GLOMERULAR FILTRATION RATE. ESTIMATED GFR IS NOT APPLICABLE FOR DIALYSIS PATIENTS. Blood Venipuncture / Unknown 04/11/2025 1:20 AM EST 04/11/2025 1:23 AM EST us Farzad Stiles MD LAB BLOOD ORDERABLES Final Resu lt [facility] [address] [place] [address], [facility] [phone] * (ABNORMAL) Urinalysis w/Microscopic (04/05/2025 11:04 PM EST) Color, UA Yellow 04/05/2025 11:43 PM [facility] Clarity, UA Clear 04/05/2025 11:43 PM [facility] Specific [place], UA 1.025 1.002 - 1.030 04/05/2025 11:43 PM [facility] pH, UA 6.0 5.0 - 9.0 04/05/2025 11:43 PM [facility] Leukocytes, UA Negative Negative 04/05/2025 11:43 PM EST [facility] Nitrite, UA Negative Negative 04/05/2025 11:43 PM [facility] Protein, UA 1+(A) Negative 04/05/2025 11:43 PM [facility] Glucose, UA Negative Negative 04/05/2025 11:43 PM EST [facility] Ketones, UA Trace(A) Negative 04/05/2025 11:43 PM [facility] Urobilinogen, UA 0.2 mg/dL Normal 04/05/2025 11:43 PM EST [facility] Bilirubin, UA Negative Negative 04/05/2025 11:43 PM [facility] Blood, UA 3+(A) Negative 04/05/2025 11:43 PM [facility] RBC, UA 5-10(A) None Seen, Rare /HPF 04/05/2025 11:43 PM [facility] WBC, UA 0-5 None Seen, Occasional , 0-5 /HPF 04/05/2025 11:43 PM EST [facility] Bacteria, UA 2+(A) None Seen 04/05/2025 11:43 PM [facility] Mucus 1+(A) Trace 04/05/2025 11:43 PM [facility] SQUAMOUS EPITHELIAL 0-5(A) None Seen, Rare /HPF 04/05/2025 11:43 PM [facility] Ca Oxalate [place], UA 2+(A) (none) 04/05/2025 11:43 PM EST [facility] Specimen Source Urine, Clean Catch 04/05/2025 11:43 PM [facility] Urine URINE SPECIMEN COLLECTION, CLEAN CATCH / Unknown 04/05/2025 11:04 PM EST 04/05/2025 11:04 PM EST us Keke Gar MD URINE ORDERABLES Final Re sult [facility] [address] [place] [address], [facility] [phone] from Last 3 Months Insurance [facility] Care Teams Soft Top Installer Relationship Specialty Start Date End Date Sarika Moyer, FOOTBALL SCOUT [address] [place] [address] PCP - General Nurse Practitioner 04/05/25
--- OUTSIDE RECORDS SUMMARY | 2025-04-26 09:27 | XMS_ITS | Clinical Summary ---
Author Organization Healthcare Address [address] [id number] Care Team Providers Care Disaster Response Director Name Role Phone Sarika Moyer [employer] Primary Care Provider + Allergies Active Allergy Reactions Criticality Noted Date Comments Escitalopram Anaphylaxis High 03/27/2025 Robitussin Dm Max Day-Night Anxiety Low 03/27/20 Medications No known medications Active Problems Comments Yes No known active problems Encounters Date Type Department Care Team Description 03/27/2025 8:35 PM EDT - 03/28/2025 1:22 AM EDT Emergency [facility] Emergency Department [address] [place] [address] Rose Cortes MD of unknown anatomic location (Primary Dx) Discharge Disposition: Home or Self Care 03/27/2025 Travel 03/17/2025 Telephone Obstetrics & Gynecology [address] [place] [phone] Chiki Cardenas MD from Last 3 [...] 10/19/2024 10/19/2014, 05/21/2006, 08/26/2003, Additional history exists [id number] Vaccine ( - season) 2025 UKY-Influenza Vaccine [...] Resu lt [facility] [address] [place] [address] * Hepatitis C Antibody - ED (03/27/2025 8:31 PM EDT) Hepatitis C Antibody Negative Negative 03/27/2025 9:26 PM EDT [facility] Blood Venous blood specimen / Unknown Venipuncture / Unknown 03/27/2025 8:31 PM EDT 03/27/2025 8:44 PM EDT us Rose Cortes MD LAB BLOOD ORDERABLES Final Resu lt [facility] [address] [place] [address] * (ABNORMAL) CBC w/diff (03/27/2025 8:31 PM EDT) Pathologist [facility] WBC Count 11.76(H) 3.70 - 10.30 10*3/uL [...] ORDERABLES Final Resu lt Performing Organization Address City/[facility]/ZIP Co de Phone Number [facility] [address] [place] [address] * Type and screen (03/27/2025 8:31 PM [...] TEST ORDERABLES Final Result Performing Organization Address [facility] de Phone Number BLOOD BANK [address] [place] [address] * (ABNORMAL) hCG, quantitative, (03/27/2025 8:31 PM EDT) hCG, Total Beta 626.2(H) <5 mIU/mL 03/27/2025 9:22 PM EDT [facility] Blood Venous blood specimen / Unknown Venipuncture [...] Resu lt [facility] [address] [place] [address] * (ABNORMAL) CMP (03/27/2025 8:31 PM EDT) [...] lt [facility] [address] [place] [address] from Last 3 Months Insurance [facility] [employer] Care Teams Disaster Response Director Relationship Specialty Start Date End Date Sarika Moyer APRN [address] [address] PCP - General 10/14/20
== END 2025-04-26 23:59 | disposition home or self-care (01) ==
LOC: LAB 09:21
PROVIDERS: PCP Nurse Practitioner Family; Visit Provider Obstetrics & Gynecology
DX: O00.90 Unspecified ectopic pregnancy without intrauterine pregnancy (principal); N93.9 Abnormal uterine and vaginal bleeding, unspecified
CPT/HCPCS: 36415; 84702

== ENCOUNTER 2025-04-28 22:48 | Emergency (ER) | payer OTHER, SELFPAY ==
--- OUTSIDE RECORDS SUMMARY | 2025-03-27 19:35 | XMS_ITS | Encounter Summary ---
Author Organization Healthcare Address [address] [place] [address] Care Team Providers Care Life Guard Name Role Phone Sarika Moyer ISAIAH Primary Care Provider + Reason for Visit * Reason Comments Pelvic Pain Encounter Details Date Type Department Care Team (Late st Contact Info) Description 03/27/2025 8:35 PM EDT - 03/28/2025 1:22 AM EDT Emergency [facility] Emergency Department [address] [place] [address] Rose Cortes MD [address] [place] [address] of unknown anatomic location (Primary Dx) Discharge [...] as able. Please increase your water intake. [place] use of warm and/or cold compresses. Primary [...] here is available to you via the [employer] Internet portal. Please make sure that you [...] 24 y.o. with PUL being followed at [facility] who presents for RLQ pain. Patient reports that this is her first . She was having her beta hCG trended for pregnancyof unknown location, with the trend showing an inappropriate rise. Per [facility] records reviewed by ED MICHAEL, on 03/25/25 beta hCG was 568, down from 701. At this time patient received a dose of IM methotrexate. Yesterday morning/afternoon, patient reports that she had increased right lower quadrant/pelvic pain with associated nausea. At [facility] yesterday, beta hCG was found [...] - Patient with PUL being followed at [facility] - Beta hCG trend shown to be inappropriately rising > 03/17: 258 > 03/19: 276 > 03/20: 370 > 03/21: 342 > 03/24: 701 > 03/25: 568 -- Dose of methotrexate 03/25 -- > 03/27: 543 - Pt with increased RLQ pain 03/27 prompting her to present first to [facility] where beta was noted to have decreased slightly from 03/25. TVUS not directly reviewed, however records indicatea 1.5 cm unknown structure was seen in the R adnexa. - Patient was discharged home from [facility], but due to persistent pain [...] with patient that her beta hCG at [facility] today was encouraging. Explained that [...] stable for discharge home from a MANAGER OPERATIONS AND PROCUREMENT standpoint. Thank you for including us in the care of this patient. This consult was staffed with Dr. Bowers. Please message on-call MANAGER OPERATIONS AND PROCUREMENT resident via [employer] Secure Chat or page [phone] (M-F 6a-6p) or [phone] (nights/weekends) for questions or concerns regarding this patient's care. Ivon Marmolejo MD PGY3 Obstetrics and Gynecology [1] Past Medical History: Diagnosis Date Other specified health status No pertinent past medical history [2] Past Surgical History: Procedure Laterality Date DENTAL SURGERY N/A Dental surgery from [facility] TONSILLECTOMY N/A Tonsillectomy from [facility] [3] Family History Problem Relation Name Age [...] the findings and plan as documented. Eric Bowres MD Minimally Invasive Gynecologic Surgery * ED [...] SOA, and urinary symptoms. Medical records from [facility] reviewed: 03/26/2025 -- HCG trends recorded (03/17 -- 258, 03/19--276. 03/20--370. 03/21--342. 03/24--701. 03/25--568.), documented a 1gm Methotrexate given IM on 03/25/2025. 03/27/2025 -- TVUS with1.5cm unknown structure in the right adenxa, 03/27 -- HCG 543. 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 [place] Coma Scale Score: 15 ED Course & [...] Abnormality Status --------- ------ ED HIV 1/2 Antibody/Anti...[[id number]] Normal Final result Please view results for [...] 11:57 PM MDM: Patient seen by the [facility] physician and followed-up by myself. In summary: NARRATIVE: Patient is a 24-year-old female who presents with complaints of diffuse right-sided abdominal discomfort. Has been seen multiple times at [facility] and had HCGs done. Has not had an appropriate doubling. Was given a dose of IM methotrexate a couple of days ago. Had an ult rasound done earlier today which did still document a 1.5 cm mass in the right adnexa and hCG in the mid 500s. Patient otherwise had a reassuring exam and H&H and was discharged for outpatient relief master follow-up. Was offered some hydroxyzine at that time, but deferred. Patient presented to our ER for 2nd opinion of her own accord. H&H stable. HCG still in the 600range. Transvaginal ultrasound does not note a right adnexal mass at this time. Given unclear hCG trend and patient concern, relief master was consulted. Patient signed out pending final relief master recommendations. Clinical Impressions as of 03/28/2533 of [...] mg Oral Given Ivana Loredo PA-C EMR Dragon/[employer] Dehydrator Operator disclaimer: Much of this encounter note is an electronic external grinder tender of spoken language to printed text. Electronic external grinder tender of spoken language may permit erroneous, or [...] as able. Please increase your water intake. [place] use of warm and/or cold compresses. Primary [...] here is available to you via the [employer] Internet portal. Please make sure that you are registered for access to this. Disposition Discharge AVS (Romansh Snapshot) - Printed 03/28/2025 Follow-Ups Go to Sarika Moyer APRN; As needed Follow up with [facility] Obstetrics & Gynecology (Obstetrics and Gynecology) - [...] Reactive Non Reactive 03/27/2025 9:26 PM EDT [facility] Comment:Screening for HIV 1 & 2 antibodies, and P24 antigen is NONREACTIVE. No confirmatory testing is required. Blood Venous blood specimen / Unknown Venipuncture / Unknown 03/27/2025 8:31 PM EDT 03/27/2025 8:44 PM EDT Result [facility] us Rose Cortes MD LAB BLOOD ORDERABLES Final Resu lt [facility] [address] [place] [address] * Hepatitis C Antibody - ED (03/27/2025 8:31 PM EDT) Hepatitis C Antibody Negative Negative 03/27/2025 9:26 PM EDT [facility] Blood Venous blood specimen / Unknown Venipuncture / Unknown 03/27/2025 8:31 PM EDT 03/27/2025 8:44 PM EDT Result [facility] us Rose Cortes MD LAB BLOOD ORDERABLES Final Resu lt [facility] [address] [place] [address] * Type and screen (03/27/2025 8:31 PM [...] TEST ORDERABLES Final Result Performing Organization Address [facility] de Phone Number BLOOD BANK [address] [place] [address], [place] * (ABNORMAL) hCG, quantitative, (03/27/2025 8:31 PM EDT) hCG, Total Beta 626.2(H) <5 mIU/mL 03/27/2025 9:[address] [facility] Blood Venous blood specimen / Unknown Venipuncture / Unknown 03/27/2025 8:31 PM EDT 03/27/2025 8:41 PM EDT Narrative [facility] - 03/27/2025 9:22 PM EDT [...] ORDERABLES Final Resu lt Performing Organization Address City/[facility]/ZIP Co de Phone Number [facility] [address] [place] [address] * (ABNORMAL) CBC w/diff (03/27/2025 8:31 PM EDT) WBC Count 11.76(H) 3.70 - 10.30 10*3/uL LAB HEMATOLOGY METHOD 03/27/2025 8:44 PM EDT [facility] RBC Count 4.82 3.90 - 5.20 10*6/uL LAB HEMATOLOGY METHOD 03/27/2025 8:44 PM EDT [facility] HGB 14.2 11.2 - 15.7 g/dL LAB HEMATOLOGY METHOD 03/27/2025 8:44 PM EDT [facility] HCT 39.9 34.0 - 45.0 % LAB HEMATOLOGY METHOD 03/27/2025 8:44 PM EDT [facility] Platelet Count 523(H) 155 - 369 10*3/uL LAB HEMATOLOGY METHOD 03/27/2025 8:44 PM EDT [facility] MCV 83 79 - 98 fL LAB HEMATOLOGY METHOD 03/27/2025 8:44 PM EDT [facility] MCH 29.5 26.0 - 32.0 pg LAB HEMATOLOGY METHOD 03/27/2025 8:44 PM EDT [facility] MCHC 35.6(H) 30.7 - 35.5 g/dL LAB HEMATOLOGY METHOD 03/27/2025 8:44 PM EDT [facility] RDW 12.2 11.5 - 14.5 % LAB HEMATOLOGY METHOD 03/27/2025 8:44 PM EDT [facility] MPV 9.3 8.8 - 12.5 fL LAB HEMATOLOGY METHOD 03/27/2025 8:44 PM EDT [facility] nRBC 0.0 <=0.0 per 100 WBCs LAB HEMATOLOGY METHOD 03/27/2025 8:44 PM EDT [facility] Differential Type Automated LAB HEMATOLOGY METHOD 03/27/2025 8:44 PM EDT [facility] Neutrophils % 71 % LAB HEMATOLOGY METHOD 03/27/2025 8:44 PM EDT [facility] Lymphocytes % 25 % LAB HEMATOLOGY METHOD 03/27/2025 8:44 PM EDT [facility] Monocytes % 4 % LAB HEMATOLOGY METHOD 03/27/2025 8:44 PM EDT [facility] Eosinophils % 0 % LAB HEMATOLOGY METHOD 03/27/2025 8:44 PM EDT [facility] Basophils % 0 % LAB HEMATOLOGY METHOD 03/27/2025 8:44 PM EDT [facility] Immature Granulocytes % 0 % LAB HEMATOLOGY METHOD 03/27/2025 8:44 PM EDT [facility] Neutrophils Absolute 8.17(H) 1.60 - 6.10 10*3/uL LAB HEMATOLOGY METHOD 03/27/2025 8:44 PM EDT [facility] Lymphocytes Absolute 2.96 1.20 - 3.90 10*3/uL LAB HEMATOLOGY METHOD 03/27/2025 8:44 PM EDT [facility] Monocytes Absolute 0.52 0.30 - 0.90 10*3/uL LAB HEMATOLOGY METHOD 03/27/2025 8:44 PM EDT [facility] Eosinophils Absolute 0.03 0.00 - 0.50 10*3/uL LAB HEMATOLOGY METHOD 03/27/2025 8:44 PM EDT [facility] Basophils Absolute 0.05 0.00 - 0.10 10*3/uL LAB HEMATOLOGY METHOD 03/27/2025 8:44 PM EDT [facility] Immature Granulocytes Absolute 0.03 0.00 - 0.06 10*3/uL LAB HEMATOLOGY METHOD 03/27/2025 8:44 PM EDT [facility] Blood Venous blood specimen / Unknown Venipuncture / Unknown 03/27/2025 8:31 PM EDT 03/27/2025 8:41 PM EDT Narrative [facility] - 03/27/2025 8:44 PM EDT Therapeutic decision making should be based on absolute values, rather than percentages. us Rose Cortes MD LAB BLOOD ORDERABLES Final Resu lt [facility] [address] [place] [address] * (ABNORMAL) CMP (03/27/2025 8:31 PM EDT) Glucose, Plasma 96 74 - 99 mg/dL 03/27/2025 9:22 PM EDT [facility] BUN, Plasma 11 7 - 21 mg/dL 03/27/2025 9:22 PM EDT [facility] Creatinine, Plasma 0.48(L) 0.60 - 1.10 mg/dL 03/27/2025 9:22 PM EDT [facility] BUN/Creatinine Ratio 23 03/27/2025 9:22 PM EDT [facility] Sodium, Plasma 136 136 - 145 mmol/L 03/27/2025 9:22 PM EDT [facility] Potassium, Plasma 3.1(L) 3.6 - 4.9 mmol/L 03/27/2025 9:22 PM EDT [facility] Chloride, Plasma 100 97 - 107 mmol/L 03/27/2025 9:22 PM EDT [facility] CO2, Plasma 20(L) 22 - 29 mmol/L 03/27/2025 9:22 PM EDT [facility] Anion Gap 16 6 - 16 mmol/L 03/27/2025 9:22 PM EDT [facility] Total Calcium, Plasma 9.8 8.9 - 10.2 mg/dL 03/27/2025 9:22 PM EDT [facility] Total Protein 7.7 6.3 - 7.9 g/dL 03/27/2025 9:22 PM EDT [facility] Albumin, Plasma 4.9 3.5 - 5.2 g/dL 03/27/2025 9:22 PM EDT [facility] AST, Plasma 17 10 - 35 U/L 03/27/2025 9:22 PM EDT [facility] ALT, Plasma 8(L) 10 - 35 U/L 03/27/2025 9:22 PM EDT [facility] Alkaline Phosphatase, Plasma 102 35 - 104 U/L 03/27/2025 9:22 PM EDT [facility] Total Bilirubin, Plasma 1.3(H) 0.2 - 1.1 mg/dL 03/27/2025 9:22 PM EDT [facility] eGFRcr 137.5 mL/min/1.7 3m*2 03/27/2025 9:22 PM EDT [facility] Comment:Reported eGFRcr in m L/min/1.73m2 is based the CKD-EPI 2020 equation that does not use a race coefficient. Blood Venous blood specimen / Unknown Venipuncture / Unknown 03/27/2025 8:31 PM EDT 03/27/2025 8:41 PM EDT us Rose Cortes MD LAB BLOOD ORDERABLES Final Resu lt [facility] [address] [place] [address] documented in this encounter Visit Diagnoses Diagnosis [...] Foss) documented in this encounter Care Teams Life Guard Relationship Specialty Start Date End Date Sarika Moyer APRN [address] [place] [id number] PCP - General 10/14/20 documented as of this encounter
--- OUTSIDE RECORDS SUMMARY | 2025-04-05 22:43 | XMS_ITS | Encounter Summary ---
Author Organization [employer] ([place], [place], [place], [place], [place]) Address [address] [place] [address] Care Team Providers Care Oim Consultant Name Role Phone Sarika Moyer APRN [...] EST - 04/06/2025 2:31 AM EST Emergency [facility] Emergency Department [address] [place] [phone] Keke Gar MD [address] [place] [address] Ectopic (Primary Dx) Discharge Disposition: Home or [...] be sent through Care Everywhere. 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 IMPRESSION: Authenticated and Keke Gar MD [facility] ORDERABLES Edited Result - Final * (ABNORMAL) Comprehensive metabolic panel (04/05/2025 11:30 PM EST) Sodium 140 136 - 145 meq/L 04/06/2025 12:03 AM [facility] Potassium 3.3(L) 3.5 - 5.1 meq/L 04/06/2025 12:03 AM [facility] Chloride 102 98 - 107 meq/L 04/06/2025 12:03 AM [facility] CO2 25 21 - 32 meq/L 04/06/2025 12:03 AM [facility] Calcium 9.5 8.5 - 10.1 mg/dL 04/06/2025 12:03 AM [facility] Glucose 106(H) 74 - 100 mg/dL 04/06/2025 12:03 AM [facility] BUN 12 7 - 18 mg/dL 04/06/2025 12:03 AM [facility] Creatinine 0.60 0.55 - 1.10 mg/dL 04/06/2025 12:03 AM [facility] BUN/Creatinine 20 04/06/2025 12:03 AM [facility] Albumin 4.5 3.4 - 5.0 g/dL 04/06/2025 12:03 AM [facility] Alkaline Phosphatase 91 46 - 116 U/L 04/06/2025 12:03 AM [facility] ALT 10(L) 12 - 78 U/L 04/06/2025 12:03 AM [facility] AST 14(L) 15 - 37 U/L 04/06/2025 12:03 AM [facility] Total Bilirubin 0.3 0.2 - 1.0 mg/dL 04/06/2025 12:03 AM [facility] Protein, Total 8.0 6.4 - 8.2 gm/dL 04/06/2025 12:03 AM [facility] Anion Gap 16 11 - 22 04/06/2025 12:03 AM [facility] A/G Ratio 1.3 04/06/2025 12:03 AM [facility] Globulin 3.5 g/dL 04/06/2025 12:03 AM [facility] Osmolality Calc 279.6 mOsm/kg 12:03 AM [facility] eGFR (mL/min/1.73m2) >60 >=60 mL/min/1.7 3m2 04/06/2025 12:03 AM [facility] Comment:ESTIMATED GFR IS NOT ACCURATE CREATININE CLEARANCE IN PREDICTING GLOMERULAR FILTRATION RATE. ESTIMATED GFR IS NOT APPLICABLE FOR DIALYSIS PATIENTS. Blood Venipuncture / Unknown 04/05/2025 11:30 PM EST 04/05/2025 11:41 PM EST us Keke Gar MD LAB BLOOD ORDERABLES Lainey mckay Result [facility] [id number] [phone] * (ABNORMAL) CBC with Auto Diff (04/05/2025 11:30 PM EST) WBC 9.8 4.8 - 10.8 K/ L 04/05/2025 11:45 PM [facility] RBC 4.72 3.50 - 5.20 M/ L 04/05/2025 11:45 PM [facility] Hemoglobin 13.8 11.7 - 15.8 GM/DL 04/05/2025 11:45 PM [facility] Hematocrit 40.9 35.0 - 47.0 % 04/05/2025 11:45 PM [facility] MCV 87 81 - 101 fL 04/05/2025 11:45 PM [facility] MCH 29.2 27.0 - 34.0 pg 04/05/2025 11:45 PM [facility] MCHC 33.7 32.0 - 36.0 GM/DL 04/05/2025 11:45 PM [facility] RDW 13.1 11.5 - 14.5 % 04/05/2025 11:45 PM [facility] Platelets 511(H) 150 - 400 K/CU MM 04/05/2025 11:45 PM [facility] MPV 9.2(L) 9.4 - 12.4 fL 04/05/2025 11:45 PM [facility] Nucleated Red Blood Cell 0.0 0 - 0.2 % 04/05/2025 11:45 PM [facility] % Neutros 65 37 - 80 % 04/05/2025 11:45 PM [facility] % Lymphs 27 10 - 50 % 04/05/2025 11:45 PM [facility] % Monos 6 5 - 13 % 04/05/2025 11:45 PM [facility] % Eos 0.8 0.0 - 7.0 % 04/05/2025 11:45 PM [facility] % Baso 1 0 - 3 % 04/05/2025 11:45 PM [facility] NRBC Absolute <0.01 0 - 0.012 K/ul 04/05/2025 11:45 PM [facility] # Neutros 6.35 2.00 - 6.90 K/ L 04/05/2025 11:45 PM EST [facility] # Lymphs 2.68 0.60 - 3.40 K/ L 04/05/2025 11:45 PM EST [facility] # Monos 0.62 0.00 - 0.90 K/ L 04/05/2025 11:45 PM EST [facility] # Eos 0.08 0.00 - 0.70 K/ L 04/05/2025 11:45 PM EST [facility] # Baso 0.05 0.00 - 0.20 K/ L 04/05/2025 11:45 PM EST [facility] % Imm Grans 0.20 % 04/05/2025 11:45 PM EST [facility] # IG 0.02(H) 0.00 - 0.00 K/uL 04/05/2025 11:45 PM EST [facility] Blood Venipuncture / Unknown 04/05/2025 11:30 PM EST 04/05/2025 11:41 PM EST Narrative [facility] - 04/05/2025 11:45 PM EST When [...] MD LAB BLOOD ORDERABLES Lainey l Result [facility] [address] [place], [place] [id number], [facility] [phone] * (ABNORMAL) Urinalysis w/Microscopic (04/05/2025 11:04 PM EST) Color, UA Yellow 04/05/2025 11:43 PM EST [facility] Clarity, UA Clear 04/05/2025 11:43 PM [facility] Specific [place], UA 1.025 1.002 - 1.030 04/05/2025 11:43 PM [facility] pH, UA 6.0 5.0 - 9.0 04/05/2025 11:43 PM [facility] Leukocytes, UA Negative Negative 04/05/2025 11:43 PM [facility] Nitrite, UA Negative Negative 04/05/2025 11:43 PM [facility] Protein, UA 1+(A) Negative 04/05/2025 11:43 PM [facility] Glucose, UA Negative Negative 04/05/2025 11:43 PM [facility] Ketones, UA Trace(A) Negative 04/05/2025 11:43 PM [facility] Urobilinogen, UA 0.2 mg/dL Normal 04/05/2025 11:43 PM [facility] Bilirubin, UA Negative Negative 04/05/2025 11:43 PM [facility] Blood, UA 3+(A) Negative 04/05/2025 11:43 PM [facility] RBC, UA 5-10(A) None Seen, Rare /HPF 04/05/2025 11:43 PM [facility] WBC, UA 0-5 None Seen, Occasional , 0-5 /HPF 04/05/2025 11:43 PM [facility] Bacteria, UA 2+(A) None Seen 04/05/2025 11:43 PM [facility] Mucus 1+(A) Trace 04/05/2025 11:43 PM [facility] SQUAMOUS EPITHELIAL 0-5(A) None Seen, Rare /HPF 04/05/2025 11:43 PM [facility] Ca Oxalate [place], UA 2+(A) (none) 04/05/2025 11:43 PM [facility] Specimen Source Urine, Clean Catch 04/05/2025 11:43 PM [facility] Urine URINE SPECIMEN COLLECTION, CLEAN CATCH / Unknown 04/05/2025 11:04 PM EST 04/05/2025 11:04 PM EST us Keke Gar MD URINE ORDERABLES Final Re sult [facility] [address] [id number], [facility] [phone] documented in this encounter Visit Diagnoses Diagnosis Ectopic - Primary Unspecified ectopic without intrauterine documented in this encounter Care Teams Oim Consultant Relationship Specialty Start Date End Date Sarika Moyer, MANAGER MARKET DEVELOPMENT [address] [place] [address] PCP - General Nurse Practitioner 04/05/25 documented as of this encounter
--- OUTSIDE RECORDS SUMMARY | 2025-04-10 23:39 | XMS_ITS | Encounter Summary ---
Author Organization [employer] ([place], [place], [place], [place], [place]) Address [address] [place] [address] Care Team Providers Care Dictating Machine Typist Name Role Phone Sarika Moyer VOCATIONAL SCHOOL TEACHER Primary Care Provider + Reason for Visit [...] EST - 04/11/2025 5:09 AM EST Emergency [facility] Emergency Department [address] [place] [phone] Farzad Stiles MD [address] [place] [address] Ectopic (Primary Dx); Hypokalemia Discharge Disposition: Home [...] Follow-up with your primary care doctor or angle shearer, call for appointment. Return to the emergency department for any new or worsening symptoms. MENT STAPLER * Attachments The following attachments cannot be sent through Care Everywhere. * Hypokalemia (Chilean) * Ectopic [id number] (Chilean) documented in this encounter ED Notes * [...] 2. Hypokalemia Farzad Stiles MD 04/11/25 0508 MENT STAPLER documented in this encounter Plan of Treatment [...] sac. IMPRESSION: Authenticated and Farzad Stiles MD [facility] ORDERABLES Edited Result - Final * hCG, quantitative, (04/11/2025 1:20 AM EST) HCG Serum Quant 133 mIU/mL 1:58 AM EST [facility] Comment: Results of the HCG [...] MD LAB BLOOD ORDERABLES Final Resu lt [facility] [address] [place] [address] * (ABNORMAL) Comprehensive metabolic panel (04/11/2025 1:20 AM EST) Sodium 142 136 - 145 meq/L 04/11/2025 1:58 AM EST [facility] Potassium 3.1(L) 3.5 - 5.1 meq/L 04/11/2025 1:58 AM EST [facility] Chloride 105 98 - 107 meq/L 04/11/2025 1:58 AM EST [facility] CO2 28 21 - 32 meq/L 04/11/2025 1:58 AM EST [facility] Calcium 9.0 8.5 - 10.1 mg/dL 04/11/2025 1:58 AM EST [facility] Glucose 105(H) 74 - 100 mg/dL 04/11/2025 1:58 AM EST [facility] BUN 11 7 - 18 mg/dL 04/11/2025 1:58 AM EST [facility] Creatinine 0.61 0.55 - 1.10 mg/dL 04/11/2025 1:58 AM [facility] BUN/Creatinine 18 04/11/2025 1:58 AM [facility] Albumin 3.9 3.4 - 5.0 g/dL 04/11/2025 1:58 AM [facility] Alkaline Phosphatase 78 46 - 116 U/L 04/11/2025 1:58 AM [facility] ALT 12 12 - 78 U/L 04/11/2025 1:58 AM [facility] AST 11(L) 15 - 37 U/L 04/11/2025 1:58 AM [facility] Total Bilirubin 0.4 0.2 - 1.0 mg/dL 04/11/2025 1:58 AM [facility] Protein, Total 7.1 6.4 - 8.2 gm/dL 04/11/2025 1:58 AM [facility] Anion Gap 12 11 - 22 04/11/2025 1:58 AM [facility] A/G Ratio 1.2 04/11/2025 1:58 AM [facility] Globulin 3.2 g/dL 04/11/2025 1:58 AM [facility] Osmolality Calc 282.9 mOsm/kg 1:58 AM [facility] eGFR (mL/min/1.73m2) >60 >=60 mL/min/1.7 3m2 04/11/2025 1:58 AM [facility] Comment:ESTIMATED GFR IS NOT ACCURATE CREATININE CLEARANCE IN PREDICTING GLOMERULAR FILTRATION RATE. ESTIMATED GFR IS NOT APPLICABLE FOR DIALYSIS PATIENTS. Blood Venipuncture / Unknown 04/11/2025 1:20 AM EST 04/11/2025 1:23 AM EST us Farzad Stiles MD LAB BLOOD ORDERABLES Final Resu lt [facility] [address] [place] [address], [facility] [phone] * (ABNORMAL) CBC with Auto Diff (04/11/2025 1:20 AM [facility]) WBC 7.3 4.8 - 10.8 K/ L 04/11/2025 1:27 AM [facility] RBC 4.32 3.50 - 5.20 M/ L 04/11/2025 1:27 AM [facility] Hemoglobin 12.7 11.7 - 15.8 GM/DL 04/11/2025 1:27 AM [facility] Hematocrit 37.8 35.0 - 47.0 % 04/11/2025 1:27 AM [facility] MCV 88 81 - 101 fL 04/11/2025 1:27 AM [facility] MCH 29.4 27.0 - 34.0 pg 04/11/2025 1:27 AM [facility] MCHC 33.6 32.0 - 36.0 GM/DL 04/11/2025 1:27 AM [facility] RDW 13.2 11.5 - 14.5 % 04/11/2025 1:27 AM [facility] Platelets 432(H) 150 - 400 K/CU MM 04/11/2025 1:27 AM [facility] MPV 9.1(L) 9.4 - 12.4 fL 04/11/2025 1:27 AM [facility] Nucleated Red Blood Cell 0.0 0 - 0.2 % 04/11/2025 1:27 AM [facility] % Neutros 55 37 - 80 % 04/11/2025 1:27 AM [facility] % Lymphs 34 10 - 50 % 04/11/2025 1:27 AM [facility] % Monos 9 5 - 13 % 04/11/2025 1:27 AM [facility] % Eos 1.5 0.0 - 7.0 % 04/11/2025 1:27 AM [facility] % Baso 1 0 - 3 % 04/11/2025 1:27 AM [facility] NRBC Absolute <0.01 0 - 0.012 K/ul 04/11/2025 1:27 AM EST [facility] # Neutros 4.04 2.00 - 6.90 K/ L 04/11/2025 1:27 AM EST [facility] # Lymphs 2.51 0.60 - 3.40 K/ L 04/11/2025 1:27 AM EST [facility] # Monos 0.62 0.00 - 0.90 K/ L 04/11/2025 1:27 AM EST [facility] # Eos 0.11 0.00 - 0.70 K/ L 04/11/2025 1:27 AM EST [facility] # Baso 0.04 0.00 - 0.20 K/ L 04/11/2025 1:27 AM EST [facility] % Imm Grans 0.10 % 04/11/2025 1:27 AM EST [facility] # IG 0.01(H) 0.00 - 0.00 K/uL 04/11/2025 1:27 AM EST [facility] Blood Venipuncture / Unknown 04/11/2025 1:20 AM EST 04/11/2025 1:23 AM EST Narrative [facility] - 04/11/2025 1:27 AM EST [...] MD LAB BLOOD ORDERABLES Final Resu lt [facility] [address] [place], [place] [address] [phone] documented in this encounter Visit Diagnoses Diagnosis [...] access) documented in this encounter Care Teams Dictating Machine Typist Relationship Specialty Start Date End Date Sarika Moyer, VOCATIONAL SCHOOL TEACHER [address] [place] [address] PCP - General Nurse Practitioner 04/05/25 documented as of this encounter
--- OUTSIDE RECORDS SUMMARY | 2025-04-18 19:23 | XMS_ITS | Encounter Summary ---
Author Organization [employer] ([place], [place], [place], [place], [place]) Address [address] [place] [address] Care Team Providers Care Factory Maintenance Technician Name Role Phone Sarika Moyer TIMBER KILLER Primary Care Provider + Reason for Visit * Reason Comments Vaginal Bleeding Pt was diagnosed wit h an ectopic on March 25. States she is passing clots today. HCG was 11 yesterday. Encounter Details Date Type Department Care Team (Late st Contact Info) Description 04/18/2025 7:23 PM EST - 04/18/2025 9:25 PM EST Emergency [facility] Emergency Department [address] [place] [phone] Toy Egan MD [address] [place] [address] Vaginal bleeding (Primary Dx) Discharge Disposition: Home [...] through Care Everywhere. * Abnormal Uterine Bleeding [id number] (Equatorial Guinean) documented in this encounter ED Notes * [...] Relationship: PCP - General [address] [facility] [address] Next Steps: Schedule an appointment as soon as possible for a visit in 2 day(s) Electronically Signed By Toy Egan MD 04/18/252118 DELIVERY DRIVER documented in this encounter Plan of Treatment Not on file documented as of this encounter Procedures Procedure Name Priority Date/Time Associated Diagnosis Comments HCG, QUANTITATIVE, STAT 04/18/2025 8:19 PM EST documented in this encounter Results * hCG, quantitative, (04/18/2025 8:19 PM EST) Pathologist [facility] Emergency Department HCG Serum Quant 6 mIU/mL 9:06 PM EST [facility] Comment: Results of the [...] MD LAB BLOOD ORDERABLES Final Resu lt [facility] [address] [place] [address], [facility] [phone] documented in this encounter Visit Diagnoses Diagnosis Vaginal bleeding- Primary Other specified noninflammatory disorder of vagina documented in this encounter Care Teams Factory Maintenance Technician Relationship Specialty Start Date End Date Sarika Moyer, TIMBER KILLER [address] [place] [address] PCP - General Nurse Practitioner 04/05/25 documented as of this encounter
--- OUTSIDE RECORDS SUMMARY | 2025-04-27 04:01 | XMS_ITS | Continuity of Care Document ---
Author Organization [facility] Phone Care Team Providers Care Managing Manager Name Role Phone AGUSTIN LAKE Unavailable AGUSTIN LAKE Admitting DECLINED, PCP Primary Care Unavailable AGUSTIN LAKE Primary Attending ALLERGIES AND ADVERSE REACTIONS ALLERGIES AND ADVERSE REACTIONS Code System Allergy Substance Adverse Reaction Date Reaction (Severity) Comment Status Reported By Updated By [id number] Lexapro Adverse reaction to substance Not Specified active [id number] on 2025 11:22:33 PM UTC robitussin (Free Text Allergy) Adverse reaction to substance Not Specified active [id number] on 2025 11:22:33 PM UT RESULTS Patient: GALILEA CABRERA Date of : 2000 7 LABORATORY RESULTS ORDER 100: HCG BETA QUANT (L OINC: [id number]) ORDER DATE: 2025 6:09:00 PM UTC Specimen Source: Serum/Plasm a Specimen Type: Acellular blo od (serum or plasma) specimen PERFORMING LAB: [address] [id number] Result Comment: Final Result Date: 2025 7:08:00 PM UTC (TECH: CB) LOINC TEST [place] [id number] Choriogonadotropin.b e ta subunit [Mass/volume] in Serum or Plasma N 1 mIU/mL 0 mIU/mL - 5 mIU/mL 2025 7:08:00 PM UTC (TECH: CB) LABORATORY NARRATIVE RESULTS Information is [...] Effective Dates Offered Cessation Comment Updated By [id number] Historical Tobacco smoking status Current Every Day Smoker [id number] on 2025 11:23:33 PM [facility] [id number] Historical Tobacco smoking status Unknown If Ever Smoked [id number] on June 10, 2024 7:44:25 PM [facility] [id number] Historical Tobacco smoking status Never Smoked [id number] on June 07, 2024 7:22:26 PM [facility] SOCIAL HISTORY - Gender Sex: Female SOCIAL HISTORY - Status : status i nformation is not available Intention in Next Year: intention information is not available SOCIAL HISTORY - Assessments Code System Description Status Date Value of Assessment Updated By Comment Assessment Information is no t available SOCIAL HISTORY - [place] Affiliation [place] information is not av ailable SOCIAL HISTORY [...] available. ENCOUNTERS ENCOUNTER INFORMATION Reason for Visit O00.90 Admission 2025 6:09:[address] [phone] Discharge April 24, 2025 6:09:00 PM [facility] DISCHARGED TO HOME OR SELF CARE ENCOUNTER DIAGNOSES Notes information is not clemente ilable. Code System Diagnosis Onset Date Diagnosis information is not available. ABSTRACT DIAGNOSES Code System Diagnosis Updated By Abatement Date O00.90 ICD10 UNSPECIFIED ECTO PIC WITHOUT INTRAUTERINE [id number] on April 27, 2025 9:00:57 AM [facility] O00.90 ICD10 UNSPECIFIED ECTO PIC WITHOUT INTRAUTERINE [id number] on April 27, 2025 9:00:58 AM [facility] CARE TEAM Care Managing Manager Role AGUSTIN LAKE Referring AGUSTIN LAKE Admitting PCP DECLINED Primary Care AGUSTIN LAKE Primary Attending CARE TEAM CARE geospatial developer Role on Team Location Telecom Status Start Date End Nickolas e Updated By DECLINED PCP PCP normal [facility] 2024 5:00:00 AM [facility] April 24, 2025 6:09:00 PM UT [id number] on April 26, 2025 12:27:03 PM [facility] ALEKSANDRA Bills PA-C Referring normal 2025 5:00:00 AM [facility] April 24, 2025 6:09:00 PM [place] [id number] on April 26, 2025 12:27:03 PM [facility] ALEKSANDRA Bills PA-C Attending normal 2025 5:00:00 AM [facility] April 24, 2025 6:09:00 PM [place] [id number] on April 26, 2025 12:27:03 PM [facility] ALEKSANDRA Bills PA-C Admitting normal 2025 5:00:00 AM [facility] April 24, 2025 6:09:00 PM [place] [id number] on April 26, 2025 12:27:03 PM [facility] CLEMENTINA ÉMNDEZ PCP normal 2025 6:09:25 PM [facility] 2025 5:00:00 AM [place] [id number] on April 26, 2025 12:27:03 PM [facility]
--- OUTSIDE RECORDS SUMMARY | 2025-04-28 22:58 | XMS_ITS | Encounter Summary ---
Author Organization Healthcare Address [address] [id number] Care Team Providers Care Caddy Master Name Role Phone Sarika Moyer ASSOCIATE SALES REPRESENTATIVE Primary Care Provider + Encounter Details Date [...] on filedocumented in this encounter Care Teams Caddy Master Relationship Specialty Start Date End Date Sarika Moyer, ASSOCIATE SALES REPRESENTATIVE [address] [address] PCP - General 10/14/20 documented as of this encounter
--- OUTSIDE RECORDS SUMMARY | 2025-04-28 22:58 | XMS_ITS | Encounter Summary ---
Author Organization Healthcare Address [address] [place] [address] Care Team Providers Care Inlayer Name Role Phone Sarika Moyer WELDER MANUFACTURE Primary Care Provider + Encounter Details Date Type Department Care Team ([facility] st Contact Info) Description 03/17/2025 Telephone Obstetrics & Gynecology [address] [place] [phone] Chiki Cardenas MD [address] [place] [address] Social History Tobacco Use Types [...] on filedocumented in this encounter Care Teams Inlayer Relationship Specialty Start Date End Date Sarika Moyer APRN [address] [place] [address] PCP - General 10/14/20 documented as of this encounter
--- OUTSIDE RECORDS SUMMARY | 2025-04-28 22:59 | XMS_ITS | Clinical Summary ---
Author Organization [place] ([place], [place], [place], [place], [place]) Address [address] [place] [address] Care Team Providers Care Lead Case Manager Name Role Phone Sarika Moyer ASTRONAUTICAL ENGINEER Primary Care Provider + Allergies Active Allergy Reactions Criticality Noted Date Comments Escitalopram 04/05/2025 Acetaminophen-Dm 04/05/2025 Medications No known medications Encounters Date Type Department Care Team Description 04/18/2025 7:23 PM EST - 04/18/2025 9:25 PM EST Emergency [facility] Emergency Department [address] [place], [place] [phone] Toy Egan MD Vaginal bleeding (Primary Dx) Discharge Disposition: Home or Self Care 04/18/2025 Travel 04/10/2025 11:39 PM EST - 04/11/2025 5:09 AM EST Emergency [facility] Emergency Department [address] [place] [phone] Farzad Stiles MD Ectopic (Primary Dx); Hypokalemia Discharge Disposition: Home or Self Care 04/10/2025 Travel 04/05/2025 10:43 PM EST - 04/06/2025 2:31 AM EST Emergency [facility] Emergency Department [address] [place] [phone] Keke Gar MD Ectopic (Primary Dx) Discharge [...] Serum Quant 6 mIU/mL 9:06 PM EST [facility] Comment: Results of the [...] LAB BLOOD ORDERABLES Final Resu lt [facility] [address] [id number] [phone] * US OB transvaginal (04/11/2025 2:29 AM [...] and Farzad Stiles MD [facility] ORDERABLES Edited Result - Final * (ABNORMAL) CBC with Auto Diff (04/11/2025 1:20 AM EST) Only the most recent of2 resultswithin the time period is included. WBC 7.3 4.8 - 10.8 K/ L 04/11/2025 1:27 AM EST [facility] RBC 4.32 3.50 - 5.20 M/ L 04/11/2025 1:27 AM EST [facility] Hemoglobin 12.7 11.7 - 15.8 GM/DL 04/11/2025 1:27 AM EST [facility] Hematocrit 37.8 35.0 - 47.0 % 04/11/2025 1:27 AM EST [facility] MCV 88 81 - 101 fL 04/11/2025 1:27 AM [facility] MCH 29.4 27.0 - 34.0 pg 04/11/2025 1:27 AM [facility] MCHC 33.6 32.0 - 36.0 GM/DL 04/11/2025 1:27 AM [facility] RDW 13.2 11.5 - 14.5 % 04/11/2025 1:27 AM [facility] Platelets 432(H) 150 - 400 K/CU MM 04/11/2025 1:27 AM [facility] MPV 9.1(L) 9.4 - 12.4 fL 04/11/2025 1:27 AM [facility] Nucleated Red Blood Cell 0.0 0 - 0.2 % 04/11/2025 1:27 AM [facility] % Neutros 55 37 - 80 % 04/11/2025 1:27 AM [facility] % Lymphs 34 10 - 50 % 04/11/2025 1:27 AM [facility] % Monos 9 5 - 13 % 04/11/2025 1:27 AM [facility] % Eos 1.5 0.0 - 7.0 % 04/11/2025 1:27 AM [facility] % Baso 1 0 - 3 % 04/11/2025 1:27 AM [facility] NRBC Absolute <0.01 0 - 0.012 K/ul 04/11/2025 1:27 AM [facility] # Neutros 4.04 2.00 - 6.90 K/ L 04/11/2025 1:27 AM [facility] # Lymphs 2.51 0.60 - 3.40 K/ L 04/11/2025 1:27 AM [facility] # Monos 0.62 0.00 - 0.90 K/ L 04/11/2025 1:27 AM [facility] # Eos 0.11 0.00 - 0.70 K/ L 04/11/2025 1:27 AM EST [facility] # Baso 0.04 0.00 - 0.20 K/ L 04/11/2025 1:27 AM EST [facility] % Imm Grans 0.10 % 04/11/2025 1:27 AM EST [facility] # IG 0.01(H) 0.00 - 0.00 K/uL 04/11/2025 1:27 AM EST [facility] Blood Venipuncture / Unknown 04/11/2025 1:20 AM EST 04/11/2025 1:23 AM EST Narrative [facility] - 04/11/2025 1:27 AM [...] LAB BLOOD ORDERABLES Final Resu lt [facility] [address] [place] [address] * (ABNORMAL) Comprehensive metabolic panel (04/11/2025 1:20 AM EST) Only the most recent of2 resultswithin the time period is included. Sodium 142 136 - 145 meq/L 04/11/2025 1:58 AM EST [facility] Potassium 3.1(L) 3.5 - 5.1 meq/L 04/11/2025 1:58 AM EST [facility] Chloride 105 98 - 107 meq/L 04/11/2025 1:58 AM EST [facility] CO2 28 21 - 32 meq/L 04/11/2025 1:58 AM [facility] Calcium 9.0 8.5 - 10.1 mg/dL 04/11/2025 1:58 AM [facility] Glucose 105(H) 74 - 100 mg/dL 04/11/2025 1:58 AM [facility] BUN 11 7 - 18 mg/dL 04/11/2025 1:58 AM [facility] Creatinine 0.61 0.55 - 1.10 mg/dL 04/11/2025 1:58 AM [facility] BUN/Creatinine 18 04/11/2025 1:58 AM [facility] Albumin 3.9 3.4 - 5.0 g/dL 04/11/2025 1:58 AM [facility] Alkaline Phosphatase 78 46 - 116 U/L 04/11/2025 1:58 AM [facility] ALT 12 12 - 78 U/L 04/11/2025 1:58 AM [facility] AST 11(L) 15 - 37 U/L 04/11/2025 1:58 AM [facility] Total Bilirubin 0.4 0.2 - 1.0 mg/dL 04/11/2025 1:58 AM [facility] Protein, Total 7.1 6.4 - 8.2 gm/dL 04/11/2025 1:58 AM [facility] Anion Gap 12 11 - 22 04/11/2025 1:58 AM [facility] A/G Ratio 1.2 04/11/2025 1:58 AM [facility] Globulin 3.2 g/dL 04/11/2025 1:58 AM [facility] Osmolality Calc 282.9 mOsm/kg 1:58 AM [facility] eGFR (mL/min/1.73m2) >60 >=60 mL/min/1.7 3m2 04/11/2025 1:58 AM [facility] Comment:ESTIMATED GFR IS NOT ACCURATE CREATININE CLEARANCE IN PREDICTING GLOMERULAR FILTRATION RATE. ESTIMATED GFR IS NOT APPLICABLE FOR DIALYSIS PATIENTS. Blood Venipuncture / Unknown 04/11/2025 1:20 AM EST 04/11/2025 1:23 AM EST Farzad Stiles MD LAB BLOOD ORDERABLES Final Resu lt [facility] [address] [id number], [facility] [phone] * (ABNORMAL) Urinalysis w/Microscopic (04/05/2025 11:04 PM EST) Color, UA Yellow 04/05/2025 11:43 PM EST [facility] Clarity, UA Clear 04/05/2025 11:43 PM [facility] Specific [place], UA 1.025 1.002 - 1.030 04/05/2025 11:43 PM [facility] pH, UA 6.0 5.0 - 9.0 04/05/2025 11:43 PM [facility] Leukocytes, UA Negative Negative 04/05/2025 11:43 PM [facility] Nitrite, UA Negative Negative 04/05/2025 11:43 PM [facility] Protein, UA 1+(A) Negative 04/05/2025 11:43 PM [facility] Glucose, UA Negative Negative 04/05/2025 11:43 PM [facility] Ketones, UA Trace(A) Negative 04/05/2025 11:43 PM [facility] Urobilinogen, UA 0.2 mg/dL Normal 04/05/2025 11:43 PM [facility] Bilirubin, UA Negative Negative 04/05/2025 11:43 PM [facility] Blood, UA 3+(A) Negative 04/05/2025 11:43 PM [facility] RBC, UA 5-10(A) None Seen, Rare /HPF 04/05/2025 11:43 PM [facility] WBC, UA 0-5 None Seen, Occasional , 0-5 /HPF 04/05/2025 11:43 PM [facility] Bacteria, UA 2+(A) None Seen 04/05/2025 11:43 PM [facility] Mucus 1+(A) Trace 04/05/2025 11:43 PM EST [facility] SQUAMOUS EPITHELIAL 0-5(A) None Seen, Rare /HPF 04/05/2025 11:43 PM EST [facility] Ca Oxalate [place], UA 2+(A) (none) 04/05/2025 11:43 PM EST [facility] Specimen Source Urine, Clean Catch 04/05/2025 11:43 PM EST [facility] Urine URINE SPECIMEN COLLECTION, CLEAN CATCH / Unknown 04/05/2025 11:04 PM EST 04/05/2025 11:04 PM EST us Keke Gar MD URINE ORDERABLES Final Re sult [facility] [address] [place] [address], [facility] [phone] from Last 3 Months Insurance [facility] Care Teams Lead Case Manager Relationship Specialty Start Date End Date Sarika Moyer, ASTRONAUTICAL ENGINEER [address] [place], [place] [phone] PCP - General Nurse Practitioner 04/05/25
--- OUTSIDE RECORDS SUMMARY | 2025-04-28 22:59 | XMS_ITS | Referral Summary ---
Author Organization [employer] ([place], [place], [place], [place], [place]) Address [address] [place] [address] Care Team Providers Care Veterinary Milk Specialist Name Role Phone Sarika Moyer TRANSPORTATION DRIVER Primary Care Provider + Encounters Date Type Department Care Team Description 04/18/2025 Travel 04/18/2025 7:23 PM EST - 04/18/2025 9:25 PM EST Emergency [facility] Emergency Department [address] [place] [phone] Toy Egan MD Vaginal bleeding (Primary Dx) Discharge Disposition: Home or Self Care 04/10/2025 11:39 PM EST - 04/11/2025 5:09 AM EST Emergency [facility] Emergency Department [address] [place] [phone] Farzad Stiles MD Ectopic (Primary Dx); Hypokalemia Discharge Disposition: Home or Self Care 04/10/2025 Travel 04/05/2025 10:43 PM EST - 04/06/2025 2:31 AM EST Emergency [facility] Emergency Department [address] [place] [phone] Keke Gar MD Ectopic (Primary Dx) Discharge [...] ORDERABLES Final Resu lt [facility] [address] [place] [address] * US OB transvaginal (04/11/2025 2:29 AM [...] IMPRESSION: Authenticated and us Farzad Stiles MD [facility] ORDERABLES Edited Result - Final * (ABNORMAL) CBC with Auto Diff (04/11/2025 1:20 AM EST) Only the most recent of2 resultswithin the time period is included. WBC 7.3 4.8 - 10.8 K/ L 04/11/2025 1:27 AM [facility] RBC 4.32 3.50 - 5.20 M/ L 04/11/2025 1:27 AM [facility] Hemoglobin 12.7 11.7 - 15.8 GM/DL 04/11/2025 1:27 AM [facility] Hematocrit 37.8 35.0 - 47.0 % 04/11/2025 1:27 AM [facility] MCV 88 81 - 101 fL 04/11/2025 1:27 AM [facility] MCH 29.4 27.0 - 34.0 pg 04/11/2025 1:27 AM [facility] MCHC 33.6 32.0 - 36.0 GM/DL 04/11/2025 1:27 AM [facility] RDW 13.2 11.5 - 14.5 % 04/11/2025 1:27 AM [facility] Platelets 432(H) 150 - 400 K/CU MM 04/11/2025 1:27 AM [facility] MPV 9.1(L) 9.4 - 12.4 fL 04/11/2025 1:27 AM [facility] Nucleated Red Blood Cell 0.0 0 - 0.2 % 04/11/2025 1:27 AM [facility] % Neutros 55 37 - 80 % 04/11/2025 1:27 AM [facility] % Lymphs 34 10 - 50 % 04/11/2025 1:27 AM [facility] % Monos 9 5 - 13 % 04/11/2025 1:27 AM [facility] % Eos 1.5 0.0 - 7.0 % 04/11/2025 1:27 AM [facility] % Baso 1 0 - 3 % 04/11/2025 1:27 AM [facility] NRBC Absolute <0.01 0 - 0.012 K/ul 04/11/2025 1:27 AM [facility] # Neutros 4.04 2.00 - 6.90 K/ L 04/11/2025 1:27 AM [facility] # Lymphs 2.51 0.60 - 3.40 K/ L 04/11/2025 1:27 AM [facility] # Monos 0.62 0.00 - 0.90 K/ L 04/11/2025 1:27 AM [facility] # Eos 0.11 0.00 - 0.70 K/ L 04/11/2025 1:27 AM [facility] # Baso 0.04 0.00 - 0.20 K/ L 04/11/2025 1:27 AM [facility] % Imm Grans 0.10 % 04/11/2025 1:27 AM [facility] # IG 0.01(H) 0.00 - 0.00 K/uL 04/11/2025 1:27 AM [facility] Blood Venipuncture / Unknown 04/11/2025 1:20 AM EST 04/11/2025 1:23 AM [facility] - 04/11/2025 1:27 AM EST [...] Final Resu lt [facility] [address] [place] [address], [facility] [phone] * (ABNORMAL) Comprehensive metabolic panel (04/11/2025 1:20 AM EST) Only the most recent of2 resultswithin the time period is included. Sodium 142 136 - 145 meq/L 04/11/2025 1:58 AM EST [facility] Potassium 3.1(L) 3.5 - 5.1 meq/L 04/11/2025 1:58 AM [facility] Chloride 105 98 - 107 meq/L 04/11/2025 1:58 AM EST [facility] CO2 28 21 - 32 meq/L 04/11/2025 1:58 AM EST [facility] Calcium 9.0 8.5 - 10.1 mg/dL 04/11/2025 1:58 AM EST [facility] Glucose 105(H) 74 - 100 mg/dL 04/11/2025 1:58 AM EST [facility] BUN 11 7 - 18 mg/dL 04/11/2025 1:58 AM EST [facility] Creatinine 0.61 0.55 - 1.10 mg/dL 04/11/2025 1:58 AM [facility] BUN/Creatinine 18 04/11/2025 1:58 AM EST [facility] Albumin 3.9 3.4 - 5.0 g/dL 04/11/2025 1:58 AM EST [facility] Alkaline Phosphatase 78 46 - 116 U/L 04/11/2025 1:58 AM EST [facility] ALT 12 12 - 78 U/L 04/11/2025 1:58 AM [facility] AST 11(L) 15 - 37 U/L 04/11/2025 1:58 AM EST [facility] Total Bilirubin 0.4 0.2 - 1.0 mg/dL 04/11/2025 1:58 AM [facility] Protein, Total 7.1 6.4 - 8.2 gm/dL 04/11/2025 1:58 AM [facility] Anion Gap 12 11 - 22 04/11/2025 1:58 AM [facility] A/G Ratio 1.2 04/11/2025 1:58 AM [facility] Globulin 3.2 g/dL 04/11/2025 1:58 AM [facility] Osmolality Calc 282.9 mOsm/kg 1:58 AM [facility] eGFR (mL/min/1.73m2) >60 >=60 mL/min/1.7 3m2 04/11/2025 1:58 AM [facility] Comment:ESTIMATED GFR IS NOT ACCURATE CREATININE CLEARANCE IN PREDICTING GLOMERULAR FILTRATION RATE. ESTIMATED GFR IS NOT APPLICABLE FOR DIALYSIS PATIENTS. Blood Venipuncture / Unknown 04/11/2025 1:20 AM EST 04/11/2025 1:23 AM EST us Farzad Stiles MD LAB BLOOD ORDERABLES Final Resu lt [facility] [address] [place] [address], [facility] [phone] * (ABNORMAL) Urinalysis w/Microscopic (04/05/2025 11:04 PM EST) Color, UA Yellow 04/05/2025 11:43 PM [facility] Clarity, UA Clear 04/05/2025 11:43 PM [facility] Specific [place], UA 1.025 1.002 - 1.030 04/05/2025 11:43 PM [facility] pH, UA 6.0 5.0 - 9.0 04/05/2025 11:43 PM [facility] Leukocytes, UA Negative Negative 04/05/2025 11:43 PM EST [facility] Nitrite, UA Negative Negative 04/05/2025 11:43 PM [facility] Protein, UA 1+(A) Negative 04/05/2025 11:43 PM [facility] Glucose, UA Negative Negative 04/05/2025 11:43 PM EST [facility] Ketones, UA Trace(A) Negative 04/05/2025 11:43 PM [facility] Urobilinogen, UA 0.2 mg/dL Normal 04/05/2025 11:43 PM EST [facility] Bilirubin, UA Negative Negative 04/05/2025 11:43 PM [facility] Blood, UA 3+(A) Negative 04/05/2025 11:43 PM [facility] RBC, UA 5-10(A) None Seen, Rare /HPF 04/05/2025 11:43 PM [facility] WBC, UA 0-5 None Seen, Occasional , 0-5 /HPF 04/05/2025 11:43 PM EST [facility] Bacteria, UA 2+(A) None Seen 04/05/2025 11:43 PM [facility] Mucus 1+(A) Trace 04/05/2025 11:43 PM [facility] SQUAMOUS EPITHELIAL 0-5(A) None Seen, Rare /HPF 04/05/2025 11:43 PM [facility] Ca Oxalate [place], UA 2+(A) (none) 04/05/2025 11:43 PM EST [facility] Specimen Source Urine, Clean Catch 04/05/2025 11:43 PM [facility] Urine URINE SPECIMEN COLLECTION, CLEAN CATCH / Unknown 04/05/2025 11:04 PM EST 04/05/2025 11:04 PM EST us Keke Gar MD URINE ORDERABLES Final Re sult [facility] [address] [place] [address], [facility] [phone] from Last 3 Months Insurance [facility] Care Teams Veterinary Milk Specialist Relationship Specialty Start Date End Date Sarika Moyer, TRANSPORTATION DRIVER [address] [place] [address] PCP - General Nurse Practitioner 04/05/25
--- OUTSIDE RECORDS SUMMARY | 2025-04-28 22:59 | XMS_ITS | Encounter Summary ---
Author Organization [employer] ([place], [place], [place], [place], [place]) Address [address] [place] [address] Care Team Providers Care Churn Driller Helper Name Role Phone Sarika Moyer BOX SHOOK PATCHER Primary Care Provider + Encounter Details Date [...] on filedocumented in this encounter Care Teams Churn Driller Helper Relationship Specialty Start Date End Date Sarika Moyer APRN [address] [place] [address] PCP - General Nurse Practitioner 04/05/25 documented as of this encounter
--- OUTSIDE RECORDS SUMMARY | 2025-04-28 22:59 | XMS_ITS | Encounter Summary ---
Author Organization [employer] ([place], [place], [place], [place], [place]) Address [address] [place] [address] Care Team Providers Care Software Analyst Name Role Phone Sarika Moyer MERCHANT PATROLLER Primary Care Provider + Encounter Details Date [...] on filedocumented in this encounter Care Teams Software Analyst Relationship Specialty Start Date End Date Sarika Moyer APRN [address] [place] [address] PCP - General Nurse Practitioner 04/05/25 documented as of this encounter
--- OUTSIDE RECORDS SUMMARY | 2025-04-28 22:59 | XMS_ITS | Clinical Summary ---
Author Organization Healthcare Address [address] [id number] Care Team Providers Care Dairy Equipment Specialist Name Role Phone Sarika Moyer CUSTOMER COUNTER REPRESENTATIVE Primary Care Provider + Allergies Active Allergy Reactions Criticality Noted Date Comments Escitalopram Anaphylaxis High 03/27/2025 Robitussin Dm Max Day-Night Anxiety Low 03/27/20 Medications No known medications Active Problems Comments Yes No known active problems Encounters Date Type Department Care Team Description 03/27/2025 8:35 PM EDT - 03/28/2025 1:22 AM EDT Emergency [facility] Emergency Department [address] [place] [phone] Rose Cortes MD of unknown anatomic location (Primary Dx) Discharge Disposition: Home or Self Care 03/27/2025 Travel 03/17/2025 Telephone Obstetrics & Gynecology [address] [place] [phone] Chiki Cardenas MD from Last 3 [...] 10/19/2024 10/19/2014, 05/21/2006, 08/26/2003, Additional history exists [id number] Vaccine ( - season) 2025 UKY-Influenza Vaccine [...] lt [facility] [address] [place] [address] * Hepatitis C Antibody - ED (03/27/2025 8:31 PM EDT) Hepatitis C Antibody Negative Negative 03/27/2025 9:26 PM EDT [facility] Blood Venous blood specimen / Unknown Venipuncture / Unknown 03/27/2025 8:31 PM EDT 03/27/2025 8:44 PM EDT us Rose Cortes MD LAB BLOOD ORDERABLES Final Resu lt [facility] [address] [place] [address] * (ABNORMAL) CBC w/diff (03/27/2025 8:31 PM EDT) Pathologist [facility] WBC Count 11.76(H) 3.70 - 10.30 10*3/uL [...] ORDERABLES Final Resu lt Performing Organization Address City/[facility]/ZIP Co de Phone Number [facility] [address] [place] [address] * Type and screen (03/27/2025 8:31 PM [...] TEST ORDERABLES Final Result Performing Organization Address [facility] de Phone Number BLOOD BANK [address] [place] [address] * (ABNORMAL) hCG, quantitative, (03/27/2025 8:31 PM EDT) hCG, Total Beta 626.2(H) <5 mIU/mL 03/27/2025 9:22 PM EDT [facility] Blood Venous blood specimen / Unknown [...] lt [facility] [address] [place] [address] * (ABNORMAL) CMP (03/27/2025 8:31 PM EDT) [...] [facility] [address] [place] [address] from Last 3 Months Insurance [facility] MEDICAID Care Teams Dairy Equipment Specialist Relationship Specialty Start Date End Date Sarika Moyer APRN [address] [place] [address] PCP - General 10/14/20
--- OUTSIDE RECORDS SUMMARY | 2025-04-28 22:59 | XMS_ITS | Encounter Summary ---
Author Organization [employer] ([place], [place], [place], [place], [place]) Address [address] [place] [address] Care Team Providers Care Battery Container Inspector Name Role Phone Sarika Moyer GREEN CHAINER Primary Care Provider + Encounter Details Date [...] on filedocumented in this encounter Care Teams Battery Container Inspector Relationship Specialty Start Date End Date Sarika Moyer APRN [address] [place] [address] PCP - General Nurse Practitioner 04/05/25 documented as of this encounter
--- NOTE | 2025-04-28 23:00 | HMH.EDGENADL ---
Discharge Plan Disposition Patient Disposition: Home, Self-Care Prescriptions Prescriptions: No Action fluoxetine 20 mg capsule 20 mg PO DAILY 30 Days Qty: 30 2RF Rx Instructions: take in AM cephalexin 500 mg capsule 500 mg PO Q6H 5 Days Qty: 20 0RF Referrals Follow up/Referrals: Sarika Moyer APRN [Primary Care Provider, Medical] - See instructions Activity Restrictions/Add. Instructions Additional Instructions/Restrictions: Please follow-up with your primary care provider. Please return to the emergency department if you develop any new or worsening symptoms or become concerned for your health. Clinical Impressions Clinical Impression: Abdominal pain, LUQ Stand Alone Forms Stand Alone Forms: Work/School Release Instructions Patient Instructions: DI for Acute Abdominal Pain Print Language Print Language: Moldovan Discharge ED Provider: Jass Govea Adult HPI General Chief complaint: Abdominal Pain Stated complaint: abdominal pain Time Seen by Provider: 04/28/25 23:00 History of Present Illness HPI narrative: 25-year-old female with history of recent ectopic , anxiety and panic disorder, recent UTI presents for a few hours of left upper quadrant abdominal pain. She is concerned that her ectopic could have ruptured. 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 She denies any lower abdominal pain, nausea, vomiting, fever. She still has her gallbladder and her appendix but she has no right-sided abdominal pain. She took 500 of Tylenol prior to arrival. She does not want any other pain medications besides Tylenol. She would prefer not to do a CT scan because she does not want contrast. She reports that she had a bowel movement earlier today and is fairly regular. She denies any urinary symptoms, no back pain. Related Data Previous Rx's ?Medication ?Instructions ?Recorded cephalexin 500 mg capsule 500 mg PO Q6H 5 days #20 caps 04/17/25 fluoxetine 20 mg capsule 20 mg PO DAILY 30 days #30 caps 04/20/25 Allergies Allergy/AdvReac Type Severity Reaction Status Date / Time escitalopram (From Lexapro) Allergy Severe Anaphylaxis Verified 04/16/25 08:55 dextromethorphan Allergy Hyper Verified 04/16/25 08:55 activity guaifenesin (From Robitussin) Allergy hyper Verified 04/16/25 08:55 [facility] Disclaimer: The information contained in this section may have been updated after the patient was seen, as this information can be updated by other users. Medical History No significant medical problems Surgical History History of tonsillectomy and adenoidectomy H/O oral surgery Family History Other No significant family history Social History Smoking Status: Current every day smoker tobacco type: e-cigarettes alcohol intake: never current occupational status: employed Travel in the last 8 weeks?: None household members: spouse Have you lived/traveled outside US in past 30 days?: No Contact w/someone who lives/traveled outside US past 30 days?: No Exposure to someone with infectious disease in past 14 days?: No Do you have a fever (greater than 100.4 F or 38 C)?: No Have you tested positive for COVID-19?: No Exposed to someone with COVID-19 in past 14 days?: No Do you have a sore throat?: No Do you have a cough?: No Do you have any weakness?: No Do you have any diarrhea?: No Are you experiencing any unusual bleeding?: No Do you have any muscle aches/pain?: No Do you have any abdominal pain?: No Are you experiencing loss of taste or smell?: No Other Medical History Have you received the Pneumonia Vaccine: No ROS Obtained: Yes All systems reviewed & no additional complaints except as documented Physical Exam General General appearance: alert and in no apparent distress Head Head exam: atraumatic and normocephalic Eye Eye exam: Present normal appearance, PERRL and EOMI ENT ENT exam: Present normal oropharynx and normal external ear exam Neck Neck exam: Present normal inspection and full ROM Chest Chest inspection: Present normal inspection and symmetric chest wall rise; Absent tenderness Respiratory Respiratory exam: Present normal lung sounds bilaterally; Absent respiratory distress Cardiovascular Cardiovascular exam: Present regular rate and normal rhythm Abdominal Exam Abdominal exam: Present soft and tenderness (Mild left upper quadrant tenderness to palpation. No right upper quadrant tenderness, no bilateral lower abdominal tenderness); Absent distention or guarding Extremities Exam Extremities exam: Present normal inspection; Absent edema or joint swelling Back Exam Back exam: Present normal inspection; Absent tenderness Neurological Exam Neurological exam: Present alert and oriented X3; Absent motor sensory deficit Psychiatric Psychiatric exam: Present normal affect and normal mood Skin Skin exam: Present warm, dry and normal color Lymphatic Lymphatic Findings: no adenopathy Medical Decision Making Medical Records Medical records reviewed: Yes I reviewed the patient's medical records. Screening: Per USPSTF and CDC recommendations, given the prevalence of disease in our region, it is our hospital?s policy to screen for HIV and viral Hepatitis for all patients aged 18 and over and those with ongoing risk factors. Lucho Inquiry Pt receiving controlled substance: No Lucho was queried for this patient: No Vital Signs: 04/28/25 23:01 04/29/25 00:30 Temperature 98.1 F 98.8 F Temperature Source Oral Oral Pulse Rate 74 Pulse Rate [Right] 97 H Respiratory Rate 24 18 Blood Pressure 118/78 Blood Pressure [Right Arm] 128/100 H Blood Pressure Mean [Right Arm] 109 Blood Pressure Source [Right Arm] Automatic Cuff Blood Pressure Position [Right Arm] Sitting 02 Sat by Pulse Oximetry 99 Oxygen Delivery Method Room Air Room Air Lab Data Lab results reviewed: Yes I reviewed the patient's lab results. Lab Results 04/28/25 22:57: WBC 12.1 H, RBC 4.48, Hgb 13.1, Hct 40.2, MCV 89.7, MCH 29.2, MCHC 32.6, RDW 12.9, Plt Count 500 H, MPV 9.2, Neut % (Auto) 61.3, Lymph % (Auto) 29.6, [place] % (Auto) 7.3, Eos % (Auto) 1.1, Baso % (Auto) 0.5, Neut # (Auto) 7.5, Lymph # (Auto) 3.6, [place] # (Auto) 0.9, Eos # (Auto) 0.1, Baso # (Auto) 0.1, Sodium 136, Potassium 3.9, Chloride 103, Carbon Dioxide 24, Anion Gap 12.9, BUN 12, Creatinine 0.50 L, Estimated Creat Clear 108, Estimated GFR 153, Est GFR ( Amer) 185, Glucose 92, Calcium 9.5, Total Bilirubin 0.6, AST 30, ALT 12, Alkaline Phosphatase 55, Total Protein 8.0, Albumin 5.1 H, Globulin 2.9, Albumin/Globulin Ratio 1.8, Lipase 73, Urine Color Yellow, Urine Appearance Clear, Urine pH 7.0, Ur Specific [place] 1.025, Urine Protein 1+ A, Urine Glucose (UA) Negative, Urine Ketones Trace, Urine Blood Negative, Urine Nitrate Negative, Urine Bilirubin Negative, Urine Urobilinogen 0.2, Ur Leukocyte Esterase Negative, Urine RBC None, Urine WBC None, Ur Squamous Epith Cells 5-10, Amorphous Sediment 4+, Urine Bacteria None 04/28/25 22:57 04/28/25 22:57 Orders (Tests/Meds): ED MEDICATIONS Discontinued Medications Generic Name Dose Route Start Last Admin Trade Name Freq PRN Reason Stop Dose Admin Acetaminophen 500 mg 04/28/25 23:17 04/28/25 23:29 Acetaminophen 500mg Tab PO 04/28/25 23:18 500 mg ONCE ONE Administration Belladonna Alkaloids 60 ml 04/28/25 23:17 04/28/25 23:29 Belladonna Alkaloids 60 Ml Ml PO 04/28/25 23:18 60 ml ONCE ONE Administration ORDERS Category Date Time Status KUB (single view) [XR KUB] Stat Exams 04/28/25 23:18 Completed Complete Blood Count Auto Diff Stat Lab 04/28/25 22:57 Completed Comprehensive Metabolic Panel Stat Lab 04/28/25 22:57 Completed Lipase Stat Lab 04/28/25 22:57 Completed Urinalysis and Microscopic Stat Lab 04/28/25 22:57 Completed Medical Decision Narrative: 25-year-old female with history of anxiety and panic disorder, history of ectopic with beta-hCG that recently trended down to 0, presents for left lower quadrant abdominal pain. History was obtained via interactive discussion with patient. On arrival, patient is [afebrile, hemodynamically stable, satting appropriately, alert, oriented x4, GCS 15], moving all extremities spontaneously. Full physical exam performed and significant for mild left upper quadrant abdominal tenderness Differential includes but is not limited to constipation, gastroenteritis, bowel obstruction, pancreatitis, gastritis. Patient was given 500 mg additional Tylenol, GI cocktail for symptomatic management and correction of underlying abnormalities. Workup initiated including KUB, basic labs, urinalysis. Bedside ultrasound was performed and shows no free fluid within the abdomen. This helped reassure patient that she did not have a ruptured ectopic . On re-evaluation, patient reports symptomatic improvement. Laboratory workup independently interpreted by me and significant for negative lipase, normal liver enzymes, no significant leukocytosis, urinalysis without evidence of infection. Imaging independently interpreted by me and significant for KUB without evidence of obstruction, left colon does appear to have stool throughout. See radiology read for full review of final results. CT imaging was considered, but deemed unnecessary due to no significant concern for emergent pathology such as appendicitis, cholecystitis, ruptured ectopic etc. Given patient history, exam and workup, patient's presentation most likely represents gas pains/mild constipation. I had interactive discussion with patient regarding presentation, labs and imaging. I offered CT imaging given she was having some persistent pain without an obvious explanation. Patient declined CT scan. She was discharged in stable condition. Procedures Risk/Benefits of Procedure(s) Were Explained: Yes Limited Ultrasound Indication:: Limited FAST ultrasound Indication: Abdominal pain Views: Right upper quadrant, pelvis, left upper quadrant Interpretation: Peritoneal Free Fluid: Absent in the right upper quadrant, left upper quadrant and pelvis Impression: No evidence of intraperitoneal fluid Images were saved to permanent archive The study was technically adequate [id number] (limited abdominal) This study was performed by me, Jass Govea and I personally interpreted all images/videos. Critical Care Critical Care Time Critical Care Time: No
[2025-04-28 23:01] VITALS: BP 128/100; PULSE 97; RESP 24; TEMP 36.7; O2SAT 99; BMI 18.6
[2025-04-28 23:09] LABS: Microscopic, Urine URINE MICROSCOPIC (MICROSCOPIC)
[2025-04-28 23:10] LABS: Bilirubin,Urine Negative (Negative); Color,Urine YELLOW (Yellow); Glucose,Urine (UA) Negative (Negative); Ketones,Urine TRACE (Negative); Leukocyte Esterase,Urine Negative (Negative); PH,Urine 7.0 (5.0-8.5); Protein,Urine 1+ (Negative); Specific Gravity, Urine 1.025 (1.005-1.030); Urobilinogen,Urine 0.2 EU/dl (0.2)
[2025-04-28 23:12] LABS: Hematocrit 40.2 % (37.0-47.0); Hemoglobin 13.1 g/dL (12.2-16.2); Immature Granulocytes % 0.2 %; Mean Corpuscular HGB Conc 32.6 g/dL (31.8-35.4); Mean Corpuscular Hemoglobin 29.2 pg (27.0-31.2); Mean Corpuscular Volume 89.7 fl (81-99); Nucleated Red Blood Cells % 0 %; Platelet Count 500 K/mm3 (142-424); Red Blood Count 4.48 M/mm3 (4.20-5.40); Red Cell Distribution Width-SD 42.2 fL; White Blood Count 12.1 K/mm3 (4.8-10.8)
[2025-04-28 23:17] LABS: Alanine Aminotransferase 12 U/L (12-78); Albumin Level 5.1 g/dl (3.5-5.0); Albumin/Globulin Ratio 1.8 (1.1-1.8); Alkaline Phosphatase 55 U/L (38-126); Anion Gap 12.9 mEq/L (5-15); Aspartate Amino Transferase 30 U/L (14-36); Bilirubin,Total 0.6 mg/dl (0.2-1.3); Blood Urea Nitrogen 12 mg/dl (7-17); Calcium 9.5 mg/dl (8.4-10.2); Carbon Dioxide 24 mmol/L (22.0-30.0); Chloride 103 mmol/L (98-107); Creatinine Clearance Estimated 108 mL/min (50-200); Creatinine,Serum 0.50 mg/dl (0.52-1.04); Estimated Glomerular Filt Rate 153 ml/min (>60); GFR (African American) 185 ML/MIN (>60); Globulin 2.9 g/dL (1.3-3.2); Glucose 92 mg/dl (74-100); Potassium 3.9 mmoL/L (3.5-5.1); Sodium 136 mmol/L (136-145); Total Protein,Serum 8.0 g/dl (6.3-8.2)
[2025-04-28 23:18] LABS: Amorphous Sediment,Urine 4+ /lpf
--- NOTE | 2025-04-28 23:18 | XR_ITS ---
PROCEDURE INFORMATION: Exam: XR Abdomen Exam date and time: 04/28/2025 11:21 PM Age: 25 years old Clinical indication: Abdominal pain; Additional info: Upper abd pain TECHNIQUE: Imaging protocol: Radiologic exam of the abdomen. Views: Frontal supine view of the abdomen. 1 View. COMPARISON: CR XR KUB 04/11/2025 12:11 PM FINDINGS: Gastrointestinal tract: Normal. No bowel dilation. Bones/joints: Unremarkable. IMPRESSION: No acute findings.
[2025-04-28] MEDS: ACETAMINOPHEN 500MG TAB 500 MG PO (23:29)
[2025-04-28] MEDS: BELLADONNA ALKALOIDS 60 ML ML PO (23:29)
[2025-04-28 23:42] LABS: Lipase 73 U/L (23-300)
[2025-04-29 00:30] VITALS: BP 118/78; PULSE 74; RESP 18; TEMP 37.1; O2SAT 98
== END 2025-04-29 00:37 | disposition home or self-care (01) ==
PROVIDERS: Emergency Provider Emergency Medicine; PCP Nurse Practitioner Family
DX: R10.11 Right upper quadrant pain (principal); F17.290 Nicotine dependence, other tobacco product, uncomplicated
CPT/HCPCS: 74018; 80053; 81001; 83690; 85025; 99284; 99285

== ENCOUNTER 2025-05-01 11:11 | Emergency (ER) | payer OTHER, SELFPAY ==
--- OUTSIDE RECORDS SUMMARY | 2025-03-27 19:35 | XMS_ITS | Encounter Summary ---
Author Organization Healthcare Address [address] [place] [address] Care Team Providers Care Coal Loader Name Role Phone Sarika Moyer ISAIAH Primary Care Provider + Reason for Visit * Reason Comments Pelvic Pain Encounter Details Date Type Department Care Team (Late st Contact Info) Description 03/27/2025 8:35 PM EDT - 03/28/2025 1:22 AM EDT Emergency [facility] Emergency Department [address] [place] [address] Rose Cortes MD [address] [place] [address] of unknown anatomic location (Primary Dx) Discharge [...] as able. Please increase your water intake. [place] use of warm and/or cold compresses. Primary [...] here is available to you via the [facility] Internet portal. Please make sure that you are registered for access to this. documented in this encounter Miscellaneous Notes * Consults - Ivon Marmolejo MD - 03/28/2025 1:16 AM EDTAssociated Order(s): Consult to Gynecology Gynecology Consult Note Patient Name: Ivon BARROS: 2000 Consult to Gynecology Consult performed by: Ivon Marmolejo MD Consult ordered by: Ivana oLredo PA Subjective Subjective History of Present Illness: Ivon Jeter is a 24 y.o. with PUL being followed at [facility] who presents for RLQ pain. Patient reports that this is her first . She was having her beta hCG trended for pregnancyof unknown location, with the trend showing an inappropriate rise. Per [facility] records reviewed by ED MICHAEL, on 03/25/25 beta hCG was 568, down from 701. At this time patient received a dose of IM methotrexate. Yesterday morning/afternoon, patient reports that she had increased right lower quadrant/pelvic pain with associated nausea. At [facility] yesterday, beta hCG was found to [...] - Patient with PUL being followed at [facility] - Beta hCG trend shown to be inappropriately rising > 03/17: 258 > 03/19: 276 > 03/20: 370 > 03/21: 342 > 03/24: 701 > 03/25: 568 -- Dose of methotrexate 03/25 -- > 03/27: 543 - Pt with increased RLQ pain 03/27 prompting her to present first to [facility] where beta was noted to have decreased slightly from 03/25. TVUS not directly reviewed, however records indicatea 1.5 cm unknown structure was seen in the R adnexa. - Patient was discharged home from [facility], but due to persistent pain presented [...] with patient that her beta hCG at [facility] today was encouraging. Explained that often [...] Dispo: stable for discharge home from a PRESSURE WASHER standpoint. Thank you for including us in the care of this patient. This consult was staffed with Dr. Bowers. Please message on-call PRESSURE WASHER resident via [employer] Secure Chat or page [phone] (M-F 6a-6p) or [phone] (nights/weekends) for questions or concerns regarding this patient's care. Ivon Marmolejo MD PGY3 Obstetrics and Gynecology [1] Past Medical History: Diagnosis Date Other specified health status No pertinent past medical history [2] Past Surgical History: Procedure Laterality Date DENTAL SURGERY N/A Dental surgery from [facility] TONSILLECTOMY N/A Tonsillectomy from [facility] [3] Family History Problem Relation Name Age [...] SOA, and urinary symptoms. Medical records from [facility] reviewed: 03/26/2025 -- HCG trends recorded (03/17 -- 258, 03/19--276. 03/20--370. 03/21--342. 03/24--701. 03/25--568.), documented a 1gm Methotrexate given IM on 03/25/2025. 03/27/2025 -- TVUS with1.5cm unknown structure in the right adenxa, 03/27 -- HCG 543. History provided by: Patient potato grader used: No Patient History Past Medical History[1] [...] does not include homicidal or suicidal ideation. [place] Coma Scale Score: 15 ED Course & [...] Abnormality Status --------- ------ ED HIV 1/2 Antibody/Anti...[[id number]] Normal Final result Please view results for [...] discomfort. Has been seen multiple times at [facility] and had HCGs done. Has not had an appropriate doubling. Was given a dose of IM methotrexate a couple of days ago. Had an ult rasound done earlier today which did still document a 1.5 cm mass in the right adnexa and hCG in the mid 500s. Patient otherwise had a reassuring exam and H&H and was discharged for outpatient inspector and adjuster golf club head follow-up. Was offered some hydroxyzine at that time, but deferred. Patient presented to our ER for 2nd opinion of her own accord. H&H stable. HCG still in the 600range. Transvaginal ultrasound does not note a right adnexal mass at this time. Given unclear hCG trend and patient concern, inspector and adjuster golf club head was consulted. Patient signed out pending final inspector and adjuster golf club head recommendations. Clinical Impressions as of 03/28/2533 of [...] mg Oral Given Ivana Loredo PA-C EMR Dragon/Financial Director disclaimer: Much of this encounter note is an electronic political analyst of spoken language to printed text. Electronic political analyst of spoken language may permit erroneous, or [...] TRANSFER OF CARE NOTE Transferring provider: Kali Loerdo PA-C Transferring attending: Dr. Cortes JUAN C [...] as able. Please increase your water intake. [place] use of warm and/or cold compresses. Primary [...] here is available to you via the [facility] Internet portal. Please make sure that you are registered for access to this. Disposition Discharge AVS (Khmer Snapshot) - Printed 03/28/2025 Follow-Ups Go to Sarika Moyer APRN; As needed Follow up with [facility] Obstetrics & Gynecology (Obstetrics and Gynecology) - [...] Reactive Non Reactive 03/27/2025 9:26 PM EDT [facility] Comment:Screening for HIV 1 & 2 antibodies, and P24 antigen is NONREACTIVE. No confirmatory testing is required. Blood Venous blood specimen / Unknown Venipuncture / Unknown 03/27/2025 8:31 PM EDT 03/27/2025 8:44 PM EDT Result [facility] Rose Cortes MD LAB BLOOD ORDERABLES Final Resu lt [facility] [address] [place] [address] * Hepatitis C Antibody - ED (03/27/2025 8:31 PM EDT) Hepatitis C Antibody Negative Negative 03/27/2025 9:26 PM EDT [facility] Blood Venous blood specimen / Unknown Venipuncture / Unknown 03/27/2025 8:31 PM EDT 03/27/2025 8:44 PM EDT Result [facility] us Rose Cortes MD LAB BLOOD ORDERABLES Final Resu lt [facility] [address] [place] [address] * Type and screen (03/27/2025 8:31 PM [...] TEST ORDERABLES Final Result Performing Organization Address [facility] de Phone Number BLOOD BANK [address] [place] [address], [place] * (ABNORMAL) hCG, quantitative, (03/27/2025 8:31 PM EDT) hCG, Total Beta 626.2(H) <5 mIU/mL 03/27/2025 9:[address] [facility] [place] Blood Venous blood specimen / Unknown Venipuncture / Unknown 03/27/2025 8:31 PM EDT 03/27/2025 8:41 PM EDT Narrative [facility] - 03/27/2025 9:22 PM [...] ORDERABLES Final Resu lt Performing Organization Address City/[facility]/ZIP Co de Phone Number [facility] [address] [place] [address] * (ABNORMAL) CBC w/diff (03/27/2025 8:31 PM EDT) WBC Count 11.76(H) 3.70 - 10.30 10*3/uL LAB HEMATOLOGY METHOD 03/27/2025 8:44 PM EDT [facility] RBC Count 4.82 3.90 - 5.20 10*6/uL LAB HEMATOLOGY METHOD 03/27/2025 8:44 PM EDT [facility] HGB 14.2 11.2 - 15.7 g/dL LAB HEMATOLOGY METHOD 03/27/2025 8:44 PM EDT [facility] HCT 39.9 34.0 - 45.0 % LAB HEMATOLOGY METHOD 03/27/2025 8:44 PM EDT [facility] Platelet Count 523(H) 155 - 369 10*3/uL LAB HEMATOLOGY METHOD 03/27/2025 8:44 PM EDT [facility] MCV 83 79 - 98 fL LAB HEMATOLOGY METHOD 03/27/2025 8:44 PM EDT [facility] MCH 29.5 26.0 - 32.0 pg LAB HEMATOLOGY METHOD 03/27/2025 8:44 PM EDT [facility] MCHC 35.6(H) 30.7 - 35.5 g/dL LAB HEMATOLOGY METHOD 03/27/2025 8:44 PM EDT [facility] RDW 12.2 11.5 - 14.5 % LAB HEMATOLOGY METHOD 03/27/2025 8:44 PM EDT [facility] MPV 9.3 8.8 - 12.5 fL LAB HEMATOLOGY METHOD 03/27/2025 8:44 PM EDT [facility] nRBC 0.0 <=0.0 per 100 WBCs LAB HEMATOLOGY METHOD 03/27/2025 8:44 PM EDT [facility] Differential Type Automated LAB HEMATOLOGY METHOD 03/27/2025 8:44 PM EDT [facility] Neutrophils % 71 % LAB HEMATOLOGY METHOD 03/27/2025 8:44 PM EDT [facility] Lymphocytes % 25 % LAB HEMATOLOGY METHOD 03/27/2025 8:44 PM EDT [facility] Monocytes % 4 % LAB HEMATOLOGY METHOD 03/27/2025 8:44 PM EDT [facility] Eosinophils % 0 % LAB HEMATOLOGY METHOD 03/27/2025 8:44 PM EDT [facility] Basophils % 0 % LAB HEMATOLOGY METHOD 03/27/2025 8:44 PM EDT [facility] Immature Granulocytes % 0 % LAB HEMATOLOGY METHOD 03/27/2025 8:44 PM EDT [facility] Neutrophils Absolute 8.17(H) 1.60 - 6.10 10*3/uL LAB HEMATOLOGY METHOD 03/27/2025 8:44 PM EDT [facility] Lymphocytes Absolute 2.96 1.20 - 3.90 10*3/uL LAB HEMATOLOGY METHOD 03/27/2025 8:44 PM EDT [facility] Monocytes Absolute 0.52 0.30 - 0.90 10*3/uL LAB HEMATOLOGY METHOD 03/27/2025 8:44 PM EDT [facility] Eosinophils Absolute 0.03 0.00 - 0.50 10*3/uL LAB HEMATOLOGY METHOD 03/27/2025 8:44 PM EDT [facility] Basophils Absolute 0.05 0.00 - 0.10 10*3/uL LAB HEMATOLOGY METHOD 03/27/2025 8:44 PM EDT [facility] Immature Granulocytes Absolute 0.03 0.00 - 0.06 10*3/uL LAB HEMATOLOGY METHOD 03/27/2025 8:44 PM EDT [facility] Blood Venous blood specimen / Unknown Venipuncture / Unknown 03/27/2025 8:31 PM EDT 03/27/2025 8:41 PM EDT Narrative [facility] - 03/27/2025 8:44 PM EDT Therapeutic decision making should be based on absolute values, rather than percentages. us Rose Cortes MD LAB BLOOD ORDERABLES Final Resu lt [facility] [address] [place] [address] * (ABNORMAL) CMP (03/27/2025 8:31 PM EDT) Glucose, Plasma 96 74 - 99 mg/dL 03/27/2025 9:22 PM EDT [facility] BUN, Plasma 11 7 - 21 mg/dL 03/27/2025 9:22 PM EDT [facility] Creatinine, Plasma 0.48(L) 0.60 - 1.10 mg/dL 03/27/2025 9:22 PM EDT [facility] BUN/Creatinine Ratio 23 03/27/2025 9:22 PM EDT [facility] Sodium, Plasma 136 136 - 145 mmol/L 03/27/2025 9:22 PM EDT [facility] Potassium, Plasma 3.1(L) 3.6 - 4.9 mmol/L 03/27/2025 9:22 PM EDT [facility] Chloride, Plasma 100 97 - 107 mmol/L 03/27/2025 9:22 PM EDT [facility] CO2, Plasma 20(L) 22 - 29 mmol/L 03/27/2025 9:22 PM EDT [facility] Anion Gap 16 6 - 16 mmol/L 03/27/2025 9:22 PM EDT [facility] Total Calcium, Plasma 9.8 8.9 - 10.2 mg/dL 03/27/2025 9:22 PM EDT [facility] Total Protein 7.7 6.3 - 7.9 g/dL 03/27/2025 9:22 PM EDT [facility] Albumin, Plasma 4.9 3.5 - 5.2 g/dL 03/27/2025 9:22 PM EDT [facility] AST, Plasma 17 10 - 35 U/L 03/27/2025 9:22 PM EDT [facility] ALT, Plasma 8(L) 10 - 35 U/L 03/27/2025 9:22 PM EDT [facility] Alkaline Phosphatase, Plasma 102 35 - 104 U/L 03/27/2025 9:22 PM EDT [facility] Total Bilirubin, Plasma 1.3(H) 0.2 - 1.1 mg/dL 03/27/2025 9:22 PM EDT [facility] eGFRcr 137.5 mL/min/1.7 3m*2 03/27/2025 9:22 PM EDT [facility] Comment:Reported eGFRcr in m L/min/1.73m2 is based the CKD-EPI 2020 equation that does not use a race coefficient. Blood Venous blood specimen / Unknown Venipuncture / Unknown 03/27/2025 8:31 PM EDT 03/27/2025 8:41 PM EDT us Rose Cortes MD LAB BLOOD ORDERABLES Final Resu lt [facility] [address] [place] [address] documented in this encounter Visit Diagnoses Diagnosis [...] Foss) documented in this encounter Care Teams Coal Loader Relationship Specialty Start Date End Date Sarika Moyer APRN [address] [place] [id number] PCP - General 10/14/20 documented as of this encounter
--- OUTSIDE RECORDS SUMMARY | 2025-04-05 22:43 | XMS_ITS | Encounter Summary ---
Author Organization [employer] ([place], [place], [place], [place], [place]) Address [address] [place] [address] Care Team Providers Care Knot Picker Cloth Name Role Phone Sarika Moyer APRN Primary [...] EST - 04/06/2025 2:31 AM EST Emergency [facility] Emergency Department [address] [place] [phone] Keke Gar MD [address] [place] [address] Ectopic (Primary Dx) Discharge Disposition: Home or [...] be sent through Care Everywhere. 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 IMPRESSION: Authenticated and Keke Gar MD [facility] US ORDERABLES Edited Result - Final * (ABNORMAL) Comprehensive metabolic panel (04/05/2025 11:30 PM EST) Sodium 140 136 - 145 meq/L 04/06/2025 12:03 AM [facility] Potassium 3.3(L) 3.5 - 5.1 meq/L 04/06/2025 12:03 AM [facility] Chloride 102 98 - 107 meq/L 04/06/2025 12:03 AM [facility] CO2 25 21 - 32 meq/L 04/06/2025 12:03 AM [facility] Calcium 9.5 8.5 - 10.1 mg/dL 04/06/2025 12:03 AM [facility] Glucose 106(H) 74 - 100 mg/dL 04/06/2025 12:03 AM [facility] BUN 12 7 - 18 mg/dL 04/06/2025 12:03 AM [facility] Creatinine 0.60 0.55 - 1.10 mg/dL 04/06/2025 12:03 AM [facility] BUN/Creatinine 20 04/06/2025 12:03 AM [facility] Albumin 4.5 3.4 - 5.0 g/dL 04/06/2025 12:03 AM [facility] Alkaline Phosphatase 91 46 - 116 U/L 04/06/2025 12:03 AM [facility] ALT 10(L) 12 - 78 U/L 04/06/2025 12:03 AM [facility] AST 14(L) 15 - 37 U/L 04/06/2025 12:03 AM [facility] Total Bilirubin 0.3 0.2 - 1.0 mg/dL 04/06/2025 12:03 AM [facility] Protein, Total 8.0 6.4 - 8.2 gm/dL 04/06/2025 12:03 AM [facility] Anion Gap 16 11 - 22 04/06/2025 12:03 AM [facility] A/G Ratio 1.3 04/06/2025 12:03 AM [facility] Globulin 3.5 g/dL 04/06/2025 12:03 AM [facility] Osmolality Calc 279.6 mOsm/kg 12:03 AM [facility] eGFR (mL/min/1.73m2) >60 >=60 mL/min/1.7 3m2 04/06/2025 12:03 AM [facility] Comment:ESTIMATED GFR IS NOT ACCURATE CREATININE CLEARANCE IN PREDICTING GLOMERULAR FILTRATION RATE. ESTIMATED GFR IS NOT APPLICABLE FOR DIALYSIS PATIENTS. Blood Venipuncture / Unknown 04/05/2025 11:30 PM EST 04/05/2025 11:41 PM EST us Keke Gar MD LAB BLOOD ORDERABLES Lainey mckay Result [facility] [address] [id number] [[email or web address]] [phone] * (ABNORMAL) CBC with Auto Diff (04/05/2025 11:30 PM EST) WBC 9.8 4.8 - 10.8 K/ L 04/05/2025 11:45 PM [facility] RBC 4.72 3.50 - 5.20 M/ L 04/05/2025 11:45 PM [facility] Hemoglobin 13.8 11.7 - 15.8 GM/DL 04/05/2025 11:45 PM [facility] Hematocrit 40.9 35.0 - 47.0 % 04/05/2025 11:45 PM [facility] MCV 87 81 - 101 fL 04/05/2025 11:45 PM [facility] MCH 29.2 27.0 - 34.0 pg 04/05/2025 11:45 PM [facility] MCHC 33.7 32.0 - 36.0 GM/DL 04/05/2025 11:45 PM [facility] RDW 13.1 11.5 - 14.5 % 04/05/2025 11:45 PM [facility] Platelets 511(H) 150 - 400 K/CU MM 04/05/2025 11:45 PM [facility] MPV 9.2(L) 9.4 - 12.4 fL 04/05/2025 11:45 PM [facility] Nucleated Red Blood Cell 0.0 0 - 0.2 % 04/05/2025 11:45 PM [facility] % Neutros 65 37 - 80 % 04/05/2025 11:45 PM [facility] % Lymphs 27 10 - 50 % 04/05/2025 11:45 PM [facility] % Monos 6 5 - 13 % 04/05/2025 11:45 PM [facility] % Eos 0.8 0.0 - 7.0 % 04/05/2025 11:45 PM [facility] % Baso 1 0 - 3 % 04/05/2025 11:45 PM [facility] NRBC Absolute <0.01 0 - 0.012 K/ul 04/05/2025 11:45 PM [facility] # Neutros 6.35 2.00 - 6.90 K/ L 04/05/2025 11:45 PM EST [facility] # Lymphs 2.68 0.60 - 3.40 K/ L 04/05/2025 11:45 PM EST [facility] # Monos 0.62 0.00 - 0.90 K/ L 04/05/2025 11:45 PM EST [facility] # Eos 0.08 0.00 - 0.70 K/ L 04/05/2025 11:45 PM EST [facility] # Baso 0.05 0.00 - 0.20 K/ L 04/05/2025 11:45 PM EST [facility] % Imm Grans 0.20 % 04/05/2025 11:45 PM EST [facility] # IG 0.02(H) 0.00 - 0.00 K/uL 04/05/2025 11:45 PM EST [facility] Blood Venipuncture / Unknown 04/05/2025 11:30 PM EST 04/05/2025 11:41 PM EST Narrative [facility] - 04/05/2025 11:45 PM EST [...] MD LAB BLOOD ORDERABLES Lainey l Result [facility] [address] [place], [place] [id number], [facility] [phone] * (ABNORMAL) Urinalysis w/Microscopic (04/05/2025 11:04 PM EST) Color, UA Yellow 04/05/2025 11:43 PM EST [facility] Clarity, UA Clear 04/05/2025 11:43 PM [facility] Specific [place], UA 1.025 1.002 - 1.030 04/05/2025 11:43 PM [facility] pH, UA 6.0 5.0 - 9.0 04/05/2025 11:43 PM [facility] Leukocytes, UA Negative Negative 04/05/2025 11:43 PM [facility] Nitrite, UA Negative Negative 04/05/2025 11:43 PM [facility] Protein, UA 1+(A) Negative 04/05/2025 11:43 PM [facility] Glucose, UA Negative Negative 04/05/2025 11:43 PM [facility] Ketones, UA Trace(A) Negative 04/05/2025 11:43 PM [facility] Urobilinogen, UA 0.2 mg/dL Normal 04/05/2025 11:43 PM [facility] Bilirubin, UA Negative Negative 04/05/2025 11:43 PM [facility] Blood, UA 3+(A) Negative 04/05/2025 11:43 PM [facility] RBC, UA 5-10(A) None Seen, Rare /HPF 04/05/2025 11:43 PM [facility] WBC, UA 0-5 None Seen, Occasional , 0-5 /HPF 04/05/2025 11:43 PM [facility] Bacteria, UA 2+(A) None Seen 04/05/2025 11:43 PM [facility] Mucus 1+(A) Trace 04/05/2025 11:43 PM [facility] SQUAMOUS EPITHELIAL 0-5(A) None Seen, Rare /HPF 04/05/2025 11:43 PM [facility] Ca Oxalate [place], UA 2+(A) (none) 04/05/2025 11:43 PM [facility] Specimen Source Urine, Clean Catch 04/05/2025 11:43 PM [facility] Urine URINE SPECIMEN COLLECTION, CLEAN CATCH / Unknown 04/05/2025 11:04 PM EST 04/05/2025 11:04 PM EST us Keke Gar MD URINE ORDERABLES Final Re sult [facility] [address] [id number], [facility] [phone] documented in this encounter Visit Diagnoses Diagnosis Ectopic - Primary Unspecified ectopic without intrauterine documented in this encounter Care Teams Knot Picker Cloth Relationship Specialty Start Date End Date Sarika Moyer, JAVA GOLDEN GATE DEVELOPER [address] [place] [address] PCP - General Nurse Practitioner 04/05/25 documented as of this encounter
--- OUTSIDE RECORDS SUMMARY | 2025-04-10 23:39 | XMS_ITS | Encounter Summary ---
Author Organization [employer] ([place], [place], [place], [place], [place]) Address [address] [place] [address] Care Team Providers Care Pallet Stone Inserter Name Role Phone Sarika Moyer TERMITE CONTROL SERVICER Primary Care Provider + Reason for Visit [...] EST - 04/11/2025 5:09 AM EST Emergency [facility] Emergency Department [address] [place] [phone] Farzad Stiles MD [address] [place] [address] Ectopic (Primary Dx); Hypokalemia Discharge Disposition: Home [...] Follow-up with your primary care doctor or analysis intern, call for appointment. Return to the emergency department for any new or worsening symptoms. RD LABEL INTERNSHIP * Attachments The following attachments cannot be sent through Care Everywhere. * Hypokalemia (Palestinian) * Ectopic Yigl-yq-[id number] (Palestinian) documented in this encounter ED Notes [...] 2. Hypokalemia Farzad Stiles MD 04/11/[address] LABEL INTERNSHIP documented in this encounter Plan of Treatment [...] sac. IMPRESSION: Authenticated and Farzad Stiles MD [facility] ORDERABLES Edited Result - Final * hCG, quantitative, (04/11/2025 1:20 AM EST) HCG Serum Quant 133 mIU/mL 1:58 AM EST [facility] Comment: Results of the [...] MD LAB BLOOD ORDERABLES Final Resu lt [facility] [address] [place] [address] * (ABNORMAL) Comprehensive metabolic panel (04/11/2025 1:20 AM EST) Sodium 142 136 - 145 meq/L 04/11/2025 1:58 AM EST [facility] Potassium 3.1(L) 3.5 - 5.1 meq/L 04/11/2025 1:58 AM EST [facility] Chloride 105 98 - 107 meq/L 04/11/2025 1:58 AM EST [facility] CO2 28 21 - 32 meq/L 04/11/2025 1:58 AM EST [facility] Calcium 9.0 8.5 - 10.1 mg/dL 04/11/2025 1:58 AM EST [facility] Glucose 105(H) 74 - 100 mg/dL 04/11/2025 1:58 AM EST [facility] BUN 11 7 - 18 mg/dL 04/11/2025 1:58 AM EST [facility] Creatinine 0.61 0.55 - 1.10 mg/dL 04/11/2025 1:58 AM [facility] BUN/Creatinine 18 04/11/2025 1:58 AM [facility] Albumin 3.9 3.4 - 5.0 g/dL 04/11/2025 1:58 AM [facility] Alkaline Phosphatase 78 46 - 116 U/L 04/11/2025 1:58 AM [facility] ALT 12 12 - 78 U/L 04/11/2025 1:58 AM [facility] AST 11(L) 15 - 37 U/L 04/11/2025 1:58 AM [facility] Total Bilirubin 0.4 0.2 - 1.0 mg/dL 04/11/2025 1:58 AM [facility] Protein, Total 7.1 6.4 - 8.2 gm/dL 04/11/2025 1:58 AM [facility] Anion Gap 12 11 - 22 04/11/2025 1:58 AM [facility] A/G Ratio 1.2 04/11/2025 1:58 AM [facility] Globulin 3.2 g/dL 04/11/2025 1:58 AM [facility] Osmolality Calc 282.9 mOsm/kg 1:58 AM [facility] eGFR (mL/min/1.73m2) >60 >=60 mL/min/1.7 3m2 04/11/2025 1:58 AM [facility] Comment:ESTIMATED GFR IS NOT ACCURATE CREATININE CLEARANCE IN PREDICTING GLOMERULAR FILTRATION RATE. ESTIMATED GFR IS NOT APPLICABLE FOR DIALYSIS PATIENTS. Blood Venipuncture / Unknown 04/11/2025 1:20 AM EST 04/11/2025 1:23 AM EST us Farzad Stiles MD LAB BLOOD ORDERABLES Final Resu lt [facility] [address] [place] [address], [facility] [phone] * (ABNORMAL) CBC with Auto Diff (04/11/2025 1:20 AM [facility]) WBC 7.3 4.8 - 10.8 K/ L 04/11/2025 1:27 AM [facility] RBC 4.32 3.50 - 5.20 M/ L 04/11/2025 1:27 AM [facility] Hemoglobin 12.7 11.7 - 15.8 GM/DL 04/11/2025 1:27 AM [facility] Hematocrit 37.8 35.0 - 47.0 % 04/11/2025 1:27 AM [facility] MCV 88 81 - 101 fL 04/11/2025 1:27 AM [facility] MCH 29.4 27.0 - 34.0 pg 04/11/2025 1:27 AM [facility] MCHC 33.6 32.0 - 36.0 GM/DL 04/11/2025 1:27 AM [facility] RDW 13.2 11.5 - 14.5 % 04/11/2025 1:27 AM [facility] Platelets 432(H) 150 - 400 K/CU MM 04/11/2025 1:27 AM [facility] MPV 9.1(L) 9.4 - 12.4 fL 04/11/2025 1:27 AM [facility] Nucleated Red Blood Cell 0.0 0 - 0.2 % 04/11/2025 1:27 AM [facility] % Neutros 55 37 - 80 % 04/11/2025 1:27 AM [facility] % Lymphs 34 10 - 50 % 04/11/2025 1:27 AM [facility] % Monos 9 5 - 13 % 04/11/2025 1:27 AM [facility] % Eos 1.5 0.0 - 7.0 % 04/11/2025 1:27 AM [facility] % Baso 1 0 - 3 % 04/11/2025 1:27 AM [facility] NRBC Absolute <0.01 0 - 0.012 K/ul 04/11/2025 1:27 AM EST [facility] # Neutros 4.04 2.00 - 6.90 K/ L 04/11/2025 1:27 AM EST [facility] # Lymphs 2.51 0.60 - 3.40 K/ L 04/11/2025 1:27 AM EST [facility] # Monos 0.62 0.00 - 0.90 K/ L 04/11/2025 1:27 AM EST [facility] # Eos 0.11 0.00 - 0.70 K/ L 04/11/2025 1:27 AM EST [facility] # Baso 0.04 0.00 - 0.20 K/ L 04/11/2025 1:27 AM EST [facility] % Imm Grans 0.10 % 04/11/2025 1:27 AM EST [facility] # IG 0.01(H) 0.00 - 0.00 K/uL 04/11/2025 1:27 AM EST [facility] Blood Venipuncture / Unknown 04/11/2025 1:20 AM EST 04/11/2025 1:23 AM EST Narrative [facility] - 04/11/2025 1:27 AM [...] MD LAB BLOOD ORDERABLES Final Resu lt [facility] [address] [place], [place] [address] [phone] documented in this encounter Visit Diagnoses Diagnosis [...] access) documented in this encounter Care Teams Pallet Stone Inserter Relationship Specialty Start Date End Date Sarika Moyer, TERMITE CONTROL SERVICER [address] [place] [address] PCP - General Nurse Practitioner 04/05/25 documented as of this encounter
--- OUTSIDE RECORDS SUMMARY | 2025-04-18 19:23 | XMS_ITS | Encounter Summary ---
Author Organization [employer] ([place], [place], [place], [place], [place]) Address [address] [place] [address] Care Team Providers Care Cupola Tapper Name Role Phone Sarika Moyer VINEYARD TENDER Primary Care Provider + Reason for Visit * Reason Comments Vaginal Bleeding Pt was diagnosed wit h an ectopic on March 25. States she is passing clots today. HCG was 11 yesterday. Encounter Details Date Type Department Care Team (Late st Contact Info) Description 04/18/2025 7:23 PM EST - 04/18/2025 9:25 PM EST Emergency [facility] Emergency Department [address] [place] [phone] Toy Egan MD [address] [place] [address] Vaginal bleeding (Primary Dx) Discharge Disposition: Home or Self [...] Sign Reading Time Taken Comments Blood Pressure 114/69 04/18/2025 9:10 PM EST Pulse 86 04/18/2025 8:05 PM EST Temperature 37.2 C (99 F) 04/18/2025 7:30 PM EST Respiratory Rate 16 04/18/2025 7:30 PM EST Oxygen Saturation 99% 04/18/2025 8:05 PM EST Inhaled Oxygen Concentration - - Weight 38.6 kg (85 lb) 04/18/2025 7:30 PM EST Height 144.8 cm (4' 9 ) 04/18/2025 7:30 PM EST Body Mass Index 18.39 04/18/2025 7:30 PM EST documented in this encounter Discharge Instructions * Attachments The following attachments cannot be sent through Care Everywhere. * Abnormal Uterine Bleeding [id number] ([place] Citizen) documented in this encounter ED Notes * Toy Egan MD - 04/18/2025 7:45 PM EST Subjective Chief Complaint: Vaginal Bleeding (Pt was diagnosed with an ectopic on March 25. States she is passing clots today. HCG was 11 yesterday. ) Patient is a 24-year-old female was diagnosed with an ectopic at the end of March. Patient apparently was given methotrexate and did well. She presents now with 2 days of vaginal bleeding. She was last seen on the with similar complaints. Ultrasound at that time did not show any abnormalities. Patient has some mild cramping pain which she states feels like her normal menstrual cramps. She took Tylenol with some relief. Patient History Past Medical History: Diagnosis Date PVC (premature ventricular contraction) Past Surgical History: Procedure Laterality Date TONSILLECTOMY No family history on file. Social History Tobacco Use Smoking status: Every Day Types: Cigarettes Smokeless tobacco: Never Tobacco comments: Pt vapes Substance Use Topics Alcohol use: Never I reviewed the HPI, ROS and PFSH documentation recorded by others in the medical record and supplemented my note as needed. Review of Systems Review of Systems Constitutional: Negative. HENT: Negative. Eyes: Negative. Respiratory: Negative. Cardiovascular: Negative. Gastrointestinal: Negative. Endocrine: Negative. Genitourinary: Positive for pelvic pain and vaginal bleeding. Musculoskeletal: Negative. Skin: Negative. Allergic/Immunologic: Negative. Neurological: Negative. Hematological: Negative. Psychiatric/Behavioral: Negative. All other systems reviewed and are negative. Physical Exam ED Triage Vitals [04/18/251929] Encounter Vitals Group BP 115/77 Girls Systolic BP Percentile Girls Diastolic BP Percentile Boys Systolic BP Percentile Boys Diastolic BP Percentile Pulse 99 Resp 16 Temp 99 ??F (37.2 ??C) Temp src Temporal Art SpO2 95 % Weight 38.6 kg (85 lb) Height 1.448 m (4' 9 ) Head Circumference Peak Flow Pain Score Zero Pain Loc Pain Education Exclude from Growth Chart Physical Exam Vitals and nursing note reviewed. Constitutional: Appearance: She is well-developed. HENT: Head: Normocephalic and atraumatic. Right Ear: External ear normal. Left Ear: External ear normal. Nose: Nose normal. Mouth/Throat: Mouth: Mucous membranes are moist. Tonsils: No tonsillar exudate or tonsillar abscesses. Eyes: Conjunctiva/sclera: Conjunctivae normal. Pupils: Pupils are equal, round, and reactive to light. Cardiovascular: Rate and Rhythm: Normal rate and regular rhythm. Heart sounds: Normal heart sounds. No murmur heard. Pulmonary: Effort: Pulmonary effort is normal. No respiratory distress. Breath sounds: Normal breath sounds. Abdominal: General: Bowel sounds are normal. There is no distension. Palpations: Abdomen is soft. Tenderness: There is no abdominal tenderness. There is no guarding or rebound. Musculoskeletal: Cervical back: Normal range of motion and neck supple. Lymphadenopathy: Cervical: No cervical adenopathy. Skin: General: Skin is warm and dry. Capillary Refill: Capillary refill takes less than 2 seconds. Neurological: General: No focal deficit present. Mental Status: She is alert and oriented to person, place, and time. Psychiatric: Mood and Affect: Mood normal. Behavior: Behavior normal. Neurological Exam Mental Status Alert. Oriented to person, place, and time. Cranial Nerves CN III, IV, : Pupils equal round and reactive to light bilaterally. Ortho Exam ED Course & MDM Medications - No data to display Results for orders placed or performed during the hospital encounter of 04/18/25 hCG, quantitative, Result Value Ref Range HCG Serum Quant 6 mIU/mL No orders to display Procedures Medical Decision Making Patient is a 24-year-old female who presents to the emergency room complaining of vaginal bleeding abdominal pain. Differential diagnosis includes normal menses, incomplete AB, threatened AB, dysfunctional uterine bleeding. Patient's previous records were reviewed. She had an ultrasound done on that did not show any retained products or any other abnormality. Her last quant hCG was 113,hCG at this time was 6. May be starting her normal menses but does not appear to be a sign of an ectopic. I reviewed her previous ultrasound no indication for an ultrasound at this time she was released in good condition Amount and/or Complexity of Data Reviewed Labs: ordered. Assessment & Plan Clinical Impression Diagnosis Comment Added By Time Added Vaginal bleeding Toy Egan MD 04/18/2025 9:19 PM Disposition Discharge [1] - 04/18/2025 9:19 PM New Prescriptions No medications on file Contact information for follow-up Sarika Moyer APRN Specialty: Nurse Practitioner Relationship: PCP - General [address] [facility] [address] Next Steps: Schedule an appointment as soon as possible for a visit in 2 day(s) Electronically Signed By Toy Egan MD 04/18/252118 AND SHOE REPAIRMAN documented in this encounter Plan of Treatment Not on file documented as of this encounter Procedures Procedure Name Priority Date/Time Associated Diagnosis Comments HCG, QUANTITATIVE, STAT 04/18/2025 8:19 PM EST documented in this encounter Results * hCG, quantitative, (04/18/2025 8:19 PM EST) Pathologist [facility] HCG Serum Quant 6 mIU/mL 9:06 PM EST [facility] Comment: Results of the HCG quant [...] 6-8 weeks 15,000-200,000 2-3 months 10,000-100,000 Blood ENTIRE LEFT UPPER ARM / Unknown Venipuncture / Unknown 04/18/2025 8:19 PM EST 04/18/2025 8:23 PM EST us Toy Egan MD LAB BLOOD ORDERABLES Final Resu lt [facility] [address] [place] [address], [facility] [phone] documented in this encounter Visit Diagnoses Diagnosis Vaginal bleeding- Primary Other specified noninflammatory disorder of vagina documented in this encounter Care Teams Cupola Tapper Relationship Specialty Start Date End Date Sarika Moyer, VINEYARD TENDER [address] [place] [address] PCP - General Nurse Practitioner 04/05/25 documented as of this encounter
--- OUTSIDE RECORDS SUMMARY | 2025-04-29 18:54 | XMS_ITS | Encounter Summary ---
Author Organization [employer] ([place], [place], [place], [place], [place]) Address [address] [place] [address] Care Team Providers Care Lead Operator Name Role Phone Sarika Moyer DIGITAL MEDIA DESIGNER Primary Care Provider + Reason for Visit * Reason Comments Abdominal Pain Pt c/o abdominal zion n. Pt had a ectopic . Encounter Details Date Type Department Care Team (Late st Contact Info) Description 04/29/2025 6:54 PM EST - 04/29/2025 10:26 PM EST Emergency Emergency Department [address] [place] [phone] Zara Ross MD [address] [place] [address] Periumbilical abdominal pain (Primary Dx) Discharge Disposition: [...] your primary care doctor and with your WOOD BORING MACHINE OPERATOR. Please return to the emergency department if you have absolutely any concerns at any time. BORING MACHINE OPERATOR documented in this encounter Plan of Treatment Pending Results Name Type Priority Associated Diagnoses Date /Time ECG 12 lead ECG STAT 04/29/2025 7: 34 PM EST documented as of this encounter Procedures Procedure [...] IMG CT ORDERABLES Final R esult * (ABNORMAL) Urinalysis Microscopic Only (04/29/2025 7:34 PM EST) WBC, UA Occasional None Seen, Occasional , 0-5 /HPF 04/29/2025 7:55 PM EST [facility] RBC, UA None Seen None Seen, Rare /HPF 04/29/2025 7:55 PM EST [facility] Bacteria, UA 2+(A) None Seen 04/29/2025 7:55 PM EST [facility] Amorphous Crystals 2+(A) None Seen, Trace 04/29/2025 7:55 PM EST [facility] SQUAMOUS EPITHELIAL Occasional(A) None Seen, Rare /HPF 04/29/2025 7:55 PM EST [facility] Urine URINE SPECIMEN COLLECTION, CLEAN CATCH / Unknown 04/29/2025 7:34 PM EST 04/29/2025 7:40 PM EST us Zara Ross MD URINE ORDERABLES Final Re sult [facility] [address] [place] [address] * (ABNORMAL) Urinalysis, Reflex Microscopic and Culture If Indicated (04/29/2025 7:34 PM EST) Color, UA Light Yellow 04/29/2025 7:54 PM [facility] Clarity, UA Turbid 04/29/2025 7:54 PM [facility] Specific [place], UA 1.020 1.002 - 1.030 04/29/2025 7:54 PM [facility] pH, UA 7.0 5.0 - 9.0 04/29/2025 7:54 PM [facility] Leukocytes, UA Negative Negative 04/29/2025 7:54 PM [facility] Nitrite, UA Negative Negative 04/29/2025 7:54 PM [facility] Protein, UA Trace(A) Negative 04/29/2025 7:54 PM [facility] Glucose, UA Negative Negative 04/29/2025 7:54 PM [facility] Ketones, UA Negative Negative 04/29/2025 7:54 PM EST [facility] Bilirubin, UA Negative Negative 04/29/2025 7:54 PM EST [facility] Blood, UA Negative Negative 04/29/2025 7:54 PM EST [facility] Urobilinogen, UA 0.2 mg/dL Normal 04/29/2025 7:54 PM EST [facility] Specimen Source Urine, Clean Catch 04/29/2025 7:54 PM EST [facility] Urine URINE SPECIMEN COLLECTION, CLEAN CATCH / Unknown 04/29/2025 7:34 PM EST 04/29/2025 7:40 PM EST us Zara Ross MD URINE ORDERABLES Final Re sult Performing Organization Address City/[facility]/ZIP Co de Phone Number [facility] [address] [place] [address] * D-dimer (04/29/2025 7:31 PM EST) D-Dimer, Quant ([facility] SJE) 140.69 <=500.00 ng/mL FEU 04/29/2025 8:13 PM EST [facility] Comment: A normal D-dimer result <500 [...] ORDERABLES Lainey l Result Performing Organization Address [facility]/ZIP Co de Phone Number [facility] [address] [place] [address] * (ABNORMAL) High Sensitivity Troponin I (04/29/2025 7:31 PM EST) [facility] Troponin I High Sensitivity (pg/mL) <4(L) 4 - 60.3 pg/mL 04/29/2025 8:08 PM EST [facility] Comment: Troponin Result (pg/mL) *Interpretation 4-60.3 [...] BLOOD ORDERABLES Lainey l Result [facility] [address] [place] [address] * Lipase (04/29/2025 7:31 PM EST) [facility] Lipase 40 16 - 77 U/L 04/29/2025 8:07 PM EST [facility] Blood Venipuncture / Unknown 04/29/2025 7:31 PM EST 04/29/2025 7:40 PM EST Zara Ross MD LAB BLOOD ORDERABLES Lainey l Result [facility] [address] [place] [address] * (ABNORMAL) Comprehensive metabolic panel (04/29/2025 7:31 PM EST) [facility] Sodium 140 136 - 145 meq/L 04/29/2025 8:07 PM EST [facility] Potassium 3.6 3.5 - 5.1 meq/L 04/29/2025 8:07 PM [facility] Chloride 102 98 - 107 meq/L 04/29/2025 8:07 PM [facility] CO2 29 21 - 32 meq/L 04/29/2025 8:07 PM [facility] Calcium 9.6 8.5 - 10.1 mg/dL 04/29/2025 8:07 PM [facility] Glucose 89 74 - 100 mg/dL 04/29/2025 8:07 PM [facility] BUN 12 7 - 18 mg/dL 04/29/2025 8:07 PM [facility] Creatinine 0.54(L) 0.55 - 1.10 mg/dL 04/29/2025 8:07 PM [facility] BUN/Creatinine 22 04/29/2025 8:07 PM [facility] Albumin 4.5 3.4 - 5.0 g/dL 04/29/2025 8:07 PM [facility] Alkaline Phosphatase 97 46 - 116 U/L 04/29/2025 8:07 PM [facility] ALT 12 12 - 78 U/L 04/29/2025 8:07 PM [facility] AST 12(L) 15 - 37 U/L 04/29/2025 8:07 PM [facility] Total Bilirubin 0.3 0.2 - 1.0 mg/dL 04/29/2025 8:07 PM [facility] Protein, Total 8.1 6.4 - 8.2 gm/dL 04/29/2025 8:07 PM [facility] Anion Gap 13 - 04/29/2025 8:07 PM [facility] A/G Ratio 1.3 04/29/2025 8:07 PM [facility] Globulin 3.6 g/dL 04/29/2025 8:07 PM [facility] Osmolality Calc 278.6 mOsm/kg 8:07 PM [facility] eGFR (mL/min/1.73m2) >60 >=60 mL/min/1.7 3m2 04/29/2025 8:07 PM EST [facility] Comment:ESTIMATED GFR IS NOT ACCURATE CREATININE CLEARANCE IN PREDICTING GLOMERULAR FILTRATION RATE. ESTIMATED GFR IS NOT APPLICABLE FOR DIALYSIS PATIENTS. Blood Venipuncture / Unknown 04/29/2025 7:31 PM EST 04/29/2025 7:40 PM EST Zara Ross MD LAB BLOOD ORDERABLES Lainey l Result Performing Organization Address City/[facility]/ZIP Co de Phone Number [facility] [address] [phone] * hCG, quantitative, (04/29/2025 7:31 PM EST) HCG Serum Quant 1 mIU/mL 8:07 PM EST [facility] Comment: [...] BLOOD ORDERABLES Lainey l Result [facility] [address] [phone] * (ABNORMAL) CBC with Auto Diff (04/29/2025 7:31 PM EST) WBC 9.4 4.8 - 10.8 K/ L 04/29/2025 7:44 PM [facility] RBC 4.73 3.50 - 5.20 M/ L 04/29/2025 7:44 PM [facility] Hemoglobin 13.7 11.7 - 15.8 GM/DL 04/29/2025 7:44 PM [facility] Hematocrit 41.2 35.0 - 47.0 % 04/29/2025 7:44 PM [facility] MCV 87 81 - 101 fL 04/29/2025 7:44 PM [facility] MCH 29.0 27.0 - 34.0 pg 04/29/2025 7:44 PM [facility] MCHC 33.3 32.0 - 36.0 GM/DL 04/29/2025 7:44 PM [facility] RDW 12.9 11.5 - 14.5 % 04/29/2025 7:44 PM [facility] Platelets 501(H) 150 - 400 K/CU MM 04/29/2025 7:44 PM [facility] MPV 9.1(L) 9.4 - 12.4 fL 04/29/2025 7:44 PM [facility] Nucleated Red Blood Cell 0.0 0 - 0.2 % 04/29/2025 7:44 PM [facility] % Neutros 64 37 - 80 % 04/29/2025 7:44 PM [facility] % Lymphs 28 10 - 50 % 04/29/2025 7:44 PM [facility] % Monos 7 5 - 13 % 04/29/2025 7:44 PM [facility] % Eos 0.5 0.0 - 7.0 % 04/29/2025 7:44 PM [facility] % Baso 0 0 - 3 % 04/29/2025 7:44 PM [facility] NRBC Absolute <0.01 0 - 0.012 K/ul 04/29/2025 7:44 PM EST [facility] # Neutros 6.04 2.00 - 6.90 K/ L 04/29/2025 7:44 PM EST [facility] # Lymphs 2.60 0.60 - 3.40 K/ L 04/29/2025 7:44 PM EST [facility] # Monos 0.69 0.00 - 0.90 K/ L 04/29/2025 7:44 PM EST [facility] # Eos 0.05 0.00 - 0.70 K/ L 04/29/2025 7:44 PM EST [facility] # Baso 0.04 0.00 - 0.20 K/ L 04/29/2025 7:44 PM EST [facility] % Imm Grans 0.10 % 04/29/2025 7:44 PM EST [facility] # IG 0.01(H) 0.00 - 0.00 K/uL 04/29/2025 7:44 PM EST [facility] Blood Venipuncture / Unknown 04/29/2025 7:31 PM EST 04/29/2025 7:40 PM EST Narrative [facility] - 04/29/2025 7:44 PM EST When [...] BLOOD ORDERABLES Lainey mckay Result [facility] [address] [place] [id number], [facility] [phone] documented in this encounter Visit Diagnoses Diagnosis Periumbilical abdominal pain- Primary Abdominal pain, periumbilic documented in this encounter Care Teams Lead Operator Relationship Specialty Start Date End Date Sarika Moyer, DIGITAL MEDIA DESIGNER [address] [phone] PCP - General Nurse Practitioner 04/05/25 documented as of this encounter
[2025-05-01 11:19] VITALS: BP 137/86; PULSE 81; O2SAT 99
[2025-05-01 11:24] VITALS: BP 137/96; PULSE 74; RESP 20; TEMP 36.8; O2SAT 97; BMI 18.3
--- OUTSIDE RECORDS SUMMARY | 2025-05-01 11:27 | XMS_ITS | Clinical Summary ---
Author Organization [employer] ([place], [place], [place], [place], [place]) Address [address] [place] [address] Care Team Providers Care Industrial Equipment Mechanic Name Role Phone Sarika Moyer METAL FABRICATOR APPRENTICE Primary Care Provider + Allergies Active Allergy Reactions Criticality Noted Date Comments Escitalopram 04/05/2025 Acetaminophen-Dm 04/05/2025 Medications No known medications Encounters Date Type Department Care Team Description 04/29/2025 6:54 PM EST - 04/29/2025 10:26 PM EST Emergency [facility] Emergency Department [address] [place] [phone] Zara Ross MD Periumbilical abdominal pain (Primary Dx) Discharge Disposition: Home or Self Care 04/29/2025 Travel 04/18/2025 7:23 PM EST - 04/18/2025 9:25 PM EST Emergency [facility] Emergency Department [address] [place] [phone] Toy Egan MD Vaginal bleeding (Primary Dx) Discharge Disposition: Home or Self Care 04/18/2025 Travel 04/10/2025 11:39 PM EST - 04/11/2025 5:09 AM EST Emergency [facility] Emergency Department [address] [place] [phone] Farzad Stiles MD Ectopic (Primary Dx); Hypokalemia Discharge Disposition: Home or Self Care 04/10/2025 Travel 04/05/2025 10:43 PM EST - 04/06/2025 2:31 AM EST Emergency [facility] Emergency Department [address] [place] [phone] Keke Gar MD Ectopic (Primary Dx) Discharge [...] Mass Index 18.61 04/29/2025 7:00 PM EST Plan of Treatment Health Maintenance [...] FS_MODEL_IP_ECG 12-LEAD STAT 04/29/2025 7:34 PM EST URINALYSIS MICROSCOPIC STAT 7:34 PM EST URINALYSIS, REFLEX MICROSCOPIC AND CULTURE IF INDICATED STAT 04/29/2025 7:34 PM EST D-DIMER STAT 04/29/2025 7:31 PM EST HIGH SENSITIVITY TROPONIN I STAT 04/29/2025 7:31 PM EST LIPASE STAT 04/29/2025 7:31 PM EST COMPREHENSIVE METABOLIC PANEL STAT 04/29/2025 7:31 PM EST HCG, QUANTITATIVE, STAT 04/29/2025 7:31 PM EST CBC W/ AUTO DIFF STAT 04/29/2025 7:31 PM EST HCG, QUANTITATIVE, STAT 04/18/2025 8:19 PM EST [...] EST from Last 3 Months Results * CT ABDOMEN/PELVIS WITHOUT IV CONTRAST [...] CT ORDERABLES Final R esult * (ABNORMAL) Urinalysis, Reflex Microscopic and Culture If Indicated (04/29/2025 7:34 PM EST) Color, UA Light Yellow 04/29/2025 7:54 PM EST [facility] Clarity, UA Turbid 04/29/2025 7:54 PM EST [facility] Specific [place], UA 1.020 1.002 - 1.030 04/29/2025 7:54 PM EST [facility] pH, UA 7.0 5.0 - 9.0 04/29/2025 7:54 PM EST [facility] Leukocytes, UA Negative Negative 04/29/2025 7:54 PM EST [facility] Nitrite, UA Negative Negative 04/29/2025 7:54 PM EST [facility] Protein, UA Trace(A) Negative 04/29/2025 7:54 PM EST [facility] Glucose, UA Negative Negative 04/29/2025 7:54 PM EST [facility] Ketones, UA Negative Negative 04/29/2025 7:54 PM EST [facility] Bilirubin, UA Negative Negative 04/29/2025 7:54 PM EST [facility] Blood, UA Negative Negative 04/29/2025 7:54 PM EST [facility] Urobilinogen, UA 0.2 mg/dL Normal 04/29/2025 7:54 PM EST [facility] Specimen Source Urine, Clean Catch 04/29/2025 7:54 PM EST [facility] Urine URINE SPECIMEN COLLECTION, CLEAN CATCH / Unknown 04/29/2025 7:34 PM EST 04/29/2025 7:40 PM EST us Zara Ross MD URINE ORDERABLES Final Re sult [facility] [address] [place], [place] [address] [phone] * (ABNORMAL) Urinalysis Microscopic Only (04/29/2025 7:34 PM EST) WBC, UA Occasional None Seen, Occasional , 0-5 /HPF 04/29/2025 7:55 PM EST [facility] RBC, UA None Seen None Seen, Rare /HPF 04/29/2025 7:55 PM EST [facility] Bacteria, UA 2+(A) None Seen 04/29/2025 7:55 PM EST [facility] Amorphous Crystals 2+(A) None Seen, Trace 04/29/2025 7:55 PM EST [facility] SQUAMOUS EPITHELIAL Occasional(A) None Seen, Rare /HPF 04/29/2025 7:55 PM EST [facility] Urine URINE SPECIMEN COLLECTION, CLEAN CATCH / Unknown 04/29/2025 7:34 PM EST 04/29/2025 7:40 PM EST us Zara Ross MD URINE ORDERABLES Final Re sult [facility] [address] [place] [address] * (ABNORMAL) CBC with Auto Diff (04/29/2025 7:31 PM EST) Only the most recent of3 resultswithin the time period is included. Pathologist [facility] WBC 9.4 4.8 - 10.8 K/ L 04/29/2025 7:44 PM [facility] RBC 4.73 3.50 - 5.20 M/ L 04/29/2025 7:44 PM [facility] Hemoglobin 13.7 11.7 - 15.8 GM/DL 04/29/2025 7:44 PM [facility] Hematocrit 41.2 35.0 - 47.0 % 04/29/2025 7:44 PM [facility] MCV 87 81 - 101 fL 04/29/2025 7:44 PM [facility] MCH 29.0 27.0 - 34.0 pg 04/29/2025 7:44 PM [facility] MCHC 33.3 32.0 - 36.0 GM/DL 04/29/2025 7:44 PM [facility] RDW 12.9 11.5 - 14.5 % 04/29/2025 7:44 PM EST [facility] Platelets 501(H) 150 - 400 K/CU MM 04/29/2025 7:44 PM [facility] MPV 9.1(L) 9.4 - 12.4 fL 04/29/2025 7:44 PM EST [facility] Nucleated Red Blood Cell 0.0 0 - 0.2 % 04/29/2025 7:44 PM [facility] % Neutros 64 37 - 80 % 04/29/2025 7:44 PM [facility] % Lymphs 28 10 - 50 % 04/29/2025 7:44 PM [facility] % Monos 7 5 - 13 % 04/29/2025 7:44 PM [facility] % Eos 0.5 0.0 - 7.0 % 04/29/2025 7:44 PM [facility] % Baso 0 0 - 3 % 04/29/2025 7:44 PM [facility] NRBC Absolute <0.01 0 - 0.012 K/ul 04/29/2025 7:44 PM [facility] # Neutros 6.04 2.00 - 6.90 K/ L 04/29/2025 7:44 PM EST [facility] # Lymphs 2.60 0.60 - 3.40 K/ L 04/29/2025 7:44 PM EST [facility] # Monos 0.69 0.00 - 0.90 K/ L 04/29/2025 7:44 PM EST [facility] # Eos 0.05 0.00 - 0.70 K/ L 04/29/2025 7:44 PM [facility] # Baso 0.04 0.00 - 0.20 K/ L 04/29/2025 7:44 PM [facility] % Imm Grans 0.10 % 04/29/2025 7:44 PM [facility] # IG 0.01(H) 0.00 - 0.00 K/uL 04/29/2025 7:44 PM EST [facility] Blood Venipuncture / Unknown 04/29/2025 7:31 PM EST 04/29/2025 7:40 PM EST Narrative [facility] - 04/29/2025 7:44 PM EST [...] Blast? Flag noted Atypical Lymph flag noted Zara Ross MD LAB BLOOD ORDERABLES Lainey l Result Performing Organization Address City/[facility] Co de Phone Number [facility] [address] [place] [address] * (ABNORMAL) High Sensitivity Troponin I (04/29/2025 7:31 PM EST) Troponin I High Sensitivity (pg/mL) <4(L) 4 - 60.3 pg/mL 04/29/2025 8:08 PM EST [facility] Comment: Troponin Result (pg/mL) *Interpretation [...] ORDERABLES Lainey l Result Performing Organization Address [facility]/ZIP Co de Phone Number [facility] [address] [place] [address] * D-dimer (04/29/2025 7:31 PM EST) D-Dimer, Quant (SJMS SJE) 140.69 <=500.00 ng/mL FEU 04/29/2025 8:13 PM EST [facility] Comment: A normal D-dimer result [...] MD LAB BLOOD ORDERABLES Lainey mckay Result [facility] [address] [place] [address] * hCG, quantitative, (04/29/2025 7:31 PM EST) Only the most recent of3 resultswithin the time period is included. HCG Serum Quant 1 mIU/mL 8:07 PM EST [facility] Comment: Results of the HCG [...] MD LAB BLOOD ORDERABLES Lainey l Result [facility] [address] [place] [address] * Lipase (04/29/2025 7:31 PM EST) Pathologist [facility] Lipase 40 16 - 77 U/L 04/29/2025 8:07 PM EST [facility] Blood Venipuncture / Unknown 04/29/2025 7:31 PM EST 04/29/2025 7:40 PM EST Zara Ross MD LAB BLOOD ORDERABLES Lainey l Result Performing Organization Address City/[facility]/ZIP Co de Phone Number [facility] [address] [place] [address] * (ABNORMAL) Comprehensive metabolic panel (04/29/2025 7:31 PM EST) Only the most recent of3 resultswithin the time period is included. Pathologist [facility] Sodium 140 136 - 145 meq/L 04/29/2025 8:07 PM EST [facility] Potassium 3.6 3.5 - 5.1 meq/L 04/29/2025 8:07 PM EST [facility] Chloride 102 98 - 107 meq/L 04/29/2025 8:07 PM EST [facility] CO2 29 21 - 32 meq/L 04/29/2025 8:07 PM EST [facility] Calcium 9.6 8.5 - 10.1 mg/dL 04/29/2025 8:07 PM EST [facility] Glucose 89 74 - 100 mg/dL 04/29/2025 8:07 PM EST [facility] BUN 12 7 - 18 mg/dL 04/29/2025 8:07 PM EST [facility] Creatinine 0.54(L) 0.55 - 1.10 mg/dL 04/29/2025 8:07 PM [facility] BUN/Creatinine 22 04/29/2025 8:07 PM [facility] Albumin 4.5 3.4 - 5.0 g/dL 04/29/2025 8:07 PM [facility] Alkaline Phosphatase 97 46 - 116 U/L 04/29/2025 8:07 PM [facility] ALT 12 12 - 78 U/L 04/29/2025 8:07 PM [facility] AST 12(L) 15 - 37 U/L 04/29/2025 8:07 PM [facility] Total Bilirubin 0.3 0.2 - 1.0 mg/dL 04/29/2025 8:07 PM [facility] Protein, Total 8.1 6.4 - 8.2 gm/dL 04/29/2025 8:07 PM [facility] Anion Gap 13 11 - 04/29/2025 8:07 PM [facility] A/G Ratio 1.3 04/29/2025 8:07 PM [facility] Globulin 3.6 g/dL 04/29/2025 8:07 PM [facility] Osmolality Calc 278.6 mOsm/kg 8:07 PM [facility] eGFR (mL/min/1.73m2) >60 >=60 mL/min/1.7 3m2 04/29/2025 8:07 PM [facility] Comment:ESTIMATED GFR IS NOT ACCURATE CREATININE CLEARANCE IN PREDICTING GLOMERULAR FILTRATION RATE. ESTIMATED GFR IS NOT APPLICABLE FOR DIALYSIS PATIENTS. Blood Venipuncture / Unknown 04/29/2025 7:31 PM EST 04/29/2025 7:40 PM EST us Zara Ross MD LAB BLOOD ORDERABLES Lainey mckay Result [facility] [address] [place] [address] * US OB transvaginal (04/11/2025 2:29 AM [...] sac. IMPRESSION: Authenticated and Farzad Stiles MD [facility] ORDERABLES Edited Result - Final * (ABNORMAL) Urinalysis w/Microscopic (04/05/2025 11:04 PM EST) Color, UA Yellow 04/05/2025 11:43 PM EST [facility] Clarity, UA Clear 04/05/2025 11:43 PM EST [facility] Specific [place], UA 1.025 1.002 - 1.030 04/05/2025 11:43 PM EST [facility] pH, UA 6.0 5.0 - 9.0 04/05/2025 11:43 PM EST [facility] Leukocytes, UA Negative Negative 04/05/2025 11:43 PM EST [facility] Nitrite, UA Negative Negative 04/05/2025 11:43 PM EST [facility] Protein, UA 1+(A) Negative 04/05/2025 11:43 PM EST [facility] Glucose, UA Negative Negative 04/05/2025 11:43 PM EST [facility] Ketones, UA Trace(A) Negative 04/05/2025 11:43 PM EST [facility] Urobilinogen, UA 0.2 mg/dL Normal 04/05/2025 11:43 PM EST [facility] Bilirubin, UA Negative Negative 04/05/2025 11:43 PM EST [facility] Blood, UA 3+(A) Negative 04/05/2025 11:43 PM EST [facility] RBC, UA 5-10(A) None Seen, Rare /HPF 04/05/2025 11:43 PM [facility] WBC, UA 0-5 None Seen, Occasional , 0-5 /HPF 04/05/2025 11:43 PM EST [facility] Bacteria, UA 2+(A) None Seen 04/05/2025 11:43 PM EST [facility] Mucus 1+(A) Trace 04/05/2025 11:43 PM EST [facility] SQUAMOUS EPITHELIAL 0-5(A) None Seen, Rare /HPF 04/05/2025 11:43 PM EST [facility] Ca Oxalate [place], UA 2+(A) (none) 04/05/2025 11:43 PM EST [facility] Specimen Source Urine, Clean Catch 04/05/2025 11:43 PM EST [facility] Urine URINE SPECIMEN COLLECTION, CLEAN CATCH / Unknown 04/05/2025 11:04 PM EST 04/05/2025 11:04 PM EST us Keke Gar MD URINE ORDERABLES Final Re sult [facility] [address] [id number] [phone] from Last 3 Months Insurance [facility] PLAN [facility] Care Teams Industrial Equipment Mechanic Relationship Specialty Start Date End Date Sarika Moyer, METAL FABRICATOR APPRENTICE [address] [place] [address] PCP - General Nurse Practitioner 04/05/25
--- OUTSIDE RECORDS SUMMARY | 2025-05-01 11:27 | XMS_ITS | Encounter Summary ---
Author Organization [employer] ([place], [place], [place], [place], [place]) Address [address] [place] [address] Care Team Providers Care Blood Bank Business Manager Name Role Phone Sarika Moyer SEAL MIXING OPERATOR Primary Care Provider + Encounter Details [...] on filedocumented in this encounter Care Teams Blood Bank Business Manager Relationship Specialty Start Date End Date Sarika Moyer APRN [address] [place] [address] PCP - General Nurse Practitioner 04/05/25 documented as of this encounter
--- OUTSIDE RECORDS SUMMARY | 2025-05-01 11:27 | XMS_ITS | Encounter Summary ---
Author Organization Healthcare Address [address] [id number] Care Team Providers Care Junior Designer Name Role Phone Sarika Moyer MANUFACTURED BUILDINGS SUPERVISOR Primary Care Provider + Encounter Details Date [...] on filedocumented in this encounter Care Teams Junior Designer Relationship Specialty Start Date End Date Sarika Moyer, MANUFACTURED BUILDINGS SUPERVISOR [address] [place] [address] PCP - General 10/14/20 documented as of this encounter
--- OUTSIDE RECORDS SUMMARY | 2025-05-01 11:27 | XMS_ITS | Encounter Summary ---
Author Organization [employer] ([place], [place], [place], [place], [place]) Address [address] [place] [address] Care Team Providers Care Heat Treating Furnace Tender Name Role Phone Sarika Moyer LANDSCAPE ACCOUNT MANAGER Primary Care Provider + Encounter Details Date [...] on filedocumented in this encounter Care Teams Heat Treating Furnace Tender Relationship Specialty Start Date End Date Sarika Moyer APRN [address] [place] [address] PCP - General Nurse Practitioner 04/05/25 documented as of this encounter
--- OUTSIDE RECORDS SUMMARY | 2025-05-01 11:27 | XMS_ITS | Encounter Summary ---
Author Organization [employer] ([place], [place], [place], [place], [place]) Address [address] [place] [address] Care Team Providers Care Supervisor Body Assembly Name Role Phone Sarika Moyer MAINTENANCE ASSOCIATE Primary Care Provider + Encounter Details Date [...] on filedocumented in this encounter Care Teams Supervisor Body Assembly Relationship Specialty Start Date End Date Sarika Moyer APRN [address] [place] [address] PCP - General Nurse Practitioner 04/05/25 documented as of this encounter
--- OUTSIDE RECORDS SUMMARY | 2025-05-01 11:27 | XMS_ITS | Encounter Summary ---
Author Organization Healthcare Address [address] [place] [address] Care Team Providers Care Sausage Machine Operator Name Role Phone Sarika Moyer GIZZARD PULLER Primary Care Provider + Encounter Details Date Type Department Care Team ([facility] st Contact Info) Description 03/17/2025 Telephone Obstetrics & Gynecology [address] [place] [address] Chiki Cardenas MD [address] [place] [address] Social History Tobacco Use Types [...] on filedocumented in this encounter Care Teams Sausage Machine Operator Relationship Specialty Start Date End Date Sarika Moyer APRN [address] [place] [address] PCP - General 10/14/20 documented as of this encounter
--- OUTSIDE RECORDS SUMMARY | 2025-05-01 11:27 | XMS_ITS | Referral Summary ---
Author Organization [employer] ([place], [place], [place], [place], [place]) Address [address] [place] [address] Care Team Providers Care Metal Finish Inspector Name Role Phone Sarika Moyer DEVOPS ENGINEER Primary Care Provider + Encounters Date Type Department Care Team Description 04/29/2025 Travel 04/29/2025 6:54 PM EST - 04/29/2025 10:26 PM EST Emergency [facility] Emergency Department [address] [place] [address] Zara Ross MD Periumbilical abdominal pain (Primary Dx) Discharge Disposition: Home or Self Care 04/18/2025 Travel 04/18/2025 7:23 PM EST - 04/18/2025 9:25 PM EST Emergency [facility] Emergency Department [address] [place] [address] Toy Egan MD Vaginal bleeding (Primary Dx) Discharge Disposition: Home or Self Care 04/10/2025 11:39 PM EST - 04/11/2025 5:09 AM EST Emergency [facility] Emergency Department [address] [place], [place] [phone] aFrzad Stiles MD Ectopic (Primary Dx); Hypokalemia Discharge Disposition: Home or Self Care 04/10/2025 Travel 04/05/2025 10:43 PM EST - 04/06/2025 2:31 AM EST Emergency [facility] Emergency Department [address] [place], [place] [phone] Keke Gar MD Ectopic (Primary Dx) Discharge [...] 04/29/2025 7:00 PM EST Plan of Treatment Not on [...] UA Light Yellow 04/29/2025 7:54 PM EST [facility] Clarity, UA Turbid 04/29/2025 7:54 PM EST [facility] Specific [place], UA 1.020 1.002 - 1.030 04/29/2025 7:54 PM EST [facility] pH, UA 7.0 5.0 - 9.0 04/29/2025 7:54 PM EST [facility] Leukocytes, UA Negative Negative 04/29/2025 7:54 PM EST [facility] Nitrite, UA Negative Negative 04/29/2025 7:54 PM EST [facility] Protein, UA Trace(A) Negative 04/29/2025 7:54 PM EST [facility] Glucose, UA Negative Negative 04/29/2025 7:54 PM EST [facility] Ketones, UA Negative Negative 04/29/2025 7:54 PM EST [facility] Bilirubin, UA Negative Negative 04/29/2025 7:54 PM EST [facility] Blood, UA Negative Negative 04/29/2025 7:54 PM EST [facility] Urobilinogen, UA 0.2 mg/dL Normal 04/29/2025 7:54 PM EST [facility] Specimen Source Urine, Clean Catch 04/29/2025 7:54 PM EST [facility] Urine URINE SPECIMEN COLLECTION, CLEAN CATCH / Unknown 04/29/2025 7:34 PM EST 04/29/2025 7:40 PM EST Zara Ross MD URINE ORDERABLES Final Re sult [facility] [address] [place] [address] * (ABNORMAL) Urinalysis Microscopic Only (04/29/2025 7:34 PM EST) WBC, UA Occasional None Seen, Occasional , 0-5 /HPF 04/29/2025 7:55 PM [facility] RBC, UA None Seen None Seen, Rare /HPF 04/29/2025 7:55 PM [facility] Bacteria, UA 2+(A) None Seen 04/29/2025 7:55 PM [facility] Amorphous Crystals 2+(A) None Seen, Trace 04/29/2025 7:55 PM EST [facility] SQUAMOUS EPITHELIAL Occasional(A) None Seen, Rare /HPF 04/29/2025 7:55 PM [facility] Urine URINE SPECIMEN COLLECTION, CLEAN CATCH / Unknown 04/29/2025 7:34 PM EST 04/29/2025 7:40 PM EST us Zara Ross MD URINE ORDERABLES Final Re sult [facility] [address] [id number], [facility] [phone] * (ABNORMAL) CBC with Auto Diff (04/29/2025 7:31 PM EST) Only the most recent of3 resultswithin the time period is included. WBC 9.4 4.8 - 10.8 K/ L 04/29/2025 7:44 PM EST [facility] RBC 4.73 3.50 - 5.20 M/ L 04/29/2025 7:44 PM EST [facility] Hemoglobin 13.7 11.7 - 15.8 GM/DL 04/29/2025 7:44 PM [facility] Hematocrit 41.2 35.0 - 47.0 % 04/29/2025 7:44 PM EST [facility] MCV 87 81 - 101 fL 04/29/2025 7:44 PM EST [facility] MCH 29.0 27.0 - 34.0 pg 04/29/2025 7:44 PM EST [facility] MCHC 33.3 32.0 - 36.0 GM/DL 04/29/2025 7:44 PM EST [facility] RDW 12.9 11.5 - 14.5 % 04/29/2025 7:44 PM [facility] Platelets 501(H) 150 - 400 K/CU MM 04/29/2025 7:44 PM EST [facility] MPV 9.1(L) 9.4 - 12.4 fL 04/29/2025 7:44 PM [facility] Nucleated Red Blood Cell 0.0 0 - 0.2 % 04/29/2025 7:44 PM [facility] % Neutros 64 37 - 80 % 04/29/2025 7:44 PM EST [facility] % Lymphs 28 10 - 50 % 04/29/2025 7:44 PM [facility] % Monos 7 5 - 13 % 04/29/2025 7:44 PM EST [facility] % Eos 0.5 0.0 - 7.0 % 04/29/2025 7:44 PM EST [facility] % Baso 0 0 - 3 % 04/29/2025 7:44 PM [facility] NRBC Absolute <0.01 0 - 0.012 K/ul 04/29/2025 7:44 PM EST [facility] # Neutros 6.04 2.00 - 6.90 K/ L 04/29/2025 7:44 PM EST [facility] # Lymphs 2.60 0.60 - 3.40 K/ L 04/29/2025 7:44 PM [facility] # Monos 0.69 0.00 - 0.90 K/ L 04/29/2025 7:44 PM EST [facility] # Eos 0.05 0.00 - 0.70 K/ L 04/29/2025 7:44 PM EST [facility] # Baso 0.04 0.00 - 0.20 K/ L 04/29/2025 7:44 PM EST [facility] % Imm Grans 0.10 % 04/29/2025 7:44 PM [facility] # IG 0.01(H) 0.00 - 0.00 K/uL 04/29/2025 7:44 PM [facility] Blood Venipuncture / Unknown 04/29/2025 7:31 PM EST 04/29/2025 7:40 PM EST Narrative [facility] - 04/29/2025 7:44 PM EST [...] Lainey l Result [facility] [address] [place] [address] * (ABNORMAL) High Sensitivity Troponin I (04/29/2025 7:31 PM EST) Troponin I High Sensitivity (pg/mL) <4(L) 4 - 60.3 pg/mL 04/29/2025 8:08 PM EST [facility] Comment: Troponin Result (pg/mL) *Interpretation [...] Lainey l Result [facility] [address] [place] [address] * D-dimer (04/29/2025 7:31 PM EST) D-Dimer, Quant ([facility]) 140.69 <=500.00 ng/mL FEU 04/29/2025 8:13 PM EST [facility] Comment: A normal D-dimer result [...] ORDERABLES Lainey l Result Performing Organization Address City/[facility]/ZIP Co de Phone Number [facility] [address] [place] [address] * hCG, quantitative, (04/29/2025 7:31 PM EST) Only the most recent of3 resultswithin the time period is included. HCG Serum Quant 1 mIU/mL 8:07 PM EST [facility] Comment: Results of the HCG [...] Lainey l Result [facility] [address] [place] [address] * Lipase (04/29/2025 7:31 PM EST) Lipase 40 16 - 77 U/L 04/29/2025 8:07 PM EST [facility] Blood Venipuncture / Unknown 04/29/2025 7:31 PM EST 04/29/2025 7:40 PM EST us Zara Ross MD LAB BLOOD ORDERABLES Lainey nely Result [facility] [address] [place], [place] [id number], [facility] [phone] * (ABNORMAL) Comprehensive metabolic panel (04/29/2025 7:31 PM EST) Only the most recent of3 resultswithin the time period is included. Sodium 140 136 - 145 meq/L 04/29/2025 8:07 PM EST [facility] Potassium 3.6 3.5 - 5.1 meq/L 04/29/2025 8:07 PM [facility] Chloride 102 98 - 107 meq/L 04/29/2025 8:07 PM [facility] CO2 29 21 - 32 meq/L 04/29/2025 8:07 PM [facility] Calcium 9.6 8.5 - 10.1 mg/dL 04/29/2025 8:07 PM EST [facility] Glucose 89 74 - 100 mg/dL 04/29/2025 8:07 PM [facility] BUN 12 7 - 18 mg/dL 04/29/2025 8:07 PM [facility] Creatinine 0.54(L) 0.55 - 1.10 mg/dL 04/29/2025 8:07 PM [facility] BUN/Creatinine 22 04/29/2025 8:07 PM [facility] Albumin 4.5 3.4 - 5.0 g/dL 04/29/2025 8:07 PM [facility] Alkaline Phosphatase 97 46 - 116 U/L 04/29/2025 8:07 PM [facility] ALT 12 12 - 78 U/L 04/29/2025 8:07 PM [facility] AST 12(L) 15 - 37 U/L 04/29/2025 8:07 PM [facility] Total Bilirubin 0.3 0.2 - 1.0 mg/dL 04/29/2025 8:07 PM EST [facility] Protein, Total 8.1 6.4 - 8.2 gm/dL 04/29/2025 8:07 PM EST [facility] Anion Gap 13 11 - 22 04/29/2025 8:07 PM EST [facility] A/G Ratio 1.3 04/29/2025 8:07 PM EST [facility] Globulin 3.6 g/dL 04/29/2025 8:07 PM EST [facility] Osmolality Calc 278.6 mOsm/kg 8:07 PM [facility] eGFR (mL/min/1.73m2) >60 >=60 mL/min/1.7 3m2 04/29/2025 8:07 PM EST [facility] Comment:ESTIMATED GFR IS NOT ACCURATE CREATININE CLEARANCE IN PREDICTING GLOMERULAR FILTRATION RATE. ESTIMATED GFR IS NOT APPLICABLE FOR DIALYSIS PATIENTS. Blood Venipuncture / Unknown 04/29/2025 7:31 PM EST 04/29/2025 7:40 PM EST us Zara Ross MD LAB BLOOD ORDERABLES Lainey mckay Result [facility] [address] [place] [address] * US OB transvaginal (04/11/2025 2:29 AM [...] IMPRESSION: Authenticated and us Farzad Stiles MD [facility] US ORDERABLES Edited Result - Final * (ABNORMAL) Urinalysis w/Microscopic (04/05/2025 11:04 PM EST) Color, UA Yellow 04/05/2025 11:43 PM [facility] Clarity, UA Clear 04/05/2025 11:43 PM [facility] Specific [place], UA 1.025 1.002 - 1.030 04/05/2025 11:43 PM [facility] pH, UA 6.0 5.0 - 9.0 04/05/2025 11:43 PM [facility] Leukocytes, UA Negative Negative 04/05/2025 11:43 PM [facility] Nitrite, UA Negative Negative 04/05/2025 11:43 PM [facility] Protein, UA 1+(A) Negative 04/05/2025 11:43 PM [facility] Glucose, UA Negative Negative 04/05/2025 11:43 PM [facility] Ketones, UA Trace(A) Negative 04/05/2025 11:43 PM [facility] Urobilinogen, UA 0.2 mg/dL Normal 04/05/2025 11:43 PM [facility] Bilirubin, UA Negative Negative 04/05/2025 11:43 PM [facility] Blood, UA 3+(A) Negative 04/05/2025 11:43 PM [facility] RBC, UA 5-10(A) None Seen, Rare /HPF 04/05/2025 11:43 PM EST [facility] WBC, UA 0-5 None Seen, Occasional , 0-5 /HPF 04/05/2025 11:43 PM EST [facility] Bacteria, UA 2+(A) None Seen 04/05/2025 11:43 PM EST [facility] Mucus 1+(A) Trace 04/05/2025 11:43 PM EST [facility] SQUAMOUS EPITHELIAL 0-5(A) None Seen, Rare /HPF 04/05/2025 11:43 PM EST [facility] Ca Oxalate [place], UA 2+(A) (none) 04/05/2025 11:43 PM EST [facility] Specimen Source Urine, Clean Catch 04/05/2025 11:43 PM EST [facility] Urine URINE SPECIMEN COLLECTION, CLEAN CATCH / Unknown 04/05/2025 11:04 PM EST 04/05/2025 11:04 PM EST us Keke Gar MD URINE ORDERABLES Final Re sult [facility] [address] [place] [address], [facility] [phone] from Last 3 Months Insurance [facility] Care Teams Metal Finish Inspector Relationship Specialty Start Date End Date Sarika Moyer, DEVOPS ENGINEER [address] [place] [id number] PCP - General Nurse Practitioner 04/05/25
--- OUTSIDE RECORDS SUMMARY | 2025-05-01 11:28 | XMS_ITS | Encounter Summary ---
Author Organization [employer] ([place], [place], [place], [place], [place]) Address [address] [place] [address] Care Team Providers Care General Medical Practitioner Name Role Phone Sarika Moyer V BELT FINISHER Primary Care Provider + Encounter Details Date Type Department Care Team (Latest Contact Info) Description 04/29/2025 Travel Social History Tobacco Use Types Packs/Day [...] on filedocumented in this encounter Care Teams General Medical Practitioner Relationship Specialty Start Date End Date Sarika Moyer APRN [address] [place] [address] PCP - General Nurse Practitioner 04/05/25 documented as of this encounter
--- OUTSIDE RECORDS SUMMARY | 2025-05-01 11:28 | XMS_ITS | Clinical Summary ---
Author Organization Healthcare Address [address] [id number] Care Team Providers Care Glass Scullion Name Role Phone Sarika Moyer INSURANCE CLAIMS ASSISTANT Primary Care Provider + Allergies Active Allergy Reactions Criticality Noted Date Comments Escitalopram Anaphylaxis High 03/27/2025 Robitussin Dm Max Day-Night Anxiety Low 03/27/20 Medications No known medications Active Problems Comments Yes No known active problems Encounters Date Type Department Care Team Description 03/27/2025 8:35 PM EDT - 03/28/2025 1:22 AM EDT Emergency [facility] Emergency Department [address] [place] [phone] Rose Cortes MD of unknown anatomic location (Primary Dx) Discharge Disposition: Home or Self Care 03/27/2025 Travel 03/17/2025 Telephone Obstetrics & Gynecology [address] [place] [phone] Chiki Cardenas MD from Last 3 [...] 10/19/2024 10/19/2014, 05/21/2006, 08/26/2003, Additional history exists [id number] Vaccine ( - season) 2025 UKY-Influenza Vaccine [...] Reactive Non Reactive 03/27/2025 9:26 PM EDT [facility] Comment:Screening for HIV 1 & 2 antibodies, and P24 antigen is NONREACTIVE. No confirmatory testing is required. Blood Venous blood specimen / Unknown Venipuncture / Unknown 03/27/2025 8:31 PM EDT 03/27/2025 8:44 PM EDT Rose Cortes MD LAB BLOOD ORDERABLES Final Resu lt [facility] [address] [place] [address] * Hepatitis C Antibody - ED (03/27/2025 8:31 PM EDT) Hepatitis C Antibody Negative Negative 03/27/2025 9:26 PM EDT [facility] Blood Venous blood specimen / Unknown Venipuncture / Unknown 03/27/2025 8:31 PM EDT 03/27/2025 8:44 PM EDT us Rose Cortes MD LAB BLOOD ORDERABLES Final Resu lt [facility] [address] [place] [address] * (ABNORMAL) CBC w/diff (03/27/2025 8:31 PM EDT) Pathologist [facility] WBC Count 11.76(H) 3.70 - 10.30 10*3/uL LAB HEMATOLOGY METHOD 03/27/2025 8:44 PM EDT [facility] RBC Count 4.82 3.90 - 5.20 10*6/uL LAB HEMATOLOGY METHOD 03/27/2025 8:44 PM EDT [facility] HGB 14.2 11.2 - 15.7 g/dL LAB HEMATOLOGY METHOD 03/27/2025 8:44 PM EDT [facility] HCT 39.9 34.0 - 45.0 % LAB HEMATOLOGY METHOD 03/27/2025 8:44 PM EDT [facility] Platelet Count 523(H) 155 - 369 10*3/uL LAB HEMATOLOGY METHOD 03/27/2025 8:44 PM EDT [facility] MCV 83 79 - 98 fL LAB HEMATOLOGY METHOD 03/27/2025 8:44 PM EDT [facility] MCH 29.5 26.0 - 32.0 pg LAB HEMATOLOGY METHOD 03/27/2025 8:44 PM EDT [facility] MCHC 35.6(H) 30.7 - 35.5 g/dL LAB HEMATOLOGY METHOD 03/27/2025 8:44 PM EDT [facility] RDW 12.2 11.5 - 14.5 % LAB HEMATOLOGY METHOD 03/27/2025 8:44 PM EDT [facility] MPV 9.3 8.8 - 12.5 fL LAB HEMATOLOGY METHOD 03/27/2025 8:44 PM EDT [facility] nRBC 0.0 <=0.0 per 100 WBCs LAB HEMATOLOGY METHOD 03/27/2025 8:44 PM EDT [facility] Differential Type Automated LAB HEMATOLOGY METHOD 03/27/2025 8:44 PM EDT [facility] Neutrophils % 71 % LAB HEMATOLOGY METHOD 03/27/2025 8:44 PM EDT [facility] Lymphocytes % 25 % LAB HEMATOLOGY METHOD 03/27/2025 8:44 PM EDT [facility] Monocytes % 4 % LAB HEMATOLOGY METHOD 03/27/2025 8:44 PM EDT [facility] Eosinophils % 0 % LAB HEMATOLOGY METHOD 03/27/2025 8:44 PM EDT [facility] Basophils % 0 % LAB HEMATOLOGY METHOD 03/27/2025 8:44 PM EDT [facility] Immature Granulocytes % 0 % LAB HEMATOLOGY METHOD 03/27/2025 8:44 PM EDT [facility] Neutrophils Absolute 8.17(H) 1.60 - 6.10 10*3/uL LAB HEMATOLOGY METHOD 03/27/2025 8:44 PM EDT [facility] Lymphocytes Absolute 2.96 1.20 - 3.90 10*3/uL LAB HEMATOLOGY METHOD 03/27/2025 8:44 PM EDT [facility] Monocytes Absolute 0.52 0.30 - 0.90 10*3/uL LAB HEMATOLOGY METHOD 03/27/2025 8:44 PM EDT [facility] Eosinophils Absolute 0.03 0.00 - 0.50 10*3/uL LAB HEMATOLOGY METHOD 03/27/2025 8:44 PM EDT [facility] Basophils Absolute 0.05 0.00 - 0.10 10*3/uL LAB HEMATOLOGY METHOD 03/27/2025 8:44 PM EDT [facility] Immature Granulocytes Absolute 0.03 0.00 - 0.06 10*3/uL LAB HEMATOLOGY METHOD 03/27/2025 8:44 PM EDT [facility] Blood Venous blood specimen / Unknown Venipuncture / Unknown 03/27/2025 8:31 PM EDT 03/27/2025 8:41 PM EDT Narrative [facility] - 03/27/2025 8:44 PM EDT Therapeutic decision making should be based on absolute values, rather than percentages. Rose Cortes MD LAB BLOOD ORDERABLES Final Resu lt Performing Organization Address City/[facility]/ZIP Co de Phone Number [facility] [address] [place] [address] * Type and screen (03/27/2025 8:31 PM [...] TEST ORDERABLES Final Result Performing Organization Address [facility] de Phone Number BLOOD BANK [address] [place] [address] * (ABNORMAL) hCG, quantitative, (03/27/2025 8:31 PM EDT) hCG, Total Beta 626.2(H) <5 mIU/mL 03/27/2025 9:22 PM EDT [facility] Blood Venous blood specimen / Unknown Venipuncture / Unknown 03/27/2025 8:31 PM EDT 03/27/2025 8:41 PM EDT Narrative [facility] - 03/27/2025 9:22 PM EDT [...] MD LAB BLOOD ORDERABLES Final Resu lt [facility] [address] [place] [address] * (ABNORMAL) CMP (03/27/2025 8:31 PM EDT) Glucose, Plasma 96 74 - 99 mg/dL 03/27/2025 9:22 PM EDT [facility] BUN, Plasma 11 7 - 21 mg/dL 03/27/2025 9:22 PM EDT [facility] Creatinine, Plasma 0.48(L) 0.60 - 1.10 mg/dL 03/27/2025 9:22 PM EDT [facility] BUN/Creatinine Ratio 23 03/27/2025 9:22 PM EDT [facility] Sodium, Plasma 136 136 - 145 mmol/L 03/27/2025 9:22 PM EDT [facility] Potassium, Plasma 3.1(L) 3.6 - 4.9 mmol/L 03/27/2025 9:22 PM EDT [facility] Chloride, Plasma 100 97 - 107 mmol/L 03/27/2025 9:22 PM EDT [facility] CO2, Plasma 20(L) 22 - 29 mmol/L 03/27/2025 9:22 PM EDT [facility] Anion Gap 16 6 - 16 mmol/L 03/27/2025 9:22 PM EDT [facility] Total Calcium, Plasma 9.8 8.9 - 10.2 mg/dL 03/27/2025 9:22 PM EDT [facility] Total Protein 7.7 6.3 - 7.9 g/dL 03/27/2025 9:22 PM EDT [facility] Albumin, Plasma 4.9 3.5 - 5.2 g/dL 03/27/2025 9:22 PM EDT [facility] AST, Plasma 17 10 - 35 U/L 03/27/2025 9:22 PM EDT [facility] ALT, Plasma 8(L) 10 - 35 U/L 03/27/2025 9:22 PM EDT [facility] Alkaline Phosphatase, Plasma 102 35 - 104 U/L 03/27/2025 9:22 PM EDT [facility] Total Bilirubin, Plasma 1.3(H) 0.2 - 1.1 mg/dL 03/27/2025 9:22 PM EDT [facility] eGFRcr 137.5 mL/min/1.7 3m*2 03/27/2025 9:22 PM EDT [facility] Comment:Reported eGFRcr in m L/min/1.73m2 is based the CKD-EPI 2020 equation that does not use a race coefficient. Blood Venous blood specimen / Unknown Venipuncture / Unknown 03/27/2025 8:31 PM EDT 03/27/2025 8:41 PM EDT us Rose Cortes MD LAB BLOOD ORDERABLES Final Resu lt [facility] [address] [place] [address] from Last 3 Months Insurance [facility] MEDICAID Care Teams Glass Scullion Relationship Specialty Start Date End Date Sarika Moyer APRN [address] [place] [id number] PCP - General 10/14/20
[2025-05-01 11:30] VITALS: BP 128/91; PULSE 82; O2SAT 100
--- NOTE | 2025-05-01 11:44 | ED_ITS ---
Discharge Plan Disposition Chief Complaint: PAIN Prescriptions Prescriptions: No Action fluoxetine 20 mg capsule 20 mg PO DAILY 30 Days Qty: 30 2RF Rx Instructions: take in AM cephalexin 500 mg capsule 500 mg PO Q6H 5 Days Qty: 20 0RF Referrals Follow up/Referrals: Sarika Moyer APRN [Primary Care Provider, Medical] - See instructions Activity Restrictions/Add. Instructions Additional Instructions/Restrictions: You previously had serial quantitative beta-hCG levels less than 5 which by definition is resolution of your ectopic no further concern for rupture exists. Given the fact also that you are yesterday in another emergency department with a negative CAT scan and labs and today with a benign exam on alternative explanation for your symptoms today is unlikely to be emergency. I recommend you keep your follow-up appoint with Dr. Lee as previously instructed and return with any significant worsening of your symptoms. Clinical Impressions Clinical Impression: Ectopic Print Language Print Language: Gambian Discharge ED Provider: Jemma De Oliveira General Adult HPI General Chief complaint: PAIN Stated complaint: pain in lower pelvic area Time Seen by Provider: 05/01/25 11:23 Mode of Arrival: Ambulatory Source of Information: Patient Description of Symptoms (Recalled from ER Triage Doc. by RN): lb presents for severe rib pain and severe ectopic side pain that she only rates as aggravating . she is here because she is tired of this ad doesnt want to be hurting . History of Present Illness HPI narrative: Patient is a 25-year-old who has had 15 emergency department visits for follow- up of an ectopic treated with methotrexate. Within the last several days she has had her beta-hCG that has been followed to undetectable levels on serial measurements. She went to the emergency department at [place] yesterday for pain in her abdomen that she was concerned about an ectopic rupture where she had a CAT scan labs done which she states were unremarkable. She states she has had intermittent discomfort and her grandfather was in the emergency department today so she decided to get checked out. Currently without any severe pain. Related Data Previous Rx's ?Medication ?Instructions ?Recorded cephalexin 500 mg capsule 500 mg PO Q6H 5 days #20 cap s 04/17/25 fluoxetine 20 mg capsule 20 mg PO DAILY 30 days #30 c aps 04/20/25 Allergies Allergy/AdvReac Type Severity Reaction Status Date / Time escitalopram (From Lexapro) Allergy Severe Anaphylaxis Verified 04/16/25 08:55 dextromethorphan Allergy Hyper Verified 04/16/25 08:55 activity guaifenesin (From Robitussin) Allergy hyper Verified 04/16/25 08:55 activity PFSH PFSH Disclaimer: The information contained in this section may have been updated after the patient was seen, as this information can be updated by other users. Medical History No significant medical problems Surgical History History of tonsillectomy and adenoidectomy H/O oral surgery Family History Other No significant family history Social History Smoking Status: Light tobacco smoker tobacco type: e-cigarettes alcohol intake: never current occupational status: employed Travel in the last 8 weeks?: None household members: spouse Have you lived/traveled outside US in past 30 days?: No Contact w/someone who lives/traveled outside US past 30 days?: No Exposure to someone with infectious disease in past 14 days?: No Do you have a fever (greater than 100.4 F or 38 C)?: No Have you tested positive for COVID-19?: No Exposed to someone with COVID-19 in past 14 days?: No Do you have a sore throat?: No Do you have a cough?: No Do you have any weakness?: No Do you have any diarrhea?: No Are you experiencing any unusual bleeding?: No Do you have any muscle aches/pain?: No Do you have any abdominal pain?: No Are you experiencing loss of taste or smell?: No Other Medical History Have you received the Pneumonia Vaccine: No ROS Obtained: Yes All systems reviewed & no additional complaints except as documented Physical Exam General General appearance: other (Extremely anxious) Respiratory Respiratory exam: Present normal lung sounds bilaterally Cardiovascular Cardiovascular exam: Present regular rate Abdominal Exam Abdominal exam: Present soft; Absent distention or tenderness Neurological Exam Neurological exam: Present alert and oriented X3 Medical Decision Making Medical Records Screening: Per USPSTF and CDC recommendations, given the prevalence of disease in our region, it is our hospital?s policy to screen for HIV and viral Hepatitis for all patients aged 18 and over and those with ongoing risk factors. Lucho Inquiry Pt receiving controlled substance: No Vital Signs: 05/01/25 11:19 05/01/25 11:24 05/01/25 11:30 Temperature 98.2 F Temperature Source Oral Pulse Rate 81 82 Pulse Rate [Right Radial] 74 Respiratory Rate 20 Blood Pressure 137/86 128/91 H Blood Pressure [Right Arm] 137/96 H Blood Pressure Mean [Right Arm] 109 Blood Pressure Source [Right Arm] Automatic Cuff Blood Pressure Position [Right Arm] Sitting 02 Sat by Pulse Oximetry 99 97 100 Oxygen Delivery Method Room Air Room Air Room Air Orders (Tests/Meds): ORDERS Category Date Time Status POCUS Point of Care (ER Only) Stat Exams 05/01/25 11:31 Ordered Medical Decision Narrative: 25-year-old with benign abdominal exam presents today with lower abdominal discomfort after emergency department visit yesterday with a normal CT scan and labs. She has had 15 visits for her ectopic follow-up and has had her quantitative beta-hCG has been followed and trended down to undetectable levels and by definition this is resolution of her ectopic . With her benign appearance also did a bedside ultrasound largely for therapeutic reasons without any evidence of free fluid no further emergency workup or evaluation is needed. She has not yet seen her [facility] [employer]IMARY doctor after resolution and I advised that she will follow-up to see Dr. Lee. With regards to alternative explanations for her symptoms with a negative workup yesterday and benign appearance today is unlikely that we will find anything emergently surgical this was explained to the patient and she agreed with this and was discharged in stable condition with return precautions emphasized. Procedures Miscellaneous Procedure Procedure Performed: Limited OB ultrasound Indication: Abdominal pain Identified structures: [-Uterus -Left adnexa -Right adnexa -Pouch of Gomez] Findings: No IUP no free fluid Right adnexa: No peripheral Left adnexa: No free Cul de sac: No free fluid Impression: No evidence of IUP or evidence of free fluid Images were to permanent archive The study was technically adequate [facility] Transabdominal: [id number] This study was performed by me, and I personally interpreted all images/videos. Based on my clinical judgement, these images were added and did not necessitate further imaging. Critical Care Critical Care Time Critical Care Time: No
[2025-05-01 11:46] VITALS: BP 128/91; PULSE 74; RESP 16; TEMP 36.9; O2SAT 97
== END 2025-05-01 11:51 | disposition home or self-care (01) ==
LOC: ER 11:26
PROVIDERS: Emergency Provider Student in an Organized Health Care Education/Training Program; PCP Nurse Practitioner Family
DX: R10.20 Pelvic and perineal pain unspecified side (principal); F41.1 Generalized anxiety disorder; Z87.59 Personal history of other complications of pregnancy, childbirth and the puerperium
CPT/HCPCS: 99283

== ENCOUNTER 2025-05-03 08:41 | Outpatient (CLI) | payer OTHER, SELFPAY ==
--- OUTSIDE RECORDS SUMMARY | 2025-03-27 19:35 | XMS_ITS | Encounter Summary ---
Author Organization Healthcare Address [address] [place] [address] Care Team Providers Care Shop Superintendent Name Role Phone Sarika Moyer ISAIAH Primary Care Provider + Reason for Visit * Reason Comments Pelvic Pain Encounter Details Date Type Department Care Team (Late st Contact Info) Description 03/27/2025 8:35 PM EDT - 03/28/2025 1:22 AM EDT Emergency [facility] Emergency Department [address] [place] [address] Rose Cortes MD [address] [place] [address] of unknown anatomic location (Primary Dx) Discharge [...] as able. Please increase your water intake. [place] use of warm and/or cold compresses. Primary [...] here is available to you via the [employer] Internet portal. Please make sure that you [...] 24 y.o. with PUL being followed at [facility] who presents for RLQ pain. Patient reports that this is her first . She was having her beta hCG trended for pregnancyof unknown location, with the trend showing an inappropriate rise. Per [facility] records reviewed by ED MICHAEL, on 03/25/25 beta hCG was 568, down from 701. At this time patient received a dose of IM methotrexate. Yesterday morning/afternoon, patient reports that she had increased right lower quadrant/pelvic pain with associated nausea. At [facility] yesterday, beta hCG was found [...] - Patient with PUL being followed at [facility] - Beta hCG trend shown to be inappropriately rising > 03/17: 258 > 03/19: 276 > 03/20: 370 > 03/21: 342 > 03/24: 701 > 03/25: 568 -- Dose of methotrexate 03/25 -- > 03/27: 543 - Pt with increased RLQ pain 03/27 prompting her to present first to [facility] where beta was noted to have decreased slightly from 03/25. TVUS not directly reviewed, however records indicatea 1.5 cm unknown structure was seen in the R adnexa. - Patient was discharged home from [facility], but due to persistent pain [...] with patient that her beta hCG at [facility] today was encouraging. Explained that [...] Dispo: stable for discharge home from a PRODUCTION POSTING CLERK standpoint. Thank you for including us in the care of this patient. This consult was staffed with Dr. Bowers. Please message on-call PRODUCTION POSTING CLERK resident via [employer] Secure Chat or page [phone] (M-F 6a-6p) or [phone] (nights/weekends) for questions or concerns regarding this patient's care. Ivon Marmolejo MD PGY3 Obstetrics and Gynecology [1] Past Medical History: Diagnosis Date Other specified health status No pertinent past medical history [2] Past Surgical History: Procedure Laterality Date DENTAL SURGERY N/A Dental surgery from [facility] TONSILLECTOMY N/A Tonsillectomy from [facility] [3] Family History Problem Relation Name Age [...] SOA, and urinary symptoms. Medical records from [facility] reviewed: 03/26/2025 -- HCG trends recorded (03/17 -- 258, 03/19--276. 03/20--370. 03/21--342. 03/24--701. 03/25--568.), documented a 1gm Methotrexate given IM on 03/25/2025. 03/27/2025 -- TVUS with1.5cm unknown structure in the right adenxa, 03/27 -- HCG 543. History provided by: Patient command post craftsman used: No Patient History Past Medical History[1] [...] does not include homicidal or suicidal ideation. [place] Coma Scale Score: 15 ED Course & [...] Abnormality Status --------- ------ ED HIV 1/2 Antibody/Anti...[[id number]] Normal Final result Please view results for [...] 11:57 PM MDM: Patient seen by the [facility] physician and followed-up by myself. In summary: NARRATIVE: Patient is a 24-year-old female who presents with complaints of diffuse right-sided abdominal discomfort. Has been seen multiple times at [facility] and had HCGs done. Has not had an appropriate doubling. Was given a dose of IM methotrexate a couple of days ago. Had an ult rasound done earlier today which did still document a 1.5 cm mass in the right adnexa and hCG in the mid 500s. Patient otherwise had a reassuring exam and H&H and was discharged for outpatient golf club weighter follow-up. Was offered some hydroxyzine at that time, but deferred. Patient presented to our ER for 2nd opinion of her own accord. H&H stable. HCG still in the 600range. Transvaginal ultrasound does not note a right adnexal mass at this time. Given unclear hCG trend and patient concern, golf club weighter was consulted. Patient signed out pending final golf club weighter recommendations. Clinical Impressions as of 03/28/2533 of [...] mg Oral Given Ivana Loredo PA-C EMR Dragon/District Manager Major Accounts Sales disclaimer: Much of this encounter note is an electronic oil and gas superintendent of spoken language to printed text. Electronic oil and gas superintendent of spoken language may permit erroneous, or [...] as able. Please increase your water intake. [place] use of warm and/or cold compresses. Primary [...] here is available to you via the [employer] Internet portal. Please make sure that you are registered for access to this. Disposition Discharge AVS (Slovak Snapshot) - Printed 03/28/2025 Follow-Ups Go to Sarika Moyer APRN; As needed Follow up with [facility] Obstetrics & Gynecology (Obstetrics and Gynecology) [...] Reactive Non Reactive 03/27/2025 9:26 PM EDT [facility] Comment:Screening for HIV 1 & 2 antibodies, and P24 antigen is NONREACTIVE. No confirmatory testing is required. Blood Venous blood specimen / Unknown Venipuncture / Unknown 03/27/2025 8:31 PM EDT 03/27/2025 8:44 PM EDT Result [facility] Rose Cortes MD LAB BLOOD ORDERABLES Final Resu lt [facility] [address] [place] [address] * Hepatitis C Antibody - ED (03/27/2025 8:31 PM EDT) Hepatitis C Antibody Negative Negative 03/27/2025 9:26 PM EDT [facility] Blood Venous blood specimen / Unknown Venipuncture / Unknown 03/27/2025 8:31 PM EDT 03/27/2025 8:44 PM EDT Result [facility] Rose Cortes MD LAB BLOOD ORDERABLES Final Resu lt [facility] [address] [place] [address] * Type and screen (03/27/2025 8:31 PM [...] TEST ORDERABLES Final Result Performing Organization Address [facility] de Phone Number BLOOD BANK [address] [place] [address], [place] * (ABNORMAL) hCG, quantitative, (03/27/2025 8:31 PM EDT) hCG, Total Beta 626.2(H) <5 mIU/mL 03/27/2025 9:22 PM EDT [facility] Blood Venous blood specimen / Unknown Venipuncture / Unknown 03/27/2025 8:31 PM EDT 03/27/2025 8:41 PM EDT Narrative [facility] - 03/27/2025 9:22 PM EDT [...] ORDERABLES Final Resu lt Performing Organization Address City/[facility]/ZIP Co de Phone Number [facility] [address] [place] [address] * (ABNORMAL) CBC w/diff (03/27/2025 8:31 PM EDT) WBC Count 11.76(H) 3.70 - 10.30 10*3/uL LAB HEMATOLOGY METHOD 03/27/2025 8:44 PM EDT [facility] RBC Count 4.82 3.90 - 5.20 10*6/uL LAB HEMATOLOGY METHOD 03/27/2025 8:44 PM EDT [facility] HGB 14.2 11.2 - 15.7 g/dL LAB HEMATOLOGY METHOD 03/27/2025 8:44 PM EDT [facility] HCT 39.9 34.0 - 45.0 % LAB HEMATOLOGY METHOD 03/27/2025 8:44 PM EDT [facility] Platelet Count 523(H) 155 - 369 10*3/uL LAB HEMATOLOGY METHOD 03/27/2025 8:44 PM EDT [facility] MCV 83 79 - 98 fL LAB HEMATOLOGY METHOD 03/27/2025 8:44 PM EDT [facility] MCH 29.5 26.0 - 32.0 pg LAB HEMATOLOGY METHOD 03/27/2025 8:44 PM EDT [facility] MCHC 35.6(H) 30.7 - 35.5 g/dL LAB HEMATOLOGY METHOD 03/27/2025 8:44 PM EDT [facility] RDW 12.2 11.5 - 14.5 % LAB HEMATOLOGY METHOD 03/27/2025 8:44 PM EDT [facility] MPV 9.3 8.8 - 12.5 fL LAB HEMATOLOGY METHOD 03/27/2025 8:44 PM EDT [facility] nRBC 0.0 <=0.0 per 100 WBCs LAB HEMATOLOGY METHOD 03/27/2025 8:44 PM EDT [facility] Differential Type Automated LAB HEMATOLOGY METHOD 03/27/2025 8:44 PM EDT [facility] Neutrophils % 71 % LAB HEMATOLOGY METHOD 03/27/2025 8:44 PM EDT [facility] Lymphocytes % 25 % LAB HEMATOLOGY METHOD 03/27/2025 8:44 PM EDT [facility] Monocytes % 4 % LAB HEMATOLOGY METHOD 03/27/2025 8:44 PM EDT [facility] Eosinophils % 0 % LAB HEMATOLOGY METHOD 03/27/2025 8:44 PM EDT [facility] Basophils % 0 % LAB HEMATOLOGY METHOD 03/27/2025 8:44 PM EDT [facility] Immature Granulocytes % 0 % LAB HEMATOLOGY METHOD 03/27/2025 8:44 PM EDT [facility] Neutrophils Absolute 8.17(H) 1.60 - 6.10 10*3/uL LAB HEMATOLOGY METHOD 03/27/2025 8:44 PM EDT [facility] Lymphocytes Absolute 2.96 1.20 - 3.90 10*3/uL LAB HEMATOLOGY METHOD 03/27/2025 8:44 PM EDT [facility] Monocytes Absolute 0.52 0.30 - 0.90 10*3/uL LAB HEMATOLOGY METHOD 03/27/2025 8:44 PM EDT [facility] Eosinophils Absolute 0.03 0.00 - 0.50 10*3/uL LAB HEMATOLOGY METHOD 03/27/2025 8:44 PM EDT [facility] Basophils Absolute 0.05 0.00 - 0.10 10*3/uL LAB HEMATOLOGY METHOD 03/27/2025 8:44 PM EDT [facility] Immature Granulocytes Absolute 0.03 0.00 - 0.06 10*3/uL LAB HEMATOLOGY METHOD 03/27/2025 8:44 PM EDT [facility] Blood Venous blood specimen / Unknown Venipuncture / Unknown 03/27/2025 8:31 PM EDT 03/27/2025 8:41 PM EDT Narrative [facility] - 03/27/2025 8:44 PM EDT Therapeutic decision making should be based on absolute values, rather than percentages. us Rose Cortes MD LAB BLOOD ORDERABLES Final Resu lt [facility] [address] [place] [address] * (ABNORMAL) CMP (03/27/2025 8:31 PM EDT) Glucose, Plasma 96 74 - 99 mg/dL 03/27/2025 9:22 PM EDT [facility] BUN, Plasma 11 7 - 21 mg/dL 03/27/2025 9:22 PM EDT [facility] Creatinine, Plasma 0.48(L) 0.60 - 1.10 mg/dL 03/27/2025 9:22 PM EDT [facility] BUN/Creatinine Ratio 23 03/27/2025 9:22 PM EDT [facility] Sodium, Plasma 136 136 - 145 mmol/L 03/27/2025 9:22 PM EDT [facility] Potassium, Plasma 3.1(L) 3.6 - 4.9 mmol/L 03/27/2025 9:22 PM EDT [facility] Chloride, Plasma 100 97 - 107 mmol/L 03/27/2025 9:22 PM EDT [facility] CO2, Plasma 20(L) 22 - 29 mmol/L 03/27/2025 9:22 PM EDT [facility] Anion Gap 16 6 - 16 mmol/L 03/27/2025 9:22 PM EDT [facility] Total Calcium, Plasma 9.8 8.9 - 10.2 mg/dL 03/27/2025 9:22 PM EDT [facility] Total Protein 7.7 6.3 - 7.9 g/dL 03/27/2025 9:22 PM EDT [facility] Albumin, Plasma 4.9 3.5 - 5.2 g/dL 03/27/2025 9:22 PM EDT [facility] AST, Plasma 17 10 - 35 U/L 03/27/2025 9:22 PM EDT [facility] ALT, Plasma 8(L) 10 - 35 U/L 03/27/2025 9:22 PM EDT [facility] Alkaline Phosphatase, Plasma 102 35 - 104 U/L 03/27/2025 9:22 PM EDT [facility] Total Bilirubin, Plasma 1.3(H) 0.2 - 1.1 mg/dL 03/27/2025 9:22 PM EDT [facility] eGFRcr 137.5 mL/min/1.7 3m*2 03/27/2025 9:22 PM EDT [facility] Comment:Reported eGFRcr in m L/min/1.73m2 is based the CKD-EPI 2020 equation that does not use a race coefficient. Blood Venous blood specimen / Unknown Venipuncture / Unknown 03/27/2025 8:31 PM EDT 03/27/2025 8:41 PM EDT us Rose Cortes MD LAB BLOOD ORDERABLES Final Resu lt [facility] [address] [place] [address] documented in this encounter Visit Diagnoses Diagnosis [...] Foss) documented in this encounter Care Teams Shop Superintendent Relationship Specialty Start Date End Date Sarika Moyer APRN [address] [place] [id number] PCP - General 10/14/20 documented as of this encounter
--- OUTSIDE RECORDS SUMMARY | 2025-04-05 22:43 | XMS_ITS | Encounter Summary ---
Author Organization [employer] ([place], [place], [place], [place], [place]) Address [address] [place] [address] Care Team Providers Care Sales Forecast Analyst Name Role Phone Sarika Moyer APRN Primary [...] EST - 04/06/2025 2:31 AM EST Emergency [facility] Emergency Department [address] [place] [phone] Keke Gar MD [address] [place] [address] Ectopic (Primary Dx) Discharge Disposition: Home or [...] be sent through Care Everywhere. 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 IMPRESSION: Authenticated and Keke Gar MD [facility] US ORDERABLES Edited Result - Final * (ABNORMAL) Comprehensive metabolic panel (04/05/2025 11:30 PM EST) Sodium 140 136 - 145 meq/L 04/06/2025 12:03 AM [facility] Potassium 3.3(L) 3.5 - 5.1 meq/L 04/06/2025 12:03 AM [facility] Chloride 102 98 - 107 meq/L 04/06/2025 12:03 AM [facility] CO2 25 21 - 32 meq/L 04/06/2025 12:03 AM [facility] Calcium 9.5 8.5 - 10.1 mg/dL 04/06/2025 12:03 AM [facility] Glucose 106(H) 74 - 100 mg/dL 04/06/2025 12:03 AM [facility] BUN 12 7 - 18 mg/dL 04/06/2025 12:03 AM [facility] Creatinine 0.60 0.55 - 1.10 mg/dL 04/06/2025 12:03 AM [facility] BUN/Creatinine 20 04/06/2025 12:03 AM [facility] Albumin 4.5 3.4 - 5.0 g/dL 04/06/2025 12:03 AM [facility] Alkaline Phosphatase 91 46 - 116 U/L 04/06/2025 12:03 AM [facility] ALT 10(L) 12 - 78 U/L 04/06/2025 12:03 AM [facility] AST 14(L) 15 - 37 U/L 04/06/2025 12:03 AM [facility] Total Bilirubin 0.3 0.2 - 1.0 mg/dL 04/06/2025 12:03 AM [facility] Protein, Total 8.0 6.4 - 8.2 gm/dL 04/06/2025 12:03 AM [facility] Anion Gap 16 11 - 22 04/06/2025 12:03 AM [facility] A/G Ratio 1.3 04/06/2025 12:03 AM [facility] Globulin 3.5 g/dL 04/06/2025 12:03 AM [facility] Osmolality Calc 279.6 mOsm/kg 12:03 AM [facility] eGFR (mL/min/1.73m2) >60 >=60 mL/min/1.7 3m2 04/06/2025 12:03 AM [facility] Comment:ESTIMATED GFR IS NOT ACCURATE CREATININE CLEARANCE IN PREDICTING GLOMERULAR FILTRATION RATE. ESTIMATED GFR IS NOT APPLICABLE FOR DIALYSIS PATIENTS. Blood Venipuncture / Unknown 04/05/2025 11:30 PM EST 04/05/2025 11:41 PM EST us Keke Gar MD LAB BLOOD ORDERABLES Lainey mckay Result [facility] [address] [id number] [phone] * (ABNORMAL) CBC with Auto Diff (04/05/2025 11:30 PM EST) WBC 9.8 4.8 - 10.8 K/ L 04/05/2025 11:45 PM [facility] RBC 4.72 3.50 - 5.20 M/ L 04/05/2025 11:45 PM [facility] Hemoglobin 13.8 11.7 - 15.8 GM/DL 04/05/2025 11:45 PM [facility] Hematocrit 40.9 35.0 - 47.0 % 04/05/2025 11:45 PM [facility] MCV 87 81 - 101 fL 04/05/2025 11:45 PM [facility] MCH 29.2 27.0 - 34.0 pg 04/05/2025 11:45 PM [facility] MCHC 33.7 32.0 - 36.0 GM/DL 04/05/2025 11:45 PM [facility] RDW 13.1 11.5 - 14.5 % 04/05/2025 11:45 PM [facility] Platelets 511(H) 150 - 400 K/CU MM 04/05/2025 11:45 PM [facility] MPV 9.2(L) 9.4 - 12.4 fL 04/05/2025 11:45 PM [facility] Nucleated Red Blood Cell 0.0 0 - 0.2 % 04/05/2025 11:45 PM [facility] % Neutros 65 37 - 80 % 04/05/2025 11:45 PM [facility] % Lymphs 27 10 - 50 % 04/05/2025 11:45 PM [facility] % Monos 6 5 - 13 % 04/05/2025 11:45 PM [facility] % Eos 0.8 0.0 - 7.0 % 04/05/2025 11:45 PM [facility] % Baso 1 0 - 3 % 04/05/2025 11:45 PM [facility] NRBC Absolute <0.01 0 - 0.012 K/ul 04/05/2025 11:45 PM [facility] # Neutros 6.35 2.00 - 6.90 K/ L 04/05/2025 11:45 PM EST [facility] # Lymphs 2.68 0.60 - 3.40 K/ L 04/05/2025 11:45 PM EST [facility] # Monos 0.62 0.00 - 0.90 K/ L 04/05/2025 11:45 PM EST [facility] # Eos 0.08 0.00 - 0.70 K/ L 04/05/2025 11:45 PM EST [facility] # Baso 0.05 0.00 - 0.20 K/ L 04/05/2025 11:45 PM EST [facility] % Imm Grans 0.20 % 04/05/2025 11:45 PM EST [facility] # IG 0.02(H) 0.00 - 0.00 K/uL 04/05/2025 11:45 PM EST [facility] Blood Venipuncture / Unknown 04/05/2025 11:30 PM EST 04/05/2025 11:41 PM EST Narrative [facility] - 04/05/2025 11:45 PM EST [...] MD LAB BLOOD ORDERABLES Lainey l Result [facility] [address] [place], [place] [id number], [facility] [phone] * (ABNORMAL) Urinalysis w/Microscopic (04/05/2025 11:04 PM EST) Color, UA Yellow 04/05/2025 11:43 PM EST [facility] Clarity, UA Clear 04/05/2025 11:43 PM [facility] Specific [place], UA 1.025 1.002 - 1.030 04/05/2025 11:43 PM [facility] pH, UA 6.0 5.0 - 9.0 04/05/2025 11:43 PM [facility] Leukocytes, UA Negative Negative 04/05/2025 11:43 PM [facility] Nitrite, UA Negative Negative 04/05/2025 11:43 PM [facility] Protein, UA 1+(A) Negative 04/05/2025 11:43 PM [facility] Glucose, UA Negative Negative 04/05/2025 11:43 PM [facility] Ketones, UA Trace(A) Negative 04/05/2025 11:43 PM [facility] Urobilinogen, UA 0.2 mg/dL Normal 04/05/2025 11:43 PM [facility] Bilirubin, UA Negative Negative 04/05/2025 11:43 PM [facility] Blood, UA 3+(A) Negative 04/05/2025 11:43 PM [facility] RBC, UA 5-10(A) None Seen, Rare /HPF 04/05/2025 11:43 PM [facility] WBC, UA 0-5 None Seen, Occasional , 0-5 /HPF 04/05/2025 11:43 PM [facility] Bacteria, UA 2+(A) None Seen 04/05/2025 11:43 PM [facility] Mucus 1+(A) Trace 04/05/2025 11:43 PM [facility] SQUAMOUS EPITHELIAL 0-5(A) None Seen, Rare /HPF 04/05/2025 11:43 PM [facility] Ca Oxalate [place], UA 2+(A) (none) 04/05/2025 11:43 PM [facility] Specimen Source Urine, Clean Catch 04/05/2025 11:43 PM [facility] Urine URINE SPECIMEN COLLECTION, CLEAN CATCH / Unknown 04/05/2025 11:04 PM EST 04/05/2025 11:04 PM EST us Keke Gar MD URINE ORDERABLES Final Re sult [facility] [address] [id number], [facility] [phone] documented in this encounter Visit Diagnoses Diagnosis Ectopic - Primary Unspecified ectopic without intrauterine documented in this encounter Care Teams Sales Forecast Analyst Relationship Specialty Start Date End Date Sarika Moyer, STRAPPING MACHINE OPERATOR [address] [place] [address] PCP - General Nurse Practitioner 04/05/25 documented as of this encounter
--- OUTSIDE RECORDS SUMMARY | 2025-04-10 23:39 | XMS_ITS | Encounter Summary ---
Author Organization [employer] ([place], [place], [place], [place], [place]) Address [address] [place] [address] Care Team Providers Care Tankroom Worker Name Role Phone Sarika Moyer TRANSPLANT CASE MANAGER Primary Care Provider + Reason for Visit [...] EST - 04/11/2025 5:09 AM EST Emergency [facility] Emergency Department [address] [place] [phone] Farzad Stiles MD [address] [place] [address] Ectopic (Primary Dx); Hypokalemia Discharge Disposition: Home [...] with your primary care doctor or project design engineer, call for appointment. Return to the emergency department for any new or worsening symptoms. TANK TENDER * Attachments The following attachments cannot be sent through Care Everywhere. * Hypokalemia (Zimbabwean) * Ectopic [id number] (Zimbabwean) documented in this encounter ED Notes * [...] 2. Hypokalemia Farzad Stiles MD 04/11/25 0508 TANK TENDER documented in this encounter Plan of Treatment [...] sac. IMPRESSION: Authenticated and Farzad Stiles MD [facility] ORDERABLES Edited Result - Final * hCG, quantitative, (04/11/2025 1:20 AM EST) HCG Serum Quant 133 mIU/mL 1:58 AM EST [facility] Comment: Results of the HCG [...] MD LAB BLOOD ORDERABLES Final Resu lt [facility] [address] [place] [address] * (ABNORMAL) Comprehensive metabolic panel (04/11/2025 1:20 AM EST) Sodium 142 136 - 145 meq/L 04/11/2025 1:58 AM EST [facility] Potassium 3.1(L) 3.5 - 5.1 meq/L 04/11/2025 1:58 AM EST [facility] Chloride 105 98 - 107 meq/L 04/11/2025 1:58 AM EST [facility] CO2 28 21 - 32 meq/L 04/11/2025 1:58 AM EST [facility] Calcium 9.0 8.5 - 10.1 mg/dL 04/11/2025 1:58 AM EST [facility] Glucose 105(H) 74 - 100 mg/dL 04/11/2025 1:58 AM EST [facility] BUN 11 7 - 18 mg/dL 04/11/2025 1:58 AM EST [facility] Creatinine 0.61 0.55 - 1.10 mg/dL 04/11/2025 1:58 AM [facility] BUN/Creatinine 18 04/11/2025 1:58 AM [facility] Albumin 3.9 3.4 - 5.0 g/dL 04/11/2025 1:58 AM [facility] Alkaline Phosphatase 78 46 - 116 U/L 04/11/2025 1:58 AM [facility] ALT 12 12 - 78 U/L 04/11/2025 1:58 AM [facility] AST 11(L) 15 - 37 U/L 04/11/2025 1:58 AM [facility] Total Bilirubin 0.4 0.2 - 1.0 mg/dL 04/11/2025 1:58 AM [facility] Protein, Total 7.1 6.4 - 8.2 gm/dL 04/11/2025 1:58 AM [facility] Anion Gap 12 11 - 22 04/11/2025 1:58 AM [facility] A/G Ratio 1.2 04/11/2025 1:58 AM [facility] Globulin 3.2 g/dL 04/11/2025 1:58 AM [facility] Osmolality Calc 282.9 mOsm/kg 1:58 AM [facility] eGFR (mL/min/1.73m2) >60 >=60 mL/min/1.7 3m2 04/11/2025 1:58 AM [facility] Comment:ESTIMATED GFR IS NOT ACCURATE CREATININE CLEARANCE IN PREDICTING GLOMERULAR FILTRATION RATE. ESTIMATED GFR IS NOT APPLICABLE FOR DIALYSIS PATIENTS. Blood Venipuncture / Unknown 04/11/2025 1:20 AM EST 04/11/2025 1:23 AM EST us Farzad Stiles MD LAB BLOOD ORDERABLES Final Resu lt [facility] [address] [place] [address], [facility] [phone] * (ABNORMAL) CBC with Auto Diff (04/11/2025 1:20 AM [facility]) WBC 7.3 4.8 - 10.8 K/ L 04/11/2025 1:27 AM [facility] RBC 4.32 3.50 - 5.20 M/ L 04/11/2025 1:27 AM [facility] Hemoglobin 12.7 11.7 - 15.8 GM/DL 04/11/2025 1:27 AM [facility] Hematocrit 37.8 35.0 - 47.0 % 04/11/2025 1:27 AM [facility] MCV 88 81 - 101 fL 04/11/2025 1:27 AM [facility] MCH 29.4 27.0 - 34.0 pg 04/11/2025 1:27 AM [facility] MCHC 33.6 32.0 - 36.0 GM/DL 04/11/2025 1:27 AM [facility] RDW 13.2 11.5 - 14.5 % 04/11/2025 1:27 AM [facility] Platelets 432(H) 150 - 400 K/CU MM 04/11/2025 1:27 AM [facility] MPV 9.1(L) 9.4 - 12.4 fL 04/11/2025 1:27 AM [facility] Nucleated Red Blood Cell 0.0 0 - 0.2 % 04/11/2025 1:27 AM [facility] % Neutros 55 37 - 80 % 04/11/2025 1:27 AM [facility] % Lymphs 34 10 - 50 % 04/11/2025 1:27 AM [facility] % Monos 9 5 - 13 % 04/11/2025 1:27 AM [facility] % Eos 1.5 0.0 - 7.0 % 04/11/2025 1:27 AM [facility] % Baso 1 0 - 3 % 04/11/2025 1:27 AM [facility] NRBC Absolute <0.01 0 - 0.012 K/ul 04/11/2025 1:27 AM EST [facility] # Neutros 4.04 2.00 - 6.90 K/ L 04/11/2025 1:27 AM EST [facility] # Lymphs 2.51 0.60 - 3.40 K/ L 04/11/2025 1:27 AM EST [facility] # Monos 0.62 0.00 - 0.90 K/ L 04/11/2025 1:27 AM EST [facility] # Eos 0.11 0.00 - 0.70 K/ L 04/11/2025 1:27 AM EST [facility] # Baso 0.04 0.00 - 0.20 K/ L 04/11/2025 1:27 AM EST [facility] % Imm Grans 0.10 % 04/11/2025 1:27 AM EST [facility] # IG 0.01(H) 0.00 - 0.00 K/uL 04/11/2025 1:27 AM EST [facility] Blood Venipuncture / Unknown 04/11/2025 1:20 AM EST 04/11/2025 1:23 AM EST Narrative [facility] - 04/11/2025 1:27 AM EST [...] MD LAB BLOOD ORDERABLES Final Resu lt [facility] [address] [place], [place] [id number] [phone] documented in this encounter Visit Diagnoses Diagnosis [...] access) documented in this encounter Care Teams Tankroom Worker Relationship Specialty Start Date End Date Sarika Moyer, TRANSPLANT CASE MANAGER [address] [place] [address] PCP - General Nurse Practitioner 04/05/25 documented as of this encounter
--- OUTSIDE RECORDS SUMMARY | 2025-04-18 19:23 | XMS_ITS | Encounter Summary ---
Author Organization [facility] ([place], [place], [place], [place], [place]) Address [address] [place] [address] Care Team Providers Care Boat Operator Name Role Phone Sarika Moyer EXECUTIVE COMPENSATION ANALYST Primary Care Provider + Reason for Visit * Reason Comments Vaginal Bleeding Pt was diagnosed wit h an ectopic on March 25. States she is passing clots today. HCG was 11 yesterday. Encounter Details Date Type Department Care Team (Late st Contact Info) Description 04/18/2025 7:23 PM EST - 04/18/2025 9:25 PM EST Emergency [facility] Emergency Department [address] [place] [phone] Toy Egan MD [address] [place] [address] Vaginal bleeding (Primary Dx) Discharge Disposition: Home [...] through Care Everywhere. * Abnormal Uterine Bleeding [id number] (Yakut) documented in this encounter ED Notes * [...] Relationship: PCP - General [address] [facility] [address] Next Steps: Schedule an appointment as soon as possible for a visit in 2 day(s) Electronically Signed By Toy Egan MD 04/18/252118 E HOP documented in this encounter Plan of Treatment Not on file documented as of this encounter Procedures Procedure Name Priority Date/Time Associated Diagnosis Comments HCG, QUANTITATIVE, STAT 04/18/2025 8:19 PM EST documented in this encounter Results * hCG, quantitative, (04/18/2025 8:19 PM EST) Pathologist [facility] HCG Serum Quant 6 mIU/mL 9:06 PM EST [facility] Comment: Results of the HCG [...] MD LAB BLOOD ORDERABLES Final Resu lt [facility] [address] [place] [address], [facility] [phone] documented in this encounter Visit Diagnoses Diagnosis Vaginal bleeding- Primary Other specified noninflammatory disorder of vagina documented in this encounter Care Teams Boat Operator Relationship Specialty Start Date End Date Sarika Moyer, EXECUTIVE COMPENSATION ANALYST [address] [place] [address] PCP - General Nurse Practitioner 04/05/25 documented as of this encounter
--- OUTSIDE RECORDS SUMMARY | 2025-04-29 18:54 | XMS_ITS | Encounter Summary ---
Author Organization [employer] ([place], [place], [place], [place], [place]) Address [address] [place] [address] Care Team Providers Care School Library Media Specialist Name Role Phone Sarika Moyer TELETYPE CLERK Primary Care Provider + Reason for Visit * Reason Comments Abdominal Pain Pt c/o abdominal zion n. Pt had a ectopic . Encounter Details Date Type Department Care Team (Late st Contact Info) Description 04/29/2025 6:54 PM EST - 04/29/2025 10:26 PM EST Emergency [facility] Emergency Department [address] [place] [phone] Zara Ross MD [address] [place] [address] Periumbilical abdominal pain (Primary Dx) Discharge Disposition: [...] your primary care doctor and with your BEAM BUILDER. Please return to the emergency department if you have absolutely any concerns at any time. R SCREWDRIVER OPERATOR documented in this encounter Plan of [...] ATRIAL RATE (MCT) 78 BPM GE MUSE ND Interval 116 ms GE MUSE QRS-INTERVAL (MSEC) 80 ms GE MUSE QT Interval 376 ms GE MUSE QTC Interval 428 ms GE MUSE P [place] 52 degrees GE MUSE R AXIS (MCT) -52 degrees GE MUSE T Wave [place] 43 degrees GE MUSE [facility] Diagnosis Normal sinus rhythm Left anterior fascicular block Cannot rule out Anterior infarct , age undetermined Confirmed by Rema RINALDI RICHARD ([id number]) on 05/01/2025 3:51:47 PM GE MUSE 04/29/2025 7:34 PM EST 05/01/2025 3:51 PM EST us Zara Ross MD ECG ORDERABLES Final Res ult Performing Organization Address City/[facility]/ZIP Co de Phone Number GE MUSE * (ABNORMAL) Urinalysis Microscopic Only (04/29/2025 7:34 PM EST) WBC, UA Occasional None Seen, Occasional , 0-5 /HPF 04/29/2025 7:55 PM EST [facility] RBC, UA None Seen None Seen, Rare /HPF 04/29/2025 7:55 PM EST [facility] Bacteria, UA 2+(A) None Seen 04/29/2025 7:55 PM EST [facility] Amorphous Crystals 2+(A) None Seen, Trace 04/29/2025 7:55 PM EST [facility] SQUAMOUS EPITHELIAL Occasional(A) None Seen, Rare /HPF 04/29/2025 7:55 PM EST [facility] Urine URINE SPECIMEN COLLECTION, CLEAN CATCH / Unknown 04/29/2025 7:34 PM EST 04/29/2025 7:40 PM EST Zara Ross MD URINE ORDERABLES Final Re sult [facility] [address] [place] [address] * (ABNORMAL) Urinalysis, Reflex Microscopic and Culture If Indicated (04/29/2025 7:34 PM EST) Color, UA Light Yellow 04/29/2025 7:54 PM EST [facility] Clarity, UA Turbid 04/29/2025 7:54 PM EST [facility] Specific [place], UA 1.020 1.002 - 1.030 04/29/2025 7:54 PM EST [facility] pH, UA 7.0 5.0 - 9.0 04/29/2025 7:54 PM EST [facility] Leukocytes, UA Negative Negative 04/29/2025 7:54 PM EST [facility] Nitrite, UA Negative Negative 04/29/2025 7:54 PM EST [facility] Protein, UA Trace(A) Negative 04/29/2025 7:54 PM EST [facility] Glucose, UA Negative Negative 04/29/2025 7:54 PM EST [facility] Ketones, UA Negative Negative 04/29/2025 7:54 PM EST [facility] Bilirubin, UA Negative Negative 04/29/2025 7:54 PM EST [facility] Blood, UA Negative Negative 04/29/2025 7:54 PM EST [facility] Urobilinogen, UA 0.2 mg/dL Normal 04/29/2025 7:54 PM EST [facility] Specimen Source Urine, Clean Catch 04/29/2025 7:54 PM EST [facility] Urine URINE SPECIMEN COLLECTION, CLEAN CATCH / Unknown 04/29/2025 7:34 PM EST 04/29/2025 7:40 PM EST us Zara Ross MD URINE ORDERABLES Final Re sult [facility] [address] [place] [id number] [phone] * D-dimer (04/29/2025 7:31 PM EST) D-Dimer, Quant ([facility]) 140.69 <=500.00 ng/mL FEU 04/29/2025 8:13 PM EST [facility] Comment: A normal D-dimer result [...] ORDERABLES Lainey l Result Performing Organization Address [facility] Co de Phone Number [facility] [address] [place] [address] * (ABNORMAL) High Sensitivity Troponin I (04/29/2025 7:31 PM EST) Pathologist [facility] Troponin I High Sensitivity (pg/mL) <4(L) 4 - 60.3 pg/mL 04/29/2025 8:08 PM EST [facility] Comment: Troponin Result (pg/mL) *Interpretation [...] ORDERABLES Lainey l Result Performing Organization Address [facility]/ZIP Co de Phone Number [facility] [address] [place] [address] * Lipase (04/29/2025 7:31 PM EST) Lipase 40 16 - 77 U/L 04/29/2025 8:07 PM EST [facility] Blood Venipuncture / Unknown 04/29/2025 7:31 PM EST 04/29/2025 7:40 PM EST us Zara Ross MD LAB BLOOD ORDERABLES Lainey l Result [facility] [address] [place] [address] * (ABNORMAL) Comprehensive metabolic panel (04/29/2025 7:31 PM EST) Pathologist [facility] Sodium 140 136 - 145 meq/L 04/29/2025 8:07 PM [facility] Potassium 3.6 3.5 - 5.1 meq/L 04/29/2025 8:07 PM [facility] Chloride 102 98 - 107 meq/L 04/29/2025 8:07 PM [facility] CO2 29 21 - 32 meq/L 04/29/2025 8:07 PM [facility] Calcium 9.6 8.5 - 10.1 mg/dL 04/29/2025 8:07 PM [facility] Glucose 89 74 - 100 mg/dL 04/29/2025 8:07 PM [facility] BUN 12 7 - 18 mg/dL 04/29/2025 8:07 PM [facility] Creatinine 0.54(L) 0.55 - 1.10 mg/dL 04/29/2025 8:07 PM [facility] BUN/Creatinine 22 04/29/2025 8:07 PM [facility] Albumin 4.5 3.4 - 5.0 g/dL 04/29/2025 8:07 PM [facility] Alkaline Phosphatase 97 46 - 116 U/L 04/29/2025 8:07 PM [facility] ALT 12 12 - 78 U/L 04/29/2025 8:07 PM [facility] AST 12(L) 15 - 37 U/L 04/29/2025 8:07 PM [facility] Total Bilirubin 0.3 0.2 - 1.0 mg/dL 04/29/2025 8:07 PM [facility] Protein, Total 8.1 6.4 - 8.2 gm/dL 04/29/2025 8:07 PM [facility] Anion Gap 13 - 04/29/2025 8:07 PM [facility] A/G Ratio 1.3 04/29/2025 8:07 PM [facility] Globulin 3.6 g/dL 04/29/2025 8:07 PM [facility] Osmolality Calc 278.6 mOsm/kg 8:07 PM [facility] eGFR (mL/min/1.73m2) >60 >=60 mL/min/1.7 3m2 04/29/2025 8:07 PM [facility] Comment:ESTIMATED GFR IS NOT ACCURATE CREATININE CLEARANCE IN PREDICTING GLOMERULAR FILTRATION RATE. ESTIMATED GFR IS NOT APPLICABLE FOR DIALYSIS PATIENTS. Blood Venipuncture / Unknown 04/29/2025 7:31 PM EST 04/29/2025 7:40 PM EST us Zara Ross MD LAB BLOOD ORDERABLES Lainey mckay Result [facility] [address] [place], [place] [address] [phone] * hCG, quantitative, (04/29/2025 7:31 PM EST) HCG Serum Quant 1 mIU/mL 8:07 PM [facility] Comment: Results of the HCG [...] MD LAB BLOOD ORDERABLES Lainey mckay Result [facility] [address] [place], [place] [address] [phone] * (ABNORMAL) CBC with Auto Diff (04/29/2025 7:31 PM EST) WBC 9.4 4.8 - 10.8 K/ L 04/29/2025 7:44 PM [facility] RBC 4.73 3.50 - 5.20 M/ L 04/29/2025 7:44 PM EST [facility] Hemoglobin 13.7 11.7 - 15.8 GM/DL 04/29/2025 7:44 PM EST [facility] Hematocrit 41.2 35.0 - 47.0 % 04/29/2025 7:44 PM EST [facility] MCV 87 81 - 101 fL 04/29/2025 7:44 PM [facility] MCH 29.0 27.0 - 34.0 pg 04/29/2025 7:44 PM [facility] MCHC 33.3 32.0 - 36.0 GM/DL 04/29/2025 7:44 PM [facility] RDW 12.9 11.5 - 14.5 % 04/29/2025 7:44 PM [facility] Platelets 501(H) 150 - 400 K/CU MM 04/29/2025 7:44 PM [facility] MPV 9.1(L) 9.4 - 12.4 fL 04/29/2025 7:44 PM [facility] Nucleated Red Blood Cell 0.0 0 - 0.2 % 04/29/2025 7:44 PM [facility] % Neutros 64 37 - 80 % 04/29/2025 7:44 PM [facility] % Lymphs 28 10 - 50 % 04/29/2025 7:44 PM [facility] % Monos 7 5 - 13 % 04/29/2025 7:44 PM [facility] % Eos 0.5 0.0 - 7.0 % 04/29/2025 7:44 PM [facility] % Baso 0 0 - 3 % 04/29/2025 7:44 PM [facility] NRBC Absolute <0.01 0 - 0.012 K/ul 04/29/2025 7:44 PM [facility] # Neutros 6.04 2.00 - 6.90 K/ L 04/29/2025 7:44 PM [facility] # Lymphs 2.60 0.60 - 3.40 K/ L 04/29/2025 7:44 PM [facility] # Monos 0.69 0.00 - 0.90 K/ L 04/29/2025 7:44 PM [facility] # Eos 0.05 0.00 - 0.70 K/ L 04/29/2025 7:44 PM [facility] # Baso 0.04 0.00 - 0.20 K/ L 04/29/2025 7:44 PM [facility] % Imm Grans 0.10 % 04/29/2025 7:44 PM [facility] # IG 0.01(H) 0.00 - 0.00 K/uL 04/29/2025 7:44 PM [facility] Blood Venipuncture / Unknown 04/29/2025 7:31 PM EST 04/29/2025 7:40 PM EST Narrative [facility] - 04/29/2025 7:44 PM EST [...] MD LAB BLOOD ORDERABLES Lainey mckay Result [facility] [address] [place] [address], [facility] [phone] documented in this encounter Visit Diagnoses Diagnosis Periumbilical abdominal pain- Primary Abdominal pain, periumbilic documented in this encounter Care Teams School Library Media Specialist Relationship Specialty Start Date End Date Sarika Moyer, TELETYPE CLERK [address] [place] [address] PCP - General Nurse Practitioner 04/05/25 documented as of this encounter
--- OUTSIDE RECORDS SUMMARY | 2025-05-03 08:59 | XMS_ITS | Referral Summary ---
Author Organization [employer] ([place], [place], [place], [place], [place]) Address [address] [place] [address] Care Team Providers Care Fish Cutting Machine Operator Name Role Phone Sarika Moyer RAIL WALKER Primary Care Provider + Encounters Date Type Department Care Team Description 04/29/2025 Travel 04/29/2025 6:54 PM EST - 04/29/2025 10:26 PM EST Emergency [facility] Emergency Department [address] [place] [address] Zara Ross MD Periumbilical abdominal pain (Primary Dx) Discharge Disposition: Home or Self Care 04/18/2025 Travel 04/18/2025 7:23 PM EST - 04/18/2025 9:25 PM EST Emergency [facility] Emergency Department [address] [place] [address] Toy Egan MD Vaginal bleeding (Primary Dx) Discharge Disposition: Home or Self Care 04/10/2025 11:39 PM EST - 04/11/2025 5:09 AM EST Emergency [facility] Emergency Department [address] [place], [place] [phone] Farzad Stiles MD Ectopic (Primary Dx); Hypokalemia Discharge Disposition: Home or Self Care 04/10/2025 Travel 04/05/2025 10:43 PM EST - 04/06/2025 2:31 AM EST Emergency [facility] Emergency Department [address] [place], [place] [phone] Keke Gar MD Ectopic (Primary Dx) Discharge [...] QTC Interval 428 ms GE MUSE P Mathis 52 degrees GE MUSE R AXIS (MCT) -52 degrees GE MUSE T Wave Mathis 43 degrees GE MUSE [place] Diagnosis Normal sinus rhythm Left anterior fascicular block Cannot rule out Anterior infarct , age undetermined Confirmed by Rema RINALDI, ARLETH ([id number]) on 05/01/2025 3:51:47 PM GE MUSE 04/29/2025 7:34 PM EST 05/01/2025 3:51 PM EST us Zara Ross MD ECG ORDERABLES Final Res ult GE [place] * (ABNORMAL) Urinalysis, Reflex Microscopic and Culture If Indicated (04/29/2025 7:34 PM EST) Color, UA Light Yellow 04/29/2025 7:54 PM EST [facility] Clarity, UA Turbid 04/29/2025 7:54 PM EST [facility] Specific [place], UA 1.020 1.002 - 1.030 04/29/2025 7:54 PM EST [facility] pH, UA 7.0 5.0 - 9.0 04/29/2025 7:54 PM EST [facility] Leukocytes, UA Negative Negative 04/29/2025 7:54 PM EST [facility] Nitrite, UA Negative Negative 04/29/2025 7:54 PM EST [facility] Protein, UA Trace(A) Negative 04/29/2025 7:54 PM EST [facility] Glucose, UA Negative Negative 04/29/2025 7:54 PM EST [facility] Ketones, UA Negative Negative 04/29/2025 7:54 PM EST [facility] Bilirubin, UA Negative Negative 04/29/2025 7:54 PM EST [facility] Blood, UA Negative Negative 04/29/2025 7:54 PM EST [facility] Urobilinogen, UA 0.2 mg/dL Normal 04/29/2025 7:54 PM EST [facility] Specimen Source Urine, Clean Catch 04/29/2025 7:54 PM EST [facility] Urine URINE SPECIMEN COLLECTION, CLEAN CATCH / Unknown 04/29/2025 7:34 PM EST 04/29/2025 7:40 PM EST us Zara Ross MD URINE ORDERABLES Final Re sult [facility] [address] [place] [address] * (ABNORMAL) Urinalysis Microscopic Only (04/29/2025 7:34 PM EST) WBC, UA Occasional None Seen, Occasional , 0-5 /HPF 04/29/2025 7:55 PM EST [facility] RBC, UA None Seen None Seen, Rare /HPF 04/29/2025 7:55 PM EST [facility] Bacteria, UA 2+(A) None Seen 04/29/2025 7:55 PM EST [facility] Amorphous Crystals 2+(A) None Seen, Trace 04/29/2025 7:55 PM EST [facility] SQUAMOUS EPITHELIAL Occasional(A) None Seen, Rare /HPF 04/29/2025 7:55 PM EST [facility] Urine URINE SPECIMEN COLLECTION, CLEAN CATCH / Unknown 04/29/2025 7:34 PM EST 04/29/2025 7:40 PM EST us Zara Ross MD URINE ORDERABLES Final Re sult [facility] [address] [place] [address] * (ABNORMAL) CBC with Auto Diff (04/29/2025 7:31 PM EST) Only the most recent of3 resultswithin the time period is included. WBC 9.4 4.8 - 10.8 K/ L 04/29/2025 7:44 PM [facility] RBC 4.73 3.50 - 5.20 M/ L 04/29/2025 7:44 PM [facility] Hemoglobin 13.7 11.7 - 15.8 GM/DL 04/29/2025 7:44 PM [facility] Hematocrit 41.2 35.0 - 47.0 % 04/29/2025 7:44 PM EST [facility] MCV 87 81 - 101 fL 04/29/2025 7:44 PM [facility] MCH 29.0 27.0 - 34.0 pg 04/29/2025 7:44 PM [facility] MCHC 33.3 32.0 - 36.0 GM/DL 04/29/2025 7:44 PM [facility] RDW 12.9 11.5 - 14.5 % 04/29/2025 7:44 PM [facility] Platelets 501(H) 150 - 400 K/CU MM 04/29/2025 7:44 PM [facility] MPV 9.1(L) 9.4 - 12.4 fL 04/29/2025 7:44 PM [facility] Nucleated Red Blood Cell 0.0 0 - 0.2 % 04/29/2025 7:44 PM [facility] % Neutros 64 37 - 80 % 04/29/2025 7:44 PM [facility] % Lymphs 28 10 - 50 % 04/29/2025 7:44 PM [facility] % Monos 7 5 - 13 % 04/29/2025 7:44 PM [facility] % Eos 0.5 0.0 - 7.0 % 04/29/2025 7:44 PM [facility] % Baso 0 0 - 3 % 04/29/2025 7:44 PM [facility] NRBC Absolute <0.01 0 - 0.012 K/ul 04/29/2025 7:44 PM [facility] # Neutros 6.04 2.00 - 6.90 K/ L 04/29/2025 7:44 PM [facility] # Lymphs 2.60 0.60 - 3.40 K/ L 04/29/2025 7:44 PM [facility] # Monos 0.69 0.00 - 0.90 K/ L 04/29/2025 7:44 PM [facility] # Eos 0.05 0.00 - 0.70 K/ L 04/29/2025 7:44 PM [facility] # Baso 0.04 0.00 - 0.20 K/ L 04/29/2025 7:44 PM EST [facility] % Imm Grans 0.10 % 04/29/2025 7:44 PM EST [facility] # IG 0.01(H) 0.00 - 0.00 K/uL 04/29/2025 7:44 PM EST [facility] Blood Venipuncture / Unknown 04/29/2025 7:31 PM EST 04/29/2025 7:40 PM EST Narrative [facility] - 04/29/2025 7:44 PM EST [...] MD LAB BLOOD ORDERABLES Lainey l Result [facility] [address] [place] [address] * (ABNORMAL) High Sensitivity Troponin I (04/29/2025 7:31 PM EST) Troponin I High Sensitivity (pg/mL) <4(L) 4 - 60.3 pg/mL 04/29/2025 8:08 PM EST [facility] Comment: Troponin Result (pg/mL) *Interpretation [...] MD LAB BLOOD ORDERABLES Lainey l Result [facility] [address] [place] [address] * D-dimer (04/29/2025 7:31 PM EST) D-Dimer, Quant ([facility]) 140.69 <=500.00 ng/mL FEU 04/29/2025 8:13 PM EST [facility] Comment: A normal D-dimer result [...] ORDERABLES Lainey l Result Performing Organization Address [facility] Co de Phone Number [facility] [address] [place] [address] * hCG, quantitative, (04/29/2025 7:31 PM EST) Only the most recent of3 resultswithin the time period is included. HCG Serum Quant 1 mIU/mL 8:07 PM EST [facility] Comment: Results of the HCG [...] MD LAB BLOOD ORDERABLES Lainey l Result [facility] [address] [place] [address] * Lipase (04/29/2025 7:31 PM EST) Pathologist [facility] Lipase 40 16 - 77 U/L 04/29/2025 8:07 PM EST [facility] Blood Venipuncture / Unknown 04/29/2025 7:31 PM EST 04/29/2025 7:40 PM EST Zara Ross MD LAB BLOOD ORDERABLES Lainey l Result Performing Organization Address City/[facility]/ZIP Co de Phone Number [facility] [address] [place] [address] * (ABNORMAL) Comprehensive metabolic panel (04/29/2025 7:31 PM EST) Only the most recent of3 resultswithin the time period is included. Pathologist [facility] Sodium 140 136 - 145 meq/L 04/29/2025 8:07 PM EST [facility] Potassium 3.6 3.5 - 5.1 meq/L 04/29/2025 8:07 PM EST [facility] Chloride 102 98 - 107 meq/L 04/29/2025 8:07 PM EST [facility] CO2 29 21 - 32 meq/L 04/29/2025 8:07 PM EST [facility] Calcium 9.6 8.5 - 10.1 mg/dL 04/29/2025 8:07 PM EST [facility] Glucose 89 74 - 100 mg/dL 04/29/2025 8:07 PM [facility] BUN 12 7 - 18 mg/dL 04/29/2025 8:07 PM [facility] Creatinine 0.54(L) 0.55 - 1.10 mg/dL 04/29/2025 8:07 PM [facility] BUN/Creatinine 22 04/29/2025 8:07 PM [facility] Albumin 4.5 3.4 - 5.0 g/dL 04/29/2025 8:07 PM [facility] Alkaline Phosphatase 97 46 - 116 U/L 04/29/2025 8:07 PM [facility] ALT 12 12 - 78 U/L 04/29/2025 8:07 PM [facility] AST 12(L) 15 - 37 U/L 04/29/2025 8:07 PM [facility] Total Bilirubin 0.3 0.2 - 1.0 mg/dL 04/29/2025 8:07 PM [facility] Protein, Total 8.1 6.4 - 8.2 gm/dL 04/29/2025 8:07 PM [facility] Anion Gap 13 11 - 04/29/2025 8:07 PM [facility] A/G Ratio 1.3 04/29/2025 8:07 PM [facility] Globulin 3.6 g/dL 04/29/2025 8:07 PM [facility] Osmolality Calc 278.6 mOsm/kg 8:07 PM [facility] eGFR (mL/min/1.73m2) >60 >=60 mL/min/1.7 3m2 04/29/2025 8:07 PM [facility] Comment:ESTIMATED GFR IS NOT ACCURATE CREATININE CLEARANCE IN PREDICTING GLOMERULAR FILTRATION RATE. ESTIMATED GFR IS NOT APPLICABLE FOR DIALYSIS PATIENTS. Blood Venipuncture / Unknown 04/29/2025 7:31 PM EST 04/29/2025 7:40 PM EST us aZra Ross MD LAB BLOOD ORDERABLES Lainey mckay Result [facility] [address] [place] [id number], [facility] [phone] * US OB transvaginal (04/11/2025 2:29 AM [...] sac. IMPRESSION: Authenticated and Farzad Stiles MD [facility] ORDERABLES Edited Result - Final * (ABNORMAL) Urinalysis w/Microscopic (04/05/2025 11:04 PM EST) Color, UA Yellow 04/05/2025 11:43 PM EST [facility] Clarity, UA Clear 04/05/2025 11:43 PM EST [facility] Specific [place], UA 1.025 1.002 - 1.030 04/05/2025 11:43 PM EST [facility] pH, UA 6.0 [...] Gar MD URINE ORDERABLES Final Re sult [facility] [address] [place] [address], [facility] [phone] from Last 3 Months Insurance [facility] Care Teams Fish Cutting Machine Operator Relationship Specialty Start Date End Date Sarika Moyer, RAIL WALKER [address] [place] [address] PCP - General Nurse Practitioner 04/05/25
--- OUTSIDE RECORDS SUMMARY | 2025-05-03 08:59 | XMS_ITS | Encounter Summary ---
Author Organization [employer] ([place], [place], [place], [place], [place]) Address [address] [place] [address] Care Team Providers Care Parachute Marker Name Role Phone Sarika Moyer DESIGN VERIFICATION ENGINEER Primary Care Provider + Encounter Details [...] on filedocumented in this encounter Care Teams Parachute Marker Relationship Specialty Start Date End Date Sarika Moyer APRN [address] [place] [address] PCP - General Nurse Practitioner 04/05/25 documented as of this encounter
--- OUTSIDE RECORDS SUMMARY | 2025-05-03 08:59 | XMS_ITS | Encounter Summary ---
Author Organization Healthcare Address [address] [id number] Care Team Providers Care Transport Aircrewman Name Role Phone Sarika Moyer GRADE SETTER Primary Care Provider + Encounter Details Date [...] on filedocumented in this encounter Care Teams Transport Aircrewman Relationship Specialty Start Date End Date Sarika Moyer, GRADE SETTER [address] [place] [place] [address] PCP - General 10/14/20 documented as of this encounter
--- OUTSIDE RECORDS SUMMARY | 2025-05-03 08:59 | XMS_ITS | Encounter Summary ---
Author Organization Healthcare Address [address] [place] [address] Care Team Providers Care Conference Coordinator Name Role Phone Sarika Moyer FOOD AND BEVERAGE SERVICE MANAGER Primary Care Provider + Encounter Details Date Type Department Care Team ([facility] st Contact Info) Description 03/17/2025 Telephone Obstetrics & Gynecology [address] [place] [address] Chiki Cardenas MD [address] [place] [address] Social History Tobacco Use Types [...] on filedocumented in this encounter Care Teams Conference Coordinator Relationship Specialty Start Date End Date Sarika Moyer APRN [address] [place] [address] PCP - General 10/14/20 documented as of this encounter
--- OUTSIDE RECORDS SUMMARY | 2025-05-03 08:59 | XMS_ITS | Encounter Summary ---
Author Organization [employer] ([place], [place], [place], [place], [place]) Address [address] [place] [address] Care Team Providers Care Poultry Field Service Technician Name Role Phone Sarika Moyer CLERICAL METHODS ANALYST Primary Care Provider + Encounter Details [...] on filedocumented in this encounter Care Teams Poultry Field Service Technician Relationship Specialty Start Date End Date Sarika Moyer APRN [address] [place] [address] PCP - General Nurse Practitioner 04/05/25 documented as of this encounter
--- OUTSIDE RECORDS SUMMARY | 2025-05-03 08:59 | XMS_ITS | Clinical Summary ---
Author Organization [employer] ([place], [place], [place], [place], [place]) Address [address] [place] [address] Care Team Providers Care Asbestos Removal Supervisor Name Role Phone Sarika Moyer FIXED ROUTE BUS OPERATOR Primary Care Provider + Allergies Active Allergy Reactions Criticality Noted Date Comments Escitalopram 04/05/2025 Acetaminophen-Dm 04/05/2025 Medications No known medications Encounters Date Type Department Care Team Description 04/29/2025 6:54 PM EST - 04/29/2025 10:26 PM EST Emergency [facility] Emergency Department [address] [place] [phone] Zara Ross MD Periumbilical abdominal pain (Primary Dx) Discharge Disposition: Home or Self Care 04/29/2025 Travel 04/18/2025 7:23 PM EST - 04/18/2025 9:25 PM EST Emergency [facility] Emergency Department [address] [place] [phone] Toy Egan MD Vaginal bleeding (Primary Dx) Discharge Disposition: Home or Self Care 04/18/2025 Travel 04/10/2025 11:39 PM EST - 04/11/2025 5:09 AM EST Emergency [facility] Emergency Department [address] [place] [phone] Farzad Stiles MD Ectopic (Primary Dx); Hypokalemia Discharge Disposition: Home or Self Care 04/10/2025 Travel 04/05/2025 10:43 PM EST - 04/06/2025 2:31 AM EST Emergency [facility] Emergency Department [address] [place] [phone] Keke Gar MD Ectopic (Primary Dx) Discharge [...] ATRIAL RATE (MCT) 78 BPM GE MUSE SD Interval 116 ms GE MUSE QRS-INTERVAL (MSEC) 80 ms GE MUSE QT Interval 376 ms GE MUSE QTC Interval 428 ms GE MUSE P [place] 52 degrees GE MUSE R AXIS (MCT) -52 degrees GE MUSE T Wave [place] 43 degrees GE MUSE [place] Diagnosis Normal sinus rhythm Left anterior fascicular block Cannot rule out Anterior infarct , age undetermined Confirmed by Rema RINALDI RICHARD ([id number]) on 05/01/2025 3:51:47 PM GE MUSE 04/29/2025 7:34 PM EST 05/01/2025 3:51 PM EST us Zara Ross MD ECG ORDERABLES Final Res ult GE MUSE * (ABNORMAL) Urinalysis, Reflex Microscopic and Culture If Indicated (04/29/2025 7:34 PM EST) Color, UA Light Yellow 04/29/2025 7:54 PM EST [facility] Clarity, UA Turbid 04/29/2025 7:54 PM EST [facility] Specific [place], UA 1.020 1.002 - 1.030 04/29/2025 7:54 PM EST [facility] pH, UA 7.0 5.0 - 9.0 04/29/2025 7:54 PM EST [facility] Leukocytes, UA Negative Negative 04/29/2025 7:54 PM EST [facility] Nitrite, UA Negative Negative 04/29/2025 7:54 PM EST [facility] Protein, UA Trace(A) Negative 04/29/2025 7:54 PM EST [facility] Glucose, UA Negative Negative 04/29/2025 7:54 PM EST [facility] Ketones, UA Negative Negative 04/29/2025 7:54 PM EST [facility] Bilirubin, UA Negative Negative 04/29/2025 7:54 PM EST [facility] Blood, UA Negative Negative 04/29/2025 7:54 PM EST [facility] Urobilinogen, UA 0.2 mg/dL Normal 04/29/2025 7:54 PM EST [facility] Specimen Source Urine, Clean Catch 04/29/2025 7:54 PM EST [facility] Urine URINE SPECIMEN COLLECTION, CLEAN CATCH / Unknown 04/29/2025 7:34 PM EST 04/29/2025 7:40 PM EST us Zara Ross MD URINE ORDERABLES Final Re sult Performing Organization Address City/[facility]/ZIP Co de Phone Number [facility] [address] [place] [address] * (ABNORMAL) Urinalysis Microscopic Only (04/29/2025 7:34 PM EST) WBC, UA Occasional None Seen, Occasional , 0-5 /HPF 04/29/2025 7:55 PM [facility] RBC, UA None Seen None Seen, Rare /HPF 04/29/2025 7:55 PM [facility] Bacteria, UA 2+(A) None Seen 04/29/2025 7:55 PM EST [facility] Amorphous Crystals 2+(A) None Seen, Trace 04/29/2025 7:55 PM EST [facility] SQUAMOUS EPITHELIAL Occasional(A) None Seen, Rare /HPF 04/29/2025 7:55 PM EST [facility] Urine URINE SPECIMEN COLLECTION, CLEAN CATCH / Unknown 04/29/2025 7:34 PM EST 04/29/2025 7:40 PM EST us Zara Ross MD URINE ORDERABLES Final Re sult [facility] [address] [place] [address] * (ABNORMAL) CBC with Auto Diff (04/29/2025 7:31 PM EST) Only the most recent of3 resultswithin the time period is included. WBC 9.4 4.8 - 10.8 K/ L 04/29/2025 7:44 PM [facility] RBC 4.73 3.50 - 5.20 M/ L 04/29/2025 7:44 PM [facility] Hemoglobin 13.7 11.7 - 15.8 GM/DL 04/29/2025 7:44 PM [facility] Hematocrit 41.2 35.0 - 47.0 % 04/29/2025 7:44 PM [facility] MCV 87 81 - 101 fL 04/29/2025 7:44 PM [facility] MCH 29.0 27.0 - 34.0 pg 04/29/2025 7:44 PM [facility] MCHC 33.3 32.0 - 36.0 GM/DL 04/29/2025 7:44 PM [facility] RDW 12.9 11.5 - 14.5 % 04/29/2025 7:44 PM [facility] Platelets 501(H) 150 - 400 K/CU MM 04/29/2025 7:44 PM [facility] MPV 9.1(L) 9.4 - 12.4 fL 04/29/2025 7:44 PM [facility] Nucleated Red Blood Cell 0.0 0 - 0.2 % 04/29/2025 7:44 PM [facility] % Neutros 64 37 - 80 % 04/29/2025 7:44 PM [facility] % Lymphs 28 10 - 50 % 04/29/2025 7:44 PM [facility] % Monos 7 5 - 13 % 04/29/2025 7:44 PM [facility] % Eos 0.5 0.0 - 7.0 % 04/29/2025 7:44 PM [facility] % Baso 0 0 - 3 % 04/29/2025 7:44 PM EST [facility] NRBC Absolute <0.01 0 - 0.012 K/ul 04/29/2025 7:44 PM EST [facility] # Neutros 6.04 2.00 - 6.90 K/ L 04/29/2025 7:44 PM EST [facility] # Lymphs 2.60 0.60 - 3.40 K/ L 04/29/2025 7:44 PM EST [facility] # Monos 0.69 0.00 - 0.90 K/ L 04/29/2025 7:44 PM EST [facility] # Eos 0.05 0.00 - 0.70 K/ L 04/29/2025 7:44 PM EST [facility] # Baso 0.04 0.00 - 0.20 K/ L 04/29/2025 7:44 PM EST [facility] % Imm Grans 0.10 % 04/29/2025 7:44 PM EST [facility] # IG 0.01(H) 0.00 - 0.00 K/uL 04/29/2025 7:44 PM EST [facility] Blood Venipuncture / Unknown 04/29/2025 7:31 PM EST 04/29/2025 7:40 PM EST Narrative [facility] - 04/29/2025 7:44 PM EST When [...] MD LAB BLOOD ORDERABLES Lainey mckay Result [facility] [address] [phone] * (ABNORMAL) High Sensitivity Troponin I (04/29/2025 7:31 PM EST) Troponin I High Sensitivity (pg/mL) <4(L) 4 - 60.3 pg/mL 04/29/2025 8:08 PM EST [facility] Comment: Troponin Result (pg/mL) *Interpretation 4-60.3 [...] ORDERABLES Lainey l Result Performing Organization Address [facility] Co de Phone Number [facility] [address] [place] [address] * D-dimer (04/29/2025 7:31 PM EST) D-Dimer, Quant ([facility]) 140.69 <=500.00 ng/mL FEU 04/29/2025 8:13 PM EST [facility] Comment: A normal D-dimer result <500 [...] ORDERABLES Lainey l Result Performing Organization Address [facility]/ZIP Co de Phone Number [facility] [address] [place] [address] * hCG, quantitative, (04/29/2025 7:31 PM EST) Only the most recent of3 resultswithin the time period is included. HCG Serum Quant 1 mIU/mL 8:07 PM EST [facility] Comment: Results of [...] MD LAB BLOOD ORDERABLES Lainey l Result [facility] [address] [place] [address] * Lipase (04/29/2025 7:31 PM EST) Pathologist [facility] Lipase 40 16 - 77 U/L 04/29/2025 8:07 PM EST [facility] Blood Venipuncture / Unknown 04/29/2025 7:31 PM EST 04/29/2025 7:40 PM EST Zara Ross MD LAB BLOOD ORDERABLES Lainey l Result [facility] [address] [place] [address] * (ABNORMAL) Comprehensive metabolic panel (04/29/2025 7:31 PM EST) Only the most recent of3 resultswithin the time period is included. Sodium 140 136 - 145 meq/L 04/29/2025 8:07 PM [facility] Potassium 3.6 3.5 - 5.1 meq/L 04/29/2025 8:07 PM [facility] Chloride 102 98 - 107 meq/L 04/29/2025 8:07 PM [facility] CO2 29 21 - 32 meq/L 04/29/2025 8:07 PM [facility] Calcium 9.6 8.5 - 10.1 mg/dL 04/29/2025 8:07 PM [facility] Glucose 89 74 - 100 mg/dL 04/29/2025 8:07 PM [facility] BUN 12 7 - 18 mg/dL 04/29/2025 8:07 PM [facility] Creatinine 0.54(L) 0.55 - 1.10 mg/dL 04/29/2025 8:07 PM [facility] BUN/Creatinine 22 04/29/2025 8:07 PM [facility] Albumin 4.5 3.4 - 5.0 g/dL 04/29/2025 8:07 PM [facility] Alkaline Phosphatase 97 46 - 116 U/L 04/29/2025 8:07 PM [facility] ALT 12 12 - 78 U/L 04/29/2025 8:07 PM [facility] AST 12(L) 15 - 37 U/L 04/29/2025 8:07 PM [facility] Total Bilirubin 0.3 0.2 - 1.0 mg/dL 04/29/2025 8:07 PM [facility] Protein, Total 8.1 6.4 - 8.2 gm/dL 04/29/2025 8:07 PM [facility] Anion Gap 13 - 22 04/29/2025 8:07 PM EST [facility] A/G Ratio 1.3 04/29/2025 8:07 PM EST [facility] Globulin 3.6 g/dL 04/29/2025 8:07 PM EST [facility] Osmolality Calc 278.6 mOsm/kg 8:07 PM EST [facility] eGFR (mL/min/1.73m2) >60 >=60 mL/min/1.7 3m2 04/29/2025 8:07 PM EST [facility] Comment:ESTIMATED GFR IS NOT ACCURATE CREATININE CLEARANCE IN PREDICTING GLOMERULAR FILTRATION RATE. ESTIMATED GFR IS NOT APPLICABLE FOR DIALYSIS PATIENTS. Blood Venipuncture / Unknown 04/29/2025 7:31 PM EST 04/29/2025 7:40 PM EST us Zara Ross MD LAB BLOOD ORDERABLES Lainey mckay Result [facility] [address] [place] [address] * US OB transvaginal (04/11/2025 2:29 AM [...] Authenticated and Farzad Stiles MD [facility] ORDERABLES Edited Result - Final * (ABNORMAL) Urinalysis w/Microscopic (04/05/2025 11:04 PM EST) Color, UA Yellow 04/05/2025 11:43 PM [facility] Clarity, UA Clear 04/05/2025 11:43 PM [facility] Specific [place], UA 1.025 1.002 - 1.030 04/05/2025 11:43 PM [facility] pH, UA 6.0 5.0 - 9.0 04/05/2025 11:43 PM [facility] Leukocytes, UA Negative Negative 04/05/2025 11:43 PM [facility] Nitrite, UA Negative Negative 04/05/2025 11:43 PM [facility] Protein, UA 1+(A) Negative 04/05/2025 11:43 PM [facility] Glucose, UA Negative Negative 04/05/2025 11:43 PM [facility] Ketones, UA Trace(A) Negative 04/05/2025 11:43 PM [facility] Urobilinogen, UA 0.2 mg/dL Normal 04/05/2025 11:43 PM [facility] Bilirubin, UA Negative Negative 04/05/2025 11:43 PM [facility] Blood, UA 3+(A) Negative 04/05/2025 11:43 PM [facility] RBC, UA 5-10(A) None Seen, Rare /HPF 04/05/2025 11:43 PM [facility] WBC, UA 0-5 None Seen, Occasional , 0-5 /HPF 04/05/2025 11:43 PM [facility] Bacteria, UA 2+(A) None Seen 04/05/2025 11:43 PM EST [facility] Mucus 1+(A) Trace 04/05/2025 11:43 PM EST [facility] SQUAMOUS EPITHELIAL 0-5(A) None Seen, Rare /HPF 04/05/2025 11:43 PM EST [facility] Ca Oxalate [place], UA 2+(A) (none) 04/05/2025 11:43 PM EST [facility] Specimen Source Urine, Clean Catch 04/05/2025 11:43 PM EST [facility] Urine URINE SPECIMEN COLLECTION, CLEAN CATCH / Unknown 04/05/2025 11:04 PM EST 04/05/2025 11:04 PM EST us Keke Gar MD URINE ORDERABLES Final Re sult [facility] [address] [place] [address], [facility] [phone] from Last 3 Months Insurance [facility] Care Teams Asbestos Removal Supervisor Relationship Specialty Start Date End Date Sarika Moyer, FIXED ROUTE BUS OPERATOR [address] [place], [place] [id number] PCP - General Nurse Practitioner 04/05/25
--- OUTSIDE RECORDS SUMMARY | 2025-05-03 08:59 | XMS_ITS | Encounter Summary ---
Author Organization [email or web address] ([place], [place], [place], [place], [place]) Address [address] [place] [address] Care Team Providers Care Carton Catcher Name Role Phone Sarika Moyer TRAINING CONSULTANT Primary Care Provider + Encounter Details Date [...] on filedocumented in this encounter Care Teams Carton Catcher Relationship Specialty Start Date End Date Sarika Moyer APRN [address] [place] [address] PCP - General Nurse Practitioner 04/05/25 documented as of this encounter
--- OUTSIDE RECORDS SUMMARY | 2025-05-03 09:00 | XMS_ITS | Encounter Summary ---
Author Organization [employer] ([place], [place], [place], [place], [place]) Address [address] [place] [address] Care Team Providers Care Field Court Researcher Name Role Phone Sarika Moyer SEMICONDUCTOR ASSEMBLER Primary Care Provider + Encounter Details [...] on filedocumented in this encounter Care Teams Field Court Researcher Relationship Specialty Start Date End Date Sarika Moyer APRN [address] [place] [address] PCP - General Nurse Practitioner 04/05/25 documented as of this encounter
--- OUTSIDE RECORDS SUMMARY | 2025-05-03 09:00 | XMS_ITS | Clinical Summary ---
Author Organization Healthcare Address [address] [place] [id number] Care Team Providers Care Dock Clerk Name Role Phone Sarika Moyer STRIKE OPERATIONS OFFICER Primary Care Provider + Allergies Active Allergy Reactions Criticality Noted Date Comments Escitalopram Anaphylaxis High 03/27/2025 Robitussin Dm Max Day-Night Anxiety Low 03/27/20 Medications No known medications Active Problems Comments Yes No known active problems Encounters Date Type Department Care Team Description 03/27/2025 8:35 PM EDT - 03/28/2025 1:22 AM EDT Emergency [facility] Emergency Department [address] [place] [phone] Rose Cortes MD of unknown anatomic location (Primary Dx) Discharge Disposition: Home or Self Care 03/27/2025 Travel 03/17/2025 Telephone Obstetrics & Gynecology [address] [place] [phone] Chiki Cardenas MD from Last 3 [...] 10/19/2024 10/19/2014, 05/21/2006, 08/26/2003, Additional history exists [id number] Vaccine ( - season) 2025 UKY-Influenza Vaccine [...] Reactive Non Reactive 03/27/2025 9:26 PM EDT [facility] Comment:Screening for HIV 1 & 2 antibodies, and P24 antigen is NONREACTIVE. No confirmatory testing is required. Blood Venous blood specimen / Unknown Venipuncture / Unknown 03/27/2025 8:31 PM EDT 03/27/2025 8:44 PM EDT Rose Cortes MD LAB BLOOD ORDERABLES Final Resu lt [facility] [address] [place] [address] * Hepatitis C Antibody - ED (03/27/2025 8:31 PM EDT) Hepatitis C Antibody Negative Negative 03/27/2025 9:26 PM EDT [facility] Blood Venous blood specimen / Unknown Venipuncture / Unknown 03/27/2025 8:31 PM EDT 03/27/2025 8:44 PM EDT us Rose Cortes MD LAB BLOOD ORDERABLES Final Resu lt [facility] [address] [place] [address] * (ABNORMAL) CBC w/diff (03/27/2025 8:31 PM EDT) Pathologist [facility] WBC Count 11.76(H) 3.70 - 10.30 10*3/uL LAB HEMATOLOGY METHOD 03/27/2025 8:44 PM EDT [facility] RBC Count 4.82 3.90 - 5.20 10*6/uL LAB HEMATOLOGY METHOD 03/27/2025 8:44 PM EDT [facility] HGB 14.2 11.2 - 15.7 g/dL LAB HEMATOLOGY METHOD 03/27/2025 8:44 PM EDT [facility] HCT 39.9 34.0 - 45.0 % LAB HEMATOLOGY METHOD 03/27/2025 8:44 PM EDT [facility] Platelet Count 523(H) 155 - 369 10*3/uL LAB HEMATOLOGY METHOD 03/27/2025 8:44 PM EDT [facility] MCV 83 79 - 98 fL LAB HEMATOLOGY METHOD 03/27/2025 8:44 PM EDT [facility] MCH 29.5 26.0 - 32.0 pg LAB HEMATOLOGY METHOD 03/27/2025 8:44 PM EDT [facility] MCHC 35.6(H) 30.7 - 35.5 g/dL LAB HEMATOLOGY METHOD 03/27/2025 8:44 PM EDT [facility] RDW 12.2 11.5 - 14.5 % LAB HEMATOLOGY METHOD 03/27/2025 8:44 PM EDT [facility] MPV 9.3 8.8 - 12.5 fL LAB HEMATOLOGY METHOD 03/27/2025 8:44 PM EDT [facility] nRBC 0.0 <=0.0 per 100 WBCs LAB HEMATOLOGY METHOD 03/27/2025 8:44 PM EDT [facility] Differential Type Automated LAB HEMATOLOGY METHOD 03/27/2025 8:44 PM EDT [facility] Neutrophils % 71 % LAB HEMATOLOGY METHOD 03/27/2025 8:44 PM EDT [facility] Lymphocytes % 25 % LAB HEMATOLOGY METHOD 03/27/2025 8:44 PM EDT [facility] Monocytes % 4 % LAB HEMATOLOGY METHOD 03/27/2025 8:44 PM EDT [facility] Eosinophils % 0 % LAB HEMATOLOGY METHOD 03/27/2025 8:44 PM EDT [facility] Basophils % 0 % LAB HEMATOLOGY METHOD 03/27/2025 8:44 PM EDT [facility] Immature Granulocytes % 0 % LAB HEMATOLOGY METHOD 03/27/2025 8:44 PM EDT [facility] Neutrophils Absolute 8.17(H) 1.60 - 6.10 10*3/uL LAB HEMATOLOGY METHOD 03/27/2025 8:44 PM EDT [facility] Lymphocytes Absolute 2.96 1.20 - 3.90 10*3/uL LAB HEMATOLOGY METHOD 03/27/2025 8:44 PM EDT [facility] Monocytes Absolute 0.52 0.30 - 0.90 10*3/uL LAB HEMATOLOGY METHOD 03/27/2025 8:44 PM EDT [facility] Eosinophils Absolute 0.03 0.00 - 0.50 10*3/uL LAB HEMATOLOGY METHOD 03/27/2025 8:44 PM EDT [facility] Basophils Absolute 0.05 0.00 - 0.10 10*3/uL LAB HEMATOLOGY METHOD 03/27/2025 8:44 PM EDT [facility] Immature Granulocytes Absolute 0.03 0.00 - 0.06 10*3/uL LAB HEMATOLOGY METHOD 03/27/2025 8:44 PM EDT [facility] Blood Venous blood specimen / Unknown Venipuncture / Unknown 03/27/2025 8:31 PM EDT 03/27/2025 8:41 PM EDT Narrative [facility] - 03/27/2025 8:44 PM EDT Therapeutic decision making should be based on absolute values, rather than percentages. Rose Cortes MD LAB BLOOD ORDERABLES Final Resu lt Performing Organization Address City/[facility]/ZIP Co de Phone Number [facility] [address] [place] [address] * Type and screen (03/27/2025 8:31 PM [...] TEST ORDERABLES Final Result Performing Organization Address [facility] de Phone Number BLOOD BANK [address] [place] [address] * (ABNORMAL) hCG, quantitative, (03/27/2025 8:31 PM EDT) hCG, Total Beta 626.2(H) <5 mIU/mL 03/27/2025 9:[address] [facility] Blood Venous blood specimen / Unknown Venipuncture / Unknown 03/27/2025 8:31 PM EDT 03/27/2025 8:41 PM EDT Narrative [facility] - 03/27/2025 9:22 PM [...] MD LAB BLOOD ORDERABLES Final Resu lt [facility] [address] [place] [address] * (ABNORMAL) CMP (03/27/2025 8:31 PM EDT) Glucose, Plasma 96 74 - 99 mg/dL 03/27/2025 9:22 PM EDT [facility] BUN, Plasma 11 7 - 21 mg/dL 03/27/2025 9:22 PM EDT [facility] Creatinine, Plasma 0.48(L) 0.60 - 1.10 mg/dL 03/27/2025 9:22 PM EDT [facility] BUN/Creatinine Ratio 23 03/27/2025 9:22 PM EDT [facility] Sodium, Plasma 136 136 - 145 mmol/L 03/27/2025 9:22 PM EDT [facility] Potassium, Plasma 3.1(L) 3.6 - 4.9 mmol/L 03/27/2025 9:22 PM EDT [facility] Chloride, Plasma 100 97 - 107 mmol/L 03/27/2025 9:22 PM EDT [facility] CO2, Plasma 20(L) 22 - 29 mmol/L 03/27/2025 9:22 PM EDT [facility] Anion Gap 16 6 - 16 mmol/L 03/27/2025 9:22 PM EDT [facility] Total Calcium, Plasma 9.8 8.9 - 10.2 mg/dL 03/27/2025 9:22 PM EDT [facility] Total Protein 7.7 6.3 - 7.9 g/dL 03/27/2025 9:22 PM EDT [facility] Albumin, Plasma 4.9 3.5 - 5.2 g/dL 03/27/2025 9:22 PM EDT [facility] AST, Plasma 17 10 - 35 U/L 03/27/2025 9:22 PM EDT [facility] ALT, Plasma 8(L) 10 - 35 U/L 03/27/2025 9:22 PM EDT [facility] Alkaline Phosphatase, Plasma 102 35 - 104 U/L 03/27/2025 9:22 PM EDT [facility] Total Bilirubin, Plasma 1.3(H) 0.2 - 1.1 mg/dL 03/27/2025 9:22 PM EDT [facility] eGFRcr 137.5 mL/min/1.7 3m*2 03/27/2025 9:22 PM EDT [facility] Comment:Reported eGFRcr in m L/min/1.73m2 is based the CKD-EPI 2020 equation that does not use a race coefficient. Blood Venous blood specimen / Unknown Venipuncture / Unknown 03/27/2025 8:31 PM EDT 03/27/2025 8:41 PM EDT us Rose Cortes MD LAB BLOOD ORDERABLES Final Resu lt [facility] [address] [place] [address] from Last 3 Months Insurance [facility] MEDICA[facility] Care Teams Dock Clerk Relationship Specialty Start Date End Date Sarika Moyer APRN [address] [place] [phone] PCP - General 10/14/20
== END 2025-05-03 23:59 | disposition home or self-care (01) ==
LOC: LAB 08:42
PROVIDERS: PCP Nurse Practitioner Family; Visit Provider Obstetrics & Gynecology
DX: O00.90 Unspecified ectopic pregnancy without intrauterine pregnancy (principal); Z3A.00 Weeks of gestation of pregnancy not specified
CPT/HCPCS: 36415; 84702

== ENCOUNTER 2025-05-03 18:45 | Emergency (ER) | payer OTHER, SELFPAY ==
--- OUTSIDE RECORDS SUMMARY | 2025-03-27 19:35 | XMS_ITS | Encounter Summary ---
Author Organization Healthcare Address [address] [place] [address] Care Team Providers Care Bagel Maker Name Role Phone Sarika Moyer ISAIAH Primary Care Provider + Reason for Visit * Reason Comments Pelvic Pain Encounter Details Date Type Department Care Team (Late st Contact Info) Description 03/27/2025 8:35 PM EDT - 03/28/2025 1:22 AM EDT Emergency [facility] Department [address] [place] [address] Rose Cortes MD [address] [place] [address] of unknown anatomic location (Primary Dx) Discharge [...] as able. Please increase your water intake. [place] use of warm and/or cold compresses. Primary [...] here is available to you via the [place]. com[employer] c[employer] Internet portal. Please make sure that you [...] 24 y.o. with PUL being followed at [facility] who presents for RLQ pain. Patient reports that this is her first . She was having her beta hCG trended for pregnancyof unknown location, with the trend showing an inappropriate rise. Per [facility] records reviewed by ED MICHAEL, on 03/25/25 beta hCG was 568, down from 701. At this time patient received a dose of IM methotrexate. Yesterday morning/afternoon, patient reports that she had increased right lower quadrant/pelvic pain with associated nausea. At [facility] yesterday, beta hCG was found to [...] - Patient with PUL being followed at [facility] - Beta hCG trend shown to be inappropriately rising > 03/17: 258 > 03/19: 276 > 03/20: 370 > 03/21: 342 > 03/24: 701 > 03/25: 568 -- Dose of methotrexate 03/25 -- > 03/27: 543 - Pt with increased RLQ pain 03/27 prompting her to present first to [facility] where beta was noted to have decreased slightly from 03/25. TVUS not directly reviewed, however records indicatea 1.5 cm unknown structure was seen in the R adnexa. - Patient was discharged home from [facility], but due to persistent pain presented [...] with patient that her beta hCG at [facility] today was encouraging. Explained that often [...] Dispo: stable for discharge home from a SAFETY RELIEF VALVE TECHNICIAN standpoint. Thank you for including us in the care of this patient. This consult was staffed with Dr. Bowers. Please message on-call SAFETY RELIEF VALVE TECHNICIAN resident via [employer] Secure Chat or page [phone] (M-F 6a-6p) or [phone] (nights/weekends) for questions or concerns regarding this patient's care. Ivon Marmolejo MD PGY3 Obstetrics and Gynecology [1] Past Medical History: Diagnosis Date Other specified health status No pertinent past medical history [2] Past Surgical History: Procedure Laterality Date DENTAL SURGERY N/A Dental surgery from [facility] TONSILLECTOMY N/A Tonsillectomy from [facility] [3] Family History Problem Relation Name Age [...] SOA, and urinary symptoms. Medical records from [facility] reviewed: 03/26/2025 -- HCG trends recorded (03/17 -- 258, 03/19--276. 03/20--370. 03/21--342. 03/24--701. 03/25--568.), documented a 1gm Methotrexate given IM on 03/25/2025. 03/27/2025 -- TVUS with1.5cm unknown structure in the right adenxa, 03/27 -- HCG 543. History provided by: Patient interpreter translator used: No Patient History Past Medical History[1] [...] does not include homicidal or suicidal ideation. [place] Coma Scale Score: 15 ED Course & [...] Abnormality Status --------- ------ ED HIV 1/2 Antibody/Anti...[[id number]] Normal Final result Please view results for [...] 11:57 PM MDM: Patient seen by the [facility] physician and followed-up by myself. In summary: NARRATIVE: Patient is a 24-year-old female who presents with complaints of diffuse right-sided abdominal discomfort. Has been seen multiple times at [facility] and had HCGs done. Has not had an appropriate doubling. Was given a dose of IM methotrexate a couple of days ago. Had an ult rasound done earlier today which did still document a 1.5 cm mass in the right adnexa and hCG in the mid 500s. Patient otherwise had a reassuring exam and H&H and was discharged for outpatient machine sneller follow-up. Was offered some hydroxyzine at that time, but deferred. Patient presented to our ER for 2nd opinion of her own accord. H&H stable. HCG still in the 600range. Transvaginal ultrasound does not note a right adnexal mass at this time. Given unclear hCG trend and patient concern, machine sneller was consulted. Patient signed out pending final machine sneller recommendations. Clinical Impressions as of 03/28/2533 of [...] mg Oral Given Ivana Loredo PA-C EMR Dragon/Yard Supervisor disclaimer: Much of this encounter note is an electronic bearing machine operator of spoken language to printed text. Electronic bearing machine operator of spoken language may permit [...] as able. Please increase your water intake. [place] use of warm and/or cold compresses. Primary [...] here is available to you via the [place]. com[employer] Internet portal. Please make sure that you are registered for access to this. Disposition Discharge AVS (Georgian Snapshot) - Printed 03/28/2025 Follow-Ups Go to Sarika Moyer APRN; As needed Follow up with [facility] (Obstetrics and Gynecology) - Larry Enrique APRN Cosigned by Rsoe Cortes MD at 03/28/2025 10:27 AM EDT [...] Reactive Non Reactive 03/27/2025 9:26 PM EDT [facility] Comment:Screening for HIV 1 & 2 antibodies, and P24 antigen is NONREACTIVE. No confirmatory testing is required. Blood Venous blood specimen / Unknown Venipuncture / Unknown 03/27/2025 8:31 PM EDT 03/27/2025 8:44 PM EDT Result [facility] us Rose Cortes MD LAB BLOOD ORDERABLES Final Resu lt [facility] [address] [place] [address] * Hepatitis C Antibody - ED (03/27/2025 8:31 PM EDT) Hepatitis C Antibody Negative Negative 03/27/2025 9:26 PM EDT [facility] Blood Venous blood specimen / Unknown Venipuncture / Unknown 03/27/2025 8:31 PM EDT 03/27/2025 8:44 PM EDT Result [facility] us Rose Cortes MD LAB BLOOD ORDERABLES Final Resu lt [facility] [address] [place] [address] * Type and screen (03/27/2025 8:31 PM [...] TEST ORDERABLES Final Result Performing Organization Address [facility] de Phone Number BLOOD BANK [address] [place] [address], [place] * (ABNORMAL) hCG, quantitative, (03/27/2025 8:31 PM EDT) hCG, Total Beta 626.2(H) <5 mIU/mL 03/27/2025 9:22 PM EDT [facility] Blood Venous blood specimen / Unknown Venipuncture / Unknown 03/27/2025 8:31 PM EDT 03/27/2025 8:41 PM EDT Narrative [facility] - 03/27/2025 9:22 PM EDT [...] ORDERABLES Final Resu lt Performing Organization Address City/[facility]/ZIP Co de Phone Number [facility] [address] [place] [address] * (ABNORMAL) CBC w/diff (03/27/2025 8:31 PM EDT) WBC Count 11.76(H) 3.70 - 10.30 10*3/uL LAB HEMATOLOGY METHOD 03/27/2025 8:44 PM EDT [facility] RBC Count 4.82 3.90 - 5.20 10*6/uL LAB HEMATOLOGY METHOD 03/27/2025 8:44 PM EDT [facility] HGB 14.2 11.2 - 15.7 g/dL LAB HEMATOLOGY METHOD 03/27/2025 8:44 PM EDT [facility] HCT 39.9 34.0 - 45.0 % LAB HEMATOLOGY METHOD 03/27/2025 8:44 PM EDT [facility] Platelet Count 523(H) 155 - 369 10*3/uL LAB HEMATOLOGY METHOD 03/27/2025 8:44 PM EDT [facility] MCV 83 79 - 98 fL LAB HEMATOLOGY METHOD 03/27/2025 8:44 PM EDT [facility] MCH 29.5 26.0 - 32.0 pg LAB HEMATOLOGY METHOD 03/27/2025 8:44 PM EDT [facility] MCHC 35.6(H) 30.7 - 35.5 g/dL LAB HEMATOLOGY METHOD 03/27/2025 8:44 PM EDT [facility] RDW 12.2 11.5 - 14.5 % LAB HEMATOLOGY METHOD 03/27/2025 8:44 PM EDT [facility] MPV 9.3 8.8 - 12.5 fL LAB HEMATOLOGY METHOD 03/27/2025 8:44 PM EDT [facility] nRBC 0.0 <=0.0 per 100 WBCs LAB HEMATOLOGY METHOD 03/27/2025 8:44 PM EDT [facility] Differential Type Automated LAB HEMATOLOGY METHOD 03/27/2025 8:44 PM EDT [facility] Neutrophils % 71 % LAB HEMATOLOGY METHOD 03/27/2025 8:44 PM EDT [facility] Lymphocytes % 25 % LAB HEMATOLOGY METHOD 03/27/2025 8:44 PM EDT [facility] Monocytes % 4 % LAB HEMATOLOGY METHOD 03/27/2025 8:44 PM EDT [facility] Eosinophils % 0 % LAB HEMATOLOGY METHOD 03/27/2025 8:44 PM EDT [facility] Basophils % 0 % LAB HEMATOLOGY METHOD 03/27/2025 8:44 PM EDT [facility] Immature Granulocytes % 0 % LAB HEMATOLOGY METHOD 03/27/2025 8:44 PM EDT [facility] Neutrophils Absolute 8.17(H) 1.60 - 6.10 10*3/uL LAB HEMATOLOGY METHOD 03/27/2025 8:44 PM EDT [facility] Lymphocytes Absolute 2.96 1.20 - 3.90 10*3/uL LAB HEMATOLOGY METHOD 03/27/2025 8:44 PM EDT [facility] Monocytes Absolute 0.52 0.30 - 0.90 10*3/uL LAB HEMATOLOGY METHOD 03/27/2025 8:44 PM EDT [facility] Eosinophils Absolute 0.03 0.00 - 0.50 10*3/uL LAB HEMATOLOGY METHOD 03/27/2025 8:44 PM EDT [facility] Basophils Absolute 0.05 0.00 - 0.10 10*3/uL LAB HEMATOLOGY METHOD 03/27/2025 8:44 PM EDT [facility] Immature Granulocytes Absolute 0.03 0.00 - 0.06 10*3/uL LAB HEMATOLOGY METHOD 03/27/2025 8:44 PM EDT [facility] Blood Venous blood specimen / Unknown Venipuncture / Unknown 03/27/2025 8:31 PM EDT 03/27/2025 8:41 PM EDT Narrative [facility] - 03/27/2025 8:44 PM EDT Therapeutic decision making should be based on absolute values, rather than percentages. us Rose Cortes MD LAB BLOOD ORDERABLES Final Resu lt [facility] [address] [place] [address] * (ABNORMAL) CMP (03/27/2025 8:31 PM EDT) Glucose, Plasma 96 74 - 99 mg/dL 03/27/2025 9:22 PM EDT [facility] BUN, Plasma 11 7 - 21 mg/dL 03/27/2025 9:22 PM EDT [facility] Creatinine, Plasma 0.48(L) 0.60 - 1.10 mg/dL 03/27/2025 9:22 PM EDT [facility] BUN/Creatinine Ratio 23 03/27/2025 9:22 PM EDT [facility] Sodium, Plasma 136 136 - 145 mmol/L 03/27/2025 9:22 PM EDT [facility] Potassium, Plasma 3.1(L) 3.6 - 4.9 mmol/L 03/27/2025 9:22 PM EDT [facility] Chloride, Plasma 100 97 - 107 mmol/L 03/27/2025 9:22 PM EDT [facility] CO2, Plasma 20(L) 22 - 29 mmol/L 03/27/2025 9:22 PM EDT [facility] Anion Gap 16 6 - 16 mmol/L 03/27/2025 9:22 PM EDT [facility] Total Calcium, Plasma 9.8 8.9 - 10.2 mg/dL 03/27/2025 9:22 PM EDT [facility] Total Protein 7.7 6.3 - 7.9 g/dL 03/27/2025 9:22 PM EDT [facility] Albumin, Plasma 4.9 3.5 - 5.2 g/dL 03/27/2025 9:22 PM EDT [facility] AST, Plasma 17 10 - 35 U/L 03/27/2025 9:22 PM EDT [facility] ALT, Plasma 8(L) 10 - 35 U/L 03/27/2025 9:22 PM EDT [facility] Alkaline Phosphatase, Plasma 102 35 - 104 U/L 03/27/2025 9:22 PM EDT [facility] Total Bilirubin, Plasma 1.3(H) 0.2 - 1.1 mg/dL 03/27/2025 9:22 PM EDT [facility] eGFRcr 137.5 mL/min/1.7 3m*2 03/27/2025 9:22 PM EDT [facility] Comment:Reported eGFRcr in m L/min/1.73m2 is based the CKD-EPI 2020 equation that does not use a race coefficient. Blood Venous blood specimen / Unknown Venipuncture / Unknown 03/27/2025 8:31 PM EDT 03/27/2025 8:41 PM EDT us Rose Cortes MD LAB BLOOD ORDERABLES Final Resu lt [facility] [address] [place] [address] documented in this encounter Visit Diagnoses Diagnosis [...] Foss) documented in this encounter Care Teams Bagel Maker Relationship Specialty Start Date End Date Sarika Moyer APRN [address] [place] [id number] PCP - General 10/14/20 documented as of this encounter
--- OUTSIDE RECORDS SUMMARY | 2025-04-05 22:43 | XMS_ITS | Encounter Summary ---
Author Organization [employer] ([place], [place], [place], [place], [place]) Address [address] [place] [address] Care Team Providers Care Senior Business Consultant Name Role Phone Sarika Moyer APRN Primary Care Provider + Reason for Visit * Reason Comments Abdominal Pain Pt was dx with ectop ic 12 days ago, pt presents with right sided abd pain as well as right sided shoulder and arm pain. Pt states she is unsure if it is anxiety or what is causing the pain Encounter Details Date Type Department Care Team (Late st Contact Info) Description 04/05/2025 10:43 PM EST - 04/06/2025 2:31 AM EST Emergency [facility] Emergency Department [address] [place] [phone] Keke Gar MD [address] [place] [address] Ectopic (Primary Dx) Discharge Disposition: Home or Self Care Social History Tobacco Use Types Packs/Day Years Used Date Smoking Tobacco: Every Day Cigarettes Smokeless Tobacco: Never Tobacco Cessation:Ready to Q uit: Not Asked Comments:Pt vapes Alcohol Use Standard Drinks/Week Comments Never 0 (1 standard drink = 0.6 oz pur e alcohol) Comments Unknown Sex and Gender Information Value Date Recorded Sex Assigned at Not on file Legal Sex Female 5:08 PM CDT Gender Identity Not on file Sexual Orientation Not on file documented as of this encounter Last Filed Vital Signs Vital Sign Reading Time Taken Comments Blood Pressure 122/78 04/06/2025 2:30 AM EST Pulse 78 04/06/2025 2:30 AM EST Temperature 36.4 C (97.5 F) 04/05/2025 10:45 PM EST Respiratory Rate 16 04/05/2025 10:45 PM EST Oxygen Saturation 98% 04/06/2025 2:30 AM EST Inhaled Oxygen Concentration - - Weight 41.7 kg (92 lb) 04/05/2025 10:45 PM EST Height 144.8 cm (4' 9 ) 04/05/2025 10:45 PM EST Body Mass Index 19.91 04/05/2025 10:45 PM EST documented in this encounter Discharge Instructions * Attachments The following attachments cannot be sent through Care Everywhere. * Ectopic [id number] (Serbian) documented in this encounter ED Notes * Keke Gar MD - 04/05/2025 10:53 PM EST Subjective Chief Complaint: Abdominal Pain (Pt was dx with ectopic 12 days ago, pt presents with right sided abd pain as well as right sided shoulder and arm pain. Pt states she is unsure if it is anxiety or what is causing the pain) HPI 24 yo recently diagnosed with an ectopic in the right adnexa p/w RLQ abdominal pain that worsened today. She also has pain in his right shoulder and arm. It started after eating pizza. She was given methotrexate on 03/25 and since then her quant has been dropping. She has had vaginal bleeding and cramping. Patient History Past Medical History: Diagnosis Date PVC (premature ventricular contraction) No past surgical history on file. No family history on file. Social History Tobacco Use Smoking status: Every Day Types: Cigarettes Smokeless tobacco: Never Tobacco comments: Pt vapes Substance Use Topics Alcohol use: Never I reviewed the HPI, ROS and PFSH documentation recorded by others in the medical record and supplemented my note as needed. Review of Systems Review of Systems Constitutional: Negative for fever. Gastrointestinal: Positive for abdominal pain. Negative for nausea and vomiting. Genitourinary: Positive for vaginal bleeding. Negative for dysuria. All other systems reviewed and are negative. Physical Exam ED Triage Vitals [04/05/252] Encounter Vitals Group BP (!) 128/90 Girls Systolic BP Percentile Girls Diastolic BP Percentile Boys Systolic BP Percentile Boys Diastolic BP Percentile Pulse 81 Resp 16 Temp 97.5 ??F (36.4 ??C) Temp src SpO2 98 % Weight 41.7 kg (92 lb) Height 1.448 m (4' 9 ) Head Circumference Peak Flow Pain Score Four Pain Loc Pain Education Exclude from Growth Chart Physical Exam Vitals and nursing note reviewed. Constitutional: Appearance: She is well-developed. HENT: Head: Normocephalic and atraumatic. Eyes: General: No scleral icterus. Cardiovascular: Rate and Rhythm: Normal rate and regular rhythm. Pulmonary: Effort: Pulmonary effort is normal. Breath sounds: Normal breath sounds. Abdominal: Palpations: Abdomen is soft. Tenderness: There is no abdominal tenderness. Skin: General: Skin is warm and dry. Neurological: Mental Status: She is alert and oriented to person, place, and time. Psychiatric: Mood and Affect: Mood normal. Behavior: Behavior normal. Neurological Exam Mental Status Alert. Oriented to person, place, and time. Ortho Exam ED Course & MDM Medications - No data to display Results for orders placed or performed during the hospital encounter of 04/05/25 CBC with Auto Diff Result Value Ref Range WBC 9.8 4.8 - 10.8 K/??L RBC 4.72 3.50 - 5.20 M/??L Hemoglobin 13.8 11.7 - 15.8 GM/DL Hematocrit 40.9 35.0 - 47.0 % MCV 87 81 - 101 fL MCH 29.2 27.0 - 34.0 pg MCHC 33.7 32.0 - 36.0 GM/DL RDW 13.1 11.5 - 14.5 % Platelets 511 (H) 150 - 400 K/CU MM MPV 9.2 (L) 9.4 - 12.4 fL Nucleated Red Blood Cell 0.0 0 - 0.2 % % Neutros 65 37 - 80 % % Lymphs 27 10 - 50 % % Monos 6 5 - 13 % % Eos 0.8 0.0 - 7.0 % % Baso 1 0 - 3 % NRBC Absolute <0.01 0 - 0.012 K/ul # Neutros 6.35 2.00 - 6.90 K/??L # Lymphs 2.68 0.60 - 3.40 K/??L # Monos 0.62 0.00 - 0.90 K/??L # Eos 0.08 0.00 - 0.70 K/??L # Baso 0.05 0.00 - 0.20 K/??L % Imm Grans 0.20 % # IG 0.02 (H) 0.00 - 0.00 K/uL Comprehensive metabolic panel Result Value Ref Range Sodium 140 136 - 145 meq/L Potassium 3.3 (L) 3.5 - 5.1 meq/L Chloride 102 98 - 107 meq/L CO2 25 21 - 32 meq/L Calcium 9.5 8.5 - 10.1 mg/dL Glucose 106 (H) 74 - 100 mg/dL BUN 12 7 - 18 mg/dL Creatinine 0.60 0.55 - 1.10 mg/dL BUN/Creatinine 20 Albumin 4.5 3.4 - 5.0 g/dL Alkaline Phosphatase 91 46 - 116 U/L ALT 10 (L) 12 - 78 U/L AST 14 (L) 15 - 37 U/L Total Bilirubin 0.3 0.2 - 1.0 mg/dL Protein, Total 8.0 6.4 - 8.2 gm/dL Anion Gap 16 11 - 22 A/G Ratio 1.3 Globulin 3.5 g/dL Osmolality Calc 279.6 mOsm/kg eGFR (mL/min/1.73m2) >60 >=60 mL/min/1.73m2 Urinalysis w/Microscopic Result Value Ref Range Color, UA Yellow Clarity, UA Clear Specific Dexter, UA 1.025 1.002 - 1.030 pH, UA 6.0 5.0 - 9.0 Leukocytes, UA Negative Negative Nitrite, UA Negative Negative Protein, UA 1+ (A) Negative Glucose, UA Negative Negative Ketones, UA Trace (A) Negative Urobilinogen, UA 0.2 mg/dL Normal Bilirubin, UA Negative Negative Blood, UA 3+ (A) Negative RBC, UA 5-10 (A) None Seen, Rare /HPF WBC, UA 0-5 None Seen, Occasional , 0-5 /HPF Bacteria, UA 2+ (A) None Seen Mucus 1+ (A) Trace SQUAMOUS EPITHELIAL 0-5 (A) None Seen, Rare /HPF Ca Oxalate [place], UA 2+ (A) (none) Specimen Source Urine, Clean Catch US OB transvaginal Final Result Addendum (preliminary) ADDENDUM REPORT ADDENDUM: This report was discussed with Cassandra Lewis RN on Apr 06, 2025 02:04:00 EST. Final Authenticated and Course as of 04/06/25 0210 Mon Apr 05, 2025 2313 Quant at [facility] J today 180 [CD] Tue Apr 06, [address] Maya with OB. Since no free fluid, but can follow up with her doctor. Strict return precautions discussed. [CD] ED Course User Index [CD] Keke Gar MD Procedures Medical Decision Making My differential includes but is not limited to the following severe or life threatening etiologies:ruptured ectopic, ovarian torsion, UTI, appendicitis Amount and/or Complexity of Data Reviewed Labs: ordered. Radiology: ordered. Assessment & Plan Clinical Impression Diagnosis Comment Added By Time Added Ectopic Keke Gar MD 04/06/2025 2:10 AM Disposition Discharge [1] - 04/06/2025 2:09 AM New Prescriptions No medications on file Contact information for follow-up Your doctor Call today Next Steps: Follow up NGOLOGIST documented in this encounter Plan of Treatment Not on file documented as of this encounter Procedures Procedure Name Priority Date/Time Associated Diagnosis Comments US OB TRANSVAGINAL STAT 04/06/2025 12 :35 AM EST CBC W/ AUTO DIFF STAT 04/05/2025 11:3 0 PM EST COMPREHENSIVE METABOLIC PANEL STAT 04/05/2025 11:30 PM EST URINALYSIS W/ MICROSCOPIC STAT 04/05/2025 11:04 PM EST documented in this encounter Results * US OB transvaginal (04/06/2025 12:35 AM EST) Anatomical Region Laterality Modality Pelvis Ultrasound 04/06/2025 2:00 AM EST Addenda Addendum by Iliana Cheatham MD on 04/06/2025 3:04 AM EST ADDENDUM REPORT ADDENDUM: This report was discussed with Cassandra Lewis RN on Apr 06, 2025 02:04:00 EST. Impressions 04/06/2025 2:00 AM EST Authenticated and Narrative 04/06/2025 2:00 AM EST FINAL REPORT TECHNIQUE: null CLINICAL HISTORY: ABDOMINAL PAIN today, pain has resolved per pt. pt states confirmed ectopic from outside facility and has been given methotrexate. No BHCG drawn at this facility per provider request. Pt states BHCG from outside facility was 180 today and 626 from 03/27/25. COMPARISON: null FINDINGS: Ultrasound obstetric transvaginal Comparison: None provided. Findings: Normal-sized uterus 6.6 x 3.2 x 3.9 cm. Normal thickness of endometrial stripe 9 mm. Minimal heterogeneity of the endometrial stripe but no hyperemia of the endometrial stripe itself. Slight hyperemia peripherally in the uterus. No intrauterine seen. No focal uterine mass seen. Normal-size of ovaries right 2.8 x 2.1 x 2.6 cm, 8.6 mL volume, and left 2.8 x 2.3 x 1.4 cm, 5.1 mL volume. Normal-sized follicles in bilateral ovaries. Blood flow noted at periphery of bilateral ovaries probably technical. If ovarian torsion is being clinically considered, close follow-up preferably under direct supervision of radiologist recommended. Apparent 2.8 x 1.7 x 1.3 cm lobulated intermediate to slightly high echogenicity lesion in right adnexa adjacent to but apparently separate from ovary probably related to known ectopic . Direct comparison with prior studies, correlation with beta hCG level, and gynecologic consultation recommended. Procedure Note Iliana Cheatham MD - 04/06/2025 FINAL REPORT TECHNIQUE: null CLINICAL HISTORY: ABDOMINAL PAIN today, pain has resolved per pt. pt states confirmed ectopic from outside facility and has been given methotrexate. No BHCG drawn at this facility per provider request. Pt states BHCG from outside facility was 180 today and 626 from 03/27/25. COMPARISON: null FINDINGS: Ultrasound obstetric transvaginal Comparison: None provided. Findings: Normal-sized uterus 6.6 x 3.2 x 3.9 cm. Normal thickness of endometrial stripe 9 mm. Minimal heterogeneity of the endometrial stripe but no hyperemia of the endometrial stripe itself. Slight hyperemia peripherally in the uterus. No intrauterine seen. No focal uterine mass seen. Normal-size of ovaries right 2.8 x 2.1 x 2.6 cm, 8.6 mL volume, and left 2.8 x 2.3 x 1.4 cm, 5.1 mL volume. Normal-sized follicles in bilateral ovaries. Blood flow noted at periphery of bilateral ovaries probably technical. If ovarian torsion is being clinically considered, close follow-up preferably under direct supervision of radiologist recommended. Apparent 2.8 x 1.7 x 1.3 cm lobulated intermediate to slightly high echogenicity lesion in right adnexa adjacent to but apparently separate from ovary probably related to known ectopic . Direct comparison with prior studies, correlation with beta hCG level, and gynecologic consultation recommended. IMPRESSION: Authenticated and Keke Gar MD [facility] US ORDERABLES Edited Result - Final * (ABNORMAL) Comprehensive metabolic panel (04/05/2025 11:30 PM EST) Sodium 140 136 - 145 meq/L 04/06/2025 12:03 AM [facility] Potassium 3.3(L) 3.5 - 5.1 meq/L 04/06/2025 12:03 AM [facility] Chloride 102 98 - 107 meq/L 04/06/2025 12:03 AM [facility] CO2 25 21 - 32 meq/L 04/06/2025 12:03 AM [facility] Calcium 9.5 8.5 - 10.1 mg/dL 04/06/2025 12:03 AM [facility] Glucose 106(H) 74 - 100 mg/dL 04/06/2025 12:03 AM [facility] BUN 12 7 - 18 mg/dL 04/06/2025 12:03 AM [facility] Creatinine 0.60 0.55 - 1.10 mg/dL 04/06/2025 12:03 AM [facility] BUN/Creatinine 20 04/06/2025 12:03 AM [facility] Albumin 4.5 3.4 - 5.0 g/dL 04/06/2025 12:03 AM [facility] Alkaline Phosphatase 91 46 - 116 U/L 04/06/2025 12:03 AM [facility] ALT 10(L) 12 - 78 U/L 04/06/2025 12:03 AM [facility] AST 14(L) 15 - 37 U/L 04/06/2025 12:03 AM [facility] Total Bilirubin 0.3 0.2 - 1.0 mg/dL 04/06/2025 12:03 AM [facility] Protein, Total 8.0 6.4 - 8.2 gm/dL 04/06/2025 12:03 AM [facility] Anion Gap 16 11 - 22 04/06/2025 12:03 AM [facility] A/G Ratio 1.3 04/06/2025 12:03 AM [facility] Globulin 3.5 g/dL 04/06/2025 12:03 AM [facility] Osmolality Calc 279.6 mOsm/kg 12:03 AM [facility] eGFR (mL/min/1.73m2) >60 >=60 mL/min/1.7 3m2 04/06/2025 12:03 AM [facility] Comment:ESTIMATED GFR IS NOT ACCURATE CREATININE CLEARANCE IN PREDICTING GLOMERULAR FILTRATION RATE. ESTIMATED GFR IS NOT APPLICABLE FOR DIALYSIS PATIENTS. Blood Venipuncture / Unknown 04/05/2025 11:30 PM EST 04/05/2025 11:41 PM EST us Keke Gar MD LAB BLOOD ORDERABLES Lainey mckay Result [facility] [address] [id number] [phone] * (ABNORMAL) CBC with Auto Diff (04/05/2025 11:30 PM EST) WBC 9.8 4.8 - 10.8 K/ L 04/05/2025 11:45 PM [facility] RBC 4.72 3.50 - 5.20 M/ L 04/05/2025 11:45 PM [facility] Hemoglobin 13.8 11.7 - 15.8 GM/DL 04/05/2025 11:45 PM [facility] Hematocrit 40.9 35.0 - 47.0 % 04/05/2025 11:45 PM [facility] MCV 87 81 - 101 fL 04/05/2025 11:45 PM [facility] MCH 29.2 27.0 - 34.0 pg 04/05/2025 11:45 PM [facility] MCHC 33.7 32.0 - 36.0 GM/DL 04/05/2025 11:45 PM [facility] RDW 13.1 11.5 - 14.5 % 04/05/2025 11:45 PM [facility] Platelets 511(H) 150 - 400 K/CU MM 04/05/2025 11:45 PM [facility] MPV 9.2(L) 9.4 - 12.4 fL 04/05/2025 11:45 PM [facility] Nucleated Red Blood Cell 0.0 0 - 0.2 % 04/05/2025 11:45 PM [facility] % Neutros 65 37 - 80 % 04/05/2025 11:45 PM [facility] % Lymphs 27 10 - 50 % 04/05/2025 11:45 PM [facility] % Monos 6 5 - 13 % 04/05/2025 11:45 PM [facility] % Eos 0.8 0.0 - 7.0 % 04/05/2025 11:45 PM [facility] % Baso 1 0 - 3 % 04/05/2025 11:45 PM [facility] NRBC Absolute <0.01 0 - 0.012 K/ul 04/05/2025 11:45 PM [facility] # Neutros 6.35 2.00 - 6.90 K/ L 04/05/2025 11:45 PM EST [facility] # Lymphs 2.68 0.60 - 3.40 K/ L 04/05/2025 11:45 PM EST [facility] # Monos 0.62 0.00 - 0.90 K/ L 04/05/2025 11:45 PM EST [facility] # Eos 0.08 0.00 - 0.70 K/ L 04/05/2025 11:45 PM EST [facility] # Baso 0.05 0.00 - 0.20 K/ L 04/05/2025 11:45 PM EST [facility] % Imm Grans 0.20 % 04/05/2025 11:45 PM EST [facility] # IG 0.02(H) 0.00 - 0.00 K/uL 04/05/2025 11:45 PM EST [facility] Blood Venipuncture / Unknown 04/05/2025 11:30 PM EST 04/05/2025 11:41 PM EST Narrative [facility] - 04/05/2025 11:45 PM EST When CBC w/ Auto Diff is ordered the lab will add a Manual Differential as a quality check at no additional charge if: Lymphocytes greater than seventy five percent with normal or increased WBC Monocytes greater than Fifteen percent Basophil greater than four percent Bands >10% or several immature myeloids are seen on scan Blast? Flag noted Atypical Lymph flag noted us Keke Gar MD LAB BLOOD ORDERABLES Lainey l Result [facility] [address] [place], [place] [id number], [facility] [phone] * (ABNORMAL) Urinalysis w/Microscopic (04/05/2025 11:04 PM EST) Color, UA Yellow 04/05/2025 11:43 PM EST [facility] Clarity, UA Clear 04/05/2025 11:43 PM [facility] Specific Dexter, UA 1.025 1.002 - 1.030 04/05/2025 11:43 PM [facility] pH, UA 6.0 5.0 - 9.0 04/05/2025 11:43 PM [facility] Leukocytes, UA Negative Negative 04/05/2025 11:43 PM [facility] Nitrite, UA Negative Negative 04/05/2025 11:43 PM [facility] Protein, UA 1+(A) Negative 04/05/2025 11:43 PM [facility] Glucose, UA Negative Negative 04/05/2025 11:43 PM [facility] Ketones, UA Trace(A) Negative 04/05/2025 11:43 PM [facility] Urobilinogen, UA 0.2 mg/dL Normal 04/05/2025 11:43 PM [facility] Bilirubin, UA Negative Negative 04/05/2025 11:43 PM [facility] Blood, UA 3+(A) Negative 04/05/2025 11:43 PM [facility] RBC, UA 5-10(A) None Seen, Rare /HPF 04/05/2025 11:43 PM [facility] WBC, UA 0-5 None Seen, Occasional , 0-5 /HPF 04/05/2025 11:43 PM [facility] Bacteria, UA 2+(A) None Seen 04/05/2025 11:43 PM [facility] Mucus 1+(A) Trace 04/05/2025 11:43 PM [facility] SQUAMOUS EPITHELIAL 0-5(A) None Seen, Rare /HPF 04/05/2025 11:43 PM [facility] Ca Oxalate [place], UA 2+(A) (none) 04/05/2025 11:43 PM [facility] Specimen Source Urine, Clean Catch 04/05/2025 11:43 PM [facility] Urine URINE SPECIMEN COLLECTION, CLEAN CATCH / Unknown 04/05/2025 11:04 PM EST 04/05/2025 11:04 PM EST us Keke Gar MD URINE ORDERABLES Final Re sult [facility] [address] [id number], [facility] [phone] documented in this encounter Visit Diagnoses Diagnosis Ectopic - Primary Unspecified ectopic without intrauterine documented in this encounter Care Teams Senior Business Consultant Relationship Specialty Start Date End Date Sarika Moyer, [employer] [address] [place] [address] PCP - General Nurse Practitioner 04/05/25 documented as of this encounter
--- OUTSIDE RECORDS SUMMARY | 2025-04-10 23:39 | XMS_ITS | Encounter Summary ---
Author Organization [employer] ([place], [place], [place], [place], [place]) Address [address] [place] [address] Care Team Providers Care Information Systems Specialist Name Role Phone Sarika Moyer MANAGER E LEARNING Primary Care Provider + Reason for Visit [...] EST - 04/11/2025 5:09 AM EST Emergency [facility] Emergency Department [address] [place] [phone] Farzad Stiles MD [address] [place] [address] Ectopic (Primary Dx); Hypokalemia Discharge Disposition: Home [...] Follow-up with your primary care doctor or apartment house manager, call for appointment. Return to the emergency department for any new or worsening symptoms. [employer] PROJECT MANAGER * Attachments The following attachments cannot be sent through Care Everywhere. * Hypokalemia ([place] Islander) * Ectopic [id number] ([place] Islander) documented in this encounter ED Notes * [...] 2. Hypokalemia Farzad Stiles MD 04/11/25 0508 IMEDIA PROJECT MANAGER documented in this encounter Plan of Treatment [...] sac. IMPRESSION: Authenticated and Farzad Stiles MD [facility] ORDERABLES Edited Result - Final * hCG, quantitative, (04/11/2025 1:20 AM EST) HCG Serum Quant 133 mIU/mL 1:58 AM EST [facility] Comment: Results of the HCG [...] MD LAB BLOOD ORDERABLES Final Resu lt [facility] [address] [place] [address] * (ABNORMAL) Comprehensive metabolic panel (04/11/2025 1:20 AM EST) Sodium 142 136 - 145 meq/L 04/11/2025 1:58 AM EST [facility] Potassium 3.1(L) 3.5 - 5.1 meq/L 04/11/2025 1:58 AM EST [facility] Chloride 105 98 - 107 meq/L 04/11/2025 1:58 AM EST [facility] CO2 28 21 - 32 meq/L 04/11/2025 1:58 AM EST [facility] Calcium 9.0 8.5 - 10.1 mg/dL 04/11/2025 1:58 AM EST [facility] Glucose 105(H) 74 - 100 mg/dL 04/11/2025 1:58 AM EST [facility] BUN 11 7 - 18 mg/dL 04/11/2025 1:58 AM EST [facility] Creatinine 0.61 0.55 - 1.10 mg/dL 04/11/2025 1:58 AM [facility] BUN/Creatinine 18 04/11/2025 1:58 AM [facility] Albumin 3.9 3.4 - 5.0 g/dL 04/11/2025 1:58 AM [facility] Alkaline Phosphatase 78 46 - 116 U/L 04/11/2025 1:58 AM [facility] ALT 12 12 - 78 U/L 04/11/2025 1:58 AM [facility] AST 11(L) 15 - 37 U/L 04/11/2025 1:58 AM [facility] Total Bilirubin 0.4 0.2 - 1.0 mg/dL 04/11/2025 1:58 AM [facility] Protein, Total 7.1 6.4 - 8.2 gm/dL 04/11/2025 1:58 AM [facility] Anion Gap 12 11 - 22 04/11/2025 1:58 AM [facility] A/G Ratio 1.2 04/11/2025 1:58 AM [facility] Globulin 3.2 g/dL 04/11/2025 1:58 AM [facility] Osmolality Calc 282.9 mOsm/kg 1:58 AM [facility] eGFR (mL/min/1.73m2) >60 >=60 mL/min/1.7 3m2 04/11/2025 1:58 AM [facility] Comment:ESTIMATED GFR IS NOT ACCURATE CREATININE CLEARANCE IN PREDICTING GLOMERULAR FILTRATION RATE. ESTIMATED GFR IS NOT APPLICABLE FOR DIALYSIS PATIENTS. Blood Venipuncture / Unknown 04/11/2025 1:20 AM EST 04/11/2025 1:23 AM EST us Farzad Stiles MD LAB BLOOD ORDERABLES Final Resu lt [facility] [address] [place] [address], [facility] [phone] * (ABNORMAL) CBC with Auto Diff (04/11/2025 1:[address] [facility]) WBC 7.3 4.8 - 10.8 K/ L 04/11/2025 1:27 AM [facility] RBC 4.32 3.50 - 5.20 M/ L 04/11/2025 1:27 AM [facility] Hemoglobin 12.7 11.7 - 15.8 GM/DL 04/11/2025 1:27 AM [facility] Hematocrit 37.8 35.0 - 47.0 % 04/11/2025 1:27 AM [facility] MCV 88 81 - 101 fL 04/11/2025 1:27 AM [facility] MCH 29.4 27.0 - 34.0 pg 04/11/2025 1:27 AM [facility] MCHC 33.6 32.0 - 36.0 GM/DL 04/11/2025 1:27 AM [facility] RDW 13.2 11.5 - 14.5 % 04/11/2025 1:27 AM [facility] Platelets 432(H) 150 - 400 K/CU MM 04/11/2025 1:27 AM [facility] MPV 9.1(L) 9.4 - 12.4 fL 04/11/2025 1:27 AM [facility] Nucleated Red Blood Cell 0.0 0 - 0.2 % 04/11/2025 1:27 AM [facility] % Neutros 55 37 - 80 % 04/11/2025 1:27 AM [facility] % Lymphs 34 10 - 50 % 04/11/2025 1:27 AM [facility] % Monos 9 5 - 13 % 04/11/2025 1:27 AM [facility] % Eos 1.5 0.0 - 7.0 % 04/11/2025 1:27 AM [facility] % Baso 1 0 - 3 % 04/11/2025 1:27 AM [facility] NRBC Absolute <0.01 0 - 0.012 K/ul 04/11/2025 1:27 AM EST [facility] # Neutros 4.04 2.00 - 6.90 K/ L 04/11/2025 1:27 AM EST [facility] # Lymphs 2.51 0.60 - 3.40 K/ L 04/11/2025 1:27 AM EST [facility] # Monos 0.62 0.00 - 0.90 K/ L 04/11/2025 1:27 AM EST [facility] # Eos 0.11 0.00 - 0.70 K/ L 04/11/2025 1:27 AM EST [facility] # Baso 0.04 0.00 - 0.20 K/ L 04/11/2025 1:27 AM EST [facility] % Imm Grans 0.10 % 04/11/2025 1:27 AM EST [facility] # IG 0.01(H) 0.00 - 0.00 K/uL 04/11/2025 1:27 AM EST [facility] Blood Venipuncture / Unknown 04/11/2025 1:20 AM EST 04/11/2025 1:23 AM EST Narrative [facility] - 04/11/2025 1:27 AM EST [...] MD LAB BLOOD ORDERABLES Final Resu lt [facility] [address] [place], [place] [address] [phone] documented in this encounter Visit Diagnoses Diagnosis [...] access) documented in this encounter Care Teams Information Systems Specialist Relationship Specialty Start Date End Date Sarika Moyer, MANAGER E LEARNING [address] [place] [address] PCP - General Nurse Practitioner 04/05/25 documented as of this encounter
--- OUTSIDE RECORDS SUMMARY | 2025-04-18 19:23 | XMS_ITS | Encounter Summary ---
Author Organization [employer] ([place], [place], [place], [place], [place]) Address [address] [place] [address] Care Team Providers Care Driver License Technician Name Role Phone Sarika Moyer FARMER VEGETABLE Primary Care Provider + Reason for Visit * Reason Comments Vaginal Bleeding Pt was diagnosed wit h an ectopic on March 25. States she is passing clots today. HCG was 11 yesterday. Encounter Details Date Type Department Care Team (Late st Contact Info) Description 04/18/2025 7:23 PM EST - 04/18/2025 9:25 PM EST Emergency [facility] Emergency Department [address] [place] [phone] Toy Egan MD [address] [place] [address] Vaginal bleeding (Primary Dx) Discharge Disposition: Home [...] through Care Everywhere. * Abnormal Uterine Bleeding [id number] (Lao) documented in this encounter ED Notes * [...] Relationship: PCP - General [address] [facility] [address] Next Steps: Schedule an appointment as soon as possible for a visit in 2 day(s) Electronically Signed By Toy Egan MD 04/18/252118 ERN CHAIN MAKER SUPERVISOR documented in this encounter Plan of Treatment Not on file documented as of this encounter Procedures Procedure Name Priority Date/Time Associated Diagnosis Comments HCG, QUANTITATIVE, STAT 04/18/2025 8:19 PM EST documented in this encounter Results * hCG, quantitative, (04/18/2025 8:19 PM EST) Pathologist [facility] HCG Serum Quant 6 mIU/mL 9:06 PM EST [facility] Comment: Results of [...] MD LAB BLOOD ORDERABLES Final Resu lt [facility] [address] [place] [address], [facility] [phone] documented in this encounter Visit Diagnoses Diagnosis Vaginal bleeding- Primary Other specified noninflammatory disorder of vagina documented in this encounter Care Teams Driver License Technician Relationship Specialty Start Date End Date Sarika Moyer, FARMER VEGETABLE [address] [place] [address] PCP - General Nurse Practitioner 04/05/25 documented as of this encounter
--- OUTSIDE RECORDS SUMMARY | 2025-04-29 18:54 | XMS_ITS | Encounter Summary ---
Author Organization [employer] ([place], [place], [place], [place], [place]) Address [address] [place] [address] Care Team Providers Care Back Order Clerk Name Role Phone Sarika Moyer PHYSICIAN Primary Care Provider + Reason for Visit * Reason Comments Abdominal Pain Pt c/o abdominal zion n. Pt had a ectopic . Encounter Details Date Type Department Care Team (Late st Contact Info) Description 04/29/2025 6:54 PM EST - 04/29/2025 10:26 PM EST Emergency [facility] [address] [place] [phone] Zara Ross MD [address] [place] [address] Periumbilical abdominal pain (Primary Dx) Discharge Disposition: [...] your primary care doctor and with your ZIPPER JOINER. Please return to the emergency department if you have absolutely any concerns at any time. SERVICE FLOORPERSON documented in this encounter ED Notes * [...] reports that she has followed up with ZIPPER JOINER and she reports that her hCG trended [...] UA Light Yellow Clarity, UA Turbid Specific [place], UA 1.020 1.002 - 1.030 pH, UA [...] 78 BPM ATRIAL RATE (MCT) 78 BPM ME Interval 116 ms QRS-INTERVAL (MSEC) 80 ms QT Interval 376 ms QTC Interval 428 ms P Tilly 52 degrees R AXIS (MCT) -52 degrees T Wave Tilly 43 degrees [place] Diagnosis Normal sinus rhythm Left anterior fascicular [...] sinus rhythm with a rate of 78, ME 116, QRS 80, QTc 428, I do [...] Specialty: Nurse Practitioner Relationship: PCP - General [address] [place] [address] Next Steps: Follow up Electronically Signed By Zara Ross MD 05/03/25 1658 SERVICE FLOORPERSON documented in this encounter Plan of Treatment [...] ATRIAL RATE (MCT) 78 BPM GE MUSE ME Interval 116 ms GE MUSE QRS-INTERVAL (MSEC) 80 ms GE MUSE QT Interval 376 ms GE MUSE QTC Interval 428 ms GE MUSE P Tilly 52 degrees GE MUSE R AXIS (MCT) -52 degrees GE MUSE T Wave Tilly 43 degrees GE MUSE [place] Diagnosis Normal sinus rhythm Left anterior fascicular [...] , 0-5 /HPF 04/29/2025 7:55 PM EST [facility] RBC, UA None Seen None Seen, Rare /HPF 04/29/2025 7:55 PM EST [facility] Bacteria, UA 2+(A) None Seen 04/29/2025 7:55 PM EST [facility] Amorphous Crystals 2+(A) None Seen, Trace 04/29/2025 7:55 PM EST [facility] SQUAMOUS EPITHELIAL Occasional(A) None Seen, Rare /HPF 04/29/2025 7:55 PM EST [facility] Urine URINE SPECIMEN COLLECTION, CLEAN CATCH / Unknown 04/29/2025 7:34 PM EST 04/29/2025 7:40 PM EST us Zara Ross MD URINE ORDERABLES Final Re sult Performing Organization Address City/[facility]/ZIP Co de Phone Number [facility] [address] [place] [address] * (ABNORMAL) Urinalysis, Reflex Microscopic and Culture If Indicated (04/29/2025 7:34 PM EST) Color, UA Light Yellow 04/29/2025 7:54 PM EST [facility] Clarity, UA Turbid 04/29/2025 7:54 PM EST [facility] Specific [place], UA 1.020 1.002 - 1.030 04/29/2025 7:54 PM EST [facility] pH, UA 7.0 5.0 - 9.0 04/29/2025 7:54 PM EST [facility] Leukocytes, UA Negative Negative 04/29/2025 7:54 PM EST [facility] Nitrite, UA Negative Negative 04/29/2025 7:54 PM EST [facility] Protein, UA Trace(A) Negative 04/29/2025 7:54 PM EST [facility] Glucose, UA Negative Negative 04/29/2025 7:54 PM EST [facility] Ketones, UA Negative Negative 04/29/2025 7:54 PM EST [facility] Bilirubin, UA Negative Negative 04/29/2025 7:54 PM EST [facility] Blood, UA Negative Negative 04/29/2025 7:54 PM EST [facility] Urobilinogen, UA 0.2 mg/dL Normal 04/29/2025 7:54 PM EST [facility] Specimen Source Urine, Clean Catch 04/29/2025 7:54 PM EST [facility] Urine URINE SPECIMEN COLLECTION, CLEAN CATCH / Unknown 04/29/2025 7:34 PM EST 04/29/2025 7:40 PM EST us Zara Ross MD URINE ORDERABLES Final Re sult [facility] [address] [place] [address] * D-dimer (04/29/2025 7:31 PM EST) D-Dimer, Quant ([facility] SJE) 140.69 <=500.00 ng/mL FEU 04/29/2025 8:13 PM EST [facility] Comment: A normal D-dimer result [...] Lainey l Result Performing Organization Address City/[facility] Co de Phone Number [facility] [address] [place] [address] * (ABNORMAL) High Sensitivity Troponin I (04/29/2025 7:31 PM EST) Troponin I High Sensitivity (pg/mL) <4(L) 4 - 60.3 pg/mL 04/29/2025 8:08 PM EST [facility] Comment: Troponin Result (pg/mL) *Interpretation [...] PM EST 04/29/2025 7:40 PM EST Result [facility] Zara Ross MD LAB BLOOD ORDERABLES Lainey l Result Performing Organization Address City/[facility]/ZIP Co de Phone Number [facility] [address] [place] [address] * Lipase (04/29/2025 7:31 PM EST) Lipase 40 16 - 77 U/L 04/29/2025 8:07 PM EST [facility] Blood Venipuncture / Unknown 04/29/2025 7:31 PM EST 04/29/2025 7:40 PM EST Zara Ross MD LAB BLOOD ORDERABLES Lainey l Result [facility] [address] [place] [address], [facility] [phone] * (ABNORMAL) Comprehensive metabolic panel (04/29/2025 7:31 PM EST) Sodium 140 136 - 145 meq/L 04/29/2025 8:07 PM [facility] Potassium 3.6 3.5 - 5.1 meq/L 04/29/2025 8:07 PM [facility] Chloride 102 98 - 107 meq/L 04/29/2025 8:07 PM [facility] CO2 29 21 - 32 meq/L 04/29/2025 8:07 PM [facility] Calcium 9.6 8.5 - 10.1 mg/dL 04/29/2025 8:07 PM [facility] Glucose 89 74 - 100 mg/dL 04/29/2025 8:07 PM [facility] BUN 12 7 - 18 mg/dL 04/29/2025 8:07 PM [facility] Creatinine 0.54(L) 0.55 - 1.10 mg/dL 04/29/2025 8:07 PM [facility] BUN/Creatinine 22 04/29/2025 8:07 PM [facility] Albumin 4.5 3.4 - 5.0 g/dL 04/29/2025 8:07 PM [facility] Alkaline Phosphatase 97 46 - 116 U/L 04/29/2025 8:07 PM [facility] ALT 12 12 - 78 U/L 04/29/2025 8:07 PM [facility] AST 12(L) 15 - 37 U/L 04/29/2025 8:07 PM [facility] Total Bilirubin 0.3 0.2 - 1.0 mg/dL 04/29/2025 8:07 PM [facility] Protein, Total 8.1 6.4 - 8.2 gm/dL 04/29/2025 8:07 PM [facility] Anion Gap 13 11 - 04/29/2025 8:07 PM [facility] A/G Ratio 1.3 04/29/2025 8:07 PM [facility] Globulin 3.6 g/dL 04/29/2025 8:07 PM [facility] Osmolality Calc 278.6 mOsm/kg 8:07 PM [facility] eGFR (mL/min/1.73m2) >60 >=60 mL/min/1.7 3m2 04/29/2025 8:07 PM [facility] Comment:ESTIMATED GFR IS NOT ACCURATE CREATININE CLEARANCE IN PREDICTING GLOMERULAR FILTRATION RATE. ESTIMATED GFR IS NOT APPLICABLE FOR DIALYSIS PATIENTS. Blood Venipuncture / Unknown 04/29/2025 7:31 PM EST 04/29/2025 7:40 PM EST Zara Ross MD LAB BLOOD ORDERABLES Lainey mckay Result [facility] [address] [place] [address] * hCG, quantitative, (04/29/2025 7:31 PM EST) HCG Serum Quant 1 mIU/mL 8:07 PM [facility] Comment: Results of the [...] MD LAB BLOOD ORDERABLES Lainey nely Result [facility] [address] [id number], [facility] [phone] * (ABNORMAL) CBC with Auto Diff (04/29/2025 7:31 PM EST) WBC 9.4 4.8 - 10.8 K/ L 04/29/2025 7:44 PM [facility] RBC 4.73 3.50 - 5.20 M/ L 04/29/2025 7:44 PM [facility] Hemoglobin 13.7 11.7 - 15.8 GM/DL 04/29/2025 7:44 PM [facility] Hematocrit 41.2 35.0 - 47.0 % 04/29/2025 7:44 PM [facility] MCV 87 81 - 101 fL 04/29/2025 7:44 PM [facility] MCH 29.0 27.0 - 34.0 pg 04/29/2025 7:44 PM [facility] MCHC 33.3 32.0 - 36.0 GM/DL 04/29/2025 7:44 PM [facility] RDW 12.9 11.5 - 14.5 % 04/29/2025 7:44 PM [facility] Platelets 501(H) 150 - 400 K/CU MM 04/29/2025 7:44 PM [facility] MPV 9.1(L) 9.4 - 12.4 fL 04/29/2025 7:44 PM [facility] Nucleated Red Blood Cell 0.0 0 - 0.2 % 04/29/2025 7:44 PM [facility] % Neutros 64 37 - 80 % 04/29/2025 7:44 PM [facility] % Lymphs 28 10 - 50 % 04/29/2025 7:44 PM EST [facility] % Monos 7 5 - 13 % 04/29/2025 7:44 PM EST [facility] % Eos 0.5 0.0 - 7.0 % 04/29/2025 7:44 PM EST [facility] % Baso 0 0 - 3 % 04/29/2025 7:44 PM EST [facility] NRBC Absolute <0.01 0 - 0.012 K/ul 04/29/2025 7:44 PM EST [facility] # Neutros 6.04 2.00 - 6.90 K/ L 04/29/2025 7:44 PM [facility] # Lymphs 2.60 0.60 - 3.40 K/ L 04/29/2025 7:44 PM [facility] # Monos 0.69 0.00 - 0.90 K/ L 04/29/2025 7:44 PM EST [facility] # Eos 0.05 0.00 - 0.70 K/ L 04/29/2025 7:44 PM EST [facility] # Baso 0.04 0.00 - 0.20 K/ L 04/29/2025 7:44 PM [facility] % Imm Grans 0.10 % 04/29/2025 7:44 PM [facility] # IG 0.01(H) 0.00 - 0.00 K/uL 04/29/2025 7:44 PM EST [facility] Blood Venipuncture / Unknown 04/29/2025 7:31 PM EST 04/29/2025 7:40 PM EST Narrative [facility] - 04/29/2025 7:44 PM EST [...] MD LAB BLOOD ORDERABLES Lainey mckay Result [facility] [address] [phone] documented in this encounter Visit Diagnoses Diagnosis Periumbilical abdominal pain- Primary Abdominal pain, periumbilic documented in this encounter Care Teams Back Order Clerk Relationship Specialty Start Date End Date Sarika Moyer, PHYSICIAN [address] [place] [address] PCP - General Nurse Practitioner 04/05/25 documented as of this encounter
[2025-05-03 20:00] VITALS: BP 137/94; PULSE 117; RESP 16; TEMP 36.9; O2SAT 98; BMI 18.6
--- NOTE | 2025-05-03 20:07 | PC.NURSE ---
Pt triaged, UA obtained and placed back in lobby awaiting room assignment.
--- OUTSIDE RECORDS SUMMARY | 2025-05-03 20:16 | XMS_ITS | Encounter Summary ---
Author Organization [facility] ([place], [place], [place], [place], [place]) Address [address] [place] [address] Care Team Providers Care Branch Retail Executive Name Role Phone Sarika Moyer REHABILITATION SERVICES COORDINATOR Primary Care Provider + Encounter Details Date [...] filedocumented in this encounter Care Teams Branch Retail Executive Relationship Specialty Start Date End Date Sarika Moyer APRN [address] [place] [address] PCP - General Nurse Practitioner 04/05/25 documented as of this encounter
--- OUTSIDE RECORDS SUMMARY | 2025-05-03 20:16 | XMS_ITS | Encounter Summary ---
Author Organization [facility] ([place], [place], [place], [place], [place]) Address [address] [place] [address] Care Team Providers Care Food And Beverage Assistant Name Role Phone Sarika Moyer ISO COORDINATOR Primary Care Provider + Encounter Details [...] on filedocumented in this encounter Care Teams Food And Beverage Assistant Relationship Specialty Start Date End Date Sarika Moyer APRN [address] [place] [address] PCP - General Nurse Practitioner 04/05/25 documented as of this encounter
--- OUTSIDE RECORDS SUMMARY | 2025-05-03 20:16 | XMS_ITS | Encounter Summary ---
Author Organization Healthcare Address [address] [id number] Care Team Providers Care Econometrician Name Role Phone Sarika Moyer SENIOR ACCOUNTING ASSOCIATE Primary Care Provider + Encounter Details [...] on filedocumented in this encounter Care Teams Econometrician Relationship Specialty Start Date End Date Sarika Moyer, SENIOR ACCOUNTING ASSOCIATE [address] [address] PCP - General 10/14/20 documented as of this encounter
--- OUTSIDE RECORDS SUMMARY | 2025-05-03 20:17 | XMS_ITS | Encounter Summary ---
Author Organization Healthcare Address [address] [place] [address] Care Team Providers Care Caisson Worker Name Role Phone Sarika Moyer GOLF COACH Primary Care Provider + Encounter Details Date Type Department Care Team ([facility] st Contact Info) Description 03/17/2025 Telephone Obstetrics & Gynecology [address] [place] [address] Chiki Cardenas MD [address] [place] [address] Social History Tobacco Use Types [...] on filedocumented in this encounter Care Teams Caisson Worker Relationship Specialty Start Date End Date Sarika Moyer APRN [address] [place] [address] PCP - General 10/14/20 documented as of this encounter
--- OUTSIDE RECORDS SUMMARY | 2025-05-03 20:17 | XMS_ITS | Clinical Summary ---
Author Organization Healthcare Address [address] [id number] Care Team Providers Care Manager Pipeline Name Role Phone Sarika Moyer PLANT WRAPPER Primary Care Provider + Allergies Active Allergy Reactions Criticality Noted Date Comments Escitalopram Anaphylaxis High 03/27/2025 Robitussin Dm Max Day-Night Anxiety Low 03/27/20 Medications No known medications Active Problems Comments Yes No known active problems Encounters Date Type Department Care Team Description 03/27/2025 8:35 PM EDT - 03/28/2025 1:22 AM EDT Emergency [facility] Emergency Department [address] [place] [address] Rose Cortes MD of unknown anatomic location (Primary Dx) Discharge Disposition: Home or Self Care 03/27/2025 Travel 03/17/2025 Telephone Obstetrics & Gynecology [address] [place] [phone] Chiki Cardenas MD from Last 3 [...] 10/19/2024 10/19/2014, 05/21/2006, 08/26/2003, Additional history exists [id number] Vaccine ( - season) 2025 UKY-Influenza Vaccine [...] Resu lt [facility] [address] [place] [address] * Hepatitis C Antibody - ED (03/27/2025 8:31 PM EDT) Hepatitis C Antibody Negative Negative 03/27/2025 9:26 PM EDT [facility] Blood Venous blood specimen / Unknown Venipuncture / Unknown 03/27/2025 8:31 PM EDT 03/27/2025 8:44 PM EDT us Rose Cortes MD LAB BLOOD ORDERABLES Final Resu lt [facility] [address] [place] [address] * (ABNORMAL) CBC w/diff (03/27/2025 8:31 PM EDT) Pathologist [facility] WBC Count 11.76(H) 3.70 - 10.30 [...] ORDERABLES Final Resu lt Performing Organization Address City/[facility]/ZIP Co de Phone Number [facility] [address] [place] [address] * Type and screen (03/27/2025 8:31 PM [...] ORDERABLES Final Result Performing Organization Address [facility] de Phone Number BLOOD BANK [address] [place] [address] * (ABNORMAL) hCG, quantitative, (03/27/2025 8:31 PM [...] Resu lt [facility] [address] [place] [address] * (ABNORMAL) CMP (03/27/2025 8:31 PM EDT) [...] lt [facility] [address] [place] [address] from Last 3 Months Insurance [facility] MEDICAID Care Teams Manager Pipeline Relationship Specialty Start Date End Date Sarika Moyer APRN [address] [address] PCP - General 10/14/20
--- OUTSIDE RECORDS SUMMARY | 2025-05-03 20:17 | XMS_ITS | Encounter Summary ---
Author Organization [employer] ([place], [place], [place], [place], [place]) Address [address] [place] [address] Care Team Providers Care Dice Table Operator Name Role Phone Sarika Moyer PULLER THROUGH Primary Care Provider + Encounter Details Date [...] on filedocumented in this encounter Care Teams Dice Table Operator Relationship Specialty Start Date End Date Sarika Moyer APRN [address] [place] [address] PCP - General Nurse Practitioner 04/05/25 documented as of this encounter
--- OUTSIDE RECORDS SUMMARY | 2025-05-03 20:17 | XMS_ITS | Encounter Summary ---
Author Organization [employer] ([place], [place], [place], [place], [place]) Address [address] [place] [address] Care Team Providers Care Architectural Associate Name Role Phone Sarika Moyer BOARD WRITER Primary Care Provider + Encounter Details Date [...] on filedocumented in this encounter Care Teams Architectural Associate Relationship Specialty Start Date End Date Sarika Moyer APRN [address] [place] [address] PCP - General Nurse Practitioner 04/05/25 documented as of this encounter
--- OUTSIDE RECORDS SUMMARY | 2025-05-03 20:17 | XMS_ITS | Referral Summary ---
Author Organization [employer] ([place], [place], [place], [place], [place]) Address [address] [place] [address] Care Team Providers Care Spinning And Winding Supervisor Name Role Phone Sarika Moyer BABY NURSE Primary Care Provider + Encounters Date Type Department Care Team Description 04/29/2025 Travel 04/29/2025 6:54 PM EST - 04/29/2025 10:26 PM EST Emergency [facility] Emergency Department [address] [place] [address] Zara Ross MD Periumbilical abdominal pain (Primary Dx) Discharge Disposition: Home or Self Care 04/18/2025 Travel 04/18/2025 7:23 PM EST - 04/18/2025 9:25 PM EST Emergency [facility] Emergency Department [address] [place] [address] Toy Egan MD Vaginal bleeding (Primary Dx) Discharge Disposition: Home or Self Care 04/10/2025 11:39 PM EST - 04/11/2025 5:09 AM EST Emergency [facility] Emergency Department [address] [place], [place] [phone] Farzad Stiles MD Ectopic (Primary Dx); Hypokalemia Discharge Disposition: Home or Self Care 04/10/2025 Travel 04/05/2025 10:43 PM EST - 04/06/2025 2:31 AM EST Emergency [facility] Emergency Department [address] [place], [place] [phone] Keke Gar MD Ectopic (Primary Dx) Discharge [...] QTC Interval 428 ms GE MUSE P [place] 52 degrees GE MUSE R AXIS (MCT) -52 degrees GE MUSE T Wave [place] 43 degrees GE MUSE [place] Diagnosis Normal sinus rhythm Left anterior fascicular [...] UA Light Yellow 04/29/2025 7:54 PM EST [facility] Clarity, UA Turbid 04/29/2025 7:54 PM EST [facility] Specific [place], UA 1.020 1.002 - 1.030 04/29/2025 7:54 PM EST [facility] pH, UA 7.0 5.0 - 9.0 04/29/2025 7:54 PM EST [facility] Leukocytes, UA Negative Negative 04/29/2025 7:54 PM EST [facility] Nitrite, UA Negative Negative 04/29/2025 7:54 PM EST [facility] Protein, UA Trace(A) Negative 04/29/2025 7:54 PM EST [facility] Glucose, UA Negative Negative 04/29/2025 7:54 PM EST [facility] Ketones, UA Negative Negative 04/29/2025 7:54 PM EST [facility] Bilirubin, UA Negative Negative 04/29/2025 7:54 PM EST [facility] Blood, UA Negative Negative 04/29/2025 7:54 PM EST [facility] Urobilinogen, UA 0.2 mg/dL Normal 04/29/2025 7:54 PM EST [facility] Specimen Source Urine, Clean Catch 04/29/2025 7:54 PM EST [facility] Urine URINE SPECIMEN COLLECTION, CLEAN CATCH / Unknown 04/29/2025 7:34 PM EST 04/29/2025 7:40 PM EST us Zara Ross MD URINE ORDERABLES Final Re sult [facility] [address] [place] [address] * (ABNORMAL) Urinalysis Microscopic Only (04/29/2025 7:34 PM EST) WBC, UA Occasional None Seen, Occasional , 0-5 /HPF 04/29/2025 7:55 PM EST [facility] RBC, UA None Seen None Seen, Rare /HPF 04/29/2025 7:55 PM EST [facility] Bacteria, UA 2+(A) None Seen 04/29/2025 7:55 PM EST [facility] Amorphous Crystals 2+(A) None Seen, Trace 04/29/2025 7:55 PM EST [facility] SQUAMOUS EPITHELIAL Occasional(A) None Seen, Rare /HPF 04/29/2025 7:55 PM EST [facility] Urine URINE SPECIMEN COLLECTION, CLEAN CATCH / Unknown 04/29/2025 7:34 PM EST 04/29/2025 7:40 PM EST us Zara Ross MD URINE ORDERABLES Final Re sult [facility] [address] [place] [address] * (ABNORMAL) CBC with Auto Diff (04/29/2025 7:31 PM EST) Only the most recent of3 resultswithin the time period is included. WBC 9.4 4.8 - 10.8 K/ L 04/29/2025 7:44 PM [facility] RBC 4.73 3.50 - 5.20 M/ L 04/29/2025 7:44 PM [facility] Hemoglobin 13.7 11.7 - 15.8 GM/DL 04/29/2025 7:44 PM [facility] Hematocrit 41.2 35.0 - 47.0 % 04/29/2025 7:44 PM EST [facility] MCV 87 81 - 101 fL 04/29/2025 7:44 PM [facility] MCH 29.0 27.0 - 34.0 pg 04/29/2025 7:44 PM [facility] MCHC 33.3 32.0 - 36.0 GM/DL 04/29/2025 7:44 PM [facility] RDW 12.9 11.5 - 14.5 % 04/29/2025 7:44 PM [facility] Platelets 501(H) 150 - 400 K/CU MM 04/29/2025 7:44 PM [facility] MPV 9.1(L) 9.4 - 12.4 fL 04/29/2025 7:44 PM [facility] Nucleated Red Blood Cell 0.0 0 - 0.2 % 04/29/2025 7:44 PM [facility] % Neutros 64 37 - 80 % 04/29/2025 7:44 PM [facility] % Lymphs 28 10 - 50 % 04/29/2025 7:44 PM [facility] % Monos 7 5 - 13 % 04/29/2025 7:44 PM [facility] % Eos 0.5 0.0 - 7.0 % 04/29/2025 7:44 PM [facility] % Baso 0 0 - 3 % 04/29/2025 7:44 PM [facility] NRBC Absolute <0.01 0 - 0.012 K/ul 04/29/2025 7:44 PM [facility] # Neutros 6.04 2.00 - 6.90 K/ L 04/29/2025 7:44 PM [facility] # Lymphs 2.60 0.60 - 3.40 K/ L 04/29/2025 7:44 PM [facility] # Monos 0.69 0.00 - 0.90 K/ L 04/29/2025 7:44 PM [facility] # Eos 0.05 0.00 - 0.70 K/ L 04/29/2025 7:44 PM [facility] # Baso 0.04 0.00 - 0.20 K/ L 04/29/2025 7:44 PM EST [facility] % Imm Grans 0.10 % 04/29/2025 7:44 PM EST [facility] # IG 0.01(H) 0.00 - 0.00 K/uL 04/29/2025 7:44 PM EST [facility] Blood Venipuncture / Unknown 04/29/2025 7:31 PM EST 04/29/2025 7:40 PM EST Narrative [facility] - 04/29/2025 7:44 PM EST [...] MD LAB BLOOD ORDERABLES Lainey l Result [facility] [address] [place] [address] * (ABNORMAL) High Sensitivity Troponin I (04/29/2025 7:31 PM EST) Troponin I High Sensitivity (pg/mL) <4(L) 4 - 60.3 pg/mL 04/29/2025 8:08 PM EST [facility] Comment: Troponin Result (pg/mL) *Interpretation [...] MD LAB BLOOD ORDERABLES Lainey l Result [facility] [address] [place] [address] * D-dimer (04/29/2025 7:31 PM EST) D-Dimer, Quant ([facility]) 140.69 <=500.00 ng/mL FEU 04/29/2025 8:13 PM EST [facility] Comment: A normal D-dimer result [...] ORDERABLES Lainey l Result Performing Organization Address [facility] Co de Phone Number [facility] [address] [place] [address] * hCG, quantitative, (04/29/2025 7:31 PM EST) Only the most recent of3 resultswithin the time period is included. HCG Serum Quant 1 mIU/mL 8:07 PM EST [facility] Comment: Results of the HCG [...] MD LAB BLOOD ORDERABLES Lainey l Result [facility] [address] [place] [address] * Lipase (04/29/2025 7:31 PM EST) Pathologist [facility] Lipase 40 16 - 77 U/L 04/29/2025 8:07 PM EST [facility] Blood Venipuncture / Unknown 04/29/2025 7:31 PM EST 04/29/2025 7:40 PM EST Zara Ross MD LAB BLOOD ORDERABLES Lainey l Result Performing Organization Address City/[facility]/ZIP Co de Phone Number [facility] [address] [place] [address] * (ABNORMAL) Comprehensive metabolic panel (04/29/2025 7:31 PM EST) Only the most recent of3 resultswithin the time period is included. Pathologist [facility] Sodium 140 136 - 145 meq/L 04/29/2025 8:07 PM EST [facility] Potassium 3.6 3.5 - 5.1 meq/L 04/29/2025 8:07 PM EST [facility] Chloride 102 98 - 107 meq/L 04/29/2025 8:07 PM EST [facility] CO2 29 21 - 32 meq/L 04/29/2025 8:07 PM EST [facility] Calcium 9.6 8.5 - 10.1 mg/dL 04/29/2025 8:07 PM EST [facility] Glucose 89 74 - 100 mg/dL 04/29/2025 8:07 PM [facility] BUN 12 7 - 18 mg/dL 04/29/2025 8:07 PM [facility] Creatinine 0.54(L) 0.55 - 1.10 mg/dL 04/29/2025 8:07 PM [facility] BUN/Creatinine 22 04/29/2025 8:07 PM [facility] Albumin 4.5 3.4 - 5.0 g/dL 04/29/2025 8:07 PM [facility] Alkaline Phosphatase 97 46 - 116 U/L 04/29/2025 8:07 PM [facility] ALT 12 12 - 78 U/L 04/29/2025 8:07 PM [facility] AST 12(L) 15 - 37 U/L 04/29/2025 8:07 PM [facility] Total Bilirubin 0.3 0.2 - 1.0 mg/dL 04/29/2025 8:07 PM [facility] Protein, Total 8.1 6.4 - 8.2 gm/dL 04/29/2025 8:07 PM [facility] Anion Gap 13 11 - 04/29/2025 8:07 PM [facility] A/G Ratio 1.3 04/29/2025 8:07 PM [facility] Globulin 3.6 g/dL 04/29/2025 8:07 PM [facility] Osmolality Calc 278.6 mOsm/kg 8:07 PM [facility] eGFR (mL/min/1.73m2) >60 >=60 mL/min/1.7 3m2 04/29/2025 8:07 PM [facility] Comment:ESTIMATED GFR IS NOT ACCURATE CREATININE CLEARANCE IN PREDICTING GLOMERULAR FILTRATION RATE. ESTIMATED GFR IS NOT APPLICABLE FOR DIALYSIS PATIENTS. Blood Venipuncture / Unknown 04/29/2025 7:31 PM EST 04/29/2025 7:40 PM EST us Zara Ross MD LAB BLOOD ORDERABLES Lainey mckay Result [facility] [address] [place] [address], [facility] [phone] * US OB transvaginal (04/11/2025 2:29 AM [...] the cul de sac. IMPRESSION: Authenticated and aFrzad Stiles MD [facility] ORDERABLES Edited Result - Final * (ABNORMAL) Urinalysis w/Microscopic (04/05/2025 11:04 PM EST) Color, UA Yellow 04/05/2025 11:43 PM EST [facility] Clarity, UA Clear 04/05/2025 11:43 PM EST [facility] Specific [place], UA 1.025 1.002 - 1.030 04/05/2025 11:43 PM EST [facility] pH, UA 6.0 5.0 - 9.0 04/05/2025 11:43 PM [facility] Leukocytes, UA Negative Negative 04/05/2025 11:43 PM [facility] Nitrite, UA Negative Negative 04/05/2025 11:43 PM [facility] Protein, UA 1+(A) Negative 04/05/2025 11:43 PM [facility] Glucose, UA Negative Negative 04/05/2025 11:43 PM [facility] Ketones, UA Trace(A) Negative 04/05/2025 11:43 PM [facility] Urobilinogen, UA 0.2 mg/dL Normal 04/05/2025 11:43 PM [facility] Bilirubin, UA Negative Negative 04/05/2025 11:43 PM [facility] Blood, UA 3+(A) Negative 04/05/2025 11:43 PM [facility] RBC, UA 5-10(A) None Seen, Rare /HPF 04/05/2025 11:43 PM [facility] WBC, UA 0-5 None Seen, Occasional , 0-5 /HPF 04/05/2025 11:43 PM [facility] Bacteria, UA 2+(A) None Seen 04/05/2025 11:43 PM [facility] Mucus 1+(A) Trace 04/05/2025 11:43 PM [facility] SQUAMOUS EPITHELIAL 0-5(A) None Seen, Rare /HPF 04/05/2025 11:43 PM [facility] Ca Oxalate [place], UA 2+(A) (none) 04/05/2025 11:43 PM [facility] Specimen Source Urine, Clean Catch 04/05/2025 11:43 PM [facility] Urine URINE SPECIMEN COLLECTION, CLEAN CATCH / Unknown 04/05/2025 11:04 PM EST 04/05/2025 11:04 PM EST us Keke Gar MD URINE ORDERABLES Final Re sult [facility] [address] [place] [address], [facility] [phone] from Last 3 Months Insurance [facility] Care Teams Spinning And Winding Supervisor Relationship Specialty Start Date End Date Sarika Moyer, BABY NURSE [address] [place] [address] PCP - General Nurse Practitioner 04/05/25
--- OUTSIDE RECORDS SUMMARY | 2025-05-03 20:17 | XMS_ITS | Clinical Summary ---
Author Organization [employer] ([place], [place], [place], [place], [place]) Address [address] [place] [address] Care Team Providers Care Chemical Equipment Controller Name Role Phone Sarika Moyer TRANSITION ADVISOR Primary Care Provider + Allergies Active Allergy Reactions Criticality Noted Date Comments Escitalopram 04/05/2025 Acetaminophen-Dm 04/05/2025 Medications No known medications Encounters Date Type Department Care Team Description 04/29/2025 6:54 PM EST - 04/29/2025 10:26 PM EST Emergency [facility] Emergency Department [address] [place] [phone] Zara Ross MD Periumbilical abdominal pain (Primary Dx) Discharge Disposition: Home or Self Care 04/29/2025 Travel 04/18/2025 7:23 PM EST - 04/18/2025 9:25 PM EST Emergency [facility] Emergency Department [address] [place] [phone] Toy Egan MD Vaginal bleeding (Primary Dx) Discharge Disposition: Home or Self Care 04/18/2025 Travel 04/10/2025 11:39 PM EST - 04/11/2025 5:09 AM EST Emergency [facility] Emergency Department [address] [place] [phone] Farzad Stiles MD Ectopic (Primary Dx); Hypokalemia Discharge Disposition: Home or Self Care 04/10/2025 Travel 04/05/2025 10:43 PM EST - 04/06/2025 2:31 AM EST Emergency [facility] Emergency Department [address] [place] [phone] Keke Gar MD Ectopic (Primary Dx) Discharge [...] ATRIAL RATE (MCT) 78 BPM GE MUSE OR Interval 116 ms GE MUSE QRS-INTERVAL (MSEC) 80 ms GE MUSE QT Interval 376 ms GE MUSE QTC Interval 428 ms GE MUSE P [place] 52 degrees GE MUSE R AXIS (MCT) -52 degrees GE MUSE T Wave [place] 43 degrees GE MUSE [place] Diagnosis Normal sinus rhythm Left anterior fascicular [...] UA Light Yellow 04/29/2025 7:54 PM EST [facility] Clarity, UA Turbid 04/29/2025 7:54 PM EST [facility] Specific [place], UA 1.020 1.002 - 1.030 04/29/2025 7:54 PM EST [facility] pH, UA 7.0 5.0 - 9.0 04/29/2025 7:54 PM EST [facility] Leukocytes, UA Negative Negative 04/29/2025 7:54 PM EST [facility] Nitrite, UA Negative Negative 04/29/2025 7:54 PM EST [facility] Protein, UA Trace(A) Negative 04/29/2025 7:54 PM EST [facility] Glucose, UA Negative Negative 04/29/2025 7:54 PM EST [facility] Ketones, UA Negative Negative 04/29/2025 7:54 PM EST [facility] Bilirubin, UA Negative Negative 04/29/2025 7:54 PM EST [facility] Blood, UA Negative Negative 04/29/2025 7:54 PM EST [facility] Urobilinogen, UA 0.2 mg/dL Normal 04/29/2025 7:54 PM EST [facility] Specimen Source Urine, Clean Catch 04/29/2025 7:54 PM EST [facility] Urine URINE SPECIMEN COLLECTION, CLEAN CATCH / Unknown 04/29/2025 7:34 PM EST 04/29/2025 7:40 PM EST us Zara Ross MD URINE ORDERABLES Final Re sult Performing Organization Address City/[facility]/ZIP Co de Phone Number [facility] [address] [place] [address] * (ABNORMAL) Urinalysis Microscopic Only (04/29/2025 7:34 PM EST) WBC, UA Occasional None Seen, Occasional , 0-5 /HPF 04/29/2025 7:55 PM [facility] RBC, UA None Seen None Seen, Rare /HPF 04/29/2025 7:55 PM [facility] Bacteria, UA 2+(A) None Seen 04/29/2025 7:55 PM EST [facility] Amorphous Crystals 2+(A) None Seen, Trace 04/29/2025 7:55 PM EST [facility] SQUAMOUS EPITHELIAL Occasional(A) None Seen, Rare /HPF 04/29/2025 7:55 PM EST [facility] Urine URINE SPECIMEN COLLECTION, CLEAN CATCH / Unknown 04/29/2025 7:34 PM EST 04/29/2025 7:40 PM EST us Zara Ross MD URINE ORDERABLES Final Re sult [facility] [address] [place] [address] * (ABNORMAL) CBC with Auto Diff (04/29/2025 7:31 PM EST) Only the most recent of3 resultswithin the time period is included. WBC 9.4 4.8 - 10.8 K/ L 04/29/2025 7:44 PM [facility] RBC 4.73 3.50 - 5.20 M/ L 04/29/2025 7:44 PM [facility] Hemoglobin 13.7 11.7 - 15.8 GM/DL 04/29/2025 7:44 PM [facility] Hematocrit 41.2 35.0 - 47.0 % 04/29/2025 7:44 PM [facility] MCV 87 81 - 101 fL 04/29/2025 7:44 PM [facility] MCH 29.0 27.0 - 34.0 pg 04/29/2025 7:44 PM [facility] MCHC 33.3 32.0 - 36.0 GM/DL 04/29/2025 7:44 PM [facility] RDW 12.9 11.5 - 14.5 % 04/29/2025 7:44 PM [facility] Platelets 501(H) 150 - 400 K/CU MM 04/29/2025 7:44 PM [facility] MPV 9.1(L) 9.4 - 12.4 fL 04/29/2025 7:44 PM [facility] Nucleated Red Blood Cell 0.0 0 - 0.2 % 04/29/2025 7:44 PM [facility] % Neutros 64 37 - 80 % 04/29/2025 7:44 PM [facility] % Lymphs 28 10 - 50 % 04/29/2025 7:44 PM [facility] % Monos 7 5 - 13 % 04/29/2025 7:44 PM [facility] % Eos 0.5 0.0 - 7.0 % 04/29/2025 7:44 PM [facility] % Baso 0 0 - 3 % 04/29/2025 7:44 PM EST [facility] NRBC Absolute <0.01 0 - 0.012 K/ul 04/29/2025 7:44 PM EST [facility] # Neutros 6.04 2.00 - 6.90 K/ L 04/29/2025 7:44 PM EST [facility] # Lymphs 2.60 0.60 - 3.40 K/ L 04/29/2025 7:44 PM EST [facility] # Monos 0.69 0.00 - 0.90 K/ L 04/29/2025 7:44 PM EST [facility] # Eos 0.05 0.00 - 0.70 K/ L 04/29/2025 7:44 PM EST [facility] # Baso 0.04 0.00 - 0.20 K/ L 04/29/2025 7:44 PM EST [facility] % Imm Grans 0.10 % 04/29/2025 7:44 PM EST [facility] # IG 0.01(H) 0.00 - 0.00 K/uL 04/29/2025 7:44 PM EST [facility] Blood Venipuncture / Unknown 04/29/2025 7:31 PM EST 04/29/2025 7:40 PM EST Narrative [facility] - 04/29/2025 7:44 PM [...] MD LAB BLOOD ORDERABLES Lainey mckay Result [facility] [address] [phone] * (ABNORMAL) High Sensitivity Troponin I (04/29/2025 7:31 PM EST) Troponin I High Sensitivity (pg/mL) <4(L) 4 - 60.3 pg/mL 04/29/2025 8:08 PM EST [facility] Comment: Troponin Result (pg/mL) [...] ORDERABLES Lainey l Result Performing Organization Address [facility] [[email or web address]] Co de Phone Number [facility] [address] [place] [address] * D-dimer (04/29/2025 7:31 PM EST) D-Dimer, Quant ([facility]) 140.69 <=500.00 ng/mL FEU 04/29/2025 8:13 PM EST [facility] Comment: A normal D-dimer [...] ORDERABLES Lainey l Result Performing Organization Address [facility]/ZIP Co de Phone Number [facility] [address] [place] [address] * hCG, quantitative, (04/29/2025 7:31 PM EST) Only the most recent of3 resultswithin the time period is included. HCG Serum Quant 1 mIU/mL 8:07 PM EST [facility] Comment: Results of the [...] MD LAB BLOOD ORDERABLES Lainey l Result [facility] [address] [place] [address] * Lipase (04/29/2025 7:31 PM EST) Pathologist [facility] Lipase 40 16 - 77 U/L 04/29/2025 8:07 PM EST [facility] Blood Venipuncture / Unknown 04/29/2025 7:31 PM EST 04/29/2025 7:40 PM EST Zara Ross MD LAB BLOOD ORDERABLES Lainey l Result [facility] [address] [place] [address] * (ABNORMAL) Comprehensive metabolic panel (04/29/2025 7:31 PM EST) Only the most recent of3 resultswithin the time period is included. Sodium 140 136 - 145 meq/L 04/29/2025 8:07 PM [facility] Potassium 3.6 3.5 - 5.1 meq/L 04/29/2025 8:07 PM [facility] Chloride 102 98 - 107 meq/L 04/29/2025 8:07 PM [facility] CO2 29 21 - 32 meq/L 04/29/2025 8:07 PM [facility] Calcium 9.6 8.5 - 10.1 mg/dL 04/29/2025 8:07 PM [facility] Glucose 89 74 - 100 mg/dL 04/29/2025 8:07 PM [facility] BUN 12 7 - 18 mg/dL 04/29/2025 8:07 PM [facility] Creatinine 0.54(L) 0.55 - 1.10 mg/dL 04/29/2025 8:07 PM [facility] BUN/Creatinine 22 04/29/2025 8:07 PM [facility] Albumin 4.5 3.4 - 5.0 g/dL 04/29/2025 8:07 PM [facility] Alkaline Phosphatase 97 46 - 116 U/L 04/29/2025 8:07 PM [facility] ALT 12 12 - 78 U/L 04/29/2025 8:07 PM [facility] AST 12(L) 15 - 37 U/L 04/29/2025 8:07 PM [facility] Total Bilirubin 0.3 0.2 - 1.0 mg/dL 04/29/2025 8:07 PM [facility] Protein, Total 8.1 6.4 - 8.2 gm/dL 04/29/2025 8:07 PM [facility] Anion Gap 13 - 22 04/29/2025 8:07 PM EST [facility] A/G Ratio 1.3 04/29/2025 8:07 PM EST [facility] Globulin 3.6 g/dL 04/29/2025 8:07 PM EST [facility] Osmolality Calc 278.6 mOsm/kg 8:07 PM EST [facility] eGFR (mL/min/1.73m2) >60 >=60 mL/min/1.7 3m2 04/29/2025 8:07 PM EST [facility] Comment:ESTIMATED GFR IS NOT ACCURATE CREATININE CLEARANCE IN PREDICTING GLOMERULAR FILTRATION RATE. ESTIMATED GFR IS NOT APPLICABLE FOR DIALYSIS PATIENTS. Blood Venipuncture / Unknown 04/29/2025 7:31 PM EST 04/29/2025 7:40 PM EST us Zara Ross MD LAB BLOOD ORDERABLES Lainey mckay Result [facility] [address] [place] [address] * US OB transvaginal (04/11/2025 2:29 AM [...] sac. IMPRESSION: Authenticated and Farzad Stiles MD [facility] ORDERABLES Edited Result - Final * (ABNORMAL) Urinalysis w/Microscopic (04/05/2025 11:04 PM EST) Color, UA Yellow 04/05/2025 11:43 PM [facility] Clarity, UA Clear 04/05/2025 11:43 PM [facility] Specific [place], UA 1.025 1.002 - 1.030 04/05/2025 11:43 PM [facility] pH, UA 6.0 5.0 - 9.0 04/05/2025 11:43 PM [facility] Leukocytes, UA Negative Negative 04/05/2025 11:43 PM [facility] Nitrite, UA Negative Negative 04/05/2025 11:43 PM [facility] Protein, UA 1+(A) Negative 04/05/2025 11:43 PM [facility] Glucose, UA Negative Negative 04/05/2025 11:43 PM [facility] Ketones, UA Trace(A) Negative 04/05/2025 11:43 PM [facility] Urobilinogen, UA 0.2 mg/dL Normal 04/05/2025 11:43 PM [facility] Bilirubin, UA Negative Negative 04/05/2025 11:43 PM [facility] Blood, UA 3+(A) Negative 04/05/2025 11:43 PM [facility] RBC, UA 5-10(A) None Seen, Rare /HPF 04/05/2025 11:43 PM [facility] WBC, UA 0-5 None Seen, Occasional , 0-5 /HPF 04/05/2025 11:43 PM [facility] Bacteria, UA 2+(A) None Seen 04/05/2025 11:43 PM EST [facility] Mucus 1+(A) Trace 04/05/2025 11:43 PM EST [facility] SQUAMOUS EPITHELIAL 0-5(A) None Seen, Rare /HPF 04/05/2025 11:43 PM EST [facility] Ca Oxalate [place], UA 2+(A) (none) 04/05/2025 11:43 PM EST [facility] Specimen Source Urine, Clean Catch 04/05/2025 11:43 PM EST [facility] Urine URINE SPECIMEN COLLECTION, CLEAN CATCH / Unknown 04/05/2025 11:04 PM EST 04/05/2025 11:04 PM EST us Keke Gar MD URINE ORDERABLES Final Re sult [facility] [address] [place] [address], [facility] [phone] from Last 3 Months Insurance [facility] Care Teams Chemical Equipment Controller Relationship Specialty Start Date End Date Sarika Moyer, TRANSITION ADVISOR [address] [place] [address], [place] [id number] PCP - General Nurse Practitioner 04/05/25
--- NOTE | 2025-05-03 21:19 | XR_ITS ---
PROCEDURE INFORMATION: Exam: XR Chest Exam date and time: 05/03/2025 9:25 PM Age: 25 years old Clinical indication: Pain; Right-sided; Additional info: Right sided chest pain TECHNIQUE: Imaging protocol: Radiologic exam of the chest. Views: 1 view. COMPARISON: CR XR KUB 04/28/2025 11:21 PM FINDINGS: Lungs: Unremarkable. No consolidation. Pleural spaces: Unremarkable. No pleural effusion. No pneumothorax. Heart/Mediastinum: Unremarkable. No cardiomegaly. Bones/joints: Unremarkable. IMPRESSION: No acute findings.
--- NOTE | 2025-05-03 21:19 | HMH.EDGENADL ---
Discharge Plan Disposition Patient Disposition: Home, Self-Care Prescriptions Prescriptions: No Action fluoxetine 20 mg capsule 20 mg PO DAILY 30 Days Qty: 30 2RF Rx Instructions: take in AM cephalexin 500 mg capsule 500 mg PO Q6H 5 Days Qty: 20 0RF Referrals Follow up/Referrals: Sarika Moyer APRN [Primary Care Provider, Medical] - See instructions Activity Restrictions/Add. Instructions Additional Instructions/Restrictions: Your workup today did not show any acute pathology. I encourage you to follow-up with your OB physician on Saturday as scheduled as well as your primary care physician. If you develop any new or worsening symptoms, or if you become concerned for your help for any reason, return to the emergency department for evaluation Clinical Impressions Clinical Impression: Acute pain of right shoulder Print Language Print Language: [place] Discharge ED Provider: Andrea Lucio General Adult HPI General Chief complaint: PAIN Stated complaint: Left & Right Shoulder Pain Time Seen by Provider: 05/03/25 21:11 Mode of Arrival: Family Vehicle Source of Information: Patient Description of Symptoms (Recalled from ER Triage Doc. by RN): Mutiple Complaints Pt presents to the ED with mutiple complaints. Pt c/o bilateral hip and bilateral shoulder pain, pt also c/o grion pain accompanied by white vaginal discharge. Pt reports recent hx of eptopic . History of Present Illness HPI narrative: Ivon Jeter is a 25-year-old female who presents to the emergency department for complaints of intermittent sharp pains in her right shoulder, right flank, abdomen, vaginal area and anus. She states that these pains have been very intermittent and sporadic over the past 3 days. She states that she was recently treated for an ectopic and is unsure if it was related. She states that she was seen by her primary care doctor this past week as well as an outside hospital on or Saturday of last week and had beta-hCG of 1 at that point. She is going to follow-up with her OB physician on Saturday. She denies any shortness of breath, chest pain or cough. She states that she has not had any vaginal bleeding or dysuria. Related Data Previous Rx's ?Medication ?Instructions ?Recorded cephalexin 500 mg capsule 500 mg PO Q6H 5 days #20 caps 04/17/25 fluoxetine 20 mg capsule 20 mg PO DAILY 30 days #30 caps 04/20/25 Allergies Allergy/AdvReac Type Severity Reaction Status Date / Time escitalopram (From Lexapro) Allergy Severe Anaphylaxis Verified 05/03/25 20:06 dextromethorphan Allergy Hyper Verified 05/03/25 20:06 activity guaifenesin (From Robitussin) Allergy hyper Verified 05/03/25 20:06 activity PFSH PFS Disclaimer: The information contained in this section may have been updated after the patient was seen, as this information can be updated by other users. Medical History No significant medical problems Surgical History History of tonsillectomy and adenoidectomy H/O oral surgery Family History Other No significant family history Social History Smoking Status: Current every day smoker tobacco type: e-cigarettes alcohol intake: never current occupational status: employed Travel in the last 8 weeks?: None household members: spouse Have you lived/traveled outside US in past 30 days?: No Contact w/someone who lives/traveled outside US past 30 days?: No Exposure to someone with infectious disease in past 14 days?: No Do you have a fever (greater than 100.4 F or 38 C)?: No Have you tested positive for COVID-19?: No Exposed to someone with COVID-19 in past 14 days?: No Do you have a sore throat?: No Do you have a cough?: No Do you have any weakness?: No Do you have any diarrhea?: No Are you experiencing any unusual bleeding?: No Do you have any muscle aches/pain?: No Do you have any abdominal pain?: No Are you experiencing loss of taste or smell?: No Other Medical History Have you received the Pneumonia Vaccine: No ROS Obtained: Yes Systems reviewed as appropriate & no additional complaints except as documented Physical Exam General General appearance: alert, in no apparent distress and anxious Head Head exam: atraumatic Eye Eye exam: Present normal appearance ENT ENT exam: Present normal external ear exam Neck Neck exam: Present full ROM Chest Chest inspection: Present symmetric chest wall rise Respiratory Respiratory exam: Present normal lung sounds bilaterally; Absent respiratory distress, wheezes or stridor Cardiovascular Cardiovascular exam: Present normal rhythm and tachycardia Abdominal Exam Abdominal exam: Present soft; Absent distention, tenderness, guarding or rigidity Extremities Exam Extremities exam: Present normal inspection Back Exam Back exam: Present normal inspection Neurological Exam Neurological exam: Present alert and oriented X3 Psychiatric Psychiatric exam: Present normal affect Skin Skin exam: Present warm and dry Medical Decision Making Medical Records Screening: Per USPSTF and CDC recommendations, given the prevalence of disease in our region, it is our hospital?s policy to screen for HIV and viral Hepatitis for all patients aged 18 and over and those with ongoing risk factors. Lucho Inquiry Pt receiving controlled substance: No Vital Signs: 05/03/25 20:00 05/03/25 21:51 05/03/25 22:20 Temperature 98.4 F 98.6 F Temperature Source Oral Pulse Rate 96 H 84 Pulse Rate [Left] 117 H Respiratory Rate 16 18 Blood Pressure 115/89 135/84 Blood Pressure [Right Arm] 137/94 H Blood Pressure Mean [Right Arm] 108 Blood Pressure Source [Right Arm] Automatic Cuff Blood Pressure Position [Right Arm] Sitting 02 Sat by Pulse Oximetry 98 100 Oxygen Delivery Method Room Air Room Air Room Air Lab Data Lab Results 05/03/25 19:50: Urine Color Yellow, Urine Appearance Clear, Urine pH 6.0, Ur Specific [place] 1.030, Urine Protein 2+ A, Urine Glucose (UA) Negative, Urine Ketones 3+, Urine Blood Negative, Urine Nitrate Negative, Urine Bilirubin 1+ A, Urine Urobilinogen 0.2, Ur Leukocyte Esterase Negative, Urine RBC None, Urine WBC Occasional, Ur Squamous Epith Cells 5-10, Urine Bacteria Trace Orders (Tests/Meds): ORDERS Category Date Time Status CXR --portable [XR chest portable] Stat Exams 05/03/25 21:19 Completed UA [Urinalysis and Microscopic] Stat Lab 05/03/25 19:50 Completed Medical Decision Narrative: Ivon Jeter is a 25-year-old female who presents to the emergency department for complaints of intermittent sharp pains in her right shoulder, right flank, abdomen, vaginal area and anus. She states that these pains have been very intermittent and sporadic over the past 3 days. She states that she was recently treated for an ectopic and is unsure if it was related. She states that she was seen by her primary care doctor this past week as well as an outside hospital on or Saturday of last week and had beta-hCG of 1 at that point. She is going to follow-up with her OB physician on Saturday. She denies any shortness of breath, chest pain or cough. She states that she has not had any vaginal bleeding or dysuria. On arrival, patient is tachycardic but hemodynamically stable. her tacyhcardia resolved without intervention. Physical exam is very reassuring with normal lung sounds, no murmurs or rubs. Abdomen is soft, nontender, nondistended. She appears very anxious. Chart review shows that the pativamshi has been evaluated in the emergency department on multiple occasions over the past month or so. Her B-HCG has continually been downtrending and was <2 on 04/26/25 and again <2 earlier today. Patient is concerned today that she may be having a ruptured ectopic , however with her B-HCG being undetectable for the past week, I feel that her ectopic has likely resolved and she is not at risk for it rupturing at this point. She is not having any further vaginal bleeding as well. Will obtain UA as well as CXR to rule out UTI, pneumonia, spontaneous pneumothorax. The distribution of her symptoms do not follow a specific nerve distribution. Chest x-ray interpreted by me personally. No focal consolidation, no pneumothorax, no widened mediastinum, no enlargement of the cardiac silhouette. Unremarkable chest x-ray. See radiology report for details. Urinalysis without evidence of infection or blood. Patient's workup is unremarkable and I do feel that she is appropriate for discharge at this time. Patient has close followup with Dr. Lee on Saturday. Return precautions were given. All questions were answered. She was then discharged from the ED in stable condition. Critical Care Critical Care Time Critical Care Time: No
[2025-05-03 21:51] VITALS: BP 115/89; PULSE 96; O2SAT 100
[2025-05-03 21:53] LABS: Microscopic, Urine URINE MICROSCOPIC (MICROSCOPIC)
[2025-05-03 21:56] LABS: Color,Urine YELLOW (Yellow); Glucose,Urine (UA) Negative (Negative); Ketones,Urine 3+ (Negative); Leukocyte Esterase,Urine Negative (Negative); PH,Urine 6.0 (5.0-8.5); Protein,Urine 2+ (Negative); Urobilinogen,Urine 0.2 EU/dl (0.2)
[2025-05-03 22:08] LABS: Bacteria,Urine Trace /lpf; Bilirubin,Urine 1+ (Negative); Specific Gravity, Urine 1.030 (1.005-1.030); WBC,Urine Occasional #/hpf (0-3)
[2025-05-03 22:20] VITALS: BP 135/84; PULSE 84; RESP 18; TEMP 37; O2SAT 100
== END 2025-05-03 22:21 | disposition home or self-care (01) ==
PROVIDERS: Emergency Provider Student in an Organized Health Care Education/Training Program; PCP Nurse Practitioner Family
DX: M25.511 Pain in right shoulder (principal)
CPT/HCPCS: 71045; 81001; 99283

== ENCOUNTER 2025-05-10 09:07 | Outpatient (CLI) | payer OTHER, SELFPAY ==
--- NOTE | 2025-05-10 09:00 | US_ITS ---
PROCEDURE: US TRANSVAGINAL CLINICAL INDICATION: Pelvic pain COMPARISON: CT CT ABDOMEN PELVIS WO CON from 11/21/2023 FINDINGS: Transvaginal sonographic images of the pelvis were obtained. UTERUS: 7.6 cm x 4.6 cmx 3.4cm anteverted with a combined endometrial thickness of 7.2mm. The endometrium is trilaminar. LEFT OVARY: 3.2cmx4.0cmx3.6cm with a volume of 23.8ml. There is a hemorrhagic cyst within the left ovary measuring 2.3 cm x 3.2 cm x 2.5 cm. This has the typical lacy appearance. RIGHT OVARY: 3.5 cmx 2.5 cmx2.3cm with a volume of 10.8ml. There appears to be a hemorrhagic ovarian cyst in the right ovary measuring 1.9 cm x 2.2 cm x 1.8 cm. It has the typical lacy appearance. Both ovaries are seen and contain hemorrhagic cysts. Doppler flow to both ovaries are seen. There is no fluid in the cul-de-sac. IMPRESSION: 1. Anteverted uterus normal in shape and size. The endometrium is 7.2 mm and trilaminar. 2. The left ovary contains a 3.2 cm hemorrhagic cyst and otherwise appears normal. 3. The right ovary contains a 2.2 cm hemorrhagic cyst and otherwise appears normal. 4. No fluid in the cul-de-sac. 5. Follow-up exam in 2 months to see the resolution of these hemorrhagic cysts. Dictated by: Bigg Garibay MD 05/10/2025 10:48 Bigg Garibay MD in [place] 05/10/2025 10:48
== END 2025-05-10 23:59 | disposition home or self-care (01) ==
LOC: RAD 09:07
PROVIDERS: PCP Nurse Practitioner Family; Visit Provider Obstetrics & Gynecology
DX: N83.202 Unspecified ovarian cyst, left side (principal); N83.201 Unspecified ovarian cyst, right side; N85.4 Malposition of uterus
CPT/HCPCS: 76830

== ENCOUNTER 2025-05-21 17:20 | Emergency (ER) | payer OTHER, SELFPAY ==
--- OUTSIDE RECORDS SUMMARY | 2025-03-27 19:35 | XMS_ITS | Encounter Summary ---
Author Organization Healthcare Address [address] [place] [address] Care Team Providers Care Car Shunter Name Role Phone Sarika Moyer ISAIAH Primary Care Provider + Reason for Visit * Reason Comments Pelvic Pain Encounter Details Date Type Department Care Team (Late st Contact Info) Description 03/27/2025 8:35 PM EDT - 03/28/2025 1:22 AM EDT Emergency [facility] Emergency Department [address] [place] [address] Rose Cortes MD [address] [place] [address] of unknown anatomic location (Primary Dx) Discharge [...] as able. Please increase your water intake. Wild Horse use of warm and/or cold compresses. Primary [...] here is available to you via the [email or web address] Internet portal. Please make sure that you [...] 24 y.o. with PUL being followed at [facility] who presents for RLQ pain. Patient reports that this is her first . She was having her beta hCG trended for pregnancyof unknown location, with the trend showing an inappropriate rise. Per [facility] records reviewed by ED MICHAEL, on 03/25/25 beta hCG was 568, down from 701. At this time patient received a dose of IM methotrexate. Yesterday morning/afternoon, patient reports that she had increased right lower quadrant/pelvic pain with associated nausea. At [facility] yesterday, beta hCG was found [...] - Patient with PUL being followed at [facility] - Beta hCG trend shown to be inappropriately rising > 03/17: 258 > 03/19: 276 > 03/20: 370 > 03/21: 342 > 03/24: 701 > 03/25: 568 -- Dose of methotrexate 03/25 -- > 03/27: 543 - Pt with increased RLQ pain 03/27 prompting her to present first to [facility] where beta was noted to have decreased slightly from 03/25. TVUS not directly reviewed, however records indicatea 1.5 cm unknown structure was seen in the R adnexa. - Patient was discharged home from [facility], but due to persistent pain [...] with patient that her beta hCG at [facility] today was encouraging. Explained that [...] Dispo: stable for discharge home from a [facility] standpoint. Thank you for including us in the care of this patient. This consult was staffed with Dr. Bowers. Please message on-call [facility] resident via [employer] Secure Chat or page [phone] (M-F 6a-6p) or [phone] (nights/weekends) for questions or concerns regarding this patient's care. Ivon Marmolejo MD PGY3 Obstetrics and Gynecology [1] Past Medical History: Diagnosis Date Other specified health status No pertinent past medical history [2] Past Surgical History: Procedure Laterality Date DENTAL SURGERY N/A Dental surgery from [facility] TONSILLECTOMY N/A Tonsillectomy from [facility] [3] Family History Problem Relation Name Age [...] SOA, and urinary symptoms. Medical records from [facility] reviewed: 03/26/2025 -- HCG trends recorded (03/17 -- 258, 03/19--276. 03/20--370. 03/21--342. 03/24--701. 03/25--568.), documented a 1gm Methotrexate given IM on 03/25/2025. 03/27/2025 -- TVUS with1.5cm unknown structure in the right adenxa, 03/27 -- HCG 543. 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 Reader Coma Scale Score: 15 ED Course & [...] Abnormality Status --------- ------ ED HIV 1/2 Antibody/Anti...[[id number]] Normal Final result Please view results for [...] 11:57 PM MDM: Patient seen by the [facility] physician and followed-up by myself. In summary: NARRATIVE: Patient is a 24-year-old female who presents with complaints of diffuse right-sided abdominal discomfort. Has been seen multiple times at [facility] and had HCGs done. Has not had an appropriate doubling. Was given a dose of IM methotrexate a couple of days ago. Had an ult rasound done earlier today which did still document a 1.5 cm mass in the right adnexa and hCG in the mid 500s. Patient otherwise had a reassuring exam and H&H and was discharged for outpatient technical systems architect follow-up. Was offered some hydroxyzine at that time, but deferred. Patient presented to our ER for 2nd opinion of her own accord. H&H stable. HCG still in the 600range. Transvaginal ultrasound does not note a right adnexal mass at this time. Given unclear hCG trend and patient concern, technical systems architect was consulted. Patient signed out pending final technical systems architect recommendations. Clinical Impressions as of 03/28/2533 of [...] mg Oral Given Ivana Loredo PA-C [employer]MR Dragon/Maintenance Millwright disclaimer: Much of this encounter note is an electronic manager chinese of spoken language to printed text. Electronic manager chinese of spoken language may permit erroneous, or [...] as able. Please increase your water intake. Wild Horse use of warm and/or cold compresses. Primary [...] here is available to you via the [email or web address] Internet portal. Please make sure that you are registered for access to this. Disposition Discharge AVS (Wolof Snapshot) - Printed 03/28/2025 Follow-Ups Go to Sarika Moyer APRN; As needed Follow up with [facility] Ob[facility]etric[facility]necology (Obstetrics and Gynecology) - [...] Reactive Non Reactive 03/27/2025 9:26 PM EDT [facility] Comment:Screening for HIV 1 & 2 antibodies, and P24 antigen is NONREACTIVE. No confirmatory testing is required. Blood Venous blood specimen / Unknown Venipuncture / Unknown 03/27/2025 8:31 PM EDT 03/27/2025 8:44 PM EDT Result [facility] us Rose Cortes MD LAB BLOOD ORDERABLES Final Resu lt [facility] [address] [place] [address] * Hepatitis C Antibody - ED (03/27/2025 8:31 PM EDT) Hepatitis C Antibody Negative Negative 03/27/2025 9:26 PM EDT [facility] Blood Venous blood specimen / Unknown Venipuncture / Unknown 03/27/2025 8:31 PM EDT 03/27/2025 8:44 PM EDT Result [facility] us Rose Cortes MD LAB BLOOD ORDERABLES Final Resu lt [facility] [address] [place] [address] * Type and screen (03/27/2025 8:31 PM [...] TEST ORDERABLES Final Result Performing Organization Address [facility] de Phone Number BLOOD BANK [address] [place] [address], [place] * (ABNORMAL) hCG, quantitative, (03/27/2025 8:31 PM EDT) hCG, Total Beta 626.2(H) <5 mIU/mL 03/27/2025 9:22 PM EDT [facility] Blood Venous blood specimen / Unknown Venipuncture / Unknown 03/27/2025 8:31 PM EDT 03/27/2025 8:41 PM EDT Narrative [facility] - 03/27/2025 9:22 PM [...] ORDERABLES Final Resu lt Performing Organization Address City/[facility]/ZIP Co de Phone Number [facility] [address] [place] [address] * (ABNORMAL) CBC w/diff (03/27/2025 8:31 PM EDT) WBC Count 11.76(H) 3.70 - 10.30 10*3/uL LAB HEMATOLOGY METHOD 03/27/2025 8:44 PM EDT [facility] RBC Count 4.82 3.90 - 5.20 10*6/uL LAB HEMATOLOGY METHOD 03/27/2025 8:44 PM EDT [facility] HGB 14.2 11.2 - 15.7 g/dL LAB HEMATOLOGY METHOD 03/27/2025 8:44 PM EDT [facility] HCT 39.9 34.0 - 45.0 % LAB HEMATOLOGY METHOD 03/27/2025 8:44 PM EDT [facility] Platelet Count 523(H) 155 - 369 10*3/uL LAB HEMATOLOGY METHOD 03/27/2025 8:44 PM EDT [facility] MCV 83 79 - 98 fL LAB HEMATOLOGY METHOD 03/27/2025 8:44 PM EDT [facility] MCH 29.5 26.0 - 32.0 pg LAB HEMATOLOGY METHOD 03/27/2025 8:44 PM EDT [facility] MCHC 35.6(H) 30.7 - 35.5 g/dL LAB HEMATOLOGY METHOD 03/27/2025 8:44 PM EDT [facility] RDW 12.2 11.5 - 14.5 % LAB HEMATOLOGY METHOD 03/27/2025 8:44 PM EDT [facility] MPV 9.3 8.8 - 12.5 fL LAB HEMATOLOGY METHOD 03/27/2025 8:44 PM EDT [facility] nRBC 0.0 <=0.0 per 100 WBCs LAB HEMATOLOGY METHOD 03/27/2025 8:44 PM EDT [facility] Differential Type Automated LAB HEMATOLOGY METHOD 03/27/2025 8:44 PM EDT [facility] Neutrophils % 71 % LAB HEMATOLOGY METHOD 03/27/2025 8:44 PM EDT [facility] Lymphocytes % 25 % LAB HEMATOLOGY METHOD 03/27/2025 8:44 PM EDT [facility] Monocytes % 4 % LAB HEMATOLOGY METHOD 03/27/2025 8:44 PM EDT [facility] Eosinophils % 0 % LAB HEMATOLOGY METHOD 03/27/2025 8:44 PM EDT [facility] Basophils % 0 % LAB HEMATOLOGY METHOD 03/27/2025 8:44 PM EDT [facility] Immature Granulocytes % 0 % LAB HEMATOLOGY METHOD 03/27/2025 8:44 PM EDT [facility] Neutrophils Absolute 8.17(H) 1.60 - 6.10 10*3/uL LAB HEMATOLOGY METHOD 03/27/2025 8:44 PM EDT [facility] Lymphocytes Absolute 2.96 1.20 - 3.90 10*3/uL LAB HEMATOLOGY METHOD 03/27/2025 8:44 PM EDT [facility] Monocytes Absolute 0.52 0.30 - 0.90 10*3/uL LAB HEMATOLOGY METHOD 03/27/2025 8:44 PM EDT [facility] Eosinophils Absolute 0.03 0.00 - 0.50 10*3/uL LAB HEMATOLOGY METHOD 03/27/2025 8:44 PM EDT [facility] Basophils Absolute 0.05 0.00 - 0.10 10*3/uL LAB HEMATOLOGY METHOD 03/27/2025 8:44 PM EDT [facility] Immature Granulocytes Absolute 0.03 0.00 - 0.06 10*3/uL LAB HEMATOLOGY METHOD 03/27/2025 8:44 PM EDT [facility] Blood Venous blood specimen / Unknown Venipuncture / Unknown 03/27/2025 8:31 PM EDT 03/27/2025 8:41 PM EDT Narrative [facility] - 03/27/2025 8:44 PM EDT Therapeutic decision making should be based on absolute values, rather than percentages. us Rose Cortes MD LAB BLOOD ORDERABLES Final Resu lt [facility] [address] [place] [address] * (ABNORMAL) CMP (03/27/2025 8:31 PM EDT) Glucose, Plasma 96 74 - 99 mg/dL 03/27/2025 9:22 PM EDT [facility] BUN, Plasma 11 7 - 21 mg/dL 03/27/2025 9:22 PM EDT [facility] Creatinine, Plasma 0.48(L) 0.60 - 1.10 mg/dL 03/27/2025 9:22 PM EDT [facility] BUN/Creatinine Ratio 23 03/27/2025 9:22 PM EDT [facility] Sodium, Plasma 136 136 - 145 mmol/L 03/27/2025 9:22 PM EDT [facility] Potassium, Plasma 3.1(L) 3.6 - 4.9 mmol/L 03/27/2025 9:22 PM EDT [facility] Chloride, Plasma 100 97 - 107 mmol/L 03/27/2025 9:22 PM EDT [facility] CO2, Plasma 20(L) 22 - 29 mmol/L 03/27/2025 9:22 PM EDT [facility] Anion Gap 16 6 - 16 mmol/L 03/27/2025 9:22 PM EDT [facility] Total Calcium, Plasma 9.8 8.9 - 10.2 mg/dL 03/27/2025 9:22 PM EDT [facility] Total Protein 7.7 6.3 - 7.9 g/dL 03/27/2025 9:22 PM EDT [facility] Albumin, Plasma 4.9 3.5 - 5.2 g/dL 03/27/2025 9:22 PM EDT [facility] AST, Plasma 17 10 - 35 U/L 03/27/2025 9:22 PM EDT [facility] ALT, Plasma 8(L) 10 - 35 U/L 03/27/2025 9:22 PM EDT [facility] Alkaline Phosphatase, Plasma 102 35 - 104 U/L 03/27/2025 9:22 PM EDT [facility] Total Bilirubin, Plasma 1.3(H) 0.2 - 1.1 mg/dL 03/27/2025 9:22 PM EDT [facility] eGFRcr 137.5 mL/min/1.7 3m*2 03/27/2025 9:22 PM EDT [facility] Comment:Reported eGFRcr in m L/min/1.73m2 is based the CKD-EPI 2020 equation that does not use a race coefficient. Blood Venous blood specimen / Unknown Venipuncture / Unknown 03/27/2025 8:31 PM EDT 03/27/2025 8:41 PM EDT us Rose Cortes MD LAB BLOOD ORDERABLES Final Resu lt [facility] [address] [place] [address] documented in this encounter Visit Diagnoses Diagnosis [...] Foss) documented in this encounter Care Teams Car Shunter Relationship Specialty Start Date End Date Sarika Moyer APRN [address] [place] [id number] PCP - General 10/14/20 documented as of this encounter
--- OUTSIDE RECORDS SUMMARY | 2025-04-05 22:43 | XMS_ITS | Encounter Summary ---
Author Organization [employer] ([place], [place], [place], [place], [place]) Address [address] [place] [address] Care Team Providers Care Customer Relations Consultant Name Role Phone Sarika Moyer APRN [...] EST - 04/06/2025 2:31 AM EST Emergency [facility] Emergency Department [address] [place] [phone] Keke Gar MD [address] [place] [address] Ectopic (Primary Dx) Discharge Disposition: Home or [...] be sent through Care Everywhere. * Ectopic [id number] ([place]alese) documented in this encounter ED Notes * [...] Color, UA Yellow Clarity, UA Clear Specific [place], UA 1.025 1.002 - 1.030 pH, UA [...] doctor Call today Next Steps: Follow up [facility] documented in this encounter Plan of Treatment [...] recommended. IMPRESSION: Authenticated and Keke Gar MD [facility] US ORDERABLES Edited Result - Final * (ABNORMAL) Comprehensive metabolic panel (04/05/2025 11:30 PM EST) Sodium 140 136 - 145 meq/L 04/06/2025 12:03 AM [facility] Potassium 3.3(L) 3.5 - 5.1 meq/L 04/06/2025 12:03 AM [facility] Chloride 102 98 - 107 meq/L 04/06/2025 12:03 AM [facility] CO2 25 21 - 32 meq/L 04/06/2025 12:03 AM [facility] Calcium 9.5 8.5 - 10.1 mg/dL 04/06/2025 12:03 AM [facility] Glucose 106(H) 74 - 100 mg/dL 04/06/2025 12:03 AM [facility] BUN 12 7 - 18 mg/dL 04/06/2025 12:03 AM [facility] Creatinine 0.60 0.55 - 1.10 mg/dL 04/06/2025 12:03 AM [facility] BUN/Creatinine 20 04/06/2025 12:03 AM [facility] Albumin 4.5 3.4 - 5.0 g/dL 04/06/2025 12:03 AM [facility] Alkaline Phosphatase 91 46 - 116 U/L 04/06/2025 12:03 AM [facility] ALT 10(L) 12 - 78 U/L 04/06/2025 12:03 AM [facility] AST 14(L) 15 - 37 U/L 04/06/2025 12:03 AM [facility] Total Bilirubin 0.3 0.2 - 1.0 mg/dL 04/06/2025 12:03 AM [facility] Protein, Total 8.0 6.4 - 8.2 gm/dL 04/06/2025 12:03 AM [facility] Anion Gap 16 11 - 22 04/06/2025 12:03 AM [facility] A/G Ratio 1.3 04/06/2025 12:03 AM [facility] Globulin 3.5 g/dL 04/06/2025 12:03 AM [facility] Osmolality Calc 279.6 mOsm/kg 12:03 AM [facility] eGFR (mL/min/1.73m2) >60 >=60 mL/min/1.7 3m2 04/06/2025 12:03 AM [facility] Comment:ESTIMATED GFR IS NOT ACCURATE CREATININE CLEARANCE IN PREDICTING GLOMERULAR FILTRATION RATE. ESTIMATED GFR IS NOT APPLICABLE FOR DIALYSIS PATIENTS. Blood Venipuncture / Unknown 04/05/2025 11:30 PM EST 04/05/2025 11:41 PM EST us eKke Gar MD LAB BLOOD ORDERABLES Lainey mckay Result [facility] [id number] [phone] * (ABNORMAL) CBC with Auto Diff (04/05/2025 11:30 PM EST) WBC 9.8 4.8 - 10.8 K/ L 04/05/2025 11:45 PM [facility] RBC 4.72 3.50 - 5.20 M/ L 04/05/2025 11:45 PM [facility] Hemoglobin 13.8 11.7 - 15.8 GM/DL 04/05/2025 11:45 PM [facility] Hematocrit 40.9 35.0 - 47.0 % 04/05/2025 11:45 PM [facility] MCV 87 81 - 101 fL 04/05/2025 11:45 PM [facility] MCH 29.2 27.0 - 34.0 pg 04/05/2025 11:45 PM [facility] MCHC 33.7 32.0 - 36.0 GM/DL 04/05/2025 11:45 PM [facility] RDW 13.1 11.5 - 14.5 % 04/05/2025 11:45 PM [facility] Platelets 511(H) 150 - 400 K/CU MM 04/05/2025 11:45 PM [facility] MPV 9.2(L) 9.4 - 12.4 fL 04/05/2025 11:45 PM [facility] Nucleated Red Blood Cell 0.0 0 - 0.2 % 04/05/2025 11:45 PM [facility] % Neutros 65 37 - 80 % 04/05/2025 11:45 PM [facility] % Lymphs 27 10 - 50 % 04/05/2025 11:45 PM [facility] % Monos 6 5 - 13 % 04/05/2025 11:45 PM [facility] % Eos 0.8 0.0 - 7.0 % 04/05/2025 11:45 PM [facility] % Baso 1 0 - 3 % 04/05/2025 11:45 PM [facility] NRBC Absolute <0.01 0 - 0.012 K/ul 04/05/2025 11:45 PM [facility] # Neutros 6.35 2.00 - 6.90 K/ L 04/05/2025 11:45 PM EST [facility] # Lymphs 2.68 0.60 - 3.40 K/ L 04/05/2025 11:45 PM EST [facility] # Monos 0.62 0.00 - 0.90 K/ L 04/05/2025 11:45 PM EST [facility] # Eos 0.08 0.00 - 0.70 K/ L 04/05/2025 11:45 PM EST [facility] # Baso 0.05 0.00 - 0.20 K/ L 04/05/2025 11:45 PM EST [facility] % Imm Grans 0.20 % 04/05/2025 11:45 PM EST [facility] # IG 0.02(H) 0.00 - 0.00 K/uL 04/05/2025 11:45 PM EST [facility] Blood Venipuncture / Unknown 04/05/2025 11:30 PM EST 04/05/2025 11:41 PM EST Narrative [facility] - 04/05/2025 11:45 PM EST [...] MD LAB BLOOD ORDERABLES Lainey l Result [facility] [address] [place], [place] [id number], [facility] [phone] * (ABNORMAL) Urinalysis w/Microscopic (04/05/2025 11:04 PM EST) Color, UA Yellow 04/05/2025 11:43 PM EST [facility] Clarity, UA Clear 04/05/2025 11:43 PM [facility] Specific [place], UA 1.025 1.002 - 1.030 04/05/2025 11:43 PM [facility] pH, UA 6.0 5.0 - 9.0 04/05/2025 11:43 PM [facility] Leukocytes, UA Negative Negative 04/05/2025 11:43 PM [facility] Nitrite, UA Negative Negative 04/05/2025 11:43 PM [facility] Protein, UA 1+(A) Negative 04/05/2025 11:43 PM [facility] Glucose, UA Negative Negative 04/05/2025 11:43 PM [facility] Ketones, UA Trace(A) Negative 04/05/2025 11:43 PM [facility] Urobilinogen, UA 0.2 mg/dL Normal 04/05/2025 11:43 PM [facility] Bilirubin, UA Negative Negative 04/05/2025 11:43 PM [facility] Blood, UA 3+(A) Negative 04/05/2025 11:43 PM [facility] RBC, UA 5-10(A) None Seen, Rare /HPF 04/05/2025 11:43 PM [facility] WBC, UA 0-5 None Seen, Occasional , 0-5 /HPF 04/05/2025 11:43 PM [facility] Bacteria, UA 2+(A) None Seen 04/05/2025 11:43 PM [facility] Mucus 1+(A) Trace 04/05/2025 11:43 PM [facility] SQUAMOUS EPITHELIAL 0-5(A) None Seen, Rare /HPF 04/05/2025 11:43 PM [facility] Ca Oxalate [place], UA 2+(A) (none) 04/05/2025 11:43 PM [facility] Specimen Source Urine, Clean Catch 04/05/2025 11:43 PM [facility] Urine URINE SPECIMEN COLLECTION, CLEAN CATCH / Unknown 04/05/2025 11:04 PM EST 04/05/2025 11:04 PM EST us Keke Gar MD URINE ORDERABLES Final Re sult [facility] [address] [id number], [facility] [phone] documented in this encounter Visit Diagnoses Diagnosis Ectopic - Primary Unspecified ectopic without intrauterine documented in this encounter Care Teams Customer Relations Consultant Relationship Specialty Start Date End Date Sarika Moyer, [employer]INT [employer] [address] [place] [address] PCP - General Nurse Practitioner 04/05/25 documented as of this encounter
--- OUTSIDE RECORDS SUMMARY | 2025-04-10 23:39 | XMS_ITS | Encounter Summary ---
Author Organization [email or web address] ([place], [place], [place], [place], [place]) Address [address] [place] [address] Care Team Providers Care School Cleaner Name Role Phone Sarika Moyer LOCATION WORKER Primary Care Provider + Reason for Visit [...] EST - 04/11/2025 5:09 AM EST Emergency [facility] Emergency Department [address] [place] [phone] Farzad Stiles MD [address] [place] [address] Ectopic (Primary Dx); Hypokalemia Discharge Disposition: Home [...] Follow-up with your primary care doctor or lens molding equipment operator, call for appointment. Return to the emergency department for any new or worsening symptoms. HGUARD * Attachments The following attachments cannot be sent through Care Everywhere. * Hypokalemia (British) * Ectopic [id number] (British) documented in this encounter ED Notes * [...] 2. Hypokalemia Farzad Stiles MD 04/11/25 0508 HGUARD documented in this encounter Plan of Treatment [...] sac. IMPRESSION: Authenticated and Farzad Stiles MD [facility] ORDERABLES Edited Result - Final * hCG, quantitative, (04/11/2025 1:20 AM EST) HCG Serum Quant 133 mIU/mL 1:58 AM EST [facility] Comment: Results of the HCG quant [...] MD LAB BLOOD ORDERABLES Final Resu lt [facility] [address] [place] [address] * (ABNORMAL) Comprehensive metabolic panel (04/11/2025 1:20 AM EST) Sodium 142 136 - 145 meq/L 04/11/2025 1:58 AM EST [facility] Potassium 3.1(L) 3.5 - 5.1 meq/L 04/11/2025 1:58 AM EST [facility] Chloride 105 98 - 107 meq/L 04/11/2025 1:58 AM EST [facility] CO2 28 21 - 32 meq/L 04/11/2025 1:58 AM EST [facility] Calcium 9.0 8.5 - 10.1 mg/dL 04/11/2025 1:58 AM EST [facility] Glucose 105(H) 74 - 100 mg/dL 04/11/2025 1:58 AM EST [facility] BUN 11 7 - 18 mg/dL 04/11/2025 1:58 AM EST [facility] Creatinine 0.61 0.55 - 1.10 mg/dL 04/11/2025 1:58 AM [facility] BUN/Creatinine 18 04/11/2025 1:58 AM [facility] Albumin 3.9 3.4 - 5.0 g/dL 04/11/2025 1:58 AM [facility] Alkaline Phosphatase 78 46 - 116 U/L 04/11/2025 1:58 AM [facility] ALT 12 12 - 78 U/L 04/11/2025 1:58 AM [facility] AST 11(L) 15 - 37 U/L 04/11/2025 1:58 AM [facility] Total Bilirubin 0.4 0.2 - 1.0 mg/dL 04/11/2025 1:58 AM [facility] Protein, Total 7.1 6.4 - 8.2 gm/dL 04/11/2025 1:58 AM [facility] Anion Gap 12 11 - 22 04/11/2025 1:58 AM [facility] A/G Ratio 1.2 04/11/2025 1:58 AM [facility] Globulin 3.2 g/dL 04/11/2025 1:58 AM [facility] Osmolality Calc 282.9 mOsm/kg 1:58 AM [facility] eGFR (mL/min/1.73m2) >60 >=60 mL/min/1.7 3m2 04/11/2025 1:58 AM [facility] Comment:ESTIMATED GFR IS NOT ACCURATE CREATININE CLEARANCE IN PREDICTING GLOMERULAR FILTRATION RATE. ESTIMATED GFR IS NOT APPLICABLE FOR DIALYSIS PATIENTS. Blood Venipuncture / Unknown 04/11/2025 1:20 AM EST 04/11/2025 1:23 AM EST us Farzad Stiles MD LAB BLOOD ORDERABLES Final Resu lt [facility] [address] [place] [address], [facility] [phone] * (ABNORMAL) CBC with Auto Diff (04/11/2025 1:20 AM [facility]) WBC 7.3 4.8 - 10.8 K/ L 04/11/2025 1:27 AM [facility] RBC 4.32 3.50 - 5.20 M/ L 04/11/2025 1:27 AM [facility] Hemoglobin 12.7 11.7 - 15.8 GM/DL 04/11/2025 1:27 AM [facility] Hematocrit 37.8 35.0 - 47.0 % 04/11/2025 1:27 AM [facility] MCV 88 81 - 101 fL 04/11/2025 1:27 AM [facility] MCH 29.4 27.0 - 34.0 pg 04/11/2025 1:27 AM [facility] MCHC 33.6 32.0 - 36.0 GM/DL 04/11/2025 1:27 AM [facility] RDW 13.2 11.5 - 14.5 % 04/11/2025 1:27 AM [facility] Platelets 432(H) 150 - 400 K/CU MM 04/11/2025 1:27 AM [facility] MPV 9.1(L) 9.4 - 12.4 fL 04/11/2025 1:27 AM [facility] Nucleated Red Blood Cell 0.0 0 - 0.2 % 04/11/2025 1:27 AM [facility] % Neutros 55 37 - 80 % 04/11/2025 1:27 AM [facility] % Lymphs 34 10 - 50 % 04/11/2025 1:27 AM [facility] % Monos 9 5 - 13 % 04/11/2025 1:27 AM [facility] % Eos 1.5 0.0 - 7.0 % 04/11/2025 1:27 AM [facility] % Baso 1 0 - 3 % 04/11/2025 1:27 AM [facility] NRBC Absolute <0.01 0 - 0.012 K/ul 04/11/2025 1:27 AM EST [facility] # Neutros 4.04 2.00 - 6.90 K/ L 04/11/2025 1:27 AM EST [facility] # Lymphs 2.51 0.60 - 3.40 K/ L 04/11/2025 1:27 AM EST [facility] # Monos 0.62 0.00 - 0.90 K/ L 04/11/2025 1:27 AM EST [facility] # Eos 0.11 0.00 - 0.70 K/ L 04/11/2025 1:27 AM EST [facility] # Baso 0.04 0.00 - 0.20 K/ L 04/11/2025 1:27 AM EST [facility] % Imm Grans 0.10 % 04/11/2025 1:27 AM EST [facility] # IG 0.01(H) 0.00 - 0.00 K/uL 04/11/2025 1:27 AM EST [facility] Blood Venipuncture / Unknown 04/11/2025 1:20 AM EST 04/11/2025 1:23 AM EST Narrative [facility] - 04/11/2025 1:27 AM EST When [...] MD LAB BLOOD ORDERABLES Final Resu lt [facility] [address] [place], [place] [address] [phone] documented in this encounter Visit Diagnoses Diagnosis [...] hours 0419 (Given - Provid er: Andie Umnaa) Potassium bicarbonate (EFFER-K) disintegrating tablet (COMPLETED) 50 [...] access) documented in this encounter Care Teams School Cleaner Relationship Specialty Start Date End Date Sarika Moyer, LOCATION WORKER [address] [place] [address] PCP - General Nurse Practitioner 04/05/25 documented as of this encounter
--- OUTSIDE RECORDS SUMMARY | 2025-04-18 19:23 | XMS_ITS | Encounter Summary ---
Author Organization [employer] ([place], [place], [place], [place], [place]) Address [address] [place] [address] Care Team Providers Care Helpdesk Manager Name Role Phone Sarika Moyer SUPERVISOR CASE LOADING Primary Care Provider + Reason for Visit * Reason Comments Vaginal Bleeding Pt was diagnosed wit h an ectopic on March 25. States she is passing clots today. HCG was 11 yesterday. Encounter Details Date Type Department Care Team (Late st Contact Info) Description 04/18/2025 7:23 PM EST - 04/18/2025 9:25 PM EST Emergency [facility] Emergency Department [address] [place] [phone] Toy Egan MD [address] [place] [address] Vaginal bleeding (Primary Dx) Discharge Disposition: Home [...] through Care Everywhere. * Abnormal Uterine Bleeding [id number] (Colombian) documented in this encounter ED Notes * [...] Relationship: PCP - General [address] [facility] [address] Next Steps: Schedule an appointment as soon as possible for a visit in 2 day(s) Electronically Signed By Toy Egan MD 04/18/252118 CUTTER documented in this encounter Plan of Treatment Not on file documented as of this encounter Procedures Procedure Name Priority Date/Time Associated Diagnosis Comments HCG, QUANTITATIVE, STAT 04/18/2025 8:19 PM EST documented in this encounter Results * hCG, quantitative, (04/18/2025 8:19 PM EST) Pathologist [facility] HCG Serum Quant 6 mIU/mL 9:06 PM EST [facility] Comment: Results of the HCG quant [...] EST 04/18/2025 8:23 PM EST us Toy Eagn MD LAB BLOOD ORDERABLES Final Resu lt [facility] [address] [place] [address], [facility] [phone] documented in this encounter Visit Diagnoses Diagnosis Vaginal bleeding- Primary Other specified noninflammatory disorder of vagina documented in this encounter Care Teams Helpdesk Manager Relationship Specialty Start Date End Date Sarika Moyer, SUPERVISOR CASE LOADING [address] [place] [address] PCP - General Nurse Practitioner 04/05/25 documented as of this encounter
--- OUTSIDE RECORDS SUMMARY | 2025-04-29 18:54 | XMS_ITS | Encounter Summary ---
Author Organization [employer] ([place], [place], [place], [place], [place]) Address [address] [place] [address] Care Team Providers Care Group Home Supervisor Name Role Phone Sarika Moyer COVER STRIPPER Primary Care Provider + Reason for Visit * Reason Comments Abdominal Pain Pt c/o abdominal zion n. Pt had a ectopic . Encounter Details Date Type Department Care Team (Late st Contact Info) Description 04/29/2025 6:54 PM EST - 04/29/2025 10:26 PM EST Emergency [facility] Emergency Department [address] [place] [phone] Zara Ross MD [address] [place] [address] Periumbilical abdominal pain (Primary Dx) Discharge Disposition: Home or Self [...] Sign Reading Time Taken Comments Blood Pressure 105/82 04/29/2025 9:30 PM EST Pulse 69 04/29/2025 9:30 PM EST Temperature 36.6 C (97.8 F) 04/29/2025 7:00 PM EST Respiratory Rate 18 04/29/2025 7:00 PM EST Oxygen Saturation 100% 04/29/2025 9:30 PM EST Inhaled Oxygen Concentration - - Weight 39 kg (86 lb) 04/29/2025 7:00 PM EST Height 144.8 cm (4' 9 ) 04/29/2025 7:00 PM EST Body Mass Index 18.61 04/29/2025 7:00 PM EST documented in this encounter Discharge Instructions * Discharge Instructions* Zara Ross MD - 04/29/2025 9:46 PM EST You were seen in the emergency department for abdominal pain. Your CAT scan was reassuring. Please follow-up with your primary care doctor and with your NODULIZER. Please return to the emergency department if you have absolutely any concerns at any time. OPERATOR documented in this encounter ED Notes * Zara Ross MD - 04/29/2025 7:02 PM EST Subjective Chief Complaint: Abdominal Pain (Pt c/o abdominal pain. Pt had a ectopic . ) HPI This is a 25-year-old female presenting to the emergency department with a chief complaint of periumbilical abdominal pain for the last 2 days. The patient reports that she had a recent ectopic on March 25. She received methotrexate. She did not require any surgical procedure. She reports that her vaginal bleeding has since stopped. She is not having any vaginal discharge. She denies any fevers or chills. No vomiting. No diarrhea. She denies any back pain. No urinary symptoms. She does report that sometimes it feels like there is pain under her rib cage when she takes a deep breath. She reports that she has followed up with NODULIZER and she reports that her hCG trended to negative range. She tells me that they are waiting for her to have 1 more negative hCG before she has a repeat ultrasound. She reports that she is very concerned regarding the ectopic and is concerned that it could come back. Patient History Past Medical History: Diagnosis Date [...] Systems Review of Systems Constitutional: Negative for chills and fever. HENT: Negative for congestion. Respiratory: Negative for cough and shortness of breath. Cardiovascular: Negative for chest pain. Gastrointestinal: Positive for abdominal pain. Negative for diarrhea, nausea and vomiting. Genitourinary: Negative for dysuria, flank pain, hematuria, vaginal bleeding and vaginal discharge. Musculoskeletal: Negative for back pain. Skin: Negative for rash. Neurological: Negative for syncope. Psychiatric/Behavioral: Negative for confusion. Physical Exam ED Triage Vitals [04/29/25 1900] Encounter Vitals Group BP 121/82 Girls Systolic BP Percentile Girls Diastolic BP Percentile Boys Systolic BP Percentile Boys Diastolic BP Percentile Pulse 91 Resp 18 Temp 97.8 ??F (36.6 ??C) Temp src Tympanic SpO2 99 % Weight 39 kg (86 lb) Height 1.448 m (4' 9 ) Head Circumference Peak Flow Pain Score Five Pain Loc Pain Education Exclude from Growth Chart Physical Exam Vitals reviewed. Constitutional: General: She is not in acute distress. Appearance: She is not ill-appearing, toxic-appearing or diaphoretic. Comments: anxious HENT: Head: Normocephalic and atraumatic. Mouth/Throat: Mouth: Mucous membranes are moist. Eyes: Extraocular Movements: Extraocular movements intact. Cardiovascular: Rate and Rhythm: Normal rate. Pulmonary: Effort: Pulmonary effort is normal. Breath sounds: Normal breath sounds. Abdominal: General: Abdomen is flat. Palpations: Abdomen is soft. Tenderness: There is abdominal tenderness in the periumbilical area. There is no right CVA tenderness, left CVA tenderness, guarding or rebound. Skin: General: Skin is warm. Neurological: General: No focal deficit present. Mental Status: She is alert. Neurological Exam Mental Status Alert. Cranial Nerves CN III, IV, : Extraocular movements intact bilaterally. Ortho Exam ED Course & MDM 25-year-old female presenting to the emergency department with a chief complaint of periumbilical pain, recent ectopic now status post methotrexate. In the emergency department she is awake, alert, she is anxious, she is not clinically ill-appearing. Vital signs are within normal limits. Heart is regular, lungs are clear, her abdomen is soft and there is minimal discomfort with palpation around the bellybutton. No hernia. No rebound or guarding. No CVA tenderness. Differential diagnosis includes but is not limited to gastritis, biliary pathology, appendicitis, amongst others. As the patient reports that sometimes it feels like the pain is underneath her rib cage will screen with D-dimer, cardiac enzymes, EKG however low suspicion for cardiopulmonary etiology of symptoms. Patient declined CT contrast stating that multiple people in her family have contrast allergy. She was offered premedication however she declined and does not want the contrast. She understands that this will be limited study without. CT of the abdomen and pelvis negative for acute pathology. No leukocytosis, LFTs are within normal limits, lipase is normal. D-dimer and troponin are within normal limits. Patient does have a few bacteria on her urinalysis however she has no urinary symptoms, suspect that this is more likely to be contaminated. hCG is negative today. Patient tells me that she has had one other recent draw that was negative and normal and that she is actually scheduled to see OBGYN on Saturday at which time they were planning to redraw her HCG. It is negative today. Given completely negative value, do not suspect ectopic as the etiology of symptoms and do not feel patient requires emergent ultrasound (ultrasound is not available in this facility overnight). Patient relieved to know HCG is negative and she will follow up with OB on Saturday. Abdominal exam remains non surgical and in the setting of reassuring CT do feel that patient can be safely discharged. Strict return precautions discussed. Medications - No data to display Results for orders placed or performed during the hospital encounter of 04/29/25 CBC with Auto Diff Result Value Ref Range WBC 9.4 4.8 - 10.8 K/??L RBC 4.73 3.50 - 5.20 M/??L Hemoglobin 13.7 11.7 - 15.8 GM/DL Hematocrit 41.2 35.0 - 47.0 % MCV 87 81 - 101 fL MCH 29.0 27.0 - 34.0 pg MCHC 33.3 32.0 - 36.0 GM/DL RDW 12.9 11.5 - 14.5 % Platelets 501 (H) 150 - 400 K/CU MM MPV 9.1 (L) 9.4 - 12.4 fL Nucleated Red Blood Cell 0.0 0 - 0.2 % % Neutros 64 37 - 80 % % Lymphs 28 10 - 50 % % Monos 7 5 - 13 % % Eos 0.5 0.0 - 7.0 % % Baso 0 0 - 3 % NRBC Absolute <0.01 0 - 0.012 K/ul # Neutros 6.04 2.00 - 6.90 K/??L # Lymphs 2.60 0.60 - 3.40 K/??L # Monos 0.69 0.00 - 0.90 K/??L # Eos 0.05 0.00 - 0.70 K/??L # Baso 0.04 0.00 - 0.20 K/??L % Imm Grans 0.10 % # IG 0.01 (H) 0.00 - 0.00 K/uL hCG, quantitative, Result Value Ref Range HCG Serum Quant 1 mIU/mL Comprehensive metabolic panel Result Value Ref Range Sodium 140 136 - 145 meq/L Potassium 3.6 3.5 - 5.1 meq/L Chloride 102 98 - 107 meq/L CO2 29 21 - 32 meq/L Calcium 9.6 8.5 - 10.1 mg/dL Glucose 89 74 - 100 mg/dL BUN 12 7 - 18 mg/dL Creatinine 0.54 (L) 0.55 - 1.10 mg/dL BUN/Creatinine 22 Albumin 4.5 3.4 - 5.0 g/dL Alkaline Phosphatase 97 46 - 116 U/L ALT 12 12 - 78 U/L AST 12 (L) 15 - 37 U/L Total Bilirubin 0.3 0.2 - 1.0 mg/dL Protein, Total 8.1 6.4 - 8.2 gm/dL Anion Gap 13 11 - 22 A/G Ratio 1.3 Globulin 3.6 g/dL Osmolality Calc 278.6 mOsm/kg eGFR (mL/min/1.73m2) >60 >=60 mL/min/1.73m2 Lipase Result Value Ref Range Lipase 40 16 - 77 U/L Urinalysis, Reflex Microscopic and Culture If Indicated Result Value Ref Range Color, UA Light Yellow Clarity, UA Turbid Specific [place], UA 1.020 1.002 - 1.030 pH, UA 7.0 5.0 - 9.0 Leukocytes, UA Negative Negative Nitrite, UA Negative Negative Protein, UA Trace (A) Negative Glucose, UA Negative Negative Ketones, UA Negative Negative Bilirubin, UA Negative Negative Blood, UA Negative Negative Urobilinogen, UA 0.2 mg/dL Normal Specimen Source Urine, Clean Catch High Sensitivity Troponin I Result Value Ref Range Troponin I High Sensitivity (pg/mL) <4 (L) 4 - 60.3 pg/mL D-dimer Result Value Ref Range D-Dimer, Quant ([facility]) 140.69 <=500.00 ng/mL FEU Urinalysis Microscopic Only Result Value Ref Range WBC, UA Occasional None Seen, Occasional , 0-5 /HPF RBC, UA None Seen None Seen, Rare /HPF Bacteria, UA 2+ (A) None Seen Amorphous Crystals 2+ (A) None Seen, Trace SQUAMOUS EPITHELIAL Occasional (A) None Seen, Rare /HPF ECG 12 lead Result Value Ref Range VENTRICULAR RATE EKG/MIN 78 BPM ATRIAL RATE (MCT) 78 BPM IN Interval 116 ms QRS-INTERVAL (MSEC) 80 ms QT Interval 376 ms QTC Interval 428 ms P [place] 52 degrees R AXIS (MCT) -52 degrees T Wave [place] 43 degrees [place] Diagnosis Normal sinus rhythm Left anterior fascicular block Cannot rule out Anterior infarct , age undetermined Confirmed by Rema RINALDI, ARLETH ([id number]) on 05/01/2025 3:51:[address] ABDOMEN/PELVIS WITHOUT IV CONTRAST Standard Protocol Final Result 1. No evidence of urinary tract stone disease or hydronephrosis. 2. No evidence of bowel obstruction This study was performed using dose reduction techniques to achieve radiation exposure as low as reasonably achievable (ALARA) ED Course as of 05/03/25 1658 Tess Apr 29, 2025 2246 EKG is normal sinus rhythm with a rate of 78, IN 116, QRS 80, QTc 428, I do not appreciate anyST segment elevation, no STEMI [KB] ED Course User Index [KB] Zara Ross MD Procedures Medical Decision Making Amount and/or Complexity of Data Reviewed Labs: ordered. Radiology: ordered. ECG/medicine tests: ordered. Assessment & Plan Clinical Impression Diagnosis Comment Added By Time Added Periumbilical abdominal pain Zara Ross MD 04/29/2025 9:46 PM Disposition Discharge [1] - 04/29/2025 9:46 PM There are no discharge medications for this patient. Contact information for follow-up Sarika Moyer APRN Specialty: Nurse Practitioner Relationship: PCP - General [address] [place] [address] Next Steps: Follow up Electronically Signed By Zara Ross MD 05/03/25 1658 OPERATOR documented in this encounter Plan of Treatment Not on file documented as of this encounter Procedures Procedure Name Priority Date/Time Associated Diagnosis Comments CT ABDOMEN/PELVIS WITHOUT IV CONTRAST STAT 04/29/2025 8:42 PM EST FS_MODEL_IP_ECG 12-LEAD STAT 04/29/2025 7:34 PM EST URINALYSIS, REFLEX MICROSCOPIC AND CULTURE IF INDICATED STAT 04/29/2025 7:34 PM EST URINALYSIS MICROSCOPIC STAT 7:34 PM EST CBC W/ AUTO DIFF STAT 04/29/2025 7:31 PM EST HIGH SENSITIVITY TROPONIN I STAT 04/29/2025 7:31 PM EST D-DIMER STAT 04/29/2025 7:31 PM EST HCG, QUANTITATIVE, STAT 04/29/2025 7:31 PM EST LIPASE STAT 04/29/2025 7:31 PM EST COMPREHENSIVE METABOLIC PANEL STAT 04/29/2025 7:31 PM EST documented in this encounter Results * CT ABDOMEN/PELVIS WITHOUT IV CONTRAST Standard Protocol (04/29/2025 8:42 PM EST) Anatomical Region Laterality Modality Abdomen, Pelvis Computed Tomogra phy (CT) 04/29/2025 8:55 PM EST Impressions 04/29/2025 8:57 PM EST 1. No evidence of urinary tract stone disease or hydronephrosis. 2. No evidence of bowel obstruction This study was performed using dose reduction techniques to achieve radiation exposure as low as reasonably achievable (ALARA) Narrative 04/29/2025 8:[address] ABDOMEN AND PELVIS, WITHOUT CONTRAST. HISTORY: Unlisted Reason for Exam periumbilical pain COMPARISON: None Note: Noncontrast exam is less sensitive for assessment of the bowel and solid abdominal organs. TECHNIQUE: Noncontrast exam CT ABDOMEN: Solid organs are unremarkable. The bowel shows no evidence of obstruction. There is no free air or free fluid within the abdomen. CT PELVIS: No bowel dilatation is seen. There is no free fluid. Appendix is normal. Uterus and ovaries are unremarkable. Bladder has a normal appearance. Procedure Note Darius Tapia MD - 04/29/2025 CT ABDOMEN AND PELVIS, WITHOUT CONTRAST. HISTORY: Unlisted Reason for Exam periumbilical pain COMPARISON: None Note: Noncontrast exam is less sensitive for assessment of the bowel and solid abdominal organs. TECHNIQUE: Noncontrast exam CT ABDOMEN: Solid organs are unremarkable. The bowel shows no evidence of obstruction. There is no free air or free fluid within the abdomen. CT PELVIS: No bowel dilatation is seen. There is no free fluid. Appendix is normal. Uterus and ovaries are unremarkable. Bladder has a normal appearance. IMPRESSION: 1. No evidence of urinary tract stone disease or hydronephrosis. 2. No evidence of bowel obstruction This study was performed using dose reduction techniques to achieve radiation exposure as low as reasonably achievable (ALARA) us Zara Ross MD IMG CT ORDERABLES Final R esult * ECG 12 lead (04/29/2025 7:34 PM EST) VENTRICULAR RATE EKG/MIN 78 BPM GE MUSE ATRIAL RATE (MCT) 78 BPM GE MUSE IN Interval 116 ms GE MUSE QRS-INTERVAL (MSEC) 80 ms GE MUSE QT Interval 376 ms GE MUSE QTC Interval 428 ms GE MUSE P [place] 52 degrees GE MUSE R AXIS (MCT) -52 degrees GE MUSE T Wave [place] 43 degrees GE MUSE [place] Diagnosis Normal sinus rhythm Left anterior fascicular block Cannot rule out Anterior infarct , age undetermined Confirmed by Rema RINALDI, ARLETH ([id number]) on 05/01/2025 3:51:47 PM GE MUSE 04/29/2025 7:34 PM EST 05/01/2025 3:51 PM EST us Zara Ross MD ECG ORDERABLES Final Res ult GE MUSE * (ABNORMAL) Urinalysis Microscopic Only (04/29/2025 7:34 PM EST) WBC, UA Occasional None Seen, Occasional , 0-5 /HPF 04/29/2025 7:55 PM EST [facility] RBC, UA None Seen None Seen, Rare /HPF 04/29/2025 7:55 PM EST [facility] Bacteria, UA 2+(A) None Seen 04/29/2025 7:55 PM EST [facility] Amorphous Crystals 2+(A) None Seen, Trace 04/29/2025 7:55 PM EST [facility] SQUAMOUS EPITHELIAL Occasional(A) None Seen, Rare /HPF 04/29/2025 7:55 PM EST [facility] Urine URINE SPECIMEN COLLECTION, CLEAN CATCH / Unknown 04/29/2025 7:34 PM EST 04/29/2025 7:40 PM EST us Zara Ross MD URINE ORDERABLES Final Re sult Performing Organization Address City/[facility]/ZIP Co de Phone Number [facility] [address] [place] [address] * (ABNORMAL) Urinalysis, Reflex Microscopic and Culture If Indicated (04/29/2025 7:34 PM EST) Color, UA Light Yellow 04/29/2025 7:54 PM EST [facility] Clarity, UA Turbid 04/29/2025 7:54 PM EST [facility] Specific [place], UA 1.020 1.002 - 1.030 04/29/2025 7:54 PM EST [facility] pH, UA 7.0 5.0 - 9.0 04/29/2025 7:54 PM EST [facility] Leukocytes, UA Negative Negative 04/29/2025 7:54 PM EST [facility] Nitrite, UA Negative Negative 04/29/2025 7:54 PM EST [facility] Protein, UA Trace(A) Negative 04/29/2025 7:54 PM EST [facility] Glucose, UA Negative Negative 04/29/2025 7:54 PM EST [facility] Ketones, UA Negative Negative 04/29/2025 7:54 PM EST [facility] Bilirubin, UA Negative Negative 04/29/2025 7:54 PM EST [facility] Blood, UA Negative Negative 04/29/2025 7:54 PM EST [facility] Urobilinogen, UA 0.2 mg/dL Normal 04/29/2025 7:54 PM EST [facility] Specimen Source Urine, Clean Catch 04/29/2025 7:54 PM EST [facility] Urine URINE SPECIMEN COLLECTION, CLEAN CATCH / Unknown 04/29/2025 7:34 PM EST 04/29/2025 7:40 PM EST us Zara Ross MD URINE ORDERABLES Final Re sult [facility] [address] [place] [address] * D-dimer (04/29/2025 7:31 PM EST) D-Dimer, Quant ([facility] SJE) 140.69 <=500.00 ng/mL FEU 04/29/2025 8:13 PM EST [facility] Comment: A normal D-dimer result <500 ng/mL (FEU) has a negative predictive value of approximately 95% for the exclusion of acute pulmonary embolism (PE) or deep vein thrombosis when there is low or moderate pretest PE probability. D-dimer Normal Rates First trimester: 50-950 ng/mL (FEU) Second trimester: 302-1290 ng/mL (FEU) Third trimester: 130-1700 ng/mL (FEU) Blood Venipuncture / Unknown 04/29/2025 7:31 PM EST 04/29/2025 7:40 PM EST Zara Ross MD LAB BLOOD ORDERABLES Lainey l Result Performing Organization Address City/[facility] Co de Phone Number [facility] [address] [place] [address] * (ABNORMAL) High Sensitivity Troponin I (04/29/2025 7:31 PM EST) Troponin I High Sensitivity (pg/mL) <4(L) 4 - 60.3 pg/mL 04/29/2025 8:08 PM EST [facility] Comment: Troponin Result (pg/mL) *Interpretation 4-60.3 *Normal; less than 99th percentile of normal range >60.3 *Abnormal; greater than 99th percentile of normal range Biotin specimen concentration >300 ng/mL may lead to falsely depressed results for patient samples. Do not use this test for renal dysfunction patients (eGFR <60) unless it is confirmed that the patient is not taking Biotin. Blood Venipuncture / Unknown 04/29/2025 7:31 PM EST 04/29/2025 7:40 PM EST Result [facility] Zara Ross MD LAB BLOOD ORDERABLES Lainey l Result Performing Organization Address City/[facility]/ZIP Co de Phone Number [facility] [address] [place] [address] * Lipase (04/29/2025 7:31 PM EST) Lipase 40 16 - 77 U/L 04/29/2025 8:07 PM EST [facility] Blood Venipuncture / Unknown 04/29/2025 7:31 PM EST 04/29/2025 7:40 PM EST Zara Ross MD LAB BLOOD ORDERABLES Lainey l Result [facility] [address] [place] [address], [facility] [phone] * (ABNORMAL) Comprehensive metabolic panel (04/29/2025 7:31 PM EST) Sodium 140 136 - 145 meq/L 04/29/2025 8:07 PM [facility] Potassium 3.6 3.5 - 5.1 meq/L 04/29/2025 8:07 PM [facility] Chloride 102 98 - 107 meq/L 04/29/2025 8:07 PM [facility] CO2 29 21 - 32 meq/L 04/29/2025 8:07 PM [facility] Calcium 9.6 8.5 - 10.1 mg/dL 04/29/2025 8:07 PM [facility] Glucose 89 74 - 100 mg/dL 04/29/2025 8:07 PM [facility] BUN 12 7 - 18 mg/dL 04/29/2025 8:07 PM [facility] Creatinine 0.54(L) 0.55 - 1.10 mg/dL 04/29/2025 8:07 PM [facility] BUN/Creatinine 22 04/29/2025 8:07 PM [facility] Albumin 4.5 3.4 - 5.0 g/dL 04/29/2025 8:07 PM [facility] Alkaline Phosphatase 97 46 - 116 U/L 04/29/2025 8:07 PM [facility] ALT 12 12 - 78 U/L 04/29/2025 8:07 PM [facility] AST 12(L) 15 - 37 U/L 04/29/2025 8:07 PM [facility] Total Bilirubin 0.3 0.2 - 1.0 mg/dL 04/29/2025 8:07 PM [facility] Protein, Total 8.1 6.4 - 8.2 gm/dL 04/29/2025 8:07 PM [facility] Anion Gap 13 11 - 04/29/2025 8:07 PM [facility] A/G Ratio 1.3 04/29/2025 8:07 PM [facility] Globulin 3.6 g/dL 04/29/2025 8:07 PM [facility] Osmolality Calc 278.6 mOsm/kg 8:07 PM [facility] eGFR (mL/min/1.73m2) >60 >=60 mL/min/1.7 3m2 04/29/2025 8:07 PM [facility] Comment:ESTIMATED GFR IS NOT ACCURATE CREATININE CLEARANCE IN PREDICTING GLOMERULAR FILTRATION RATE. ESTIMATED GFR IS NOT APPLICABLE FOR DIALYSIS PATIENTS. Blood Venipuncture / Unknown 04/29/2025 7:31 PM EST 04/29/2025 7:40 PM EST Zara Ross MD LAB BLOOD ORDERABLES Lainey mckay Result [facility] [address] [place] [address] * hCG, quantitative, (04/29/2025 7:31 PM EST) HCG Serum Quant 1 mIU/mL 8:07 PM [facility] Comment: Results of the [...] 2-3 months 10,000-100,000 Blood Venipuncture / Unknown 04/29/2025 7:31 PM EST 04/29/2025 7:40 PM EST us Zara Ross MD LAB BLOOD ORDERABLES Lainey nely Result [facility] [address] [place] [id number], [facility] [phone] * (ABNORMAL) CBC with Auto Diff (04/29/2025 7:31 PM EST) WBC 9.4 4.8 - 10.8 K/ L 04/29/2025 7:44 PM [facility] RBC 4.73 3.50 - 5.20 M/ L 04/29/2025 7:44 PM [facility] Hemoglobin 13.7 11.7 - 15.8 GM/DL 04/29/2025 7:44 PM [facility] Hematocrit 41.2 35.0 - 47.0 % 04/29/2025 7:44 PM [facility] MCV 87 81 - 101 fL 04/29/2025 7:44 PM [facility] MCH 29.0 27.0 - 34.0 pg 04/29/2025 7:44 PM [facility] MCHC 33.3 32.0 - 36.0 GM/DL 04/29/2025 7:44 PM [facility] RDW 12.9 11.5 - 14.5 % 04/29/2025 7:44 PM [facility] Platelets 501(H) 150 - 400 K/CU MM 04/29/2025 7:44 PM [facility] MPV 9.1(L) 9.4 - 12.4 fL 04/29/2025 7:44 PM [facility] Nucleated Red Blood Cell 0.0 0 - 0.2 % 04/29/2025 7:44 PM [facility] % Neutros 64 37 - 80 % 04/29/2025 7:44 PM [facility] % Lymphs 28 10 - 50 % 04/29/2025 7:44 PM EST [facility] % Monos 7 5 - 13 % 04/29/2025 7:44 PM EST [facility] % Eos 0.5 0.0 - 7.0 % 04/29/2025 7:44 PM EST [facility] % Baso 0 0 - 3 % 04/29/2025 7:44 PM EST [facility] NRBC Absolute <0.01 0 - 0.012 K/ul 04/29/2025 7:44 PM EST [facility] # Neutros 6.04 2.00 - 6.90 K/ L 04/29/2025 7:44 PM [facility] # Lymphs 2.60 0.60 - 3.40 K/ L 04/29/2025 7:44 PM [facility] # Monos 0.69 0.00 - 0.90 K/ L 04/29/2025 7:44 PM EST [facility] # Eos 0.05 0.00 - 0.70 K/ L 04/29/2025 7:44 PM EST [facility] # Baso 0.04 0.00 - 0.20 K/ L 04/29/2025 7:44 PM [facility] % Imm Grans 0.10 % 04/29/2025 7:44 PM [facility] # IG 0.01(H) 0.00 - 0.00 K/uL 04/29/2025 7:44 PM EST [facility] Blood Venipuncture / Unknown 04/29/2025 7:31 PM EST 04/29/2025 7:40 PM EST Narrative [facility] - 04/29/2025 7:44 PM EST When CBC w/ Auto Diff [...] Flag noted Atypical Lymph flag noted us Zara Ross MD LAB BLOOD ORDERABLES Lainey mckay Result [facility] [address] [phone] documented in this encounter Visit Diagnoses Diagnosis Periumbilical abdominal pain- Primary Abdominal pain, periumbilic documented in this encounter Care Teams Group Home Supervisor Relationship Specialty Start Date End Date Sarika Moyer, COVER STRIPPER [address] [place] [address] PCP - General Nurse Practitioner 04/05/25 documented as of this encounter
--- OUTSIDE RECORDS SUMMARY | 2025-05-05 21:58 | XMS_ITS | Encounter Summary ---
Author Organization [facility] [employer] ([place], [place], [place], [place], [place]) Address [address] [place] [address] Care Team Providers Care Marketing Services Manager Name Role Phone Sarika Moyer DIRECTOR OF MARKETING AND PROMOTIONS Primary Care Provider + Reason for Visit * Reason Comments Neck Pain Pt c/o neck pain brook t started this morning. Denies injury. Encounter Details Date Type Department Care Team (Late st Contact Info) Description 05/05/2025 9:58 PM EST - 05/05/2025 10:08 PM EST Emergency [facility] Emergency Department [address] [place] [phone] Keke Gar MD [address] [place] [address] Cervical paraspinal muscle spasm (Primary Dx) Discharge [...] Care Everywhere. * Muscle Cramps and Spasms (Pashto) documented in this encounter Medications at Time [...] UA Light Yellow Clarity, UA Turbid Specific [place], UA 1.020 1.002 - 1.030 pH, UA [...] 78 BPM ATRIAL RATE (MCT) 78 BPM RI Interval 116 ms QRS-INTERVAL (MSEC) 80 ms QT Interval 376 ms QTC Interval 428 ms P [place] 52 degrees R AXIS (MCT) -52 degrees T Wave [place] 43 degrees [place] Diagnosis Normal sinus rhythm Left anterior fascicular [...] Relationship: PCP - General [address] [facility] [address] Next Steps: Schedule an appointment as soon as possible for a visit [facility] Emergency Department Specialty: Emergency Medicine [address] [facility] [phone] Next Steps: Follow up Instructions: As needed, If symptoms worsen Electronically Signed By Judith Vital PA-C 05/05/252200 Judith Vital PA-C 05/05/252206 Cosigned by Keke Gar MD at 05/05/2025 10:08 PM EST HERER HERER HERER Associated attestation - Keke Gar MD - 05/05/2025 9:08 PM FEATHERER Based on the medical record, the care [...] Ruiz) documented in this encounter Care Teams Marketing Services Manager Relationship Specialty Start Date End Date Sarika Moyer, DIRECTOR OF MARKETING AND PROMOTIONS [address] [phone] PCP - General Nurse Practitioner 04/05/25 documented as of this encounter
--- OUTSIDE RECORDS SUMMARY | 2025-05-09 08:03 | XMS_ITS | Encounter Summary ---
Author Organization [employer] ([place], [place], [place], [place], [place]) Address [address] [place] [address] Care Team Providers Care Retirement Consultant Name Role Phone Sarika Moyer SAFETY COUNCIL DIRECTOR Primary Care Provider + Reason for Visit * Reason Comments Neck Pain Pt reports twisting her neck Saturday while putting on a hoodie. Still c/o pain in neck. Encounter Details Date Type Department Care Team (Late st Contact Info) Description 05/09/2025 8:03 AM EST - 05/09/2025 10:03 AM EST Emergency [facility] Emergency Department [address] [place] [phone] Elsa Morton MD [address] [place] [address] Neck pain on right side (Primary Dx); [...] Care Everywhere. * General Headache Without Cause [id number] (Cambodian) * Cervical Sprain (Cambodian) * Panic Attack Bzbj-sg-Kiam (Cambodian) * Somatic Symptom Disorder (Cambodian) documented in this encounter Medications at Time [...] Dr. Cheyanne May. Transcribed by Liyah Syed ED Course [...] Nurse Practitioner Relationship: PCP - General [address] [address] Next Steps: Call in 1 day(s) Instructions: Please call your PCP and follow-up appropriately Sachin Holliday MD Psychiatry [phone] [address] [place], [place] [place] [address] [email or web address] Next Steps: Call in 1 day(s) Instructions: This is the name of a psychiatrist in [place] who sees them specifically overall patient's and offers online services for anxiety and depression. Please call this phone number to schedule follow-up. He accepts Medicare/Medicaid as well as other insurances. Electronically Signed By Elsa Morton MD 05/09/25 1007 TIVE SERVICES DIRECTOR documented in this encounter Plan of [...] by Dr. Cheyanne May. Transcribed by Liyah ySed Narrative 05/09/2025 9:58 AM EST CERVICAL SPINE [...] Transcribed by Liyah Syed Elsa Morton MD [facility] DIAGNOSTIC IMAGING ORDERABL ES Final Result * [...] Headache documented in this encounter Care Teams Retirement Consultant Relationship Specialty Start Date End Date Sarika Moyer, SAFETY COUNCIL DIRECTOR [address] [place] [phone] PCP - General Nurse Practitioner 04/05/25 documented as of this encounter
[2025-05-21 17:24] VITALS: BP 134/99; PULSE 103; RESP 18; TEMP 37.2; O2SAT 99; BMI 18.3
--- OUTSIDE RECORDS SUMMARY | 2025-05-21 17:36 | XMS_ITS | Encounter Summary ---
Author Organization [facility] Address [address] [id number] Care Team Providers Care Injection Molding Process Technician Name Role Phone Sarika Moyer [employer] FINANCE SALES REP Primary Care Provider + Encounter Details Date [...] on filedocumented in this encounter Care Teams Injection Molding Process Technician Relationship Specialty Start Date End Date Sarika Moyer, AUTO FINANCE SALES REP [address] [place] [address] PCP - General 10/14/20 documented as of this encounter
--- OUTSIDE RECORDS SUMMARY | 2025-05-21 17:37 | XMS_ITS | Encounter Summary ---
Author Organization [employer] ([place], [place], [place], [place], [place]) Address [address] [place] [address] Care Team Providers Care District Manager Name Role Phone Sarika Moyer RESIDENTIAL BUILDER Primary Care Provider + Encounter Details Date [...] on filedocumented in this encounter Care Teams District Manager Relationship Specialty Start Date End Date Sarika Moyer APRN [address] [place] [address] PCP - General Nurse Practitioner 04/05/25 documented as of this encounter
--- OUTSIDE RECORDS SUMMARY | 2025-05-21 17:37 | XMS_ITS | Encounter Summary ---
Author Organization [employer] ([place], [place], [place], [place], [place]) Address [address] [place] [address] Care Team Providers Care Developmental Education Instructor Name Role Phone Sarika Moyer RD PROJECT MANAGER Primary Care Provider + Encounter Details Date Type Department Care Team (Latest Contact Info) Description 05/05/2025 Travel Social History Tobacco Use Types Packs/Day [...] on filedocumented in this encounter Care Teams Developmental Education Instructor Relationship Specialty Start Date End Date Sarika Moyer APRN [address] [place] [address] PCP - General Nurse Practitioner 04/05/25 documented as of this encounter
--- OUTSIDE RECORDS SUMMARY | 2025-05-21 17:37 | XMS_ITS | Referral Summary ---
Author Organization [employer] ([place], [place], [place], [place], [place]) Address [address] [place] [address] Care Team Providers Care Surveillance Operator Name Role Phone Sarika Moyer HARDWARE SUPPLIES SALES REPRESENTATIVE Primary Care Provider + Encounters Date Type Department Care Team Description 05/09/2025 Travel 05/09/2025 8:03 AM EST - 05/09/2025 10:03 AM EST Emergency [facility] [address] [place], [place] [phone] Elsa Morton MD Neck pain on right side (Primary Dx); Headache Discharge Disposition: Home or Self Care 05/05/2025 Travel 05/05/2025 9:58 PM EST - 05/05/2025 10:08 PM EST Emergency [facility] [address] [place], [place] [phone] Keke Gar MD Cervical paraspinal muscle spasm (Primary Dx) Discharge Disposition: Home or Self Care 04/29/2025 Travel 04/29/2025 6:54 PM EST - 04/29/2025 10:26 PM EST Emergency [facility] [address] [place], [place] [phone] Zara Ross MD Periumbilical abdominal pain (Primary Dx) Discharge Disposition: Home or Self Care 04/18/2025 Travel 04/18/2025 7:23 PM EST - 04/18/2025 9:25 PM EST Emergency [facility] [address] [place], [place] [phone] Toy Egan MD Vaginal bleeding (Primary Dx) Discharge Disposition: Home or Self Care 04/10/2025 11:39 PM EST - 04/11/2025 5:09 AM EST Emergency [facility] [address] [place] [address] Farzad Stiles MD Ectopic (Primary Dx); Hypokalemia Discharge Disposition: Home or Self Care 04/10/2025 Travel 04/05/2025 10:43 PM EST - 04/06/2025 2:31 AM EST Emergency [facility] [address] [place] [address] Keke Gar MD Ectopic (Primary Dx) Discharge Disposition: Home or Self Care 04/05/2025 Travel from Last 3 Months Allergies Active Allergy Reactions Criticality Noted Date Comments Escitalopram 04/05/2025 Acetaminophen-Dm 04/05/2025 Medications methocarbamoL (ROBAXIN) 500 MG tablet Take 1 tablet (500 mg total) by mouth 4 (four) times daily as needed for muscle spasms for up to 5 days. 20 tablet 05/05/2025 05/10/20 25 hydrOXYzine (ATARAX) 25 MG tablet Take 1 tablet (25 mg total) by mouth every 8 (eight) hours as needed for itching for up to 10 days Look-alike /Sound-alike medication . 30 tablet 05/09/2025 05/19/20 25 Social History Tobacco Use Types Packs/Day Years [...] Mass Index 17.96 05/09/2025 8:09 AM EST Plan of Treatment Not on file Procedures Procedure Name Priority Date/Time Associated Diagnosis Comments XR SPINE CERVICAL 2 OR 3 VIEWS STAT 05/09/2025 8:[address] BRAIN WITHOUT IV CONTRAST STAT 05/09/2025 8:[address] ABDOMEN/PELVIS WITHOUT IV CONTRAST STAT 04/29/2025 [...] EST from Last 3 Months Results * XR spine cervical 2 or [...] Transcribed by Liyah Syed Elsa Morton MD IM DIAGNOSTIC IMAGING ORDERABL ES Final Result * [...] Transcribed by Liyah Syed Elsa Morton MD [facility] ORDERABLES Final Result * CT ABDOMEN/PELVIS WITHOUT IV CONTRAST Standard [...] exposure as low as reasonably achievable (ALARA) Zara Ross MD [facility] ORDERABLES Final R esult * ECG 12 lead (04/29/2025 7:34 PM EST) VENTRICULAR RATE EKG/MIN 78 BPM GE MUSE ATRIAL RATE (MCT) 78 BPM GE MUSE [place] Interval 116 ms GE MUSE QRS-INTERVAL (MSEC) 80 ms GE MUSE QT Interval 376 ms GE MUSE QTC Interval 428 ms GE MUSE P [place] 52 degrees GE MUSE R AXIS (MCT) -52 degrees GE MUSE T Wave [place] 43 degrees GE MUSE [place] Diagnosis Normal sinus rhythm Left anterior fascicular [...] UA Light Yellow 04/29/2025 7:54 PM EST [facility] Clarity, UA Turbid 04/29/2025 7:54 PM EST [facility] Specific [place], UA 1.020 1.002 - 1.030 04/29/2025 7:54 PM EST [facility] pH, UA 7.0 5.0 - 9.0 04/29/2025 7:54 PM EST [facility] Leukocytes, UA Negative Negative 04/29/2025 7:54 PM EST [facility] Nitrite, UA Negative Negative 04/29/2025 7:54 PM EST [facility] Protein, UA Trace(A) Negative 04/29/2025 7:54 PM EST [facility] Glucose, UA Negative Negative 04/29/2025 7:54 PM EST [facility] Ketones, UA Negative Negative 04/29/2025 7:54 PM EST [facility] Bilirubin, UA Negative Negative 04/29/2025 7:54 PM EST [facility] Blood, UA Negative Negative 04/29/2025 7:54 PM EST [facility] Urobilinogen, UA 0.2 mg/dL Normal 04/29/2025 7:54 PM EST [facility] Specimen Source Urine, Clean Catch 04/29/2025 7:54 PM EST [facility] Urine URINE SPECIMEN COLLECTION, CLEAN CATCH / Unknown 04/29/2025 7:34 PM EST 04/29/2025 7:40 PM EST us Zara Ross MD URINE ORDERABLES Final Re sult [facility] [address] [place] [address] * (ABNORMAL) Urinalysis Microscopic Only (04/29/2025 7:34 PM EST) WBC, UA Occasional None Seen, Occasional , 0-5 /HPF 04/29/2025 7:55 PM [facility] RBC, UA None Seen None Seen, Rare /HPF 04/29/2025 7:55 PM EST [facility] Bacteria, UA 2+(A) None Seen 04/29/2025 7:55 PM [facility] Amorphous Crystals 2+(A) None Seen, Trace 04/29/2025 7:55 PM EST [facility] SQUAMOUS EPITHELIAL Occasional(A) None Seen, Rare /HPF 04/29/2025 7:55 PM EST [facility] Urine URINE SPECIMEN COLLECTION, CLEAN CATCH / Unknown 04/29/2025 7:34 PM EST 04/29/2025 7:40 PM EST us Zara Ross MD URINE ORDERABLES Final Re sult [facility] [address] [place] [address] * (ABNORMAL) CBC with Auto Diff (04/29/2025 7:31 PM EST) Only the most recent of3 resultswithin the time period is included. WBC 9.4 4.8 - 10.8 K/ L 04/29/2025 7:44 PM [facility] RBC 4.73 3.50 - 5.20 M/ L 04/29/2025 7:44 PM [facility] Hemoglobin 13.7 11.7 - 15.8 GM/DL 04/29/2025 7:44 PM [facility] Hematocrit 41.2 35.0 - 47.0 % 04/29/2025 7:44 PM [facility] MCV 87 81 - 101 fL 04/29/2025 7:44 PM [facility] MCH 29.0 27.0 - 34.0 pg 04/29/2025 7:44 PM [facility] MCHC 33.3 32.0 - 36.0 GM/DL 04/29/2025 7:44 PM [facility] RDW 12.9 11.5 - 14.5 % 04/29/2025 7:44 PM [facility] Platelets 501(H) 150 - 400 K/CU MM 04/29/2025 7:44 PM [facility] MPV 9.1(L) 9.4 - 12.4 fL 04/29/2025 7:44 PM [facility] Nucleated Red Blood Cell 0.0 0 - 0.2 % 04/29/2025 7:44 PM [facility] % Neutros 64 37 - 80 % 04/29/2025 7:44 PM [facility] % Lymphs 28 10 - 50 % 04/29/2025 7:44 PM [facility] % Monos 7 5 - 13 % 04/29/2025 7:44 PM [facility] % Eos 0.5 0.0 - 7.0 % 04/29/2025 7:44 PM [facility] % Baso 0 0 - 3 % 04/29/2025 7:44 PM [facility] NRBC Absolute <0.01 0 - 0.012 K/ul 04/29/2025 7:44 PM EST [facility] # Neutros 6.04 2.00 - 6.90 K/ L 04/29/2025 7:44 PM EST [facility] # Lymphs 2.60 0.60 - 3.40 K/ L 04/29/2025 7:44 PM EST [facility] # Monos 0.69 0.00 - 0.90 K/ L 04/29/2025 7:44 PM EST [facility] # Eos 0.05 0.00 - 0.70 K/ L 04/29/2025 7:44 PM EST [facility] # Baso 0.04 0.00 - 0.20 K/ L 04/29/2025 7:44 PM EST [facility] % Imm Grans 0.10 % 04/29/2025 7:44 PM EST [facility] # IG 0.01(H) 0.00 - 0.00 K/uL 04/29/2025 7:44 PM EST [facility] Blood Venipuncture / Unknown 04/29/2025 7:31 PM EST 04/29/2025 7:40 PM EST Narrative [facility] - 04/29/2025 7:44 [...] MD LAB BLOOD ORDERABLES Lainey mckay Result [facility] [address] [place], [place] [address] [phone] * (ABNORMAL) High Sensitivity Troponin I (04/29/2025 7:31 PM EST) Troponin I High Sensitivity (pg/mL) <4(L) 4 - 60.3 pg/mL 04/29/2025 8:08 PM EST [facility] Comment: Troponin Result [...] ORDERABLES Lainey l Result Performing Organization Address [facility] Co de Phone Number [facility] [address] [place] [address] * D-dimer (04/29/2025 7:31 PM EST) D-Dimer, Quant ([facility]) 140.69 <=500.00 ng/mL FEU 04/29/2025 8:13 PM EST [facility] Comment: A normal [...] ORDERABLES Lainey l Result Performing Organization Address [facility]/ZIP Co de Phone Number [facility] [address] [place] [address] * hCG, quantitative, (04/29/2025 7:31 PM EST) Only the most recent of3 resultswithin the time period is included. Pathologist [facility] HCG Serum Quant 1 mIU/mL 8:07 PM EST [facility] Comment: Results of [...] MD LAB BLOOD ORDERABLES Lainey l Result [facility] [address] [place] [address] * Lipase (04/29/2025 7:31 PM EST) [facility] Lipase 40 16 - 77 U/L 04/29/2025 8:07 PM EST [facility] Blood Venipuncture / Unknown 04/29/2025 7:31 PM EST 04/29/2025 7:40 PM EST Zara Ross MD LAB BLOOD ORDERABLES Lainey l Result [facility] [address] [place] [address] * (ABNORMAL) Comprehensive metabolic panel (04/29/2025 7:31 PM EST) Only the most recent of3 resultswithin the time period is included. Sodium 140 136 - 145 meq/L 04/29/2025 8:07 PM [facility] Potassium 3.6 3.5 - 5.1 meq/L 04/29/2025 8:07 PM [facility] Chloride 102 98 - 107 meq/L 04/29/2025 8:07 PM [facility] CO2 29 21 - 32 meq/L 04/29/2025 8:07 PM [facility] Calcium 9.6 8.5 - 10.1 mg/dL 04/29/2025 8:07 PM [facility] Glucose 89 74 - 100 mg/dL 04/29/2025 8:07 PM [facility] BUN 12 7 - 18 mg/dL 04/29/2025 8:07 PM [facility] Creatinine 0.54(L) 0.55 - 1.10 mg/dL 04/29/2025 8:07 PM [facility] BUN/Creatinine 22 04/29/2025 8:07 PM [facility] Albumin 4.5 3.4 - 5.0 g/dL 04/29/2025 8:07 PM [facility] Alkaline Phosphatase 97 46 - 116 U/L 04/29/2025 8:07 PM [facility] ALT 12 12 - 78 U/L 04/29/2025 8:07 PM [facility] AST 12(L) 15 - 37 U/L 04/29/2025 8:07 PM [facility] Total Bilirubin 0.3 0.2 - 1.0 mg/dL 04/29/2025 8:07 PM [facility] Protein, Total 8.1 6.4 - 8.2 gm/dL 04/29/2025 8:07 PM [facility] Anion Gap 13 11 - 22 04/29/2025 8:07 PM [facility] A/G Ratio 1.3 04/29/2025 8:07 PM EST [facility] Globulin 3.6 g/dL 04/29/2025 8:07 PM EST [facility] Osmolality Calc 278.6 mOsm/kg 8:07 PM EST [facility] eGFR (mL/min/1.73m2) >60 >=60 mL/min/1.7 3m2 04/29/2025 8:07 PM EST [facility] Comment:ESTIMATED GFR IS NOT ACCURATE CREATININE CLEARANCE IN PREDICTING GLOMERULAR FILTRATION RATE. ESTIMATED GFR IS NOT APPLICABLE FOR DIALYSIS PATIENTS. Blood Venipuncture / Unknown 04/29/2025 7:31 PM EST 04/29/2025 7:40 PM EST us Zara Ross MD LAB BLOOD ORDERABLES Lainey mckay Result [facility] [address] [place] [address] * US OB transvaginal (04/11/2025 2:29 AM [...] sac. IMPRESSION: Authenticated and Farzad Stiles MD [facility] ORDERABLES Edited Result - Final * (ABNORMAL) Urinalysis w/Microscopic (04/05/2025 11:04 PM EST) Color, UA Yellow 04/05/2025 11:43 PM [facility] Clarity, UA Clear 04/05/2025 11:43 PM [facility] Specific [place], UA 1.025 1.002 - 1.030 04/05/2025 11:43 PM [facility] pH, UA 6.0 5.0 - 9.0 04/05/2025 11:43 PM [facility] Leukocytes, UA Negative Negative 04/05/2025 11:43 PM [facility] Nitrite, UA Negative Negative 04/05/2025 11:43 PM [facility] Protein, UA 1+(A) Negative 04/05/2025 11:43 PM [facility] Glucose, UA Negative Negative 04/05/2025 11:43 PM [facility] Ketones, UA Trace(A) Negative 04/05/2025 11:43 PM [facility] Urobilinogen, UA 0.2 mg/dL Normal 04/05/2025 11:43 PM [facility] Bilirubin, UA Negative Negative 04/05/2025 11:43 PM [facility] Blood, UA 3+(A) Negative 04/05/2025 11:43 PM [facility] RBC, UA 5-10(A) None Seen, Rare /HPF 04/05/2025 11:43 PM [facility] WBC, UA 0-5 None Seen, Occasional , 0-5 /HPF 04/05/2025 11:43 PM [facility] Bacteria, UA 2+(A) None Seen 04/05/2025 11:43 PM [facility] Mucus 1+(A) Trace 04/05/2025 11:43 PM EST [facility] SQUAMOUS EPITHELIAL 0-5(A) None Seen, Rare /HPF 04/05/2025 11:43 PM EST [facility] Ca Oxalate [place], UA 2+(A) (none) 04/05/2025 11:43 PM EST [facility] Specimen Source Urine, Clean Catch 04/05/2025 11:43 PM EST [facility] Urine URINE SPECIMEN COLLECTION, CLEAN CATCH / Unknown 04/05/2025 11:04 PM EST 04/05/2025 11:04 PM EST us Keke Gar MD URINE ORDERABLES Final Re sult [facility] [address] [id number], [facility] [phone] from Last [address] [facility] Care Teams Surveillance Operator Relationship Specialty Start Date End Date Sarika Moyer, HARDWARE [employer] SALES REPRESENTATIVE [address] [place] [address] PCP - General Nurse Practitioner 04/05/25
--- OUTSIDE RECORDS SUMMARY | 2025-05-21 17:37 | XMS_ITS | Clinical Summary ---
Author Organization Healthcare Address [address] [phone] Care Team Providers Care Chip Unloader Name Role Phone Sarika Moyer PETROLEUM SAMPLER Primary Care Provider + Allergies Active Allergy Reactions Criticality Noted Date Comments Escitalopram Anaphylaxis High 03/27/2025 Robitussin Dm Max Day-Night Anxiety Low 03/27/20 Medications No known medications Active Problems Comments Yes No known active problems Encounters Date Type Department Care Team Description 03/27/2025 8:35 PM EDT - 03/28/2025 1:22 AM EDT Emergency [facility] Emergency Department [address] [place] [address] Rose Cortes MD of unknown anatomic location (Primary Dx) Discharge Disposition: Home or Self Care 03/27/2025 Travel 03/17/2025 Telephone Obstetrics & Gynecology [address] [place] [phone] Chiki Cardenas MD from Last 3 [...] 10/19/2024 10/19/2014, 05/21/2006, 08/26/2003, Additional history exists [id number] Vaccine ( - season) 2025 UKY-Influenza Vaccine [...] Reactive Non Reactive 03/27/2025 9:26 PM EDT [facility] Comment:Screening for HIV 1 & 2 antibodies, and P24 antigen is NONREACTIVE. No confirmatory testing is required. Blood Venous blood specimen / Unknown Venipuncture / Unknown 03/27/2025 8:31 PM EDT 03/27/2025 8:44 PM EDT Rose Cortes MD LAB BLOOD ORDERABLES Final Resu lt [facility] [address] [place] [address] * Hepatitis C Antibody - ED (03/27/2025 8:31 PM EDT) Hepatitis C Antibody Negative Negative 03/27/2025 9:26 PM EDT [facility] Blood Venous blood specimen / Unknown Venipuncture / Unknown 03/27/2025 8:31 PM EDT 03/27/2025 8:44 PM EDT us Rose Cortes MD LAB BLOOD ORDERABLES Final Resu lt [facility] [address] [place] [address] * (ABNORMAL) CBC w/diff (03/27/2025 8:31 PM EDT) Pathologist [facility] WBC Count 11.76(H) 3.70 - 10.30 10*3/uL LAB HEMATOLOGY METHOD 03/27/2025 8:44 PM EDT [facility] RBC Count 4.82 3.90 - 5.20 10*6/uL LAB HEMATOLOGY METHOD 03/27/2025 8:44 PM EDT [facility] HGB 14.2 11.2 - 15.7 g/dL LAB HEMATOLOGY METHOD 03/27/2025 8:44 PM EDT [facility] HCT 39.9 34.0 - 45.0 % LAB HEMATOLOGY METHOD 03/27/2025 8:44 PM EDT [facility] Platelet Count 523(H) 155 - 369 10*3/uL LAB HEMATOLOGY METHOD 03/27/2025 8:44 PM EDT [facility] MCV 83 79 - 98 fL LAB HEMATOLOGY METHOD 03/27/2025 8:44 PM EDT [facility] MCH 29.5 26.0 - 32.0 pg LAB HEMATOLOGY METHOD 03/27/2025 8:44 PM EDT [facility] MCHC 35.6(H) 30.7 - 35.5 g/dL LAB HEMATOLOGY METHOD 03/27/2025 8:44 PM EDT [facility] RDW 12.2 11.5 - 14.5 % LAB HEMATOLOGY METHOD 03/27/2025 8:44 PM EDT [facility] MPV 9.3 8.8 - 12.5 fL LAB HEMATOLOGY METHOD 03/27/2025 8:44 PM EDT [facility] nRBC 0.0 <=0.0 per 100 WBCs LAB HEMATOLOGY METHOD 03/27/2025 8:44 PM EDT [facility] Differential Type Automated LAB HEMATOLOGY METHOD 03/27/2025 8:44 PM EDT [facility] Neutrophils % 71 % LAB HEMATOLOGY METHOD 03/27/2025 8:44 PM EDT [facility] Lymphocytes % 25 % LAB HEMATOLOGY METHOD 03/27/2025 8:44 PM EDT [facility] Monocytes % 4 % LAB HEMATOLOGY METHOD 03/27/2025 8:44 PM EDT [facility] Eosinophils % 0 % LAB HEMATOLOGY METHOD 03/27/2025 8:44 PM EDT [facility] Basophils % 0 % LAB HEMATOLOGY METHOD 03/27/2025 8:44 PM EDT [facility] Immature Granulocytes % 0 % LAB HEMATOLOGY METHOD 03/27/2025 8:44 PM EDT [facility] Neutrophils Absolute 8.17(H) 1.60 - 6.10 10*3/uL LAB HEMATOLOGY METHOD 03/27/2025 8:44 PM EDT [facility] Lymphocytes Absolute 2.96 1.20 - 3.90 10*3/uL LAB HEMATOLOGY METHOD 03/27/2025 8:44 PM EDT [facility] Monocytes Absolute 0.52 0.30 - 0.90 10*3/uL LAB HEMATOLOGY METHOD 03/27/2025 8:44 PM EDT [facility] Eosinophils Absolute 0.03 0.00 - 0.50 10*3/uL LAB HEMATOLOGY METHOD 03/27/2025 8:44 PM EDT [facility] Basophils Absolute 0.05 0.00 - 0.10 10*3/uL LAB HEMATOLOGY METHOD 03/27/2025 8:44 PM EDT [facility] Immature Granulocytes Absolute 0.03 0.00 - 0.06 10*3/uL LAB HEMATOLOGY METHOD 03/27/2025 8:44 PM EDT [facility] Blood Venous blood specimen / Unknown Venipuncture / Unknown 03/27/2025 8:31 PM EDT 03/27/2025 8:41 PM EDT Narrative [facility] - 03/27/2025 8:44 PM EDT Therapeutic decision making should be based on absolute values, rather than percentages. Rose Cortes MD LAB BLOOD ORDERABLES Final Resu lt Performing Organization Address City/[facility]/ZIP Co de Phone Number [facility] [address] [place] [address] * Type and screen (03/27/2025 8:31 PM [...] Organization Address [facility] de Phone Number BLOOD BANK [address] [place] [address] * (ABNORMAL) hCG, quantitative, (03/27/2025 8:31 PM EDT) hCG, Total Beta 626.2(H) <5 mIU/mL 03/27/2025 9:22 PM EDT [facility] Blood Venous blood specimen / Unknown Venipuncture / Unknown 03/27/2025 8:31 PM EDT 03/27/2025 8:41 PM EDT Narrative [facility] - 03/27/2025 9:22 PM [...] MD LAB BLOOD ORDERABLES Final Resu lt [facility] [address] [place] [address] * (ABNORMAL) CMP (03/27/2025 8:31 PM EDT) Glucose, Plasma 96 74 - 99 mg/dL 03/27/2025 9:22 PM EDT [facility] BUN, Plasma 11 7 - 21 mg/dL 03/27/2025 9:22 PM EDT [facility] Creatinine, Plasma 0.48(L) 0.60 - 1.10 mg/dL 03/27/2025 9:22 PM EDT [facility] BUN/Creatinine Ratio 23 03/27/2025 9:22 PM EDT [facility] Sodium, Plasma 136 136 - 145 mmol/L 03/27/2025 9:22 PM EDT [facility] Potassium, Plasma 3.1(L) 3.6 - 4.9 mmol/L 03/27/2025 9:22 PM EDT [facility] Chloride, Plasma 100 97 - 107 mmol/L 03/27/2025 9:22 PM EDT [facility] CO2, Plasma 20(L) 22 - 29 mmol/L 03/27/2025 9:22 PM EDT [facility] Anion Gap 16 6 - 16 mmol/L 03/27/2025 9:22 PM EDT [facility] Total Calcium, Plasma 9.8 8.9 - 10.2 mg/dL 03/27/2025 9:22 PM EDT [facility] Total Protein 7.7 6.3 - 7.9 g/dL 03/27/2025 9:22 PM EDT [facility] Albumin, Plasma 4.9 3.5 - 5.2 g/dL 03/27/2025 9:22 PM EDT [facility] AST, Plasma 17 10 - 35 U/L 03/27/2025 9:22 PM EDT [facility] ALT, Plasma 8(L) 10 - 35 U/L 03/27/2025 9:22 PM EDT [facility] Alkaline Phosphatase, Plasma 102 35 - 104 U/L 03/27/2025 9:22 PM EDT [facility] Total Bilirubin, Plasma 1.3(H) 0.2 - 1.1 mg/dL 03/27/2025 9:22 PM EDT [facility] eGFRcr 137.5 mL/min/1.7 3m*2 03/27/2025 9:22 PM EDT [facility] Comment:Reported eGFRcr in m L/min/1.73m2 is based the CKD-EPI 2020 equation that does not use a race coefficient. Blood Venous blood specimen / Unknown Venipuncture / Unknown 03/27/2025 8:31 PM EDT 03/27/2025 8:41 PM EDT us Rose Cortes MD LAB BLOOD ORDERABLES Final Resu lt [facility] [address] [place] [address] from Last 3 Months Insurance [facility]ICA[facility] Care Teams Chip Unloader Relationship Specialty Start Date End Date Sarika Moyer APRN [address] [place] [id number] PCP - General 10/14/20
--- OUTSIDE RECORDS SUMMARY | 2025-05-21 17:37 | XMS_ITS | Encounter Summary ---
Author Organization [employer] ([place], [place], [place], [place], [place]) Address [address] [place] [address] Care Team Providers Care Analyst Programmer Name Role Phone Sarika Moyer DIRECTOR OF HOME CARE HOSPICE Primary Care Provider + Encounter Details Date [...] on filedocumented in this encounter Care Teams Analyst Programmer Relationship Specialty Start Date End Date Sarika Moyer APRN [address] [place] [address] PCP - General Nurse Practitioner 04/05/25 documented as of this encounter
--- OUTSIDE RECORDS SUMMARY | 2025-05-21 17:37 | XMS_ITS | Encounter Summary ---
Author Organization [employer] ([place], [place], [place], [place], [place]) Address [address] [place] [address] Care Team Providers Care Maintenance Custodian Name Role Phone Sarika Moyer CANE FLUME WATCHER Primary Care Provider + Encounter Details Date [...] on filedocumented in this encounter Care Teams Maintenance Custodian Relationship Specialty Start Date End Date Sarika Moyer APRN [address] [place] [address] PCP - General Nurse Practitioner 04/05/25 documented as of this encounter
--- OUTSIDE RECORDS SUMMARY | 2025-05-21 17:37 | XMS_ITS | Clinical Summary ---
Author Organization [employer] ([place], [place], [place], [place], [place]) Address [address] [place] [address] Care Team Providers Care Marine Geologist Name Role Phone Sarika Moyer WATERPROOFING MACHINE OPERATOR Primary Care Provider + Allergies [...] medication . 30 tablet 05/09/2025 05/19/20 25 Encounters Date Type Department Care Team Description 05/09/2025 8:03 AM EST - 05/09/2025 10:03 AM EST Emergency [facility] Emergency Department [address] [place] [phone] Elsa Morton MD Neck pain on right side (Primary Dx); Headache Discharge Disposition: Home or Self Care 05/09/2025 Travel 05/05/2025 9:58 PM EST - 05/05/2025 10:08 PM EST Emergency [facility] Emergency Department [address] [place] [phone] Keke Gar MD Cervical paraspinal muscle spasm (Primary Dx) Discharge Disposition: Home or Self Care 05/05/2025 Travel 04/29/2025 6:54 PM EST - 04/29/2025 10:26 PM EST Emergency [facility] Emergency Department [address] [place] [phone] Zara Ross MD Periumbilical abdominal pain (Primary Dx) Discharge Disposition: Home or Self Care 04/29/2025 Travel 04/18/2025 7:23 PM EST - 04/18/2025 9:25 PM EST Emergency [facility] Emergency Department [address] [place] [phone] Toy Egan MD Vaginal bleeding (Primary Dx) Discharge Disposition: Home or Self Care 04/18/2025 Travel 04/10/2025 11:39 PM EST - 04/11/2025 5:09 AM EST Emergency [facility] Emergency Department [facility] [address] [phone] Farzad Stiles MD Ectopic (Primary Dx); Hypokalemia Discharge Disposition: Home or Self Care 04/10/2025 Travel 04/05/2025 10:43 PM EST - 04/06/2025 2:31 AM EST Emergency [facility] Emergency Department [address] [place] [phone] Keke Gar MD Ectopic (Primary Dx) Discharge [...] 05/09/2025 8:09 AM EST Plan of Treatment Health Maintenance Due [...] Liyah Syed us Elsa Morton MD IMG DIAGNOSTIC IMAGING ORDERABL ES Final Result * [...] Morton MD IMG CT ORDERABLES Final Result * CT ABDOMEN/PELVIS [...] as reasonably achievable (ALARA) Zara Ross MD IMG CT ORDERABLES Final R esult * ECG 12 lead (04/29/2025 7:34 PM EST) VENTRICULAR RATE EKG/MIN 78 BPM GE MUSE ATRIAL RATE (MCT) 78 BPM GE MUSE DC Interval 116 ms GE MUSE QRS-INTERVAL (MSEC) 80 ms GE MUSE QT Interval 376 ms GE MUSE QTC Interval 428 ms GE MUSE P [place] 52 degrees GE MUSE R AXIS (MCT) -52 degrees GE MUSE T Wave [place] 43 degrees GE MUSE [place] Diagnosis Normal sinus rhythm Left anterior fascicular block Cannot rule out Anterior infarct , age undetermined Confirmed by Rema RINALDI, ARLETH ([id number]) on 05/01/2025 3:51:47 PM GE MUSE 04/29/2025 7:34 PM EST 05/01/2025 3:51 PM EST Zara Ross MD ECG ORDERABLES Final Res ult GE MUSE * (ABNORMAL) Urinalysis, Reflex Microscopic and Culture If Indicated (04/29/2025 7:34 PM EST) Color, UA Light Yellow 04/29/2025 7:54 PM EST [facility] Clarity, UA Turbid 04/29/2025 7:54 PM EST [facility] Specific [place], UA 1.020 1.002 - 1.030 04/29/2025 7:54 PM EST [facility] pH, UA 7.0 5.0 - 9.0 04/29/2025 7:54 PM EST [facility] Leukocytes, UA Negative Negative 04/29/2025 7:54 PM EST [facility] Nitrite, UA Negative Negative 04/29/2025 7:54 PM EST [facility] Protein, UA Trace(A) Negative 04/29/2025 7:54 PM EST [facility] Glucose, UA Negative Negative 04/29/2025 7:54 PM EST [facility] Ketones, UA Negative Negative 04/29/2025 7:54 PM EST [facility] Bilirubin, UA Negative Negative 04/29/2025 7:54 PM EST [facility] Blood, UA Negative Negative 04/29/2025 7:54 PM [facility] Urobilinogen, UA 0.2 mg/dL Normal 04/29/2025 7:54 PM EST [facility] Specimen Source Urine, Clean Catch 04/29/2025 7:54 PM [facility] Urine URINE SPECIMEN COLLECTION, CLEAN CATCH / Unknown 04/29/2025 7:34 PM EST 04/29/2025 7:40 PM EST us Zara Ross MD URINE ORDERABLES Final Re sult [facility] [address] [place] [address] * (ABNORMAL) Urinalysis Microscopic Only (04/29/2025 7:34 PM EST) WBC, UA Occasional None Seen, Occasional , 0-5 /HPF 04/29/2025 7:55 PM [facility] RBC, UA None Seen None Seen, Rare /HPF 04/29/2025 7:55 PM [facility] Bacteria, UA 2+(A) None Seen 04/29/2025 7:55 PM [facility] Amorphous Crystals 2+(A) None Seen, Trace 04/29/2025 7:55 PM EST [facility] SQUAMOUS EPITHELIAL Occasional(A) None Seen, Rare /HPF 04/29/2025 7:55 PM [facility] Urine URINE SPECIMEN COLLECTION, CLEAN CATCH / Unknown 04/29/2025 7:34 PM EST 04/29/2025 7:40 PM EST us aZra Ross MD URINE ORDERABLES Final Re sult [facility] [address] [place] [address] * (ABNORMAL) CBC with Auto Diff (04/29/2025 7:31 PM EST) Only the most recent of3 resultswithin the time period is included. WBC 9.4 4.8 - 10.8 K/ L 04/29/2025 7:44 PM [facility] RBC 4.73 3.50 - 5.20 M/ L 04/29/2025 7:44 PM [facility] Hemoglobin 13.7 11.7 - 15.8 GM/DL 04/29/2025 7:44 PM [facility] Hematocrit 41.2 35.0 - 47.0 % 04/29/2025 7:44 PM [facility] MCV 87 81 - 101 fL 04/29/2025 7:44 PM [facility] MCH 29.0 27.0 - 34.0 pg 04/29/2025 7:44 PM [facility] MCHC 33.3 32.0 - 36.0 GM/DL 04/29/2025 7:44 PM [facility] RDW 12.9 11.5 - 14.5 % 04/29/2025 7:44 PM [facility] Platelets 501(H) 150 - 400 K/CU MM 04/29/2025 7:44 PM [facility] MPV 9.1(L) 9.4 - 12.4 fL 04/29/2025 7:44 PM [facility] Nucleated Red Blood Cell 0.0 0 - 0.2 % 04/29/2025 7:44 PM [facility] % Neutros 64 37 - 80 % 04/29/2025 7:44 PM [facility] % Lymphs 28 10 - 50 % 04/29/2025 7:44 PM [facility] % Monos 7 5 - 13 % 04/29/2025 7:44 PM [facility] % Eos 0.5 0.0 - 7.0 % 04/29/2025 7:44 PM [facility] % Baso 0 0 - 3 % 04/29/2025 7:44 PM [facility] NRBC Absolute <0.01 0 - 0.012 K/ul 04/29/2025 7:44 PM [facility] # Neutros 6.04 2.00 - 6.90 K/ L 04/29/2025 7:44 PM [facility] # Lymphs 2.60 0.60 - 3.40 K/ L 04/29/2025 7:44 PM [facility] # Monos 0.69 0.00 - 0.90 K/ L 04/29/2025 7:44 PM [facility] # Eos 0.05 0.00 - 0.70 K/ L 04/29/2025 7:44 PM [facility] # Baso 0.04 0.00 - 0.20 K/ L 04/29/2025 7:44 PM [facility] % Imm Grans 0.10 % 04/29/2025 7:44 PM [facility] # IG 0.01(H) 0.00 - 0.00 K/uL 04/29/2025 7:44 PM [facility] Blood Venipuncture / Unknown 04/29/2025 7:31 PM EST 04/29/2025 7:40 PM EST Narrative [facility] - 04/29/2025 7:44 PM [...] MD LAB BLOOD ORDERABLES Lainey l Result [facility] [address] [phone] * (ABNORMAL) High Sensitivity Troponin I (04/29/2025 7:31 PM EST) [facility] Troponin I High Sensitivity (pg/mL) <4(L) 4 - 60.3 pg/mL 04/29/2025 8:08 PM EST [facility] Comment: Troponin Result (pg/mL) [...] ORDERABLES Lainey l Result Performing Organization Address City/[facility]/ZIP Co de Phone Number [facility] [address] [place] [address] * D-dimer (04/29/2025 7:31 PM EST) [facility] D-Dimer, Quant (SJMS SJE) 140.69 <=500.00 ng/mL FEU 04/29/2025 8:13 PM EST [facility] Comment: A normal D-dimer [...] ORDERABLES Lainey l Result Performing Organization Address City/[facility] Co de Phone Number [facility] [address] [place] [address] * hCG, quantitative, (04/29/2025 7:31 PM EST) Only the most recent of3 resultswithin the time period is included. [facility] HCG Serum Quant 1 mIU/mL 8:07 PM EST [facility] Comment: Results [...] MD LAB BLOOD ORDERABLES Lainey l Result [facility] [address] [phone] * Lipase (04/29/2025 7:31 PM EST) Lipase 40 16 - 77 U/L 04/29/2025 8:07 PM EST [facility] Blood Venipuncture / Unknown 04/29/2025 7:31 PM EST 04/29/2025 7:40 PM EST us Zara Ross MD LAB BLOOD ORDERABLES Lainey l Result [facility] [address] [phone] * (ABNORMAL) Comprehensive metabolic panel (04/29/2025 7:31 PM EST) Only the most recent of3 resultswithin the time period is included. Pathologist [facility] Sodium 140 136 - 145 meq/L 04/29/2025 8:07 PM [facility] Potassium 3.6 3.5 - 5.1 meq/L 04/29/2025 8:07 PM [facility] Chloride 102 98 - 107 meq/L 04/29/2025 8:07 PM EST [facility] CO2 29 21 - 32 meq/L 04/29/2025 8:07 PM EST [facility] Calcium 9.6 8.5 - 10.1 mg/dL 04/29/2025 8:07 PM [facility] Glucose 89 74 - 100 mg/dL 04/29/2025 8:07 PM [facility] BUN 12 7 - 18 mg/dL 04/29/2025 8:07 PM [facility] Creatinine 0.54(L) 0.55 - 1.10 mg/dL 04/29/2025 8:07 PM [facility] BUN/Creatinine 22 04/29/2025 8:07 PM [facility] Albumin 4.5 3.4 - 5.0 g/dL 04/29/2025 8:07 PM [facility] Alkaline Phosphatase 97 46 - 116 U/L 04/29/2025 8:07 PM [facility] ALT 12 12 - 78 U/L 04/29/2025 8:07 PM [facility] AST 12(L) 15 - 37 U/L 04/29/2025 8:07 PM [facility] Total Bilirubin 0.3 0.2 - 1.0 mg/dL 04/29/2025 8:07 PM [facility] Protein, Total 8.1 6.4 - 8.2 gm/dL 04/29/2025 8:07 PM [facility] Anion Gap 13 - 04/29/2025 8:07 PM [facility] A/G Ratio 1.3 04/29/2025 8:07 PM [facility] Globulin 3.6 g/dL 04/29/2025 8:07 PM [facility] Osmolality Calc 278.6 mOsm/kg 8:07 PM [facility] eGFR (mL/min/1.73m2) >60 >=60 mL/min/1.7 3m2 04/29/2025 8:07 PM [facility] Comment:ESTIMATED GFR IS NOT ACCURATE CREATININE CLEARANCE IN PREDICTING GLOMERULAR FILTRATION RATE. ESTIMATED GFR IS NOT APPLICABLE FOR DIALYSIS PATIENTS. Blood Venipuncture / Unknown 04/29/2025 7:31 PM EST 04/29/2025 7:40 PM EST us Zara Ross MD LAB BLOOD ORDERABLES Lainey nely Result [facility] [address] [place] [address], [facility] [phone] * US OB transvaginal (04/11/2025 2:29 AM [...] sac. IMPRESSION: Authenticated and Farzad Stiles MD [facility] ORDERABLES Edited Result - Final * (ABNORMAL) Urinalysis w/Microscopic (04/05/2025 11:04 PM EST) Color, UA Yellow 04/05/2025 11:43 PM [facility] Clarity, UA Clear 04/05/2025 11:43 PM [facility] Specific [place], UA 1.025 1.002 - 1.030 04/05/2025 11:43 PM [facility] pH, UA 6.0 5.0 - 9.0 04/05/2025 11:43 PM [facility] Leukocytes, UA Negative Negative 04/05/2025 11:43 PM [facility] Nitrite, UA Negative Negative 04/05/2025 11:43 PM [facility] Protein, UA 1+(A) Negative 04/05/2025 11:43 PM [facility] Glucose, UA Negative Negative 04/05/2025 11:43 PM [facility] Ketones, UA Trace(A) Negative 04/05/2025 11:43 PM EST [facility] Urobilinogen, UA 0.2 mg/dL Normal 04/05/2025 11:43 PM EST [facility] Bilirubin, UA Negative Negative 04/05/2025 11:43 PM EST [facility] Blood, UA 3+(A) Negative 04/05/2025 11:43 PM EST [facility] RBC, UA 5-10(A) None Seen, Rare /HPF 04/05/2025 11:43 PM EST [facility] WBC, UA 0-5 None Seen, Occasional , 0-5 /HPF 04/05/2025 11:43 PM EST [facility] Bacteria, UA 2+(A) None Seen 04/05/2025 11:43 PM EST [facility] Mucus 1+(A) Trace 04/05/2025 11:43 PM EST [facility] SQUAMOUS EPITHELIAL 0-5(A) None Seen, Rare /HPF 04/05/2025 11:43 PM EST [facility] Ca Oxalate [place], UA 2+(A) (none) 04/05/2025 11:43 PM EST [facility] Specimen Source Urine, Clean Catch 04/05/2025 11:43 PM EST [facility] Urine URINE SPECIMEN COLLECTION, CLEAN CATCH / Unknown 04/05/2025 11:04 PM EST 04/05/2025 11:04 PM EST us Keke Gar MD URINE ORDERABLES Final Re sult [facility] [address] [phone] from Last 3 Months Insurance [facility] Care Teams Marine Geologist Relationship Specialty Start Date End Date Sarika Moyer, ISAIAH [address] [place], [place] [id number] PCP - General Nurse Practitioner 04/05/25
--- OUTSIDE RECORDS SUMMARY | 2025-05-21 17:38 | XMS_ITS | Encounter Summary ---
Author Organization [employer] ([place], [place], [place], [place], [place]) Address [address] [place] [address] Care Team Providers Care Soyfreeze Operator Name Role Phone Sarika Moyer RESIDENTIAL AIDE Primary Care Provider + Encounter Details Date Type Department Care Team (Latest Contact Info) Description 05/09/2025 Travel Social History Tobacco Use Types Packs/Day [...] on filedocumented in this encounter Care Teams Soyfreeze Operator Relationship Specialty Start Date End Date Sarika Moyer APRN [address] [place] [address] PCP - General Nurse Practitioner 04/05/25 documented as of this encounter
--- OUTSIDE RECORDS SUMMARY | 2025-05-21 17:38 | XMS_ITS | Encounter Summary ---
Author Organization [email or web address] ([place], [place], [place], [place], [place]) Address [address] [place] [address] Care Team Providers Care Supplier Quality Engineer Name Role Phone Sarika Moyer FOOD SAFETY SPECIALIST Primary Care Provider + Encounter Details [...] on filedocumented in this encounter Care Teams Supplier Quality Engineer Relationship Specialty Start Date End Date Sarika Moyer APRN [address] [place] [address] PCP - General Nurse Practitioner 04/05/25 documented as of this encounter
--- NOTE | 2025-05-21 17:50 | ED_ITS ---
Discharge Plan Disposition Patient Disposition: Home, Self-Care Prescriptions Prescriptions: No Action clomipramine 25 mg capsule 25 mg PO DAILY Qty: 30 2RF Referrals Follow up/Referrals: Sarika Moyer APRN [Primary Care Provider, Medical] - See instructions Activity Restrictions/Add. Instructions Additional Instructions/Restrictions: You do not have any evidence of a blood clot on your ultrasound today. I encourage you to go to [facility] in [place] after leaving here for behavioral health evaluation for your extreme anxiety. If you develop any new or worsening symptoms, or if you become concerned for your help for any reason, return to the emergency department for evaluation Clinical Impressions Clinical Impression: Right calf pain, Anxiety Print Language Print Language: Slovenian Discharge ED Provider: Andrea Lucio Adult HPI General Chief complaint: PAIN Stated complaint: Right leg pain X2 days Time Seen by Provider: 05/21/25 17:36 Mode of Arrival: Ambulatory Source of Information: Patient Description of Symptoms (Recalled from ER Triage Doc. by RN): PT presents with right calf pain for three days. Leg appears normal upon exam, no swelling or redness. Pt states she has worked herself up about it and thinks it is a blood clot History of Present Illness HPI narrative: Ivon Jeter is a 25-year-old female with a history of anxiety, recently resolved ectopic who presents to the emergency department for complaints of right lower extremity pain and is concerned she has a blood clot. She also reports severe anxiety that is debilitating recently. Patient states that over the last 2 weeks, she feels like she cannot function anymore and is crying most of the time and feels like she is going to . She states that she wakes up and fears that she will from organ failure even though she has had repeated lab work that has been reassuring. She states that over the past 2 days, she has had pain in her right calf and fears that she has a blood clot. She denies any significant swelling. She has never had a blood clot before. She denies any suicidal ideation or homicidal ideation but notes that her anxiety has been so severe recently that her wants to divorce her. She states that she had a family member dying 2 weeks before her ectopic , and ever since then she feels like her life has been out of control. She was seen by our behavioral health team here but does not take her hydroxyzine. Patient also states that she recently lost her job. Related Data Previous Rx's ?Medication ?Instructions ?Recorded clomipramine 25 mg capsule 25 mg PO DAILY #30 caps 09/25 Allergies Allergy/AdvReac Type Severity Reaction Status Date / Time escitalopram (From Lexapro) Allergy Severe Anaphylaxis Verified 05/06/25 13:58 dextromethorphan Allergy Hyper Verified 05/06/25 13:58 activity guaifenesin (From Robitussin) Allergy hyper Verified 05/06/25 13:58 activity PFSH PFS Disclaimer: The information contained in this section may have been updated after the patient was seen, as this information can be updated by other users. Medical History No significant medical problems Surgical History History of tonsillectomy and adenoidectomy H/O oral surgery Family History Other No significant family history Social History Smoking Status: Current every day smoker tobacco type: e-cigarettes alcohol intake: never current occupational status: employed Travel in the last 8 weeks?: None household members: spouse Have you lived/traveled outside [place] in past 30 days?: No Contact w/someone who lives/traveled outside [place] past 30 days?: No Exposure to someone with infectious disease in past 14 days?: No Do you have a fever (greater than 100.4 F or 38 C)?: No Have you tested positive for COVID-19?: No Exposed to someone with COVID-19 in past 14 days?: No Do you have a sore throat?: No Do you have a cough?: No Do you have any weakness?: No Do you have any diarrhea?: No Are you experiencing any unusual bleeding?: No Do you have any muscle aches/pain?: No Do you have any abdominal pain?: No Are you experiencing loss of taste or smell?: No Other Medical History Have you received the Pneumonia Vaccine: No ROS Obtained: Yes Systems reviewed as appropriate & no additional complaints except as documented Physical Exam General General appearance: alert, in no apparent distress and anxious Head Head exam: atraumatic Eye Eye exam: Present normal appearance ENT ENT exam: Present normal external ear exam Neck Neck exam: Present full ROM Chest Chest inspection: Present symmetric chest wall rise Respiratory Respiratory exam: Present normal lung sounds bilaterally; Absent respiratory distress Cardiovascular Cardiovascular exam: Present normal rhythm and tachycardia Abdominal Exam Abdominal exam: Present soft; Absent tenderness or guarding Extremities Exam Extremities exam: Present normal inspection Back Exam Back exam: Present normal inspection Neurological Exam Neurological exam: Present alert and oriented X3 Psychiatric Psychiatric exam: Present normal affect Skin Skin exam: Present warm and dry Medical Decision Making Medical Records Screening: Per USPSTF and CDC recommendations, given the prevalence of disease in our region, it is our hospital?s policy to screen for HIV and viral Hepatitis for all patients aged 18 and over and those with ongoing risk factors. Lucho Inquiry Pt receiving controlled substance: No Vital Signs: 05/21/25 17:24 05/21/25 18:40 Temperature 98.9 F 98.6 F Temperature Source Oral Oral Pulse Rate 106 H Pulse Rate [Right] 103 H Respiratory Rate 18 18 Blood Pressure 130/98 H Blood Pressure [Right Arm] 134/99 H Blood Pressure Mean [Right Arm] 110 Blood Pressure Source Automatic Cuff Blood Pressure Source [Right Arm] Automatic Cuff Blood Pressure Position Sitting Blood Pressure Position [Right Arm] Sitting 02 Sat by Pulse Oximetry 99 Oxygen Delivery Method Room Air Room Air Orders (Tests/Meds): ORDERS Category Date Time Status POCUS Point of Care (ER Only) Stat Exams 05/21/25 17:47 Completed Medical Decision Narrative: Ivon Jeter is a 25-year-old female with a history of anxiety, recently resolved ectopic who presents to the emergency department for complaints of right lower extremity pain and is concerned she has a blood clot. She also reports severe anxiety that is debilitating recently. Patient states that over the last 2 weeks, she feels like she cannot function anymore and is crying most of the time and feels like she is going to . She states that she wakes up and fears that she will from organ failure even though she has had repeated lab work that has been reassuring. She states that over the past 2 days, she has had pain in her right calf and fears that she has a blood clot. She denies any significant swelling. She has never had a blood clot before. She denies any suicidal ideation or homicidal ideation but notes that her anxiety has been so severe recently that her wants to divorce her. She states that she had a family member dying 2 weeks before her ectopic , and ever since then she feels like her life has been out of control. She was seen by our behavioral health team here but does not take her hydroxyzine. On arrival, patient is hemodynamically stable, mildly tachycardic with a heart rate of 103. Physical exam, stated above, reveals very anxious appearing female in no respiratory distress. She has no swelling or tenderness to the right lower extremity compared to the left. 2+ DP and PT pulses bilaterally. Temperature is normal to both lower extremities and she appears well-perfused. I have low concern for DVT given lack of risk factors and reassuring physical exam. However, we will obtain [id number] right lower extremity ultrasound to rule out DVT. Patient had hematologic labs obtained 2 days ago by her primary care doctor and she only had very mildly elevated platelets but CBC, thyroid studies, electrolytes, kidney function were all otherwise within normal limits. I do not feel that there is any indication for laboratory studies at this time given her recent workup and multiple emergency department visits without acute findings. Will obtain [id number] bedside ultrasound to rule out DVT. This was performed by me personally and there is no evidence of a DVT in the right lower extremity. I do feel that patient symptomatology is largely driven by anxiety. She states that she was followed by [facility] here but does not have an appointment for another 2 weeks. She has had multiple life stressors recently, including job loss and her wanting a divorce. She does not have any suicidal or homicidal ideation. She is very tearful throughout our conversation. I do feel that she would benefit from evaluation by psychiatry but does not need to be on an involuntary hold. Recommended that she go to [facility] for evaluation by [facility] for her severe anxiety and she is in agreement with this plan. I do feel that she is appropriate for discharge at this time. She states that she will go to [facility]. Return precautions were given. All questions were answered. She demonstrated understanding and was in agreement this plan. She was then discharged from the emergency department in stable condition. Procedures Limited Ultrasound Indication:: Indication: Limited compression ultrasonography of the right lower extremity was performed by me, Andrea Lucio MD, to evaluate for non-compressibility of the deep veins in the patient. The ultrasound was performed with the following indications, as noted in the H&P: Right calf pain Identified structures: RIGHT common femoral vein, femoral vein, popliteal vein were examined. Ulnar vein, radial vein, cephalic vein, basilic vein, axillary vein. Findings: Lower Extremity: Right CFV: Good compressibility Right FV: Good compressibility Right Popliteal vein: Good compressibility Impression: Normal DVT ultrasound Images were saved to permanent archive The study was technically adequate CPT: [id number]-SY This study was performed by me, and I personally interpreted all images/videos. Based on my clinical judgement, these images were adequate and did not necessitate further imaging. Critical Care Critical Care Time Critical Care Time: No
[2025-05-21 18:40] VITALS: BP 130/98; PULSE 106; RESP 18; TEMP 37; O2SAT 97
== END 2025-05-21 18:42 | disposition home or self-care (01) ==
PROVIDERS: Emergency Provider Student in an Organized Health Care Education/Training Program; PCP Nurse Practitioner Family
DX: M79.661 Pain in right lower leg (principal); F41.1 Generalized anxiety disorder; R00.0 Tachycardia, unspecified
CPT/HCPCS: 99282

== ENCOUNTER 2025-05-24 12:36 | Emergency (ER) | payer OTHER, SELFPAY ==
--- OUTSIDE RECORDS SUMMARY | 2025-03-27 19:35 | XMS_ITS | Encounter Summary ---
Author Organization Healthcare Address [address] [place] [address] Care Team Providers Care Housing Installer Name Role Phone Sarika Moyer ISAIAH Primary Care Provider + Reason for Visit * Reason Comments Pelvic Pain Encounter Details Date Type Department Care Team (Late st Contact Info) Description 03/27/2025 8:35 PM EDT - 03/28/2025 1:22 AM EDT Emergency [facility] Emergency Department [address] [place] [address] Rose Cortes MD [address] [place] [address] of unknown anatomic location (Primary Dx) Discharge [...] as able. Please increase your water intake. [place] use of warm and/or cold compresses. Primary [...] here is available to you via the [employer] Internet portal. Please make sure that you [...] 24 y.o. with PUL being followed at [facility] who presents for RLQ pain. Patient reports that this is her first . She was having her beta hCG trended for pregnancyof unknown location, with the trend showing an inappropriate rise. Per [facility] records reviewed by ED MICHAEL, on 03/25/25 beta hCG was 568, down from 701. At this time patient received a dose of IM methotrexate. Yesterday morning/afternoon, patient reports that she had increased right lower quadrant/pelvic pain with associated nausea. At [facility] yesterday, beta hCG was found [...] - Patient with PUL being followed at [facility] - Beta hCG trend shown to be inappropriately rising > 03/17: 258 > 03/19: 276 > 03/20: 370 > 03/21: 342 > 03/24: 701 > 03/25: 568 -- Dose of methotrexate 03/25 -- > 03/27: 543 - Pt with increased RLQ pain 03/27 prompting her to present first to [facility] where beta was noted to have decreased slightly from 03/25. TVUS not directly reviewed, however records indicatea 1.5 cm unknown structure was seen in the R adnexa. - Patient was discharged home from [facility], but due to persistent pain [...] with patient that her beta hCG at [facility] today was encouraging. Explained that [...] Dispo: stable for discharge home from a DELIVERY DIRECTOR standpoint. Thank you for including us in the care of this patient. This consult was staffed with Dr. Bowers. Please message on-call DELIVERY DIRECTOR resident via [employer] Secure Chat or page [phone] (M-F 6a-6p) or [phone] (nights/weekends) for questions or concerns regarding this patient's care. Ivon Marmolejo MD PGY3 Obstetrics and Gynecology [1] Past Medical History: Diagnosis Date Other specified health status No pertinent past medical history [2] Past Surgical History: Procedure Laterality Date DENTAL SURGERY N/A Dental surgery from [facility] TONSILLECTOMY N/A Tonsillectomy from [facility] [3] Family History Problem Relation Name Age [...] SOA, and urinary symptoms. Medical records from [facility] reviewed: 03/26/2025 -- HCG trends recorded (03/17 -- 258, 03/19--276. 03/20--370. 03/21--342. 03/24--701. 03/25--568.), documented a 1gm Methotrexate given IM on 03/25/2025. 03/27/2025 -- TVUS with1.5cm unknown structure in the right adenxa, 03/27 -- HCG 543. History provided by: Patient development spec used: No Patient History Past Medical History[1] [...] does not include homicidal or suicidal ideation. [place] Coma Scale Score: 15 ED Course & [...] Abnormality Status --------- ------ ED HIV 1/2 Antibody/Anti...[[id number]] Normal Final result Please view results for [...] 11:57 PM MDM: Patient seen by the [facility] physician and followed-up by myself. In summary: NARRATIVE: Patient is a 24-year-old female who presents with complaints of diffuse right-sided abdominal discomfort. Has been seen multiple times at [facility] and had HCGs done. Has not had an appropriate doubling. Was given a dose of IM methotrexate a couple of days ago. Had an ult rasound done earlier today which did still document a 1.5 cm mass in the right adnexa and hCG in the mid 500s. Patient otherwise had a reassuring exam and H&H and was discharged for outpatient logistics team lead follow-up. Was offered some hydroxyzine at that time, but deferred. Patient presented to our ER for 2nd opinion of her own accord. H&H stable. HCG still in the 600range. Transvaginal ultrasound does not note a right adnexal mass at this time. Given unclear hCG trend and patient concern, logistics team lead was consulted. Patient signed out pending final logistics team lead recommendations. Clinical Impressions as of 03/28/2533 of [...] mg Oral Given Ivana Loredo PA-C EMR Dragon/Implementation Technician disclaimer: Much of this encounter note is an electronic cell room operator of spoken language to printed text. Electronic cell room operator of spoken language may permit erroneous, [...] as able. Please increase your water intake. [place] use of warm and/or cold compresses. Primary [...] here is available to you via the [employer] Internet portal. Please make sure that you are registered for access to this. Disposition Discharge AVS (Estonian Snapshot) - Printed 03/28/2025 Follow-Ups Go to Sarika Moyer APRN; As needed Follow up with [facility] (Obstetrics and Gynecology) [...] Reactive Non Reactive 03/27/2025 9:26 PM EDT [facility] Comment:Screening for HIV 1 & 2 antibodies, and P24 antigen is NONREACTIVE. No confirmatory testing is required. Blood Venous blood specimen / Unknown Venipuncture / Unknown 03/27/2025 8:31 PM EDT 03/27/2025 8:44 PM EDT Result [facility] us Rose Cortes MD LAB BLOOD ORDERABLES Final Resu lt [facility] [address] [place] [address] * Hepatitis C Antibody - ED (03/27/2025 8:31 PM EDT) Hepatitis C Antibody Negative Negative 03/27/2025 9:26 PM EDT [facility] Blood Venous blood specimen / Unknown Venipuncture / Unknown 03/27/2025 8:31 PM EDT 03/27/2025 8:44 PM EDT Result [facility] us Rose Cortes MD LAB BLOOD ORDERABLES Final Resu lt [facility] [address] [place] [address] * Type and screen (03/27/2025 8:31 PM [...] TEST ORDERABLES Final Result Performing Organization Address [facility] de Phone Number BLOOD BANK [address] [place] [address], [place] * (ABNORMAL) hCG, quantitative, (03/27/2025 8:31 PM EDT) hCG, Total Beta 626.2(H) <5 mIU/mL 03/27/2025 9:22 PM EDT [facility] Blood Venous blood specimen / Unknown Venipuncture / Unknown 03/27/2025 8:31 PM EDT 03/27/2025 8:41 PM EDT Narrative [facility] - 03/27/2025 9:22 PM [...] ORDERABLES Final Resu lt Performing Organization Address City/[facility]/ZIP Co de Phone Number [facility] [address] [place] [address] * (ABNORMAL) CBC w/diff (03/27/2025 8:31 PM EDT) WBC Count 11.76(H) 3.70 - 10.30 10*3/uL LAB HEMATOLOGY METHOD 03/27/2025 8:44 PM EDT [facility] RBC Count 4.82 3.90 - 5.20 10*6/uL LAB HEMATOLOGY METHOD 03/27/2025 8:44 PM EDT [facility] HGB 14.2 11.2 - 15.7 g/dL LAB HEMATOLOGY METHOD 03/27/2025 8:44 PM EDT [facility] HCT 39.9 34.0 - 45.0 % LAB HEMATOLOGY METHOD 03/27/2025 8:44 PM EDT [facility] Platelet Count 523(H) 155 - 369 10*3/uL LAB HEMATOLOGY METHOD 03/27/2025 8:44 PM EDT [facility] MCV 83 79 - 98 fL LAB HEMATOLOGY METHOD 03/27/2025 8:44 PM EDT [facility] MCH 29.5 26.0 - 32.0 pg LAB HEMATOLOGY METHOD 03/27/2025 8:44 PM EDT [facility] MCHC 35.6(H) 30.7 - 35.5 g/dL LAB HEMATOLOGY METHOD 03/27/2025 8:44 PM EDT [facility] RDW 12.2 11.5 - 14.5 % LAB HEMATOLOGY METHOD 03/27/2025 8:44 PM EDT [facility] MPV 9.3 8.8 - 12.5 fL LAB HEMATOLOGY METHOD 03/27/2025 8:44 PM EDT [facility] nRBC 0.0 <=0.0 per 100 WBCs LAB HEMATOLOGY METHOD 03/27/2025 8:44 PM EDT [facility] Differential Type Automated LAB HEMATOLOGY METHOD 03/27/2025 8:44 PM EDT [facility] Neutrophils % 71 % LAB HEMATOLOGY METHOD 03/27/2025 8:44 PM EDT [facility] Lymphocytes % 25 % LAB HEMATOLOGY METHOD 03/27/2025 8:44 PM EDT [facility] Monocytes % 4 % LAB HEMATOLOGY METHOD 03/27/2025 8:44 PM EDT [facility] Eosinophils % 0 % LAB HEMATOLOGY METHOD 03/27/2025 8:44 PM EDT [facility] Basophils % 0 % LAB HEMATOLOGY METHOD 03/27/2025 8:44 PM EDT [facility] Immature Granulocytes % 0 % LAB HEMATOLOGY METHOD 03/27/2025 8:44 PM EDT [facility] Neutrophils Absolute 8.17(H) 1.60 - 6.10 10*3/uL LAB HEMATOLOGY METHOD 03/27/2025 8:44 PM EDT [facility] Lymphocytes Absolute 2.96 1.20 - 3.90 10*3/uL LAB HEMATOLOGY METHOD 03/27/2025 8:44 PM EDT [facility] Monocytes Absolute 0.52 0.30 - 0.90 10*3/uL LAB HEMATOLOGY METHOD 03/27/2025 8:44 PM EDT [facility] Eosinophils Absolute 0.03 0.00 - 0.50 10*3/uL LAB HEMATOLOGY METHOD 03/27/2025 8:44 PM EDT [facility] Basophils Absolute 0.05 0.00 - 0.10 10*3/uL LAB HEMATOLOGY METHOD 03/27/2025 8:44 PM EDT [facility] Immature Granulocytes Absolute 0.03 0.00 - 0.06 10*3/uL LAB HEMATOLOGY METHOD 03/27/2025 8:44 PM EDT [facility] Blood Venous blood specimen / Unknown Venipuncture / Unknown 03/27/2025 8:31 PM EDT 03/27/2025 8:41 PM EDT Narrative [facility] - 03/27/2025 8:44 PM EDT Therapeutic decision making should be based on absolute values, rather than percentages. us Rose Cortes MD LAB BLOOD ORDERABLES Final Resu lt [facility] [address] [place] [address] * (ABNORMAL) CMP (03/27/2025 8:31 PM EDT) Glucose, Plasma 96 74 - 99 mg/dL 03/27/2025 9:22 PM EDT [facility] BUN, Plasma 11 7 - 21 mg/dL 03/27/2025 9:22 PM EDT [facility] Creatinine, Plasma 0.48(L) 0.60 - 1.10 mg/dL 03/27/2025 9:22 PM EDT [facility] BUN/Creatinine Ratio 23 03/27/2025 9:22 PM EDT [facility] Sodium, Plasma 136 136 - 145 mmol/L 03/27/2025 9:22 PM EDT [facility] Potassium, Plasma 3.1(L) 3.6 - 4.9 mmol/L 03/27/2025 9:22 PM EDT [facility] Chloride, Plasma 100 97 - 107 mmol/L 03/27/2025 9:22 PM EDT [facility] CO2, Plasma 20(L) 22 - 29 mmol/L 03/27/2025 9:22 PM EDT [facility] Anion Gap 16 6 - 16 mmol/L 03/27/2025 9:22 PM EDT [facility] Total Calcium, Plasma 9.8 8.9 - 10.2 mg/dL 03/27/2025 9:22 PM EDT [facility] Total Protein 7.7 6.3 - 7.9 g/dL 03/27/2025 9:22 PM EDT [facility] Albumin, Plasma 4.9 3.5 - 5.2 g/dL 03/27/2025 9:22 PM EDT [facility] AST, Plasma 17 10 - 35 U/L 03/27/2025 9:22 PM EDT [facility] ALT, Plasma 8(L) 10 - 35 U/L 03/27/2025 9:22 PM EDT [facility] Alkaline Phosphatase, Plasma 102 35 - 104 U/L 03/27/2025 9:22 PM EDT [facility] Total Bilirubin, Plasma 1.3(H) 0.2 - 1.1 mg/dL 03/27/2025 9:22 PM EDT [facility] eGFRcr 137.5 mL/min/1.7 3m*2 03/27/2025 9:22 PM EDT [facility] Comment:Reported eGFRcr in m L/min/1.73m2 is based the CKD-EPI 2020 equation that does not use a race coefficient. Blood Venous blood specimen / Unknown Venipuncture / Unknown 03/27/2025 8:31 PM EDT 03/27/2025 8:41 PM EDT us Rose Cortes MD LAB BLOOD ORDERABLES Final Resu lt [facility] [address] [place] [address] documented in this encounter Visit Diagnoses Diagnosis [...] Foss) documented in this encounter Care Teams Housing Installer Relationship Specialty Start Date End Date Sarika Moyer APRN [address] [place] [address] PCP - General 10/14/20 documented as of this encounter
--- OUTSIDE RECORDS SUMMARY | 2025-04-05 22:43 | XMS_ITS | Encounter Summary ---
Author Organization for; to ([employer]) ([place], [place], [place], [place], [place]) Address [address] [place] [address] Care Team Providers Care Director Commercial Sales Name Role Phone Sarika Moyer APRN Primary [...] EST - 04/06/2025 2:31 AM EST Emergency [facility] Emergency Department [address] [place] [phone] Keke Gar MD [address] [place] [address] Ectopic (Primary Dx) Discharge Disposition: Home or [...] be sent through Care Everywhere. * Ectopic Ttzm-[id number]-[id number] (Icelandic) documented in this encounter ED Notes * [...] are negative. Physical Exam ED Triage Vitals [04/05/254] Encounter Vitals Group BP (!) 128/90 Girls [...] Color, UA Yellow Clarity, UA Clear Specific [place], UA 1.025 1.002 - 1.030 pH, UA [...] doctor Call today Next Steps: Follow up RMATICS PHYSICIAN LIAISON documented in this encounter Plan of Treatment [...] recommended. IMPRESSION: Authenticated and Keke Gar MD [facility] US ORDERABLES Edited Result - Final * (ABNORMAL) Comprehensive metabolic panel (04/05/2025 11:30 PM EST) Sodium 140 136 - 145 meq/L 04/06/2025 12:03 AM [facility] Potassium 3.3(L) 3.5 - 5.1 meq/L 04/06/2025 12:03 AM [facility] Chloride 102 98 - 107 meq/L 04/06/2025 12:03 AM [facility] CO2 25 21 - 32 meq/L 04/06/2025 12:03 AM [facility] Calcium 9.5 8.5 - 10.1 mg/dL 04/06/2025 12:03 AM [facility] Glucose 106(H) 74 - 100 mg/dL 04/06/2025 12:03 AM [facility] BUN 12 7 - 18 mg/dL 04/06/2025 12:03 AM [facility] Creatinine 0.60 0.55 - 1.10 mg/dL 04/06/2025 12:03 AM [facility] BUN/Creatinine 20 04/06/2025 12:03 AM [facility] Albumin 4.5 3.4 - 5.0 g/dL 04/06/2025 12:03 AM [facility] Alkaline Phosphatase 91 46 - 116 U/L 04/06/2025 12:03 AM [facility] ALT 10(L) 12 - 78 U/L 04/06/2025 12:03 AM [facility] AST 14(L) 15 - 37 U/L 04/06/2025 12:03 AM [facility] Total Bilirubin 0.3 0.2 - 1.0 mg/dL 04/06/2025 12:03 AM [facility] Protein, Total 8.0 6.4 - 8.2 gm/dL 04/06/2025 12:03 AM [facility] Anion Gap 16 11 - 22 04/06/2025 12:03 AM [facility] A/G Ratio 1.3 04/06/2025 12:03 AM [facility] Globulin 3.5 g/dL 04/06/2025 12:03 AM [facility] Osmolality Calc 279.6 mOsm/kg 12:03 AM [facility] eGFR (mL/min/1.73m2) >60 >=60 mL/min/1.7 3m2 04/06/2025 12:03 AM [facility] Comment:ESTIMATED GFR IS NOT ACCURATE CREATININE CLEARANCE IN PREDICTING GLOMERULAR FILTRATION RATE. ESTIMATED GFR IS NOT APPLICABLE FOR DIALYSIS PATIENTS. Blood Venipuncture / Unknown 04/05/2025 11:30 PM EST 04/05/2025 11:41 PM EST us Keke Gar MD LAB BLOOD ORDERABLES Lainey mckay Result [facility] [address] [id number] [phone] * (ABNORMAL) CBC with Auto Diff (04/05/2025 11:30 PM EST) WBC 9.8 4.8 - 10.8 K/ L 04/05/2025 11:45 PM [facility] RBC 4.72 3.50 - 5.20 M/ L 04/05/2025 11:45 PM [facility] Hemoglobin 13.8 11.7 - 15.8 GM/DL 04/05/2025 11:45 PM [facility] Hematocrit 40.9 35.0 - 47.0 % 04/05/2025 11:45 PM [facility] MCV 87 81 - 101 fL 04/05/2025 11:45 PM [facility] MCH 29.2 27.0 - 34.0 pg 04/05/2025 11:45 PM [facility] MCHC 33.7 32.0 - 36.0 GM/DL 04/05/2025 11:45 PM [facility] RDW 13.1 11.5 - 14.5 % 04/05/2025 11:45 PM [facility] Platelets 511(H) 150 - 400 K/CU MM 04/05/2025 11:45 PM [facility] MPV 9.2(L) 9.4 - 12.4 fL 04/05/2025 11:45 PM [facility] Nucleated Red Blood Cell 0.0 0 - 0.2 % 04/05/2025 11:45 PM [facility] % Neutros 65 37 - 80 % 04/05/2025 11:45 PM [facility] % Lymphs 27 10 - 50 % 04/05/2025 11:45 PM [facility] % Monos 6 5 - 13 % 04/05/2025 11:45 PM [facility] % Eos 0.8 0.0 - 7.0 % 04/05/2025 11:45 PM [facility] % Baso 1 0 - 3 % 04/05/2025 11:45 PM [facility] NRBC Absolute <0.01 0 - 0.012 K/ul 04/05/2025 11:45 PM [facility] # Neutros 6.35 2.00 - 6.90 K/ L 04/05/2025 11:45 PM EST [facility] # Lymphs 2.68 0.60 - 3.40 K/ L 04/05/2025 11:45 PM EST [facility] # Monos 0.62 0.00 - 0.90 K/ L 04/05/2025 11:45 PM EST [facility] # Eos 0.08 0.00 - 0.70 K/ L 04/05/2025 11:45 PM EST [facility] # Baso 0.05 0.00 - 0.20 K/ L 04/05/2025 11:45 PM EST [facility] % Imm Grans 0.20 % 04/05/2025 11:45 PM EST [facility] # IG 0.02(H) 0.00 - 0.00 K/uL 04/05/2025 11:45 PM EST [facility] Blood Venipuncture / Unknown 04/05/2025 11:30 PM EST 04/05/2025 11:41 PM EST Narrative [facility] - 04/05/2025 11:45 PM [...] MD LAB BLOOD ORDERABLES Lainey l Result [facility] [address] [place], [place] [id number], [facility] [phone] * (ABNORMAL) Urinalysis w/Microscopic (04/05/2025 11:04 PM EST) Color, UA Yellow 04/05/2025 11:43 PM EST [facility] Clarity, UA Clear 04/05/2025 11:43 PM [facility] Specific [place], UA 1.025 1.002 - 1.030 04/05/2025 11:43 PM [facility] pH, UA 6.0 5.0 - 9.0 04/05/2025 11:43 PM [facility] Leukocytes, UA Negative Negative 04/05/2025 11:43 PM [facility] Nitrite, UA Negative Negative 04/05/2025 11:43 PM [facility] Protein, UA 1+(A) Negative 04/05/2025 11:43 PM [facility] Glucose, UA Negative Negative 04/05/2025 11:43 PM [facility] Ketones, UA Trace(A) Negative 04/05/2025 11:43 PM [facility] Urobilinogen, UA 0.2 mg/dL Normal 04/05/2025 11:43 PM [facility] Bilirubin, UA Negative Negative 04/05/2025 11:43 PM [facility] Blood, UA 3+(A) Negative 04/05/2025 11:43 PM [facility] RBC, UA 5-10(A) None Seen, Rare /HPF 04/05/2025 11:43 PM [facility] WBC, UA 0-5 None Seen, Occasional , 0-5 /HPF 04/05/2025 11:43 PM [facility] Bacteria, UA 2+(A) None Seen 04/05/2025 11:43 PM [facility] Mucus 1+(A) Trace 04/05/2025 11:43 PM [facility] SQUAMOUS EPITHELIAL 0-5(A) None Seen, Rare /HPF 04/05/2025 11:43 PM [facility] Ca Oxalate [place], UA 2+(A) (none) 04/05/2025 11:43 PM [facility] Specimen Source Urine, Clean Catch 04/05/2025 11:43 PM [facility] Urine URINE SPECIMEN COLLECTION, CLEAN CATCH / Unknown 04/05/2025 11:04 PM EST 04/05/2025 11:04 PM EST us Keke Gar MD URINE ORDERABLES Final Re sult [facility] [address] [id number], [facility] [phone] documented in this encounter Visit Diagnoses Diagnosis Ectopic - Primary Unspecified ectopic without intrauterine documented in this encounter Care Teams Director Commercial Sales Relationship Specialty Start Date End Date Sarika Moyer, ASSISTANT FRONT OFFICE MANAGER [address] [place] [address] PCP - General Nurse Practitioner 04/05/25 documented as of this encounter
--- OUTSIDE RECORDS SUMMARY | 2025-04-10 23:39 | XMS_ITS | Encounter Summary ---
Author Organization [employer] ([place], [place], [place], [place], [place]) Address [address] [place] [address] Care Team Providers Care Field Service Rep Name Role Phone Sarika Moyer CONSULTING SERVICES MANAGER Primary Care Provider + Reason for [...] EST - 04/11/2025 5:09 AM EST Emergency [facility] Emergency Department [address] [place] [phone] Farzad Stiles MD [address] [place] [address] Ectopic (Primary Dx); Hypokalemia Discharge Disposition: Home [...] Follow-up with your primary care doctor or pathology manager, call for appointment. Return to the emergency department for any new or worsening symptoms. F LABOURER * Attachments The following attachments cannot be sent through Care Everywhere. * Hypokalemia (Mozambican) * Ectopic [id number] (Mozambican) documented in this encounter ED Notes * [...] 2. Hypokalemia Farzad Stiles MD 04/11/25 0508 F LABOURER documented in this encounter Plan of Treatment [...] sac. IMPRESSION: Authenticated and Farzad Stiles MD [facility] ORDERABLES Edited Result - Final * hCG, quantitative, (04/11/2025 1:20 AM EST) HCG Serum Quant 133 mIU/mL 1:58 AM EST [facility] Comment: Results of the HCG quant [...] MD LAB BLOOD ORDERABLES Final Resu lt [facility] [address] [place] [address] * (ABNORMAL) Comprehensive metabolic panel (04/11/2025 1:20 AM EST) Sodium 142 136 - 145 meq/L 04/11/2025 1:58 AM EST [facility] Potassium 3.1(L) 3.5 - 5.1 meq/L 04/11/2025 1:58 AM EST [facility] Chloride 105 98 - 107 meq/L 04/11/2025 1:58 AM EST [facility] CO2 28 21 - 32 meq/L 04/11/2025 1:58 AM EST [facility] Calcium 9.0 8.5 - 10.1 mg/dL 04/11/2025 1:58 AM EST [facility] Glucose 105(H) 74 - 100 mg/dL 04/11/2025 1:58 AM EST [facility] BUN 11 7 - 18 mg/dL 04/11/2025 1:58 AM EST [facility] Creatinine 0.61 0.55 - 1.10 mg/dL 04/11/2025 1:58 AM [facility] BUN/Creatinine 18 04/11/2025 1:58 AM [facility] Albumin 3.9 3.4 - 5.0 g/dL 04/11/2025 1:58 AM [facility] Alkaline Phosphatase 78 46 - 116 U/L 04/11/2025 1:58 AM [facility] ALT 12 12 - 78 U/L 04/11/2025 1:58 AM [facility] AST 11(L) 15 - 37 U/L 04/11/2025 1:58 AM [facility] Total Bilirubin 0.4 0.2 - 1.0 mg/dL 04/11/2025 1:58 AM [facility] Protein, Total 7.1 6.4 - 8.2 gm/dL 04/11/2025 1:58 AM [facility] Anion Gap 12 11 - 22 04/11/2025 1:58 AM [facility] A/G Ratio 1.2 04/11/2025 1:58 AM [facility] Globulin 3.2 g/dL 04/11/2025 1:58 AM [facility] Osmolality Calc 282.9 mOsm/kg 1:58 AM [facility] eGFR (mL/min/1.73m2) >60 >=60 mL/min/1.7 3m2 04/11/2025 1:58 AM [facility] Comment:ESTIMATED GFR IS NOT ACCURATE CREATININE CLEARANCE IN PREDICTING GLOMERULAR FILTRATION RATE. ESTIMATED GFR IS NOT APPLICABLE FOR DIALYSIS PATIENTS. Blood Venipuncture / Unknown 04/11/2025 1:20 AM EST 04/11/2025 1:23 AM EST us Farzad Stiles MD LAB BLOOD ORDERABLES Final Resu lt [facility] [address] [place] [address], [facility] [phone] * (ABNORMAL) CBC with Auto Diff (04/11/2025 1:20 AM [facility]) WBC 7.3 4.8 - 10.8 K/ L 04/11/2025 1:27 AM [facility] RBC 4.32 3.50 - 5.20 M/ L 04/11/2025 1:27 AM [facility] Hemoglobin 12.7 11.7 - 15.8 GM/DL 04/11/2025 1:27 AM [facility] Hematocrit 37.8 35.0 - 47.0 % 04/11/2025 1:27 AM [facility] MCV 88 81 - 101 fL 04/11/2025 1:27 AM [facility] MCH 29.4 27.0 - 34.0 pg 04/11/2025 1:27 AM [facility] MCHC 33.6 32.0 - 36.0 GM/DL 04/11/2025 1:27 AM [facility] RDW 13.2 11.5 - 14.5 % 04/11/2025 1:27 AM [facility] Platelets 432(H) 150 - 400 K/CU MM 04/11/2025 1:27 AM [facility] MPV 9.1(L) 9.4 - 12.4 fL 04/11/2025 1:27 AM [facility] Nucleated Red Blood Cell 0.0 0 - 0.2 % 04/11/2025 1:27 AM [facility] % Neutros 55 37 - 80 % 04/11/2025 1:27 AM [facility] % Lymphs 34 10 - 50 % 04/11/2025 1:27 AM [facility] % Monos 9 5 - 13 % 04/11/2025 1:27 AM [facility] % Eos 1.5 0.0 - 7.0 % 04/11/2025 1:27 AM [facility] % Baso 1 0 - 3 % 04/11/2025 1:27 AM [facility] NRBC Absolute <0.01 0 - 0.012 K/ul 04/11/2025 1:27 AM EST [facility] # Neutros 4.04 2.00 - 6.90 K/ L 04/11/2025 1:27 AM EST [facility] # Lymphs 2.51 0.60 - 3.40 K/ L 04/11/2025 1:27 AM EST [facility] # Monos 0.62 0.00 - 0.90 K/ L 04/11/2025 1:27 AM EST [facility] # Eos 0.11 0.00 - 0.70 K/ L 04/11/2025 1:27 AM EST [facility] # Baso 0.04 0.00 - 0.20 K/ L 04/11/2025 1:27 AM EST [facility] % Imm Grans 0.10 % 04/11/2025 1:27 AM EST [facility] # IG 0.01(H) 0.00 - 0.00 K/uL 04/11/2025 1:27 AM EST [facility] Blood Venipuncture / Unknown 04/11/2025 1:20 AM EST 04/11/2025 1:23 AM EST Narrative [facility] - 04/11/2025 1:27 AM EST When [...] MD LAB BLOOD ORDERABLES Final Resu lt [facility] [address] [place], [place] [address] [phone] documented in this encounter Visit Diagnoses Diagnosis [...] access) documented in this encounter Care Teams Field Service Rep Relationship Specialty Start Date End Date Sarika Moyer, CONSULTING SERVICES MANAGER [address] [place] [address] PCP - General Nurse Practitioner 04/05/25 documented as of this encounter
--- OUTSIDE RECORDS SUMMARY | 2025-04-18 19:23 | XMS_ITS | Encounter Summary ---
Author Organization [employer] ([place], [place], [place], [place], [place]) Address [address] [place] [address] Care Team Providers Care Retail Sales Consultant Name Role Phone Sarika Moyer PIPE AND TANK FABRICATOR Primary Care Provider + Reason for Visit * Reason Comments Vaginal Bleeding Pt was diagnosed wit h an ectopic on March 25. States she is passing clots today. HCG was 11 yesterday. Encounter Details Date Type Department Care Team (Late st Contact Info) Description 04/18/2025 7:23 PM EST - 04/18/2025 9:25 PM EST Emergency [facility] Emergency Department [address] [place] [phone] Toy Egan MD [address] [place] [address] Vaginal bleeding (Primary Dx) Discharge Disposition: Home [...] through Care Everywhere. * Abnormal Uterine Bleeding [id number] (Q[place]) documented in this encounter ED Notes * [...] Relationship: PCP - General [address] [facility] [address] Next Steps: Schedule an appointment as soon as possible for a visit in 2 day(s) Electronically Signed By Toy Egan MD 04/18/252118 BUILDER HELPER documented in this encounter Plan of Treatment Not on file documented as of this encounter Procedures Procedure Name Priority Date/Time Associated Diagnosis Comments HCG, QUANTITATIVE, STAT 04/18/2025 8:19 PM EST documented in this encounter Results * hCG, quantitative, (04/18/2025 8:19 PM EST) Pathologist [facility] HCG Serum Quant 6 mIU/mL 9:06 PM EST [facility] Comment: Results of the HCG [...] MD LAB BLOOD ORDERABLES Final Resu lt [facility] [address] [place] [address], [facility] [phone] documented in this encounter Visit Diagnoses Diagnosis Vaginal bleeding- Primary Other specified noninflammatory disorder of vagina documented in this encounter Care Teams Retail Sales Consultant Relationship Specialty Start Date End Date Sarika Moyer, PIPE AND TANK FABRICATOR [address] [place] [address] PCP - General Nurse Practitioner 04/05/25 documented as of this encounter
--- OUTSIDE RECORDS SUMMARY | 2025-04-29 18:54 | XMS_ITS | Encounter Summary ---
Author Organization [employer] ([place], [place], [place], [place], [place]) Address [address] [place] [address] Care Team Providers Care Frog Or Oyster Farmworker Name Role Phone Sarika Moyer PRODUCTION MAINTENANCE TECHNICIAN Primary Care Provider + Reason for Visit * Reason Comments Abdominal Pain Pt c/o abdominal zion n. Pt had a ectopic . Encounter Details Date Type Department Care Team (Late st Contact Info) Description 04/29/2025 6:54 PM EST - 04/29/2025 10:26 PM EST Emergency [facility] Emergency Department [address] [place] [phone] Zara Ross MD [address] [place] [address] Periumbilical abdominal pain (Primary Dx) Discharge Disposition: [...] your primary care doctor and with your SOLE CONDITIONER. Please return to the emergency department if you have absolutely any concerns at any time. FRENCH documented in this encounter ED Notes * [...] reports that she has followed up with SOLE CONDITIONER and she reports that her hCG trended [...] UA Light Yellow Clarity, UA Turbid Specific [place], UA 1.020 1.002 - 1.030 pH, UA [...] 78 BPM ATRIAL RATE (MCT) [address] Interval 116 ms QRS-INTERVAL (MSEC) 80 ms QT Interval 376 ms QTC Interval 428 ms P [place] 52 degrees R AXIS (MCT) -52 degrees T Wave [place] 43 degrees [place] Diagnosis Normal sinus rhythm Left anterior fascicular [...] sinus rhythm with a rate of 78, CT 116, QRS 80, QTc 428, I do [...] Specialty: Nurse Practitioner Relationship: PCP - General [address] [place] [address] Next Steps: Follow up Electronically Signed By Zara Ross MD 05/03/25 1658 FRENCH documented in this encounter Plan of Treatment [...] ATRIAL RATE (MCT) [address] Interval 116 ms GE MUSE QRS-INTERVAL (MSEC) 80 ms GE MUSE QT Interval 376 ms GE MUSE QTC Interval 428 ms GE MUSE P [place] 52 degrees GE MUSE R AXIS (MCT) -52 degrees GE MUSE T Wave [place] 43 degrees GE MUSE [place] Diagnosis Normal sinus rhythm Left anterior fascicular [...] , 0-5 /HPF 04/29/2025 7:55 PM EST [facility] RBC, UA None Seen None Seen, Rare /HPF 04/29/2025 7:55 PM EST [facility] Bacteria, UA 2+(A) None Seen 04/29/2025 7:55 PM EST [facility] Amorphous Crystals 2+(A) None Seen, Trace 04/29/2025 7:55 PM EST [facility] SQUAMOUS EPITHELIAL Occasional(A) None Seen, Rare /HPF 04/29/2025 7:55 PM EST [facility] Urine URINE SPECIMEN COLLECTION, CLEAN CATCH / Unknown 04/29/2025 7:34 PM EST 04/29/2025 7:40 PM EST us Zara Ross MD URINE ORDERABLES Final Re sult Performing Organization Address City/[facility]/ZIP Co de Phone Number [facility] [address] [place] [address] * (ABNORMAL) Urinalysis, Reflex Microscopic and Culture If Indicated (04/29/2025 7:34 PM EST) Color, UA Light Yellow 04/29/2025 7:54 PM EST [facility] Clarity, UA Turbid 04/29/2025 7:54 PM EST [facility] Specific [place], UA 1.020 1.002 - 1.030 04/29/2025 7:54 PM EST [facility] pH, UA 7.0 5.0 - 9.0 04/29/2025 7:54 PM EST [facility] Leukocytes, UA Negative Negative 04/29/2025 7:54 PM EST [facility] Nitrite, UA Negative Negative 04/29/2025 7:54 PM EST [facility] Protein, UA Trace(A) Negative 04/29/2025 7:54 PM EST [facility] Glucose, UA Negative Negative 04/29/2025 7:54 PM EST [facility] Ketones, UA Negative Negative 04/29/2025 7:54 PM EST [facility] Bilirubin, UA Negative Negative 04/29/2025 7:54 PM EST [facility] Blood, UA Negative Negative 04/29/2025 7:54 PM EST [facility] Urobilinogen, UA 0.2 mg/dL Normal 04/29/2025 7:54 PM EST [facility] Specimen Source Urine, Clean Catch 04/29/2025 7:54 PM EST [facility] Urine URINE SPECIMEN COLLECTION, CLEAN CATCH / Unknown 04/29/2025 7:34 PM EST 04/29/2025 7:40 PM EST us Zara Ross MD URINE ORDERABLES Final Re sult [facility] [address] [place] [address] * D-dimer (04/29/2025 7:31 PM EST) D-Dimer, Quant ([facility]) 140.69 <=500.00 ng/mL FEU 04/29/2025 8:13 PM EST [facility] Comment: A normal D-dimer result [...] ORDERABLES Lainey l Result Performing Organization Address City/[facility] Co de Phone Number [facility] [address] [place] [address] * (ABNORMAL) High Sensitivity Troponin I (04/29/2025 7:31 PM EST) Troponin I High Sensitivity (pg/mL) <4(L) 4 - 60.3 pg/mL 04/29/2025 8:08 PM EST [facility] Comment: Troponin Result (pg/mL) *Interpretation [...] PM EST 04/29/2025 7:40 PM EST Result [facility] Zara Ross MD LAB BLOOD ORDERABLES Lainey l Result Performing Organization Address City/[facility]/ZIP Co de Phone Number [facility] [address] [place] [address] * Lipase (04/29/2025 7:31 PM EST) Lipase 40 16 - 77 U/L 04/29/2025 8:07 PM EST [facility] Blood Venipuncture / Unknown 04/29/2025 7:31 PM EST 04/29/2025 7:40 PM EST Zara Ross MD LAB BLOOD ORDERABLES Lainey l Result [facility] [address] [place] [address], [facility] [phone] * (ABNORMAL) Comprehensive metabolic panel (04/29/2025 7:31 PM EST) Sodium 140 136 - 145 meq/L 04/29/2025 8:07 PM [facility] Potassium 3.6 3.5 - 5.1 meq/L 04/29/2025 8:07 PM [facility] Chloride 102 98 - 107 meq/L 04/29/2025 8:07 PM [facility] CO2 29 21 - 32 meq/L 04/29/2025 8:07 PM [facility] Calcium 9.6 8.5 - 10.1 mg/dL 04/29/2025 8:07 PM [facility] Glucose 89 74 - 100 mg/dL 04/29/2025 8:07 PM [facility] BUN 12 7 - 18 mg/dL 04/29/2025 8:07 PM [facility] Creatinine 0.54(L) 0.55 - 1.10 mg/dL 04/29/2025 8:07 PM [facility] BUN/Creatinine 22 04/29/2025 8:07 PM [facility] Albumin 4.5 3.4 - 5.0 g/dL 04/29/2025 8:07 PM [facility] Alkaline Phosphatase 97 46 - 116 U/L 04/29/2025 8:07 PM [facility] ALT 12 12 - 78 U/L 04/29/2025 8:07 PM [facility] AST 12(L) 15 - 37 U/L 04/29/2025 8:07 PM [facility] Total Bilirubin 0.3 0.2 - 1.0 mg/dL 04/29/2025 8:07 PM [facility] Protein, Total 8.1 6.4 - 8.2 gm/dL 04/29/2025 8:07 PM [facility] Anion Gap 13 11 - 04/29/2025 8:07 PM [facility] A/G Ratio 1.3 04/29/2025 8:07 PM [facility] Globulin 3.6 g/dL 04/29/2025 8:07 PM [facility] Osmolality Calc 278.6 mOsm/kg 8:07 PM [facility] eGFR (mL/min/1.73m2) >60 >=60 mL/min/1.7 3m2 04/29/2025 8:07 PM [facility] Comment:ESTIMATED GFR IS NOT ACCURATE CREATININE CLEARANCE IN PREDICTING GLOMERULAR FILTRATION RATE. ESTIMATED GFR IS NOT APPLICABLE FOR DIALYSIS PATIENTS. Blood Venipuncture / Unknown 04/29/2025 7:31 PM EST 04/29/2025 7:40 PM EST Zara Ross MD LAB BLOOD ORDERABLES Lainey mckay Result [facility] [address] [place] [address] * hCG, quantitative, (04/29/2025 7:31 PM EST) HCG Serum Quant 1 mIU/mL 8:07 PM [facility] Comment: Results of the HCG [...] MD LAB BLOOD ORDERABLES Lainey nely Result [facility] [address] [id number], [facility] [phone] * (ABNORMAL) CBC with Auto Diff (04/29/2025 7:31 PM EST) WBC 9.4 4.8 - 10.8 K/ L 04/29/2025 7:44 PM [facility] RBC 4.73 3.50 - 5.20 M/ L 04/29/2025 7:44 PM [facility] Hemoglobin 13.7 11.7 - 15.8 GM/DL 04/29/2025 7:44 PM [facility] Hematocrit 41.2 35.0 - 47.0 % 04/29/2025 7:44 PM [facility] MCV 87 81 - 101 fL 04/29/2025 7:44 PM [facility] MCH 29.0 27.0 - 34.0 pg 04/29/2025 7:44 PM [facility] MCHC 33.3 32.0 - 36.0 GM/DL 04/29/2025 7:44 PM [facility] RDW 12.9 11.5 - 14.5 % 04/29/2025 7:44 PM [facility] Platelets 501(H) 150 - 400 K/CU MM 04/29/2025 7:44 PM [facility] MPV 9.1(L) 9.4 - 12.4 fL 04/29/2025 7:44 PM [facility] Nucleated Red Blood Cell 0.0 0 - 0.2 % 04/29/2025 7:44 PM [facility] % Neutros 64 37 - 80 % 04/29/2025 7:44 PM [facility] % Lymphs 28 10 - 50 % 04/29/2025 7:44 PM EST [facility] % Monos 7 5 - 13 % 04/29/2025 7:44 PM EST [facility] % Eos 0.5 0.0 - 7.0 % 04/29/2025 7:44 PM EST [facility] % Baso 0 0 - 3 % 04/29/2025 7:44 PM EST [facility] NRBC Absolute <0.01 0 - 0.012 K/ul 04/29/2025 7:44 PM EST [facility] # Neutros 6.04 2.00 - 6.90 K/ L 04/29/2025 7:44 PM [facility] # Lymphs 2.60 0.60 - 3.40 K/ L 04/29/2025 7:44 PM [facility] # Monos 0.69 0.00 - 0.90 K/ L 04/29/2025 7:44 PM EST [facility] # Eos 0.05 0.00 - 0.70 K/ L 04/29/2025 7:44 PM EST [facility] # Baso 0.04 0.00 - 0.20 K/ L 04/29/2025 7:44 PM [facility] % Imm Grans 0.10 % 04/29/2025 7:44 PM [facility] # IG 0.01(H) 0.00 - 0.00 K/uL 04/29/2025 7:44 PM EST [facility] Blood Venipuncture / Unknown 04/29/2025 7:31 PM EST 04/29/2025 7:40 PM EST Narrative [facility] - 04/29/2025 7:44 PM EST [...] MD LAB BLOOD ORDERABLES Lainey mckay Result [facility] [address] [phone] documented in this encounter Visit Diagnoses Diagnosis Periumbilical abdominal pain- Primary Abdominal pain, periumbilic documented in this encounter Care Teams Frog Or Oyster Farmworker Relationship Specialty Start Date End Date Sarika Moyer, PRODUCTION MAINTENANCE TECHNICIAN [address] [place] [address] PCP - General Nurse Practitioner 04/05/25 documented as of this encounter
--- OUTSIDE RECORDS SUMMARY | 2025-05-05 21:58 | XMS_ITS | Encounter Summary ---
Author Organization [employer] ([place], [place], [place], [place], [place]) Address [address] [place] [address] Care Team Providers Care Repairer General Name Role Phone Sarika Moyer WIPING RAG WASHER Primary Care Provider + Reason for Visit * Reason Comments Neck Pain Pt c/o neck pain brook t started this morning. Denies injury. Encounter Details Date Type Department Care Team (Late st Contact Info) Description 05/05/2025 9:58 PM EST - 05/05/2025 10:08 PM EST Emergency [facility] Emergency Department [address] [place] [phone] eKke Gar MD [address] [place] [address] Cervical paraspinal muscle spasm (Primary Dx) Discharge Disposition: Home or Self [...] Sign Reading Time Taken Comments Blood Pressure 118/84 05/05/2025 10:01 PM EST Pulse 80 05/05/2025 10:01 PM EST Temperature 36.8 C (98.2 F) 05/05/2025 10:01 PM EST Respiratory Rate 18 05/05/2025 10:01 PM EST Oxygen Saturation 97% 05/05/2025 10:01 PM EST Inhaled Oxygen Concentration - - Weight 38.6 kg (85 lb) 05/05/2025 10:01 PM EST Height 144.8 cm (4' 9 ) 05/05/2025 10:01 PM EST Body Mass Index 18.39 05/05/2025 10:01 PM EST documented in this encounter Discharge Instructions * Attachments The following attachments cannot be sent through Care Everywhere. * Muscle Cramps and Spasms (Greek) documented in this encounter Medications at Time of Discharge methocarbamoL (ROBAXIN) 500 MG tablet Take 1 tablet (500 mg total) by mouth 4 (four) times daily as needed for muscle spasms for up to 5 days. 20 tablet 05/05/2025 05/10/2025 documented as of this encounter ED Notes * Judith Vital PA-C - 05/05/2025 9:59 PM EST Subjective Chief Complaint: Neck Pain (Pt c/o neck pain that started this morning. Denies injury. ) Patient is a 25yo female who presents here to the emergency department with complaints of right neck and upper back pain after stretching her neck too far taking her shirt off this morning. She states that it felt really hot in the right side of her neck running up and then down into her upper backwhenever it first happened she states that it has improved that she took 400 mg of Motrin earlier today and 1000 mg of Tylenol this evening. She denies any numbness tingling or decreased range of motion no blurred vision headache or dizziness Patient History Past Medical History: Diagnosis Date [...] needed. Review of Systems Review of Systems Musculoskeletal: Positive for neck pain. Physical Exam ED Triage Vitals Encounter Vitals Group BP Girls Systolic BP Percentile Girls Diastolic BP Percentile Boys Systolic BP Percentile Boys Diastolic BP Percentile Pulse Resp Temp Temp src SpO2 Weight Height Head Circumference Peak Flow Pain Score Pain Loc Pain Education Exclude from Growth Chart Physical Exam Vitals and nursing note reviewed. Constitutional: General: She is not in acute distress. Appearance: Normal appearance. She is not ill-appearing or toxic-appearing. HENT: Head: Normocephalic and atraumatic. Mouth/Throat: Mouth: Mucous membranes are moist. Eyes: Extraocular Movements: Extraocular movements intact. Conjunctiva/sclera: Conjunctivae normal. Pupils: Pupils are equal, round, and reactive to light. Neck: Comments: No spinal tenderness, patient reports tenderness to palpate right paraspinal area into the trapezius muscle, palpable muscle spasm Pulmonary: Effort: Pulmonary effort is normal. Musculoskeletal: General: Normal range of motion. Cervical [...] time. Cranial Nerves CN III, IV, : Extraocular movements intact bilaterally. Pupils equal round and reactive to light bilaterally. Ortho Exam ED Course & MDM Medications methocarbamoL (ROBAXIN) tablet 1,000 mg (1,000 mg oral Given 05/05/25 2200) Results for orders placed or performed during [...] UA Light Yellow Clarity, UA Turbid Specific [place], UA 1.020 1.002 - 1.030 pH, UA [...] 78 BPM ATRIAL RATE (MCT) 78 BPM LA Interval 116 ms QRS-INTERVAL (MSEC) 80 ms QT Interval 376 ms QTC Interval 428 ms P [place] 52 degrees R AXIS (MCT) -52 degrees T Wave [place] 43 degrees [place] Diagnosis Normal sinus rhythm Left anterior fascicular block Cannot rule out Anterior infarct , age undetermined Confirmed by Rema RINALDI RICHARD ([id number]) on 05/01/2025 3:51:47 PM No orders to display Procedures Medical Decision Making Patient has no previous injury no numbness tingling decreased range of motion, palpable muscle spasm no spinal tenderness, imaging does not seem necessary at this time advise she take medication as prescribed, follow-up with PCP, and return to the emergency department new or worsening symptoms. Risk Prescription drug management. Assessment & Plan Clinical Impression Diagnosis Comment Added By Time Added Cervical paraspinal muscle spasm Judith Vital PA-C 05/05/2025 9:58 PM Disposition Discharge [1] - 05/05/2025 9:58 PM Current Discharge Medication List START taking these medications Details methocarbamoL (ROBAXIN) 500 MG tablet Take 1 tablet (500 mg total) by mouth 4 (four) times daily asneeded for muscle spasms for up to 5 days. Qty: 20 tablet, Refills: 0 Contact information for follow-up Sarika Moyer APRN Specialty: Nurse Practitioner Relationship: PCP - General [address] [facility] [address] Next Steps: Schedule an appointment as soon as possible for a visit [facility] Emergency Department Specialty: Emergency Medicine [address] [facility] [phone] Next Steps: Follow up Instructions: As needed, If symptoms worsen Electronically Signed By Judith Vital PA-C 05/05/252200 Judith Vital PA-C 05/05/252206 Cosigned by Keke Gar MD at 05/05/2025 10:08 PM EST CENTER NURSE CENTER NURSE CENTER NURSE Associated attestation - Keke Gar MD - 05/05/2025 9:08 PM CALL CENTER NURSE Based on the medical record, the care appears appropriate . documented in this encounter Plan of Treatment Not on file documented as of this encounter Visit Diagnoses Diagnosis Cervical paraspinal muscle spasm- Primary Spasm of muscle documented in this encounter Administered Medications Inactive Administered Medications - up to 3 most recent administrations Medication Order MAR Action Action Date Dose Rate Site methocarbamoL (ROBAXIN) tablet 1,000 mg 1,000 mg Once, oral, On Sat05/05/25 at 2200, For 1 dose Given 05/05/2025 10:00 PM EST 1,000 mg documented in this encounter Active and Recently Administered Medications Times are shown in EST. Scheduled Medication Order 05/03/2025 05/04/2025 05/05/2025 methocarbamoL (ROBAXIN) tablet 1,000 mg (COMPLETED) 1,000 mg Once, oral, On Sat05/05/25 at 2200, For 1 dose 2200 (Given - Provid er: Jevon Ruiz) documented in this encounter Care Teams Repairer General Relationship Specialty Start Date End Date Sarika Moyer, WIPING RAG WASHER [address] [phone] PCP - General Nurse Practitioner 04/05/25 documented as of this encounter
--- OUTSIDE RECORDS SUMMARY | 2025-05-09 08:03 | XMS_ITS | Encounter Summary ---
Author Organization [employer] ([place], [place], [place], [place], [place]) Address [address] [place] [address] Care Team Providers Care Claim Adjuster Name Role Phone Sarika Moyer ORTHOPEDIC NURSE PRACTITIONER Primary Care Provider + Reason for Visit * Reason Comments Neck Pain Pt reports twisting her neck Saturday while putting on a hoodie. Still c/o pain in neck. Encounter Details Date Type Department Care Team (Late st Contact Info) Description 05/09/2025 8:03 AM EST - 05/09/2025 10:03 AM EST Emergency [facility] Emergency Department [address] [place] [phone] Elsa Morton MD [address] [place] [address] Neck pain on right side (Primary Dx); Headache Discharge Disposition: Home or Self Care Social [...] Reading Time Taken Comments Blood Pressure 120/86 05/09/2025 10:02 AM EST Pulse 94 05/09/2025 10:02 AM EST Temperature 36.9 C (98.4 F) 05/09/2025 8:09 AM EST Respiratory Rate 16 05/09/2025 10:02 AM EST Oxygen Saturation 97% 05/09/2025 10:02 AM EST Inhaled Oxygen Concentration - - Weight 37.6 kg (83 lb) 05/09/2025 8:09 AM EST Height 144.8 cm (4' 9 ) 05/09/2025 8:09 AM EST Body Mass Index 17.96 05/09/2025 8:09 AM EST documented in this encounter Discharge Instructions * Attachments The following attachments cannot be sent through Care Everywhere. * General Headache Without Cause [id number] (Micronesian) * Cervical Sprain (Micronesian) * Panic Attack Bfer-if-Qlfa (Micronesian) * Somatic Symptom Disorder (Micronesian) documented in this encounter Medications at Time of Discharge hydrOXYzine (ATARAX) 25 MG tablet Take 1 tablet (25 mg total) by mouth every 8 (eight) hours as needed for itching for up to 10 days Look-alike/ Sound-alike medication. 30 tablet 05/09/2025 05/19/2025 methocarbamoL (ROBAXIN) 500 MG tablet Take 1 tablet (500 mg total) by mouth 4 (four) times daily as needed for muscle spasms for up to 5 days. 20 tablet 05/05/2025 05/10/2025 documented as of this encounter ED Notes * Elsa Morton MD - 05/09/2025 8:31 AM EST Subjective Chief Complaint: Neck Pain (Pt reports twisting her neck Saturday while putting on a hoodie. Still c/o pain in neck. ) HPI This is a 25-year-old show with history of anxiety who presents with concerns of headache, neck pain. She notes on Saturday she was pulling her sweatshirt over her head. 2 days later she developed right sided neck pain, muscle spasm. She notes she has googled all my symptoms and she is a reported hypochondriac but she is very concerned for possible brain bleed or neck problem. She also notes thatshe is not willing to do IV contrast as she notes that many people in my family are allergic to this . She ultimately is very concerned regarding head CT and x-rays. Patient History Past Medical History: Diagnosis Date [...] needed. Review of Systems Review of Systems Physical Exam ED Triage Vitals [05/09/25 0809] Encounter Vitals Group BP 133/81 Girls Systolic BP Percentile Girls Diastolic BP Percentile Boys Systolic BP Percentile Boys Diastolic BP Percentile Pulse 99 Resp 18 Temp 98.4 ??F (36.9 ??C) Temp src Temporal Art SpO2 98 % Weight 37.6 kg (83 lb) Height 1.448 m (4' 9 ) Head Circumference Peak Flow Pain Score Six Pain Loc Pain Education Exclude from Growth Chart Vitals: 05/09/25 0900 05/09/25 0915 05/09/25 1000 05/09/25 1002 BP: 99/56 120/86 120/86 BP Location: Right arm Patient Position: Sitting Pulse: 70 105 89 94 Resp: 16 Temp: TempSrc: SpO2: 100% 100% 98% 97% Weight: Height: Physical Exam Neurological Exam Ortho Exam GENERAL: Well-developed, well-nourished. Anxious HEENT: Normocephalic, atraumatic. Dry mucous membranes NECK: No signs of meningismus. Flexion, extension, abduction, adduction intact. No tracheal deviation. Mild tenderness to palpation of the right upper trapezius HEART: Regular rate LUNGS: No respiratory distress ABDOMEN: Nondistended EXTREMITIES: Moving all four extremities with no acute deformity or joint effusions SKIN: Warm, dry, well-perfused. NEURO: Alert, awake, and oriented to person, place, and time. Patient has facial symmetry with smile, raising and lowering the eyebrows, puffing out of cheeks. No uvular deviation. No tongue deviation with protrusion. Equal shrug. No drift in the bilateral upper and lower extremities. Patient has gross strength intact in the upper and lower extremities. Gross sensation is intact in bilateral upper and lower extremities. Patient has equal, round, reactive pupils bilaterally. Swinging flashlight test is intact. Extraocular movements are intact. No pain with extraocular movements. Negative Romberg. Patient is able to ambulate without difficulty. ED Course & MDM Medications - No data to display XR spine cervical 2 or 3 views Final Result No acute process. Images reviewed, interpreted, and dictated by Dr. Cheyanne May. Transcribed by Liyah Syed CT brain without IV contrast Final Result No acute intracranial process . Images reviewed, interpreted, and dictated by Dr. Cheyanen May. Transcribed by Liyah Syed ED Course as of 05/09/25 Allison Daniel May 09, [address] head reviewed and personally interpreted and notable for no obvious epidural hematoma. [KH] 0950 On final reevaluation, patient notes she has substantial anxiety from her recent ectopic . Her anxiety is focused on medical issues that could happen to her. It was not ruptured, it is medically managed but she notes that she has been having severe anxiety since then. She has not yet seen outpatient psychiatrist nor is on any medication. I informed her that I would refer to outpatient psychiatry. She is appreciative. [KH] ED Course User Index [KH] Elsa Morton MD Procedures Medical Decision Making Amount and/or Complexity of Data Reviewed Radiology: ordered. Risk Prescription drug management. This is a 25-year-old female history of anxiety who presents with headache, musculoskeletal neck pain. Vitals on presentation are overall reassuring. Clinically patient has a very reassuring exam, negative neuro examination. Patient is very anxious on examination. Doubt patient has carotid artery di ssection but I did offer CTA neck to evaluate for twisting/shearing forces. She is very skittish when it comes to IV contrast and after a shared decision-making conversation, this will be deferred. The incident she is concerned about is very low mechanism. I think this is more than reasonable and clinically she has no neurologic symptoms or signs. She is concerned regarding this headache and is concerned for ICH, therefore head CT was ordered. C-spine x-rays were ordered to rule out obvious fracture. Patient was offered numerous different types of pain medications, muscle relaxers, anti-inflammatories but she refused the saying that she needed to drive home. She is also very wary of medication in general. Understanding of need to follow-up in the outpatient setting. Differential includes but is not limited to carotid artery dissection, fracture, strain, sprain, muscle spasm, anxiety. Assessment & Plan Clinical Impression Diagnosis Comment Added By Time Added Neck pain on right side Elsa Morton MD 05/09/2025 8:35 AM Headache Elsa Morton MD 05/09/2025 8:35 AM Disposition Discharge [1] - 05/09/2025 9:46 AM Discharge Medication List as of 05/09/2025 9:56 AM START taking these medications Details hydrOXYzine (ATARAX) 25 MG tablet Take 1 tablet (25 mg total) by mouth every 8 (eight) hours as needed for itching for up to 10 days Look-alike/Sound-alike medication., Starting 05/09/2025, Until 05/19/2025 at 2359, Normal Contact information for follow-up Sarika Moyer APRN Specialty: Nurse Practitioner Relationship: PCP - General [address] [address] Next Steps: Call in 1 day(s) Instructions: Please call your PCP and follow-up appropriately Sachin Holliday MD Psychiatry [phone] [address] [place], [address] [place] [address] [email or web address] Next Steps: Call in 1 day(s) Instructions: This is the name of a psychiatrist in [place] who sees them specifically overall patient's and offers online services for anxiety and depression. Please call this phone number to schedule follow-up. He accepts Medicare/Medicaid as well as other insurances. Electronically Signed By Elsa Morton MD 05/09/25 1007 E SUBSTANCE ABUSE documented in this encounter Plan of Treatment Not on file documented as of this encounter Procedures Procedure Name Priority Date/Time Associated Diagnosis Comments XR SPINE CERVICAL 2 OR 3 VIEWS STAT 05/09/2025 8:[address] BRAIN WITHOUT IV CONTRAST STAT 05/09/2025 8:43 AM EST documented in this encounter Results * XR spine cervical 2 or 3 views (05/09/2025 8:44 AM EST) Anatomical Region Laterality Modality C-spine, T-spine, Neck X-Ray 05/09/2025 9:42 AM EST Impressions 05/09/2025 9:58 AM EST No acute process. Images reviewed, interpreted, and dictated by Dr. Cheyanne May. Transcribed by Liyah Syed Narrative 05/09/2025 9:58 AM EST CERVICAL SPINE SERIES HISTORY: Acute neck pain, twisting injury COMPARISON:None FINDINGS: Three views of the cervical spine were obtained. There is reversal of normal cervical lordosis centered at C4-5. The prevertebral soft tissues are unremarkable. There is normal alignment. The facets overlap at all levels. The disc spaces are well-maintained. There is no subluxation or fracture. The vertebral heights are preserved. Procedure Note Cheyanne May MD - 05/09/2025 CERVICAL SPINE SERIES HISTORY: Acute neck pain, twisting injury COMPARISON:None FINDINGS: Three views of the cervical spine were obtained. There is reversal of normal cervical lordosis centered at C4-5. The prevertebral soft tissues are unremarkable. There is normal alignment. The facets overlap at all levels. The disc spaces are well-maintained. There is no subluxation or fracture. The vertebral heights are preserved. IMPRESSION: No acute process. Images reviewed, interpreted, and dictated by Dr. Cheyanne May. Transcribed by Liyah Syed Elsa Morton MD [facility] DIAGNOSTIC IMAGING ORDERABL ES Final Result * CT brain without IV contrast (05/09/2025 8:43 AM EST) Anatomical Region Laterality Modality Brain, Head Computed Tomogra phy (CT) 05/09/2025 9:43 AM EST Impressions 05/09/2025 9:58 AM EST No acute intracranial process . Images reviewed, interpreted, and dictated by Dr. Cheyanne May. Transcribed by Liyah Syed Narrative 05/09/2025 9:[address] 05/09/2025 8:28 AM HISTORY: Acute headache. COMPARISON: None. TECHNIQUE: Multiple axial CT images were performed from the foramen magnum to the vertex. This study was performed with techniques to keep radiation doses as low as reasonably achievable, (ALARA). Individualized dose reduction techniques using automated exposure control or adjustment of mA and/or kV according to the patient size were employed. FINDINGS: The ventricles are normal in size . There is no evidence of hemorrhage . No masses are identified . No extra-axial fluid is seen . The sinuses and mastoids are clear except for a small left maxillary polyp or mucous retention cyst. Procedure Note Cheyanne May MD - 05/09/[address] 05/09/2025 8:28 AM HISTORY: Acute headache. COMPARISON: None. TECHNIQUE: Multiple axial CT images were performed from the foramen magnum to the vertex. This study was performed with techniques to keep radiation doses as low as reasonably achievable, (ALARA). Individualized dose reduction techniques using automated exposure control or adjustment of mA and/or kV according to the patient size were employed. FINDINGS: The ventricles are normal in size . There is no evidence of hemorrhage . No masses are identified . No extra-axial fluid is seen . The sinuses and mastoids are clear except for a small left maxillary polyp or mucous retention cyst. IMPRESSION: No acute intracranial process . Images reviewed, interpreted, and dictated by Dr. Cheyanne May. Transcribed by Liyah Syed us Elsa Morton MD IMG CT ORDERABLES Final Result documented in this encounter Visit Diagnoses Diagnosis Neck pain on right side- Primary Headache documented in this encounter Care Teams Claim Adjuster Relationship Specialty Start Date End Date Sarika Moyer, ORTHOPEDIC NURSE PRACTITIONER [address] [place] [phone] PCP - General Nurse Practitioner 04/05/25 documented as of this encounter
--- OUTSIDE RECORDS SUMMARY | 2025-05-18 06:19 | XMS_ITS | Continuity of Care Document ---
Author Organization [facility] Address [address] [place] [address] Phone Care Team Providers Care Business Support Manager Name Role Phone Beryl De La Cruz Unavailable Unavailable Advance Directives Directive Yes / No Effective Date File Name No Information Encounters Encounter Description Practice Location Reason(s) For Visit Diagnoses Date Provider [facility], [address] [place] [address], [facility], tel:[phone] [facility] Generalized Anxiety Disorder 2024 King Kiersten. Ta [facility], [address] [place] [address], [facility], tel:[phone] [facility] Generalized Anxiety Disorder 2024 Geronimo BerylKeyon Ta [facility], [address] [place] [address], [facility], tel:[phone] [facility] Generalized Anxiety Disorder 2024 King Kiersten. Ta Family History Family Member Type Diagnosis Age At Onset Mother Problem Anxiety disorder Payers Payer name Insurance type Covered democrat ID Authoriza tion(s) [facility] Medicaid [facility]/[employer] CI [id number] Social History Type Description Quantity Date Captured Comments Sex Female Smoking Status No Information Sexual Orientation Straight or heterosexual May Gender Identity Female Chief Complaint And Reason For Visit No Information History Of Present Illness Encounter Date Complaint History Of Prese nt Illness No Information Instructions Date Instruction Additional Infor mation No Information Assessments Type Assessment Date assessment Generalized Anxiety Disorder May
[2025-05-24] VITALS (9 sets, daily range): BP systolic 110–156; BP diastolic 78–104; PULSE 65–127; RESP 16–18; TEMP 36.6–36.8; O2SAT 91–100; BMI 18.3
[2025-05-24 12:52] LABS: Coronavirus 19, PCR Not Detected (NotDetected); Influenza A, PCR Not Detected (NotDetected); Influenza B, PCR Not Detected (NotDetected)
--- NOTE | 2025-05-24 13:08 | ED_ITS ---
<Statement entered by Divina Dwyer DO - 05/25/25 00:41> I was consulted by the DOMINGA, and we discussed the complexity of problems being addressed. I approve the treatment and management plan for this patient's care in the emergency department, thus performing a substantial portion of the medical decision making. Divina Dwyer DO Discharge Plan Disposition Patient Disposition: Xfer Psychiatric Hosp Condition: Fair Prescriptions Prescriptions: No Action clomipramine 25 mg capsule 25 mg PO DAILY Qty: 30 2RF Referrals Follow up/Referrals: Sarika Moyer APRN [Primary Care Provider, Medical] - See instructions Activity Restrictions/Add. Instructions Additional Instructions/Restrictions: Please go straight to [facility] address for your consultation and treatment. Please return to the emergency department any worsening signs or symptoms Clinical Impressions Clinical Impression: Illness anxiety disorder, Anxiety Stand Alone Forms Stand Alone Forms: Transfer Record - ED Instructions Patient Instructions: DI for Diarrhea and Traveler's Diarrhea in Adults, DI for Diarrhea and Traveler's Diarrhea in Children, DI for Nausea in Adults, DI for Nausea in Children Print Language Print Language: Swiss Discharge ED Provider: Chet Hernandez General Adult HPI <MICHAEL Kimble - Last Filed: 05/24/25 16:03> General Chief complaint: Nausea/Vomiting/Diarrhea Stated complaint: weakness, lightheaded x 2 days Time Seen by Provider: 05/24/25 13:07 Mode of Arrival: Ambulatory Source of Information: Patient Description of Symptoms (Recalled from ER Triage Doc. by RN): Patient states she has been feeling weak and shaky for the last 2 days. Denies any vomiting or diarrhea, but states she has been feeling nauseaous. 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 difficile , denies any recent antibiotic use, denies any recent hospitalization, denies any hematuria melena hematochezia hematemesis or hemoptysis, patient does state that she is on her menstrual cycle. Patient is a current everyday tobacco user (vapes), denies any alcohol or other drug use. Patient adamantly denies any SI or HI, patient states that she has previously had antianxiety medications and psychotic medications, but has not been taking them due to fear , patient states I just think I am dying . With outside records being obtained via fax, patient has had since March nearly 20 emergency department visits at this facility, with outside records showing an emergency department visit at OSH last night, as well as multiple other OSH ED visits in the past month. Initial triage vitals noted for tachycardia otherwise unremarkable. Please note that above description of symptoms, in this electronic medical record under categorization of recalled from ER triage doctor by RN are reflective of an initial nursing assessment, however, is not reflective of my full history and physical exam that was personally taken and clarified. Consequentially, this preceding description of symptoms, which may include the patient's categorized chief complaint in the EMR, do not reflect my personal clinical impression, and the ultimate description of history of present illness and patient stated complaints should be deferred to this section of the note. Unless stated otherwise or congruent with this section of the note, additional signs, symptoms, or incongruence should be interpreted as inaccurate with my clinical impression. Onset (ago): day(s) Related Data Previous Rx's ?Medication ?Instructions ?Recorded clomipramine 25 mg capsule 25 mg PO DAILY #30 caps 09/25 Allergies Allergy/AdvReac Type Severity Reaction Status Date / Time escitalopram (From Lexapro) Allergy Severe Anaphylaxis Verified 05/06/25 13:58 dextromethorphan Allergy Hyper Verified 05/06/25 13:58 activity guaifenesin (From Robitussin) Allergy hyper Verified 05/06/25 13:58 activity PFSH <MICHAEL Kimble - Last Filed: 05/24/25 16:03> [facility] Disclaimer: The information contained in this section may have been updated after the patient was seen, as this information can be updated by other users. Medical History No significant medical problems Surgical History History of tonsillectomy and adenoidectomy H/O oral surgery Family History Other No significant family history Social History Smoking Status: Current every day smoker tobacco type: e-cigarettes alcohol intake: never current occupational status: employed Travel in the last 8 weeks?: None household members: spouse Have you lived/traveled outside US in past 30 days?: No Contact w/someone who lives/traveled outside US past 30 days?: No Exposure to someone with infectious disease in past 14 days?: No Do you have a fever (greater than 100.4 F or 38 C)?: No Have you tested positive for COVID-19?: No Exposed to someone with COVID-19 in past 14 days?: No Do you have a sore throat?: No Do you have a cough?: No Do you have any weakness?: No Do you have any diarrhea?: No Are you experiencing any unusual bleeding?: No Do you have any muscle aches/pain?: No Do you have any abdominal pain?: No Are you experiencing loss of taste or smell?: No Other Medical History Have you received the Pneumonia Vaccine: No <MICHAEL Kimble - Last Filed: 05/24/25 16:03> ROS Obtained: Yes All systems reviewed & no additional complaints except as documented Physical Exam <MICHAEL Kimble - Last Filed: 05/24/25 16:03> General General appearance: alert, in no apparent distress and anxious Comment: Severely anxious appearing actively shaking Head Head exam: atraumatic and normocephalic Eye Eye exam: Present PERRL and EOMI ENT ENT exam: Present mucous membranes moist Neck Neck exam: Present normal inspection Chest Chest inspection: Present normal inspection and symmetric chest wall rise Respiratory Respiratory exam: Present normal lung sounds bilaterally; Absent respiratory distress Cardiovascular Cardiovascular exam: Present normal rhythm and tachycardia Abdominal Exam Abdominal exam: Present soft; Absent tenderness or rebound Extremities Exam Extremities exam: Present normal inspection Neurological Exam Neurological exam: Present alert and oriented X3 Psychiatric Psychiatric exam: Present anxious and other (Paranoid behavior); Absent normal affect, homicidal ideation or suicidal ideation Skin Skin exam: Present warm and dry Medical Decision Making <MICHAEL Kimble - Last Filed: 05/24/25 16:03> Medical Records Medical records reviewed: Yes I reviewed the patient's medical records. Screening: Per USPSTF and CDC recommendations, given the prevalence of disease in our region, it is our hospital?s policy to screen for HIV and viral Hepatitis for all patients aged 18 and over and those with ongoing risk factors. Lucho Inquiry Pt receiving controlled substance: No Lucho was queried for this patient: No Vital Signs: 05/24/25 12:44 05/24/25 14:02 05/24/25 14:12 Temperature 97.9 F Temperature Source Oral Pulse Rate 110 H 127 H Pulse Rate [Right Brachial] 109 H Respiratory Rate 16 Blood Pressure 154/100 H 156/102 H Blood Pressure [Right Arm] 127/84 Blood Pressure Mean [Right Arm] 98 Blood Pressure Source [Right Arm] Automatic Cuff Blood Pressure Position [Right Arm] Sitting 02 Sat by Pulse Oximetry 100 97 96 Oxygen Delivery Method Room Air Room Air 05/24/25 14:21 05/24/25 14:42 05/24/25 14:51 Temperature Temperature Source Pulse Rate 107 H 115 H 118 H Pulse Rate [Right Brachial] Respiratory Rate Blood Pressure 131/91 H 142/104 H 128/100 H Blood Pressure [Right Arm] Blood Pressure Mean [Right Arm] Blood Pressure Source [Right Arm] Blood Pressure Position [Right Arm] 02 Sat by Pulse Oximetry 91 L 97 97 Oxygen Delivery Method 05/24/25 14:59 05/24/25 15:08 05/24/25 16:04 Temperature 98.3 F Temperature Source Pulse Rate 107 H 96 H 65 Pulse Rate [Right Brachial] Respiratory Rate 18 Blood Pressure 128/91 H 132/90 110/78 Blood Pressure [Right Arm] Blood Pressure Mean [Right Arm] Blood Pressure Source [Right Arm] Blood Pressure Position [Right Arm] 02 Sat by Pulse Oximetry 99 99 Oxygen Delivery Method Room Air Lab Data Lab results reviewed: Yes I reviewed the patient's lab results. Lab Results 05/24/25 12:40: SARS-CoV-2 (PCR) Not detected, Influenza A Untype (PCR) Not detected, Influenza Type B (PCR) Not detected 05/24/25 13:29: WBC 10.5, RBC 4.79, Hgb 14.2, Hct 41.0, MCV 85.6, MCH 29.6, MCHC 34.6, RDW 12.2, Plt Count 509 H, MPV 9.7, Neut % (Auto) 71.6, Lymph % (Auto) 21.3, [place] % (Auto) 5.7, Eos % (Auto) 0.2, Baso % (Auto) 0.6, Neut # (Auto) 7.5, Lymph # (Auto) 2.2, [place] # (Auto) 0.6, Eos # (Auto) 0.0, Baso # (Auto) 0.1, Sodium 139, Potassium 3.3 L, Chloride 103, Carbon Dioxide 25, Anion Gap 14.3, BUN 15, Creatinine 0.60, Estimated Creat Clear 89, Estimated GFR 124, Est GFR ( Amer) 150, Glucose 101 H, Calcium 10.1, Magnesium 2.0, Total Bilirubin 0.9, AST 30, ALT 12, Alkaline Phosphatase 94, Total Protein 8.3 H, Albumin 5.2 H , Globulin 3.1, Albumin/Globulin Ratio 1.7, Serum HCG, Qual Negative, Urine Color Lamb, Urine Appearance Cloudy, Urine pH 6.5, Ur Specific Dennis >= 1.030, Urine Protein 2+ A, Urine Glucose (UA) Negative, Urine Ketones 3+, Urine Blood 3+ A, Urine Nitrate Negative, Urine Bilirubin 1+ A, Urine Urobilinogen 1.0, Ur Leukocyte Esterase Negative, Urine RBC 50-100, Urine WBC 3-5, Ur Squamous Epith Cells Occasional, Urine Bacteria Trace, Salicylates < 1.0 L, Urine Opiates Screen Negative, Urine Methadone Screen Negative, Acetaminophen < 10 L, Ur Barbituates Screen Negative, Ur Phencyclidine Scrn Negative, Ur Amphetamines Screen Negative, U Benzodiazepines Scrn Negative, Urine Cocaine Screen Negative, U Marijuana (THC) Screen Negative, Plasma/Serum Alcohol < 10 05/24/25 13:29 05/24/25 13:29 Orders (Tests/Meds): ED MEDICATIONS Discontinued Medications Generic Name Dose Route Start Last Admin Trade Name Freq PRN Reason Stop Dose Admin Potassium Chloride 40 meq 05/24/25 14:28 05/24/25 14:36 Potassium Chloride 20meq Tab PO 05/24/25 14:29 40 meq ONCE ONE Administration ORDERS Category Date Time Status Acetaminophen Stat Lab 05/24/25 13:29 Completed Complete Blood Count Auto Diff Stat Lab 05/24/25 13:29 Completed Comprehensive Metabolic Panel Stat Lab 05/24/25 13:29 Completed Drug Screen,Urine Stat Lab 05/24/25 13:29 Completed Ethanol [Ethyl Alcohol] Stat Lab 05/24/25 13:29 Completed HCG Qualitative, Serum Stat Lab 05/24/25 13:29 Completed Magnesium Stat Lab 05/24/25 13: Completed Rapid PCR Covid and Flu A/B Stat Lab 05/24/25 12:40 Completed Salicylate Stat Lab 05/24/25 13: Completed Urinalysis and Microscopic Stat Lab 05/24/25 13: Completed Medical Decision Narrative: 25-year-old female presents to the emergency department with multiple symptomatology, see HPI for detailed past medical history, differential diagnose include but not limited to, anxiety, panic attack, illness anxiety disorder, PTSD, acute stress disorder, borderline personality disorder, acute psychosis, among others. I discussed this patient's case with the attending physician Dr. Hernandez Will obtain basic laboratory studies, EKG, acetaminophen level, serum hCG, salicylate level at the alcohol level, UDS, magnesium PCR COVID and flu, urinalysis diarrheal panel CBC is notable for thrombocytosis 509 COVID-19 and influenza are negative via PCR CMP is notable for hypokalemia 3.3, thus replace with 40 mill equivalents p.o. potassium, otherwise unremarkable CMP Salicylate level and acetaminophen level alcohol level within normal limit. UA is notable for 2+ proteinuria, 3+ hematuria 1+ bilirubin, 50-100 RBCs 3-5 WBCs occasional squamous cells and urine bacteria trace UDS is negative Chet Hernandez MD: I was consulted by the DOMINGA, and we discussed the complexity of the problems being addressed. I approved the treatment and management plan for this patient's care in the emergency department, thus performing a substantive portion of the medical decision making. I agree with initial workup and final disposition was pending at time of transition of care to the oncoming physician, Dr. Dwyer. hCG qualitative negative. Notified by nursing staff that the [facility] reviewed all the patient's records, and discussed case with nursing staff, patient was accepted at the [facility] by . Both I and attending physician Dr. Hernandez had a long discussion with the patient at the bedside, patient would like to go POV to the [facility], discussed all risk and benefits of going POV, patient voiced understanding and agreement with the current treatment plan/transfer plan. <Chet Hernandez MD - Last Filed: 05/24/25 15:03> Vital Signs: 05/24/25 12:44 05/24/25 14:02 05/24/25 14:12 Temperature 97.9 F Temperature Source Oral Pulse Rate 110 H 127 H Pulse Rate [Right Brachial] 109 H Respiratory Rate 16 Blood Pressure 154/100 H 156/102 H Blood Pressure [Right Arm] 127/84 Blood Pressure Mean [Right Arm] 98 Blood Pressure Source [Right Arm] Automatic Cuff Blood Pressure Position [Right Arm] Sitting 02 Sat by Pulse Oximetry 100 97 96 Oxygen Delivery Method Room Air Room Air 05/24/25 14:21 05/24/25 14:42 05/24/25 14:51 Temperature Temperature Source Pulse Rate 107 H 115 H 118 H Pulse Rate [Right Brachial] Respiratory Rate Blood Pressure 131/91 H 142/104 H 128/100 H Blood Pressure [Right Arm] Blood Pressure Mean [Right Arm] Blood Pressure Source [Right Arm] Blood Pressure Position [Right Arm] 02 Sat by Pulse Oximetry 91 L 97 97 Oxygen Delivery Method 05/24/25 14:59 05/24/25 15:08 05/24/25 16:04 Temperature 98.3 F Temperature Source Pulse Rate 107 H 96 H 65 Pulse Rate [Right Brachial] Respiratory Rate 18 Blood Pressure 128/91 H 132/90 110/78 Blood Pressure [Right Arm] Blood Pressure Mean [Right Arm] Blood Pressure Source [Right Arm] Blood Pressure Position [Right Arm] 02 Sat by Pulse Oximetry 99 99 Oxygen Delivery Method Room Air Lab Data Lab Results 05/24/25 12:40: SARS-CoV-2 (PCR) Not detected, Influenza A Untype (PCR) Not detected, Influenza Type B (PCR) Not detected 05/24/25 13:29: WBC 10.5, RBC 4.79, Hgb 14.2, Hct 41.0, MCV 85.6, MCH 29.6, MCHC 34.6, RDW 12.2, Plt Count 509 H, MPV 9.7, Neut % (Auto) 71.6, Lymph % (Auto) 21.3, [place] % (Auto) 5.7, Eos % (Auto) 0.2, Baso % (Auto) 0.6, Neut # (Auto) 7.5, Lymph # (Auto) 2.2, [place] # (Auto) 0.6, Eos # (Auto) 0.0, Baso # (Auto) 0.1, Sodium 139, Potassium 3.3 L, Chloride 103, Carbon Dioxide 25, Anion Gap 14.3, BUN 15, Creatinine 0.60, Estimated Creat Clear 89, Estimated GFR 124, Est GFR ( Amer) 150, Glucose 101 H, Calcium 10.1, Magnesium 2.0, Total Bilirubin 0.9, AST 30, ALT 12, Alkaline Phosphatase 94, Total Protein 8.3 H, Albumin 5.2 H , Globulin 3.1, Albumin/Globulin Ratio 1.7, Serum HCG, Qual Negative, Urine Color Lamb, Urine Appearance Cloudy, Urine pH 6.5, Ur Specific Dennis >= 1.030, Urine Protein 2+ A, Urine Glucose (UA) Negative, Urine Ketones 3+, Urine Blood 3+ A, Urine Nitrate Negative, Urine Bilirubin 1+ A, Urine Urobilinogen 1.0, Ur Leukocyte Esterase Negative, Urine RBC 50-100, Urine WBC 3-5, Ur Squamous Epith Cells Occasional, Urine Bacteria Trace, Salicylates < 1.0 L, Urine Opiates Screen Negative, Urine Methadone Screen Negative, Acetaminophen < 10 L, Ur Barbituates Screen Negative, Ur Phencyclidine Scrn Negative, Ur Amphetamines Screen Negative, U Benzodiazepines Scrn Negative, Urine Cocaine Screen Negative, U Marijuana (THC) Screen Negative, Plasma/Serum Alcohol < 10 Orders (Tests/Meds): ED MEDICATIONS Discontinued Medications Generic Name Dose Route Start Last Admin Trade Name Freq PRN Reason Stop Dose Admin Potassium Chloride 40 meq 05/24/25 14:28 05/24/25 14:36 Potassium Chloride 20meq Tab PO 05/24/25 14:29 40 meq ONCE ONE Administration ORDERS Category Date Time Status Acetaminophen Stat Lab 05/24/25 13:29 Completed Complete Blood Count Auto Diff Stat Lab 05/24/25 13:29 Completed Comprehensive Metabolic Panel Stat Lab 05/24/25 13:29 Completed Drug Screen,Urine Stat Lab 05/24/25 13:29 Completed Ethanol [Ethyl Alcohol] Stat Lab 05/24/25 13:29 Completed HCG Qualitative, Serum Stat Lab 05/24/25 13:29 Completed Magnesium Stat Lab 05/24/25 13:29 Completed Rapid PCR Covid and Flu A/B Stat Lab 05/24/25 12:40 Completed Salicylate Stat Lab 05/24/25 13:29 Completed Urinalysis and Microscopic Stat Lab 05/24/25 13:29 Completed ECG Data Tracing #1: Independently interpreted by me rate is 102, rhythm is regular, no ST elevation in anatomical contiguous leads, QTc 394. Medical Decision Narrative: 25-year-old female presents to the emergency department with multiple symptomatology, see HPI for detailed past medical history, differential diagnose include but not limited to, anxiety, panic attack, illness anxiety disorder, PTSD, acute stress disorder, borderline personality disorder, acute psychosis, among others. I discussed this patient's case with the attending physician Dr. Hernandez Will obtain basic laboratory studies, EKG, acetaminophen level, salicylate level at the alcohol level, UDS, magnesium PCR COVID and flu, urinalysis diarrheal panel CBC is notable for thrombocytosis 509 COVID-19 and influenza are negative via PCR CMP is notable for hypokalemia 3.3, thus replace with 40 mill equivalents p.o. potassium, otherwise unremarkable CMP Salicylate level and acetaminophen level alcohol level within normal limit. UA is notable for 2+ proteinuria, 3+ hematuria 1+ bilirubin, 50-100 RBCs 3-5 WBCs occasional squamous cells and urine bacteria trace UDS is negative Chet Hernandez MD: I was consulted by the DOMINGA, and we discussed the complexity of the problems being addressed. I approved the treatment and management plan for this patient's care in the emergency department, thus performing a substantive portion of the medical decision making. I agree with initial workup and final disposition was pending at time of transition of care to the oncoming physician, Dr. Dwyer. <Divina Dwyer, DO - Last Filed: 05/25/25 00:45> Vital Signs: 05/24/25 12:44 05/24/25 14:02 05/24/25 14:12 Temperature 97.9 F Temperature Source Oral Pulse Rate 110 H 127 H Pulse Rate [Right Brachial] 109 H Respiratory Rate 16 Blood Pressure 154/100 H 156/102 H Blood Pressure [Right Arm] 127/84 Blood Pressure Mean [Right Arm] 98 Blood Pressure Source [Right Arm] Automatic Cuff Blood Pressure Position [Right Arm] Sitting 02 Sat by Pulse Oximetry 100 97 96 Oxygen Delivery Method Room Air Room Air 05/24/25 14:21 05/24/25 14:42 05/24/25 14:51 Temperature Temperature Source Pulse Rate 107 H 115 H 118 H Pulse Rate [Right Brachial] Respiratory Rate Blood Pressure 131/91 H 142/104 H 128/100 H Blood Pressure [Right Arm] Blood Pressure Mean [Right Arm] Blood Pressure Source [Right Arm] Blood Pressure Position [Right Arm] 02 Sat by Pulse Oximetry 91 L 97 97 Oxygen Delivery Method 05/24/25 14:59 05/24/25 15:08 05/24/25 16:04 Temperature 98.3 F Temperature Source Pulse Rate 107 H 96 H 65 Pulse Rate [Right Brachial] Respiratory Rate 18 Blood Pressure 128/91 H 132/90 110/78 Blood Pressure [Right Arm] Blood Pressure Mean [Right Arm] Blood Pressure Source [Right Arm] Blood Pressure Position [Right Arm] 02 Sat by Pulse Oximetry 99 99 Oxygen Delivery Method Room Air Lab Data Lab Results 05/24/25 12:40: SARS-CoV-2 (PCR) Not detected, Influenza A Untype (PCR) Not detected, Influenza Type B (PCR) Not detected 05/24/25 13:29: WBC 10.5, RBC 4.79, Hgb 14.2, Hct 41.0, MCV 85.6, MCH 29.6, MCHC 34.6, RDW 12.2, Plt Count 509 H, MPV 9.7, Neut % (Auto) 71.6, Lymph % (Auto) 21.3, [place] % (Auto) 5.7, Eos % (Auto) 0.2, Baso % (Auto) 0.6, Neut # (Auto) 7.5, Lymph # (Auto) 2.2, [place] # (Auto) 0.6, Eos # (Auto) 0.0, Baso # (Auto) 0.1, Sodium 139, Potassium 3.3 L, Chloride 103, Carbon Dioxide 25, Anion Gap 14.3, BUN 15, Creatinine 0.60, Estimated Creat Clear 89, Estimated GFR 124, Est GFR ( Amer) 150, Glucose 101 H, Calcium 10.1, Magnesium 2.0, Total Bilirubin 0.9, AST 30, ALT 12, Alkaline Phosphatase 94, Total Protein 8.3 H, Albumin 5.2 H , Globulin 3.1, Albumin/Globulin Ratio 1.7, Serum HCG, Qual Negative, Urine Color Lamb, Urine Appearance Cloudy, Urine pH 6.5, Ur Specific Dennis >= 1.030, Urine Protein 2+ A, Urine Glucose (UA) Negative, Urine Ketones 3+, Urine Blood 3+ A, Urine Nitrate Negative, Urine Bilirubin 1+ A, Urine Urobilinogen 1.0, Ur Leukocyte Esterase Negative, Urine RBC 50-100, Urine WBC 3-5, Ur Squamous Epith Cells Occasional, Urine Bacteria Trace, Salicylates < 1.0 L, Urine Opiates Screen Negative, Urine Methadone Screen Negative, Acetaminophen < 10 L, Ur Barbituates Screen Negative, Ur Phencyclidine Scrn Negative, Ur Amphetamines Screen Negative, U Benzodiazepines Scrn Negative, Urine Cocaine Screen Negative, U Marijuana (THC) Screen Negative, Plasma/Serum Alcohol < 10 Orders (Tests/Meds): ED MEDICATIONS Discontinued Medications Generic Name Dose Route Start Last Admin Trade Name Freq PRN Reason Stop Dose Admin Potassium Chloride 40 meq 05/24/25 14:28 05/24/25 14:36 Potassium Chloride 20meq Tab PO 05/24/25 14:29 40 meq ONCE ONE Administration ORDERS Category Date Time Status Acetaminophen Stat Lab 05/24/25 13:29 Completed Complete Blood Count Auto Diff Stat Lab 05/24/25 13:29 Completed Comprehensive Metabolic Panel Stat Lab 05/24/25 13:29 Completed Drug Screen,Urine Stat Lab 05/24/25 13:29 Completed Ethanol [Ethyl Alcohol] Stat Lab 05/24/25 13:29 Completed HCG Qualitative, Serum Stat Lab 05/24/25 13:29 Completed Magnesium Stat Lab 05/24/25 13:29 Completed Rapid PCR Covid and Flu A/B Stat Lab 05/24/25 12:40 Completed Salicylate Stat Lab 05/24/25 13:29 Completed Urinalysis and Microscopic Stat Lab 05/24/25 13:29 Completed Medical Decision Narrative: 25-year-old female presents to the emergency department with multiple symptomatology, see HPI for detailed past medical history, differential diagnose include but not limited to, anxiety, panic attack, illness anxiety disorder, PTSD, acute stress disorder, borderline personality disorder, acute psychosis, among others. I discussed this patient's case with the attending physician Dr. Hernandez Will obtain basic laboratory studies, EKG, acetaminophen level, serum hCG, salicylate level at the alcohol level, UDS, magnesium PCR COVID and flu, urinalysis diarrheal panel CBC is notable for thrombocytosis 509 COVID-19 and influenza are negative via PCR CMP is notable for hypokalemia 3.3, thus replace with 40 mill equivalents p.o. potassium, otherwise unremarkable CMP Salicylate level and acetaminophen level alcohol level within normal limit. UA is notable for 2+ proteinuria, 3+ hematuria 1+ bilirubin, 50-100 RBCs 3-5 WBCs occasional squamous cells and urine bacteria trace UDS is negative Chet Hernandez MD: I was consulted by the DOMINGA, and we discussed the complexity of the problems being addressed. I approved the treatment and management plan for this patient's care in the emergency department, thus performing a substantive portion of the medical decision making. I agree with initial workup and final disposition was pending at time of transition of care to the oncoming physician, Dr. Dwyer. hCG qualitative negative. Notified by nursing staff that the [facility] reviewed all the patient's records, and discussed case with nursing staff, patient was accepted at the [facility] by . Both I and attending physician Dr. Hernandez had a long discussion with the patient at the bedside, patient would like to go POV to the [facility], discussed all risk and benefits of going POV, patient voiced understanding and agreement with the current treatment plan/transfer plan. Divina Dwyer DO I assumed care of the patient at 1500. Patient was sent by POV to the [facility]. Patient was not suicidal or homicidal did not have any other acute interventions for involuntary hold therefore patient was sent on a voluntary basis. Critical Care <Chet Hernandez MD - Last Filed: 05/24/25 15:03> Critical Care Time Critical Care Time: No
--- OUTSIDE RECORDS SUMMARY | 2025-05-24 13:20 | XMS_ITS | Encounter Summary ---
Author Organization Healthcare Address [address] [id number] Care Team Providers Care Automobile Damage Field Appraiser Name Role Phone Sarika Moyer PEDIATRIC LPN Primary Care Provider + Encounter Details Date [...] on filedocumented in this encounter Care Teams Automobile Damage Field Appraiser Relationship Specialty Start Date End Date Sarika Moyer, PEDIATRIC LPN [address] [place] [address] PCP - General 10/14/20 documented as of this encounter
--- OUTSIDE RECORDS SUMMARY | 2025-05-24 13:21 | XMS_ITS | Encounter Summary ---
Author Organization [employer] ([place], [place], [place], [place], [place]) Address [address] [place] [address] Care Team Providers Care Manager Supplier Name Role Phone Sarika Moyer PLANETARIUM SKY SHOW TECHNICIAN Primary Care Provider + Encounter Details [...] on filedocumented in this encounter Care Teams Manager Supplier Relationship Specialty Start Date End Date Sarika Moyer APRN [address] [place] [address] PCP - General Nurse Practitioner 04/05/25 documented as of this encounter
--- OUTSIDE RECORDS SUMMARY | 2025-05-24 13:21 | XMS_ITS | Encounter Summary ---
Author Organization [employer] ([place], [place], [place], [place], [place]) Address [address] [place] [address] Care Team Providers Care Principal Archaeologist Name Role Phone Sarika Moyer MARKETING REPRESENTATIVE Primary Care Provider + Encounter Details [...] on filedocumented in this encounter Care Teams Principal Archaeologist Relationship Specialty Start Date End Date Sarika Moyer APRN [address] [place] [address] PCP - General Nurse Practitioner 04/05/25 documented as of this encounter
--- OUTSIDE RECORDS SUMMARY | 2025-05-24 13:21 | XMS_ITS | Referral Summary ---
Author Organization [employer] ([place], [place], [place], [place], [place]) Address [address] [place] [address] Care Team Providers Care Stringed Instrument Tuner Name Role Phone Sarika Moyer C T TECH Primary Care Provider + Encounters Date Type Department Care Team Description 05/09/2025 Travel 05/09/2025 8:03 AM EST - 05/09/2025 10:03 AM EST Emergency [facility] Emergency Department [address] [place], [place] [phone] Elsa Morton MD Neck pain on right side (Primary Dx); Headache Discharge Disposition: Home or Self Care 05/05/2025 Travel 05/05/2025 9:58 PM EST - 05/05/2025 10:08 PM EST Emergency [facility] Emergency Department [address] [place], [place] [phone] Keke Gar MD Cervical paraspinal muscle spasm (Primary Dx) Discharge Disposition: Home or Self Care 04/29/2025 Travel 04/29/2025 6:54 PM EST - 04/29/2025 10:26 PM EST Emergency [facility] Emergency Department [address] [place], [place] [phone] Zara Ross MD Periumbilical abdominal pain (Primary Dx) Discharge Disposition: Home or Self Care 04/18/2025 Travel 04/18/2025 7:23 PM EST - 04/18/2025 9:25 PM EST Emergency [facility] Emergency Department [address] [place], [place] [phone] Toy Egan MD Vaginal bleeding (Primary Dx) Discharge Disposition: Home or Self Care 04/10/2025 11:39 PM EST - 04/11/2025 5:09 AM EST Emergency [facility] Emergency Department [address] [place] [address] Farzad Stiles MD Ectopic (Primary Dx); Hypokalemia Discharge Disposition: Home or Self Care 04/10/2025 Travel 04/05/2025 10:43 PM EST - 04/06/2025 2:31 AM EST Emergency [facility] Emergency Department [address] [place] [address] Keke Gar MD Ectopic (Primary [...] Transcribed by Liyah Syed Elsa Morton MD [facility] ORDERABLES Final Result * CT ABDOMEN/PELVIS [...] as reasonably achievable (ALARA) Zara Ross MD [facility] ORDERABLES Final R esult * ECG 12 lead (04/29/2025 7:34 PM EST) VENTRICULAR RATE EKG/MIN 78 BPM GE MUSE ATRIAL RATE (MCT) 78 BPM GE MUSE OK Interval 116 ms GE MUSE QRS-INTERVAL (MSEC) 80 ms GE MUSE QT Interval 376 ms GE MUSE QTC Interval 428 ms GE MUSE P [place] 52 degrees GE MUSE R AXIS (MCT) -52 degrees GE MUSE T [place] 43 degrees GE MUSE [place] Diagnosis Normal sinus rhythm Left anterior fascicular [...] UA Light Yellow 04/29/2025 7:54 PM EST [facility] Clarity, UA Turbid 04/29/2025 7:54 PM EST [facility] Specific [place], UA 1.020 1.002 - 1.030 04/29/2025 7:54 PM EST [facility] pH, UA 7.0 5.0 - 9.0 04/29/2025 7:54 PM EST [facility] Leukocytes, UA Negative Negative 04/29/2025 7:54 PM EST [facility] Nitrite, UA Negative Negative 04/29/2025 7:54 PM EST [facility] Protein, UA Trace(A) Negative 04/29/2025 7:54 PM EST [facility] Glucose, UA Negative Negative 04/29/2025 7:54 PM EST [facility] Ketones, UA Negative Negative 04/29/2025 7:54 PM EST [facility] Bilirubin, UA Negative Negative 04/29/2025 7:54 PM EST [facility] Blood, UA Negative Negative 04/29/2025 7:54 PM EST [facility] Urobilinogen, UA 0.2 mg/dL Normal 04/29/2025 7:54 PM EST [facility] Specimen Source Urine, Clean Catch 04/29/2025 7:54 PM EST [facility] Urine URINE SPECIMEN COLLECTION, CLEAN CATCH / Unknown 04/29/2025 7:34 PM EST 04/29/2025 7:40 PM EST us Zara Ross MD URINE ORDERABLES Final Re sult [facility] [address] [place] [address] * (ABNORMAL) Urinalysis Microscopic Only (04/29/2025 7:34 PM EST) WBC, UA Occasional None Seen, Occasional , 0-5 /HPF 04/29/2025 7:55 PM [facility] RBC, UA None Seen None Seen, Rare /HPF 04/29/2025 7:55 PM EST [facility] Bacteria, UA 2+(A) None Seen 04/29/2025 7:55 PM [facility] Amorphous Crystals 2+(A) None Seen, Trace 04/29/2025 7:55 PM EST [facility] SQUAMOUS EPITHELIAL Occasional(A) None Seen, Rare /HPF 04/29/2025 7:55 PM EST [facility] Urine URINE SPECIMEN COLLECTION, CLEAN CATCH / Unknown 04/29/2025 7:34 PM EST 04/29/2025 7:40 PM EST us Zara Ross MD URINE ORDERABLES Final Re sult [facility] [address] [place] [address] * (ABNORMAL) CBC with Auto Diff (04/29/2025 7:31 PM EST) Only the most recent of3 resultswithin the time period is included. WBC 9.4 4.8 - 10.8 K/ L 04/29/2025 7:44 PM [facility] RBC 4.73 3.50 - 5.20 M/ L 04/29/2025 7:44 PM [facility] Hemoglobin 13.7 11.7 - 15.8 GM/DL 04/29/2025 7:44 PM [facility] Hematocrit 41.2 35.0 - 47.0 % 04/29/2025 7:44 PM [facility] MCV 87 81 - 101 fL 04/29/2025 7:44 PM [facility] MCH 29.0 27.0 - 34.0 pg 04/29/2025 7:44 PM [facility] MCHC 33.3 32.0 - 36.0 GM/DL 04/29/2025 7:44 PM [facility] RDW 12.9 11.5 - 14.5 % 04/29/2025 7:44 PM [facility] Platelets 501(H) 150 - 400 K/CU MM 04/29/2025 7:44 PM [facility] MPV 9.1(L) 9.4 - 12.4 fL 04/29/2025 7:44 PM [facility] Nucleated Red Blood Cell 0.0 0 - 0.2 % 04/29/2025 7:44 PM [facility] % Neutros 64 37 - 80 % 04/29/2025 7:44 PM [facility] % Lymphs 28 10 - 50 % 04/29/2025 7:44 PM [facility] % Monos 7 5 - 13 % 04/29/2025 7:44 PM [facility] % Eos 0.5 0.0 - 7.0 % 04/29/2025 7:44 PM [facility] % Baso 0 0 - 3 % 04/29/2025 7:44 PM [facility] NRBC Absolute <0.01 0 - 0.012 K/ul 04/29/2025 7:44 PM EST [facility] # Neutros 6.04 2.00 - 6.90 K/ L 04/29/2025 7:44 PM EST [facility] # Lymphs 2.60 0.60 - 3.40 K/ L 04/29/2025 7:44 PM EST [facility] # Monos 0.69 0.00 - 0.90 K/ L 04/29/2025 7:44 PM EST [facility] # Eos 0.05 0.00 - 0.70 K/ L 04/29/2025 7:44 PM EST [facility] # Baso 0.04 0.00 - 0.20 K/ L 04/29/2025 7:44 PM EST [facility] % Imm Grans 0.10 % 04/29/2025 7:44 PM EST [facility] # IG 0.01(H) 0.00 - 0.00 K/uL 04/29/2025 7:44 PM EST [facility] Blood Venipuncture / Unknown 04/29/2025 7:31 PM EST 04/29/2025 7:40 PM EST Narrative [facility] - 04/29/2025 7:44 PM [...] MD LAB BLOOD ORDERABLES Lainey mckay Result [facility] [address] [place], [place] [address] [phone] * (ABNORMAL) High Sensitivity Troponin I (04/29/2025 7:31 PM EST) Troponin I High Sensitivity (pg/mL) <4(L) 4 - 60.3 pg/mL 04/29/2025 8:08 PM EST [facility] Comment: Troponin Result (pg/mL) [...] ORDERABLES Lainey l Result Performing Organization Address [facility] Co de Phone Number [facility] [address] [place] [address] * D-dimer (04/29/2025 7:31 PM EST) D-Dimer, Quant ([facility]) 140.69 <=500.00 ng/mL FEU 04/29/2025 8:13 PM EST [facility] Comment: A normal D-dimer [...] ORDERABLES Lainey l Result Performing Organization Address [facility]/ZIP Co de Phone Number [facility] [address] [place] [address] * hCG, quantitative, (04/29/2025 7:31 PM EST) Only the most recent of3 resultswithin the time period is included. Pathologist [facility] HCG Serum Quant 1 mIU/mL 8:07 PM EST [facility] Comment: Results [...] MD LAB BLOOD ORDERABLES Lainey l Result [facility] [address] [place] [address] * Lipase (04/29/2025 7:31 PM EST) [facility] Lipase 40 16 - 77 U/L 04/29/2025 8:07 PM EST [facility] Blood Venipuncture / Unknown 04/29/2025 7:31 PM EST 04/29/2025 7:40 PM EST Zara Ross MD LAB BLOOD ORDERABLES Lainey l Result [facility] [address] [place] [address] * (ABNORMAL) Comprehensive metabolic panel (04/29/2025 7:31 PM EST) Only the most recent of3 resultswithin the time period is included. Sodium 140 136 - 145 meq/L 04/29/2025 8:07 PM [facility] Potassium 3.6 3.5 - 5.1 meq/L 04/29/2025 8:07 PM [facility] Chloride 102 98 - 107 meq/L 04/29/2025 8:07 PM [facility] CO2 29 21 - 32 meq/L 04/29/2025 8:07 PM [facility] Calcium 9.6 8.5 - 10.1 mg/dL 04/29/2025 8:07 PM [facility] Glucose 89 74 - 100 mg/dL 04/29/2025 8:07 PM [facility] BUN 12 7 - 18 mg/dL 04/29/2025 8:07 PM [facility] Creatinine 0.54(L) 0.55 - 1.10 mg/dL 04/29/2025 8:07 PM [facility] BUN/Creatinine 22 04/29/2025 8:07 PM [facility] Albumin 4.5 3.4 - 5.0 g/dL 04/29/2025 8:07 PM [facility] Alkaline Phosphatase 97 46 - 116 U/L 04/29/2025 8:07 PM [facility] ALT 12 12 - 78 U/L 04/29/2025 8:07 PM [facility] AST 12(L) 15 - 37 U/L 04/29/2025 8:07 PM [facility] Total Bilirubin 0.3 0.2 - 1.0 mg/dL 04/29/2025 8:07 PM [facility] Protein, Total 8.1 6.4 - 8.2 gm/dL 04/29/2025 8:07 PM [facility] Anion Gap 13 11 - 22 04/29/2025 8:07 PM [facility] A/G Ratio 1.3 04/29/2025 8:07 PM EST [facility] Globulin 3.6 g/dL 04/29/2025 8:07 PM EST [facility] Osmolality Calc 278.6 mOsm/kg 8:07 PM EST [facility] eGFR (mL/min/1.73m2) >60 >=60 mL/min/1.7 3m2 04/29/2025 8:07 PM EST [facility] Comment:ESTIMATED GFR IS NOT ACCURATE CREATININE CLEARANCE IN PREDICTING GLOMERULAR FILTRATION RATE. ESTIMATED GFR IS NOT APPLICABLE FOR DIALYSIS PATIENTS. Blood Venipuncture / Unknown 04/29/2025 7:31 PM EST 04/29/2025 7:40 PM EST us Zara Ross MD LAB BLOOD ORDERABLES Lainey mckay Result [facility] [address] [place] [address] * US OB transvaginal (04/11/2025 2:29 AM [...] EST) Color, UA Yellow 04/05/2025 11:43 PM [facility] Clarity, UA Clear 04/05/2025 11:43 PM [facility] Specific [place], UA 1.025 1.002 - 1.030 04/05/2025 11:43 PM [facility] pH, UA 6.0 5.0 - 9.0 04/05/2025 11:43 PM [facility] Leukocytes, UA Negative Negative 04/05/2025 11:43 PM [facility] Nitrite, UA Negative Negative 04/05/2025 11:43 PM [facility] Protein, UA 1+(A) Negative 04/05/2025 11:43 PM [facility] Glucose, UA Negative Negative 04/05/2025 11:43 PM [facility] Ketones, UA Trace(A) Negative 04/05/2025 11:43 PM [facility] Urobilinogen, UA 0.2 mg/dL Normal 04/05/2025 11:43 PM [facility] Bilirubin, UA Negative Negative 04/05/2025 11:43 PM [facility] Blood, UA 3+(A) Negative 04/05/2025 11:43 PM [facility] RBC, UA 5-10(A) None Seen, Rare /HPF 04/05/2025 11:43 PM [facility] WBC, UA 0-5 None Seen, Occasional , 0-5 /HPF 04/05/2025 11:43 PM [facility] Bacteria, UA 2+(A) None Seen 04/05/2025 11:43 PM [facility] Mucus 1+(A) Trace 04/05/2025 11:43 PM EST [facility] SQUAMOUS EPITHELIAL 0-5(A) None Seen, Rare /HPF 04/05/2025 11:43 PM EST [facility] Ca Oxalate [place], UA 2+(A) (none) 04/05/2025 11:43 PM EST [facility] Specimen Source Urine, Clean Catch 04/05/2025 11:43 PM EST [facility] Urine URINE SPECIMEN COLLECTION, CLEAN CATCH / Unknown 04/05/2025 11:04 PM EST 04/05/2025 11:04 PM EST us Keke Gar MD URINE ORDERABLES Final Re sult [facility] [address] [id number], [facility] [phone] from Last 3 Months Insurance [facility] Care Teams Stringed Instrument Tuner Relationship Specialty Start Date End Date Sarika Moyer, C T TECH [address] [place] [address] PCP - General Nurse Practitioner 04/05/25
--- OUTSIDE RECORDS SUMMARY | 2025-05-24 13:21 | XMS_ITS | Encounter Summary ---
Author Organization [employer] ([place], [place], [place], [place], [place]) Address [address] [place] [address] Care Team Providers Care Quality Control Microbiologist Name Role Phone Sarika Moyer BANK RECONCILIATOR Primary Care Provider + Encounter Details Date [...] on filedocumented in this encounter Care Teams Quality Control Microbiologist Relationship Specialty Start Date End Date Sarika Moyer APRN [address] [place] [address] PCP - General Nurse Practitioner 04/05/25 documented as of this encounter
--- OUTSIDE RECORDS SUMMARY | 2025-05-24 13:21 | XMS_ITS | Clinical Summary ---
Author Organization Healthcare Address [address] [phone] Care Team Providers Care Recovery Analyst Name Role Phone Sarika Moyer DIRECTOR OF OUTSIDE SALES Primary Care Provider + Allergies Active Allergy Reactions Criticality Noted Date Comments Escitalopram Anaphylaxis High 03/27/2025 Robitussin Dm Max Day-Night Anxiety Low 03/27/20 Medications No known medications Active Problems Comments Yes No known active problems Encounters Date Type Department Care Team Description 03/27/2025 8:35 PM EDT - 03/28/2025 1:22 AM EDT Emergency [facility] Emergency Department [address] [place] [address] Rose Cortes MD of unknown anatomic location (Primary Dx) Discharge Disposition: Home or Self Care 03/27/2025 Travel 03/17/2025 Telephone Obstetrics & Gynecology [address] [place] [phone] Chiki Cardenas MD from Last 3 [...] 10/19/2024 10/19/2014, 05/21/2006, 08/26/2003, Additional history exists [id number] Vaccine ( - season) 2025 UKY-Influenza Vaccine [...] Reactive Non Reactive 03/27/2025 9:26 PM EDT [facility] Comment:Screening for HIV 1 & 2 antibodies, and P24 antigen is NONREACTIVE. No confirmatory testing is required. Blood Venous blood specimen / Unknown Venipuncture / Unknown 03/27/2025 8:31 PM EDT 03/27/2025 8:44 PM EDT Rose Cortes MD LAB BLOOD ORDERABLES Final Resu lt [facility] [address] [place] [address] * Hepatitis C Antibody - ED (03/27/2025 8:31 PM EDT) Hepatitis C Antibody Negative Negative 03/27/2025 9:26 PM EDT [facility] Blood Venous blood specimen / Unknown Venipuncture / Unknown 03/27/2025 8:31 PM EDT 03/27/2025 8:44 PM EDT us Rose Cortes MD LAB BLOOD ORDERABLES Final Resu lt [facility] [address] [place] [address] * (ABNORMAL) CBC w/diff (03/27/2025 8:31 PM EDT) Pathologist [facility] WBC Count 11.76(H) 3.70 - 10.30 10*3/uL LAB HEMATOLOGY METHOD 03/27/2025 8:44 PM EDT [facility] RBC Count 4.82 3.90 - 5.20 10*6/uL LAB HEMATOLOGY METHOD 03/27/2025 8:44 PM EDT [facility] HGB 14.2 11.2 - 15.7 g/dL LAB HEMATOLOGY METHOD 03/27/2025 8:44 PM EDT [facility] HCT 39.9 34.0 - 45.0 % LAB HEMATOLOGY METHOD 03/27/2025 8:44 PM EDT [facility] Platelet Count 523(H) 155 - 369 10*3/uL LAB HEMATOLOGY METHOD 03/27/2025 8:44 PM EDT [facility] MCV 83 79 - 98 fL LAB HEMATOLOGY METHOD 03/27/2025 8:44 PM EDT [facility] MCH 29.5 26.0 - 32.0 pg LAB HEMATOLOGY METHOD 03/27/2025 8:44 PM EDT [facility] MCHC 35.6(H) 30.7 - 35.5 g/dL LAB HEMATOLOGY METHOD 03/27/2025 8:44 PM EDT [facility] RDW 12.2 11.5 - 14.5 % LAB HEMATOLOGY METHOD 03/27/2025 8:44 PM EDT [facility] MPV 9.3 8.8 - 12.5 fL LAB HEMATOLOGY METHOD 03/27/2025 8:44 PM EDT [facility] nRBC 0.0 <=0.0 per 100 WBCs LAB HEMATOLOGY METHOD 03/27/2025 8:44 PM EDT [facility] Differential Type Automated LAB HEMATOLOGY METHOD 03/27/2025 8:44 PM EDT [facility] Neutrophils % 71 % LAB HEMATOLOGY METHOD 03/27/2025 8:44 PM EDT [facility] Lymphocytes % 25 % LAB HEMATOLOGY METHOD 03/27/2025 8:44 PM EDT [facility] Monocytes % 4 % LAB HEMATOLOGY METHOD 03/27/2025 8:44 PM EDT [facility] Eosinophils % 0 % LAB HEMATOLOGY METHOD 03/27/2025 8:44 PM EDT [facility] Basophils % 0 % LAB HEMATOLOGY METHOD 03/27/2025 8:44 PM EDT [facility] Immature Granulocytes % 0 % LAB HEMATOLOGY METHOD 03/27/2025 8:44 PM EDT [facility] Neutrophils Absolute 8.17(H) 1.60 - 6.10 10*3/uL LAB HEMATOLOGY METHOD 03/27/2025 8:44 PM EDT [facility] Lymphocytes Absolute 2.96 1.20 - 3.90 10*3/uL LAB HEMATOLOGY METHOD 03/27/2025 8:44 PM EDT [facility] Monocytes Absolute 0.52 0.30 - 0.90 10*3/uL LAB HEMATOLOGY METHOD 03/27/2025 8:44 PM EDT [facility] Eosinophils Absolute 0.03 0.00 - 0.50 10*3/uL LAB HEMATOLOGY METHOD 03/27/2025 8:44 PM EDT [facility] Basophils Absolute 0.05 0.00 - 0.10 10*3/uL LAB HEMATOLOGY METHOD 03/27/2025 8:44 PM EDT [facility] Immature Granulocytes Absolute 0.03 0.00 - 0.06 10*3/uL LAB HEMATOLOGY METHOD 03/27/2025 8:44 PM EDT [facility] Blood Venous blood specimen / Unknown Venipuncture / Unknown 03/27/2025 8:31 PM EDT 03/27/2025 8:41 PM EDT Narrative [facility] - 03/27/2025 8:44 PM EDT Therapeutic decision making should be based on absolute values, rather than percentages. Rose Cortes MD LAB BLOOD ORDERABLES Final Resu lt Performing Organization Address City/[facility]/ZIP Co de Phone Number [facility] [address] [place] [address] * Type and screen (03/27/2025 8:31 PM [...] ORDERABLES Final Result Performing Organization Address [facility] de Phone Number BLOOD BANK [address] [place] [address] * (ABNORMAL) hCG, quantitative, (03/27/2025 8:31 PM EDT) hCG, Total Beta 626.2(H) <5 mIU/mL 03/27/2025 9:22 PM EDT [facility] Blood Venous blood specimen / Unknown Venipuncture / Unknown 03/27/2025 8:31 PM EDT 03/27/2025 8:41 PM EDT Narrative [facility] - 03/27/2025 9:22 PM [...] MD LAB BLOOD ORDERABLES Final Resu lt [facility] [address] [place] [address] * (ABNORMAL) CMP (03/27/2025 8:31 PM EDT) Glucose, Plasma 96 74 - 99 mg/dL 03/27/2025 9:22 PM EDT [facility] BUN, Plasma 11 7 - 21 mg/dL 03/27/2025 9:22 PM EDT [facility] Creatinine, Plasma 0.48(L) 0.60 - 1.10 mg/dL 03/27/2025 9:22 PM EDT [facility] BUN/Creatinine Ratio 23 03/27/2025 9:22 PM EDT [facility] Sodium, Plasma 136 136 - 145 mmol/L 03/27/2025 9:22 PM EDT [facility] Potassium, Plasma 3.1(L) 3.6 - 4.9 mmol/L 03/27/2025 9:22 PM EDT [facility] Chloride, Plasma 100 97 - 107 mmol/L 03/27/2025 9:22 PM EDT [facility] CO2, Plasma 20(L) 22 - 29 mmol/L 03/27/2025 9:22 PM EDT [facility] Anion Gap 16 6 - 16 mmol/L 03/27/2025 9:22 PM EDT [facility] Total Calcium, Plasma 9.8 8.9 - 10.2 mg/dL 03/27/2025 9:22 PM EDT [facility] Total Protein 7.7 6.3 - 7.9 g/dL 03/27/2025 9:22 PM EDT [facility] Albumin, Plasma 4.9 3.5 - 5.2 g/dL 03/27/2025 9:22 PM EDT [facility] AST, Plasma 17 10 - 35 U/L 03/27/2025 9:22 PM EDT [facility] ALT, Plasma 8(L) 10 - 35 U/L 03/27/2025 9:22 PM EDT [facility] Alkaline Phosphatase, Plasma 102 35 - 104 U/L 03/27/2025 9:22 PM EDT [facility] Total Bilirubin, Plasma 1.3(H) 0.2 - 1.1 mg/dL 03/27/2025 9:22 PM EDT [facility] eGFRcr 137.5 mL/min/1.7 3m*2 03/27/2025 9:22 PM EDT [facility] Comment:Reported eGFRcr in m L/min/1.73m2 is based the CKD-EPI 2020 equation that does not use a race coefficient. Blood Venous blood specimen / Unknown Venipuncture / Unknown 03/27/2025 8:31 PM EDT 03/27/2025 8:41 PM EDT us Rose Cortes MD LAB BLOOD ORDERABLES Final Resu lt [facility] [address] [place] [address] from Last 3 Months Insurance [facility] [employer] Care Teams Recovery Analyst Relationship Specialty Start Date End Date Sarika Moyer APRN [address] [place] [id number] PCP - General 10/14/20
--- OUTSIDE RECORDS SUMMARY | 2025-05-24 13:21 | XMS_ITS | Clinical Summary ---
Author Organization [employer] ([place], [place], [place], [place], [place]) Address [address] [place] [address] Care Team Providers Care Pipe Fitter Supervisor Maintenance Name Role Phone Sarika Moyer MEDIA SALES CONSULTANT Primary Care Provider + Allergies Active Allergy [...] EST - 05/09/2025 10:03 AM EST Emergency [facility] Emergency Department [address] [place] [phone] Elsa Morton MD Neck pain on right side (Primary Dx); Headache Discharge Disposition: Home or Self Care 05/09/2025 Travel 05/05/2025 9:58 PM EST - 05/05/2025 10:08 PM EST Emergency [facility] Emergency Department [address] [place] [phone] Keke Gar MD Cervical paraspinal muscle spasm (Primary Dx) Discharge Disposition: Home or Self Care 05/05/2025 Travel 04/29/2025 6:54 PM EST - 04/29/2025 10:26 PM EST Emergency [facility] Emergency Department [address] [place] [phone] Zara Ross MD Periumbilical abdominal pain (Primary Dx) Discharge Disposition: Home or Self Care 04/29/2025 Travel 04/18/2025 7:23 PM EST - 04/18/2025 9:25 PM EST Emergency [facility] Emergency Department [address] [place] [phone] Toy Egan MD Vaginal bleeding (Primary Dx) Discharge Disposition: Home or Self Care 04/18/2025 Travel 04/10/2025 11:39 PM EST - 04/11/2025 5:09 AM EST Emergency [facility] Emergency Department [facility] [place] [phone] Farzad Stiles MD Ectopic (Primary Dx); Hypokalemia Discharge Disposition: Home or Self Care 04/10/2025 Travel 04/05/2025 10:43 PM EST - 04/06/2025 2:31 AM EST Emergency [facility] Emergency Department [address] [place] [phone] Keke Gar MD Ectopic (Primary Dx) Discharge [...] ATRIAL RATE (MCT) 78 BPM GE MUSE RI Interval 116 ms GE MUSE QRS-INTERVAL (MSEC) 80 ms GE MUSE QT Interval 376 ms GE MUSE QTC Interval 428 ms GE MUSE P Dime Box 52 degrees GE MUSE R AXIS (MCT) -52 degrees GE MUSE T Wave Dime Box 43 degrees GE MUSE Leslie Diagnosis Normal sinus rhythm Left anterior fascicular [...] UA Light Yellow 04/29/2025 7:54 PM EST [facility] Clarity, UA Turbid 04/29/2025 7:54 PM EST [facility] Specific [place], UA 1.020 1.002 - 1.030 04/29/2025 7:54 PM EST [facility] pH, UA 7.0 5.0 - 9.0 04/29/2025 7:54 PM EST [facility] Leukocytes, UA Negative Negative 04/29/2025 7:54 PM EST [facility] Nitrite, UA Negative Negative 04/29/2025 7:54 PM EST [facility] Protein, UA Trace(A) Negative 04/29/2025 7:54 PM EST [facility] Glucose, UA Negative Negative 04/29/2025 7:54 PM EST [facility] Ketones, UA Negative Negative 04/29/2025 7:54 PM EST [facility] Bilirubin, UA Negative Negative 04/29/2025 7:54 PM EST [facility] Blood, UA Negative Negative 04/29/2025 7:54 PM [facility] Urobilinogen, UA 0.2 mg/dL Normal 04/29/2025 7:54 PM EST [facility] Specimen Source Urine, Clean Catch 04/29/2025 7:54 PM [facility] Urine URINE SPECIMEN COLLECTION, CLEAN CATCH / Unknown 04/29/2025 7:34 PM EST 04/29/2025 7:40 PM EST us Zara Ross MD URINE ORDERABLES Final Re sult [facility] [address] [place] [address] * (ABNORMAL) Urinalysis Microscopic Only (04/29/2025 7:34 PM EST) WBC, UA Occasional None Seen, Occasional , 0-5 /HPF 04/29/2025 7:55 PM [facility] RBC, UA None Seen None Seen, Rare /HPF 04/29/2025 7:55 PM [facility] Bacteria, UA 2+(A) None Seen 04/29/2025 7:55 PM [facility] Amorphous Crystals 2+(A) None Seen, Trace 04/29/2025 7:55 PM EST [facility] SQUAMOUS EPITHELIAL Occasional(A) None Seen, Rare /HPF 04/29/2025 7:55 PM [facility] Urine URINE SPECIMEN COLLECTION, CLEAN CATCH / Unknown 04/29/2025 7:34 PM EST 04/29/2025 7:40 PM EST us Zara Ross MD URINE ORDERABLES Final Re sult [facility] [address] [place] [address] * (ABNORMAL) CBC with Auto Diff (04/29/2025 7:31 PM EST) Only the most recent of3 resultswithin the time period is included. WBC 9.4 4.8 - 10.8 K/ L 04/29/2025 7:44 PM [facility] RBC 4.73 3.50 - 5.20 M/ L 04/29/2025 7:44 PM [facility] Hemoglobin 13.7 11.7 - 15.8 GM/DL 04/29/2025 7:44 PM [facility] Hematocrit 41.2 35.0 - 47.0 % 04/29/2025 7:44 PM [facility] MCV 87 81 - 101 fL 04/29/2025 7:44 PM [facility] MCH 29.0 27.0 - 34.0 pg 04/29/2025 7:44 PM [facility] MCHC 33.3 32.0 - 36.0 GM/DL 04/29/2025 7:44 PM [facility] RDW 12.9 11.5 - 14.5 % 04/29/2025 7:44 PM [facility] Platelets 501(H) 150 - 400 K/CU MM 04/29/2025 7:44 PM [facility] MPV 9.1(L) 9.4 - 12.4 fL 04/29/2025 7:44 PM [facility] Nucleated Red Blood Cell 0.0 0 - 0.2 % 04/29/2025 7:44 PM [facility] % Neutros 64 37 - 80 % 04/29/2025 7:44 PM [facility] % Lymphs 28 10 - 50 % 04/29/2025 7:44 PM [facility] % Monos 7 5 - 13 % 04/29/2025 7:44 PM [facility] % Eos 0.5 0.0 - 7.0 % 04/29/2025 7:44 PM [facility] % Baso 0 0 - 3 % 04/29/2025 7:44 PM [facility] NRBC Absolute <0.01 0 - 0.012 K/ul 04/29/2025 7:44 PM [facility] # Neutros 6.04 2.00 - 6.90 K/ L 04/29/2025 7:44 PM [facility] # Lymphs 2.60 0.60 - 3.40 K/ L 04/29/2025 7:44 PM [facility] # Monos 0.69 0.00 - 0.90 K/ L 04/29/2025 7:44 PM [facility] # Eos 0.05 0.00 - 0.70 K/ L 04/29/2025 7:44 PM [facility] # Baso 0.04 0.00 - 0.20 K/ L 04/29/2025 7:44 PM [facility] % Imm Grans 0.10 % 04/29/2025 7:44 PM [facility] # IG 0.01(H) 0.00 - 0.00 K/uL 04/29/2025 7:44 PM [facility] Blood Venipuncture / Unknown 04/29/2025 7:31 PM EST 04/29/2025 7:40 PM EST Narrative [facility] - 04/29/2025 7:44 PM [...] MD LAB BLOOD ORDERABLES Lainey l Result [facility] [address] [phone] * (ABNORMAL) High Sensitivity Troponin I (04/29/2025 7:31 PM EST) [facility] Troponin I High Sensitivity (pg/mL) <4(L) 4 - 60.3 pg/mL 04/29/2025 8:08 PM EST [facility] Comment: Troponin Result (pg/mL) [...] ORDERABLES Lainey l Result Performing Organization Address City/[facility]/ZIP Co de Phone Number [facility] [address] [place] [address] * D-dimer (04/29/2025 7:31 PM EST) [facility] D-Dimer, Quant (SJMS SJE) 140.69 <=500.00 ng/mL FEU 04/29/2025 8:13 PM EST [facility] Comment: A normal D-dimer [...] ORDERABLES Lainey l Result Performing Organization Address City/[facility] Co de Phone Number [facility] [address] [place] [address] * hCG, quantitative, (04/29/2025 7:31 PM EST) Only the most recent of3 resultswithin the time period is included. [facility] HCG Serum Quant 1 mIU/mL 8:07 PM EST [facility] Comment: Results of the [...] MD LAB BLOOD ORDERABLES Lainey l Result [facility] [address] [phone] * Lipase (04/29/2025 7:31 PM EST) Lipase 40 16 - 77 U/L 04/29/2025 8:07 PM EST [facility] Blood Venipuncture / Unknown 04/29/2025 7:31 PM EST 04/29/2025 7:40 PM EST us Zara Ross MD LAB BLOOD ORDERABLES Lainey l Result [facility] [address] [phone] * (ABNORMAL) Comprehensive metabolic panel (04/29/2025 7:31 PM EST) Only the most recent of3 resultswithin the time period is included. Pathologist [facility] Sodium 140 136 - 145 meq/L 04/29/2025 8:07 PM [facility] Potassium 3.6 3.5 - 5.1 meq/L 04/29/2025 8:07 PM [facility] Chloride 102 98 - 107 meq/L 04/29/2025 8:07 PM EST [facility] CO2 29 21 - 32 meq/L 04/29/2025 8:07 PM EST [facility] Calcium 9.6 8.5 - 10.1 mg/dL 04/29/2025 8:07 PM [facility] Glucose 89 74 - 100 mg/dL 04/29/2025 8:07 PM [facility] BUN 12 7 - 18 mg/dL 04/29/2025 8:07 PM [facility] Creatinine 0.54(L) 0.55 - 1.10 mg/dL 04/29/2025 8:07 PM [facility] BUN/Creatinine 22 04/29/2025 8:07 PM [facility] Albumin 4.5 3.4 - 5.0 g/dL 04/29/2025 8:07 PM [facility] Alkaline Phosphatase 97 46 - 116 U/L 04/29/2025 8:07 PM [facility] ALT 12 12 - 78 U/L 04/29/2025 8:07 PM [facility] AST 12(L) 15 - 37 U/L 04/29/2025 8:07 PM [facility] Total Bilirubin 0.3 0.2 - 1.0 mg/dL 04/29/2025 8:07 PM [facility] Protein, Total 8.1 6.4 - 8.2 gm/dL 04/29/2025 8:07 PM [facility] Anion Gap 13 - 04/29/2025 8:07 PM [facility] A/G Ratio 1.3 04/29/2025 8:07 PM [facility] Globulin 3.6 g/dL 04/29/2025 8:07 PM [facility] Osmolality Calc 278.6 mOsm/kg 8:07 PM [facility] eGFR (mL/min/1.73m2) >60 >=60 mL/min/1.7 3m2 04/29/2025 8:07 PM [facility] Comment:ESTIMATED GFR IS NOT ACCURATE CREATININE CLEARANCE IN PREDICTING GLOMERULAR FILTRATION RATE. ESTIMATED GFR IS NOT APPLICABLE FOR DIALYSIS PATIENTS. Blood Venipuncture / Unknown 04/29/2025 7:31 PM EST 04/29/2025 7:40 PM EST us Zara Ross MD LAB BLOOD ORDERABLES Lainey nely Result [facility] [address] [place] [address], [facility] [phone] * US OB transvaginal (04/11/2025 2:29 AM [...] sac. IMPRESSION: Authenticated and Farzad Stiles MD [facility] ORDERABLES Edited Result - Final * (ABNORMAL) Urinalysis w/Microscopic (04/05/2025 11:04 PM EST) Color, UA Yellow 04/05/2025 11:43 PM [facility] Clarity, UA Clear 04/05/2025 11:43 PM [facility] Specific [place], UA 1.025 1.002 - 1.030 04/05/2025 11:43 PM [facility] pH, UA 6.0 5.0 - 9.0 04/05/2025 11:43 PM [facility] Leukocytes, UA Negative Negative 04/05/2025 11:43 PM [facility] Nitrite, UA Negative Negative 04/05/2025 11:43 PM [facility] Protein, UA 1+(A) Negative 04/05/2025 11:43 PM [facility] Glucose, UA Negative Negative 04/05/2025 11:43 PM [facility] Ketones, UA Trace(A) Negative 04/05/2025 11:43 PM EST [facility] Urobilinogen, UA 0.2 mg/dL Normal 04/05/2025 11:43 PM EST [facility] Bilirubin, UA Negative Negative 04/05/2025 11:43 PM EST [facility] Blood, UA 3+(A) Negative 04/05/2025 11:43 PM EST [facility] RBC, UA 5-10(A) None Seen, Rare /HPF 04/05/2025 11:43 PM EST [facility] WBC, UA 0-5 None Seen, Occasional , 0-5 /HPF 04/05/2025 11:43 PM EST [facility] Bacteria, UA 2+(A) None Seen 04/05/2025 11:43 PM EST [facility] Mucus 1+(A) Trace 04/05/2025 11:43 PM EST [facility] SQUAMOUS EPITHELIAL 0-5(A) None Seen, Rare /HPF 04/05/2025 11:43 PM EST [facility] Ca Oxalate [place], UA 2+(A) (none) 04/05/2025 11:43 PM EST [facility] Specimen Source Urine, Clean Catch 04/05/2025 11:43 PM EST [facility] Urine URINE SPECIMEN COLLECTION, CLEAN CATCH / Unknown 04/05/2025 11:04 PM EST 04/05/2025 11:04 PM EST us Keke Gar MD URINE ORDERABLES Final Re sult [facility] [address] [phone] from Last 3 Months Insurance [facility] Care Teams Pipe Fitter Supervisor Maintenance Relationship Specialty Start Date End Date Sarika Moyer, ISAIAH [address] [place], [place] [id number] PCP - General Nurse Practitioner 04/05/25
--- OUTSIDE RECORDS SUMMARY | 2025-05-24 13:21 | XMS_ITS | Encounter Summary ---
Author Organization [employer] ([place], [place], [place], [place], [place]) Address [address] [place] [address] Care Team Providers Care Wrapper Selector Name Role Phone Sarika Moyer SENIOR INFORMATION SECURITY ANALYST Primary Care Provider + Encounter Details [...] on filedocumented in this encounter Care Teams Wrapper Selector Relationship Specialty Start Date End Date Sarika Moyer APRN [address] [place] [address] PCP - General Nurse Practitioner 04/05/25 documented as of this encounter
--- OUTSIDE RECORDS SUMMARY | 2025-05-24 13:22 | XMS_ITS | Encounter Summary ---
Author Organization [employer] ([place], [place], [place], [place], [place]) Address [address] [place] [address] Care Team Providers Care Transportation Manager Name Role Phone Sarika Moyer COMPRESS MACHINE OPERATOR Primary Care Provider + Encounter [...] on filedocumented in this encounter Care Teams Transportation Manager Relationship Specialty Start Date End Date Sarika Moyer APRN [address] [place] [address] PCP - General Nurse Practitioner 04/05/25 documented as of this encounter
--- OUTSIDE RECORDS SUMMARY | 2025-05-24 13:22 | XMS_ITS | Encounter Summary ---
Author Organization [employer] ([place], [place], [place], [place], [place]) Address [address] [place] [address] Care Team Providers Care Preparatory Technician Name Role Phone Sarika Moyer RN WOMEN SERVICES Primary Care Provider + Encounter Details Date [...] on filedocumented in this encounter Care Teams Preparatory Technician Relationship Specialty Start Date End Date Sarika Moyer APRN [address] [place] [address] PCP - General Nurse Practitioner 04/05/25 documented as of this encounter
[2025-05-24 13:38] LABS: Microscopic, Urine URINE MICROSCOPIC (MICROSCOPIC)
[2025-05-24 13:43] LABS: Hematocrit 41.0 % (37.0-47.0); Hemoglobin 14.2 g/dL (12.2-16.2); Immature Granulocytes % 0.6 %; Mean Corpuscular HGB Conc 34.6 g/dL (31.8-35.4); Mean Corpuscular Hemoglobin 29.6 pg (27.0-31.2); Mean Corpuscular Volume 85.6 fl (81-99); Nucleated Red Blood Cells % 0 %; Platelet Count 509 K/mm3 (142-424); Red Blood Count 4.79 M/mm3 (4.20-5.40); Red Cell Distribution Width-SD 38.3 fL; White Blood Count 10.5 K/mm3 (4.8-10.8)
[2025-05-24 13:49] LABS: Albumin Level 5.2 g/dl (3.5-5.0); Chloride 103 mmol/L (98-107); Potassium 3.3 mmoL/L (3.5-5.1); Sodium 139 mmol/L (136-145)
[2025-05-24 13:50] LABS: Color,Urine ORANGE (Yellow); Glucose,Urine (UA) Negative (Negative); Ketones,Urine 3+ (Negative); Leukocyte Esterase,Urine Negative (Negative); PH,Urine 6.5 (5.0-8.5); Protein,Urine 2+ (Negative); Specific Gravity, Urine >= 1.030 (1.005-1.030); Urobilinogen,Urine 1.0 EU/dl (0.2)
[2025-05-24 13:51] LABS: Alanine Aminotransferase 12 U/L (12-78); Blood Urea Nitrogen 15 mg/dl (7-17); Creatinine Clearance Estimated 89 mL/min (50-200); Creatinine,Serum 0.60 mg/dl (0.52-1.04); Estimated Glomerular Filt Rate 124 ml/min (>60); GFR (African American) 150 ML/MIN (>60)
--- NOTE | 2025-05-24 13:51 | ECG_ITS ---
APPROVED REPORT Exam: Resting ECG HR:102 bpm ECG Measurements Heart Rate 102 AXES NV 129 P 65 QRSd 83 QRS 239 QT 335 T 48 QTc 394 Conclusion SINUS TACHYCARDIA PATTERN CONSISTENT WITH PULMONARY DISEASE POSSIBLE RIGHT VENTRICULAR HYPERTROPHY [SOME/ALL OF: PROMINENT R IN V1, LATE TRANSITION, RAD, STEPHANIE, SSS] ABNORMAL ECG Electronically signed by : HUONG PFEIFFER, 05/27/2025 07:13:51
[2025-05-24 13:52] LABS: Albumin/Globulin Ratio 1.7 (1.1-1.8); Alkaline Phosphatase 94 U/L (38-126); Anion Gap 14.3 mEq/L (5-15); Aspartate Amino Transferase 30 U/L (14-36); Bilirubin,Total 0.9 mg/dl (0.2-1.3); Calcium 10.1 mg/dl (8.4-10.2); Carbon Dioxide 25 mmol/L (22.0-30.0); Globulin 3.1 g/dL (1.3-3.2); Glucose 101 mg/dl (74-100); Magnesium 2.0 mg/dl (1.6-2.3); Total Protein,Serum 8.3 g/dl (6.3-8.2)
[2025-05-24 13:53] LABS: Acetaminophen < 10 ug/ml (10-30); Salicylate < 1.0 mg/dL (2.0-20.0)
[2025-05-24 14:00] LABS: Bilirubin,Urine 1+ (Negative)
[2025-05-24 14:03] LABS: Amphetamine/Metha Screen,Urine Negative ng/ml (<1000); Barbiturates Screen,Urine Negative ng/ml (<200)
[2025-05-24 14:04] LABS: Benzodiazepines Screen,Urine Negative ng/ml (<200)
[2025-05-24 14:06] LABS: Bacteria,Urine Trace /lpf; Methadone Screen,Urine Negative ng/ml (<300); RBC,Urine 50-100 #/hpf (0-3); Squamous Epithelial Cell,Urine Occasional #/hpf (0-5)
[2025-05-24 14:07] LABS: Opiate Screen,Urine Negative ng/ml (<300); Phencyclidine Screen,Urine Negative ng/ml (<25)
[2025-05-24] MEDS: POTASSIUM CHLORIDE 20MEQ TAB 40 MEQ PO (14:36)
--- NOTE | 2025-05-24 14:41 | PC.NURSE ---
Called [facility] and spoke with gumaro Barrientos. She gave me fax number [phone] to fax information to and she would speak with technical professional doctor to see if patient meets inpatient criteria.
[2025-05-24 15:14] LABS: HCG Qualitative, Serum Negative (Negative)
--- NOTE | 2025-05-24 15:38 | PC.NURSE ---
This RN calls [facility] to follow up on consult. Per staff the paperwork was just received and they are reviewing it.
--- NOTE | 2025-05-24 15:59 | PC.NURSE ---
[facility] called, states they have accepted patient, Dr. Bowen. PA informed.
== END 2025-05-24 16:13 ==
PROVIDERS: Physician Assistant; Emergency Provider Emergency Medicine; PCP Nurse Practitioner Family
DX: F41.1 Generalized anxiety disorder (principal); R42 Dizziness and giddiness; F45.21 Hypochondriasis; F17.290 Nicotine dependence, other tobacco product, uncomplicated
CPT/HCPCS: 80053; 80307; 80320; 80329; 81001; 83735; 84703; 85025; 87636; 93005; 99285